=== PATIENT | male | born 1995 | race African-American/Black ===

== ENCOUNTER 2017-08-27 12:36 | Emergency (ER) | payer SELFPAY ==
[2017-08-27 12:37] VITALS: BP 157/84; PULSE 94; RESP 18; TEMP 37.2; O2SAT 99; BMI 28.8
[2017-08-27 13:00] LABS: Absolute Lymphocyte Count 1.97 X10^3/ul (0.83-4.51); Absolute Neutrophil Count 8.6 X10^3/uL (2.0-7.7); Basophil# 0.02 X10^3/uL; Basophil% 0.2 % (0-1); Eosinophil# 0.03 X10^3/uL; Eosinophils% 0.3 % (0-5); Hematocrit 48.2 % (40-54); Hemoglobin 16.6 g/dl (13.0-16.5); Lymphocyte # 1.97 X10^3/ul (4.0); Lymphocyte % 17.1 % (19-41); Mean Corp Hgb Conc 34.4 g/gl (32-36); Mean Corpuscular Hgb 31.2 pg (27.0-32.0); Mean Corpuscular Volume 90.6 fL (80-94); Mean Platelet Vol. 10.1 fl (6.2-12.0); Monocyte# 0.88 X10^3/uL; Monocyte% 7.7 % (0-10); Neutrophil # 8.58 X10^3/uL (2.7-7.7); Neutrophil % 74.5 % (47-70); POSITIVE COUNT NO; POSITIVE DIFFERENTIAL NO; POSITIVE MORPHOLOGY NO; Platelet Count 317 K/mm3 (150-450); RBC Distribution Width CV 12.5 % (11.6-14.6); RBC Distribution Width SD 41.2 fl (35.1-43.9); Red Blood Count 5.32 M/mm3 (4.6-6.2); White Blood Count 11.5 K/mm3 (4.4-11.0)
[2017-08-27 13:08] LABS: Anion Gap 7 (5-15); BUN 11 mg/dL (7-18); BUN/Creat Ratio 10.7 RATIO (10-20); Calcium,Total 9.6 mg/dL (8.5-10.1); Chloride 104 mmol/L (98-107); Creatinine, Serum 1.03 mg/dL (0.70-1.30); EST Glomerular Filtration Rate 94 mL/min (>60); Est Glom Filt Rate - Afr Amer 114 mL/min (>60); Estimated Creatinine Clearance 110.59 ml/min; Glucose 97 mg/dL (74-106); Potassium 3.6 mmol/L (3.5-5.1); Sodium Level 138 mmol/L (136-145)
--- NOTE | 2017-08-27 14:07 | ED.VISSUMM ---
- ER Visit Summary Date of Service: 08/27/17 Chief Complaint: Epigastric abdominal pain History of Present Illness: The patient is a 22 M recent sinus infection treated with antibiotics. Since Sunday has developed epigastric abdominal pain with nausea vomiting. And diarrhea. No melena. No hematemesis. No fever. Was treated at another ER diagnosis of viral syndrome. He is complaining of worse pain. Denies any prior abdominal surgeries. No abdominal trauma. No dysuria. No hematuria. Physical Examination: Young male no acute distress. Vital signs are stable afebrile. Pulse is 9 9% room air no signs of hypoxia. He does not look septic or toxic. H EENT exam is unremarkable. Extremities. Neck nontender no lymphadenopathy. Lungs clear to auscultation bilaterally. Heart regular rate and rhythm no murmur. Chest nontender. Abdomen soft. Nondistended normal bowel sounds no peritoneal signs. He does have epigastric tenderness. Both the right upper quadrant right lower quadrants are unremarkable. There is no Granados sign there is no McBurney's point tenderness. No hernias or masses. No signs of obstruction. No organomegaly. Normal bowel sounds. Moving all 4 extremities. Neurovascular intact. Back nontender. Skin unremarkable. Neurologic exam normal. Test Results: Fully awake and 11.5. H&H 1648 no bands. BMP was normal with a normal gap and creatinine of 1. Enzymes normal. Lipase normal UA normal. Emergency Department Course and Treatment: Pt. with epigastric abdominal pain. Treated with IV fluids, GI cocktail and Pepcid. Also Phenergan for nausea. Treatment Plan: Repeat exam at 1640 patient's abdomen benign. Resting comfortably. Again he has very mild epigastric reproducible pain there is no right upper or right lower quadrant pain there is no peritoneal signs there is no signs of obstruction. Patient is doing well I do not feel he needs imaging. There is no signs of this being cholecystitis or acute perforation or appendicitis. Will be placed on Prilosec for gastritis. Disposition: dc Impression: Acute epigastric abdominal pain secondary to gastritis This note was generated with Authentic Response dictation software. It may contain incorrect words, spelling, and punctuation that were not noted in review of the chart prior to signing ED Disposition - Plan for ED Patient: Chief Complaint: Abd Pain Referrals: Care Physician,No Primary [Primary Care Provider] -
[2017-08-27 14:08] LABS: Mucous, Urine 0 SEEN /hpf (<or=2+)
[2017-08-27 14:09] LABS: Color, Urine Yellow (Yellow); Glucose, Dipstick Normal (Normal); Leukocyte Esterase-Dipstick Negative /ul (Negative); Nitrite-Dipstick Negative (Negative); Occult Blood-Urine Negative /ul (Negative); Protein-Dipstick 15 mg/dl (Negative); Urine Bilirubin Dipstick Negative (Negative); Urine Clarity Sl. Cloudy (Clear); Urine Urobilinogen Normal (Normal)
[2017-08-27 14:12] LABS: Ketone-Dipstick 150 mg/dl (Negative)
[2017-08-27] MEDS: Famotidine 20 MG Tablet 40 MG PO (14:13)
[2017-08-27] MEDS: proMETHazine 25 MG/ML Syringe 12.5 MG IV (14:14)
[2017-08-27] MEDS: 0.9% Normal Saline 1,000 ML 1000 ML IV (14:14)
[2017-08-27 14:20] LABS: Bacteria RARE /hpf (None Seen); Red Blood Cells-Urine 0-5 SEEN /hpf (0-5); Squamous Epithelial Cells - UA 0-5 SEEN /hpf (0-5); White Blood Cells 0-5 SEEN /hpf (0-5)
[2017-08-27 14:35] LABS: AST(SGOT) 26 U/L (15-37); Alanine Aminotransfer ALT/SGPT 31 U/L (16-61); Albumin, Serum 4.6 g/dL (3.2-5.0); Alkaline Phosphatase 79 U/L (45-117); Bilirubin, Direct 0.12 mg/dL (0.00-0.30); Globulin 4.2 g/dL (2.2-4.2); Lipase 79 U/L (73-393); Protein, Total 8.8 g/dL (6.4-8.2)
[2017-08-27 15:05] VITALS: BP 127/88; PULSE 97; RESP 20; O2SAT 98
--- NOTE | 2017-08-27 16:46 | DCINST.ED_ITS ---
ED Disposition - Plan for ED Patient: Disposition: Home or Assisted Living Chief Complaint: Abd Pain Instructions: ED Abdominal Pain Unkn Cause, ED Gastritis Prescriptions: proMETHazine tablet [Phenergan tablet] 25 mg PO Q4H PRN PRN #10 tab PRN Reason: Nausea Omeprazole [Prilosec] 20 mg PO BID #10 cap Referrals: Kayla Loco [NON-STAFF] - 3-5 Days if not improving Additional Instructions: Fluids and rest. [place] diet and Return if increasing pain, throwing up blood or black or bloody stools or feeling worse. Phenergan as needed for nausea and Prilosec for irritation to your stomach.
[2017-08-27 17:04] VITALS: PULSE 101; RESP 16; O2SAT 99
== END 2017-08-27 17:17 | disposition home or self-care (01) ==
PROVIDERS: Emergency Provider Emergency Medicine
DX: K29.00 Acute gastritis without bleeding (principal)
CPT/HCPCS: 80048; 80076; 81001; 83690; 85025; 96361; 96374; 99284; J7030; A4216

== ENCOUNTER 2017-08-29 01:37 | Emergency (ER) | payer SELFPAY ==
[2017-08-29 01:38] VITALS: BP 152/93; PULSE 67; RESP 16; TEMP 36.9; O2SAT 100; BMI 27.1
--- NOTE | 2017-08-29 02:01 | RAD_ITS ---
STUDY: X-RAY CHEST REASON FOR EXAM: Male, 22 years old. Unresponsive TECHNIQUE: Single frontal view of the chest. COMPARISON: None. FINDINGS: The lungs are clear and expanded. There is no demonstrated pleural abnormality. Normal size heart. Normal mediastinum and cody. Normal visualized pulmonary arteries. Normal visualized aortic arch and descending thoracic aorta. Normal visualized thoracic spine. Normal visualized ribs, clavicles, and shoulders. There is no demonstrated abnormality of the visualized soft tissue structures of the upper abdomen. RAD/Chest 1 View (Portable) IMPRESSION: Normal x-ray examination of the chest. Electronically Signed: Orlando Sandy MD at 2:52 EDT Tel , Service support ,
--- NOTE | 2017-08-29 02:01 | EKG12_ITS ---
Test Reason : REPEAT Blood Pressure : / mmHG Vent. Rate : 065 BPM Atrial Rate : 065 BPM P-R Int : 140 ms QRS Dur : 094 ms QT Int : 426 ms P-R-T Axes : 054 075 -16 degrees QTc Int : 443 ms Normal sinus rhythm Incomplete right bundle branch block Nonspecific T wave abnormality Abnormal ECG Confirmed by ARON DANIELS, MARY ([id number]), book or script editor ROWENA JAVIER ([id number]) on 09/03/2017 3:29:19 PM Referred By: MELLISA Confirmed By:MARY SHARP MD
--- NOTE | 2017-08-29 02:03 | ED.VISSUMM ---
- ER Visit Summary Date of Service: 08/29/17 Chief Complaint: Unresponsive History of Present Illness: The patient is a 22 M recently evaluated and treated for gastritis 2 days ago who presents now with chief complaint of unresponsive. History is provided by the girlfriend. Patient is not speaking. Girlfriend states the patient has been taking the medications he was prescribed 2 days ago for gastritis. He had recently been on antibiotics as well for a sinus infection. He also ate some eggs that she said were later recalled because of Salmonella risk. Patient was doing better yesterday, but at dinnertime began complaining of not feeling well. He began vomiting and then was holding his left chest as if it hurt. He did not speak or vocalize his complaint. She states he then went unresponsive. History limited secondary to patient nonverbal. Physical Examination: Patient is well-nourished well-developed laying in bed, eyes closed. Responds to noxious stimuli. Pupils are equal round and reactive to light. Heart regular rate and rhythm without murmur. Lungs are clear to auscultation bilaterally. Pulses 2+ and symmetrical distal extremities. No rash or edema noted to the extremities. Abdomen is tender in the epigastrium. Bowel sounds normal. No guarding or rebound, no masses. Patient moves all extremities. Once awakened, patient mouths words but does not actually speak. Test Results: Abnormal Lab Results 08/29/17 08/29/17 08/29/17 01:50 01:50 01:50 WBC 13.2 H RBC 4.93 Hgb 15.3 Hct 44.4 MCV 90.1 MCH 31.0 MCHC 34.5 RDW 12.6 RDW Differential 41.1 Plt Count 300 MPV 10.0 Immature Gran % (Auto) 0.200 Neut % (Auto) 78.2 H Lymph % (Auto) 15.1 L [place] % (Auto) 5.7 Eos % (Auto) 0.6 Baso % (Auto) 0.2 Absolute Neuts (auto) 10.4 H Absolute Lymphs (auto) 2.00 Total Counted Not Reportable D-Dimer Quant (PE/DVT) < 0.27 L Sodium 141 Potassium 3.1 L Chloride 105 Carbon Dioxide 25.0 Anion Gap 11 BUN 10 Creatinine 1.09 Estim Creat Clear Calc 114.70 Est GFR (MDRD) Af Amer 107 Est GFR (MDRD) Non-Af 88 BUN/Creatinine Ratio 9.2 L Glucose 105 Calcium 8.6 Total Bilirubin 0.50 AST 20 ALT 25 Alkaline Phosphatase 66 Troponin I < 0.02 Total Protein 7.4 Albumin 3.9 Globulin 3.5 Albumin/Globulin Ratio 1.1 Lipase 129 Urine Opiates Screen Urine Methadone Screen Ur Barbiturates Screen Ur Phencyclidine Scrn Ur Amphetamines Screen U Methamphetamin-MDMA U Benzodiazepines Scrn Urine Cocaine Screen U Cannabinoids Screen Ur Drug Screen Comment Ethyl Alcohol 08/29/17 08/29/17 08/29/17 01:50 03:05 04:29 WBC RBC Hgb Hct MCV MCH MCHC RDW RDW Differential Plt Count MPV Immature Gran % (Auto) Neut % (Auto) Lymph % (Auto) [place] % (Auto) Eos % (Auto) Baso % (Auto) Absolute Neuts (auto) Absolute Lymphs (auto) Total Counted D-Dimer Quant (PE/DVT) Sodium Potassium Chloride Carbon Dioxide Anion Gap BUN Creatinine Estim Creat Clear Calc Est GFR (MDRD) Af Amer Est GFR (MDRD) Non-Af BUN/Creatinine Ratio Glucose Calcium Total Bilirubin AST ALT Alkaline Phosphatase Troponin I < 0.02 Total Protein Albumin Globulin Albumin/Globulin Ratio Lipase Urine Opiates Screen NEGATIVE Urine Methadone Screen NEGATIVE Ur Barbiturates Screen NEGATIVE Ur Phencyclidine Scrn NEGATIVE Ur Amphetamines Screen NEGATIVE U Methamphetamin-MDMA NEGATIVE U Benzodiazepines Scrn NEGATIVE Urine Cocaine Screen NEGATIVE U Cannabinoids Screen POSITIVE H Ur Drug Screen Comment Ethyl Alcohol < 3.0 Clinical Impression(s) from Imaging Studies Chest X-Ray 08/29/17 02:01 IMPRESSION: Normal x-ray examination of the chest. Electronically Signed: Orlando Sandy MD at 2:52 EDT Tel , Service support , Abdomen/Pelvis CT 08/29/17 02:07 IMPRESSION: No CT evidence of acute abdominopelvic pathology. Electronically Signed: Orlando Sandy MD at 2:51 EDT Tel , Service support , Emergency Department Course and Treatment: Patient presents unresponsive after indicating to his girlfriend that he was having abdominal and chest pain. Patient is indicating once he was aroused with noxious stimulus that his chest and abdomen hurt. Because this is his third healthcare encounter for similar complaint and his condition is apparently worsening, labs, EKG, chest x-ray and abdominal CT performed. EKG showed minimal ST elevation in V2 and T-wave inversion in the inferior leads. Initial troponin negative. A repeat EKG 30 minutes later showed no changes. Lab work was unremarkable. CT of the abdomen and pelvis showed no acute process. Patient's unresponsiveness seems more behavioral rather than due to an organic condition. Once patient was informed that he could not be appropriately helped if he would not talk to us, patient began communicating. No cause for patient's severe abdominal pain was noted, and further history provided by the girlfriend was that prior to presentation patient had a bag of hot Cheetos. He had also been smoking marijuana earlier in the day. Because his symptoms have been present for a couple days and he has been tolerating hot Cheetos and marijuana, it is unlikely this is severe pathology. Patient eventually requested to leave and wanted to go home rather than complete the workup. One final EKG and troponin were performed and were unchanged from the initial ones. he was discharged home with instructions to eat a bland diet until he is feeling better. Treatment Plan: [] Disposition: [] Impression: Acute gastritis This note was generated with [employer] dictation software. It may contain incorrect words, spelling, and punctuation that were not noted in review of the chart prior to signing ED Disposition - Plan for ED Patient: Disposition: Home or Assisted Living Chief Complaint: Chest Pain Instructions: ED Gastritis, ED Epigastric Pain [facility] [place] Referrals: Alberto Narayan MD [STAFF PHYSICIAN] - As soon as possible Additional Instructions: Take the medications you were given to help with your stomach pain after prior visit. Follow-up with a doctor as soon as possible to establish care and for reevaluation. Avoid spicy, greasy or fatty foods until you are feeling better. If you have any worsening of your condition or any new concerning symptoms, please return emergency department immediately for another evaluation.
--- NOTE | 2017-08-29 02:06 | ED.DCSUM_ITS ---
- ER Visit Summary Date of Service: 08/29/17 Chief Complaint: Unresponsive History of Present Illness: The patient is a 22 M recently evaluated and treated for gastritis 2 days ago who presents now with chief complaint of unresponsive. History is provided by the girlfriend. Patient is not speaking. Girlfriend states the patient has been taking the medications he was prescribed 2 days ago for gastritis. He had recently been on antibiotics as well for a sinus infection. He also ate some eggs that she said were later recalled because of Salmonella risk. Patient was doing better yesterday, but at dinnertime began complaining of not feeling well. He began vomiting and then was holding his left chest as if it hurt. He did not speak or vocalize his complaint. She states he then went unresponsive. History limited secondary to patient nonverbal. Physical Examination: Patient is well-nourished well-developed laying in bed, eyes closed. Responds to noxious stimuli. Pupils are equal round and reactive to light. Heart regular rate and rhythm without murmur. Lungs are clear to auscultation bilaterally. Pulses 2+ and symmetrical distal extremities. No rash or edema noted to the extremities. Abdomen is tender in the epigastrium. Bowel sounds normal. No guarding or rebound, no masses. Patient moves all extremities. Once awakened, patient mouths words but does not actually speak. Test Results: Abnormal Lab Results 08/29/17 08/29/17 08/29/17 01:50 01:50 01:50 WBC 13.2 H RBC 4.93 Hgb 15.3 Hct 44.4 MCV 90.1 MCH 31.0 MCHC 34.5 RDW 12.6 RDW Differential 41.1 Plt Count 300 MPV 10.0 Immature Gran % (Auto) 0.200 Neut % (Auto) 78.2 H Lymph % (Auto) 15.1 L [place] % (Auto) 5.7 Eos % (Auto) 0.6 Baso % (Auto) 0.2 Absolute Neuts (auto) 10.4 H Absolute Lymphs (auto) 2.00 Total Counted Not Reportable D-Dimer Quant (PE/DVT) < 0.27 L Sodium 141 Potassium 3.1 L Chloride 105 Carbon Dioxide 25.0 Anion Gap 11 BUN 10 Creatinine 1.09 Estim Creat Clear Calc 114.70 Est GFR (MDRD) Af Amer 107 Est GFR (MDRD) Non-Af 88 BUN/Creatinine Ratio 9.2 L Glucose 105 Calcium 8.6 Total Bilirubin 0.50 AST 20 ALT 25 Alkaline Phosphatase 66 Troponin I < 0.02 Total Protein 7.4 Albumin 3.9 Globulin 3.5 Albumin/Globulin Ratio 1.1 Lipase 129 Urine Opiates Screen Urine Methadone Screen Ur Barbiturates Screen Ur Phencyclidine Scrn Ur Amphetamines Screen U Methamphetamin-MDMA U Benzodiazepines Scrn Urine Cocaine Screen U Cannabinoids Screen Ur Drug Screen Comment Ethyl Alcohol 08/29/17 08/29/17 08/29/17 01:50 03:05 04:29 WBC RBC Hgb Hct MCV MCH MCHC RDW RDW Differential Plt Count MPV Immature Gran % (Auto) Neut % (Auto) Lymph % (Auto) [place] % (Auto) Eos % (Auto) Baso % (Auto) Absolute Neuts (auto) Absolute Lymphs (auto) Total Counted D-Dimer Quant (PE/DVT) Sodium Potassium Chloride Carbon Dioxide Anion Gap BUN Creatinine Estim Creat Clear Calc Est GFR (MDRD) Af Amer Est GFR (MDRD) Non-Af BUN/Creatinine Ratio Glucose Calcium Total Bilirubin AST ALT Alkaline Phosphatase Troponin I < 0.02 Total Protein Albumin Globulin Albumin/Globulin Ratio Lipase Urine Opiates Screen NEGATIVE Urine Methadone Screen NEGATIVE Ur Barbiturates Screen NEGATIVE Ur Phencyclidine Scrn NEGATIVE Ur Amphetamines Screen NEGATIVE U Methamphetamin-MDMA NEGATIVE U Benzodiazepines Scrn NEGATIVE Urine Cocaine Screen NEGATIVE U Cannabinoids Screen POSITIVE H Ur Drug Screen Comment Ethyl Alcohol < 3.0 Clinical Impression(s) from Imaging Studies Chest X-Ray 08/29/17 02:01 IMPRESSION: Normal x-ray examination of the chest. Electronically Signed: Orlando Sandy MD at 2:52 EDT Tel , Service support , Abdomen/Pelvis CT 08/29/17 02:07 IMPRESSION: No CT evidence of acute abdominopelvic pathology. Electronically Signed: Orlando Sandy MD at 2:51 EDT Tel , Service support , Emergency Department Course and Treatment: Patient presents unresponsive after indicating to his girlfriend that he was having abdominal and chest pain. Patient is indicating once he was aroused with noxious stimulus that his chest and abdomen hurt. Because this is his third healthcare encounter for similar complaint and his condition is apparently worsening, labs, EKG, chest x-ray and abdominal CT performed. EKG showed minimal ST elevation in V2 and T-wave inversion in the inferior leads. Initial troponin negative. A repeat EKG 30 minutes later showed no changes. Lab work was unremarkable. CT of the abdomen and pelvis showed no acute process. Patient's unresponsiveness seems more behavioral rather than due to an organic condition. Once patient was informed that he could not be appropriately helped if he would not talk to us, patient began communicating. No cause for patient's severe abdominal pain was noted, and further history provided by the girlfriend was that prior to presentation patient had a bag of hot Cheetos. He had also been smoking marijuana earlier in the day. Because his symptoms have been present for a couple days and he has been tolerating hot Cheetos and marijuana, it is unlikely this is severe pathology. Patient eventually requested to leave and wanted to go home rather than complete the workup. One final EKG and troponin were performed and were unchanged from the initial ones. he was discharged home with instructions to eat a bland diet until he is feeling better. Treatment Plan: [] Disposition: [] Impression: Acute gastritis This note was generated with NumberPicture dictation software. It may contain incorrect words, spelling, and punctuation that were not noted in review of the chart prior to signing ED Disposition - Plan for ED Patient: Disposition: Home or Assisted Living Chief Complaint: Chest Pain Instructions: ED Gastritis, ED Epigastric Pain [facility] [place] Referrals: Alberto Narayan MD [STAFF PHYSICIAN] - As soon as possible Additional Instructions: Take the medications you were given to help with your stomach pain after prior visit. Follow-up with a doctor as soon as possible to establish care and for reevaluation. Avoid spicy, greasy or fatty foods until you are feeling better. If you have any worsening of your condition or any new concerning symptoms, please return emergency department immediately for another evaluation.
--- NOTE | 2017-08-29 02:07 | CT_ITS ---
STUDY: CT ABDOMEN AND PELVIS WITHOUT CONTRAST REASON FOR EXAM: Male, 22 years old. Pain RADIATION DOSAGE (If Supplied By Facility): CTDIvol = ( 20.09 ) mGy, DLP = ( 1109.17 ) mGycm TECHNIQUE: Transaxial images were obtained from the dome of the diaphragm to the symphysis pubis without oral contrast, and without intravenous contrast. Sagittal and coronal images were reconstructed. Individualized dose optimization techniques were used for this CT. COMPARISON: None. FINDINGS: The visualized lung bases are unremarkable. The visualized portions of the heart are within normal limits. Normal liver. Normal gallbladder and extrahepatic biliary system. Normal spleen. Normal pancreas. Normal bilateral adrenal glands. Normal right kidney. Normal left kidney. Normal visualized stomach. Normal small intestine. Normal colon. The appendix is not seen and is reportedly absent. Normal abdominal aorta. Normal inferior vena cava. Normal retroperitoneum. Normal urinary bladder. Normal abdominal wall. Normal osseous structures. CT/Abdomen/Pelvis without Cont IMPRESSION: No CT evidence of acute abdominopelvic pathology. Electronically Signed: Orlando Sandy MD at 2:51 EDT Tel , Service support ,
[2017-08-29 02:10] LABS: Absolute Neutrophil Count 10.4 X10^3/uL (2.0-7.7); Basophil# 0.02 X10^3/uL; Basophil% 0.2 % (0-1); Eosinophil# 0.08 X10^3/uL; Eosinophils% 0.6 % (0-5); Hematocrit 44.4 % (40-54); Hemoglobin 15.3 g/dl (13.0-16.5); Lymphocyte % 15.1 % (19-41); Mean Corp Hgb Conc 34.5 g/gl (32-36); Mean Corpuscular Volume 90.1 fL (80-94); Monocyte# 0.75 X10^3/uL; Monocyte% 5.7 % (0-10); Neutrophil # 10.36 X10^3/uL (2.7-7.7); Neutrophil % 78.2 % (47-70); Platelet Count 300 K/mm3 (150-450); RBC Distribution Width CV 12.6 % (11.6-14.6); RBC Distribution Width SD 41.1 fl (35.1-43.9); Red Blood Count 4.93 M/mm3 (4.6-6.2); White Blood Count 13.2 K/mm3 (4.4-11.0)
[2017-08-29] MEDS: 0.9% Normal Saline 1,000 ML 1000 ML IV (02:11)
[2017-08-29 02:19] LABS: POSITIVE COUNT NO; POSITIVE DIFFERENTIAL NO; POSITIVE MORPHOLOGY NO
[2017-08-29 02:20] LABS: Alcohol, Blood (Medical)-Serum < 3.0 mg/dL
[2017-08-29 02:28] LABS: ALB/GLOB Ratio 1.1 RATIO (0.9-2.4); AST(SGOT) 20 U/L (15-37); Alanine Aminotransfer ALT/SGPT 25 U/L (16-61); Albumin, Serum 3.9 g/dL (3.2-5.0); Alkaline Phosphatase 66 U/L (45-117); Anion Gap 11 (5-15); BUN 10 mg/dL (7-18); BUN/Creat Ratio 9.2 RATIO (10-20); Calcium,Total 8.6 mg/dL (8.5-10.1); Chloride 105 mmol/L (98-107); Creatinine, Serum 1.09 mg/dL (0.70-1.30); EST Glomerular Filtration Rate 88 mL/min (>60); Est Glom Filt Rate - Afr Amer 107 mL/min (>60); Globulin 3.5 g/dL (2.2-4.2); Glucose 105 mg/dL (74-106); Lipase 129 U/L (73-393); Potassium 3.1 mmol/L (3.5-5.1); Protein, Total 7.4 g/dL (6.4-8.2); Sodium Level 141 mmol/L (136-145)
--- NOTE | 2017-08-29 02:28 | EKG12_ITS ---
Test Reason : REPEAT Blood Pressure : / mmHG Vent. Rate : 080 BPM Atrial Rate : 080 BPM P-R Int : 142 ms QRS Dur : 096 ms QT Int : 390 ms P-R-T Axes : 062 081 -13 degrees QTc Int : 449 ms Normal sinus rhythm Incomplete right bundle branch block Nonspecific T wave abnormality Abnormal ECG Confirmed by ARON DANIELS, MARY ([id number]), primer expeditor and drier ROWENA JAVIER ([id number]) on 09/04/2017 3:00:00 PM Referred By: MELLISA Confirmed By:MARY SHARP MD
[2017-08-29 02:30] LABS: D-Dimer Quantitative (DVT/PE) < 0.27 FEU/ug/m (0.27-0.49)
[2017-08-29 03:04] VITALS: BP 163/93; PULSE 82; RESP 20; TEMP 37.2; O2SAT 100
[2017-08-29] MEDS: proMETHazine 25 MG/ML Syringe 12.5 MG IV (03:04)
[2017-08-29 03:12] LABS: Vista UDS pH Range 7
[2017-08-29 03:24] LABS: Amphetamine Urine VISTA NEGATIVE (<1000 ng/mL); Barbiturate Urine VISTA NEGATIVE (< 200 ng/mL); Benzodiazepine Urine VISTA NEGATIVE (< 200 ng/mL); Cocaine Urine VISTA NEGATIVE (< 300 ng/mL); Ecstacy Urine VISTA NEGATIVE (< 500 ng/mL); Methadone Urine VISTA NEGATIVE (< 300 ng/mL); PCP Urine VISTA NEGATIVE (< 25 ng/mL); THC Urine VISTA POSITIVE (< 50 ng/mL)
[2017-08-29] MEDS: Ketorolac 30 MG/ML Syringe IV (03:33)
[2017-08-29 03:36] VITALS: BP 154/84; PULSE 64; RESP 18; O2SAT 100
[2017-08-29 04:05] VITALS: BP 154/99; PULSE 83; RESP 14; O2SAT 100
--- NOTE | 2017-08-29 04:28 | EKG12_ITS ---
Test Reason : UNRESPONSIVE Blood Pressure : / mmHG Vent. Rate : 077 BPM Atrial Rate : 077 BPM P-R Int : 138 ms QRS Dur : 092 ms QT Int : 394 ms P-R-T Axes : 054 081 033 degrees QTc Int : 445 ms Normal sinus rhythm Incomplete right bundle branch block Nonspecific T wave abnormality Confirmed by ARON DANIELS, MARY ([id number]), general expeditor ROWENA JAVIER ([id number]) on 09/03/2017 3:29:45 PM Referred By: MELLISA Confirmed By:MARY SHARP MD
[2017-08-29 05:13] VITALS: BP 152/99; PULSE 67; RESP 12; O2SAT 100
--- NOTE | 2017-08-29 05:14 | ED.DEP ---
ED Disposition - Plan for ED Patient: Disposition: Home or Assisted Living Chief Complaint: Chest Pain Instructions: ED Gastritis, ED Epigastric Pain [facility] Referrals: Alberto Narayan MD [STAFF PHYSICIAN] - As soon as possible Additional Instructions: Take the medications you were given to help with your stomach pain after prior visit. Follow-up with a doctor as soon as possible to establish care and for reevaluation. Avoid spicy, greasy or fatty foods until you are feeling better. If you have any worsening of your condition or any new concerning symptoms, please return emergency department immediately for another evaluation.
[2017-08-29 05:19] VITALS: BP 152/99; PULSE 67; RESP 12; O2SAT 100
== END 2017-08-29 05:19 | disposition home or self-care (01) ==
PROVIDERS: Emergency Provider Emergency Medicine
DX: K29.00 Acute gastritis without bleeding (principal); F12.90 Cannabis use, unspecified, uncomplicated
CPT/HCPCS: 71045; 74176; 80053; 80307; 80320; 83690; 84484; 85025; 85379; 93005; 96361; 96374; 96375; 99285; J7030; A4216; G0480

== ENCOUNTER → 2020-07-06 15:04 | Outpatient (CLI) | payer MEDICAID, SELFPAY ==
[2020-07-06 13:50] VITALS: BMI 34.1
[2020-07-06 16:47] LABS: Absolute Lymphocyte Count 1.74 X10^3/uL (0.83-4.51); Absolute Neutrophil Count 5.5 X10^3/uL (2.0-7.7); Basophil# 0.04 X10^3/uL; Basophil% 0.5 % (0-1); Eosinophil# 0.15 X10^3/uL; Eosinophils% 1.8 % (0-5); Hemoglobin 13.7 g/dL (13.0-16.5); Lymphocyte # 1.74 X10^3/ul (4.0); Lymphocyte % 21.4 % (19-41); Mean Corp Hgb Conc 31.9 g/dL (32-36); Mean Corpuscular Hgb 30.2 pg (27.0-32.0); Mean Corpuscular Volume 94.7 fL (80-94); Mean Platelet Vol. 10.4 fl (6.2-12.0); Monocyte# 0.66 X10^3/uL; Monocyte% 8.1 % (0-10); NRBC Flagged by Analyzer 0 % (0-5); Neutrophil # 5.51 X10^3/uL (2.7-7.7); Neutrophil % 67.8 % (47-70); Platelet Count 300 K/mm3 (150-450); RBC Distribution Width CV 12.5 % (11.6-14.6); RBC Distribution Width SD 43.2 fl (35.1-43.9); Red Blood Count 4.54 M/mm3 (4.6-6.2); White Blood Count 8.1 K/mm3 (4.4-11.0)
[2020-07-06 17:02] LABS: Vitamin D,25 Hydroxy 9.7 ng/mL
[2020-07-06 17:04] LABS: Hemoglobin A1c 5.4 % (3.8-5.6)
[2020-07-06 17:05] LABS: AST(SGOT) 23 U/L (15-37); Alanine Aminotransfer ALT/SGPT 40 U/L (16-61); Albumin, Serum 4.3 g/dL (3.2-5.0); Alkaline Phosphatase 82 U/L (45-117); Anion Gap 6 (5-15); BUN 7 mg/dL (7-18); BUN/Creat Ratio 6.9 RATIO (10-20); Calcium,Total 9.6 mg/dL (8.5-10.1); Chloride 107 mmol/L (98-107); Cholesterol 232 mg/dL (200); Creatinine, Serum 1.02 mg/dL (0.70-1.30); EST Glomerular Filtration Rate 93 mL/min (>60); Est Glom Filt Rate - Afr Amer 113 mL/min (>60); Globulin 4.1 g/dL (2.2-4.2); Glucose 90 mg/dL (74-106); High Density Lipoprotein 49 mg/dL; Potassium 4.3 mmol/L (3.5-5.1); Protein, Total 8.4 g/dL (6.4-8.2); Sodium Level 143 mmol/L (136-145); Thyroid Stim Hormone (TSH) 4.95 uIU/mL (0.358-3.74); Triglycerides 257 mg/dL; Very Low Density Lipoprotein 51 mg/dL (5-40)
[2020-07-07 08:44] LABS: Free T3 2.6 pg/mL (2.18-3.98); T4 Free Direct 0.79 ng/dL (0.76-1.46)
[2020-07-08 16:09] LABS: Thyroid Peroxidase AB > 600 IU/mL (0-34)
[2020-07-08 16:17] LABS: Thyroglobulin Antibody 13.7 IU/mL (0.0-0.9)
== END ==
PROVIDERS: PCP Internal Medicine; Referring Provider Internal Medicine; Visit Provider Internal Medicine
DX: R10.33 Periumbilical pain (principal); R79.89 Other specified abnormal findings of blood chemistry; Z13.1 Encounter for screening for diabetes mellitus; Z13.220 Encounter for screening for lipoid disorders
CPT/HCPCS: 36415; 80053; 80061; 82306; 83036; 84439; 84443; 84481; 85025; 86376; 86800

== ENCOUNTER 2020-07-27 07:43 | Day surgery (SDC) | payer MEDICAID, SELFPAY ==
[2020-07-16 14:27] VITALS: BMI 33.5
[2020-07-27] VITALS (7 sets, daily range): BP systolic 107–130; BP diastolic 60–77; PULSE 48–70; RESP 16; TEMP 36.5–37; O2SAT 97–100; BMI 33.3
--- NOTE | 2020-07-27 | COLBX_PTH ---
PATIENT: ABRAHAM GUERRA LOC: EN U#:[id number] AGE/SX: 25/M ROOM: RE07/27/[address]: Dr. Louie Lerma MD : [id number] BED: DIS: 07/27/2020 SPEC #: [id number] RECD: 07/27/20 11:39 STATUS: PANFILO REBelen #: [id number] SOFY: 07/27/20 00:[address]: Louie Lerma DEPT: SURGICAL PATHOLOGY RECD BY: Emery López ENTERED: 07/27/20 11:40 SP TYPE: COLON BX OTHR DR: Dr. Lizett Chavez MD Tissues: A - Duodenum, NOS B - Gastric mucous membrane C - Esophageal mucous membrane D - Esophageal mucous membrane E - COLON BIOPSY F - Transverse colon Procedures: Surgery Specimen Level IV HEADER OPERATION: Colonoscopy, EGD ([facility] [place]) PRE-OP DIAGNOSIS: Abdominal pain TISSUE SUBMITTED: A - Biopsy duodenum, B - Biopsy antrum for H. pylori and path, C - Biopsy distal esophagus, D - Biopsy mid esophagus, E - Biopsies random colon, F - Biopsy mid transverse polyp MICROSCOPIC DIAGNOSIS A. Duodenum, biopsy: Mild nonspecific chronic inflammation and Erika's gland hyperplasia. B. Gastric antrum, biopsy: Chronic gastritis. See comment. C. Distal esophagus, biopsy: Fragments of benign squamous mucosa. No evidence of inflammation. D. Mid esophagus, biopsy: Fragment of benign squamous mucosa. No evidence of inflammation. E. Colon, random biopsy: Minute fragment of hyperplastic polyp. No evidence of colitis. F. Mid transverse colon polyp, biopsy: Fragments of hyperplastic polyp. AM:rosa 07/28/2020 COMMENT B. The results of immunohistochemistry for Helicobacter pylori will be reported separately ([id number]). MICROSCOPIC DESCRIPTION Slides are reviewed. GROSS DESCRIPTION A - Received in fixative is one container labeled with the patient's name and designated duodenum biopsy. The specimen consists of one irregular fragment of light bennett soft tissue that measures 0.5 x 0.3 x 0.1 cm. The specimen is totally submitted in one cassette. B - Received in fixative is one container labeled with the patient's name and designated gastric antrum biopsy. The specimen consists of two irregular fragments of light bennett soft tissue that in aggregate measure 0.3 x 0.2 x 0.1 cm. The specimen is totally submitted in one cassette. C - Received in fixative is one container labeled with the patient's name and designated distal esophagus. The specimen consists of multiple irregular fragments of light bennett soft tissue that in aggregate measure 1 x 0.5 x <0.1 cm. The specimen is totally submitted in one cassette. D - Received in fixative is one container labeled with the patient's name and designated mid esophagus. The specimen consists of one irregular fragment of light bennett soft tissue that measures 0.5 x 0.3 x <0.1 cm. The specimen is totally submitted in one cassette. E - Received in fixative is one container labeled with the patient's name and designated random colon biopsy. The specimen consists of multiple irregular fragments of light bennett soft tissue that in aggregate measure 1 x 0.6 x 0.2 cm. The specimen is totally submitted in one cassette. F - Received in fixative is one container labeled with the patient's name and designated mid transverse polyps. The specimen consists of multiple irregular fragments of light bennett soft tissue that in aggregate measure 1 x 0.5 x 0.1 cm. The specimen is totally submitted in one cassette. / AM:rosa 07/27/20 TC:3 CPT: 82610 x6
--- NOTE | 2020-07-27 07:50 | HP.PCM_ITS ---
Problem List (1) Abdominal pain Status: Acute Qualifiers: History and Physical Date of Admission: 07/27/20 Intake Visit Reasons: Periumbilical Pain Chief Complaint: abd pain Attendance Secretary Required: No Is patient in pain?: No Allergies No Known Allergies Allergy (Verified 07/16/20 14:28) Medications proMETHazine tablet [Phenergan tablet] 25 mg PO Q4H PRN PRN #10 tab 08/27/17 [Rx Confirmed 07/16/20] PFSH Medical History (Updated 07/16/20 @ 15:[address] Louie Lerma MD) Abdominal pain (Acute) No significant medical problems (Acute) Surgical History (Updated 07/16/20 @ 14:14 by Guillermina Ramos) History of appendectomy (Acute) Family History (Updated 07/06/20 @ 13:50 by Yesica Franz) Mother Asthma Social History (Updated 07/16/20 @ 15:[address] Louie Lerma MD) Smoking Status: Never smoker alcohol intake: never substance use type: does not use HPI HPI HPI: ABRAHAM GUERRA, is a 25 M who presents to the office today for surgical consultation regarding spasms of abdominal pain. The patient is referred by Dr. Lizett Chavez written copy my surgical consult recommendations will return to him. The patient states that several years back when he had an infected tooth he was taken excess amount of ibuprofen. He then actually was hospitalized with what sounds like acute ibuprofen induced gastritis. He states he is never quite been the same since then. He will have spasms of severe pain in the mid abdomen and now it will awaken him from sleep. He will have nausea and vomiting and then he will have the urge to have a bowel movement. That then intensifies the pain. He denies bright red blood per rectum or melena. He has been placed on Zofran and Pepto-Bismol. He has had a history of a previous appendectomy. He states he is never been diagnosed with a small bowel obstruction. He states that at this very moment in time he is pain-free. His mother has asthma but there is no family history of colon polyps or colon cancer. He works a couple different jobs currently employed by the [employer]. The pain when it occurs is extraordinarily severe in nature. He will break out in a sweat. Laboratory notable for thyroid peroxidase antibody greater than 600. Thyroglobulin antibody 13.7 which is high. TSH 4.95. White count 8.1 with a hemoglobin 13.7 hematocrit 43 platelet count 300,000. Normal differential. BUN 7 creatinine 1.02. He denies fever. Has had no weight loss. In between these episodes he feels normal. A consideration was made for hereditary porphyria. Not know whether this could possibly be gallbladder disease of the patient's reaction seems excessive. The patient does not recall a recent upper or lower endoscopy HPI HPI HPI: ABRAHAM GUERRA, is a 25 M who presents to the office today for ROS General General: No weight change, appetite, fatigue, colon cancer, breast cancer or weakness HEENT HEENT: No difficulty swallowing, eye injury, eye surgery, swollen glands or hoarseness Endo Endocrine: No thyroid disease, diabetes mellitus, thyroid cancer, Hair loss, heat intolerance or cold intolerance Skin Skin: Yes rash; no changing moles Musc Musculoskeletal: No back problems, arthritis, rheumatoid arthritis, gout or joint pain Cardio Cardiovascular: No murmur, pacemaker, heart disease, atrial fibrillation, high blood pressure, heart attack, heart stent, palpitations, shortness of breat with exertion or chest pain Psych Psychiatric: No depression, anxiety or hearing voices Resp Respiratory: No shortness of breath, No sleep apnea, No cough, No COPD, No asthma, No emphysema, No wheezing Gastro Gastrointestinal: No abdominal pain, No nausea or vomiting, No diarrhea, No constipation, No blood in stool, No acid reflux, No hemorrhoids, No ulcers, No gallbladder problem, No black,tarry stools Neuro Neurologic: No weakness Exam Const General: cooperative, healthy appearing, comfortable, no acute distress Nutritional Appearance: overweight Orientation: alert, oriented x3 HENAZ Head: normal to inspection Eyes General: appearance normal, both eyes and all related structures Neck Neck: normal visual inspection Chest Chest palpation & inspection: normal inspection of the chest Resp Effort & Inspection: normal respiratory effort Auscultation: clear to auscultation bilaterally Cardio Rate: regular rate Rhythm: regular rhythm Heart Sounds: no murmurs GI Palpation: soft, no hepatosplenomegaly Auscultation: normal bowel sounds Musc Cervical Spine: normal cervical lordosis Skin General: no rashes or lesions noted Neuro Cognition: normal cognition Extrem General: no calf tenderness Psych Affect: normal affect Assessment & Plan Problems 1. Generalized abdominal pain R10.84 Plan Severe generalized abdominal pain associated with nausea vomiting urgent bowel movement. Undetermined etiology. Noncontrasted CT scan not revealing. I certainly concur with ongoing evaluation. I would recommend a esophagogastroduodenoscopy with possible biopsy inspection for possible H. pylori or eosinophilic esophagitis or celiac disease. I additionally recommend a colonoscopy at length with random colonic biopsies. Looking for the potential of inflammatory bowel disease. Certainly the patient could have a more unusual presentation of carcinoid or pheochromocytoma. Pending ongoing evaluation certainly would consider gallbladder ultrasound/HIDA scan. I suppose finally his symptoms could be very severe irritable bowel syndrome but other etiologies need to be evaluated. He has had an opportunity to ask and have questions answered. I appreciate the opportunity of assisting with the surgical care. We will schedule and expedite his management. His thyroid abdomen allergies suspected thyroiditis identified. Not clear to me that this would be associated with his current symptoms. Copy: Dr. Lizett Lerma M.D., F.A.C.S. Coding Level of Care Code 08328 Diagnoses Generalized abdominal pain R10.84 ??Abdominal location: generalized I have re-examined the patient. There are no clinical changes since date of exam. Procedure Criteria Procedure Type: Elective COVID Risk Discussion: The surgeon/proceduralist and patient have discussed in detail the risk of exposure to and/or potential harm posed by the COVID-19 virus with having a surgery/procedure at this time versus the risk of delaying the surgery/procedure. It is not possible to know either the risk of delaying the surgery or procedure or chance of getting an infection with perfect accuracy, but a joint decision was made between the patient and the surgeon/proceduralist to proceed at this time with the scheduled surgery/procedure as indicated on the consent form.
[2020-07-27] MEDS: Lactated Ringers 1,000 ML 100 ML IV (08:17)
--- NOTE | 2020-07-27 08:45 | IMM_PTH ---
PATIENT: ABRAHAM GUERRA LOC: EN U#:[id number] AGE/SX: 25/M ROOM: RE07/27/[address]: Dr. Louie Lerma MD : 1995 BED: DIS: 07/27/2020 SPEC #: [id number] RECD: 07/27/20 12:43 STATUS: PANFILO REQ #: [id number] SOFY: 07/27/20 08:[address]: Louie Lerma DEPT: IMMUNOHISTOCHEMISTRY RECD BY: Charlette Link ENTERED: 07/27/20 12:44 SP TYPE: IMMUNO OTHR DR: Dr. Lizett Chavez MD Tissues: Stomach, NOS Procedures: H Pylori (initial) PHYSICIAN & INSTITUTION [place] [address] SPECIMEN INFORMATION: Tissue Source: B - Antrum Clinical Info: Abdominal pain Specimen Number: [id number] CPT code: 22530 METHODOLOGY: Deparaffinized sections of prefer/formalin-fixed tissue or PAP/DQ stained slides are incubated with monoclonal/polyclonal antibodies/oligonucleotide probes. Localization is made via biotin free immunoperoxidase method. Appropriate controls are performed and reacted as expected. Results on target cell population are indicated in the following table: RESULTS: ANTIBODY / CLONE RESULT Block B H Pylori (polyclonal) negative These tests were developed and their performance characteristics determined by [facility]. They may not have been cleared or approved by the U.S. Food and Drug Administration. The FDA has determined that such clearance or approval is not necessary. INTERPRETATION: B. Antrum, biopsy: Negative for Helicobacter pylori organisms. AM:rosa 07/28/2020
--- NOTE | 2020-07-27 09:24 | OP.CCLET_ITS ---
07/27/2020 Lizett Chavez [facility] [address] [place] [address] Re : Upper GI endoscopy procedure for Manav Rebolledo Dear Dr. Chavez This procedure was performed on Monday, July 27, 2020. My impressions and recommendations are as follows: Impressions : - LA Grade A reflux esophagitis. Biopsied. - Normal mid esophagus. Biopsied. - Small hiatal hernia. - Erythematous mucosa in the antrum. Biopsied. - Normal examined duodenum. Biopsied. Recommendations : - Discharge patient to home. - Resume previous diet. - Continue present medications. - Telephone my office for pathology results in 1 week. Suspect gastritis and esophagitis. Will treat with omeprazole. If pain doesn't resolve then consider gallbladder U/S and/or HIDA - Use Prilosec (omeprazole) 40 mg PO daily. My findings are described in the full procedure note, which is enclosed. If I can be of further assistance, please feel free to contact me at Doctor phone number(s): Work: . Sincerely, Louie Lerma MD 07/27/2020 9:24:13 AM This report has been signed electronically.
--- NOTE | 2020-07-27 09:24 | OP.EGD_ITS ---
Patient Name: Manav Rebolledo Procedure Date: 07/27/2020 8:40 AM Date of : 1995 Age: 25 Procedure: Upper GI endoscopy Indications: Periumbilical abdominal pain Providers: Louie Lerma MD Referring MD: Lizett Chavez Medicines: See the Anesthesia note for documentation of the administered medications Complications: No immediate complications. Procedure: Pre-Anesthesia Assessment: - Prior to the procedure, a History and Physical was performed, and patient medications and allergies were reviewed. The patient's tolerance of previous anesthesia was also reviewed. The risks and benefits of the procedure and the sedation options and risks were discussed with the patient. All questions were answered, and informed consent was obtained. Prior Anticoagulants: The patient has taken no previous anticoagulant or antiplatelet agents. ASA Grade Assessment: I - A normal, healthy patient. After reviewing the risks and benefits, the patient was deemed in satisfactory condition to undergo the procedure. After obtaining informed consent, the endoscope was passed under direct vision. Throughout the procedure, the patient's blood pressure, pulse, and oxygen saturations were monitored continuously. The Endoscope was introduced through the mouth, and advanced to the second part of duodenum. The upper GI endoscopy was accomplished without difficulty. The patient tolerated the procedure well. Scope In: 8:55:45 AM Scope Out: 9:02:32 AM Total Procedure Duration Time 0 hours 6 minutes 47 seconds Findings: LA Grade A (one or more mucosal breaks less than 5 mm, not extending between tops of 2 mucosal folds) esophagitis with no bleeding was found 41 cm from the incisors. Biopsies were taken with a cold forceps for histology. The mid esophagus was normal. Biopsies were taken with a cold forceps for histology. A small hiatal hernia was present. Diffuse mildly erythematous mucosa without bleeding was found in the gastric antrum. Biopsies were taken with a cold forceps for histology. The examined duodenum was normal. Biopsies were taken with a cold forceps for histology. Impression: - LA Grade A reflux esophagitis. Biopsied. - Normal mid esophagus. Biopsied. - Small hiatal hernia. - Erythematous mucosa in the antrum. Biopsied. - Normal examined duodenum. Biopsied. Recommendation: - Discharge patient to home. - Resume previous diet. - Continue present medications. - Telephone my office for pathology results in 1 week. Suspect gastritis and esophagitis. Will treat with omeprazole. If pain doesn't resolve then consider gallbladder U/S and/or HIDA - Use Prilosec (omeprazole) 40 mg PO daily. Procedure Code(s): --- Professional --- 78730, Esophagogastroduodenoscopy, flexible, transoral; with biopsy, single or multiple CPT copyright 2017 [employer]. All rights reserved. The codes documented in this report are preliminary and upon preschool assistant principal review may be revised to meet current compliance requirements. Louie Lerma MD 07/27/2020 9:24:13 AM This report has been signed electronically. Number of Addenda: 0 Note Initiated On: 07/27/2020 8:40 AM
--- NOTE | 2020-07-27 09:27 | OP.CCLET_ITS ---
07/27/2020 Lizett Chavez [facility] [address] [place] [address] Re : Colonoscopy procedure for Manav Rebolledo Dear Dr. Chavez This procedure was performed on Monday, July 27, 2020. My impressions and recommendations are as follows: Impressions : - One 10 mm polyp in the mid transverse colon, removed with a cold biopsy forceps. Resected and retrieved. - Biopsies were taken with a cold forceps from the entire colon for evaluation of microscopic colitis. Recommendations : - Discharge patient to home. - Resume previous diet. - Continue present medications. - Repeat colonoscopy in 5 years for surveillance. - Telephone my office for pathology results in 1 week. My findings are described in the full procedure note, which is enclosed. If I can be of further assistance, please feel free to contact me at Doctor phone number(s): Work: . Sincerely, Louie Lerma MD 07/27/2020 9:27:04 AM This report has been signed electronically.
--- NOTE | 2020-07-27 09:27 | OP.COLON_ITS ---
Patient Name: Manav Rebolledo Procedure Date: 07/27/2020 9:04 AM Date of : 1995 Age: 25 Procedure: Colonoscopy Indications: Periumbilical abdominal pain Providers: Louie Lerma MD Referring MD: Lizett Chavez Medicines: See the Anesthesia note for documentation of the administered medications Patient Profile: Last Colonoscopy: none. The patient's first colonoscopy is today. Complications: No immediate complications. Procedure: Pre-Anesthesia Assessment: - Prior to the procedure, a History and Physical was performed, and patient medications and allergies were reviewed. The patient's tolerance of previous anesthesia was also reviewed. The risks and benefits of the procedure and the sedation options and risks were discussed with the patient. All questions were answered, and informed consent was obtained. Prior Anticoagulants: The patient has taken no previous anticoagulant or antiplatelet agents. ASA Grade Assessment: I - A normal, healthy patient. After reviewing the risks and benefits, the patient was deemed in satisfactory condition to undergo the procedure. After I obtained informed consent, the scope was passed under direct vision. Throughout the procedure, the patient's blood pressure, pulse, and oxygen saturations were monitored continuously. The Colonoscope was introduced through the anus and advanced to the cecum, identified by appendiceal orifice and ileocecal valve. The colonoscopy was performed without difficulty. The patient tolerated the procedure well. The quality of the bowel preparation was good. The ileocecal valve and the appendiceal orifice were photographed. Scope In: 9:05:07 AM Scope Withdrawal Time 0 hours 9 minutes 41 seconds Scope Out: 9:17:48 AM Total Procedure Duration Time 0 hours 12 minutes 41 seconds Findings: The perianal and digital rectal examinations were normal. A 10 mm polyp was found in the mid transverse colon. The polyp was sessile. The polyp was removed with a cold biopsy forceps. Resection and retrieval were complete. The exam was otherwise normal throughout the examined colon. Biopsies for histology were taken with a cold forceps from the entire colon for evaluation of microscopic colitis. Impression: - One 10 mm polyp in the mid transverse colon, removed with a cold biopsy forceps. Resected and retrieved. - Biopsies were taken with a cold forceps from the entire colon for evaluation of microscopic colitis. Recommendation: - Discharge patient to home. - Resume previous diet. - Continue present medications. - Repeat colonoscopy in 5 years for surveillance. - Telephone my office for pathology results in 1 week. Procedure Code(s): --- Professional --- 95079, Colonoscopy, flexible; with biopsy, single or multiple Diagnosis Code(s): --- Professional --- D12.3, Benign neoplasm of transverse colon (hepatic flexure or splenic flexure) R10.33, Periumbilical pain CPT copyright 2017 [employer]. All rights reserved. The codes documented in this report are preliminary and upon horticulture worker review may be revised to meet current compliance requirements. Louie Lerma MD 07/27/2020 9:27:04 AM This report has been signed electronically. Number of Addenda: 0 Note Initiated On: 07/27/2020 9:04 AM
== END 2020-07-27 10:09 | disposition home or self-care (01) ==
LOC: EN 07:43 → AC 07:43
PROVIDERS: PCP Internal Medicine; Referring Provider Internal Medicine; Visit Provider Surgery
PROC: 0DJD8ZZ Inspection of Lower Intestinal Tract, Via Natural or Artificial Opening Endoscopic (ICD-10-PCS; CPT 45378; principal; 2020-07-27 08:40)
DX: R10.33 Periumbilical pain (principal); Z20.828 Contact with and (suspected) exposure to other viral communicable diseases; K21.00 Gastro-esophageal reflux disease with esophagitis, without bleeding; K44.9 Diaphragmatic hernia without obstruction or gangrene; D12.3 Benign neoplasm of transverse colon
CPT/HCPCS: 43239; 45380; 87426; 88305; 88342; C9803; J7120

== ENCOUNTER 2020-09-19 10:45 | Emergency (ER) | payer MEDICAID, SELFPAY ==
[2020-07-27 07:57] VITALS: BMI 33.3
[2020-09-19 10:46] VITALS: BP 148/84; PULSE 72; RESP 17; TEMP 37.1; O2SAT 100; BMI 31.5
--- NOTE | 2020-09-19 11:05 | RAD_ITS ---
STUDY: X-RAY CHEST REASON FOR EXAM: Male, 25 years old. abd pain TECHNIQUE: Single AP portable view of the chest. COMPARISON: 08/29/2017 FINDINGS: The lungs are clear and expanded. There is no demonstrated pleural abnormality. Normal size heart. Normal mediastinum and cody. Normal visualized pulmonary arteries. Normal visualized aortic arch and descending thoracic aorta. Normal visualized thoracic spine. Normal visualized ribs, clavicles, and shoulders. There is no demonstrated abnormality of the visualized soft tissue structures of the upper abdomen. RAD/Chest 1 View (Portable) IMPRESSION: Normal x-ray examination of the chest. Electronically Signed: Fantasma Beard MD at 12:45 EDT Tel , Service support ,
--- NOTE | 2020-09-19 11:05 | CT_ITS ---
STUDY: CT ABDOMEN AND PELVIS WITH CONTRAST REASON FOR EXAM: Male, 25 years old. upper abd pain, vomiting RADIATION DOSAGE (If Supplied By Facility): CTDIvol = ( 13.10 ) mGy, DLP = ( 836.30 ) mGycm TECHNIQUE: Transaxial images were obtained from the dome of the diaphragm to the symphysis pubis without oral contrast. IV 100mL Isovue-370 was administered. Sagittal and coronal images were reconstructed. Individualized dose optimization techniques were used for this CT. COMPARISON: 08/29/2017 FINDINGS: The visualized lung bases are unremarkable. The visualized portions of the heart are within normal limits. Normal liver. Normal gallbladder and extrahepatic biliary system. Normal spleen. Normal pancreas. Normal bilateral adrenal glands. Normal right kidney. Normal left kidney. Normal visualized stomach. Normal small intestine. Normal colon. There is non-visualization of the appendix. Normal abdominal aorta. Normal inferior vena cava. Normal retroperitoneum. Normal urinary bladder. Normal abdominal wall. Normal osseous structures. CT/Abdomen/Pelvis W IV Cont ONLY IMPRESSION: Normal enhanced CT of the abdomen and pelvis. Electronically Signed: Fantasma Beard MD at 13:06 EDT Tel , Service support ,
--- NOTE | 2020-09-19 11:08 | EDS_ITS ---
HPI HPI - GI History of Present Illness Chief Complaint: Abd Pain Informant: patient and spouse/S.O. Abdominal Pain/Flank Pain Onset: Today (around 5 hrs ago, when awoke) Timing: Continuous Quality: - (unknown) Location: Epigastric Current Severity: Severe Maximum Severity: Severe Worsened by: - (unk) Relieved by: Nothing (tried pepto-bismol in addition to his Rx'd medications) Nausea/Vomiting/Emesis GI Symptom: Positive for Nausea and Vomiting Onset: Today Quality: Positive for Nonbilious; Negative for Blood streaks, Coffee ground and Hematemesis Diarrhea/Melena/Hematochezia GI Symptom: Negative for Diarrhea, Melena and Hematochezia Narrative Narrative: Patient presents in immense upper abdominal discomfort, history is extremely limited because the patient is moaning and will not talk, he will answer questions with nodding but he will not speak when asked directly. His significant other provides the majority of the history. He had his wisdom teeth extracted, all 4, about 4 days ago. He was prescribed ibuprofen, and a prescription is written for 600 mg every 6 hours. It is not PRN. She states he has been taking it according to the prescription. She states he has seen GI in the past for some type of gastrointestinal disorder that was a result of taking lots of NSAIDs. He now is on Prilosec. He confirms that this discomfort is very similar to what he experienced before. He did vomit this morning, the significant other states it was pink because he had just swallowed Pepto-Bismol but denies seeing any blood. The patient also confirms that his postoperative mouth pain is controlled and not nearly as bad as his abdomen. [facility] Medical History Abdominal pain No significant medical problems Home Medications ondansetron HCl 4 mg PO PRN PRN 07/22/20 [History Last Taken Unknown] amoxicillin 875 mg PO BID 09/19/20 [History Last Taken Unknown] dexamethasone 0.75 mg PO TID 09/19/20 [History Last Taken Unknown] omeprazole 40 mg PO DAILY #30 capsule. 09/19/20 [Rx Last Taken Unknown] sucralfate [Carafate] 1 g PO TID #21 tab 09/19/20 [Rx Last Taken Unknown] Allergy/AdvReac Type Severity Reaction Status Date / Time No Known Allergies Allergy Verified 07/22/20 10:58 Family History (Updated 07/06/20 @ 13:50 by Yesica Franz) Mother Asthma Surgical History History of appendectomy Social History Smoking Status: Former smoker alcohol intake: never substance use type: does not use ROS ROS ED Review of Systems ROS Unobtainable: other Details: due to acuity/condition ENT ENT ED: Reports other Details: postoperative gingival/dental soreness Gastrointestinal Gastrointestinal: Reports abdominal pain, nausea and vomiting; Denies melena Musculoskeletal Musculoskeletal: Denies back pain EXAM Physical Exam Const Vital Signs: 09/19/20 10:46 09/19/20 12:51 Temperature 98.8 F Temperature Source Oral Pulse Rate 72 50 L Respiratory Rate 17 14 Blood Pressure 148/84 H 144/78 H Blood Pressure Mean 105 100 Pulse Ox 100 100 Oxygen Delivery Method Room Air Room Air Positive well nourished and well developed General Appearance ED: well developed and in distress Positive for moderate (painful; moaning continuously) HEENT Reports moist mucous membranes and other mild trismus. all 4 3rd molar extraction sites appear benign, within limits of exam. normocephalic and atraumatic Eyes PERRL and EOMs intact bilaterally Neck full ROM, no lymphadenopathy and supple Resp normal respiratory effort and clear to auscultation bilaterally Cardio regular rate, regular rhythm and no murmurs GI non-distended Auscultation: normoactive bowel sounds Palpation: soft, tender epigastric and LUQ and guarding LUQ; Negative for rebound tenderness present Back/Spine no CVA tenderness General Back: other FROM Extremity normal to inspection General Extremety ED: Negative for edema, pulses abnormal or tenderness General Extremity: Negative for edema or pulses abnormal Neuro oriented x3, CN's II-XII intact bilaterally and no sensory deficits noted Sensorium / Orientation: awake and alert Motor Exam: strength 5/5 throughout Psych Mood & Affect: anxious Skin no rashes or lesions noted and no wounds Rashes: no rashes MDM MDM MDM Narrative Medical decision making narrative: Patient has mild leukocytosis, however he is on dexamethasone that was given to him by his dentist, which could be causing that. He also has hypokalemia, however I think this is likely due to shift from an acute respiratory alkalosis since he was hyperventilating. The patient confirms later that he had a potassium checked week or 2 ago and it was normal and he agrees that he was hyperventilating. He was given several doses of morphine here after still being in a lot of discomfort, prior to getting his CT and chest x-ray, which showed nothing acute and no free air, respectively on my interpretation with regards to the 1 view chest x-ray. Patient was given Reglan initially but still had nausea, he was then given Zofran. Eventually we were able to get him to drink a GI cocktail which he confirmed completely relieved his discomfort. He was able to provide a good history after that, he had a negative review of systems except for postoperative soreness in his mouth and the abdominal symptoms. He confirms that he had an EGD but does not know exactly what was found. He states he was given prescription omeprazole 40 mg but he does not take it regularly. He is doing well enough to be discharged home according to him. He is advised to continue the amoxicillin and dexame thasone according to his dentist recommendation, however he should discontinue the ibuprofen completely. I am recommending that he also take the omeprazole 40 mg once daily for the next 2 weeks, I am prescribing him Carafate in case he does have an ulcer, he was given a dose here additionally, and advised to stick with a liquid and possibly bland/BRAT diet for the next 24-48 hours and use Mylanta as needed for recurrent discomfort. All questions answered at the bedside he was comfortable with that overall plan we discussed reasons to return. Lab Data Attestation: I reviewed the patient's lab results. Labs: Laboratory Results - last 24 hr 09/19/20 09/19/20 11:17 11:17 WBC 12.5 H RBC 4.92 Hgb 15.1 Hct 44.6 MCV 90.7 MCH 30.7 MCHC 33.9 RDW Std Deviation 41.1 RDW Coeff of Tanya 12.4 Plt Count 335 MPV 10.0 Immature Gran % (Auto) 0.300 Neut % (Auto) 67.4 Lymph % (Auto) 24.5 [place] % (Auto) 6.9 Eos % (Auto) 0.5 Baso % (Auto) 0.4 Absolute Neuts (auto) 8.4 H Absolute Lymphs (auto) 3.06 Nucleated RBC % 0 Sodium 137 Potassium 3.0 L Chloride 104 Carbon Dioxide 22.0 Anion Gap 11 BUN 14 Creatinine 1.08 Estim Creat Clear Calc 106.08 Est GFR (MDRD) Af Amer 105 Est GFR (MDRD) Non-Af 87 BUN/Creatinine Ratio 13.0 Glucose 111 H Calcium 10.1 Total Bilirubin 0.40 AST 17 ALT 34 Alkaline Phosphatase 81 Total Protein 9.1 H Albumin 4.7 Globulin 4.4 H Albumin/Globulin Ratio 1.1 Lipase 63 L Radiography Diagnostic Testing: Radiology Impression Abdomen/Pelvis CT 09/19/20 11:05 IMPRESSION: Normal enhanced CT of the abdomen and pelvis. Electronically Signed: Fantasma Beard MD at 13:06 EDT Tel , Service support , Chest X-Ray 09/19/20 11:05 IMPRESSION: Normal x-ray examination of the chest. Electronically Signed: Fantasma Beard MD at 12:45 EDT Tel , Service support , Discharge Plan Triage Chief Complaint: Abd Pain ED Provider: Agus Ruby Dx/Rx/DC Orders Clinical Impression: Acute gastritis without bleeding Instructions: ED PEPTIC ULCER vs GASTRITIS Prescriptions: New sucralfate [Carafate] 1 gram tablet 1 g PO TID Qty: 21 RF: 0 Continued ondansetron HCl 4 MG tablet 4 mg PO PRN PRN (Reason: Nausea) RF: 0 amoxicillin 875 mg tablet 875 mg PO BID RF: 0 dexamethasone 0.75 mg tablet 0.75 mg PO TID RF: 0 omeprazole 40 MG capsule,delayed release(DR/EC) 40 mg PO DAILY Qty: 30 RF: 3 Discontinued ibuprofen 600 mg tablet 600 mg PO PRN PRN (Reason: Pain) RF: 0 Primary Care Provider: Lizett Chavez Referrals: Lizett Chavez MD [Primary Care Provider] - 3-5 Days if not improving Disposition Disposition: Home, self care
[2020-09-19] MEDS: Metoclopramide 10 MG/2 ML Vial IV (11:18)
[2020-09-19] MEDS: 0.9% Normal Saline 1,000 ML 1000 ML IV (11:18)
[2020-09-19] MEDS: Morphine 4 MG/ML Syringe IV ×2 (11:18→12:25)
[2020-09-19 11:28] LABS: Absolute Lymphocyte Count 3.06 X10^3/uL (0.83-4.51); Absolute Neutrophil Count 8.4 X10^3/uL (2.0-7.7); Basophil# 0.05 X10^3/uL; Basophil% 0.4 % (0-1); Eosinophil# 0.06 X10^3/uL; Eosinophils% 0.5 % (0-5); Hematocrit 44.6 % (40-54); Hemoglobin 15.1 g/dL (13.0-16.5); Lymphocyte # 3.06 X10^3/ul (0.83-4.51); Lymphocyte % 24.5 % (19-41); Mean Corp Hgb Conc 33.9 g/dL (32-36); Mean Corpuscular Hgb 30.7 pg (27.0-32.0); Mean Corpuscular Volume 90.7 fL (80-94); Monocyte# 0.86 X10^3/uL; Monocyte% 6.9 % (0-10); NRBC Flagged by Analyzer 0 % (0-5); Neutrophil # 8.41 X10^3/uL (2.7-7.7); Neutrophil % 67.4 % (47-70); Platelet Count 335 K/mm3 (150-450); RBC Distribution Width CV 12.4 % (11.6-14.6); RBC Distribution Width SD 41.1 fl (35.1-43.9); Red Blood Count 4.92 M/mm3 (4.6-6.2); White Blood Count 12.5 K/mm3 (4.4-11.0)
[2020-09-19 11:39] LABS: ALB/GLOB Ratio 1.1 RATIO (0.9-2.4); AST(SGOT) 17 U/L (15-37); Alanine Aminotransfer ALT/SGPT 34 U/L (16-61); Albumin, Serum 4.7 g/dL (3.2-5.0); Alkaline Phosphatase 81 U/L (45-117); Anion Gap 11 (5-15); BUN 14 mg/dL (7-18); Calcium,Total 10.1 mg/dL (8.5-10.1); Chloride 104 mmol/L (98-107); Creatinine, Serum 1.08 mg/dL (0.70-1.30); EST Glomerular Filtration Rate 87 mL/min (>60); Est Glom Filt Rate - Afr Amer 105 mL/min (>60); Estimated Creatinine Clearance 106.08 ml/min; Globulin 4.4 g/dL (2.2-4.2); Glucose 111 mg/dL (74-106); Lipase 63 U/L (73-393); Protein, Total 9.1 g/dL (6.4-8.2); Sodium Level 137 mmol/L (136-145)
--- NOTE | 2020-09-19 12:01 | ED.RN ---
DR JACKSON AWARE PT IS MOANING. NO NEW ORDERS AT THIS TIME.
--- NOTE | 2020-09-19 12:24 | ED.RN ---
MOTHER CALLED SPOKE WITH BOBBY BALTAZAR RN AND STATES THAT SHE WILL BE FILLING MALPRACTICING AGAINST THIS DR. JACKSON AND THIS HOSPITAL. MOTHER DEMANDING RN'S LAST NAME. MEDICATION ADMINISTRATION DELAY D/T PT BEING IN IMAGING.
--- NOTE | 2020-09-19 12:33 | ED.RN ---
rn to bedside to administer medications pt refuses d/t the medication being PO & he still has nausea. RN informed dr thompson at this time and asked for funmilayo. dr thompson to place order at this time. rn will continue to monitor patient.
--- NOTE | 2020-09-19 12:35 | ED.RN ---
s/o informed rn that whoever took pt to imagining made him get up even though he was in pain and told him to hurry up because they had more patients to see. rn apologized. s/o left at this time and states will be returning.
--- NOTE | 2020-09-19 12:38 | ED.RN ---
rn into bed, pt is sleeping very comfortably. rn will return at a later time
[2020-09-19 12:51] VITALS: BP 144/78; PULSE 50; RESP 14; O2SAT 100
[2020-09-19] MEDS: Ondansetron 4 MG/2 ML Vial IV (12:51)
--- NOTE | 2020-09-19 12:52 | ED.RN ---
[employer] AWARE OF ISSUES WITH PT AND FAMILY MEMBERS.
--- NOTE | 2020-09-19 12:54 | ED.RN ---
rn and dr thompson at bedside. dr thompson giving pt update on results of labwork and imaging. still waiting on CT results. dr thompson also educating patient on gi distress and medication. pt is agreeable. pt also states pain has improved.
--- NOTE | 2020-09-19 13:04 | ED.RN ---
S/O ALSO ACCUSED STAFF EARLIER OF NOT CARING FOR THE PT BECAUSE THEY ARE A MIXED COUPLE.
--- NOTE | 2020-09-19 13:24 | ED.RN ---
rn at bedside with oncoming RN to give bedside pt report. this rn update s/o who just returned about the update dr thompson had given. s/o agreeable that she doesn't want pt to get anymore narcotics now that his pain is under control.
--- NOTE | 2020-09-19 13:24 | ED.RN ---
pt states he has anxiety thinking about taking the GI cocktail. This RN gave pt the GI cocktail and told pt when he is ready that he can take the medication.
[2020-09-19] MEDS: Mag Hydrox/Al Hydrox/Simeth 30 ML UDC PO (13:30)
[2020-09-19] MEDS: Sucralfate 1 GM Tablet PO (14:40)
[2020-09-19 14:44] VITALS: BP 124/71; PULSE 68; RESP 12; O2SAT 99
== END 2020-09-19 14:45 | disposition home or self-care (01) ==
PROVIDERS: Emergency Provider Emergency Medicine; PCP Internal Medicine
DX: K29.00 Acute gastritis without bleeding (principal); Z87.891 Personal history of nicotine dependence; Z79.899 Other long term (current) drug therapy
CPT/HCPCS: 71045; 74177; 80053; 83690; 85025; 96365; 96375; 96376; 99284; Q9967; A4216; J2405; J3490

== ENCOUNTER 2020-10-10 06:48 | Emergency (ER) | payer MEDICAID, SELFPAY ==
[2020-10-10 06:49] VITALS: BP 138/92; PULSE 68; RESP 15; TEMP 36.1; O2SAT 100; BMI 33.5
--- NOTE | 2020-10-10 07:14 | ED.VIS.GI ---
HPI HPI - GI History of Present Illness Chief Complaint: Abd Pain Informant: patient Abdominal Pain/Flank Pain Onset: Today Context: Sudden Onset Timing: Continuous Quality: Sharp Location: Epigastric Current Severity: Severe Maximum Severity: Severe Worsened by: Nothing Relieved by: Nothing Nausea/Vomiting/Emesis GI Symptom: Positive for Nausea; Negative for Vomiting Diarrhea/Melena/Hematochezia GI Symptom: Positive for Diarrhea; Negative for Melena and Hematochezia Associated Symptoms Associated Symptoms: Negative for Dysuria and Hematuria Narrative Narrative: Patient presents with epigastric abdominal pain that began this morning approximately 2-1/2 hours prior to arrival. Patient states he has a history of gastritis and this feels similar to prior episodes. Patient states the pain is over the epigastric area. Patient denies any radiation of the pain. Patient admits to nausea but denies any vomiting. Patient admits to diarrhea but denies any melena or hematochezia. Patient describes his pain as sharp. Patient states nothing makes it better nothing makes it worse. Patient denies any dysuria or hematuria. PFSH PFSH Medical History Abdominal pain No significant medical problems Home Medications omeprazole 40 mg PO DAILY #30 capsule.dr 09/19/20 [Rx Last Taken Unknown] sucralfate [Carafate] 1 g PO TID #21 tab 09/19/20 [Rx Last Taken Unknown] Allergy/AdvReac Type Severity Reaction Status Date / Time ibuprofen [From Motrin] AdvReac Upset Verified 10/10/20 06:52 Stomach Tegaderm IV Guard AdvReac Rash Uncoded 10/10/20 09:11 Family History (Updated 07/06/20 @ 13:50 by Yesica Franz) Mother Asthma Surgical History History of appendectomy Social History (Updated 10/10/20 @ 07:[address] Devante Roberson DO) Smoking Status: Former smoker alcohol intake: never substance use type: marijuana ROS ROS ED Constitutional Constitutional ED: Denies chills or fever(s) Eyes Eyes: Denies blurry vision or change in vision ENT ENT ED: Denies rhinorrhea or sore throat Cardiovascular Cardiovascular: Denies chest pain or palpitations Respiratory/Chest Respiratory/Chest: Denies cough or dyspnea Gastrointestinal Gastrointestinal: Reports abdominal pain, diarrhea and nausea; Denies vomiting Genitourinary Genitourinary ED: Denies dysuria or hematuria Musculoskeletal Musculoskeletal: Denies back pain or neck pain Integumentary Denies abscess or rash Neurologic Neurologic: Denies headache(s) or weakness Allergic/Immunologic Allergic/Immunologic ED: Denies mouth swelling or urticaria EXAM Physical Exam Const Vital Signs: 10/10/20 06:49 10/10/20 09:10 Temperature 97.0 F L Temperature Source Temporal Pulse Rate 68 74 Respiratory Rate 15 15 Blood Pressure 138/92 H 153/85 H Blood Pressure Mean 107 107 Pulse Ox 100 Oxygen Delivery Method Room Air Positive well nourished, well developed and obese General Appearance ED: well developed Nutritional Appearance: obese HEENT Reports moist mucous membranes Neck supple and no JVD Resp normal respiratory effort and clear to auscultation bilaterally Cardio regular rate, regular rhythm and no murmurs GI non-distended Auscultation: normoactive bowel sounds Palpation: soft and tender epigastric; Negative for guarding or rebound tenderness present Neuro CN's II-XII intact bilaterally, moves all extremities and no sensory deficits noted Sensorium / Orientation: alert, oriented to person, oriented to place and oriented to time Psych mental status grossly normal MDM MDM MDM Narrative Medical decision making narrative: Patient was given IV fluids, Zofran, and morphine. Patient was then given a GI cocktail. CBC and comprehensive metabolic profile were within normal limits. Lipase was normal. Patient refused to provide urine specimen. Patient was feeling better on reevaluation. Patient was instructed to continue his omeprazole and Carafate. Patient was instructed to follow-up with his primary care physician in 3 to 5 days. Patient understood and was agreeable with the plan. All questions were answered. Lab Data Labs: Laboratory Results - last 24 hr 10/10/20 10/10/20 07:35 07:35 WBC 12.7 H RBC 4.82 Hgb 14.9 Hct 44.5 MCV 92.3 MCH 30.9 MCHC 33.5 RDW Std Deviation 42.6 RDW Coeff of Tanya 12.5 Plt Count 324 MPV 10.0 Immature Gran % (Auto) 0.300 Neut % (Auto) 77.2 H Lymph % (Auto) 15.4 L [place] % (Auto) 5.6 Eos % (Auto) 1.0 Baso % (Auto) 0.5 Absolute Neuts (auto) 9.8 H Absolute Lymphs (auto) 1.96 Nucleated RBC % 0 Sodium 140 Potassium 3.7 Chloride 105 Carbon Dioxide 26.0 Anion Gap 9 BUN 8 Creatinine 1.09 Estim Creat Clear Calc 101.80 Est GFR (MDRD) Af Amer 104 Est GFR (MDRD) Non-Af 86 BUN/Creatinine Ratio 7.3 L Glucose 105 Calcium 9.6 Total Bilirubin 0.30 AST 24 ALT 33 Alkaline Phosphatase 82 Total Protein 8.4 H Albumin 4.2 Globulin 4.2 Albumin/Globulin Ratio 1.0 Lipase 77 Discharge Plan Triage Chief Complaint: Abd Pain ED Provider: Devante Roberson Dx/Rx/DC Orders Clinical Impression: Gastritis Instructions: ED Gastritis (Adult) Prescriptions: No Action sucralfate [Carafate] 1 gram tablet 1 g PO TID Qty: 21 RF: 0 omeprazole 40 MG capsule,delayed release(DR/EC) 40 mg PO DAILY Qty: 30 RF: 3 Primary Care Provider: Lizett Chavez Referrals: Lizett Chavez MD [Primary Care Provider] - 3-5 Days Disposition Disposition: Home, self care
[2020-10-10] MEDS: Ondansetron 4 MG/2 ML Vial IV (07:31)
[2020-10-10] MEDS: Morphine 4 MG/ML Syringe IV (07:31)
[2020-10-10] MEDS: 0.9% Normal Saline 1,000 ML 1000 ML IV (07:31)
--- NOTE | 2020-10-10 07:39 | ED.RN ---
Pt's s/o states to this RN I'm very upset. Why do you need a urine sample on him? (the pt). She went on to explain that she has had numerous family members in hospitals and no one has ever ordered a urine sample. I explained that it was a urinalysis and was a standard order for abdominal pain work up but told her I would have Dr. Roberson talk with her. Dr. Roberson to room and s/o states we know its not a urine infection. we are not here for a diagnostic work up; we are just here to get ahead of things. Once left the room she states to the pt we are never coming here again.
[2020-10-10 07:50] LABS: Absolute Lymphocyte Count 1.96 X10^3/uL (0.83-4.51); Absolute Neutrophil Count 9.8 X10^3/uL (2.0-7.7); Basophil# 0.06 X10^3/uL; Basophil% 0.5 % (0-1); Eosinophil# 0.13 X10^3/uL; Hematocrit 44.5 % (40-54); Hemoglobin 14.9 g/dL (13.0-16.5); Lymphocyte # 1.96 X10^3/ul (0.83-4.51); Lymphocyte % 15.4 % (19-41); Mean Corp Hgb Conc 33.5 g/dL (32-36); Mean Corpuscular Hgb 30.9 pg (27.0-32.0); Mean Corpuscular Volume 92.3 fL (80-94); Monocyte# 0.71 X10^3/uL; Monocyte% 5.6 % (0-10); NRBC Flagged by Analyzer 0 % (0-5); Neutrophil # 9.84 X10^3/uL (2.7-7.7); Neutrophil % 77.2 % (47-70); Platelet Count 324 K/mm3 (150-450); RBC Distribution Width CV 12.5 % (11.6-14.6); RBC Distribution Width SD 42.6 fl (35.1-43.9); Red Blood Count 4.82 M/mm3 (4.6-6.2); White Blood Count 12.7 K/mm3 (4.4-11.0)
[2020-10-10] MEDS: Mag Hydrox/Al Hydrox/Simeth 30 ML UDC PO (07:52)
[2020-10-10 07:59] LABS: AST(SGOT) 24 U/L (15-37); Alanine Aminotransfer ALT/SGPT 33 U/L (16-61); Albumin, Serum 4.2 g/dL (3.2-5.0); Alkaline Phosphatase 82 U/L (45-117); Anion Gap 9 (5-15); BUN 8 mg/dL (7-18); BUN/Creat Ratio 7.3 RATIO (10-20); Calcium,Total 9.6 mg/dL (8.5-10.1); Chloride 105 mmol/L (98-107); Creatinine, Serum 1.09 mg/dL (0.70-1.30); EST Glomerular Filtration Rate 86 mL/min (>60); Est Glom Filt Rate - Afr Amer 104 mL/min (>60); Globulin 4.2 g/dL (2.2-4.2); Glucose 105 mg/dL (74-106); Lipase 77 U/L (73-393); Potassium 3.7 mmol/L (3.5-5.1); Protein, Total 8.4 g/dL (6.4-8.2); Sodium Level 140 mmol/L (136-145)
[2020-10-10 09:10] VITALS: BP 153/85; PULSE 74; RESP 15
--- NOTE | 2020-10-10 09:11 | ED.RN ---
Pt reports that he might me allergic to the IV tegaderm and states last time he was here he developed a rash after it was removed. Tegaderm removed and drain gauze with paper tape used to secure SL for the remainder of this visit. No redness or rash noted at this time. Awaiting MD dispo; this was explained to pt and his S/O.
[2020-10-10 09:40] VITALS: RESP 15
== END 2020-10-10 09:44 | disposition home or self-care (01) ==
PROVIDERS: Emergency Provider Emergency Medicine; PCP Internal Medicine
DX: K29.70 Gastritis, unspecified, without bleeding (principal); E66.9 Obesity, unspecified; Z87.891 Personal history of nicotine dependence
CPT/HCPCS: 80053; 83690; 85025; 96374; 96375; 99283; J7030; J2405

== ENCOUNTER → 2020-10-14 10:03 | Outpatient (CLI) | payer MEDICAID, SELFPAY ==
[2020-10-14 09:35] VITALS: BMI 32.5
[2020-10-14 12:47] LABS: Vitamin D,25 Hydroxy 15.3 ng/mL
[2020-10-14 12:54] LABS: Cholesterol 263 mg/dL (200); High Density Lipoprotein 51 mg/dL; T4 Free Direct 0.86 ng/dL (0.76-1.46); Thyroid Stim Hormone (TSH) 2.52 uIU/mL (0.358-3.74); Triglycerides 142 mg/dL; Very Low Density Lipoprotein 28 mg/dL (5-40)
== END ==
PROVIDERS: PCP Internal Medicine; Visit Provider Nurse Practitioner Family
DX: E55.9 Vitamin D deficiency, unspecified (principal); E78.5 Hyperlipidemia, unspecified; E03.9 Hypothyroidism, unspecified
CPT/HCPCS: 36415; 80061; 82306; 84439; 84443

== ENCOUNTER 2020-11-28 05:33 | Emergency (ER) | payer MEDICAID, SELFPAY ==
[2020-10-14 09:35] VITALS: BMI 32.5
[2020-11-28 05:33] VITALS: BP 120/74; PULSE 60; RESP 16; TEMP 36; O2SAT 99; BMI 31.9
--- NOTE | 2020-11-28 05:44 | ED.VIS.GI ---
HPI HPI - GI History of Present Illness Chief Complaint: Abd Pain Informant: patient and spouse/S.O. Abdominal Pain/Flank Pain Onset: Today and Hours Location: Epigastric Current Severity: Mild Maximum Severity: Moderate Nausea/Vomiting/Emesis GI Symptom: Positive for Nausea and Vomiting Onset: Today Severity: Mild Diarrhea/Melena/Hematochezia GI Symptom: Negative for Diarrhea, Melena and Hematochezia Associated Symptoms Associated Symptoms: Negative for Dysuria, Frequency and Hematuria Narrative Narrative: 25-year-old male history of gastritis. Diagnosed by upper endoscopy. History of similar episodes. He awoke with epigastric abdominal pain this morning with nausea vomiting. No hematemesis no melena. He has had a prior appendectomy. He has been worked up for this before has had negative labs and negative CAT scans. He denies any recent fever. Prior similar symptoms: Yes Recent Illness/Hospitalization: No PFSH PFSH Medical History Abdominal pain Nausea and vomiting No significant medical problems Subclinical hypothyroidism Vitamin D deficiency Home Medications ergocalciferol (vitamin D2) 1,250 mcg (50,000 unit) capsule 50,000 unit PO QWEEK #8 cap 10/14/20 [Rx Last Taken Unknown] omeprazole 40 mg capsule,delayed release 40 mg PO DAILY #90 cap 10/14/20 [Rx Last Taken Unknown] ondansetron 4 mg disintegrating tablet 4 mg PO Q8H PRN #30 tab 10/14/20 [Rx Last Taken Unknown] Allergy/AdvReac Type Severity Reaction Status Date / Time adhesive tape Allergy Rash Verified 11/28/20 06:13 ibuprofen [From Motrin] AdvReac Upset Verified 11/28/20 05:37 Stomach Tegaderm IV Guard AdvReac Rash Uncoded 11/28/20 05:37 Family History Mother Asthma Surgical History History of appendectomy Social History Smoking Status: Former smoker alcohol intake: never substance use type: marijuana ROS ROS ED ROS Narrative No recent illness. Started having nausea and vomiting and epigastric abdominal pain tonight. Review of Systems ROS Unobtainable: Denies due to encephalopathy Constitutional Constitutional ED: Denies chills or fever(s) ENT ENT ED: Denies ear pain or sore throat Cardiovascular Cardiovascular: Denies chest pain Respiratory/Chest Respiratory/Chest: Denies cough or dyspnea Gastrointestinal Gastrointestinal: Reports abdominal pain, nausea and vomiting; Denies constipation, diarrhea or melena Genitourinary Genitourinary ED: Denies dysuria or hematuria Musculoskeletal Musculoskeletal: Denies myalgias Integumentary Denies rash Neurologic Neurologic: Denies headache(s) Psychiatric Psychiatric: Denies depression Endocrine Endocrinology: Denies polyuria Hematologic/Lymphatic Hematologic/Lymphatic: Denies easy bruising Allergic/Immunologic Allergic/Immunologic ED: Denies urticaria EXAM Physical Exam Narrative Exam Narrative: 25-year-old male actively nauseated complaining of epigastric pain. Vital signs are stable he is afebrile he does not look septic or toxic. Lungs are clear. Heart regular rhythm. Abdomen is soft with epigastric discomfort. No peritoneal signs. Right upper and right lower quadrants are unremarkable. He is nondistended. No signs of obstruction. Extremities and neurologic exam unremarkable. Const Vital Signs: 11/28/20 05:33 Temperature 96.8 F L Temperature Source Temporal Pulse Rate 60 Respiratory Rate 16 Blood Pressure 120/74 Blood Pressure Mean 89 Pulse Ox 99 Oxygen Delivery Method Room Air Positive well nourished and well developed General Appearance ED: well developed HEENT Reports moist mucous membranes normocephalic and atraumatic; Negative for trauma or tenderness Eyes PERRL and EOMs intact bilaterally Neck no lymphadenopathy, supple and no JVD General: Negative for tenderness Resp normal respiratory effort and clear to auscultation bilaterally Cardio regular rate, regular rhythm, S1 normal heart sound, S2 normal heart sound and no murmurs GI non-distended and no masses; Negative for non-tender GI Narrative: Epigastric tenderness. No peritoneal signs. No signs of obstruction. Inspection: Negative for abdominal distention Auscultation: normoactive bowel sounds; Negative for hyperactive bowel sounds or hypoactive bowel sounds Palpation: soft and tender; Negative for guarding, rigid or rebound tenderness present Back/Spine no CVA tenderness Extremity full ROM General Extremety ED: Negative for edema or tenderness General Extremity: Negative for edema Neuro CN's II-XII intact bilaterally and moves all extremities Sensorium / Orientation: alert, oriented to person, oriented to place and oriented to time; Negative for orientation impaired Motor Exam: strength 5/5 throughout Psych mental status grossly normal and thought process normal Skin no wounds General Skin Exam: Negative for jaundice Lesions: no lesions Rashes: no rashes MDM MDM MDM Narrative Medical decision making narrative: 25-year-old male presents epigastric abdominal pain with a history of gastritis. Appears to be a similar episode. He has had prior work-ups with lab work, CAT scans upper and lower endoscopy. His exam is benign other than mild epigastric tenderness. He will be treated with IV fluids, Zofran, Protonix and a GI cocktail and reassess. I do not think he needs lab work or imaging. Repeat exam at 6:40 AM patient looks clinically much better and feeling better. He is no longer vomiting. His pain is resolved. On repeat abdominal exam his abdomen is benign without peritoneal signs. He and his significant other feel comfortable with him being discharged to home. He has home medications for both nausea and gastritis. Discharge Plan Triage Chief Complaint: Abd Pain ED Provider: Shashi Conde Dx/Rx/DC Orders Clinical Impression: Gastritis Instructions: ED Gastritis (Adult) Prescriptions: No Action omeprazole 40 mg capsule,delayed release(DR/EC) 40 mg PO DAILY Qty: 90 RF: 1 ondansetron 4 mg tablet,disintegrating 4 mg PO Q8H PRN (Reason: nausea and vomiting) Qty: 30 RF: 1 ergocalciferol (vitamin D2) 1,250 mcg (50,000 unit) capsule 50,000 unit PO QWEEK Qty: 8 RF: 0 Primary Care Provider: Lizett Chavez Referrals: Lizett Chavez MD [Primary Care Provider] - 3-5 Days if not improving Activity Restrictions/Additional Instructions: Zofran as needed for nausea. Continue your omeprazole for the gastritis. Return if worse such as increasing pain, fever, throwing up blood or passing black stools. Follow-up with your doctor as needed if not improving. Disposition Disposition: Home, Self Care
[2020-11-28] MEDS: 0.9% Normal Saline 1,000 ML 1000 ML IV (05:49)
[2020-11-28] MEDS: morphine 8 MG/ML Syringe IV (05:49)
[2020-11-28] MEDS: Ondansetron 4 MG/2 ML Vial IV (05:49)
[2020-11-28] MEDS: Mag Hydrox/Al Hydrox/Simeth 30 ML UDC PO (06:08)
[2020-11-28 06:40] VITALS: BP 114/71; PULSE 60; RESP 18; O2SAT 98
== END 2020-11-28 06:47 | disposition home or self-care (01) ==
PROVIDERS: Emergency Provider Emergency Medicine; PCP Internal Medicine
DX: K29.70 Gastritis, unspecified, without bleeding (principal); Z87.891 Personal history of nicotine dependence; Z79.899 Other long term (current) drug therapy
CPT/HCPCS: 96361; 96374; 96375; 99285; J7030; J2405; J3490

== ENCOUNTER 2021-03-12 23:14 | Emergency (ER) | payer BC, MEDICAID, SELFPAY ==
[2021-03-12 23:15] VITALS: BP 141/88; PULSE 70; RESP 20; TEMP 36.4; O2SAT 100; BMI 31.1
--- NOTE | 2021-03-12 23:31 | EDS_ITS ---
HPI HPI - GI History of Present Illness Chief Complaint: Abd Pain Informant: patient and friend Abdominal Pain/Flank Pain Onset: Hours (1.5) Context: Gradual Onset Timing: Continuous Quality: Aching Location: Epigastric Current Severity: Severe Maximum Severity: Severe Worsened by: Nothing Relieved by: Nothing Nausea/Vomiting/Emesis GI Symptom: Positive for Nausea; Negative for Vomiting Diarrhea/Melena/Hematochezia GI Symptom: Negative for Diarrhea, Melena and Hematochezia Narrative Narrative: Patient presents in agony of upper abdominal pain epigastric and left upper quadrant. He does not provide any of the history and his significant other provide all of the history, he does not refute any of it. She states he has these episodes frequently, his stomach lining is shift and he has severe gastritis, causing recurrent symptoms they usually resolve after Pepto or a GI cocktail but he is unable to drink anything because he will immediately vomit so tonight he has tried nothing for this, but come to the ER expecting IV treatments. He has had scopes in the past, and he takes medication for this. [facility] Medical History Abdominal pain Nausea and vomiting No significant medical problems Subclinical hypothyroidism Vitamin D deficiency Home Medications ergocalciferol (vitamin D2) 1,250 mcg (50,000 unit) capsule 50,000 unit PO QWEEK #8 cap 10/14/20 [Rx Last Taken Unknown] omeprazole 40 mg capsule,delayed release 40 mg PO DAILY #90 cap 10/14/20 [Rx Last Taken Unknown] ondansetron 4 mg disintegrating tablet 4 mg PO Q8H PRN #30 tab 10/14/20 [Rx Last Taken Unknown] Allergy/AdvReac Type Severity Reaction Status Date / Time adhesive tape Allergy Rash Verified 03/12/21 23:18 ibuprofen [From Motrin] AdvReac Upset Verified 03/12/21 23:18 Stomach Tegaderm IV Guard AdvReac Rash Uncoded 03/12/21 23:18 Family History Mother Asthma Surgical History History of appendectomy Social History Smoking Status: Former smoker alcohol intake: never substance use type: marijuana ROS ROS ED Review of Systems ROS Unobtainable: other Details: limited due to acuity/discomfort/uncooperative Gastrointestinal Gastrointestinal: Denies diarrhea EXAM Physical Exam Const Vital Signs: 03/12/21 23:15 Temperature 97.6 F L Temperature Source Temporal Pulse Rate 70 Respiratory Rate 20 H Blood Pressure 141/88 H Blood Pressure Mean 105 Pulse Ox 100 Oxygen Delivery Method Room Air Positive well nourished and well developed Constitutional Narrative: Crying in painful distress General Appearance ED: well developed HEENT Reports moist mucous membranes normocephalic and atraumatic Eyes PERRL and EOMs intact bilaterally Neck full ROM and supple Resp normal respiratory effort and clear to auscultation bilaterally Cardio regular rate, regular rhythm and no murmurs GI non-distended GI Narrative: Tender epigastrium and left upper quadrant otherwise benign exam. Some voluntary guarding no rebound tenderness. Auscultation: normoactive bowel sounds Palpation: soft Back/Spine no CVA tenderness General Back: other FROM Extremity normal to inspection General Extremety ED: Negative for edema, pulses abnormal or tenderness General Extremity: Negative for edema or pulses abnormal Neuro oriented x3, CN's II-XII intact bilaterally and no sensory deficits noted Sensorium / Orientation: awake and alert Motor Exam: strength 5/5 throughout Skin no rashes or lesions noted and no wounds MDM MDM MDM Narrative Medical decision making narrative: Patient was given Zofran 8 mg ODT, followed by GI cocktail. His symptoms resolved and he feels much better and wants to go home. He has a PPI to take daily. Discharge Plan Triage Chief Complaint: Abd Pain ED Provider: Agus Ruby Dx/Rx/DC Orders Clinical Impression: Acute upper abdominal pain, Hx of gastritis Instructions: ED Gastritis (Adult) Prescriptions: No Action omeprazole 40 mg capsule,delayed release(DR/EC) 40 mg PO DAILY Qty: 90 RF: 1 ondansetron 4 mg tablet,disintegrating 4 mg PO Q8H PRN (Reason: nausea and vomiting) Qty: 30 RF: 1 ergocalciferol (vitamin D2) 1,250 mcg (50,000 unit) capsule 50,000 unit PO QWEEK Qty: 8 RF: 0 Primary Care Provider: Lizett Chavez Referrals: Lizett Chavez MD [Primary Care Provider] - 3-5 Days if not improving Disposition Disposition: Home, Self Care
[2021-03-12] MEDS: Mag Hydrox/Al Hydrox/Simeth 30 ML UDC PO (23:52)
[2021-03-12] MEDS: Ondansetron ODT 4 MG Tablet 8 MG PO (23:54)
[2021-03-13 01:03] VITALS: BP 125/63; PULSE 71; RESP 15; O2SAT 98
== END 2021-03-13 01:04 | disposition home or self-care (01) ==
PROVIDERS: Emergency Provider Emergency Medicine; PCP Internal Medicine
DX: R10.12 Left upper quadrant pain (principal); F12.10 Cannabis abuse, uncomplicated; Z87.19 Personal history of other diseases of the digestive system; Z87.891 Personal history of nicotine dependence
CPT/HCPCS: 99285; A4216

== ENCOUNTER 2021-03-28 03:01 | Emergency (ER) | payer BC, MEDICAID, SELFPAY ==
[2021-03-28 03:02] VITALS: BP 148/88; PULSE 70; RESP 18; RESP 20; TEMP 36.4; O2SAT 100; BMI 32.5
--- NOTE | 2021-03-28 03:10 | ED.VIS.GI ---
HPI HPI - GI History of Present Illness Chief Complaint: Abd Pain Detail of Chief Complaint: Abdominal pain that started around 1 AM Informant: patient Abdominal Pain/Flank Pain Location: Epigastric Current Severity: Severe Nausea/Vomiting/Emesis GI Symptom: Positive for Nausea and Vomiting Narrative Narrative: Patient presents to the emergency department with his girlfriend with complaint of severe abdominal pain. Light of the history currently comes from the girlfriend this patient is retching and vomiting actively on arrival. Patient apparently has history of chronic abdominal issues and sees a geological specialist. He has had gastritis type issues. Patient has had similar episodes of abdominal pain and vomiting multiple times in the past. He has had some diarrhea. He denies fevers. He has had no urinary symptoms. He denies alcohol use or illicit drug use. Patient denies blood in stool or black tarry stool. PFSH PFS Medical History Abdominal pain Nausea and vomiting No significant medical problems Subclinical hypothyroidism Vitamin D deficiency Home Medications ergocalciferol (vitamin D2) 1,250 mcg (50,000 unit) capsule 50,000 unit PO QWEEK #8 cap 10/14/20 [Rx Last Taken Unknown] omeprazole 40 mg capsule,delayed release 40 mg PO DAILY #90 cap 10/14/20 [Rx Last Taken Unknown] ondansetron 4 mg disintegrating tablet 4 mg PO Q8H PRN #30 tab 10/14/20 [Rx Last Taken Unknown] Allergy/AdvReac Type Severity Reaction Status Date / Time adhesive tape Allergy Rash Verified 03/12/21 23:18 ibuprofen [From Motrin] AdvReac Upset Verified 03/12/21 23:18 Stomach Tegaderm IV Guard AdvReac Rash Uncoded 03/12/21 23:18 Family History Mother Asthma Surgical History History of appendectomy Social History Smoking Status: Former smoker alcohol intake: never substance use type: marijuana ROS ROS ED Constitutional Constitutional ED: Reports systems reviewed and no addt'l complaints, except as documented; Denies body ache(s), change in weight or chills Eyes Eyes: Denies acute decrease in peripheral vision, change in vision, double vision or loss of vision ENT ENT ED: Reports none; Denies ear pain, lip swelling, loss taste/smell, neck pain, otalgia or sore throat Cardiovascular Cardiovascular: Reports none; Denies abdominal pain, chest pain with activity, leg edema, lightheadedness, palpitations, rapid heart rate or syncope Respiratory/Chest Respiratory/Chest: Reports none; Denies change in mental status, dry cough, dyspnea, hemoptysis, shortness of breath at rest or shortness of breath with exertion Gastrointestinal Gastrointestinal: Reports none, abdominal pain, diarrhea, nausea and vomiting; Denies change in stool character, hematemesis, hematochezia, melena or rectal bleeding Genitourinary Genitourinary ED: Reports none; Denies abdominal discomfort, anuria, dysuria, genital pain or polyuria Musculoskeletal Musculoskeletal: Reports none; Denies arthralgias, back pain, difficulty walking, extremity pain, muscle weakness or myalgias Integumentary Reports none; Denies abscess or rash Neurologic Neurologic: Reports none; Denies abnormal gait, confusion, focal weakness, frequent falls, headache(s), loss of vision, numbness, paresthesias, radicular pain, vertigo or weakness Psychiatric Psychiatric: Reports systems reviewed and no addt'l complaints, except as documented and none; Denies behavioral changes, confusion, difficulty concentrating, hallucinations, suicidal ideation, tactile hallucinations or visual hallucinations Endocrine Endocrinology: Denies none, cold intolerance, excessive sweating, fatigue or heat intolerance Hematologic/Lymphatic Hematologic/Lymphatic: Reports none; Denies anemia, easy bleeding or easy bruising Allergic/Immunologic Allergic/Immunologic ED: Denies as per HPI, none, lip swelling, mouth swelling, throat swelling, tongue swelling or hives EXAM Physical Exam Const Vital Signs: 03/28/21 03:02 Temperature 97.5 F L Temperature Source Temporal Pulse Rate 70 Respiratory Rate 20 H Blood Pressure 148/88 H Blood Pressure Mean 108 Pulse Ox 100 Oxygen Delivery Method Room Air Positive well nourished and well developed General Appearance ED: well developed and NAD HEENT Reports TM's clear and moist mucous membranes normocephalic and atraumatic; Negative for trauma or tenderness Tympanic Membrane ED: Yes TM's clear Eyes PERRL and EOMs intact bilaterally General Eye ED: Negative for pale conjunctiva or scleral icterus Neck no lymphadenopathy, supple and no JVD General: Negative for tenderness Chest Wall inspection of chest normal and palpation of chest normal Chest: Negative for tenderness Resp normal respiratory effort and clear to auscultation bilaterally Effort and Inspection: Negative for respiratory distress or pain with movement Auscultation: Negative for rhonchi, wheezes or diminished lung sounds Cardio regular rate, regular rhythm, S1 normal heart sound, S2 normal heart sound and no murmurs Peripheral Pulses: pulses 2+ throughout GI normal to inspection, nondistended, normoactive bowel sounds, soft to palpation, non-tender, non-distended and no masses GI Narrative: Tenderness palpation over the epigastric region with some guarding. There is no rebound, rigidity, or peritoneal signs. Palpation: tender Back/Spine no CVA tenderness and no thoracic nor lumbar tenderness Extremity normal to inspection General Extremety ED: Negative for edema General Extremity: Negative for edema Neuro oriented x3, CN's II-XII intact bilaterally, no sensory deficits noted and gait normal Sensorium / Orientation: awake, alert, oriented to person, oriented to place and oriented to time Motor Exam: strength 5/5 throughout and strength abnormal Psych mental status grossly normal Skin no rashes or lesions noted and no wounds MDM MDM MDM Narrative Medical decision making narrative: IV line established on arrival. Patient was medicated morphine and Zofran and then given a GI cocktail. He continued to complain of nausea and was given Reglan 10 mg IV. Patient continued to complain of nausea and abdominal pain was given 4 more milligrams of morphine and 4 mg of Zofran. We had a discussion at this point about admission for intractable nausea vomiting and abdominal pain. Initially he agreed to admission and was seen by hospitalist. However after being seen by hospitalist he decided that he was feeling improved and did not want to be admitted. At this point patient will be discharged to home with referral to GI for follow-up. Patient has Zofran at home for nausea and vomiting. Patient advised to return if worsening pain, fever, persistent vomiting, or condition should worsen anyway. Lab Data Attestation: I reviewed the patient's lab results. Labs: Laboratory Results - last 24 hr 03/28/21 03/28/21 03/28/21 03:15 03:15 03:15 WBC 14.4 H RBC 4.61 Hgb 14.1 Hct 42.1 MCV 91.3 MCH 30.6 MCHC 33.5 RDW Std Deviation 41.3 RDW Coeff of Tanya 12.4 Plt Count 318 MPV 9.9 Immature Gran % (Auto) 0.300 Neut % (Auto) 82.3 H Lymph % (Auto) 11.3 L [place] % (Auto) 5.0 Eos % (Auto) 0.7 Baso % (Auto) 0.4 Absolute Neuts (auto) 11.8 H Absolute Lymphs (auto) 1.63 Nucleated RBC % 0 Sodium 137 Potassium 3.9 Chloride 107 Carbon Dioxide 25.0 Anion Gap 5 BUN 8 Creatinine 1.12 Estim Creat Clear Calc 95.85 Est GFR (MDRD) Af Amer 101 Est GFR (MDRD) Non-Af 83 BUN/Creatinine Ratio 7.1 L Glucose 100 Lactic Acid 1.6 Calcium 9.6 Total Bilirubin 0.40 AST 15 ALT 25 Alkaline Phosphatase 70 Total Protein 8.5 H Albumin 4.4 Globulin 4.1 Albumin/Globulin Ratio 1.1 Lipase 55 L Urine Color Urine Clarity Urine pH Ur Specific [place] Urine Protein Urine Glucose (UA) Urine Ketones Urine Occult Blood Urine Nitrite Urine Bilirubin Urine Urobilinogen Ur Leukocyte Esterase Urine RBC Urine WBC Ur Squamous Epith Cells Urine Bacteria Urine Mucus 03/28/21 04:26 WBC RBC Hgb Hct MCV MCH MCHC RDW Std Deviation RDW Coeff of Tanya Plt Count MPV Immature Gran % (Auto) Neut % (Auto) Lymph % (Auto) [place] % (Auto) Eos % (Auto) Baso % (Auto) Absolute Neuts (auto) Absolute Lymphs (auto) Nucleated RBC % Sodium Potassium Chloride Carbon Dioxide Anion Gap BUN Creatinine Estim Creat Clear Calc Est GFR (MDRD) Af Amer Est GFR (MDRD) Non-Af BUN/Creatinine Ratio Glucose Lactic Acid Calcium Total Bilirubin AST ALT Alkaline Phosphatase Total Protein Albumin Globulin Albumin/Globulin Ratio Lipase Urine Color Yellow Urine Clarity Clear Urine pH 8.0 Ur Specific [place] 1.015 Urine Protein 15 H Urine Glucose (UA) Normal Urine Ketones 150 A* Urine Occult Blood Negative Urine Nitrite Negative Urine Bilirubin Negative Urine Urobilinogen Normal Ur Leukocyte Esterase Negative Urine RBC 0 SEEN Urine WBC 0 SEEN Ur Squamous Epith Cells 0 SEEN Urine Bacteria 1+ Urine Mucus 3+ Radiography Diagnostic Testing: Clinical Impression(s) from Imaging Studies Abdomen/Pelvis CT 03/28/21 03:58 IMPRESSION: Normal unenhanced CT of the abdomen and pelvis. Electronically Signed: Zion Guillory at 4:38 EST Tel , Service support , Discharge Plan Triage Chief Complaint: Abd Pain ED Provider: Adelina Jefferson Dx/Rx/DC Orders Clinical Impression: Abdominal pain, Gastritis, Nausea and vomiting Instructions: Nausea Vomit Control, ED Gastritis (Adult), ED Abdominal Pain Unkn Cause Male... Prescriptions: No Action omeprazole 40 mg capsule,delayed release(DR/EC) 40 mg PO DAILY Qty: 90 RF: 1 ondansetron 4 mg tablet,disintegrating 4 mg PO Q8H PRN (Reason: nausea and vomiting) Qty: 30 RF: 1 ergocalciferol (vitamin D2) 1,250 mcg (50,000 unit) capsule 50,000 unit PO QWEEK Qty: 8 RF: 0 Primary Care Provider: Lizett Chavez Referrals: Lizett Chavez MD [Primary Care Provider] - Franco Marshall DO [STAFF PHYSICIAN] - 3-5 Days Disposition Disposition: Home, Self Care
[2021-03-28] MEDS: 0.9% Normal Saline 1,000 ML 1000 ML IV (03:17)
[2021-03-28] MEDS: Morphine 4 MG/ML Syringe IV ×2 (03:18→05:15)
[2021-03-28] MEDS: Ondansetron 4 MG/2 ML Vial IV ×2 (03:18→05:15)
[2021-03-28 03:24] LABS: Absolute Lymphocyte Count 1.63 X10^3/uL (0.83-4.51); Absolute Neutrophil Count 11.8 X10^3/uL (2.0-7.7); Basophil# 0.06 X10^3/uL; Basophil% 0.4 % (0-1); Eosinophils% 0.7 % (0-5); Hematocrit 42.1 % (40-54); Hemoglobin 14.1 g/dL (13.0-16.5); Lymphocyte # 1.63 X10^3/ul (0.83-4.51); Lymphocyte % 11.3 % (19-41); Mean Corp Hgb Conc 33.5 g/dL (32-36); Mean Corpuscular Hgb 30.6 pg (27.0-32.0); Mean Corpuscular Volume 91.3 fL (80-94); Mean Platelet Vol. 9.9 fl (6.2-12.0); Monocyte# 0.72 X10^3/uL; NRBC Flagged by Analyzer 0 % (0-5); Neutrophil # 11.83 X10^3/uL (2.7-7.7); Neutrophil % 82.3 % (47-70); Platelet Count 318 K/mm3 (150-450); RBC Distribution Width CV 12.4 % (11.6-14.6); RBC Distribution Width SD 41.3 fl (35.1-43.9); Red Blood Count 4.61 M/mm3 (4.6-6.2); White Blood Count 14.4 K/mm3 (4.4-11.0)
[2021-03-28] MEDS: Famotidine 200 MG/20 ML MDV 20 MG in 0.9% Normal Saline (Pres. free 8 ML 300 MG IV (03:29)
[2021-03-28 03:40] LABS: ALB/GLOB Ratio 1.1 RATIO (0.9-2.4); AST(SGOT) 15 U/L (15-37); Alanine Aminotransfer ALT/SGPT 25 U/L (16-61); Albumin, Serum 4.4 g/dL (3.2-5.0); Alkaline Phosphatase 70 U/L (45-117); Anion Gap 5 (5-15); BUN 8 mg/dL (7-18); BUN/Creat Ratio 7.1 RATIO (10-20); Calcium,Total 9.6 mg/dL (8.5-10.1); Chloride 107 mmol/L (98-107); Creatinine, Serum 1.12 mg/dL (0.70-1.30); EST Glomerular Filtration Rate 83 mL/min (>60); Est Glom Filt Rate - Afr Amer 101 mL/min (>60); Estimated Creatinine Clearance 95.85 ml/min; Globulin 4.1 g/dL (2.2-4.2); Glucose 100 mg/dL (74-106); Lipase 55 U/L (73-393); Potassium 3.9 mmol/L (3.5-5.1); Protein, Total 8.5 g/dL (6.4-8.2); Sodium Level 137 mmol/L (136-145)
[2021-03-28 03:46] LABS: Lactic Acid 1.6 mmol/L (0.4-1.9)
--- NOTE | 2021-03-28 03:58 | CT_ITS ---
STUDY: CT ABDOMEN AND PELVIS WITHOUT CONTRAST REASON FOR EXAM: Male, 25 years old. abdominal pain RADIATION DOSAGE (If Supplied By Facility): CTDIvol = ( 9.91 ) mGy, DLP = ( 524.84 ) mGycm TECHNIQUE: Transaxial images were obtained from the dome of the diaphragm to the symphysis pubis without oral contrast, and without intravenous contrast. Sagittal and coronal images were reconstructed. Individualized dose optimization techniques were used for this CT. COMPARISON: None. FINDINGS: The visualized lung bases are unremarkable. The visualized portions of the heart are within normal limits. Normal liver. Normal gallbladder and extrahepatic biliary system. Normal spleen. Normal pancreas. Normal bilateral adrenal glands. Normal right kidney. Normal left kidney. Normal visualized stomach. Normal small intestine. Normal colon. There are surgical clips in the region of the appendix consistent with a prior appendectomy. Normal abdominal aorta. Normal inferior vena cava. Normal retroperitoneum. Normal urinary bladder. Normal visualized prostate gland. Normal abdominal wall. Normal osseous structures. CT/Abdomen/Pelvis without Cont IMPRESSION: Normal unenhanced CT of the abdomen and pelvis. Electronically Signed: Zion Guillory DO at 4:38 EST Tel , Service support ,
[2021-03-28] MEDS: Metoclopramide 10 MG/2 ML Vial IV (04:02)
[2021-03-28 04:33] LABS: Red Blood Cells-Urine 0 SEEN /hpf (0-5); Squamous Epithelial Cells - UA 0 SEEN /hpf (0-5); White Blood Cells 0 SEEN /hpf (0-5)
[2021-03-28 04:36] LABS: Color, Urine Yellow (Yellow); Glucose, Dipstick Normal (Normal); Leukocyte Esterase-Dipstick Negative /ul (Negative); Nitrite-Dipstick Negative (Negative); Occult Blood-Urine Negative /ul (Negative); Protein-Dipstick 15 mg/dl (Negative); Specific Gravity, Urine 1.015 (1.002-1.030); Urine Bilirubin Dipstick Negative (Negative); Urine Clarity Clear (Clear); Urine Urobilinogen Normal (Normal)
[2021-03-28 04:38] LABS: Ketone-Dipstick 150 mg/dl (Negative)
[2021-03-28 04:43] LABS: Bacteria 1+ /hpf (None Seen); Mucous, Urine 3+ /hpf (<or=2+)
[2021-03-28] MEDS: Mag Hydrox/Al Hydrox/Simeth 30 ML UDC PO (04:43)
--- NOTE | 2021-03-28 05:24 | HP.PCM.HOS_ITS ---
HPI - General HPI Narrative ABRAHAM GUERRA, is a 25 M who presents [facility] Medical History Abdominal pain Nausea and vomiting No significant medical problems Subclinical hypothyroidism Vitamin D deficiency Home Medications ergocalciferol (vitamin D2) 1,250 mcg (50,000 unit) capsule 50,000 unit PO QWEEK #8 cap 10/14/20 [Rx Last Taken Unknown] omeprazole 40 mg capsule,delayed release 40 mg PO DAILY #90 cap 10/14/20 [Rx Last Taken Unknown] ondansetron 4 mg disintegrating tablet 4 mg PO Q8H PRN #30 tab 10/14/20 [Rx Last Taken Unknown] Allergy/AdvReac Type Severity Reaction Status Date / Time adhesive tape Allergy Rash Verified 03/12/21 23:18 ibuprofen [From Motrin] AdvReac Upset Verified 03/12/21 23:18 Stomach Tegaderm IV Guard AdvReac Rash Uncoded 03/12/21 23:18 Family History Mother Asthma Surgical History History of appendectomy Social History Smoking Status: Former smoker alcohol intake: never substance use type: marijuana Vital Signs Vital Signs Vital Signs: 03/28/21 03:02 Temperature 97.5 F L Temperature Source Temporal Pulse Rate 70 Respiratory Rate 20 H Blood Pressure 148/88 H Blood Pressure Mean 108 Pulse Ox 100 Oxygen Delivery Method Room Air Weight Weight: 97.1 kg Body Mass Index (BMI) 32.5 Results Lab / Micro Data Result Diagrams: 03/28/21 03:15 03/28/21 03:15 Labs: Laboratory Results - last 24 hr 03/28/21 03:15: WBC 14.4 H, RBC 4.61, Hgb 14.1, Hct 42.1, MCV 91.3, MCH 30.6, MCHC 33.5, RDW Std Deviation 41.3, RDW Coeff of Tanya 12.4, Plt Count 318, MPV 9.9, Immature Gran % (Auto) 0.300, Neut % (Auto) 82.3 H, Lymph % (Auto) 11.3 L, [place] % (Auto) 5.0, Eos % (Auto) 0.7, Baso % (Auto) 0.4, Absolute Neuts (auto) 11.8 H, Absolute Lymphs (auto) 1.63, Nucleated RBC % 0 03/28/21 03:15: Sodium 137, Potassium 3.9, Chloride 107, Carbon Dioxide 25.0, Anion Gap 5, BUN 8, Creatinine 1.12, Estim Creat Clear Calc 95.85, Est GFR (MDRD) Af Amer 101, Est GFR (MDRD) Non-Af 83, BUN/Creatinine Ratio 7.1 L, Glucose 100, Calcium 9.6, Total Bilirubin 0.40, AST 15, ALT 25, Alkaline Phosphatase 70, Total Protein 8.5 H, Albumin 4.4, Globulin 4.1, Albumin/Globulin Ratio 1.1, Lipase 55 L 03/28/21 03:15: Lactic Acid 1.6 03/28/21 04:26: Urine Color Yellow, Urine Clarity Clear, Urine pH 8.0, Ur Specific [place] 1.015, Urine Protein 15 H, Urine Glucose (UA) Normal, Urine Ketones 150 A*, Urine Occult Blood Negative, Urine Nitrite Negative, Urine Bilirubin Negative, Urine Urobilinogen Normal, Ur Leukocyte Esterase Negative, Urine RBC 0 SEEN, Urine WBC 0 SEEN, Ur Squamous Epith Cells 0 SEEN, Urine Bacteria 1+, Urine Mucus 3+ Radiology Impression Abdomen/Pelvis CT 03/28/21 03:58 IMPRESSION: Normal unenhanced CT of the abdomen and pelvis. Electronically Signed: Zion Guillory DO at 4:38 EST Tel , Service support ,
--- NOTE | 2021-03-28 05:51 | PCM.PN.BLA ---
Progress Note Patient was seen and examined. After patient was seen examined patient told emergency departemnt doctor that he would not stay for admission.
[2021-03-28 06:16] VITALS: PULSE 82; RESP 16; O2SAT 100
== END 2021-03-28 06:17 | disposition home or self-care (01) ==
PROVIDERS: Emergency Provider Emergency Medicine; PCP Internal Medicine
DX: K29.70 Gastritis, unspecified, without bleeding (principal); R13.10 Dysphagia, unspecified; R11.2 Nausea with vomiting, unspecified; F12.10 Cannabis abuse, uncomplicated; Z87.891 Personal history of nicotine dependence; Z79.899 Other long term (current) drug therapy
CPT/HCPCS: 74176; 80053; 81001; 83605; 83690; 85025; 96361; 96365; 96375; 96376; 99283; J7030; A4216; J2405; J3490

== ENCOUNTER 2021-04-22 02:30 | Emergency (ER) | payer BC, MEDICAID, SELFPAY ==
[2021-04-22 02:31] VITALS: BP 137/90; PULSE 74; RESP 16; TEMP 36.4; O2SAT 100; BMI 31.0
[2021-04-22 02:53] LABS: Absolute Lymphocyte Count 1.37 X10^3/uL (0.83-4.51); Absolute Neutrophil Count 10.9 X10^3/uL (2.0-7.7); Basophil# 0.05 X10^3/uL; Basophil% 0.4 % (0-1); Eosinophil# 0.07 X10^3/uL; Eosinophils% 0.5 % (0-5); Hemoglobin 14.4 g/dL (13.0-16.5); Lymphocyte # 1.37 X10^3/ul (0.83-4.51); Lymphocyte % 10.5 % (19-41); Mean Corp Hgb Conc 33.5 g/dL (32-36); Mean Corpuscular Hgb 30.9 pg (27.0-32.0); Mean Corpuscular Volume 92.3 fL (80-94); Mean Platelet Vol. 10.2 fl (6.2-12.0); Monocyte# 0.55 X10^3/uL; Monocyte% 4.2 % (0-10); NRBC Flagged by Analyzer 0 % (0-5); Neutrophil # 10.92 X10^3/uL (2.7-7.7); Neutrophil % 83.9 % (47-70); POSITIVE MORPHOLOGY YES; Platelet Count 280 K/mm3 (150-450); RBC Distribution Width CV 12.4 % (11.6-14.6); Red Blood Count 4.66 M/mm3 (4.6-6.2)
[2021-04-22 02:54] LABS: Differential Indicated SCAN CRITERIA MET
[2021-04-22 03:03] LABS: Anion Gap 5 (5-15); BUN 10 mg/dL (7-18); BUN/Creat Ratio 9.8 RATIO (10-20); Calcium,Total 9.6 mg/dL (8.5-10.1); Chloride 108 mmol/L (98-107); Creatinine, Serum 1.02 mg/dL (0.70-1.30); EST Glomerular Filtration Rate 93 mL/min (>60); Est Glom Filt Rate - Afr Amer 112 mL/min (>60); Estimated Creatinine Clearance 105.25 ml/min; Glucose 103 mg/dL (74-106); Potassium 4.9 mmol/L (3.5-5.1); Sodium Level 139 mmol/L (136-145)
--- NOTE | 2021-04-22 03:04 | ED.VIS.GI ---
HPI HPI - GI History of Present Illness Chief Complaint: Abd Pain Informant: patient Abdominal Pain/Flank Pain Onset: Hours (4-5) Context: Gradual Onset (after eating fish for dinner) Timing: Continuous Quality: Aching Location: - (supraumbilical) Current Severity: Moderate Maximum Severity: Moderate Worsened by: Nothing Relieved by: Nothing Nausea/Vomiting/Emesis GI Symptom: Positive for Nausea and Vomiting Onset: Today Quality: Positive for Nonbilious; Negative for Blood streaks, Coffee ground and Hematemesis Diarrhea/Melena/Hematochezia GI Symptom: Positive for Diarrhea; Negative for Melena Onset: Today Stool Quality: Positive for Loose; Negative for Black, Maroon and BRB per rectum Associated Symptoms Associated Symptoms: Negative for Dysuria, Frequency and Hematuria Narrative Narrative: Patient presents saying that his gastritis is acting up after he ate fish for dinner tonight. States he has had this multiple times, GI cocktail usually helps. He has been vomiting, also had a bout of diarrhea earlier. No blood. No recent alcohol today. States he has followed up and had EGD and colonoscopy that did not show anything obvious as far as the etiology of his gastritis. States he is supposed to follow-up again but has not yet. No recent illness otherwise and has been feeling well lately prior to this. Has come to the ER for these exact same symptoms several times in the past. Although he did not have it done here, he states he has had an ultrasound of his gallbladder in the past that has looked good. [facility] Medical History Abdominal pain Nausea and vomiting No significant medical problems Subclinical hypothyroidism Vitamin D deficiency Home Medications ergocalciferol (vitamin D2) 1,250 mcg (50,000 unit) capsule 50,000 unit PO QWEEK #8 cap 10/14/20 [Rx Last Taken Unknown] omeprazole 40 mg capsule,delayed release 40 mg PO DAILY #90 cap 10/14/20 [Rx Last Taken Unknown] ondansetron 4 mg disintegrating tablet 4 mg PO Q8H PRN #30 tab 10/14/20 [Rx Last Taken Unknown] Allergy/AdvReac Type Severity Reaction Status Date / Time adhesive tape Allergy Rash Verified 03/12/21 23:18 ibuprofen [From Motrin] AdvReac Upset Verified 03/12/21 23:18 Stomach Tegaderm IV Guard AdvReac Rash Uncoded 03/12/21 23:18 Family History Mother Asthma Surgical History History of appendectomy Social History Smoking Status: Former smoker alcohol intake: never substance use type: marijuana ROS ROS ED Constitutional Constitutional ED: Denies chills or fever(s) Eyes Eyes: Denies change in vision or diplopia ENT ENT ED: Denies rhinorrhea or sore throat Cardiovascular Cardiovascular: Denies chest pain or palpitations Respiratory/Chest Respiratory/Chest: Denies cough or dyspnea Gastrointestinal Gastrointestinal: Reports as per HPI, abdominal pain, diarrhea, nausea and vomiting Genitourinary Genitourinary ED: Denies dysuria or hematuria Musculoskeletal Musculoskeletal: Denies back pain or neck pain Integumentary Denies abscess or rash Neurologic Neurologic: Denies headache(s), paresthesias or weakness Psychiatric Psychiatric: Denies anxiety or suicidal thoughts EXAM Physical Exam Const Vital Signs: 04/22/21 02:31 Temperature 97.5 F L Temperature Source Temporal Pulse Rate 74 Respiratory Rate 16 Blood Pressure 137/90 H Blood Pressure Mean 105 Pulse Ox 100 Positive well nourished and well developed General Appearance ED: well developed and NAD HEENT Reports moist mucous membranes normocephalic and atraumatic Eyes PERRL and EOMs intact bilaterally Neck full ROM and supple Resp normal respiratory effort and clear to auscultation bilaterally Cardio regular rate, regular rhythm and no murmurs GI non-distended GI Narrative: Tender epigastrium and supraumbilical area, no guarding or rebound, otherwise nontender. Negative Granados's. Auscultation: normoactive bowel sounds Palpation: soft Back/Spine no CVA tenderness General Back: other FROM Extremity normal to inspection General Extremety ED: Negative for edema, pulses abnormal or tenderness General Extremity: Negative for edema or pulses abnormal Neuro oriented x3, CN's II-XII intact bilaterally and no sensory deficits noted Sensorium / Orientation: awake and alert Motor Exam: strength 5/5 throughout Psych Psych Narrative: Increased stress this past day Skin no rashes or lesions noted and no wounds MDM MDM MDM Narrative Medical decision making narrative: Labs show a mild nonspecific leukocytosis, he has had this multiple times in the past when we check. I did not get a lipase this time because after Zofran followed by GI cocktail, his symptoms resolved and he felt much better. Given this, I advised he continue taking his PPI and follow-up. He is comfortable with that plan. Lab Data Attestation: I reviewed the patient's lab results. Labs: Laboratory Results - last 24 hr 04/22/21 04/22/21 02:44 02:44 WBC 13.0 H RBC 4.66 Hgb 14.4 Hct 43.0 MCV 92.3 MCH 30.9 MCHC 33.5 RDW Std Deviation 42.0 RDW Coeff of Tanya 12.4 Plt Count 280 MPV 10.2 Immature Gran % (Auto) 0.500 Neut % (Auto) 83.9 H Lymph % (Auto) 10.5 L [place] % (Auto) 4.2 Eos % (Auto) 0.5 Baso % (Auto) 0.4 Absolute Neuts (auto) 10.9 H Absolute Lymphs (auto) 1.37 Nucleated RBC % 0 Sodium 139 Potassium 4.9 Chloride 108 H Carbon Dioxide 26.0 Anion Gap 5 BUN 10 Creatinine 1.02 Estim Creat Clear Calc 105.25 Est GFR (MDRD) Af Amer 112 Est GFR (MDRD) Non-Af 93 BUN/Creatinine Ratio 9.8 L Glucose 103 Calcium 9.6 Discharge Plan Triage Chief Complaint: Abd Pain ED Provider: Agus Ruby Dx/Rx/DC Orders Clinical Impression: Acute gastritis without hemorrhage Instructions: Treating Gastritis Prescriptions: No Action omeprazole 40 mg capsule,delayed release(DR/EC) 40 mg PO DAILY Qty: 90 RF: 1 ondansetron 4 mg tablet,disintegrating 4 mg PO Q8H PRN (Reason: nausea and vomiting) Qty: 30 RF: 1 ergocalciferol (vitamin D2) 1,250 mcg (50,000 unit) capsule 50,000 unit PO QWEEK Qty: 8 RF: 0 Primary Care Provider: Lizett Chavez Referrals: Lizett Chavez MD [Primary Care Provider] - 3-5 Days if not improving (And/your gastroenterology) Friend,DO Franco [STAFF PHYSICIAN] - Disposition Disposition: Home, Self Care
[2021-04-22] MEDS: Ondansetron 4 MG/2 ML Vial IV (03:16)
[2021-04-22] MEDS: Mag Hydrox/Al Hydrox/Simeth 30 ML UDC PO (03:16)
[2021-04-22 04:42] LABS: Atypical Lymphocyte RARE %; Differential Comment SCANNED
== END 2021-04-22 04:13 | disposition home or self-care (01) ==
LOC: ED 04:05
PROVIDERS: Emergency Provider Emergency Medicine; PCP Internal Medicine
DX: K29.00 Acute gastritis without bleeding (principal); F12.10 Cannabis abuse, uncomplicated; Z87.891 Personal history of nicotine dependence
CPT/HCPCS: 80048; 85025; 96374; 99285; A4216; J2405

== ENCOUNTER 2021-05-03 12:17 | Emergency (ER) | payer BC, MEDICAID, SELFPAY ==
[2021-05-03 12:18] VITALS: BP 120/79; PULSE 76; RESP 18; TEMP 37.6; O2SAT 98; BMI 30.1
--- NOTE | 2021-05-03 12:41 | EX.ED.DYSGE1 ---
HPI History of Present Illness Chief Complaint: General Illness Detail of Chief Complaint: Acute viremia Informant: patient and spouse/S.O. Onset/Context/Timing Onset: Hours Context: Sudden Onset Timing: Continuous Quality: Pain Current Severity: Severe Maximum Severity: Severe Worsened by: Breathing, movement Relieved by: Nothing Associated Symptoms Associated Symptoms: Headache, fever, shaking chills myalgias arthralgias Narrative Narrative: Patient is a 25-year-old unvaccinated male who presents with fever, chills and myalgias arthralgias started hours ago. He complains of bilateral headache. Denies photophobia. Denies neck pain or neck stiffness. He denies loss of taste or smell. He denies rhinorrhea or postnasal drainage. Denies sore throat. He does report chest discomfort, slight cough and shortness of breath. He does report nausea without vomiting or diarrhea. He denies urologic symptoms. He denies rash. Prior similar symptoms: No Recent Illness/Hospitalization: No PFSH PFSH Medical History Abdominal pain Nausea and vomiting No significant medical problems Subclinical hypothyroidism Vitamin D deficiency Home Medications ergocalciferol (vitamin D2) 1,250 mcg (50,000 unit) capsule 50,000 unit PO QWEEK #8 cap 10/14/20 [Rx Last Taken Unknown] omeprazole 40 mg capsule,delayed release 40 mg PO DAILY #90 cap 10/14/20 [Rx Last Taken Unknown] ondansetron 4 mg disintegrating tablet 4 mg PO Q8H PRN #30 tab 10/14/20 [Rx Last Taken Unknown] Allergy/AdvReac Type Severity Reaction Status Date / Time adhesive tape Allergy Rash Verified 03/12/21 23:18 ibuprofen [From Motrin] AdvReac Upset Verified 03/12/21 23:18 Stomach Tegaderm IV Guard AdvReac Rash Uncoded 03/12/21 23:18 Family History Mother Asthma Surgical History History of appendectomy Social History (Updated 05/03/21 @ 12:[address] Benny Stacy MD) household members: significant other Smoking Status: Former smoker alcohol intake: never substance use type: marijuana ROS ROS ED Constitutional Constitutional ED: Reports chills, fever(s) and subjective; Denies sweats or weight loss Eyes Eyes: Denies blurry vision, change in vision or diplopia ENT ENT ED: Denies ear pain, rhinorrhea or sore throat Cardiovascular Cardiovascular: Reports chest pain; Denies orthopnea, palpitations, paroxysmal nocturnal dyspnea or racing heartbeat Respiratory/Chest Respiratory/Chest: Reports cough and dyspnea; Denies dyspnea on exertion, orthopnea, paroxysmal nocturnal dyspnea or sputum Gastrointestinal Gastrointestinal: Reports nausea; Denies abdominal pain, constipation, diarrhea or vomiting Genitourinary Genitourinary ED: Denies dysuria, hematuria or urinary frequency Musculoskeletal Musculoskeletal: Reports arthralgias, back pain and myalgias; Denies neck pain Integumentary Denies rash Neurologic Neurologic: Reports headache(s) and weakness; Denies paresthesias Endocrine Endocrinology: Denies polydipsia, polyphagia or polyuria EXAM Physical Exam Const Vital Signs: 05/03/21 12:18 05/03/21 12:46 05/03/21 12:48 Temperature 99.6 F H 99.6 F H Temperature Source Temporal Temporal Pulse Rate 76 76 Respiratory Rate 18 18 Respiratory Effort Normal Non-Labored Respiratory Pattern Normal Blood Pressure 120/79 120/79 Blood Pressure Mean 92 92 Pulse Ox 98 98 Oxygen Delivery Method Room Air Room Air 05/03/21 13:31 05/03/21 14:23 Temperature 98.9 F Temperature Source Oral Pulse Rate 69 68 Respiratory Rate 13 25 H Respiratory Effort Respiratory Pattern Blood Pressure 168/79 H 165/87 H Blood Pressure Mean 108 113 Pulse Ox 100 99 Oxygen Delivery Method Room Air Room Air Positive well nourished and well developed General Appearance ED: well developed; Negative for cyanotic, diaphoretic, NAD or pallor HEENT Reports TM's clear and dry mucous membranes Negative for trauma or tenderness Tympanic Membrane ED: Yes TM's clear Mouth ED: Yes dry mucous membranes Mouth: dry mucous membranes Eyes PERRL and EOMs intact bilaterally General Eye ED: Negative for pale conjunctiva or scleral icterus Neck no lymphadenopathy, supple and no JVD Chest Wall inspection of chest normal and palpation of chest normal Resp normal respiratory effort and clear to auscultation bilaterally Cardio regular rate, regular rhythm, S1 normal heart sound, S2 normal heart sound and no murmurs GI normal to inspection, nondistended, normoactive bowel sounds, non-tender and non-distended Palpation: soft Back/Spine no CVA tenderness Thoracic Spine / Upper Back: Negative for thoracic spinal tenderness or paraspinal muscle tenderness Lumbar Spine / Lower Back: Negative for lumbar spinal tenderness Extremity normal to inspection General Extremety ED: Negative for edema or tenderness General Extremity: Negative for edema Neuro oriented x3, CN's II-XII intact bilaterally and no sensory deficits noted Sensorium / Orientation: alert Motor Exam: strength 5/5 throughout Psych mental status grossly normal Psych Narrative: dramatic Skin no rashes or lesions noted General Skin Exam: elasticity normal; Negative for jaundice or pallor MDM MDM MDM Narrative Medical decision making narrative: SPECT patient has an acute viral illness. Will assess for Covid and influenza since he is unvaccinated. Since his respiratory rate is normal he is not hypoxic and there is no auscultatory findings x-ray was not obtained. He was treated with Toradol for his myalgias arthralgias and 1 L of normal saline was ordered. Lab Data Attestation: I reviewed the patient's lab results. Lab results narrative: Covid test was positive. Will give patient work excuse. His laboratory results are otherwise unremarkable. Labs: Laboratory Results - last 24 hr 05/03/21 05/03/21 13:00 13:00 WBC 6.7 RBC 4.33 L Hgb 13.5 Hct 38.9 L MCV 89.8 MCH 31.2 MCHC 34.7 RDW Std Deviation 40.8 RDW Coeff of Tanya 12.3 Plt Count 244 MPV 9.9 Immature Gran % (Auto) 0.300 Neut % (Auto) 81.0 H Lymph % (Auto) 4.3 L [place] % (Auto) 13.9 H Eos % (Auto) 0.1 Baso % (Auto) 0.4 Absolute Neuts (auto) 5.4 Absolute Lymphs (auto) 0.29 L Nucleated RBC % 0 Sodium 138 Potassium 3.5 Chloride 105 Carbon Dioxide 24.0 Anion Gap 9 BUN 7 Creatinine 0.96 Estim Creat Clear Calc 111.82 Est GFR (MDRD) Af Amer 120 Est GFR (MDRD) Non-Af 99 BUN/Creatinine Ratio 7.3 L Glucose 92 Calcium 9.5 Discharge Plan Triage Chief Complaint: General Illness ED Provider: StacyBenny Dx/Rx/DC Orders Clinical Impression: COVID-19 virus infection Instructions: Coronavirus Disease 2019 (COVID-19): Caring for Yourself or Others, COVID-19: Lying in a Prone Position (Proning) Prescriptions: No Action omeprazole 40 mg capsule,delayed release(DR/EC) 40 mg PO DAILY Qty: 90 RF: 1 ondansetron 4 mg tablet,disintegrating 4 mg PO Q8H PRN (Reason: nausea and vomiting) Qty: 30 RF: 1 ergocalciferol (vitamin D2) 1,250 mcg (50,000 unit) capsule 50,000 unit PO QWEEK Qty: 8 RF: 0 Primary Care Provider: Lizett Chavez Referrals: Lizett Chavez MD [Primary Care Provider] - As Needed Disposition Disposition: Home, Self Care
[2021-05-03 12:46] VITALS: BP 120/79; PULSE 76; RESP 18; TEMP 37.6; O2SAT 98
[2021-05-03] MEDS: Ketorolac 15 MG/ML Vial IV (13:02)
[2021-05-03 13:11] LABS: Absolute Lymphocyte Count 0.29 X10^3/uL (0.83-4.51); Absolute Neutrophil Count 5.4 X10^3/uL (2.0-7.7); Basophil# 0.03 X10^3/uL; Basophil% 0.4 % (0-1); Eosinophil# 0.01 X10^3/uL; Eosinophils% 0.1 % (0-5); Hematocrit 38.9 % (40-54); Hemoglobin 13.5 g/dL (13.0-16.5); Lymphocyte # 0.29 X10^3/ul (0.83-4.51); Lymphocyte % 4.3 % (19-41); Mean Corp Hgb Conc 34.7 g/dL (32-36); Mean Corpuscular Hgb 31.2 pg (27.0-32.0); Mean Corpuscular Volume 89.8 fL (80-94); Mean Platelet Vol. 9.9 fl (6.2-12.0); Monocyte# 0.93 X10^3/uL; Monocyte% 13.9 % (0-10); NRBC Flagged by Analyzer 0 % (0-5); Neutrophil # 5.39 X10^3/uL (2.7-7.7); POSITIVE DIFFERENTIAL YES; Platelet Count 244 K/mm3 (150-450); RBC Distribution Width CV 12.3 % (11.6-14.6); RBC Distribution Width SD 40.8 fl (35.1-43.9); Red Blood Count 4.33 M/mm3 (4.6-6.2); White Blood Count 6.7 K/mm3 (4.4-11.0)
[2021-05-03 13:12] LABS: Differential Indicated SCAN CRITERIA MET
[2021-05-03 13:25] LABS: Anion Gap 9 (5-15); BUN 7 mg/dL (7-18); BUN/Creat Ratio 7.3 RATIO (10-20); Calcium,Total 9.5 mg/dL (8.5-10.1); Chloride 105 mmol/L (98-107); Creatinine, Serum 0.96 mg/dL (0.70-1.30); EST Glomerular Filtration Rate 99 mL/min (>60); Est Glom Filt Rate - Afr Amer 120 mL/min (>60); Estimated Creatinine Clearance 111.82 ml/min; Glucose 92 mg/dL (74-106); Potassium 3.5 mmol/L (3.5-5.1); Sodium Level 138 mmol/L (136-145)
[2021-05-03 13:31] VITALS: BP 168/79; PULSE 69; RESP 13; TEMP 37.2; O2SAT 100
[2021-05-03 14:23] VITALS: BP 165/87; PULSE 68; RESP 25; O2SAT 99
[2021-05-03 14:44] VITALS: BP 146/75; PULSE 69; RESP 19; O2SAT 98
== END 2021-05-03 14:45 | disposition home or self-care (01) ==
PROVIDERS: Emergency Provider Emergency Medicine; PCP Internal Medicine
DX: U07.1 COVID-19 (principal); F12.10 Cannabis abuse, uncomplicated; Z87.891 Personal history of nicotine dependence; Z79.899 Other long term (current) drug therapy
CPT/HCPCS: 80048; 85025; 87426; 87804; 96374; 99284; A4216

== ENCOUNTER 2021-05-15 10:08 | Emergency (ER) | payer BC, MEDICAID, SELFPAY ==
[2021-05-15 10:09] VITALS: BP 132/79; PULSE 73; RESP 18; TEMP 36.6; O2SAT 100; BMI 30.1
[2021-05-15 10:11] VITALS: BP 132/79; PULSE 73; RESP 18; TEMP 36.6; O2SAT 100
--- NOTE | 2021-05-15 11:08 | EDS_ITS ---
HPI HPI - GI History of Present Illness Chief Complaint: Abd Pain Narrative Narrative: 25-year-old male with history of gastritis presenting with epigastric pain, nausea, vomiting. Patient did eat a lot of red meat, sauerkraut last night. Significant other states that this would normally set him off. In addition to this he is diagnosed with COVID-19 on the . As far as cough and breathing he has not had any issues. No fevers or chills. Patient started having epigastric pain and nausea and vomiting at about 3 AM this morning. Patient states that he has been seen for gastritis in the past and usually gets a GI cocktail and this helps him. Sometimes he needs IV fluids and Zofran. Patient had previously had upper and lower endoscopy. He states he had a polyp removed at 1 point but they found nothing acute on his upper endoscopy. PFSH PFS Medical History Abdominal pain Nausea and vomiting No significant medical problems Subclinical hypothyroidism Vitamin D deficiency Home Medications ergocalciferol (vitamin D2) 1,250 mcg (50,000 unit) capsule 50,000 unit PO QWEEK #8 cap 10/14/20 [Rx Last Taken Unknown] omeprazole 40 mg capsule,delayed release 40 mg PO DAILY #90 cap 10/14/20 [Rx Last Taken Unknown] ondansetron 4 mg disintegrating tablet 4 mg PO Q8H PRN #30 tab 10/14/20 [Rx Last Taken Unknown] ondansetron 4 mg PO Q8H PRN PRN #14 tab 05/15/21 [Rx Last Taken Unknown] Allergy/AdvReac Type Severity Reaction Status Date / Time adhesive tape Allergy Rash Verified 05/15/21 10:12 ibuprofen [From Motrin] AdvReac Upset Verified 05/15/21 10:12 Stomach Tegaderm IV Guard AdvReac Rash Uncoded 05/15/21 10:12 Family History Mother Asthma Surgical History History of appendectomy Social History household members: significant other Smoking Status: Former smoker alcohol intake: never substance use type: marijuana ROS ROS ED Constitutional Constitutional ED: Denies chills or fever(s) ENT ENT ED: Denies rhinorrhea or sore throat Cardiovascular Cardiovascular: Denies chest pain or palpitations Respiratory/Chest Respiratory/Chest: Denies cough, dyspnea or dyspnea on exertion Gastrointestinal Gastrointestinal: Reports abdominal pain, nausea and vomiting Genitourinary Genitourinary ED: Denies dysuria or hematuria Musculoskeletal Musculoskeletal: Denies arthralgias or myalgias Integumentary Denies rash Neurologic Neurologic: Denies headache(s) or paresthesias EXAM Physical Exam Const Vital Signs: 05/15/21 10:09 05/15/21 10:11 05/15/21 14:16 Temperature 97.9 F 97.9 F Temperature Source Temporal Temporal Pulse Rate 73 73 71 Respiratory Rate 18 18 16 Blood Pressure 132/79 H 132/79 H 127/69 H Blood Pressure Mean 96 96 Pulse Ox 100 100 99 Oxygen Delivery Method Room Air Room Air Positive well nourished General Appearance ED: NAD; Negative for pallor HEENT Reports moist mucous membranes normocephalic and atraumatic Eyes PERRL and EOMs intact bilaterally General Eye ED: Negative for pale conjunctiva or scleral icterus Neck no lymphadenopathy and supple Resp normal respiratory effort and clear to auscultation bilaterally Cardio regular rate and regular rhythm Neuro Sensorium / Orientation: alert, oriented to person, oriented to place and oriented to time Psych mental status grossly normal and thought process normal Skin General Skin Exam: Negative for jaundice or pallor Rashes: no rashes MDM MDM MDM Narrative Medical decision making narrative: Patient given morphine and Zofran and IV fluids. I did obtain blood work and the patient has a leukocytosis of 15.5. With slight left shift. Renal function electrolytes are normal. LFTs are normal with exception of a ALT of 69. Lipase is negative at 67. Due to patient's continued pain and nausea did obtain a CT of the abdomen pelvis which is negative for acute intra-abdominal findings. After this was negative patient given a GI cocktail and he felt much better. I recommended that he avoid the food that causes this discomfort to him. He will be given referral to Dr. Marshall as he has a chronic issue with this. Patient given Zofran for home. Impression: 1. Gastritis 2. History of COVID-19 Lab Data Labs: Laboratory Results - last 24 hr 05/15/21 05/15/21 11:25 11:25 WBC 15.5 H RBC 4.99 Hgb 15.3 Hct 45.0 MCV 90.2 MCH 30.7 MCHC 34.0 RDW Std Deviation 40.6 RDW Coeff of Tanya 12.2 Plt Count 354 MPV 10.1 Immature Gran % (Auto) 0.800 Neut % (Auto) 81.5 H Lymph % (Auto) 11.8 L [place] % (Auto) 5.1 Eos % (Auto) 0.5 Baso % (Auto) 0.3 Absolute Neuts (auto) 12.6 H Absolute Lymphs (auto) 1.83 Nucleated RBC % 0 Sodium 139 Potassium 3.9 Chloride 108 H Carbon Dioxide 23.0 Anion Gap 8 BUN 13 Creatinine 1.14 Estim Creat Clear Calc 94.17 Est GFR (MDRD) Af Amer 99 Est GFR (MDRD) Non-Af 81 BUN/Creatinine Ratio 11.4 Glucose 93 Calcium 10.3 H Total Bilirubin 0.30 AST 30 ALT 69 H Alkaline Phosphatase 87 Total Protein 9.0 H Albumin 4.5 Globulin 4.5 H Albumin/Globulin Ratio 1.0 Lipase 67 L Radiography Diagnostic Testing: Clinical Impression(s) from Imaging Studies Abdomen/Pelvis CT 05/15/21 12:01 IMPRESSION: Normal enhanced CT of the abdomen and pelvis. Electronically Signed: Fantasma Beard MD at 13:22 EST Tel , Service support , Discharge Plan Triage Chief Complaint: Abd Pain ED Provider: Shilo Olmedo Dx/Rx/DC Orders Instructions: ED PEPTIC ULCER vs GASTRITIS Prescriptions: New ondansetron 4 mg tablet,disintegrating 4 mg PO Q8H PRN PRN (Reason: Nausea) Qty: 14 RF: 0 No Action omeprazole 40 mg capsule,delayed release(DR/EC) 40 mg PO DAILY Qty: 90 RF: 1 ondansetron 4 mg tablet,disintegrating 4 mg PO Q8H PRN (Reason: nausea and vomiting) Qty: 30 RF: 1 ergocalciferol (vitamin D2) 1,250 mcg (50,000 unit) capsule 50,000 unit PO QWEEK Qty: 8 RF: 0 Primary Care Provider: Lizett Chavez Referrals: Lizett Chavez MD [Primary Care Provider] - Friend,DO Franco [STAFF PHYSICIAN] - As soon as possible Disposition Disposition: Home, Self Care Discharge Date/Time: 05/15/21 14:16
[2021-05-15] MEDS: Morphine 4 MG/ML Syringe IV ×2 (11:23→12:29)
[2021-05-15] MEDS: Ondansetron 4 MG/2 ML Vial IV (11:24)
[2021-05-15] MEDS: 0.9% Normal Saline 1,000 ML 1000 ML IV (11:25)
[2021-05-15] MEDS: Famotidine 200 MG/20 ML MDV 20 MG in 0.9% Normal Saline (Pres. free 8 ML 300 MG IV (11:29)
[2021-05-15 11:33] LABS: Absolute Lymphocyte Count 1.83 X10^3/uL (0.83-4.51); Absolute Neutrophil Count 12.6 X10^3/uL (2.0-7.7); Basophil# 0.05 X10^3/uL; Basophil% 0.3 % (0-1); Eosinophil# 0.07 X10^3/uL; Eosinophils% 0.5 % (0-5); Hemoglobin 15.3 g/dL (13.0-16.5); Lymphocyte # 1.83 X10^3/ul (0.83-4.51); Lymphocyte % 11.8 % (19-41); Mean Corpuscular Hgb 30.7 pg (27.0-32.0); Mean Corpuscular Volume 90.2 fL (80-94); Mean Platelet Vol. 10.1 fl (6.2-12.0); Monocyte# 0.79 X10^3/uL; Monocyte% 5.1 % (0-10); NRBC Flagged by Analyzer 0 % (0-5); Neutrophil % 81.5 % (47-70); Platelet Count 354 K/mm3 (150-450); RBC Distribution Width CV 12.2 % (11.6-14.6); RBC Distribution Width SD 40.6 fl (35.1-43.9); Red Blood Count 4.99 M/mm3 (4.6-6.2); White Blood Count 15.5 K/mm3 (4.4-11.0)
[2021-05-15 11:47] LABS: AST(SGOT) 30 U/L (15-37); Alanine Aminotransfer ALT/SGPT 69 U/L (16-61); Albumin, Serum 4.5 g/dL (3.2-5.0); Alkaline Phosphatase 87 U/L (45-117); Anion Gap 8 (5-15); BUN 13 mg/dL (7-18); BUN/Creat Ratio 11.4 RATIO (10-20); Calcium,Total 10.3 mg/dL (8.5-10.1); Chloride 108 mmol/L (98-107); Creatinine, Serum 1.14 mg/dL (0.70-1.30); EST Glomerular Filtration Rate 81 mL/min (>60); Est Glom Filt Rate - Afr Amer 99 mL/min (>60); Estimated Creatinine Clearance 94.17 ml/min; Globulin 4.5 g/dL (2.2-4.2); Glucose 93 mg/dL (74-106); Lipase 67 U/L (73-393); Potassium 3.9 mmol/L (3.5-5.1); Sodium Level 139 mmol/L (136-145)
--- NOTE | 2021-05-15 11:57 | ED.RN ---
pt and gf state that there is something. gf states, his eyes keep rolling in the back of his head. provider informed regarding gf and pt's concerns. provider at bedside.
--- NOTE | 2021-05-15 12:01 | CT_ITS ---
STUDY: CT ABDOMEN AND PELVIS WITH CONTRAST REASON FOR EXAM: Male, 25 years old. abdominal pain RADIATION DOSAGE (If Supplied By Facility): CTDIvol = ( 12.14 ) mGy, DLP = ( 912.65 ) mGycm TECHNIQUE: Transaxial images were obtained from the dome of the diaphragm to the symphysis pubis without oral contrast. IV 100mL Isovue-[id number] was administered. Sagittal and coronal images were reconstructed. Individualized dose optimization techniques were used for this CT. COMPARISON: 03/28/2021 FINDINGS: The visualized lung bases are unremarkable. The visualized portions of the heart are within normal limits. Normal liver. Normal gallbladder and extrahepatic biliary system. Normal spleen. Normal pancreas. Normal bilateral adrenal glands. Normal right kidney. Normal left kidney. Normal visualized stomach. Normal small intestine. Normal colon. There is non-visualization of the appendix. Normal abdominal aorta. Normal inferior vena cava. Normal retroperitoneum. Normal urinary bladder. Normal abdominal wall. Normal osseous structures. CT/Abdomen/Pelvis W IV Cont ONLY IMPRESSION: Normal enhanced CT of the abdomen and pelvis. Electronically Signed: Fantasma Beard MD at 13:22 EST Tel , Service support ,
[2021-05-15] MEDS: Haloperidol Lactate 5 MG/ML Vial 2 MG IV (12:29)
[2021-05-15] MEDS: Mag Hydrox/Al Hydrox/Simeth 30 ML UDC PO (13:48)
[2021-05-15 14:16] VITALS: BP 127/69; PULSE 71; RESP 16; O2SAT 99
== END 2021-05-15 14:16 | disposition home or self-care (01) ==
PROVIDERS: Emergency Provider Student in an Organized Health Care Education/Training Program; PCP Internal Medicine; Visit Provider Student in an Organized Health Care Education/Training Program
DX: K29.70 Gastritis, unspecified, without bleeding (principal); F12.10 Cannabis abuse, uncomplicated; Z87.19 Personal history of other diseases of the digestive system; Z87.891 Personal history of nicotine dependence; Z86.16 Personal history of COVID-19
CPT/HCPCS: 74177; 80053; 83690; 85025; 96365; 96375; 96376; 99284; J7030; Q9967; A4216; J2405; J3490

== ENCOUNTER 2021-06-02 10:43 | Emergency (ER) | payer BC, MEDICAID, SELFPAY ==
[2021-06-02 10:44] VITALS: BP 166/69; PULSE 69; RESP 14; TEMP 36.6; O2SAT 100; BMI 31.1
--- NOTE | 2021-06-02 11:09 | EDS_ITS ---
HPI HPI - GI History of Present Illness Chief Complaint: Abd Pain Detail of Chief Complaint: Abdominal pain that started around 4 AM. Informant: patient and spouse/S.O. Narrative Narrative: Patient presents the emergency department complaint of abdominal pain us around 4 AM. Significant other gives most of the history as patient is just rolling around and moaning. He has had multiple bouts of gastritis in the past over the last 6 years or so intermittently. Patient's been seen in this emergency department for same multiple times. He has had several episodes of vomiting. He denies any blood in stool or black tarry stool. There is been no fever. Patient denies illicit drug use. Patient has had an EGD within the last year as well as a colonoscopy. Patient is scheduled to see educational recruiter in June. After further discussion with patient he states that he has omeprazole at home which he stopped taking but still has it and has refills for it therefore I will not prescribe Prevacid. Patient is advised to restart his omeprazole. Prior similar symptoms: Yes PFSH PFSH Medical History (Updated 06/02/21 @ 12:[address] Adelina Jefferson DO) Abdominal pain Nausea and vomiting Subclinical hypothyroidism Vitamin D deficiency Home Medications ergocalciferol (vitamin D2) 1,250 mcg (50,000 unit) capsule 50,000 unit PO QWEEK #8 cap 10/14/20 [Rx Last Taken Unknown] omeprazole 40 mg capsule,delayed release 40 mg PO DAILY #90 cap 10/14/20 [Rx Las t Taken Unknown] ondansetron 4 mg disintegrating tablet 4 mg PO Q8H PRN #30 tab 10/14/20 [Rx Last Taken Unknown] ondansetron 4 mg PO Q8H PRN PRN #14 tab 05/15/21 [Rx Last Taken Unknown] Allergy/AdvReac Type Severity Reaction Status Date / Time adhesive tape Allergy Rash Verified 06/02/21 10:44 ibuprofen [From Motrin] AdvReac Upset Verified 06/02/21 10:44 Stomach Tegaderm IV Guard AdvReac Rash Uncoded 06/02/21 10:44 Family History Mother Asthma Surgical History History of appendectomy Social History household members: significant other Smoking Status: Former smoker alcohol intake: never substance use type: marijuana ROS ROS ED Constitutional Constitutional ED: Reports systems reviewed and no addt'l complaints, except as documented; Denies body ache(s), change in weight or chills Eyes Eyes: Denies acute decrease in peripheral vision, change in vision, double vision or loss of vision ENT ENT ED: Reports none; Denies ear pain, lip swelling, loss taste/smell, neck pain, otalgia or sore throat Cardiovascular Cardiovascular: Reports none; Denies abdominal pain, chest pain with activity, leg edema, lightheadedness, palpitations, rapid heart rate or syncope Respiratory/Chest Respiratory/Chest: Reports none; Denies change in mental status, dry cough, dyspnea, hemoptysis, shortness of breath at rest or shortness of breath with exertion Gastrointestinal Gastrointestinal: Reports none, abdominal pain, nausea and vomiting; Denies change in stool character, diarrhea, hematemesis, hematochezia, melena or rectal bleeding Genitourinary Genitourinary ED: Reports none; Denies abdominal discomfort, anuria, dysuria, genital pain or polyuria Musculoskeletal Musculoskeletal: Reports none; Denies arthralgias, back pain, difficulty walking, extremity pain, muscle weakness or myalgias Integumentary Reports none; Denies abscess or rash Neurologic Neurologic: Reports none; Denies abnormal gait, confusion, focal weakness, frequent falls, headache(s), loss of vision, numbness, paresthesias, radicular pain, vertigo or weakness Psychiatric Psychiatric: Reports systems reviewed and no addt'l complaints, except as documented and none; Denies behavioral changes, confusion, difficulty concentrating, hallucinations, suicidal ideation, tactile hallucinations or visual hallucinations Endocrine Endocrinology: Denies none, cold intolerance, excessive sweating, fatigue or he at intolerance Hematologic/Lymphatic Hematologic/Lymphatic: Reports none; Denies anemia, easy bleeding or easy bruising Allergic/Immunologic Allergic/Immunologic ED: Denies as per HPI, none, lip swelling, mouth swelling, throat swelling, tongue swelling or hives EXAM Physical Exam Const Vital Signs: 06/02/21 10:44 Temperature 98 F Temperature Source Temporal Pulse Rate 69 Respiratory Rate 14 Blood Pressure 166/69 H Blood Pressure Mean 101 Pulse Ox 100 Oxygen Delivery Method Room Air Positive well nourished and well developed General Appearance ED: well developed and NAD HEENT Reports TM's clear and moist mucous membranes normocephalic and atraumatic; Negative for trauma or tenderness Tympanic Membrane ED: Yes TM's clear Eyes PERRL and EOMs intact bilaterally General Eye ED: Negative for pale conjunctiva or scleral icterus Neck no lymphadenopathy, supple and no JVD General: Negative for tenderness Chest Wall inspection of chest normal and palpation of chest normal Chest: Negative for tenderness Resp normal respiratory effort and clear to auscultation bilaterally Effort and Inspection: Negative for respiratory distress or pain with movement Auscultation: Negative for rhonchi, wheezes or diminished lung sounds Cardio regular rate, regular rhythm, S1 normal heart sound, S2 normal heart sound and no murmurs Peripheral Pulses: pulses 2+ throughout GI normal to inspection, nondistended, normoactive bowel sounds, soft to palpation, non-distended and no masses GI Narrative: Patient with diffuse tenderness on exam. There is no rebound, rigidity, or. Signs. Back/Spine no CVA tenderness and no thoracic nor lumbar tenderness Extremity normal to inspection General Extremety ED: Negative for edema General Extremity: Negative for edema Neuro oriented x3, CN's II-XII intact bilaterally, no sensory deficits noted and gait normal Sensorium / Orientation: awake, alert, oriented to person, oriented to place and oriented to time Motor Exam: strength 5/5 throughout and strength abnormal Psych mental status grossly normal Skin no rashes or lesions noted and no wounds MDM MDM MDM Narrative Medical decision making narrative: IV line established on arrival. Patient received a GI cocktail as well as morphine and Zofran. He continued to complain of pain was given a second dose of morphine. Patient continues with some nausea and was given Reglan 5 mg IV as his pain is not very well controlled he states. Patient able to have a conversation with me on reevaluation. His abdomen is benign. He did have an elevated lactate and the etiology of this is on clear although may be related to all his retching and vomiting and hyperventilating. Patient is comfortable going home he has Zofran at home. I will start him on Prevacid for 2 weeks. Patient to keep his appointment with GI. He is advised to return if worsening pain, fever, persistent vomiting, or condition worsen anyway. Patient states that he ate chili last night and he ate quite a bit of food before going to bed and that can sometimes trigger these episodes that he has had frequently for years. Lab Data Attestation: I reviewed the patient's lab results. Labs: Laboratory Results - last 24 hr 06/02/21 06/02/21 06/02/21 11:20 11:20 11:20 WBC 12.8 H RBC 4.89 Hgb 14.9 Hct 44.3 MCV 90.6 MCH 30.5 MCHC 33.6 RDW Std Deviation 41.7 RDW Coeff of Tanya 12.5 Plt Count 309 MPV 10.4 Immature Gran % (Auto) 0.200 Neut % (Auto) 76.5 H Lymph % (Auto) 18.5 L Gates % (Auto) 3.9 Eos % (Auto) 0.5 Baso % (Auto) 0.4 Absolute Neuts (auto) 9.8 H Absolute Lymphs (auto) 2.37 Nucleated RBC % 0 Sodium 138 Potassium 3.6 Chloride 106 Carbon Dioxide 21.0 Anion Gap 11 BUN 8 Creatinine 1.09 Estim Creat Clear Calc 98.49 Est GFR (MDRD) Af Amer 104 Est GFR (MDRD) Non-Af 86 BUN/Creatinine Ratio 7.3 L Glucose 110 H Lactic Acid 3.8 H* Calcium 10.3 H Total Bilirubin 0.50 AST 22 ALT 34 Alkaline Phosphatase 88 Total Protein 8.8 H Albumin 4.4 Globulin 4.4 H Albumin/Globulin Ratio 1.0 Lipase 49 L Discharge Plan Triage Chief Complaint: Abd Pain ED Provider: Adelina Jefferson Dx/Rx/DC Orders Clinical Impression: Abdominal pain, Gastritis Instructions: ED Gastritis (Adult), ED Abdominal Pain Unkn Cause Male... Prescriptions: No Action omeprazole 40 mg capsule,delayed release(DR/EC) 40 mg PO DAILY Qty: 90 RF: 1 ondansetron 4 mg tablet,disintegrating 4 mg PO Q8H PRN (Reason: nausea and vomiting) Qty: 30 RF: 1 ondansetron 4 mg tablet,disintegrating 4 mg PO Q8H PRN PRN (Reason: Nausea) Qty: 14 RF: 0 ergocalciferol (vitamin D2) 1,250 mcg (50,000 unit) capsule 50,000 unit PO QWEEK Qty: 8 RF: 0 Primary Care Provider: Lizett Chavez Referrals: Lizett Chavez MD [Primary Care Provider] - Franco Marshall DO [STAFF PHYSICIAN] - Keep [facility] appointment Disposition Disposition: Home, Self Care
[2021-06-02] MEDS: Ondansetron 4 MG/2 ML Vial IV (11:23)
[2021-06-02] MEDS: Morphine 4 MG/ML Syringe IV ×2 (11:23→12:09)
[2021-06-02] MEDS: Mag Hydrox/Al Hydrox/Simeth 30 ML UDC PO (11:24)
[2021-06-02] MEDS: 0.9% Normal Saline 1,000 ML 125 ML IV (11:24)
[2021-06-02 11:45] LABS: Absolute Lymphocyte Count 2.37 X10^3/uL (0.83-4.51); Absolute Neutrophil Count 9.8 X10^3/uL (2.0-7.7); Basophil# 0.05 X10^3/uL; Basophil% 0.4 % (0-1); Eosinophil# 0.06 X10^3/uL; Eosinophils% 0.5 % (0-5); Hematocrit 44.3 % (40-54); Hemoglobin 14.9 g/dL (13.0-16.5); Lymphocyte # 2.37 X10^3/ul (0.83-4.51); Lymphocyte % 18.5 % (19-41); Mean Corp Hgb Conc 33.6 g/dL (32-36); Mean Corpuscular Hgb 30.5 pg (27.0-32.0); Mean Corpuscular Volume 90.6 fL (80-94); Mean Platelet Vol. 10.4 fl (6.2-12.0); Monocyte% 3.9 % (0-10); NRBC Flagged by Analyzer 0 % (0-5); Neutrophil # 9.82 X10^3/uL (2.7-7.7); Neutrophil % 76.5 % (47-70); Platelet Count 309 K/mm3 (150-450); RBC Distribution Width CV 12.5 % (11.6-14.6); RBC Distribution Width SD 41.7 fl (35.1-43.9); Red Blood Count 4.89 M/mm3 (4.6-6.2); White Blood Count 12.8 K/mm3 (4.4-11.0)
[2021-06-02 11:59] LABS: AST(SGOT) 22 U/L (15-37); Alanine Aminotransfer ALT/SGPT 34 U/L (16-61); Albumin, Serum 4.4 g/dL (3.2-5.0); Alkaline Phosphatase 88 U/L (45-117); Anion Gap 11 (5-15); BUN 8 mg/dL (7-18); BUN/Creat Ratio 7.3 RATIO (10-20); Calcium,Total 10.3 mg/dL (8.5-10.1); Chloride 106 mmol/L (98-107); Creatinine, Serum 1.09 mg/dL (0.70-1.30); EST Glomerular Filtration Rate 86 mL/min (>60); Est Glom Filt Rate - Afr Amer 104 mL/min (>60); Estimated Creatinine Clearance 98.49 ml/min; Globulin 4.4 g/dL (2.2-4.2); Glucose 110 mg/dL (74-106); Lipase 49 U/L (73-393); Potassium 3.6 mmol/L (3.5-5.1); Protein, Total 8.8 g/dL (6.4-8.2); Sodium Level 138 mmol/L (136-145)
[2021-06-02 12:17] LABS: Lactic Acid 3.8 mmol/L (0.4-1.9)
[2021-06-02] MEDS: Metoclopramide 10 MG/2 ML Vial 5 MG IV (12:57)
[2021-06-02 13:19] VITALS: BP 149/95; PULSE 65
[2021-06-02] MEDS: HYDROmorphone 1 MG/ML Syringe IV (13:37)
[2021-06-02 15:40] LABS: Reflex Lactate? Y
== END 2021-06-02 14:22 | disposition home or self-care (01) ==
PROVIDERS: Emergency Provider Emergency Medicine; PCP Internal Medicine; Visit Provider Emergency Medicine
DX: K29.70 Gastritis, unspecified, without bleeding (principal); F12.10 Cannabis abuse, uncomplicated; Z87.891 Personal history of nicotine dependence
CPT/HCPCS: 80053; 83605; 83690; 85025; 96374; 96375; 96376; 99283; J7030; A4216; J2405

== ENCOUNTER 2021-06-04 08:11 | Emergency (ER) | payer MEDICAID, SELFPAY ==
[2021-06-04 08:12] VITALS: BP 136/82; PULSE 72; RESP 16; TEMP 36.6; BMI 30.4
[2021-06-04 08:33] LABS: Absolute Lymphocyte Count 2.03 X10^3/uL (0.83-4.51); Absolute Neutrophil Count 6.2 X10^3/uL (2.0-7.7); Basophil# 0.06 X10^3/uL; Basophil% 0.7 % (0-1); Eosinophil# 0.12 X10^3/uL; Eosinophils% 1.3 % (0-5); Hemoglobin 14.4 g/dL (13.0-16.5); Lymphocyte # 2.03 X10^3/ul (0.83-4.51); Lymphocyte % 22.4 % (19-41); Mean Corp Hgb Conc 34.3 g/dL (32-36); Mean Corpuscular Hgb 30.7 pg (27.0-32.0); Mean Corpuscular Volume 89.6 fL (80-94); Mean Platelet Vol. 9.9 fl (6.2-12.0); Monocyte% 6.6 % (0-10); NRBC Flagged by Analyzer 0 % (0-5); Neutrophil # 6.24 X10^3/uL (2.7-7.7); Neutrophil % 68.7 % (47-70); Platelet Count 264 K/mm3 (150-450); RBC Distribution Width CV 12.7 % (11.6-14.6); RBC Distribution Width SD 41.4 fl (35.1-43.9); Red Blood Count 4.69 M/mm3 (4.6-6.2); White Blood Count 9.1 K/mm3 (4.4-11.0)
[2021-06-04] MEDS: Ondansetron 4 MG/2 ML Vial IV (08:41)
[2021-06-04] MEDS: morphine 8 MG/ML Syringe IV (08:42)
--- NOTE | 2021-06-04 08:42 | ED.RN ---
pt medicated. computer will not scan. no v number on chart. meds verified with Sheeba CAVANAUGH. pt refuses mylanta/lido mix at this time
[2021-06-04 08:50] LABS: AST(SGOT) 20 U/L (15-37); Alanine Aminotransfer ALT/SGPT 32 U/L (16-61); Albumin, Serum 4.4 g/dL (3.2-5.0); Alkaline Phosphatase 83 U/L (45-117); Anion Gap 8 (5-15); BUN 10 mg/dL (7-18); BUN/Creat Ratio 9.5 RATIO (10-20); Chloride 107 mmol/L (98-107); Creatinine, Serum 1.05 mg/dL (0.70-1.30); EST Glomerular Filtration Rate 89 mL/min (>60); Est Glom Filt Rate - Afr Amer 108 mL/min (>60); Estimated Creatinine Clearance 102.24 ml/min; Globulin 4.5 g/dL (2.2-4.2); Glucose 99 mg/dL (74-106); Lipase 73 U/L (73-393); Potassium 3.7 mmol/L (3.5-5.1); Protein, Total 8.9 g/dL (6.4-8.2); Sodium Level 139 mmol/L (136-145)
--- NOTE | 2021-06-04 08:53 | ED.RN ---
PT REQUESTING MORE PAIN MEDICATION. DR ANDERSON
[2021-06-04] MEDS: Famotidine 200 MG/20 ML MDV 20 MG in 0.9% Normal Saline (Pres. free 8 ML 300 MG IV (08:57)
[2021-06-04] MEDS: Dicyclomine 20 MG/2 ML Vial IM (09:05)
--- NOTE | 2021-06-04 09:40 | ED.RN ---
PT CALLING OUT WITH THE CALL LIGHT SYSTEM REQUESTING SOMETHING FOR THE PAIN. IN ADDITION, THE VISITOR CAME TO THE DESK STATING THAT THE PT THINKS THAT WE FORGOT ABOUT HIM. VISITOR AND PT NOTIFIED THAT THE DR IS AWARE OF HIS REQUESTS AND WILL BE IN TO SPEAK WITH THEM SOON HE IS ABLE
--- NOTE | 2021-06-04 09:47 | ED.VIS.GI ---
HPI HPI - GI History of Present Illness Chief Complaint: Abd Pain Detail of Chief Complaint: Abdominal pain that is predominantly central and upper Informant: patient and spouse/S.O. Abdominal Pain/Flank Pain Onset: Today (Upon awakening) Context: Sudden Onset Timing: Continuous Quality: Aching, Burning and Sharp Location: - (Predominately upper and central area of most discomfort) Current Severity: Severe Maximum Severity: Severe Worsened by: Nothing Relieved by: Nothing Nausea/Vomiting/Emesis GI Symptom: Positive for Nausea Diarrhea/Melena/Hematochezia GI Symptom: Negative for Diarrhea Associated Symptoms Associated Symptoms: Negative for Dysuria, Frequency, Hematuria and Urgency Narrative Narrative: Patient is a 25-year-old male who has had abdominal pain for years. He is scheduled to see Dr. Marshall this coming week. He has been seen several times in the emergency department. He has had 2 CAT scans of the abdomen since March. CAT scans were obtained when his white count was elevated. CAT scans revealed no acute pathology. I was informed by his significant other that he has exacerbation of his gastritis due to COVID-19 infection. There is no family history of inflammatory bowel disorder or celiac's disease. He has not had a bowel movement today. He denies blood or mucus in his bowel movement. There is no complaint of fever, chills night sweats. There appears to be no alleviating or exacerbating factors. Significant other informed me that what he has been given with improvement and it is taking more and more medication for improvement. Review of records indicates Patient does use marijuana. Patient is writhing. Writhing does not appear to make the pain worse. He is tearful. He denies cardiac respiratory symptoms. He denies upper respiratory symptoms. There is no history of trauma. He denies dysuria, frequency, urgency or hematuria. He denies history of renal or ureteral lithiasis. [facility] Medical History Abdominal pain Nausea and vomiting Subclinical hypothyroidism Vitamin D deficiency Home Medications ergocalciferol (vitamin D2) 1,250 mcg (50,000 unit) capsule 50,000 unit PO QWEEK #8 cap 10/14/20 [Rx Last Taken Unknown] omeprazole 40 mg capsule,delayed release 40 mg PO DAILY #90 cap 10/14/20 [Rx Last Taken Unknown] ondansetron 4 mg disintegrating tablet 4 mg PO Q8H PRN #30 tab 10/14/20 [Rx Last Taken Unknown] ondansetron 4 mg PO Q8H PRN PRN #14 tab 05/15/21 [Rx Last Taken Unknown] levothyroxine 88 mcg PO DAILY #30 cap 06/04/21 [Rx Last Taken Unknown] Allergy/AdvReac Type Severity Reaction Status Date / Time adhesive tape Allergy Rash Verified 06/04/21 08:14 ibuprofen [From Motrin] AdvReac Upset Verified 06/04/21 08:14 Stomach Tegaderm IV Guard AdvReac Rash Uncoded 06/04/21 08:14 Family History Mother Asthma Surgical History History of appendectomy Social History household members: significant other Smoking Status: Current every day smoker tobacco type: cigarettes alcohol intake: never substance use type: marijuana ROS ROS ED Constitutional Constitutional ED: Denies chills, fever(s), subjective, sweats or weight loss ENT ENT ED: Denies ear pain, rhinorrhea or sore throat Cardiovascular Cardiovascular: Denies chest pain, palpitations or racing heartbeat Respiratory/Chest Respiratory/Chest: Denies cough, dyspnea or dyspnea on exertion Gastrointestinal Gastrointestinal: Reports abdominal pain and nausea; Denies constipation, diarrhea, melena or vomiting Genitourinary Genitourinary ED: Denies dysuria, hematuria or urinary frequency Musculoskeletal Musculoskeletal: Denies arthralgias, back pain, myalgias or neck pain Integumentary Denies rash Neurologic Neurologic: Denies headache(s), paresthesias or weakness Endocrine Endocrinology: Denies polydipsia, polyphagia or polyuria Hematologic/Lymphatic Hematologic/Lymphatic: Denies easy bleeding or easy bruising EXAM Physical Exam Const Vital Signs: 06/04/21 08:12 Temperature 97.8 F Temperature Source Temporal Pulse Rate 72 Respiratory Rate 16 Blood Pressure 136/82 H Blood Pressure Mean 100 Positive well nourished and well developed General Appearance ED: well developed and other Tearful moaning ; Negative for NAD or pallor HEENT Reports TM's clear and moist mucous membranes normocephalic and atraumatic Tympanic Membrane ED: Yes TM's clear Eyes PERRL and EOMs intact bilaterally General Eye ED: Negative for pale conjunctiva or scleral icterus Neck no lymphadenopathy, supple and no JVD Resp normal respiratory effort and clear to auscultation bilaterally Cardio regular rate, regular rhythm, S1 normal heart sound, S2 normal heart sound and no murmurs GI non-distended and no masses; Negative for non-tender Inspection: Negative for abdominal distention Auscultation: normoactive bowel sounds and hypoactive bowel sounds; Negative for hyperactive bowel sounds Palpation: soft and tender other (Patient has tenderness throughout to deep palpation and what I believe is involuntary guarding); Negative for rigid, hepatomegaly, splenomegaly, mass or rebound tenderness present Back/Spine no CVA tenderness Thoracic Spine / Upper Back: Negative for thoracic spinal tenderness Lumbar Spine / Lower Back: Negative for lumbar spinal tenderness Extremity full ROM General Extremety ED: Negative for edema General Extremity: Negative for edema Neuro CN's II-XII intact bilaterally Sensorium / Orientation: alert, oriented to person, oriented to place and oriented to time Psych Mood & Affect: tearful Skin no wounds General Skin Exam: Negative for jaundice or pallor Lesions: no lesions Rashes: no rashes MDM MDM MDM Narrative Medical decision making narrative: Patient has an inconsistent exam. Shaking of the bed or shaking of the patient's pelvis does not cause discomfort. However when I palpate deeply he has pain. Prior records were reviewed. Differential diagnosis would be abdominal pain of unknown etiology, discomfort because of marijuana use this may represent thyroid disease and she has a history of subclinical hypothyroidism and also need to entertain possibility of celiac disease. Apparently when he had episode of pain that resulted in visit several days ago he had chili. Last night he had pizza. When patient was reassessed at 0946 significant other was on phone with someone. Comments were made that were inappropriate by the person on the phone. /significant other made comments and demanded that something be done. She was informed since this has been going on for 3 years he has had 2 CAT scans and his blood work is normal again that the cause is unknown or possibly marijuana or celiac disease. When marijuana was mentioned the person on the phone and significant other is made the comment you guys want to blame it on marijuana. there is no association with marijuana use. Patient was given additional dose of morphine. Patient and significant other were informed if this does not work uncertain what else to do at this point. Patient was observed ambulating from his room to the restroom. He was in upright position. There is no limp. He is no longer moaning. Patient was reassessed at 1042. He is lying comfortably in bed. He was informed that his TSH is elevated. Will start on low-dose of levothyroxine. He was instructed to keep appointment with Dr. Marshall and keep a diary of what he eats and when he develops pain. Furthermore he was instructed to follow-up with Dr. Yoder for repeat TSH in 1 to 2 weeks. Lab Data Attestation: I reviewed the patient's lab results. Labs: Laboratory Results - last 24 hr 06/04/21 06/04/21 06/04/21 08:26 08:26 08:26 WBC 9.1 RBC 4.69 Hgb 14.4 Hct 42.0 MCV 89.6 MCH 30.7 MCHC 34.3 RDW Std Deviation 41.4 RDW Coeff of Tanya 12.7 Plt Count 264 MPV 9.9 Immature Gran % (Auto) 0.300 Neut % (Auto) 68.7 Lymph % (Auto) 22.4 Esmeralda % (Auto) 6.6 Eos % (Auto) 1.3 Baso % (Auto) 0.7 Absolute Neuts (auto) 6.2 Absolute Lymphs (auto) 2.03 Nucleated RBC % 0 Sodium 139 Potassium 3.7 Chloride 107 Carbon Dioxide 24.0 Anion Gap 8 BUN 10 Creatinine 1.05 Estim Creat Clear Calc 102.24 Est GFR (MDRD) Af Amer 108 Est GFR (MDRD) Non-Af 89 BUN/Creatinine Ratio 9.5 L Glucose 99 Calcium 10.0 Total Bilirubin 0.40 AST 20 ALT 32 Alkaline Phosphatase 83 Total Protein 8.9 H Albumin 4.4 Globulin 4.5 H Albumin/Globulin Ratio 1.0 Lipase 73 TSH 4.74 H Discharge Plan Triage Chief Complaint: Abd Pain ED Provider: Benny Stacy Dx/Rx/DC Orders Clinical Impression: Abdominal pain, Elevated TSH Instructions: Abdominal Pain, ED Hypothyroidism Prescriptions: New levothyroxine 88 mcg capsule 88 mcg PO DAILY Qty: 30 RF: 0 No Action omeprazole 40 mg capsule,delayed release(DR/EC) 40 mg PO DAILY Qty: 90 RF: 1 ondansetron 4 mg tablet,disintegrating 4 mg PO Q8H PRN (Reason: nausea and vomiting) Qty: 30 RF: 1 ondansetron 4 mg tablet,disintegrating 4 mg PO Q8H PRN PRN (Reason: Nausea) Qty: 14 RF: 0 ergocalciferol (vitamin D2) 1,250 mcg (50,000 unit) capsule 50,000 unit PO QWEEK Qty: 8 RF: 0 Primary Care Provider: Lizett Chavez Referrals: Lizett Chavez MD [Primary Care Provider] - 1-2 Weeks (Patient with abdominal pain of unknown etiology. Since TSH was elevated 88 mg of levothyroxine was prescribed. Will need repeat TSH and 1 to 2 weeks) Franco Marshall DO [STAFF PHYSICIAN] - Keep [place] appointment (Patient was instructed to keep a diary of what he eats and when he develops pain and location. Patient has an elevated TSH he was started on levothyroxine in September because of his abdominal pain. He has had prior elevated TSH levels.) Activity Restrictions/Additional Instructions: Keep a diary of what you eat and when you eat. Document when pain starts in location of pain. Share this with Dr. Marshall when you see him. Disposition Disposition: Home, Self Care
[2021-06-04] MEDS: Morphine 4 MG/ML Syringe IV (10:00)
[2021-06-04] MEDS: Metoclopramide 10 MG/2 ML Vial 5 MG IV (10:08)
[2021-06-04 10:14] LABS: Thyroid Stim Hormone (TSH) 4.74 uIU/mL (0.358-3.74)
[2021-06-04] MEDS: Mag Hydrox/Al Hydrox/Simeth 30 ML UDC PO (11:02)
[2021-06-04 11:05] VITALS: BP 120/68; PULSE 70; RESP 16; O2SAT 99
--- NOTE | 2021-06-22 16:22 | CM.ED ---
Social Work ED Care Plan approved and entered into [employer] Telephone call to patient. This social media executive introduced self and social media executive role. Patient agreeable to speak with this social media executive. Patient updated on ED Care Plan referral and process. Patient reports to be feeling much better. Patient reports to have changed my diet and this is helping with patient abdominal pain. Patient also reports to be following with Dr. Marshall and needs to reschedule the next appointment. Patient denies any further community concerns. ED Care Plan and resources mailed to patient. Tracking #[id number] Social Work to continue to follow as needed. Claudine Boateng REFUELING RAMP ATTENDANT, JANIS
== END 2021-06-04 11:06 | disposition home or self-care (01) ==
PROVIDERS: Emergency Provider Emergency Medicine; PCP Internal Medicine; Visit Provider Emergency Medicine
DX: R10.9 Unspecified abdominal pain (principal); E03.9 Hypothyroidism, unspecified; F17.210 Nicotine dependence, cigarettes, uncomplicated; F12.10 Cannabis abuse, uncomplicated
CPT/HCPCS: 83690; 99283; J2405; 84443; 80053; 85025; J7030; A4216; J3490

== ENCOUNTER 2021-06-04 15:20 | Emergency (ER) | payer BC, MEDICAID, SELFPAY ==
[2021-06-04 15:21] VITALS: BP 162/89; PULSE 61; RESP 16; TEMP 36.6; BMI 30.4
--- NOTE | 2021-06-04 16:07 | ED.VIS.GI ---
HPI HPI - GI History of Present Illness Chief Complaint: Abd Pain Informant: patient and spouse/S.O. Abdominal Pain/Flank Pain Onset: Month(s) Context: Gradual Onset Timing: Intermittent Current Severity: Moderate Maximum Severity: Moderate Worsened by: Nothing Relieved by: Nothing Nausea/Vomiting/Emesis GI Symptom: Positive for Nausea and Vomiting Onset: Today Quality: Positive for Nonbilious Severity: Mild Diarrhea/Melena/Hematochezia GI Symptom: Negative for Diarrhea, Melena and Hematochezia Associated Symptoms Associated Symptoms: Negative for Dysuria, Frequency, Hematuria and Urgency Narrative Narrative: 25-year-old male history of gastritis, chronic abdominal pain, prior appendectomy and possible hypothyroidism. Is been seen multiple times over the last 8 months. He has had 3 CAT scans in that time here all of which have been negative. He was seen earlier this morning here had a negative work-up and labs did not need any imaging. They left here 1 to [facility] in [place] they were crowded so I do not think he was seen there and came back here. He has had nausea and vomiting. No melena or hematemesis. No fever. There is no change in today's symptoms any different than what has had over the last 8 months. He has an appointment to follow-up with GI. He was on omeprazole in the past he stopped taking it. Prior similar symptoms: Yes Recent Illness/Hospitalization: No PFSH [facility] Medical History Abdominal pain Nausea and vomiting Subclinical hypothyroidism Vitamin D deficiency Home Medications ergocalciferol (vitamin D2) 1,250 mcg (50,000 unit) capsule 50,000 unit PO QWEEK #8 cap 10/14/20 [Rx Last Taken Unknown] omeprazole 40 mg capsule,delayed release 40 mg PO DAILY #90 cap 10/14/20 [Rx Last Taken Unknown] ondansetron 4 mg disintegrating tablet 4 mg PO Q8H PRN #30 tab 10/14/20 [Rx Last Taken Unknown] ondansetron 4 mg PO Q8H PRN PRN #14 tab 05/15/21 [Rx Last Taken Unknown] levothyroxine 88 mcg PO DAILY #30 cap 06/04/21 [Rx Last Taken Unknown] ondansetron 4 mg PO DAILY PRN 4 Days #10 tab 06/04/21 [Rx Last Taken Unknown] pantoprazole [Protonix] 40 mg PO DAILY #30 tab 06/04/21 [Rx Last Taken Unknown] Allergy/AdvReac Type Severity Reaction Status Date / Time adhesive tape Allergy Rash Verified 06/04/21 15:23 ibuprofen [From Motrin] AdvReac Upset Verified 06/04/21 15:23 Stomach Tegaderm IV Guard AdvReac Rash Uncoded 06/04/21 15:23 Family History Mother Asthma Surgical History History of appendectomy Social History household members: significant other Smoking Status: Current every day smoker tobacco type: cigarettes alcohol intake: never substance use type: marijuana ROS ROS ED ROS Narrative Abdominal pain with nausea and vomiting. Review of Systems ROS Unobtainable: Denies due to encephalopathy Constitutional Constitutional ED: Denies fever(s) or subjective ENT ENT ED: Denies ear pain Cardiovascular Cardiovascular: Denies chest pain or palpitations Respiratory/Chest Respiratory/Chest: Denies cough, dyspnea or sputum Gastrointestinal Gastrointestinal: Reports abdominal pain, nausea and vomiting; Denies constipation, diarrhea or melena Genitourinary Genitourinary ED: Denies dysuria Musculoskeletal Musculoskeletal: Denies myalgias Integumentary Denies rash Neurologic Neurologic: Denies headache(s) Psychiatric Psychiatric: Denies depression Endocrine Endocrinology: Denies polyuria Hematologic/Lymphatic Hematologic/Lymphatic: Denies easy bruising Allergic/Immunologic Allergic/Immunologic ED: Denies urticaria EXAM Physical Exam Narrative Exam Narrative: 25-year-old male no acute distress. Vital signs stable and afebrile. Does not look septic or toxic. H EENT exam unremarkable. Mucous membranes. Neck nontender no lymphadenopathy. Lungs clear to auscultation bilaterally. Heart regular rhythm rate about 60 no murmur. Abdomen soft. Nondistended. Normal bowel sounds. No peritoneal signs. Tender in epigastric region. No hernia or mass. No pulsatile mass. No obstruction. Moving all 4 extremities. Nontender no edema. Neurologically awake and alert. Const Vital Signs: 06/04/21 15:21 Temperature 97.9 F Temperature Source Temporal Pulse Rate 61 Respiratory Rate 16 Blood Pressure 162/89 H Blood Pressure Mean 113 Positive well nourished, well developed and obese; Negative for cachectic, contractures or unkempt General Appearance ED: well developed and NAD; Negative for unkempt, cachectic, contractures or pallor Nutritional Appearance: obese; Negative for cachectic HEENT Reports moist mucous membranes normocephalic and atraumatic; Negative for trauma or tenderness Eyes PERRL and EOMs intact bilaterally Neck no lymphadenopathy, supple and no JVD General: Negative for tenderness Resp normal respiratory effort and clear to auscultation bilaterally Auscultation: Negative for rales, rhonchi or wheezes Cardio regular rate, regular rhythm, S1 normal heart sound, S2 normal heart sound and no murmurs GI non-distended and no masses; Negative for non-tender Inspection: Negative for abdominal distention Auscultation: normoactive bowel sounds; Negative for hyperactive bowel sounds or hypoactive bowel sounds Palpation: soft and tender; Negative for guarding, rigid, hepatomegaly or rebound tenderness present Back/Spine no CVA tenderness Extremity full ROM General Extremety ED: Negative for edema or tenderness General Extremity: Negative for edema Neuro moves all extremities Sensorium / Orientation: alert, oriented to person, oriented to place and oriented to time; Negative for orientation impaired, confused, lethargic or stuporous Motor Exam: strength 5/5 throughout Psych mental status grossly normal and thought process normal Appearance: Negative for unkempt Attitude: No agitated Mood & Affect: Negative for depressed, anxious or tearful Skin no wounds General Skin Exam: Negative for jaundice or pallor Lesions: no lesions Rashes: no rashes MDM MDM MDM Narrative Medical decision making narrative: 25-year-old male history of gastritis on no home meds. Complaining of nausea and vomiting. Will treat with IV Zofran. IV Protonix. And IV fluids. He had unremarkable labs earlier today. Again this patient's had 3 CAT scans in the last 9 months all of which were unremarkable. Repeat exam at 5 PM patient does not feel significantly better. We discussed treatment options he and his significant other know that I do not feel IV narcotics is a appropriate treatment for his chronic abdominal pain as unverifiable. He was willing to try GI cocktail. Repeat exam patient doing well at 5:50 PM. He is comfortable being discharged home. He has an appointment to see the GI physician, Dr. Marshall, on June 15. Lab Data Attestation: I reviewed the patient's lab results. Lab results narrative: Reviewed the test from earlier today and prior visits. Discharge Plan Triage Chief Complaint: Abd Pain ED Provider: Shashi Conde Dx/Rx/DC Orders Clinical Impression: Abdominal pain Instructions: ED Abdominal Pain Unkn Cause Male... Prescriptions: New pantoprazole [Protonix] 40 mg tablet,delayed release (DR/EC) 40 mg PO DAILY Qty: 30 RF: 0 ondansetron 4 mg tablet,disintegrating 4 mg PO DAILY PRN (Reason: nausea and vomiting) 4 Days Qty: 10 RF: 0 No Action omeprazole 40 mg capsule,delayed release(DR/EC) 40 mg PO DAILY Qty: 90 RF: 1 ondansetron 4 mg tablet,disintegrating 4 mg PO Q8H PRN (Reason: nausea and vomiting) Qty: 30 RF: 1 ondansetron 4 mg tablet,disintegrating 4 mg PO Q8H PRN PRN (Reason: Nausea) Qty: 14 RF: 0 levothyroxine 88 mcg capsule 88 mcg PO DAILY Qty: 30 RF: 0 ergocalciferol (vitamin D2) 1,250 mcg (50,000 unit) capsule 50,000 unit PO QWEEK Qty: 8 RF: 0 Primary Care Provider: Lizett Chavez Referrals: Lizett Chavez MD [Primary Care Provider] - As Needed Franco Marshall DO [STAFF PHYSICIAN] - Keep [place] appointment Activity Restrictions/Additional Instructions: Plenty of fluids and rest. Increase diet slowly as tolerated. No spicy foods. No alcohol. Avoid nonsteroidal anti-inflammatory medications. Take your daily Protonix. Zofran as needed for nausea. Follow-up with your GI appointment. Disposition Disposition: Home, Self Care
[2021-06-04] MEDS: 0.9% Normal Saline 1,000 ML 999 ML IV (16:16)
[2021-06-04] MEDS: Ondansetron 4 MG/2 ML Vial IV (16:16)
--- NOTE | 2021-06-04 16:19 | ED.RN ---
pt resting with eyes closed, not communicating with the RN when asked questions. pt has been laying still and quiet when this RN is in the room. girlfriend answers questions for him.
--- NOTE | 2021-06-04 17:34 | ED.RN ---
pt refusing gi cocktail, stating by the girlfriend it's not going to work.
--- NOTE | 2021-06-04 19:45 | CM.ED ---
SW Note MD Stacy requested that SW contact Dr. Marshall to determine if patient has an etiology of pain. ARACELI sent email to Dr. Marshall. Plan: To be determined Dixie PARSON
== END 2021-06-04 18:17 | disposition home or self-care (01) ==
PROVIDERS: Emergency Provider Emergency Medicine; PCP Internal Medicine; Visit Provider Emergency Medicine
DX: R10.9 Unspecified abdominal pain (principal); F17.210 Nicotine dependence, cigarettes, uncomplicated; F12.10 Cannabis abuse, uncomplicated; E66.9 Obesity, unspecified; E03.9 Hypothyroidism, unspecified
CPT/HCPCS: 80053; 83690; 84443; 85025; 96365; 96372; 96375; 96376; 99283; J7030; A4216; J2405; J3490

== ENCOUNTER 2021-07-18 20:06 | Emergency (ER) | payer BC, MEDICAID, SELFPAY ==
[2021-07-18 20:07] VITALS: BP 149/100; PULSE 75; RESP 16; TEMP 36.9; O2SAT 100; BMI 29.6
[2021-07-18] MEDS: Ondansetron ODT 4 MG Tablet 8 MG PO (20:55)
[2021-07-18] MEDS: Mag Hydrox/Al Hydrox/Simeth 30 ML UDC PO (21:04)
--- NOTE | 2021-07-18 21:04 | EX.ED.DYSGE1 ---
HPI History of Present Illness Chief Complaint: Abd Pain Informant: patient and spouse/S.O. Narrative Narrative: Patient states he is having exacerbation of his gastritis. He is taking his omeprazole religiously. He is out of Zofran. His significant other verifies this. She states every time he is here he is treated like a drug addict. They are very mad and upset initially. They came in with a very large group of patients. I had looked at his chart so I initiated a work-up which they did not want. When I saw the patient he just wanted Zofran and a GI cocktail. He states he wants nothing else. And when I was leaving the room his girlfriend stated he should have an IV with fluids. I stated I would do that if that is what they want we will try to help. I then left the room and they came and got me and said he no longer wants the IV fluids. At that point I said I am also happy not to do it. At this point, it seems like they do not want a work-up. They do not want any IVs. They do not want any lab testing or imaging. They want Zofran and a GI cocktail only. [facility] Medical History Abdominal pain Nausea and vomiting Subclinical hypothyroidism Vitamin D deficiency Home Medications ergocalciferol (vitamin D2) 1,250 mcg (50,000 unit) capsule 50,000 unit PO QWEEK #8 cap 10/14/20 [Rx Last Taken Unknown] omeprazole 40 mg capsule,delayed release 40 mg PO DAILY #90 cap 10/14/20 [Rx Last Taken Unknown] ondansetron 4 mg disintegrating tablet 4 mg PO Q8H PRN #30 tab 10/14/20 [Rx Last Taken Unknown] ondansetron 4 mg PO Q8H PRN PRN #14 tab 05/15/21 [Rx Last Taken Unknown] levothyroxine 88 mcg PO DAILY #30 cap 06/04/21 [Rx Last Taken Unknown] ondansetron 4 mg PO DAILY PRN 4 Days #10 tab 06/04/21 [Rx Last Taken Unknown] pantoprazole [Protonix] 40 mg PO DAILY #30 tab 06/04/21 [Rx Last Taken Unknown] ondansetron 4 mg PO Q8H PRN #20 tab 03/07/22 [Rx Last Taken Unknown] Allergy/AdvReac Type Severity Reaction Status Date / Time adhesive tape Allergy Rash Verified 06/04/21 15:23 ibuprofen [From Motrin] AdvReac Upset Verified 06/04/21 15:23 Stomach Tegaderm IV Guard AdvReac Rash Uncoded 06/04/21 15:23 Family History Mother Asthma Surgical History History of appendectomy Social History household members: significant other Smoking Status: Current every day smoker tobacco type: cigarettes alcohol intake: never substance use type: marijuana ROS ROS ED Constitutional Constitutional ED: Denies chills or fever(s) ENT ENT ED: Denies rhinorrhea Cardiovascular Cardiovascular: Denies chest pain Respiratory/Chest Respiratory/Chest: Denies cough or dyspnea Gastrointestinal Gastrointestinal: Reports abdominal pain, nausea and vomiting; Denies constipation, diarrhea or melena Genitourinary Genitourinary ED: Denies dysuria Musculoskeletal Musculoskeletal: Denies myalgias Integumentary Denies rash Neurologic Neurologic: Denies headache(s) Endocrine Endocrinology: Denies polydipsia or polyuria Allergic/Immunologic Allergic/Immunologic ED: Denies urticaria EXAM Physical Exam Const Vital Signs: 07/18/21 20:07 07/18/21 22:07 Temperature 98.4 F Temperature Source Temporal Pulse Rate 75 Respiratory Rate 16 18 Blood Pressure 149/100 H Blood Pressure Mean 116 Pulse Ox 100 Oxygen Delivery Method Room Air Room Air Positive well nourished and well developed General Appearance ED: well developed; Negative for cyanotic or diaphoretic HEENT Reports moist mucous membranes Eyes General Eye ED: Negative for pale conjunctiva or scleral icterus Neck no JVD Chest Wall inspection of chest normal Resp normal respiratory effort and clear to auscultation bilaterally Cardio regular rate and regular rhythm GI normal to inspection, nondistended, normoactive bowel sounds GI Narrative: Patient abdomen and is flat, not distended. Bowel sounds are normal. He has mild tenderness mostly in the epigastric area. No rebound or guarding. He states his abdomen hurts regardless of pressing on it or not. Palpation: soft Back/Spine no CVA tenderness Extremity normal to inspection General Extremety ED: Negative for edema or tenderness General Extremity: Negative for edema Neuro Sensorium / Orientation: alert Psych mental status grossly normal Skin no rashes or lesions noted MDM MDM MDM Narrative Medical decision making narrative: Originally, we are going to pursue a work-up. Patient did not want this done. We did give Zofran and Grasshopper/GI cocktail as requested. He one of them at the same time. The GI cocktail was thrown up. However, we have rechecked him after period of time. He looks much Col[place]. He is relaxed. The nausea is gone. He does not want a second GI cocktail as he feels better. Abdomen is benign. I will write him a prescription for Zofran. I encouraged him to recall Dr. Marshall for a repeat appointment. Return if he has pain, recurrent vomiting fevers or other concerns. Discharge Plan Triage Chief Complaint: Abd Pain ED Provider: Alex Avelar Dx/Rx/DC Orders Clinical Impression: Abdominal pain, Gastritis, Nausea & vomiting Instructions: Abdominal Pain, ED Gastritis (Adult) Prescriptions: New ondansetron 4 mg tablet,disintegrating 4 mg PO Q8H PRN (Reason: nausea and vomiting) Qty: 20 RF: 0 No Action omeprazole 40 mg capsule,delayed release(DR/EC) 40 mg PO DAILY Qty: 90 RF: 1 ondansetron 4 mg tablet,disintegrating 4 mg PO Q8H PRN (Reason: nausea and vomiting) Qty: 30 RF: 1 ondansetron 4 mg tablet,disintegrating 4 mg PO Q8H PRN PRN (Reason: Nausea) Qty: 14 RF: 0 levothyroxine 88 mcg capsule 88 mcg PO DAILY Qty: 30 RF: 0 pantoprazole [Protonix] 40 mg tablet,delayed release (DR/EC) 40 mg PO DAILY Qty: 30 RF: 0 ondansetron 4 mg tablet,disintegrating 4 mg PO DAILY PRN (Reason: nausea and vomiting) 4 Days Qty: 10 RF: 0 ergocalciferol (vitamin D2) 1,250 mcg (50,000 unit) capsule 50,000 unit PO QWEEK Qty: 8 RF: 0 Primary Care Provider: Lizett Chavez Referrals: Lizett Chavez MD [Primary Care Provider] - As Needed Audelia Marshalln, DO [STAFF PHYSICIAN] - As soon as possible Disposition Disposition: Home, Self Care
--- NOTE | 2021-07-18 21:25 | NURSING ---
md aware Pt vomited up his gi cocktail. no orders at this time
--- NOTE | 2021-07-18 22:05 | NURSING ---
checked on pt and pt calm at this time
[2021-07-18 22:07] VITALS: RESP 18
== END 2021-07-18 23:31 | disposition home or self-care (01) ==
PROVIDERS: Emergency Provider Emergency Medicine; PCP Internal Medicine; Visit Provider Emergency Medicine
DX: K29.70 Gastritis, unspecified, without bleeding (principal); R11.2 Nausea with vomiting, unspecified; F12.90 Cannabis use, unspecified, uncomplicated; F17.210 Nicotine dependence, cigarettes, uncomplicated
CPT/HCPCS: 99283

== ENCOUNTER 2021-07-19 02:05 | Emergency (ER) | payer BC, MEDICAID, SELFPAY ==
[2021-07-19 02:06] VITALS: BP 163/84; PULSE 61; RESP 18; TEMP 36.4; O2SAT 100; BMI 30.8
--- NOTE | 2021-07-19 02:41 | EDS_ITS ---
HPI HPI - GI History of Present Illness Chief Complaint: Abd Pain Narrative Narrative: 26-year-old male with history of gastritis and nausea and vomiting presenting with a flareup of both. He states this morning he ate a baconater for breakfast and since that time has had cramping in his abdomen and nausea and vomiting. He was seen earlier this evening given a GI cocktail as well as Zofran. On reevaluation he had appeared to be pain-free and nausea free. He was discharged with a prescription of Zofran and he did not fill this because it was too late in the evening. He reports that he is still having nausea/vomiting as well as abdominal cramping. Has not had a fever. He does state that he has had some diarrhea which is new. No urinary complaints. PFSH [facility] Medical History Abdominal pain Nausea and vomiting Subclinical hypothyroidism Vitamin D deficiency Home Medications ondansetron 4 mg PO Q8H PRN PRN #14 tab 05/15/21 [Rx Last Taken Unknown] ergocalciferol (vitamin D2) 2,000 unit PO QWEEK 07/19/21 [History Last Taken Unknown] sucralfate [Carafate] 10 ml PO BID PRN #200 ml 07/19/21 [Rx Last Taken Unknown] Allergy/AdvReac Type Severity Reaction Status Date / Time adhesive tape Allergy Rash Verified 07/19/21 02:12 ibuprofen [From Motrin] AdvReac Upset Verified 07/19/21 02:12 Stomach Tegaderm IV Guard AdvReac Rash Uncoded 07/19/21 02:12 Family History Mother Asthma Surgical History History of appendectomy Social History household members: significant other Smoking Status: Current every day smoker tobacco type: cigarettes alcohol intake: never substance use type: marijuana ROS ROS ED Constitutional Constitutional ED: Denies chills or fever(s) ENT ENT ED: Denies rhinorrhea Cardiovascular Cardiovascular: Denies chest pain or palpitations Respiratory/Chest Respiratory/Chest: Denies cough or dyspnea Gastrointestinal Gastrointestinal: Reports abdominal pain, diarrhea, nausea and vomiting Genitourinary Genitourinary ED: Denies dysuria or hematuria Musculoskeletal Musculoskeletal: Denies arthralgias or myalgias Integumentary Denies rash Neurologic Neurologic: Denies headache(s) or paresthesias Psychiatric Psychiatric: Denies anxiety or depression EXAM Physical Exam Const Vital Signs: 07/19/21 02:06 07/19/21 03:46 Temperature 97.6 F L Temperature Source Temporal Pulse Rate 61 64 Respiratory Rate 18 18 Blood Pressure 163/84 H 156/87 H Blood Pressure Mean 110 110 Pulse Ox 100 98 Oxygen Delivery Method Room Air Room Air Positive well nourished General Appearance ED: NAD HEENT normocephalic and atraumatic Eyes PERRL and EOMs intact bilaterally General Eye ED: Negative for pale conjunctiva or scleral icterus Neck no lymphadenopathy and supple Resp normal respiratory effort and clear to auscultation bilaterally GI Palpation: soft Back/Spine no CVA tenderness Neuro CN's II-XII intact bilaterally and moves all extremities Sensorium / Orientation: alert, oriented to person, oriented to place and oriented to time Motor Exam: strength 5/5 throughout MDM MDM MDM Narrative Medical decision making narrative: Patient initially seen for abdominal pain, nausea, vomiting. He is concerned for gastritis but does not speak very much. His significant other does give most of the history. She states she was unsatisfied with her previous visit while simultaneously saying that his symptoms improved with Zofran and the GI cocktail. At that point he wanted to be discharged because he was symptom-free and had been in the ER for a while. Patient returns with nausea and vomiting and this time was amenable to IV fluids. He was initially given Haldol 2 mg IV as well as Bentyl IM. On reevaluation the patient was stating that he was still having nausea and was given Pepcid IV as well as Zofran IV. Patient states he is feeling mildly improved. He has not vomited. His girlfriend did have questions about his care plan and we discussed this at length. Patient states that he just wants to go home and lay in bed. His vital signs are normal. His lab work is normal. He has not been vomiting since he has been here. I feel this is reasonable. 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 Also also send him in some Carafate as he is already on a PPI. Patient again is counseled to follow-up with Dr. Marshall. Impression: 1. Abdominal pain 2. Nausea/vomiting Lab Data Attestation: I reviewed the patient's lab results. Labs: Laboratory Results - last 24 hr 07/19/21 07/19/21 02:15 02:15 WBC 10.5 RBC 4.81 Hgb 15.1 Hct 43.5 MCV 90.4 MCH 31.4 MCHC 34.7 RDW Std Deviation 40.5 RDW Coeff of Tanya 12.2 Plt Count 296 MPV 10.4 Immature Gran % (Auto) 0.200 Neut % (Auto) 81.9 H Lymph % (Auto) 13.1 L [place] % (Auto) 4.4 Eos % (Auto) 0.1 Baso % (Auto) 0.3 Absolute Neuts (auto) 8.6 H Absolute Lymphs (auto) 1.38 Nucleated RBC % 0 Sodium 139 Potassium 4.2 Chloride 112 H Carbon Dioxide 22.0 Anion Gap 5 BUN 7 Creatinine 1.02 Estim Creat Clear Calc 104.31 Est GFR (MDRD) Af Amer 112 Est GFR (MDRD) Non-Af 92 BUN/Creatinine Ratio 6.9 L Glucose 116 H Calcium 10.0 Total Bilirubin 0.30 AST 21 ALT 36 Alkaline Phosphatase 74 Total Protein 8.3 H Albumin 4.4 Globulin 3.9 Albumin/Globulin Ratio 1.1 Lipase 55 L Discharge Plan Triage Chief Complaint: Abd Pain ED Provider: Shilo Olmedo Dx/Rx/DC Orders Instructions: ED PEPTIC ULCER vs GASTRITIS Prescriptions: New sucralfate [Carafate] 100 mg/mL suspension 10 ml PO BID PRN (Reason: acid reflux) Qty: 200 RF: 0 No Action ondansetron 4 mg tablet,disintegrating 4 mg PO Q8H PRN PRN (Reason: Nausea) Qty: 14 RF: 0 ergocalciferol (vitamin D2) 1,250 mcg (50,000 unit) capsule 2,000 unit PO QWEEK RF: 0 Primary Care Provider: Lizett Chavez Referrals: Lizett Chavez MD [Primary Care Provider] - Disposition Disposition: Home, Self Care
[2021-07-19 02:49] LABS: Absolute Lymphocyte Count 1.38 X10^3/uL (0.83-4.51); Absolute Neutrophil Count 8.6 X10^3/uL (2.0-7.7); Basophil# 0.03 X10^3/uL; Basophil% 0.3 % (0-1); Eosinophil# 0.01 X10^3/uL; Eosinophils% 0.1 % (0-5); Hematocrit 43.5 % (40-54); Hemoglobin 15.1 g/dL (13.0-16.5); Lymphocyte # 1.38 X10^3/ul (0.83-4.51); Lymphocyte % 13.1 % (19-41); Mean Corp Hgb Conc 34.7 g/dL (32-36); Mean Corpuscular Hgb 31.4 pg (27.0-32.0); Mean Corpuscular Volume 90.4 fL (80-94); Mean Platelet Vol. 10.4 fl (6.2-12.0); Monocyte# 0.46 X10^3/uL; Monocyte% 4.4 % (0-10); NRBC Flagged by Analyzer 0 % (0-5); Neutrophil % 81.9 % (47-70); Platelet Count 296 K/mm3 (150-450); RBC Distribution Width CV 12.2 % (11.6-14.6); RBC Distribution Width SD 40.5 fl (35.1-43.9); Red Blood Count 4.81 M/mm3 (4.6-6.2); White Blood Count 10.5 K/mm3 (4.4-11.0)
[2021-07-19] MEDS: 0.9% Normal Saline 1,000 ML 1000 ML IV (02:49)
[2021-07-19] MEDS: Haloperidol Lactate 5 MG/ML Vial 2 MG IV (02:49)
[2021-07-19] MEDS: Dicyclomine 20 MG/2 ML Vial IM (02:56)
[2021-07-19 03:01] LABS: ALB/GLOB Ratio 1.1 RATIO (0.9-2.4); AST(SGOT) 21 U/L (15-37); Alanine Aminotransfer ALT/SGPT 36 U/L (16-61); Albumin, Serum 4.4 g/dL (3.2-5.0); Alkaline Phosphatase 74 U/L (45-117); Anion Gap 5 (5-15); BUN 7 mg/dL (7-18); BUN/Creat Ratio 6.9 RATIO (10-20); Chloride 112 mmol/L (98-107); Creatinine, Serum 1.02 mg/dL (0.70-1.30); EST Glomerular Filtration Rate 92 mL/min (>60); Est Glom Filt Rate - Afr Amer 112 mL/min (>60); Estimated Creatinine Clearance 104.31 ml/min; Globulin 3.9 g/dL (2.2-4.2); Glucose 116 mg/dL (74-106); Lipase 55 U/L (73-393); Potassium 4.2 mmol/L (3.5-5.1); Protein, Total 8.3 g/dL (6.4-8.2); Sodium Level 139 mmol/L (136-145)
[2021-07-19] MEDS: Ondansetron 4 MG/2 ML Vial IV (03:33)
[2021-07-19] MEDS: Famotidine 200 MG/20 ML MDV 20 MG in 0.9% Normal Saline (Pres. free 8 ML 300 MG IV (03:45)
[2021-07-19 03:46] VITALS: BP 156/87; PULSE 64; RESP 18; O2SAT 98
== END 2021-07-19 04:08 | disposition home or self-care (01) ==
PROVIDERS: Emergency Provider Student in an Organized Health Care Education/Training Program; PCP Internal Medicine; Visit Provider Student in an Organized Health Care Education/Training Program
DX: R10.9 Unspecified abdominal pain (principal); R11.2 Nausea with vomiting, unspecified; F12.90 Cannabis use, unspecified, uncomplicated; F17.210 Nicotine dependence, cigarettes, uncomplicated; E55.9 Vitamin D deficiency, unspecified; Z79.899 Other long term (current) drug therapy
CPT/HCPCS: 80053; 83690; 85025; 96361; 96372; 96374; 96375; 99284; A4216; J2405; J3490

== ENCOUNTER 2021-09-01 23:10 | Emergency (ER) | payer MEDICAID, SELFPAY ==
[2021-09-01 23:12] VITALS: BP 166/86; PULSE 78; RESP 35; TEMP 36.2; O2SAT 100; BMI 32.2
--- NOTE | 2021-09-01 23:29 | EX.ED.DYSGE1 ---
HPI History of Present Illness Chief Complaint: Nausea/Vomiting Informant: patient and spouse/S.O. Onset/Context/Timing Onset: Today Context: Gradual Onset Current Severity: Moderate Maximum Severity: Severe Narrative Narrative: Patient presents via EMS secondary to epigastric abdominal pain with vomiting. He has a history of recurrent gastritis. Significant other states patient started developing epigastric abdominal pain this evening followed by vomiting. He recently has been out of his sucralfate and has been trying to wean himself off of omeprazole. She states he is only taken it a couple times this week. He is scheduled to see Dr. Marshall this coming week as his previous appointment had been canceled by the office. [facility] Medical History Abdominal pain Nausea and vomiting Subclinical hypothyroidism Vitamin D deficiency Home Medications ondansetron 4 mg PO Q8H PRN PRN #14 tab 05/15/21 [Rx Last Taken Unknown] ergocalciferol (vitamin D2) 2,000 unit PO QWEEK 07/19/21 [History Last Taken Unknown] omeprazole 40 mg PO DAILY 28 Days #28 cap 09/02/21 [Rx Last Taken Unknown] ondansetron 4 mg PO Q8H PRN #10 tab 09/02/21 [Rx Last Taken Unknown] sucralfate 1 g PO BID #30 tab 09/02/21 [Rx Last Taken Unknown] Allergy/AdvReac Type Severity Reaction Status Date / Time adhesive tape Allergy Rash Verified 07/19/21 02:12 ibuprofen [From Motrin] AdvReac Upset Verified 07/19/21 02:12 Stomach Tegaderm IV Guard AdvReac Rash Uncoded 07/19/21 02:12 Family History Mother Asthma Surgical History History of appendectomy Social History household members: significant other Smoking Status: Current every day smoker tobacco type: cigarettes alcohol intake: never substance use type: marijuana ROS ROS ED Constitutional Constitutional ED: Denies chills or fever(s) Eyes Eyes: Denies change in vision ENT ENT ED: Denies sore throat Cardiovascular Cardiovascular: Denies chest pain Respiratory/Chest Respiratory/Chest: Denies cough or dyspnea Gastrointestinal Gastrointestinal: Reports abdominal pain, nausea and vomiting; Denies diarrhea Genitourinary Genitourinary ED: Denies dysuria Musculoskeletal Musculoskeletal: Denies back pain Integumentary Denies rash Neurologic Neurologic: Denies weakness Psychiatric Psychiatric: Reports anxiety Allergic/Immunologic Allergic/Immunologic ED: Denies urticaria EXAM Physical Exam Const Vital Signs: 09/01/21 23:12 Temperature 97.2 F L Temperature Source Temporal Pulse Rate 78 Respiratory Rate 35 H Blood Pressure 166/86 H Blood Pressure Mean 112 Pulse Ox 100 Oxygen Delivery Method Room Air Positive well nourished and well developed General Appearance ED: well developed HEENT Reports moist mucous membranes Eyes PERRL and EOMs intact bilaterally Neck no lymphadenopathy and supple Chest Wall inspection of chest normal and palpation of chest normal Resp normal respiratory effort and clear to auscultation bilaterally Cardio regular rate and regular rhythm GI Auscultation: hypoactive bowel sounds Palpation: soft and tender epigastric; Negative for guarding or rebound tenderness present Extremity normal to inspection Neuro Neuro Narrative: Resting with eyes closed. Moans on exam. Moves all 4 extremities. Skin no rashes or lesions noted MDM MDM MDM Narrative Medical decision making narrative: Patient is given IV fluids along with morphine, Zofran, Protonix, Bentyl. Lab work obtained. Previous evaluations reviewed. Patient has had 3 CT scans in the last year that were unremarkable. He had upper and lower endoscopy performed a year ago that revealed reflux esophagitis. Small hiatal hernia was noted. Lab Data Attestation: I reviewed the patient's lab results. Labs: Laboratory Results - last 24 hr 09/01/21 09/01/21 23:25 23:25 WBC 12.0 H RBC 4.61 Hgb 14.2 Hct 41.6 MCV 90.2 MCH 30.8 MCHC 34.1 RDW Std Deviation 41.5 RDW Coeff of Tanya 12.6 Plt Count 290 MPV 10.1 Immature Gran % (Auto) 1.100 H Neut % (Auto) 84.4 H Lymph % (Auto) 10.6 L [place] % (Auto) 3.4 Eos % (Auto) 0.1 Baso % (Auto) 0.4 Absolute Neuts (auto) 10.1 H Absolute Lymphs (auto) 1.28 Nucleated RBC % 0 Sodium 139 Potassium 3.4 L Chloride 108 H Carbon Dioxide 22.0 Anion Gap 9 BUN 11 Creatinine 1.07 Estim Creat Clear Calc 99.44 Est GFR (MDRD) Af Amer 106 Est GFR (MDRD) Non-Af 87 BUN/Creatinine Ratio 10.3 Glucose 121 H Calcium 9.7 Total Bilirubin 0.40 Direct Bilirubin 0.14 AST 23 ALT 33 Alkaline Phosphatase 75 Total Protein 8.6 H Albumin 4.5 Globulin 4.1 Lipase 74 Treatment and Re-Evaluation Narrative: On repeat evaluation patient resting comfortably. He does report some improvement in his symptoms. Lab work is largely unremarkable at this time. Mild elevation of white count at 12 likely secondary to vomiting. Potassium minimally low at 3.4. Renal function normal. LFTs and lipase normal. At this time patient be given prescriptions for Zofran, Prilosec, sucralfate. He is to follow-up with Dr. Marshall this coming week as scheduled. Discharge Plan Triage Chief Complaint: Nausea/Vomiting ED Provider: Fely Mendoza Dx/Rx/DC Orders Clinical Impression: Gastritis Instructions: ED Gastritis (Adult) Prescriptions: New ondansetron 4 mg tablet,disintegrating 4 mg PO Q8H PRN (Reason: nausea and vomiting) Qty: 10 RF: 0 omeprazole 40 mg capsule,delayed release(DR/EC) 40 mg PO DAILY 28 Days Qty: 28 RF: 0 sucralfate 1 gram tablet 1 g PO BID Qty: 30 RF: 0 No Action ondansetron 4 mg tablet,disintegrating 4 mg PO Q8H PRN PRN (Reason: Nausea) Qty: 14 RF: 0 ergocalciferol (vitamin D2) 1,250 mcg (50,000 unit) capsule 2,000 unit PO QWEEK RF: 0 Primary Care Provider: Lizett Chavez Referrals: Lizett Chavez MD [Primary Care Provider] - Franco Marshall DO [STAFF PHYSICIAN] - Keep [facility] appointment Disposition Disposition: Home, Self Care
[2021-09-01 23:39] LABS: Absolute Lymphocyte Count 1.28 X10^3/uL (0.83-4.51); Absolute Neutrophil Count 10.1 X10^3/uL (2.0-7.7); Basophil# 0.05 X10^3/uL; Basophil% 0.4 % (0-1); Eosinophil# 0.01 X10^3/uL; Eosinophils% 0.1 % (0-5); Hematocrit 41.6 % (40-54); Hemoglobin 14.2 g/dL (13.0-16.5); Lymphocyte # 1.28 X10^3/ul (0.83-4.51); Lymphocyte % 10.6 % (19-41); Mean Corp Hgb Conc 34.1 g/dL (32-36); Mean Corpuscular Hgb 30.8 pg (27.0-32.0); Mean Corpuscular Volume 90.2 fL (80-94); Mean Platelet Vol. 10.1 fl (6.2-12.0); Monocyte# 0.41 X10^3/uL; Monocyte% 3.4 % (0-10); NRBC Flagged by Analyzer 0 % (0-5); Neutrophil # 10.14 X10^3/uL (2.7-7.7); Neutrophil % 84.4 % (47-70); Platelet Count 290 K/mm3 (150-450); RBC Distribution Width CV 12.6 % (11.6-14.6); RBC Distribution Width SD 41.5 fl (35.1-43.9); Red Blood Count 4.61 M/mm3 (4.6-6.2)
[2021-09-01] MEDS: Dicyclomine 20 MG/2 ML Vial IM (23:45)
[2021-09-01] MEDS: 0.9% Normal Saline 1,000 ML 1000 ML IV (23:45)
[2021-09-01] MEDS: Morphine 4 MG/ML Syringe IV (23:45)
[2021-09-01] MEDS: Ondansetron 4 MG/2 ML Vial IV (23:45)
[2021-09-01 23:51] LABS: AST(SGOT) 23 U/L (15-37); Alanine Aminotransfer ALT/SGPT 33 U/L (16-61); Albumin, Serum 4.5 g/dL (3.2-5.0); Alkaline Phosphatase 75 U/L (45-117); Anion Gap 9 (5-15); BUN 11 mg/dL (7-18); BUN/Creat Ratio 10.3 RATIO (10-20); Bilirubin, Direct 0.14 mg/dL (0.00-0.30); Calcium,Total 9.7 mg/dL (8.5-10.1); Chloride 108 mmol/L (98-107); Creatinine, Serum 1.07 mg/dL (0.70-1.30); EST Glomerular Filtration Rate 87 mL/min (>60); Est Glom Filt Rate - Afr Amer 106 mL/min (>60); Estimated Creatinine Clearance 99.44 ml/min; Globulin 4.1 g/dL (2.2-4.2); Glucose 121 mg/dL (74-106); Lipase 74 U/L (73-393); Potassium 3.4 mmol/L (3.5-5.1); Protein, Total 8.6 g/dL (6.4-8.2); Sodium Level 139 mmol/L (136-145)
[2021-09-02] MEDS: proMETHazine 25 MG/ML Syringe 12.5 MG IM (01:13)
[2021-09-02 01:17] VITALS: BP 159/88; PULSE 82; RESP 18; O2SAT 100
== END 2021-09-02 01:18 | disposition home or self-care (01) ==
PROVIDERS: Emergency Provider Emergency Medicine; PCP Internal Medicine; Visit Provider Emergency Medicine
DX: K29.70 Gastritis, unspecified, without bleeding (principal); F12.90 Cannabis use, unspecified, uncomplicated; F17.210 Nicotine dependence, cigarettes, uncomplicated
CPT/HCPCS: 80048; 80076; 83690; 85025; 96365; 96372; 96375; 99285; J7030; A4216; J2405

== ENCOUNTER 2021-09-04 09:57 | Emergency (ER) | payer MEDICAID, SELFPAY ==
[2021-09-04 09:57] VITALS: BP 152/104; PULSE 97; RESP 22; TEMP 36.3; O2SAT 100; BMI 28.8
--- NOTE | 2021-09-04 10:45 | ED.VIS.GI ---
HPI HPI - GI History of Present Illness Chief Complaint: Abd Pain Informant: patient and spouse/S.O. Abdominal Pain/Flank Pain Onset: Hours (several) Context: Gradual Onset Timing: Continuous Quality: Aching Location: Diffuse Current Severity: Severe Maximum Severity: Severe Worsened by: - (vomiting) Relieved by: Nothing (tried his zofran) Nausea/Vomiting/Emesis GI Symptom: Positive for Nausea and Vomiting Onset: Today Quality: Negative for Blood streaks, Coffee ground and Hematemesis Severity: Severe Diarrhea/Melena/Hematochezia GI Symptom: Negative for Diarrhea, Melena and Hematochezia Associated Symptoms Associated Symptoms: Negative for Dysuria, Frequency and Hematuria Narrative Narrative: Patient presenting with similar symptoms that he has had recurrently in the past and has multiple ED visits for. States his gastritis is acting up. Patient provides little history and arrives by EMS because he is so ill for the last hour or 2. He was here 2 days ago for the same thing. Significant other provides most of the history. She states yesterday he did better, he ate chicken last night and was fine, he had a little something to eat this morning and at some point after that he started having more upper/periumbilical abdominal pain, followed by vomiting, no blood. PFSH [facility] Medical History Abdominal pain Nausea and vomiting Subclinical hypothyroidism Vitamin D deficiency Home Medications omeprazole 40 mg PO DAILY 28 Days #28 cap 09/02/21 [Rx Last Taken Unknown] ondansetron 4 mg PO Q8H PRN #10 tab 09/02/21 [Rx Last Taken Unknown] sucralfate 1 g PO BID #30 tab 09/02/21 [Rx Last Taken Unknown] cholecalciferol (vitamin D3) 100 mcg PO DAILY 09/04/21 [History Last Taken Unknown] Allergy/AdvReac Type Severity Reaction Status Date / Time adhesive tape Allergy Rash Verified 09/04/21 09:59 ibuprofen [From Motrin] AdvReac Upset Verified 09/04/21 09:59 Stomach Tegaderm IV Guard AdvReac Rash Uncoded 09/04/21 09:59 Family History Mother Asthma Surgical History History of appendectomy Social History household members: significant other Smoking Status: Current every day smoker tobacco type: cigarettes alcohol intake: never substance use type: marijuana ROS ROS ED Constitutional Constitutional ED: Denies chills or fever(s) Eyes Eyes: Denies change in vision or diplopia ENT ENT ED: Denies rhinorrhea or sore throat Cardiovascular Cardiovascular: Denies chest pain or palpitations Respiratory/Chest Respiratory/Chest: Denies cough or dyspnea Gastrointestinal Gastrointestinal: Reports abdominal pain, nausea and vomiting; Denies diarrhea Genitourinary Genitourinary ED: Denies dysuria or hematuria Musculoskeletal Musculoskeletal: Denies back pain or neck pain Integumentary Denies abscess or rash Neurologic Neurologic: Denies headache(s), paresthesias or weakness Psychiatric Psychiatric: Denies anxiety or suicidal thoughts EXAM Physical Exam Const Vital Signs: 09/04/21 09:57 09/04/21 12:24 09/04/21 14:08 Temperature 97.4 F L 98.1 F 98.6 F Temperature Source Temporal Oral Oral Pulse Rate 97 69 72 Respiratory Rate 22 H 18 16 Blood Pressure 152/104 H 155/90 H 161/92 H Blood Pressure Mean 120 111 115 Pulse Ox 100 99 100 Oxygen Delivery Method Room Air Room Air Room Air 09/04/21 16:11 Temperature Temperature Source Pulse Rate 84 Respiratory Rate 12 Blood Pressure 156/94 H Blood Pressure Mean 114 Pulse Ox 99 Oxygen Delivery Method Room Air Positive well nourished and well developed Constitutional Narrative: Somnolent but follows commands, very quiet one-word answers appears to not feel well but no distress General Appearance ED: well developed HEENT Reports moist mucous membranes normocephalic and atraumatic Eyes PERRL and EOMs intact bilaterally Neck full ROM and supple Resp normal respiratory effort and clear to auscultation bilaterally Cardio regular rate, regular rhythm and no murmurs GI non-distended GI Narrative: Diffusely tender with voluntary guarding on the part of the patient. Nondistended with normal bowel sounds present. No rebound tenderness noted. Seems to be the worst in the epigastrium and left upper quadrant. Auscultation: normoactive bowel sounds Palpation: soft Back/Spine no CVA tenderness General Back: other FROM Extremity normal to inspection General Extremety ED: Negative for edema, pulses abnormal or tenderness General Extremity: Negative for edema or pulses abnormal Neuro oriented x3, CN's II-XII intact bilaterally and no sensory deficits noted Sensorium / Orientation: awake and alert Motor Exam: strength 5/5 throughout Skin no rashes or lesions noted and no wounds MDM MDM MDM Narrative Medical decision making narrative: Repeated the patient's labs, his potassium is now lower at 3.1, he does hyperventilate quite a bit and admits to lots of anxiety and specifically wants treatment for anxiety in addition to his other symptoms, and it is possible that this is partially due to shift due to respiratory alkalosis from hyperventilation, but I do think it is deserving of treatment since he has been vomiting and it could be related to GI loss as well. He was treated with Reglan, Bentyl, Zofran, and eventually went to get tolerated a GI cocktail. Most of the time this patient is here, GI cocktail takes care of his pain and feels much better and wants to go home, but it did not take his pain away this time and only helped a little. States the pain comes back and it makes him have severe anxiety and it seems to cause a spiral. This syndrome which has been studied on CT multiple times here and is always been negative for anything acute, suggest the possibility of cyclic vomiting syndrome. He has not been diagnosed with this to my knowledge. He does follow with GI. I am additionally treating him with Ativan and Thorazine to try to help his symptoms, as he is asking for something more for anxiety as well as nausea. Prior to giving him the Thorazine, I did get a rhythm strip to measure his QT which is within normal limits. After this and getting IV potassium, patient felt much better and was able to drink oral fluids and requesting discharge home. I discussed him with Dr. Marshall with whom he follows, advised to follow-up as scheduled or sooner if he is able. Lab Data Attestation: I reviewed the patient's lab results. Labs: Laboratory Results - last 24 hr 09/04/21 09/04/21 09/04/21 10:40 10:40 12:21 WBC 13.5 H RBC 4.85 Hgb 15.1 Hct 43.8 MCV 90.3 MCH 31.1 MCHC 34.5 RDW Std Deviation 40.7 RDW Coeff of Tanya 12.2 Plt Count 308 MPV 10.7 Immature Gran % (Auto) 0.300 Neut % (Auto) 72.7 H Lymph % (Auto) 19.3 [place] % (Auto) 6.9 Eos % (Auto) 0.4 Baso % (Auto) 0.4 Absolute Neuts (auto) 9.8 H Absolute Lymphs (auto) 2.59 Nucleated RBC % 0 Sodium Cancelled 138 Potassium Cancelled 3.1 L Chloride Cancelled 109 H Carbon Dioxide Cancelled 21.0 Anion Gap Cancelled 8 BUN Cancelled 11 Creatinine Cancelled 0.98 Estim Creat Clear Calc Cancelled 108.57 Est GFR (MDRD) Af Amer Cancelled 117 Est GFR (MDRD) Non-Af Cancelled 97 BUN/Creatinine Ratio Cancelled 11.2 Glucose Cancelled 118 H Calcium Cancelled 8.9 Lipase Cancelled 108 Rhythm Strip Rhythm Strip: Sinus Rhythm Rate: 70 Ectopy: None Discharge Plan Triage Chief Complaint: Abd Pain ED Provider: Agus Ruby Dx/Rx/DC Orders Clinical Impression: Diffuse abdominal pain, Nausea and vomiting, Hypokalemia due to excessive gastrointestinal loss of potassium Instructions: Abdominal Pain, ED Hypokalemia Prescriptions: Continued ondansetron 4 mg tablet,disintegrating 4 mg PO Q8H PRN (Reason: nausea and vomiting) Qty: 10 RF: 0 omeprazole 40 mg capsule,delayed release(DR/EC) 40 mg PO DAILY 28 Days Qty: 28 RF: 0 sucralfate 1 gram tablet 1 g PO BID Qty: 30 RF: 0 cholecalciferol (vitamin D3) 100 mcg (4,000 unit) Capsule 100 mcg PO DAILY RF: 0 Primary Care Provider: Lizett Chavez Referrals: Lizett Chavez MD [Primary Care Provider] - Franco Marshall DO [STAFF PHYSICIAN] - Keep [facility] appointment (or sooner if able -- call office tomorrow) Disposition Disposition: Home, Self Care
[2021-09-04 10:58] LABS: Absolute Lymphocyte Count 2.59 X10^3/uL (0.83-4.51); Absolute Neutrophil Count 9.8 X10^3/uL (2.0-7.7); Basophil# 0.05 X10^3/uL; Basophil% 0.4 % (0-1); Eosinophil# 0.06 X10^3/uL; Eosinophils% 0.4 % (0-5); Hematocrit 43.8 % (40-54); Hemoglobin 15.1 g/dL (13.0-16.5); Lymphocyte # 2.59 X10^3/ul (0.83-4.51); Lymphocyte % 19.3 % (19-41); Mean Corp Hgb Conc 34.5 g/dL (32-36); Mean Corpuscular Hgb 31.1 pg (27.0-32.0); Mean Corpuscular Volume 90.3 fL (80-94); Mean Platelet Vol. 10.7 fl (6.2-12.0); Monocyte# 0.93 X10^3/uL; Monocyte% 6.9 % (0-10); NRBC Flagged by Analyzer 0 % (0-5); Neutrophil # 9.78 X10^3/uL (2.7-7.7); Neutrophil % 72.7 % (47-70); Platelet Count 308 K/mm3 (150-450); RBC Distribution Width CV 12.2 % (11.6-14.6); RBC Distribution Width SD 40.7 fl (35.1-43.9); Red Blood Count 4.85 M/mm3 (4.6-6.2); White Blood Count 13.5 K/mm3 (4.4-11.0)
--- NOTE | 2021-09-04 11:00 | ED.RN ---
s/o came out to request something for anxiety.
--- NOTE | 2021-09-04 11:02 | ED.RN ---
Girlfriend came out and asked about getting anxiety meds for pt. Girlfriend states that pt feels like he has been forgotten and him being anxious is making her anxious as well. Lyn Payton primary nurse and Dr Ruby aware of this.
--- NOTE | 2021-09-04 11:04 | ED.RN ---
spoke with about pt restlessness and need for anxiety medication. new orders received. updated pt and s/o that meds were being pulled and will be in shortly.
[2021-09-04] MEDS: Metoclopramide 10 MG/2 ML Vial IV (11:10)
[2021-09-04] MEDS: LORazepam 2 MG/ML Syringe 1 MG IV ×2 (11:10→13:10)
[2021-09-04] MEDS: Mag Hydrox/Al Hydrox/Simeth 30 ML UDC PO (11:13)
[2021-09-04] MEDS: Dicyclomine 20 MG/2 ML Vial IM (11:14)
[2021-09-04] MEDS: 0.9% Normal Saline 1,000 ML 999 ML IV (11:14)
[2021-09-04] MEDS: Ondansetron 4 MG/2 ML Vial IV (11:39)
[2021-09-04 12:24] VITALS: BP 155/90; PULSE 69; RESP 18; TEMP 36.7; O2SAT 99
--- NOTE | 2021-09-04 12:40 | ED.RN ---
Patients significant other at nurses station requesting patient have more nausea medication. Dr. Ruby notified. Dr. Ruby states he has had 2 different medications for nausea and cannot have anymore at this time. requests giving patient some alcohol pads to stiff during this time. Patient and patients significant other notified by this RN. Patient has emesis bag and was given alcohol pads. No further requests at this time.
[2021-09-04 12:46] LABS: Anion Gap 8 (5-15); BUN 11 mg/dL (7-18); BUN/Creat Ratio 11.2 RATIO (10-20); Calcium,Total 8.9 mg/dL (8.5-10.1); Chloride 109 mmol/L (98-107); Creatinine, Serum 0.98 mg/dL (0.70-1.30); EST Glomerular Filtration Rate 97 mL/min (>60); Est Glom Filt Rate - Afr Amer 117 mL/min (>60); Estimated Creatinine Clearance 108.57 ml/min; Glucose 118 mg/dL (74-106); Lipase 108 U/L (73-393); Potassium 3.1 mmol/L (3.5-5.1); Sodium Level 138 mmol/L (136-145)
--- NOTE | 2021-09-04 12:50 | ED.RN ---
girlfriend came out and asked for something to help with his nausea and anxiety. Dr Ruby is aware. Orders have been entered.
[2021-09-04] MEDS: Potassium Chloride 10mEq/100mL 10 MEQ/100 ML IV.SOLN. 100 MEQ IV BOLUS (13:07)
[2021-09-04] MEDS: ChlorproMAZINE 50 MG/2 ML Ampul 12.5 MG IV (13:10)
--- NOTE | 2021-09-04 13:20 | ED.RN ---
Patients LFA IV had been discontinued due to being infiltrated. Patients S/O states I'm not surprised it stopped working because he was moving around a lot. He had already been poked 25 times. Geo, medic at bedside attempting for IV. Patient and s/o informed he receiving IV potassium, thorazine for nausea and ativan for his anxiety. RN also informed patient he will be receiving IV potassium that is known to burn. Saline is running also to slow the burning. No further requests at this time. S/O states she is running home to grab a book because she cant stare at her phone this long.
--- NOTE | 2021-09-04 14:00 | ED.RN ---
dr thompson had discussion with pt s/o regarding darby of care. tests doen through emergency room and what the next steps are. pt resting quietly no distress noted. s/o verbalized gratitude that pt seems much more comfortable and has gotten relief with interventions provided. s/o also verbalizes understanding about what has occurred and that there will be need for followup for resolution. goal today is to give him some temorary relief of sx. and resources to manage. s/o expressed understanding and gratitude for plan and care
[2021-09-04 14:08] VITALS: BP 161/92; PULSE 72; RESP 16; TEMP 37; O2SAT 100
--- NOTE | 2021-09-04 15:30 | ED.RN ---
PT RESTING IN BED. NO DISTRESS NOTED. REMAINS ON CASING OPERATOR., BREATHING EVEN AND UNLABORED. UPDATED S/O WITH STATUS OBSERVATION AT THIS TIME. NO NEEDS VOICED BY S/O PT NOT DISTURBED.
[2021-09-04 16:11] VITALS: BP 156/94; PULSE 84; RESP 12; O2SAT 99
--- NOTE | 2021-09-04 16:30 | ED.RN ---
pt woke and sipping on water. used urinal. reports feeling much better. little nausea but still nothing like it was. pt verbalizes feeling comfortable to go home. understands plan for sx management and followup care.
== END 2021-09-04 16:49 | disposition home or self-care (01) ==
PROVIDERS: Emergency Provider Emergency Medicine; PCP Internal Medicine; Visit Provider Emergency Medicine
DX: R10.84 Generalized abdominal pain (principal); R11.2 Nausea with vomiting, unspecified; E87.6 Hypokalemia; F12.90 Cannabis use, unspecified, uncomplicated; E55.9 Vitamin D deficiency, unspecified; F17.210 Nicotine dependence, cigarettes, uncomplicated; Z79.899 Other long term (current) drug therapy
CPT/HCPCS: 80048; 83690; 85025; 96365; 96366; 96372; 96375; 96376; 99283; J7030; A4216; J2405

== ENCOUNTER → 2021-10-18 | Outpatient (CLI) | payer MEDICAID, SELFPAY ==
[2021-10-18 10:00] LABS: Absolute Lymphocyte Count 1.65 X10^3/uL (0.83-4.51); Absolute Neutrophil Count 6.1 X10^3/uL (2.0-7.7); Basophil# 0.03 X10^3/uL; Basophil% 0.4 % (0-1); Eosinophil# 0.13 X10^3/uL; Eosinophils% 1.5 % (0-5); Erythrocyte Sedimentation Rate 8 mm/hr (0-20); Hematocrit 41.2 % (40-54); Hemoglobin 13.8 g/dL (13.0-16.5); Lymphocyte # 1.65 X10^3/ul (0.83-4.51); Lymphocyte % 19.7 % (19-41); Mean Corp Hgb Conc 33.5 g/dL (32-36); Mean Corpuscular Hgb 31.2 pg (27.0-32.0); Mean Corpuscular Volume 93.2 fL (80-94); Mean Platelet Vol. 10.2 fl (6.2-12.0); Monocyte# 0.47 X10^3/uL; Monocyte% 5.6 % (0-10); NRBC Flagged by Analyzer 0 % (0-5); Neutrophil # 6.08 X10^3/uL (2.7-7.7); Neutrophil % 72.4 % (47-70); Platelet Count 265 K/mm3 (150-450); RBC Distribution Width CV 12.8 % (11.6-14.6); RBC Distribution Width SD 44.1 fl (35.1-43.9); Red Blood Count 4.42 M/mm3 (4.6-6.2); White Blood Count 8.4 K/mm3 (4.4-11.0)
[2021-10-18 13:42] LABS: ALB/GLOB Ratio 1.1 RATIO (0.9-2.4); AST(SGOT) 25 U/L (15-37); Alanine Aminotransfer ALT/SGPT 38 U/L (16-61); Alkaline Phosphatase 69 U/L (45-117); Amylase 80 U/L (25-115); Anion Gap 6 (5-15); BUN 9 mg/dL (7-18); BUN/Creat Ratio 8.9 RATIO (10-20); CRP < 2.90 mg/L (0.0-3.0); Calcium,Total 9.1 mg/dL (8.5-10.1); Chloride 108 mmol/L (98-107); Creatinine, Serum 1.01 mg/dL (0.70-1.30); EST Glomerular Filtration Rate 93 mL/min (>60); Est Glom Filt Rate - Afr Amer 113 mL/min (>60); Globulin 3.8 g/dL (2.2-4.2); Glucose 103 mg/dL (74-106); LDH 188 U/L (87-241); Lipase 75 U/L (73-393); Potassium 3.8 mmol/L (3.5-5.1); Prolactin 8.6 ng/mL; Protein, Total 7.8 g/dL (6.4-8.2); Sodium Level 138 mmol/L (136-145)
[2021-10-19 16:09] LABS: Endomysial Antibody IgA Negative (Negative)
[2021-10-19 21:10] LABS: Immunoglobulin A 248 mg/dL (90-386)
[2021-10-19 21:11] LABS: t-Transglutaminase IgA <2 U/mL (0-3)
[2021-10-25 04:18] LABS: Anti-Centromere B Ab <0.2 AI (0.0-0.9); Anti-Chromatin <0.2 AI (0.0-0.9); Anti-Jo <0.2 AI (0.0-0.9); Anti-Scleroderma-70 AB <0.2 AI (0.0-0.9); Beef <0.10 kU/L (Class 0); Corn <0.10 kU/L (Class 0); Egg, Whole <0.10 kU/L (Class 0); Milk (Cow) <0.10 kU/L (Class 0); Peanut 0.29 kU/L (Class 0/I); Pork <0.10 kU/L (Class 0); RNP Ab <0.2 AI (0.0-0.9); SJOGREN'S Anti-SS-A test < 0.2 AI (0.0-0.9); SJOGREN'S Anti-SS-B test < 0.2 AI (0.0-0.9); Smith Ab <0.2 AI (0.0-0.9); Soybean <0.10 kU/L (Class 0); Wheat <0.10 kU/L (Class 0)
[2021-10-25 05:13] LABS: Albumin 4.3 g/dL (2.9-4.4); Alpha-1-Globulins 0.2 g/dL (0.0-0.4); Alpha-2-Globulins 0.6 g/dL (0.4-1.0); Complement C3 133 mg/dL (82-167); Cytoplasmic Ab (C-ANCA) <1:20 titer (Neg:<1:20); Gamma Globulin 1.1 g/dL (0.4-1.8); Immunoglobulin A 243 mg/dL (90-386); Immunoglobulin E 103 IU/mL (6-495); Immunoglobulin G 1207 mg/dL (603-1613); Immunoglobulin M 44 mg/dL (20-172); PROEL- TOTAL PROTEIN 7.3 g/dL (6.0-8.5)
[2021-10-25 15:27] LABS: Anti-dsDNA Ab <1 IU/mL (0-9); Chocolate <0.10 kU/L (Class 0)
[2021-10-25 15:37] LABS: Angiotensin Convert Enzyme 30 U/L (14-82); Perinuclear Ab (P-ANCA) <1:20 titer (Neg:<1:20)
== END | disposition home or self-care (01) ==
LOC: LAB 09:03
PROVIDERS: PCP Internal Medicine; Referring Provider Internal Medicine Gastroenterology; Visit Provider Internal Medicine Gastroenterology
DX: R10.9 Unspecified abdominal pain (principal)
CPT/HCPCS: 36415; 80053; 82150; 82164; 82784; 82785; 83516; 83615; 83690; 84146; 84165; 85025; 85652; 86003; 86005; 86140; 86160; 86225; 86235; 86255; 86256; 86334

== ENCOUNTER 2021-11-23 04:14 | Emergency (ER) | payer MEDICAID, SELFPAY ==
[2021-11-23 04:15] VITALS: BP 156/90; PULSE 54; RESP 15; TEMP 36.1; O2SAT 100; BMI 34.7
--- NOTE | 2021-11-23 04:49 | ED.VIS.GI ---
HPI HPI - GI History of Present Illness Chief Complaint: Nausea/Vomiting Narrative Narrative: 26-year-old male with frequent history of nausea and vomiting. He was doing otherwise well this evening until he woke up from sleep a couple of hours ago and started vomiting. No hematemesis or coffee-ground emesis. He is not having diarrhea. Last episode of emesis was about an hour ago. His girlfriend states that he has not been taking his omeprazole. She does not know why. He is not answering questions currently. He has Zofran at home but could not take it because he was so nauseous. Apparently last evening had a sandwich with lunch meat and his girlfriend made some salmon. This was nothing out of the ordinary for them. No fever, chills. His girlfriend states that he currently is less severe than he usually is. PFSH [facility] Medical History Abdominal pain Nausea and vomiting Subclinical hypothyroidism Vitamin D deficiency Home Medications omeprazole 40 mg capsule,delayed release 40 mg PO DAILY 4 weeks #28 caps 09/02/21 [Rx Last Taken Unknown] ondansetron 4 mg disintegrating tablet 4 mg PO Q8H PRN nausea and vomiting #10 tabs 09/02/21 [Rx Last Taken Unknown] sucralfate 1 gram tablet 1 g PO BID #30 tabs 09/02/21 [Rx Last Taken Unknown] cholecalciferol (vitamin D3) 100 mcg (4,000 unit) capsule 100 mcg PO DAILY 09/04/21 [History Last Taken Unknown] prednisone 10 mg tablet tab 11/23/21 [History Last Taken Unknown] Allergy/AdvReac Type Severity Reaction Status Date / Time adhesive tape Allergy Rash Verified 11/23/21 04:22 ibuprofen [From Motrin] AdvReac Upset Verified 11/23/21 04:22 Stomach Tegaderm IV Guard AdvReac Rash Uncoded 11/23/21 04:22 Family History Mother Asthma Surgical History History of appendectomy Social History household members: significant other Smoking Status: Current every day smoker tobacco type: cigarettes alcohol intake: never substance use type: marijuana ROS ROS ED Constitutional Constitutional ED: Denies fever(s) or subjective ENT ENT ED: Denies rhinorrhea or sore throat Cardiovascular Cardiovascular: Denies chest pain or palpitations Respiratory/Chest Respiratory/Chest: Denies cough or dyspnea Gastrointestinal Gastrointestinal: Reports abdominal pain, nausea and vomiting Genitourinary Genitourinary ED: Denies dysuria or hematuria Musculoskeletal Musculoskeletal: Denies arthralgias or back pain Integumentary Denies abscess or Abrasions Neurologic Neurologic: Denies headache(s) or paresthesias Psychiatric Psychiatric: Denies anxiety or depression EXAM Physical Exam Const Vital Signs: 11/23/21 04:15 Temperature 97.0 F L Temperature Source Temporal Pulse Rate 54 L Respiratory Rate 15 Blood Pressure 156/90 H Blood Pressure Mean 112 Pulse Ox 100 Oxygen Delivery Method Room Air Positive well nourished General Appearance ED: Negative for pallor HEENT Reports moist mucous membranes normocephalic and atraumatic Eyes PERRL and EOMs intact bilaterally General Eye ED: Negative for pale conjunctiva or scleral icterus Resp normal respiratory effort and clear to auscultation bilaterally Cardio regular rhythm Rate: bradycardia GI GI Narrative: Generalized tenderness. No focal area of pain. Abdomen not rigid. No rebound or guarding Back/Spine no CVA tenderness Neuro CN's II-XII intact bilaterally Sensorium / Orientation: alert, oriented to person, oriented to place and oriented to time Psych Psych Narrative: Patient refusing to speak Skin General Skin Exam: Negative for jaundice or pallor MDM MDM MDM Narrative Medical decision making narrative: Patient given IV fluids, Haldol, Pepcid. Blood work is obtained and CBC shows slight leukocytosis 11.4. Hemoglobin medic are stable. Renal function and electrolytes are normal. LFTs and lipase normal. Patient reevaluated at 6 AM and states he feels well and wants to go home. Patient counseled to restart his PPI. Try Zofran at home if he can for coming the emergency room. He is to follow-up with Dr. Marshall. Impression: 1. Nausea/vomit Lab Data Attestation: I reviewed the patient's lab results. Labs: Laboratory Results - last 24 hr 11/23/21 11/23/21 05:08 05:08 WBC 11.4 H RBC 4.75 Hgb 14.7 Hct 43.9 MCV 92.4 MCH 30.9 MCHC 33.5 RDW Std Deviation 43.2 RDW Coeff of Tanya 12.6 Plt Count 312 MPV 9.9 Immature Gran % (Auto) 0.600 Neut % (Auto) 75.9 H Lymph % (Auto) 17.4 L [place] % (Auto) 5.6 Eos % (Auto) 0.2 Baso % (Auto) 0.3 Absolute Neuts (auto) 8.7 H Absolute Lymphs (auto) 1.99 Nucleated RBC % 0 Sodium 138 Potassium 3.9 Chloride 105 Carbon Dioxide 26.0 Anion Gap 7 BUN 12 Creatinine 0.99 Estim Creat Clear Calc 107.47 Est GFR (MDRD) Af Amer 115 Est GFR (MDRD) Non-Af 95 BUN/Creatinine Ratio 12.1 Glucose 117 H Calcium 9.6 Total Bilirubin 0.20 AST 19 ALT 42 Alkaline Phosphatase 73 Total Protein 8.0 Albumin 4.0 Globulin 4.0 Albumin/Globulin Ratio 1.0 Lipase 66 L Discharge Plan Triage Chief Complaint: Nausea/Vomiting ED Provider: Shilo Olmedo Dx/Rx/DC Orders Instructions: ED Vomiting (Adult) Prescriptions: No Action ondansetron 4 mg tablet,disintegrating 4 mg PO Q8H PRN (Reason: nausea and vomiting) Qty: 10 0RF omeprazole 40 mg capsule,delayed release(DR/EC) 40 mg PO DAILY 28 Days Qty: 28 0RF sucralfate 1 gram tablet 1 g PO BID Qty: 30 0RF cholecalciferol (vitamin D3) 100 mcg (4,000 unit) Capsule 100 mcg PO DAILY prednisone 10 mg tablet Primary Care Provider: Lizett Chavez Referrals: Lizett Chavez MD [Primary Care Provider] - Franco Marshall DO [STAFF PHYSICIAN] - As soon as possible Disposition Disposition: Home, Self Care
[2021-11-23] MEDS: Famotidine 200 MG/20 ML MDV 20 MG in 0.9% Normal Saline (Pres. free 8 ML 300 MG IV (05:09)
[2021-11-23] MEDS: Dicyclomine 20 MG/2 ML Vial IM (05:11)
[2021-11-23] MEDS: Haloperidol Lactate 5 MG/ML Vial 2 MG IV (05:11)
[2021-11-23] MEDS: 0.9% Normal Saline 1,000 ML 999 ML IV (05:11)
[2021-11-23 05:14] LABS: Absolute Lymphocyte Count 1.99 X10^3/uL (0.83-4.51); Absolute Neutrophil Count 8.7 X10^3/uL (2.0-7.7); Basophil# 0.03 X10^3/uL; Basophil% 0.3 % (0-1); Eosinophil# 0.02 X10^3/uL; Eosinophils% 0.2 % (0-5); Hematocrit 43.9 % (40-54); Hemoglobin 14.7 g/dL (13.0-16.5); Lymphocyte # 1.99 X10^3/ul (0.83-4.51); Lymphocyte % 17.4 % (19-41); Mean Corp Hgb Conc 33.5 g/dL (32-36); Mean Corpuscular Hgb 30.9 pg (27.0-32.0); Mean Corpuscular Volume 92.4 fL (80-94); Mean Platelet Vol. 9.9 fl (6.2-12.0); Monocyte# 0.64 X10^3/uL; Monocyte% 5.6 % (0-10); NRBC Flagged by Analyzer 0 % (0-5); Neutrophil # 8.67 X10^3/uL (2.7-7.7); Neutrophil % 75.9 % (47-70); Platelet Count 312 K/mm3 (150-450); RBC Distribution Width CV 12.6 % (11.6-14.6); RBC Distribution Width SD 43.2 fl (35.1-43.9); Red Blood Count 4.75 M/mm3 (4.6-6.2); White Blood Count 11.4 K/mm3 (4.4-11.0)
[2021-11-23 05:39] LABS: AST(SGOT) 19 U/L (15-37); Alanine Aminotransfer ALT/SGPT 42 U/L (16-61); Alkaline Phosphatase 73 U/L (45-117); Anion Gap 7 (5-15); BUN 12 mg/dL (7-18); BUN/Creat Ratio 12.1 RATIO (10-20); Calcium,Total 9.6 mg/dL (8.5-10.1); Chloride 105 mmol/L (98-107); Creatinine, Serum 0.99 mg/dL (0.70-1.30); EST Glomerular Filtration Rate 95 mL/min (>60); Est Glom Filt Rate - Afr Amer 115 mL/min (>60); Estimated Creatinine Clearance 107.47 ml/min; Glucose 117 mg/dL (74-106); Lipase 66 U/L (73-393); Potassium 3.9 mmol/L (3.5-5.1); Sodium Level 138 mmol/L (136-145)
== END 2021-11-23 06:01 | disposition home or self-care (01) ==
PROVIDERS: Emergency Provider Student in an Organized Health Care Education/Training Program; PCP Internal Medicine; Visit Provider Student in an Organized Health Care Education/Training Program
DX: R11.2 Nausea with vomiting, unspecified (principal); F12.90 Cannabis use, unspecified, uncomplicated; F17.210 Nicotine dependence, cigarettes, uncomplicated
CPT/HCPCS: 80053; 85025; 83690; J7030; J3490

== ENCOUNTER 2021-11-23 09:52 | Emergency (ER) | payer MEDICAID, SELFPAY ==
[2021-11-23 09:53] VITALS: BP 153/93; PULSE 51; RESP 18; TEMP 36.4; O2SAT 100; BMI 32.6
--- NOTE | 2021-11-23 10:14 | ED.VIS.GI ---
HPI HPI - GI History of Present Illness Chief Complaint: Abd Pain Detail of Chief Complaint: Abdominal pain and vomiting Informant: patient Narrative Narrative: Patient presents with abdominal pain and vomiting that started last evening around 3 AM. Patient was seen in the emergency department here and medicated with Haldol and Pepcid. Patient had some relief and went home and then started having more vomiting and more pain. This is a chronic issue for the patient and has been seen in this emergency department multiple times for the same. Patient has a care plan do not give opioids for nonverifiable pain. Patient has seen GI and has had appointment with Dr. Marshall. Etiology of his symptoms is unclear. Patient's had multiple CT scans of the abdomen pelvis that have been unremarkable. Patient's had prior appendectomy. He denies any fevers. Prior similar symptoms: Yes PFSH PFSH Medical History Abdominal pain Nausea and vomiting Subclinical hypothyroidism Vitamin D deficiency Home Medications omeprazole 40 mg capsule,delayed release 40 mg PO DAILY 4 weeks #28 caps 09/02/21 [Rx Last Taken Unknown] ondansetron 4 mg disintegrating tablet 4 mg PO Q8H PRN nausea and vomiting #10 tabs 09/02/21 [Rx Last Taken Unknown] sucralfate 1 gram tablet 1 g PO BID #30 tabs 09/02/21 [Rx Last Taken Unknown] cholecalciferol (vitamin D3) 100 mcg (4,000 unit) capsule 100 mcg PO DAILY 09/04/21 [History Last Taken Unknown] ondansetron 4 mg disintegrating tablet 4 mg PO Q8H PRN PRN Nausea #10 tabs 11/23/21 [Rx Last Taken Unknown] prednisone 10 mg tablet tab 11/23/21 [History Last Taken Unknown] promethazine 25 mg rectal suppository 25 mg NV Q6H PRN nausea and vomiting #12 ea 11/23/21 [Rx Last Taken Unknown] Allergy/AdvReac Type Severity Reaction Status Date / Time adhesive tape Allergy Rash Verified 11/23/21 09:53 ibuprofen [From Motrin] AdvReac Upset Verified 11/23/21 09:53 Stomach Tegaderm IV Guard AdvReac Rash Uncoded 11/23/21 09:53 Family History Mother Asthma Surgical History History of appendectomy Social History household members: significant other Smoking Status: Current every day smoker tobacco type: cigarettes alcohol intake: never substance use type: marijuana ROS ROS ED Review of Systems ROS Unobtainable: other Constitutional Constitutional ED: Reports lethargy; Denies chills, fever(s), sweats or weight loss Eyes Eyes: Denies blurry vision, change in vision or diplopia ENT ENT ED: Denies rhinorrhea or sore throat Cardiovascular Cardiovascular: Reports chest pain and racing heartbeat; Denies orthopnea Respiratory/Chest Respiratory/Chest: Reports dyspnea and dyspnea on exertion; Denies cough, orthopnea or sputum Gastrointestinal Gastrointestinal: Reports abdominal pain, nausea and vomiting; Denies diarrhea Genitourinary Genitourinary ED: Denies dysuria, hematuria or urinary frequency Musculoskeletal Musculoskeletal: Denies arthralgias, back pain, myalgias or neck pain Integumentary Denies abscess, Abrasions or rash Neurologic Neurologic: Denies headache(s) or weakness Psychiatric Psychiatric: Denies anxiety, depression or suicidal thoughts Endocrine Endocrinology: Denies polydipsia, polyphagia or polyuria Hematologic/Lymphatic Hematologic/Lymphatic: Denies easy bleeding, easy bruising or lymphadenopathy Allergic/Immunologic Allergic/Immunologic ED: Denies mouth swelling, tongue swelling or urticaria EXAM Physical Exam Const Vital Signs: 11/23/21 09:53 11/23/21 10:55 Temperature 97.5 F L Temperature Source Temporal Pulse Rate 51 L Respiratory Rate 18 Blood Pressure 153/93 H 139/91 H Blood Pressure Mean 113 107 Pulse Ox 100 99 Oxygen Delivery Method Room Air Room Air Positive well nourished and well developed General Appearance ED: well developed and NAD HEENT Reports TM's clear and moist mucous membranes normocephalic and atraumatic; Negative for trauma or tenderness Tympanic Membrane ED: Yes TM's clear Eyes PERRL and EOMs intact bilaterally General Eye ED: Negative for pale conjunctiva or scleral icterus Neck no lymphadenopathy, supple and no JVD General: Negative for tenderness Chest Wall inspection of chest normal and palpation of chest normal Chest: Negative for tenderness Resp normal respiratory effort and clear to auscultation bilaterally Effort and Inspection: Negative for respiratory distress or pain with movement Auscultation: Negative for rhonchi, wheezes or diminished lung sounds Cardio regular rate, regular rhythm, S1 normal heart sound, S2 normal heart sound and no murmurs Peripheral Pulses: pulses 2+ throughout GI normal to inspection, nondistended, normoactive bowel sounds, soft to palpation, non-distended and no masses GI Narrative: Mild diffuse tenderness throughout. There is no rebound, rigidity, or frail signs. Back/Spine no CVA tenderness and no thoracic nor lumbar tenderness Extremity normal to inspection General Extremety ED: Negative for edema General Extremity: Negative for edema Neuro oriented x3, CN's II-XII intact bilaterally, no sensory deficits noted and gait normal Sensorium / Orientation: awake, alert, oriented to person, oriented to place and oriented to time Motor Exam: strength 5/5 throughout and strength abnormal Psych mental status grossly normal Skin no rashes or lesions noted and no wounds MDM MDM MDM Narrative Medical decision making narrative: IV line established on arrival. Patient was medicated with Ativan and Zofran. Patient was then given Benadryl and Thorazine. Patient had no further vomiting. At this point patient will be discharged to home. He is advised to follow-up with GI. I will give him a prescription for Zofran and Phenergan suppositories. Discharge Plan Triage Chief Complaint: Abd Pain ED Provider: Adelina Jefferson Dx/Rx/DC Orders Clinical Impression: Chronic abdominal pain, Vomiting Instructions: Abdominal Pain, ED Vomiting (Adult), ED Abdominal Pain Unkn Cause Male... Prescriptions: New ondansetron [ondansetron] 4 mg tablet,disintegrating 4 mg PO Q8H PRN PRN (Reason: Nausea) Qty: 10 0RF promethazine 25 mg suppository 25 mg NV Q6H PRN (Reason: nausea and vomiting) Qty: 12 0RF No Action ondansetron 4 mg tablet,disintegrating 4 mg PO Q8H PRN (Reason: nausea and vomiting) Qty: 10 0RF omeprazole 40 mg capsule,delayed release(DR/EC) 40 mg PO DAILY 28 Days Qty: 28 0RF sucralfate 1 gram tablet 1 g PO BID Qty: 30 0RF cholecalciferol (vitamin D3) 100 mcg (4,000 unit) Capsule 100 mcg PO DAILY prednisone 10 mg tablet Primary Care Provider: Lizett Chavez Referrals: Lizett Chavez MD [Primary Care Provider] - Friend,DO Franco [STAFF PHYSICIAN] - 3-5 Days Disposition Disposition: Home, Self Care
[2021-11-23] MEDS: Ondansetron 4 MG/2 ML Vial IV (10:23)
[2021-11-23] MEDS: LORazepam 2 MG/ML Syringe 0.5 MG IV (10:24)
[2021-11-23] MEDS: Famotidine 200 MG/20 ML MDV 20 MG in 0.9% Normal Saline (Pres. free 8 ML 300 MG IV (10:34)
[2021-11-23 10:55] VITALS: BP 139/91; O2SAT 99
== END 2021-11-23 11:49 | disposition home or self-care (01) ==
PROVIDERS: Emergency Provider Emergency Medicine; PCP Internal Medicine; Visit Provider Emergency Medicine
DX: R10.9 Unspecified abdominal pain (principal); F12.90 Cannabis use, unspecified, uncomplicated; R11.2 Nausea with vomiting, unspecified; F17.210 Nicotine dependence, cigarettes, uncomplicated; G89.29 Other chronic pain
CPT/HCPCS: 80053; 83690; 85025; 96365; 96372; 96375; 99283; J7030; A4216; J2405; J3490

== ENCOUNTER 2021-11-27 07:22 | Emergency (ER) | payer MEDICAID, SELFPAY ==
[2021-11-27 07:22] VITALS: PULSE 74; RESP 16; TEMP 36.2; O2SAT 100; BMI 72.1
--- NOTE | 2021-11-27 07:37 | ED.VIS.GI ---
HPI HPI - GI History of Present Illness Chief Complaint: Abd Pain Narrative Narrative: 26-year-old male presenting with epigastric pain, nausea. He states this episode is not as bad. He has been to the ER multiple times for this. He states that on his last visit he was given a prescription for Zofran however he had to go out of town to help his significant other with her mother who was not in good health. They forgot to fill the Zofran prescription. He does not have any at home. He states that he believes he could try an oral Zofran because his symptoms are not really that bad currently. He states that he just wants to get ahead of his nausea. He has not had fever, chills. No diarrhea. No black or bloody stools. No hematemesis or coffee-ground emesis. PFSH [facility] Medical History Abdominal pain Nausea and vomiting Subclinical hypothyroidism Vitamin D deficiency Home Medications omeprazole 40 mg capsule,delayed release 40 mg PO DAILY 4 weeks #28 caps 09/02/21 [Rx Last Taken Unknown] ondansetron 4 mg disintegrating tablet 4 mg PO Q8H PRN nausea and vomiting #10 tabs 09/02/21 [Rx Last Taken Unknown] sucralfate 1 gram tablet 1 g PO BID #30 tabs 09/02/21 [Rx Last Taken Unknown] cholecalciferol (vitamin D3) 100 mcg (4,000 unit) capsule 100 mcg PO DAILY 09/04/21 [History Last Taken Unknown] ondansetron 4 mg disintegrating tablet 4 mg PO Q8H PRN PRN Nausea #10 tabs 11/23/21 [Rx Last Taken Unknown] prednisone 10 mg tablet tab 11/23/21 [History Last Taken Unknown] promethazine 25 mg rectal suppository 25 mg MO Q6H PRN nausea and vomiting #12 ea 11/23/21 [Rx Last Taken Unknown] Allergy/AdvReac Type Severity Reaction Status Date / Time adhesive tape Allergy Rash Verified 11/27/21 07:25 ibuprofen [From Motrin] AdvReac Upset Verified 11/27/21 07:25 Stomach Tegaderm IV Guard AdvReac Rash Uncoded 11/27/21 07:25 Family History Mother Asthma Surgical History History of appendectomy Social History household members: significant other Smoking Status: Current every day smoker tobacco type: cigarettes alcohol intake: never substance use type: marijuana ROS ROS ED Constitutional Constitutional ED: Denies chills or fever(s) ENT ENT ED: Denies rhinorrhea or sore throat Cardiovascular Cardiovascular: Denies chest pain or palpitations Respiratory/Chest Respiratory/Chest: Denies cough or dyspnea Gastrointestinal Gastrointestinal: Reports abdominal pain, nausea and vomiting Genitourinary Genitourinary ED: Denies dysuria or hematuria Musculoskeletal Musculoskeletal: Denies arthralgias or back pain Integumentary Denies abscess Neurologic Neurologic: Denies headache(s) or paresthesias Psychiatric Psychiatric: Denies anxiety or depression EXAM Physical Exam Const Vital Signs: 11/27/21 07:22 Temperature 97.1 F L Temperature Source Temporal Pulse Rate 74 Respiratory Rate 16 Pulse Ox 100 Oxygen Delivery Method Room Air Positive well nourished General Appearance ED: NAD; Negative for pallor HEENT Reports moist mucous membranes normocephalic and atraumatic Eyes PERRL and EOMs intact bilaterally General Eye ED: Negative for pale conjunctiva or scleral icterus Resp normal respiratory effort and clear to auscultation bilaterally Auscultation: Negative for rales, rhonchi or wheezes Cardio regular rate and regular rhythm GI Palpation: tender epigastric; Negative for guarding, rigid or hepatomegaly Back/Spine no CVA tenderness Neuro CN's II-XII intact bilaterally Psych mental status grossly normal Skin no wounds General Skin Exam: Negative for jaundice or pallor MDM MDM MDM Narrative Medical decision making narrative: Patient given Zofran ODT 4 mg. On reevaluation at 0 830 patient is sitting comfortably reading a book and states he feels ready to go home. Patient has a prescription for Zofran at home. Return precautions discussed. I recommended highly that he follow-up with Dr. Marshall. He states that he already had an initial visit with Dr. Marshall however I do not see any notes on this. Impression: 1. Gastric Lab Data Attestation: I reviewed the patient's lab results. Discharge Plan Triage Chief Complaint: Abd Pain ED Provider: Shilo Olmedo Dx/Rx/DC Orders Instructions: ED Gastritis (Adult) Prescriptions: No Action ondansetron 4 mg tablet,disintegrating 4 mg PO Q8H PRN (Reason: nausea and vomiting) Qty: 10 0RF omeprazole 40 mg capsule,delayed release(DR/EC) 40 mg PO DAILY 28 Days Qty: 28 0RF sucralfate 1 gram tablet 1 g PO BID Qty: 30 0RF cholecalciferol (vitamin D3) 100 mcg (4,000 unit) Capsule 100 mcg PO DAILY prednisone 10 mg tablet ondansetron [ondansetron] 4 mg tablet,disintegrating 4 mg PO Q8H PRN PRN (Reason: Nausea) Qty: 10 0RF promethazine 25 mg suppository 25 mg MO Q6H PRN (Reason: nausea and vomiting) Qty: 12 0RF Primary Care Provider: Liztet Chavez Referrals: Lizett Chavez MD [Primary Care Provider] - Franco Marshall DO [STAFF PHYSICIAN] - As soon as possible Disposition Disposition: Home, Self Care
[2021-11-27] MEDS: Ondansetron ODT 4 MG Tablet PO (07:49)
[2021-11-27 08:40] VITALS: BP 113/72; PULSE 68; RESP 15; O2SAT 97
== END 2021-11-27 08:40 | disposition home or self-care (01) ==
PROVIDERS: Emergency Provider Student in an Organized Health Care Education/Training Program; PCP Internal Medicine; Visit Provider Student in an Organized Health Care Education/Training Program
DX: R10.13 Epigastric pain (principal); F12.90 Cannabis use, unspecified, uncomplicated; F17.210 Nicotine dependence, cigarettes, uncomplicated

== ENCOUNTER 2021-11-27 10:46 | Emergency (ER) | payer MEDICAID, SELFPAY ==
[2021-11-27 10:46] VITALS: BP 150/100; PULSE 72; RESP 14; TEMP 36.6; O2SAT 100; BMI 32.6
--- NOTE | 2021-11-27 11:22 | EDS_ITS ---
HPI HPI - GI History of Present Illness Chief Complaint: Abd Pain Informant: patient and spouse/S.O. Abdominal Pain/Flank Pain Onset: Today Context: Gradual Onset Timing: Continuous Quality: Cramping Location: Diffuse Current Severity: Moderate Maximum Severity: Moderate Worsened by: Nothing Relieved by: Nothing Nausea/Vomiting/Emesis GI Symptom: Positive for Nausea and Vomiting Severity: Mild Diarrhea/Melena/Hematochezia GI Symptom: Positive for Diarrhea; Negative for Melena or Hematochezia Onset: Today Stool Quality: Positive for Loose Severity: Mild Associated Symptoms Associated Symptoms: Negative for Dysuria, Frequency, Hematuria or Urgency Narrative Narrative: 18-year-old male history of chronic abdominal pain without a specific cause. He was actually seen earlier today for similar symptoms since that time is gotten worse. His significant other is with him. Patient's had this for years he has had extensive work-ups reportedly by GI and they have all been negative. He has had upper and lower endoscopy that did not show a specific cause. He does have a history of gastritis and anxiety. When he gets these episodes he gets anxious he starts hyperventilating and his symptoms get worse. Today associated with that he had diffuse abdominal cramping with nausea and vomiting. And diarrhea. No melena. No fever. No dysuria. No hematemesis. He has never had any other abdominal surgeries other than an appendectomy years ago. Prior similar symptoms: Yes Recent Illness/Hospitalization: No PFSH PFS Medical History Abdominal pain Nausea and vomiting Subclinical hypothyroidism Vitamin D deficiency Home Medications omeprazole 40 mg capsule,delayed release 40 mg PO DAILY 4 weeks #28 caps 09/02/21 [Rx Last Taken Unknown] ondansetron 4 mg disintegrating tablet 4 mg PO Q8H PRN nausea and vomiting #10 tabs 09/02/21 [Rx Last Taken Unknown] sucralfate 1 gram tablet 1 g PO BID #30 tabs 09/02/21 [Rx Last Taken Unknown] cholecalciferol (vitamin D3) 100 mcg (4,000 unit) capsule 100 mcg PO DAILY 09/04/21 [History Last Taken Unknown] ondansetron 4 mg disintegrating tablet 4 mg PO Q8H PRN PRN Nausea #10 tabs 11/23/21 [Rx Last Taken Unknown] prednisone 10 mg tablet tab 11/23/21 [History Last Taken Unknown] promethazine 25 mg rectal suppository 25 mg DC Q6H PRN nausea and vomiting #12 ea 11/23/21 [Rx Last Taken Unknown] Allergy/AdvReac Type Severity Reaction Status Date / Time adhesive tape Allergy Rash Verified 11/27/21 10:48 ibuprofen [From Motrin] AdvReac Upset Verified 11/27/21 10:48 Stomach Tegaderm IV Guard AdvReac Rash Uncoded 11/27/21 10:48 Family History Mother Asthma Surgical History History of appendectomy Social History household members: significant other Smoking Status: Current every day smoker tobacco type: cigarettes alcohol intake: never substance use type: marijuana ROS ROS ED ROS Narrative Abdominal cramping. Nausea, vomiting and diarrhea. Review of Systems ROS Unobtainable: Denies due to encephalopathy Constitutional Constitutional ED: Denies chills or fever(s) ENT ENT ED: Denies ear pain Cardiovascular Cardiovascular: Denies chest pain Respiratory/Chest Respiratory/Chest: Denies cough or dyspnea Gastrointestinal Gastrointestinal: Reports abdominal pain, diarrhea, nausea and vomiting; Denies constipation or melena Genitourinary Genitourinary ED: Denies dysuria or hematuria Musculoskeletal Musculoskeletal: Denies arthralgias Integumentary Denies abscess Neurologic Neurologic: Denies headache(s) Psychiatric Psychiatric: Denies anxiety Endocrine Endocrinology: Denies polydipsia Hematologic/Lymphatic Hematologic/Lymphatic: Denies easy bleeding Allergic/Immunologic Allergic/Immunologic ED: Denies mouth swelling EXAM Physical Exam Narrative Exam Narrative: 26-year-old male clinically anxious. Vital signs stable afebrile. H EENT exam unremarkable. Moist membranes. Neck nontender no lymphadenopathy. Lungs clear to auscultation bilaterally. Heart regular rhythm rate about 70. Abdomen soft no peritoneal signs. Nondistended. Normal bowel sounds. He is diffusely tender. Neurologically is awake and alert with no focal motor deficits. Patient is very anxious. Const Vital Signs: 11/27/21 10:46 Temperature 97.8 F Temperature Source Temporal Pulse Rate 72 Respiratory Rate 14 Blood Pressure 150/100 H Blood Pressure Mean 116 Pulse Ox 100 Oxygen Delivery Method Room Air Positive well nourished, well developed and obese; Negative for cachectic, contractures or unkempt General Appearance ED: well developed; Negative for unkempt, cachectic, contractures or pallor Nutritional Appearance: obese; Negative for cachectic HEENT Reports moist mucous membranes normocephalic and atraumatic; Negative for trauma or tenderness Eyes PERRL and EOMs intact bilaterally General Eye ED: Negative for pale conjunctiva or scleral icterus Neck no lymphadenopathy, supple and no JVD General: Negative for tenderness Lymph Lymphatic: Negative for other Resp normal respiratory effort and clear to auscultation bilaterally Effort and Inspection: Negative for respiratory distress or retractions Auscultation: Negative for rales, rhonchi or wheezes Cardio regular rate, regular rhythm, S1 normal heart sound, S2 normal heart sound and no murmurs Rate: Negative for bradycardia Rhythm: Negative for abnormal rhythm GI non-distended and no masses; Negative for non-tender Inspection: Negative for abdominal distention Auscultation: normoactive bowel sounds Palpation: soft and tender; Negative for guarding, rigid, hernia, mass or pulsatile mass Back/Spine no CVA tenderness General Back: Negative for CVA tenderness Extremity full ROM General Extremety ED: Negative for edema or tenderness General Extremity: Negative for edema Neuro moves all extremities Sensorium / Orientation: alert Motor Exam: strength 5/5 throughout Psych Negative for mental status grossly normal Appearance: Negative for unkempt Attitude: No agitated Mood & Affect: anxious; Negative for depressed Skin no wounds General Skin Exam: Negative for jaundice or pallor Lesions: no lesions Rashes: no rashes Trauma: Negative for abrasion Nails: Negative for discolored MDM MDM MDM Narrative Medical decision making narrative: 26-year-old history of anxiety and chronic abdominal pain of uncertain etiology. He has had extensive work-ups in the past. He will be given IV Ativan, Zofran for nausea and Toradol for pain and reassess. I do not think he needs any work- up. He did prior CAT scans that were unremarkable. This is a chronic condition and appears to have psychological basis attributed to his anxiety. Repeat exam patient is doing quite well at 1:14 PM. Recurrent with him being discharged home. He is up walking he is going to the bathroom. His abdomen is currently benign. Both the patient and his significant other realize that his anxiety is a large component of this and if he gets that significantly improved it will also help him with this abdominal pain. Discharge Plan Triage Chief Complaint: Abd Pain ED Provider: Shashi Conde Dx/Rx/DC Orders Clinical Impression: Abdominal pain, Panic attack Instructions: Abdominal Pain, ED Panic Attack Prescriptions: No Action ondansetron 4 mg tablet,disintegrating 4 mg PO Q8H PRN (Reason: nausea and vomiting) Qty: 10 0RF omeprazole 40 mg capsule,delayed release(DR/EC) 40 mg PO DAILY 28 Days Qty: 28 0RF sucralfate 1 gram tablet 1 g PO BID Qty: 30 0RF cholecalciferol (vitamin D3) 100 mcg (4,000 unit) Capsule 100 mcg PO DAILY prednisone 10 mg tablet ondansetron [ondansetron] 4 mg tablet,disintegrating 4 mg PO Q8H PRN PRN (Reason: Nausea) Qty: 10 0RF promethazine 25 mg suppository 25 mg DC Q6H PRN (Reason: nausea and vomiting) Qty: 12 0RF Primary Care Provider: Lizett Chavez Referrals: Counseling,Center [GROUP OF PHYSICIANS] - As soon as possible Lizett Chavez MD [Primary Care Provider] - As soon as possible Activity Restrictions/Additional Instructions: Call and follow-up with either your primary care physician or the counseling center to be started on an antianxiety medication and/or antianxiety treatment plan such as exercise, meditation, yoga etc. Disposition Disposition: Home, Self Care
[2021-11-27] MEDS: LORazepam 2 MG/ML Syringe 1 MG IV (11:36)
[2021-11-27] MEDS: Ondansetron 4 MG/2 ML Vial IV (11:38)
[2021-11-27] MEDS: Ketorolac 30 MG/ML Syringe IV (11:38)
[2021-11-27] MEDS: Dicyclomine 20 MG/2 ML Vial IM (11:42)
== END 2021-11-27 13:23 | disposition home or self-care (01) ==
PROVIDERS: Emergency Provider Emergency Medicine; PCP Internal Medicine; Visit Provider Emergency Medicine
DX: R10.13 Epigastric pain (principal); F12.90 Cannabis use, unspecified, uncomplicated; F17.210 Nicotine dependence, cigarettes, uncomplicated; F41.0 Panic disorder [episodic paroxysmal anxiety]; E66.9 Obesity, unspecified
CPT/HCPCS: 96372; 96374; 96375; 99283; A4216; J2405

== ENCOUNTER 2021-12-31 10:02 | Emergency (ER) | payer MEDICAID, SELFPAY ==
[2021-12-31 10:03] VITALS: BP 145/88; PULSE 72; RESP 24; TEMP 36.6; O2SAT 100; BMI 31.7
--- NOTE | 2021-12-31 10:34 | ED.VIS.GI ---
HPI HPI - GI History of Present Illness Chief Complaint: Abd Pain Detail of Chief Complaint: Abdominal pain started this morning upon waking Informant: patient and spouse/S.O. Abdominal Pain/Flank Pain Current Severity: Severe Narrative Narrative: Patient presents with abdominal pain that started this morning upon waking up. 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 Patient is also had multiple ER visits for this. Patient did have an episode of diarrhea this morning and has vomited several times and the significant other noted some specks of blood within the vomit. Patient describes upper abdomen diffuse pain. Patient states the pain is severe. Patient has not had any fevers. Pain is similar to what he had prior. Patient has had significant work-up in the past including recent CT scan of the abdomen pelvis that was unremarkable. Prior similar symptoms: Yes PFSH PFSH Medical History Abdominal pain Nausea and vomiting Subclinical hypothyroidism Vitamin D deficiency Home Medications omeprazole 40 mg capsule,delayed release 40 mg PO DAILY 4 weeks #28 caps 09/02/21 [Rx Last Taken Unknown] ondansetron 4 mg disintegrating tablet 4 mg PO Q8H PRN nausea and vomiting #10 tabs 09/02/21 [Rx Last Taken Unknown] escitalopram oxalate 10 mg tablet (Lexapro) 10 mg PO DAILY #30 tabs 12/01/21 [Rx Last Taken Unknown] Allergy/AdvReac Type Severity Reaction Status Date / Time adhesive tape Allergy Rash Verified 12/01/21 14:03 ibuprofen [From Motrin] AdvReac Upset Verified 12/01/21 14:03 Stomach Family History Mother Asthma Surgical History History of appendectomy Social History household members: significant other Smoking Status: Current every day smoker tobacco type: cigarettes alcohol intake: never substance use type: marijuana ROS ROS ED Review of Systems ROS Unobtainable: other Constitutional Constitutional ED: Reports lethargy; Denies chills, fever(s), sweats or weight loss Eyes Eyes: Denies blurry vision, change in vision or diplopia ENT ENT ED: Denies rhinorrhea or sore throat Cardiovascular Cardiovascular: Reports chest pain and racing heartbeat; Denies orthopnea Respiratory/Chest Respiratory/Chest: Reports dyspnea and dyspnea on exertion; Denies cough, orthopnea or sputum Gastrointestinal Gastrointestinal: Reports abdominal pain, diarrhea, nausea and vomiting Genitourinary Genitourinary ED: Denies dysuria, hematuria or urinary frequency Musculoskeletal Musculoskeletal: Denies arthralgias, back pain, myalgias or neck pain Integumentary Denies abscess, Abrasions or rash Neurologic Neurologic: Denies headache(s) or weakness Psychiatric Psychiatric: Denies anxiety, depression or suicidal thoughts Endocrine Endocrinology: Denies polydipsia, polyphagia or polyuria Hematologic/Lymphatic Hematologic/Lymphatic: Denies easy bleeding, easy bruising or lymphadenopathy Allergic/Immunologic Allergic/Immunologic ED: Denies mouth swelling, tongue swelling or urticaria EXAM Physical Exam Const Vital Signs: 12/31/21 10:03 Temperature 97.8 F Temperature Source Temporal Pulse Rate 72 Respiratory Rate 24 H Blood Pressure 145/88 H Blood Pressure Mean 107 Pulse Ox 100 Oxygen Delivery Method Room Air Positive well nourished and well developed General Appearance ED: well developed and NAD HEENT Reports TM's clear and moist mucous membranes normocephalic and atraumatic; Negative for trauma or tenderness Tympanic Membrane ED: Yes TM's clear Eyes PERRL and EOMs intact bilaterally General Eye ED: Negative for pale conjunctiva or scleral icterus Neck no lymphadenopathy, supple and no JVD General: Negative for tenderness Chest Wall inspection of chest normal and palpation of chest normal Chest: Negative for tenderness Resp normal respiratory effort and clear to auscultation bilaterally Effort and Inspection: Negative for respiratory distress or pain with movement Auscultation: Negative for rhonchi, wheezes or diminished lung sounds Cardio regular rate, regular rhythm, S1 normal heart sound, S2 normal heart sound and no murmurs Peripheral Pulses: pulses 2+ throughout GI normal to inspection, nondistended, normoactive bowel sounds, soft to palpation, non-distended and no masses GI Narrative: Diffuse tenderness palpation the epigastric region and diffusely. There is no rebound, rigidity, or peritoneal Signs. Abdomen soft. Back/Spine no CVA tenderness and no thoracic nor lumbar tenderness Extremity normal to inspection General Extremety ED: Negative for edema General Extremity: Negative for edema Neuro oriented x3, CN's II-XII intact bilaterally, no sensory deficits noted and gait normal Sensorium / Orientation: awake, alert, oriented to person, oriented to place and oriented to time Motor Exam: strength 5/5 throughout and strength abnormal Psych mental status grossly normal Skin no rashes or lesions noted and no wounds MDM MDM MDM Narrative Medical decision making narrative: Line established. Patient was given treatment for cyclic vomiting syndrome and no narcotics were given as she does have history of a care plan for no narcotics unless there is verifiable pain. Patient still complain of some nausea after initial treatment but was feeling significantly improved and he had no further vomiting. He was given a dose of Zofran. Patient will be discharged to home. He does have history of chronic abdominal pain and anxiety. 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 Lab Data Attestation: I reviewed the patient's lab results. Labs: Laboratory Results - last 24 hr 12/31/21 12/31/21 10:46 10:46 WBC 13.3 H RBC 4.78 Hgb 14.8 Hct 43.6 MCV 91.2 MCH 31.0 MCHC 33.9 RDW Std Deviation 41.5 RDW Coeff of Tanya 12.6 Plt Count 333 MPV 9.9 Immature Gran % (Auto) 0.400 Neut % (Auto) 73.4 H Lymph % (Auto) 19.4 [place] % (Auto) 5.5 Eos % (Auto) 0.8 Baso % (Auto) 0.5 Absolute Neuts (auto) 9.8 H Absolute Lymphs (auto) 2.59 Nucleated RBC % 0 Sodium 139 Potassium 3.5 Chloride 108 H Carbon Dioxide 20.0 L Anion Gap 11 BUN 10 Creatinine 1.21 Estim Creat Clear Calc 90.89 Est GFR (MDRD) Af Amer 92 Est GFR (MDRD) Non-Af 76 BUN/Creatinine Ratio 8.3 L Glucose 117 H Calcium 10.1 Total Bilirubin 0.30 AST 25 ALT 38 Alkaline Phosphatase 70 Total Protein 8.3 H Albumin 4.2 Globulin 4.1 Albumin/Globulin Ratio 1.0 Lipase 134 Discharge Plan Triage Chief Complaint: Abd Pain ED Provider: Adelina Jefferson Dx/Rx/DC Orders Clinical Impression: Abdominal pain, Nausea & vomiting, Nila-Stewart tear Instructions: Nila-Stewart Tear, ED Anxiety Reaction, ED Abdominal Pain Unkn Cause Male... Prescriptions: No Action escitalopram oxalate [Lexapro] 10 mg tablet 10 mg PO DAILY Qty: 30 1RF ondansetron 4 mg tablet,disintegrating 4 mg PO Q8H PRN (Reason: nausea and vomiting) Qty: 10 0RF omeprazole 40 mg capsule,delayed release(DR/EC) 40 mg PO DAILY 28 Days Qty: 28 0RF Primary Care Provider: Lizett Chavez Referrals: Lizett Chavez MD [Primary Care Provider] - Friend,DO Franco [Med Staff - Active Staff] - 3-5 Days Disposition Disposition: Home, Self Care
[2021-12-31] MEDS: LORazepam 2 MG/ML Syringe 0.5 MG IV (10:45)
[2021-12-31] MEDS: Ondansetron 4 MG/2 ML Vial IV ×2 (10:45→11:54)
[2021-12-31] MEDS: 0.9% Normal Saline 1,000 ML 125 ML IV (10:52)
[2021-12-31] MEDS: Famotidine 200 MG/20 ML MDV 20 MG in 0.9% Normal Saline (Pres. free 8 ML 300 MG IV (10:52)
[2021-12-31 10:53] LABS: Absolute Lymphocyte Count 2.59 X10^3/uL (0.83-4.51); Absolute Neutrophil Count 9.8 X10^3/uL (2.0-7.7); Basophil# 0.06 X10^3/uL; Basophil% 0.5 % (0-1); Eosinophil# 0.11 X10^3/uL; Eosinophils% 0.8 % (0-5); Hematocrit 43.6 % (40-54); Hemoglobin 14.8 g/dL (13.0-16.5); Lymphocyte # 2.59 X10^3/ul (0.83-4.51); Lymphocyte % 19.4 % (19-41); Mean Corp Hgb Conc 33.9 g/dL (32-36); Mean Corpuscular Volume 91.2 fL (80-94); Mean Platelet Vol. 9.9 fl (6.2-12.0); Monocyte# 0.73 X10^3/uL; Monocyte% 5.5 % (0-10); NRBC Flagged by Analyzer 0 % (0-5); Neutrophil # 9.79 X10^3/uL (2.7-7.7); Neutrophil % 73.4 % (47-70); Platelet Count 333 K/mm3 (150-450); RBC Distribution Width CV 12.6 % (11.6-14.6); RBC Distribution Width SD 41.5 fl (35.1-43.9); Red Blood Count 4.78 M/mm3 (4.6-6.2); White Blood Count 13.3 K/mm3 (4.4-11.0)
[2021-12-31 11:08] LABS: AST(SGOT) 25 U/L (15-37); Alanine Aminotransfer ALT/SGPT 38 U/L (16-61); Albumin, Serum 4.2 g/dL (3.2-5.0); Alkaline Phosphatase 70 U/L (45-117); Anion Gap 11 (5-15); BUN 10 mg/dL (7-18); BUN/Creat Ratio 8.3 RATIO (10-20); Calcium,Total 10.1 mg/dL (8.5-10.1); Chloride 108 mmol/L (98-107); Creatinine, Serum 1.21 mg/dL (0.70-1.30); EST Glomerular Filtration Rate 76 mL/min (>60); Est Glom Filt Rate - Afr Amer 92 mL/min (>60); Estimated Creatinine Clearance 90.89 ml/min; Globulin 4.1 g/dL (2.2-4.2); Glucose 117 mg/dL (74-106); Lipase 134 U/L (73-393); Potassium 3.5 mmol/L (3.5-5.1); Protein, Total 8.3 g/dL (6.4-8.2); Sodium Level 139 mmol/L (136-145)
[2021-12-31 12:15] VITALS: BP 132/91
== END 2021-12-31 12:15 | disposition home or self-care (01) ==
PROVIDERS: Emergency Provider Emergency Medicine; PCP Internal Medicine; Visit Provider Emergency Medicine
DX: R10.9 Unspecified abdominal pain (principal); R11.2 Nausea with vomiting, unspecified; K22.6 Gastro-esophageal laceration-hemorrhage syndrome; F41.9 Anxiety disorder, unspecified; R19.7 Diarrhea, unspecified; Z79.899 Other long term (current) drug therapy; F17.210 Nicotine dependence, cigarettes, uncomplicated
CPT/HCPCS: 80053; 83690; 85025; 96361; 96365; 96375; 96376; 99283; J7030; A4216; J2405; J3490

== ENCOUNTER 2022-01-02 06:06 | Emergency (ER) | payer MEDICAID, SELFPAY ==
[2022-01-02 06:08] VITALS: BP 159/106; PULSE 87; RESP 29; TEMP 36.8; O2SAT 100; BMI 31.7
--- NOTE | 2022-01-02 06:15 | EDS_ITS ---
HPI HPI - GI History of Present Illness Chief Complaint: Abd Pain Informant: patient Abdominal Pain/Flank Pain Onset: Hours (6) Context: Gradual Onset Timing: Continuous Quality: - (pain) Location: Diffuse (mostly periumbilical) Current Severity: Severe Maximum Severity: Severe Worsened by: - (anxiety, vomiting) Relieved by: Nothing Nausea/Vomiting/Emesis GI Symptom: Positive for Nausea and Vomiting Quality: Positive for Nonbilious; Negative for Blood streaks, Coffee ground or Hematemesis Diarrhea/Melena/Hematochezia GI Symptom: Positive for Diarrhea; Negative for Melena or Hematochezia Onset: Today Associated Symptoms Associated Symptoms: Negative for Dysuria, Frequency, Hematuria or Urgency Narrative Narrative: Patient provides limited details on his recurrent severe abdominal pain that he has been seen for multiple times in this emergency department. He has been vomiting. He drove here himself. He is hysterical, crying in pain. He answers yes and no questions for the most part and provide some other details intermittently. He states his pain was gone for a while but recently came back and he was seen here in the ER multiple times for it. He has had multiple negative work-ups in emergency department and seeing GI as well. He denies any new symptoms. [facility] Medical History (Updated 01/02/22 @ 06:[address] Agus Ruby MD) Abdominal pain Depression Former smoker Nausea and vomiting Subclinical hypothyroidism Vitamin D deficiency Home Medications omeprazole 40 mg capsule,delayed release 40 mg PO DAILY 4 weeks #28 caps 09/02/21 [Rx Last Taken Unknown] ondansetron 4 mg disintegrating tablet 4 mg PO Q8H PRN nausea and vomiting #10 tabs 09/02/21 [Rx Last Taken Unknown] escitalopram oxalate 10 mg tablet (Lexapro) 10 mg PO DAILY #30 tabs 12/01/21 [Rx Last Taken Unknown] Allergy/AdvReac Type Severity Reaction Status Date / Time adhesive tape Allergy Rash Verified 12/01/21 14:03 ibuprofen [From Motrin] AdvReac Upset Verified 12/01/21 14:03 Stomach Family History Mother Asthma Surgical History History of appendectomy Social History household members: significant other Smoking Status: Former smoker alcohol intake: never substance use type: marijuana ROS ROS ED Constitutional Constitutional ED: Denies chills or fever(s) Eyes Eyes: Denies change in vision or diplopia ENT ENT ED: Denies rhinorrhea or sore throat Cardiovascular Cardiovascular: Denies chest pain or palpitations Respiratory/Chest Respiratory/Chest: Denies cough or dyspnea Gastrointestinal Gastrointestinal: Reports abdominal pain, diarrhea, nausea and vomiting Genitourinary Genitourinary ED: Denies dysuria or hematuria Musculoskeletal Musculoskeletal: Denies back pain or neck pain Integumentary Denies abscess or rash Neurologic Neurologic: Denies headache(s), paresthesias or weakness Psychiatric Psychiatric: Reports anxiety; Denies suicidal thoughts EXAM Physical Exam Const Vital Signs: 01/02/22 06:08 01/02/22 06:35 Temperature 98.3 F Temperature Source Temporal Pulse Rate 87 65 Respiratory Rate 29 H 20 H Blood Pressure 159/106 H 144/80 H Blood Pressure Mean 123 101 Pulse Ox 100 99 Oxygen Delivery Method Room Air Room Air Positive well nourished and well developed Constitutional Narrative: In acute painful distress General Appearance ED: well developed HEENT Reports moist mucous membranes normocephalic and atraumatic Eyes PERRL and EOMs intact bilaterally Neck full ROM and supple Resp normal respiratory effort and clear to auscultation bilaterally Cardio regular rate, regular rhythm and no murmurs Rate: Negative for tachycardic GI non-distended GI Narrative: Tender epigastrium and periumbilical voluntary guarding. No rebound tenderness. Nondistended with normal bowel sounds present. Auscultation: normoactive bowel sounds Palpation: soft Back/Spine no CVA tenderness General Back: other FROM Extremity normal to inspection General Extremety ED: Negative for edema, pulses abnormal or tenderness General Extremity: Negative for edema or pulses abnormal Neuro oriented x3, CN's II-XII intact bilaterally and no sensory deficits noted Sensorium / Orientation: awake and alert Motor Exam: strength 5/5 throughout Psych Attitude: agitated Mood & Affect: anxious and tearful Skin no rashes or lesions noted and no wounds MDM MDM MDM Narrative Medical decision making narrative: Patient does have a higher white blood count than he had before. However his symptoms are identical. I do not think he needs to have another CT, several of which have been normal prior, just because his white blood count has gone higher than it was before. Furthermore, the patient was absolutely hysterical, which can absolutely cause demargination of white blood cells and give you a leukocytosis which is what I think is happening. I have seen this patient with this problem before as have other providers, and independently several physicians have documented a likely psychologic component here. For that reason I gave him Thorazine for nausea since it also could help with his agitation and hopefully his other symptoms. I additionally gave him IV Protonix, morphine, and Toradol. On reexamination he is now resting comfortably. He is somnolent but easily alerts to voice. He states that the pain is much better and barely there and he just needs time. He will be observed until awake enough to be discharged. Lab Data Attestation: I reviewed the patient's lab results. Labs: Laboratory Results - last 24 hr 01/02/22 01/02/22 06:15 06:15 WBC 17.9 H RBC 4.70 Hgb 14.5 Hct 43.2 MCV 91.9 MCH 30.9 MCHC 33.6 RDW Std Deviation 42.6 RDW Coeff of Tanya 12.6 Plt Count 304 MPV 10.0 Immature Gran % (Auto) 0.500 Neut % (Auto) 84.0 H Lymph % (Auto) 10.1 L [place] % (Auto) 5.0 Eos % (Auto) 0.1 Baso % (Auto) 0.3 Absolute Neuts (auto) 15.1 H Absolute Lymphs (auto) 1.81 Nucleated RBC % 0 Sodium 138 Potassium 3.4 L Chloride 103 Carbon Dioxide 25.0 Anion Gap 10 BUN 11 Creatinine 1.28 Estim Creat Clear Calc 85.92 Est GFR (MDRD) Af Amer 86 Est GFR (MDRD) Non-Af 71 BUN/Creatinine Ratio 8.6 L Glucose 112 H Calcium 9.5 Total Bilirubin 0.40 AST 24 ALT 33 Alkaline Phosphatase 69 Total Protein 8.9 H Albumin 4.5 Globulin 4.4 H Albumin/Globulin Ratio 1.0 Lipase 126 Discharge Plan Triage Chief Complaint: Abd Pain ED Provider: Agus Ruby Dx/Rx/DC Orders Clinical Impression: Diffuse abdominal pain, Chronic abdominal pain Instructions: Abdominal Pain Prescriptions: No Action escitalopram oxalate [Lexapro] 10 mg tablet 10 mg PO DAILY Qty: 30 1RF ondansetron 4 mg tablet,disintegrating 4 mg PO Q8H PRN (Reason: nausea and vomiting) Qty: 10 0RF omeprazole 40 mg capsule,delayed release(DR/EC) 40 mg PO DAILY 28 Days Qty: 28 0RF Primary Care Provider: Lizett Chavez Referrals: Lizett Chavez MD [Primary Care Provider] - Joanna,DO Franco [Med Staff - Active Staff] - 3-5 Days if not improving Disposition Disposition: Home, Self Care
[2022-01-02 06:22] LABS: Absolute Lymphocyte Count 1.81 X10^3/uL (0.83-4.51); Absolute Neutrophil Count 15.1 X10^3/uL (2.0-7.7); Basophil# 0.05 X10^3/uL; Basophil% 0.3 % (0-1); Eosinophil# 0.02 X10^3/uL; Eosinophils% 0.1 % (0-5); Hematocrit 43.2 % (40-54); Hemoglobin 14.5 g/dL (13.0-16.5); Lymphocyte # 1.81 X10^3/ul (0.83-4.51); Lymphocyte % 10.1 % (19-41); Mean Corp Hgb Conc 33.6 g/dL (32-36); Mean Corpuscular Hgb 30.9 pg (27.0-32.0); Mean Corpuscular Volume 91.9 fL (80-94); Monocyte# 0.89 X10^3/uL; NRBC Flagged by Analyzer 0 % (0-5); Neutrophil # 15.05 X10^3/uL (2.7-7.7); Platelet Count 304 K/mm3 (150-450); RBC Distribution Width CV 12.6 % (11.6-14.6); RBC Distribution Width SD 42.6 fl (35.1-43.9); White Blood Count 17.9 K/mm3 (4.4-11.0)
[2022-01-02] MEDS: Morphine 4 MG/ML Syringe IV (06:22)
[2022-01-02] MEDS: Ketorolac 30 MG/ML Syringe IV (06:24)
[2022-01-02] MEDS: 0.9% Normal Saline 1,000 ML 1000 ML IV (06:25)
[2022-01-02] MEDS: ChlorproMAZINE 50 MG/2 ML Ampul 25 MG IV (06:25)
[2022-01-02 06:35] VITALS: BP 144/80; PULSE 65; RESP 20; O2SAT 99
[2022-01-02 06:38] LABS: AST(SGOT) 24 U/L (15-37); Alanine Aminotransfer ALT/SGPT 33 U/L (16-61); Albumin, Serum 4.5 g/dL (3.2-5.0); Alkaline Phosphatase 69 U/L (45-117); Anion Gap 10 (5-15); BUN 11 mg/dL (7-18); BUN/Creat Ratio 8.6 RATIO (10-20); Calcium,Total 9.5 mg/dL (8.5-10.1); Chloride 103 mmol/L (98-107); Creatinine, Serum 1.28 mg/dL (0.70-1.30); EST Glomerular Filtration Rate 71 mL/min (>60); Est Glom Filt Rate - Afr Amer 86 mL/min (>60); Estimated Creatinine Clearance 85.92 ml/min; Globulin 4.4 g/dL (2.2-4.2); Glucose 112 mg/dL (74-106); Lipase 126 U/L (73-393); Potassium 3.4 mmol/L (3.5-5.1); Protein, Total 8.9 g/dL (6.4-8.2); Sodium Level 138 mmol/L (136-145)
[2022-01-02 07:46] VITALS: BP 126/63; PULSE 84; RESP 18; O2SAT 97
== END 2022-01-02 07:54 | disposition home or self-care (01) ==
PROVIDERS: Emergency Provider Emergency Medicine; PCP Internal Medicine; Visit Provider Emergency Medicine
DX: R10.13 Epigastric pain (principal); R10.33 Periumbilical pain; G89.29 Other chronic pain; R11.2 Nausea with vomiting, unspecified; Z87.891 Personal history of nicotine dependence
CPT/HCPCS: 80053; 83690; 85025; 96361; 96374; 96375; 99283; A4216

== ENCOUNTER 2022-01-03 10:04 | Emergency (ER) | payer MEDICAID, SELFPAY ==
[2022-01-03 10:05] VITALS: PULSE 69; RESP 18; TEMP 37.1; O2SAT 100; BMI 29.5
--- NOTE | 2022-01-03 10:40 | EDS_ITS ---
HPI History of Present Illness Chief Complaint: Abd Pain Informant: patient Onset/Context/Timing Onset: Days (5 days) Context: Gradual Onset Timing: Waxes and wanes Current Severity: Severe Maximum Severity: Severe Narrative Narrative: Patient presents secondary to continued abdominal pain with nausea, vomiting, diarrhea. Patient has history of chronic abdominal pain with recurrent cycles similar to this. Has been seen in this emergency room multiple times with extensive work-ups in the past. Patient states this particular flare started on Sunday. He was seen in the emergency room on both the as well as the . Patient denies fever or chills. He states on Sunday there was some blood in his vomitus but none since. No blood in his stool. [facility] Medical History Abdominal pain Depression Former smoker Nausea and vomiting Subclinical hypothyroidism Vitamin D deficiency Home Medications omeprazole 40 mg capsule,delayed release 40 mg PO DAILY 4 weeks #28 caps 09/02/21 [Rx Last Taken Unknown] escitalopram oxalate 10 mg tablet (Lexapro) 10 mg PO DAILY #30 tabs 12/01/21 [Rx Last Taken Unknown] ondansetron 4 mg disintegrating tablet 4 mg PO Q8H PRN nausea and vomiting #10 tabs 01/03/22 [Rx Last Taken Unknown] ondansetron 4 mg disintegrating tablet 4 mg PO Q8H PRN nausea and vomiting #20 tabs 01/03/22 [Rx Last Taken Unknown] Allergy/AdvReac Type Severity Reaction Status Date / Time adhesive tape Allergy Rash Verified 01/03/22 10:06 ibuprofen [From Motrin] AdvReac Upset Verified 01/03/22 10:06 Stomach Family History Mother Asthma Surgical History History of appendectomy Social History household members: significant other Smoking Status: Former smoker alcohol intake: never substance use type: marijuana ROS ROS ED Constitutional Constitutional ED: Denies chills or fever(s) Eyes Eyes: Denies change in vision or discharge from eye(s) ENT ENT ED: Denies discharge from eye(s), rhinorrhea or sore throat Cardiovascular Cardiovascular: Denies chest pain or palpitations Respiratory/Chest Respiratory/Chest: Denies cough or dyspnea Gastrointestinal Gastrointestinal: Reports abdominal pain, diarrhea, nausea and vomiting Genitourinary Genitourinary ED: Denies difficulty urinating or dysuria Musculoskeletal Musculoskeletal: Denies back pain or extremity pain Integumentary Denies Abrasions or rash Neurologic Neurologic: Denies headache(s) or weakness Psychiatric Psychiatric: Denies anxiety or depression Allergic/Immunologic Allergic/Immunologic ED: Denies lip swelling or urticaria EXAM Physical Exam Const Vital Signs: 01/03/22 10:05 01/03/22 12:27 01/03/22 14:38 Temperature 98.7 F Temperature Source Temporal Pulse Rate 69 69 72 Respiratory Rate 18 12 20 H Blood Pressure 137/73 H 168/97 H Blood Pressure Mean 94 120 Pulse Ox 100 Oxygen Delivery Method Room Air Room Air Positive well nourished and well developed General Appearance ED: well developed HEENT Reports normocephalic, head/scalp atraumatic and moist mucous membranes Eyes PERRL and EOMs intact bilaterally Neck supple Chest Wall inspection of chest normal and palpation of chest normal Resp normal respiratory effort and clear to auscultation bilaterally Cardio regular rate and regular rhythm GI GI Narrative: Diffuse abdominal tenderness palpation. Bowel sounds are present. Palpation: soft Extremity normal to inspection Neuro oriented x3 and no sensory deficits noted Sensorium / Orientation: alert Motor Exam: strength 5/5 throughout Psych mental status grossly normal Skin no rashes or lesions noted MDM MDM MDM Narrative Medical decision making narrative: Patient initially given Zofran, Ativan, Toradol, Bentyl. He is given IV fluids. Lab work obtained. Patient placed on varnisher. Lab Data Attestation: I reviewed the patient's lab results. Labs: Laboratory Results - last 24 hr 01/03/22 01/03/22 11:10 11:10 WBC 10.8 RBC 4.59 L Hgb 14.8 Hct 42.1 MCV 91.7 MCH 32.2 H MCHC 35.2 RDW Std Deviation 42.7 RDW Coeff of Tanya 12.7 Plt Count 282 MPV 10.3 Immature Gran % (Auto) 0.300 Neut % (Auto) 76.8 H Lymph % (Auto) 15.5 L [place] % (Auto) 6.1 Eos % (Auto) 0.9 Baso % (Auto) 0.4 Absolute Neuts (auto) 8.3 H Absolute Lymphs (auto) 1.67 Nucleated RBC % 0 Sodium 141 Potassium 3.6 Chloride 109 H Carbon Dioxide 21.0 Anion Gap 11 BUN 8 Creatinine 1.15 Estim Creat Clear Calc 95.63 Est GFR (MDRD) Af Amer 97 Est GFR (MDRD) Non-Af 80 BUN/Creatinine Ratio 7.0 L Glucose 103 Calcium 9.7 Total Bilirubin 0.50 Direct Bilirubin 0.14 AST 21 ALT 30 Alkaline Phosphatase 66 Total Protein 8.0 Albumin 4.2 Globulin 3.8 Lipase 109 Treatment and Re-Evaluation Narrative: CBC is unremarkable with normal white count. Hemoglobin normal at 14.8. Chemistry studies reveal normal potassium at 3.6. LFTs unremarkable. Lipase normal. Patient reported no significant improvement in his symptoms and was still dry heaving. At that time he was given Thorazine and Benadryl. It does appear patient has received this combination at least twice in the past. On repeat evaluation patient resting comfortably and sleepy. He states he still feels nauseated and is given additional dose of Zofran. Extensive conversation was had with significant other at bedside. She states that she understands that the emergency room can only provide treatment for temporary symptoms. She states he has yet to perform his lab work ordered by Dr. Marshall and knows he needs to follow-up. He does have an appointment with his primary care physician . He will be given a new prescription for Zofran and will follow-up with Dr. Yoder on as scheduled. Discharge Plan Triage Chief Complaint: Abd Pain ED Provider: Fely Mendoza Dx/Rx/DC Orders Clinical Impression: Gastritis, Vomiting Instructions: ED Gastritis (Adult), ED Vomiting (Adult) Prescriptions: New ondansetron 4 mg tablet,disintegrating 4 mg PO Q8H PRN (Reason: nausea and vomiting) Qty: 20 0RF No Action escitalopram oxalate [Lexapro] 10 mg tablet 10 mg PO DAILY Qty: 30 1RF omeprazole 40 mg capsule,delayed release(DR/EC) 40 mg PO DAILY 28 Days Qty: 28 0RF ondansetron 4 mg tablet,disintegrating 4 mg PO Q8H PRN (Reason: nausea and vomiting) Qty: 10 0RF Primary Care Provider: Lizett Chavez Referrals: Lizett Chavez MD [Primary Care Provider] - Keep [facility] appointment Disposition Disposition: Home, Self Care
--- NOTE | 2022-01-03 11:00 | CM.ED ---
Social Work Note Reason for Referral: Pt has ED Care Plan. SW reviewed chart. Pt has ED Care Plan. SW updated MD Mendoza. Alesia Ramos ASSOCIATE PROFESSOR OF ENGLISH, HEALTH AND SAFETY COORDINATOR
[2022-01-03] MEDS: LORazepam 2 MG/ML Syringe 1 MG IV (11:01)
[2022-01-03] MEDS: Ketorolac 30 MG/ML Syringe IV (11:01)
[2022-01-03] MEDS: Dicyclomine 20 MG/2 ML Vial IM (11:01)
[2022-01-03] MEDS: Ondansetron 4 MG/2 ML Vial IV ×2 (11:01→16:11)
[2022-01-03] MEDS: 0.9% Normal Saline 1,000 ML 1000 ML IV (11:01)
[2022-01-03 11:21] LABS: Absolute Lymphocyte Count 1.67 X10^3/uL (0.83-4.51); Absolute Neutrophil Count 8.3 X10^3/uL (2.0-7.7); Basophil# 0.04 X10^3/uL; Basophil% 0.4 % (0-1); Eosinophils% 0.9 % (0-5); Hematocrit 42.1 % (40-54); Hemoglobin 14.8 g/dL (13.0-16.5); Lymphocyte # 1.67 X10^3/ul (0.83-4.51); Lymphocyte % 15.5 % (19-41); Mean Corp Hgb Conc 35.2 g/dL (32-36); Mean Corpuscular Hgb 32.2 pg (27.0-32.0); Mean Corpuscular Volume 91.7 fL (80-94); Mean Platelet Vol. 10.3 fl (6.2-12.0); Monocyte# 0.66 X10^3/uL; Monocyte% 6.1 % (0-10); NRBC Flagged by Analyzer 0 % (0-5); Neutrophil # 8.27 X10^3/uL (2.7-7.7); Neutrophil % 76.8 % (47-70); Platelet Count 282 K/mm3 (150-450); RBC Distribution Width CV 12.7 % (11.6-14.6); RBC Distribution Width SD 42.7 fl (35.1-43.9); Red Blood Count 4.59 M/mm3 (4.6-6.2); White Blood Count 10.8 K/mm3 (4.4-11.0)
[2022-01-03 11:38] LABS: AST(SGOT) 21 U/L (15-37); Alanine Aminotransfer ALT/SGPT 30 U/L (16-61); Albumin, Serum 4.2 g/dL (3.2-5.0); Alkaline Phosphatase 66 U/L (45-117); Anion Gap 11 (5-15); BUN 8 mg/dL (7-18); Bilirubin, Direct 0.14 mg/dL (0.00-0.30); Calcium,Total 9.7 mg/dL (8.5-10.1); Chloride 109 mmol/L (98-107); Creatinine, Serum 1.15 mg/dL (0.70-1.30); EST Glomerular Filtration Rate 80 mL/min (>60); Est Glom Filt Rate - Afr Amer 97 mL/min (>60); Estimated Creatinine Clearance 95.63 ml/min; Globulin 3.8 g/dL (2.2-4.2); Glucose 103 mg/dL (74-106); Lipase 109 U/L (73-393); Potassium 3.6 mmol/L (3.5-5.1); Sodium Level 141 mmol/L (136-145)
--- NOTE | 2022-01-03 12:00 | ED.RN ---
advocate at bedside. provider aware that pt is moaning and stating he's not feeling well.
[2022-01-03] MEDS: 0.9% Normal Saline 1,000 ML 150 ML IV (12:02)
[2022-01-03 12:27] VITALS: BP 137/73; PULSE 69; RESP 12
[2022-01-03 14:38] VITALS: BP 168/97; PULSE 72; RESP 20
[2022-01-03 16:52] VITALS: BP 161/89; PULSE 80; RESP 16; O2SAT 100
== END 2022-01-03 16:53 | disposition home or self-care (01) ==
PROVIDERS: Emergency Provider Emergency Medicine; PCP Internal Medicine; Visit Provider Emergency Medicine
DX: K29.70 Gastritis, unspecified, without bleeding (principal); R11.2 Nausea with vomiting, unspecified; R19.7 Diarrhea, unspecified; F12.90 Cannabis use, unspecified, uncomplicated; Z87.891 Personal history of nicotine dependence
CPT/HCPCS: 80048; 80076; 83690; 85025; 96361; 96365; 96366; 96372; 96375; 96376; 99283; J2405

== ENCOUNTER 2022-01-09 08:55 | Emergency (ER) | payer MEDICAID, SELFPAY ==
[2022-01-09 08:56] VITALS: BP 170/100; PULSE 67; RESP 18; TEMP 36.6; O2SAT 100; BMI 30.2
--- NOTE | 2022-01-09 09:16 | EDS_ITS ---
HPI HPI - GI History of Present Illness Chief Complaint: Abd Pain Informant: patient Abdominal Pain/Flank Pain Onset: Today Context: Sudden Onset Timing: Continuous Quality: Sharp Location: Diffuse Worsened by: - (Anxiety) Relieved by: Nothing Nausea/Vomiting/Emesis GI Symptom: Positive for Nausea and Vomiting Quality: Positive for Nonbilious; Negative for Blood streaks, Coffee ground or Hematemesis Diarrhea/Melena/Hematochezia GI Symptom: Positive for Diarrhea; Negative for Melena or Hematochezia Associated Symptoms Associated Symptoms: Negative for Dysuria, Frequency or Hematuria Narrative Narrative: Patient presents with abdominal pain that began today. Patient states it began rather suddenly. Patient states it is constant. Patient states she has had this frequently over the past few years. Patient states he has been to the emergency department for this multiple times. 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 Patient admits to some nausea and vomiting. Patient denies any hematemesis or coffee-ground emesis. Patient admits to diarrhea but denies any melena or hematochezia. Patient states it is worse when his anxiety gets worse. Patient denies any urinary complaints. [facility] Medical History Abdominal pain Depression Former smoker Nausea and vomiting Subclinical hypothyroidism Vitamin D deficiency Home Medications omeprazole 40 mg capsule,delayed release 40 mg PO DAILY 4 weeks #28 caps 09/02/21 [Rx Last Taken Unknown] ondansetron 4 mg disintegrating tablet 4 mg PO Q8H PRN nausea and vomiting #10 tabs 01/03/22 [Rx Last Taken Unknown] escitalopram oxalate 20 mg tablet 20 mg PO DAILY #90 tabs 01/05/22 [Rx Last Taken Unknown] dicyclomine 10 mg capsule 20 mg PO TIDAC #20 CAPSULES 01/09/22 [Rx Last Taken Unknown] ondansetron 4 mg disintegrating tablet 4 mg PO Q8H PRN PRN Nausea #10 tabs 01/09/22 [Rx Last Taken Unknown] Allergy/AdvReac Type Severity Reaction Status Date / Time adhesive tape Allergy Rash Verified 01/09/22 08:58 ibuprofen [From Motrin] AdvReac Upset Verified 01/09/22 08:58 Stomach Family History Mother Asthma Surgical History History of appendectomy Social History household members: significant other Smoking Status: Former smoker alcohol intake: never substance use type: marijuana ROS ROS ED Constitutional Constitutional ED: Denies chills or fever(s) Eyes Eyes: Denies blurry vision or change in vision ENT ENT ED: Denies rhinorrhea or sore throat Cardiovascular Cardiovascular: Denies chest pain or palpitations Respiratory/Chest Respiratory/Chest: Denies cough or dyspnea Gastrointestinal Gastrointestinal: Reports abdominal pain, diarrhea, nausea and vomiting; Denies melena Genitourinary Genitourinary ED: Denies dysuria or hematuria Musculoskeletal Musculoskeletal: Denies back pain or neck pain Integumentary Denies abscess or rash Neurologic Neurologic: Denies headache(s) or weakness Allergic/Immunologic Allergic/Immunologic ED: Denies mouth swelling or urticaria EXAM Physical Exam Const Vital Signs: 01/09/22 08:56 Temperature 98 F Temperature Source Temporal Pulse Rate 67 Respiratory Rate 18 Blood Pressure 170/100 H Blood Pressure Mean 123 Pulse Ox 100 Oxygen Delivery Method Room Air Positive well nourished and well developed General Appearance ED: well developed HEENT Reports moist mucous membranes Neck supple and no JVD Resp normal respiratory effort and clear to auscultation bilaterally Cardio regular rate, regular rhythm and no murmurs GI normal to inspection, nondistended, normoactive bowel sounds GI Narrative: There is diffuse tenderness on examination. Patient pushes my hand away whenever I try to palpate his abdomen. He was uncooperative with any rebound or guarding testing. Palpation: soft Extremity normal to inspection General Extremety ED: Negative for edema or tenderness General Extremity: Negative for edema Neuro oriented x3, CN's II-XII intact bilaterally and no sensory deficits noted Sensorium / Orientation: alert Motor Exam: strength 5/5 throughout Psych mental status grossly normal MDM MDM MDM Narrative Medical decision making narrative: Patient was given IV fluids, Zofran, and Bentyl here. CBC was within normal limits. Comprehensive metabolic profile was within normal limits. Lipase was normal. Patient was requesting something for anxiety. Patient drove himself to the emergency department so he is unable to be given any sedatives for his anxiety since it will alter his mental status and he will be unable to drive himself home. Patient was advised that he would not be able to be given anything for his anxiety here for those reasons. Patient was instructed to continue his anxiety medications at home as previously prescribed. Patient was given a prescription for Zofran and Bentyl. Patient was instructed to start with a liquid diet and advance as tolerated. Patient was instructed to follow- up with his primary care physician in 3 to 5 days for reevaluation. Patient understood and was agreeable with the plan. All questions were answered. Lab Data Attestation: I reviewed the patient's lab results. Labs: Laboratory Results - last 24 hr 01/09/22 01/09/22 09:30 09:30 WBC 10.4 RBC 4.97 Hgb 15.5 Hct 45.3 MCV 91.1 MCH 31.2 MCHC 34.2 RDW Std Deviation 41.1 RDW Coeff of Tanya 12.4 Plt Count 286 MPV 9.6 Immature Gran % (Auto) 0.500 Neut % (Auto) 72.2 H Lymph % (Auto) 17.5 L [place] % (Auto) 6.8 Eos % (Auto) 2.4 Baso % (Auto) 0.6 Absolute Neuts (auto) 7.5 Absolute Lymphs (auto) 1.82 Nucleated RBC % 0 Sodium 140 Potassium 3.9 Chloride 108 H Carbon Dioxide 22.0 Anion Gap 10 BUN 8 Creatinine 1.10 Estim Creat Clear Calc 99.98 Est GFR (MDRD) Af Amer 102 Est GFR (MDRD) Non-Af 84 BUN/Creatinine Ratio 7.3 L Glucose 107 H Calcium 10.1 Total Bilirubin 0.30 AST 27 ALT 30 Alkaline Phosphatase 67 Total Protein 8.2 Albumin 4.4 Globulin 3.8 Albumin/Globulin Ratio 1.2 Lipase 122 Discharge Plan Triage Chief Complaint: Abd Pain ED Provider: Devante Roberson Dx/Rx/DC Orders Clinical Impression: Abdominal pain, Nausea and vomiting Instructions: ED Abdominal Pain Unkn Cause Male... Prescriptions: New ondansetron [ondansetron] 4 mg tablet,disintegrating 4 mg PO Q8H PRN PRN (Reason: Nausea) Qty: 10 0RF dicyclomine 10 mg capsule 20 mg PO TIDAC Qty: 20 0RF No Action escitalopram oxalate 20 mg tablet 20 mg PO DAILY Qty: 90 1RF omeprazole 40 mg capsule,delayed release(DR/EC) 40 mg PO DAILY 28 Days Qty: 28 0RF ondansetron 4 mg tablet,disintegrating 4 mg PO Q8H PRN (Reason: nausea and vomiting) Qty: 10 0RF Primary Care Provider: Lizett Chavez Referrals: Lizett Chavez MD [Primary Care Provider] - 3-5 Days Franco Marshall DO [Med Staff - Active Staff] - 3-5 Days Disposition Disposition: Home, Self Care
[2022-01-09] MEDS: Dicyclomine 20 MG/2 ML Vial IM (09:33)
[2022-01-09] MEDS: Ondansetron 4 MG/2 ML Vial IV ×2 (09:33→11:20)
[2022-01-09] MEDS: 0.9% Normal Saline 1,000 ML 1000 ML IV (09:33)
[2022-01-09 09:41] LABS: Absolute Lymphocyte Count 1.82 X10^3/uL (0.83-4.51); Absolute Neutrophil Count 7.5 X10^3/uL (2.0-7.7); Basophil# 0.06 X10^3/uL; Basophil% 0.6 % (0-1); Eosinophil# 0.25 X10^3/uL; Eosinophils% 2.4 % (0-5); Hematocrit 45.3 % (40-54); Hemoglobin 15.5 g/dL (13.0-16.5); Lymphocyte # 1.82 X10^3/ul (0.83-4.51); Lymphocyte % 17.5 % (19-41); Mean Corp Hgb Conc 34.2 g/dL (32-36); Mean Corpuscular Hgb 31.2 pg (27.0-32.0); Mean Corpuscular Volume 91.1 fL (80-94); Mean Platelet Vol. 9.6 fl (6.2-12.0); Monocyte# 0.71 X10^3/uL; Monocyte% 6.8 % (0-10); NRBC Flagged by Analyzer 0 % (0-5); Neutrophil % 72.2 % (47-70); Platelet Count 286 K/mm3 (150-450); RBC Distribution Width CV 12.4 % (11.6-14.6); RBC Distribution Width SD 41.1 fl (35.1-43.9); Red Blood Count 4.97 M/mm3 (4.6-6.2); White Blood Count 10.4 K/mm3 (4.4-11.0)
[2022-01-09 09:57] LABS: ALB/GLOB Ratio 1.2 RATIO (0.9-2.4); AST(SGOT) 27 U/L (15-37); Alanine Aminotransfer ALT/SGPT 30 U/L (16-61); Albumin, Serum 4.4 g/dL (3.2-5.0); Alkaline Phosphatase 67 U/L (45-117); Anion Gap 10 (5-15); BUN 8 mg/dL (7-18); BUN/Creat Ratio 7.3 RATIO (10-20); Calcium,Total 10.1 mg/dL (8.5-10.1); Chloride 108 mmol/L (98-107); EST Glomerular Filtration Rate 84 mL/min (>60); Est Glom Filt Rate - Afr Amer 102 mL/min (>60); Estimated Creatinine Clearance 99.98 ml/min; Globulin 3.8 g/dL (2.2-4.2); Glucose 107 mg/dL (74-106); Lipase 122 U/L (73-393); Potassium 3.9 mmol/L (3.5-5.1); Protein, Total 8.2 g/dL (6.4-8.2); Sodium Level 140 mmol/L (136-145)
== END 2022-01-09 12:15 | disposition home or self-care (01) ==
PROVIDERS: Emergency Provider Emergency Medicine; PCP Internal Medicine; Visit Provider Emergency Medicine
DX: R10.9 Unspecified abdominal pain (principal); R11.2 Nausea with vomiting, unspecified; F12.90 Cannabis use, unspecified, uncomplicated; F32.A Depression, unspecified; Z87.891 Personal history of nicotine dependence; Z79.899 Other long term (current) drug therapy
CPT/HCPCS: 80053; 83690; 85025; 96361; 96372; 96374; 96376; 99283; J7030; A4216; J2405

== ENCOUNTER 2022-02-27 09:30 | Emergency (ER) | payer MEDICAID, SELFPAY ==
[2022-02-27 09:30] VITALS: BP 153/93; PULSE 60; RESP 18; TEMP 35.7; O2SAT 99; BMI 30.2
--- NOTE | 2022-02-27 09:40 | CT_ITS ---
STUDY: CT ABDOMEN AND PELVIS WITH CONTRAST REASON FOR EXAM: Male, 26 years old. epigastric abdominal pain RADIATION DOSAGE (If Supplied By Facility): CTDIvol = ( 13.36 ) mGy, DLP = ( 1069.59 ) mGycm TECHNIQUE: Transaxial images were obtained from the dome of the diaphragm to the symphysis pubis without oral contrast. IV 100mL Isovue-300 was administered. Sagittal and coronal images were reconstructed. Individualized dose optimization techniques were used for this CT. COMPARISON: 05/15/2021 FINDINGS: The visualized lung bases are unremarkable. The visualized portions of the heart are within normal limits. Normal liver. Normal gallbladder and extrahepatic biliary system. Normal spleen. Normal pancreas. Normal bilateral adrenal glands. Normal right kidney. Normal left kidney. Normal visualized stomach. Normal small intestine. Normal colon. There is non-visualization of the appendix. Normal abdominal aorta. Normal inferior vena cava. Normal retroperitoneum. Normal urinary bladder. Normal abdominal wall. Normal osseous structures. CT/Abdomen/Pelvis W IV Cont ONLY IMPRESSION: Normal enhanced CT of the abdomen and pelvis. Electronically Signed: Fantasma Beard MD at 11:21 EDT ,
--- NOTE | 2022-02-27 09:43 | EX.ED.DYSGE1 ---
HPI History of Present Illness Chief Complaint: Nausea/Vomiting Informant: patient and friend Narrative Narrative: 26-year-old male presenting with abdominal pain, nausea, vomiting, diarrhea. He states this started early this morning. He has had several episodes of vomiting and diarrhea. He denies blood in his stool or emesis. He complains of diffuse abdominal pain worsened in the epigastric region. History of chronic abdominal pain. He follows with GI, Dr. Friend. He states he is awaiting further testing. Prior similar symptoms: Yes Recent Illness/Hospitalization: No PFSH PFSH Medical History Abdominal pain Depression Former smoker Nausea and vomiting Subclinical hypothyroidism Vitamin D deficiency Home Medications omeprazole 40 mg capsule,delayed release 40 mg PO DAILY 4 weeks #28 caps 09/02/21 [Rx Last Taken Unknown] ondansetron 4 mg disintegrating tablet 4 mg PO Q8H PRN nausea and vomiting #10 tabs 01/03/22 [Rx Last Taken Unknown] escitalopram oxalate 20 mg tablet 20 mg PO DAILY #90 tabs 01/05/22 [Rx Last Taken Unknown] dicyclomine 10 mg capsule 20 mg PO TIDAC #20 CAPSULES 01/09/22 [Rx Last Taken Unknown] ondansetron 4 mg disintegrating tablet 4 mg PO Q8H PRN PRN Nausea #10 tabs 01/09/22 [Rx Last Taken Unknown] ondansetron 4 mg disintegrating tablet 4 mg PO Q8H PRN PRN Nausea #10 tabs 02/27/22 [Rx Last Taken Unknown] Allergy/AdvReac Type Severity Reaction Status Date / Time adhesive tape Allergy Rash Verified 02/27/22 09:33 ibuprofen [From Motrin] AdvReac Upset Verified 02/27/22 09:33 Stomach Family History Mother Asthma Surgical History History of appendectomy Social History household members: significant other Smoking Status: Former smoker alcohol intake: never substance use type: marijuana ROS ROS ED Constitutional Constitutional ED: Denies fever(s) Eyes Eyes: Denies change in vision ENT ENT ED: Denies rhinorrhea or sore throat Cardiovascular Cardiovascular: Denies chest pain or palpitations Respiratory/Chest Respiratory/Chest: Denies cough or dyspnea Gastrointestinal Gastrointestinal: Reports abdominal pain, diarrhea, nausea and vomiting; Denies constipation or melena Genitourinary Genitourinary ED: Denies dysuria Musculoskeletal Musculoskeletal: Denies myalgias Integumentary Denies rash Neurologic Neurologic: Denies headache(s) Psychiatric Psychiatric: Denies suicidal thoughts EXAM Physical Exam Const Vital Signs: 02/27/22 09:30 Temperature 96.2 F L Temperature Source Temporal Pulse Rate 60 Respiratory Rate 18 Blood Pressure 153/93 H Blood Pressure Mean 113 Pulse Ox 99 Oxygen Delivery Method Room Air Positive well nourished and well developed General Appearance ED: well developed HEENT Reports normocephalic and head/scalp atraumatic Eyes PERRL and EOMs intact bilaterally Neck supple General: Negative for tenderness Chest Wall inspection of chest normal Resp normal respiratory effort and clear to auscultation bilaterally Cardio regular rate and regular rhythm GI non-distended GI Narrative: Diffuse tenderness with no rebound or guarding. Palpation: soft and tender epigastric; Negative for guarding or rebound tenderness present no CVA tenderness Extremity normal to inspection Neuro oriented x3 Sensorium / Orientation: alert Psych mental status grossly normal Skin no rashes or lesions noted MDM MDM MDM Narrative Medical decision making narrative: Patient was given IV fluids, Zofran, Ativan, Pepcid. CBC shows white count 12.5. Chemistries unremarkable except glucose 127. Lipase is normal. CT abdomen pelvis with IV contrast shows no acute process. Patient is resting comfortably on reevaluation. He admits to marijuana use. He is advised to discontinue marijuana use. He is given prescription for Zofran. Advised to follow-up with primary care physician and GI. Advised return to ED for worsening complaints. Lab Data Attestation: I reviewed the patient's lab results. Labs: Laboratory Results - last 24 hr 02/27/22 02/27/22 10:22 10:22 WBC 12.5 H RBC 4.78 Hgb 14.7 Hct 43.7 MCV 91.4 MCH 30.8 MCHC 33.6 RDW Std Deviation 43.2 RDW Coeff of Tanya 12.8 Plt Count 276 MPV 9.8 Immature Gran % (Auto) 0.300 Neut % (Auto) 87.0 H Lymph % (Auto) 9.2 L [place] % (Auto) 3.1 Eos % (Auto) 0.1 Baso % (Auto) 0.3 Absolute Neuts (auto) 10.8 H Absolute Lymphs (auto) 1.14 Nucleated RBC % 0 Sodium 141 Potassium 3.5 Chloride 106 Carbon Dioxide 20.0 L Anion Gap 15 BUN 8 Creatinine 1.05 Estim Creat Clear Calc 104.74 Est GFR (MDRD) Af Amer 108 Est GFR (MDRD) Non-Af 89 BUN/Creatinine Ratio 7.6 L Glucose 127 H Calcium 10.0 Total Bilirubin 0.50 AST 35 ALT 48 Alkaline Phosphatase 69 Total Protein 8.0 Albumin 4.2 Globulin 3.8 Albumin/Globulin Ratio 1.1 Lipase 58 L Radiography Diagnostic Testing: Clinical Impression(s) from Imaging Studies Abdomen/Pelvis CT 02/27/22 09:40 IMPRESSION: Normal enhanced CT of the abdomen and pelvis. Electronically Signed: Fantasma Beard MD at 11:21 EDT , Discharge Plan Triage Chief Complaint: Nausea/Vomiting ED Provider: Maricarmen Wilson Dx/Rx/DC Orders Clinical Impression: Nausea and vomiting, Abdominal pain Instructions: ED Cyclic Vomiting Syndrome Prescriptions: New ondansetron 4 mg tablet,disintegrating 4 mg PO Q8H PRN PRN (Reason: Nausea) Qty: 10 0RF No Action escitalopram oxalate 20 mg tablet 20 mg PO DAILY Qty: 90 1RF omeprazole 40 mg capsule,delayed release(DR/EC) 40 mg PO DAILY 28 Days Qty: 28 0RF ondansetron [ondansetron] 4 mg tablet,disintegrating 4 mg PO Q8H PRN PRN (Reason: Nausea) Qty: 10 0RF dicyclomine 10 mg capsule 20 mg PO TIDAC Qty: 20 0RF ondansetron 4 mg tablet,disintegrating 4 mg PO Q8H PRN (Reason: nausea and vomiting) Qty: 10 0RF Primary Care Provider: Lizett Chavez Referrals: Lizett Chavez MD [Primary Care Provider] - Friend,DO Franco [Med Staff - Active Staff] - Disposition Disposition: Home, Self Care
[2022-02-27] MEDS: Famotidine 200 MG/20 ML MDV 20 MG in 0.9% Normal Saline (Pres. free 8 ML 300 MG IV (10:25)
[2022-02-27] MEDS: 0.9% Normal Saline 1,000 ML 1000 ML IV (10:25)
[2022-02-27] MEDS: Ondansetron 4 MG/2 ML Vial IV (10:25)
[2022-02-27] MEDS: LORazepam 2 MG/ML Syringe 0.5 MG IV (10:25)
[2022-02-27 10:28] LABS: Absolute Lymphocyte Count 1.14 X10^3/uL (0.83-4.51); Absolute Neutrophil Count 10.8 X10^3/uL (2.0-7.7); Basophil# 0.04 X10^3/uL; Basophil% 0.3 % (0-1); Eosinophil# 0.01 X10^3/uL; Eosinophils% 0.1 % (0-5); Hematocrit 43.7 % (40-54); Hemoglobin 14.7 g/dL (13.0-16.5); Lymphocyte # 1.14 X10^3/ul (0.83-4.51); Lymphocyte % 9.2 % (19-41); Mean Corp Hgb Conc 33.6 g/dL (32-36); Mean Corpuscular Hgb 30.8 pg (27.0-32.0); Mean Corpuscular Volume 91.4 fL (80-94); Mean Platelet Vol. 9.8 fl (6.2-12.0); Monocyte# 0.38 X10^3/uL; Monocyte% 3.1 % (0-10); NRBC Flagged by Analyzer 0 % (0-5); Neutrophil # 10.84 X10^3/uL (2.7-7.7); Platelet Count 276 K/mm3 (150-450); RBC Distribution Width CV 12.8 % (11.6-14.6); RBC Distribution Width SD 43.2 fl (35.1-43.9); Red Blood Count 4.78 M/mm3 (4.6-6.2); White Blood Count 12.5 K/mm3 (4.4-11.0)
--- NOTE | 2022-02-27 10:31 | CM.ED ---
ARACELI Note: ARACELI advised MD that patient has a care plan. ARACELI updated RN and mate chief that patient has a care plan. Dixie PARSON
[2022-02-27 10:43] LABS: ALB/GLOB Ratio 1.1 RATIO (0.9-2.4); AST(SGOT) 35 U/L (15-37); Alanine Aminotransfer ALT/SGPT 48 U/L (16-61); Albumin, Serum 4.2 g/dL (3.2-5.0); Alkaline Phosphatase 69 U/L (45-117); Anion Gap 15 (5-15); BUN 8 mg/dL (7-18); BUN/Creat Ratio 7.6 RATIO (10-20); Chloride 106 mmol/L (98-107); Creatinine, Serum 1.05 mg/dL (0.70-1.30); EST Glomerular Filtration Rate 89 mL/min (>60); Est Glom Filt Rate - Afr Amer 108 mL/min (>60); Estimated Creatinine Clearance 104.74 ml/min; Globulin 3.8 g/dL (2.2-4.2); Glucose 127 mg/dL (74-106); Lipase 58 U/L (73-393); Potassium 3.5 mmol/L (3.5-5.1); Sodium Level 141 mmol/L (136-145)
[2022-02-27 11:39] LABS: Bacteria 0 SEEN /hpf (None Seen); Mucous, Urine 0 SEEN /hpf (<or=2+); Red Blood Cells-Urine 0 SEEN /hpf (0-5); Squamous Epithelial Cells - UA 0 SEEN /hpf (0-5); White Blood Cells 0 SEEN /hpf (0-5)
[2022-02-27 11:47] LABS: Color, Urine Yellow (Yellow); Glucose, Dipstick Normal (Normal); Ketone-Dipstick 15 mg/dl (Negative); Leukocyte Esterase-Dipstick Negative /ul (Negative); Nitrite-Dipstick Negative (Negative); Occult Blood-Urine Negative /ul (Negative); Protein-Dipstick Negative (Negative); Urine Bilirubin Dipstick Negative (Negative); Urine Clarity Clear (Clear); Urine Urobilinogen Normal (Normal)
== END 2022-02-27 12:12 | disposition home or self-care (01) ==
PROVIDERS: Emergency Provider Emergency Medicine; PCP Internal Medicine; Visit Provider Emergency Medicine
DX: R11.2 Nausea with vomiting, unspecified (principal); R10.9 Unspecified abdominal pain; F12.90 Cannabis use, unspecified, uncomplicated; Z87.891 Personal history of nicotine dependence
CPT/HCPCS: 74177; 80053; 81001; 83690; 85025; 96361; 96374; 96375; 99284; J7030; Q9967; A4216; J2405; J3490

== ENCOUNTER 2022-03-09 06:05 | Emergency (ER) | payer MEDICAID, SELFPAY ==
[2022-03-09 06:05] VITALS: BP 148/107; PULSE 74; RESP 20; TEMP 36.6; O2SAT 98; BMI 32.5
--- NOTE | 2022-03-09 06:20 | EDS_ITS ---
HPI HPI - GI History of Present Illness Chief Complaint: Nausea/Vomiting Narrative Narrative: Patient with chronic abdominal pain, nausea, vomiting, and diarrhea, presents with the same symptoms that he has had chronically since 2:00 this morning. He states his symptoms began almost 4-1/2 hours ago. He has vomited 6-7 times without marisa hematemesis. He had 2 episodes of diarrhea. He complains of diffuse crampy abdominal pain that is chronic for him. He was last seen in the emergency department 10 days ago. He admits to smoking marijuana a few days ago. He states that he is only smoked once since then, when he was told that he may have cannabinoid induced vomiting. He has an ED care plan and is supposed to be following up with Dr. Marshall. He states that he is doing an at home test for his chronic abdominal pain currently. [facility] Medical History Abdominal pain Depression Former smoker Nausea and vomiting Subclinical hypothyroidism Vitamin D deficiency Home Medications escitalopram oxalate 20 mg tablet 20 mg PO DAILY #90 tabs 01/05/22 [Rx Last Taken Unknown] ondansetron 4 mg disintegrating tablet 4 mg PO Q8H PRN PRN Nausea #10 tabs 01/09/22 [Rx Last Taken Unknown] Allergy/AdvReac Type Severity Reaction Status Date / Time adhesive tape Allergy Rash Verified 03/09/22 06:07 ibuprofen [From Motrin] AdvReac Upset Verified 03/09/22 06:07 Stomach Family History Mother Asthma Surgical History History of appendectomy Social History household members: significant other Smoking Status: Former smoker alcohol intake: never substance use type: marijuana ROS ROS ED ROS Narrative Constitutional: No fever, no chills. HEENT: No sore throat. No neck pain. No loss of vision. No rhinorrhea. Cardiovascular: No chest pain. No palpitations. No pedal edema. Respiratory: No cough, no shortness of breath. Abdominal: Diffuse abdominal pain. Positive nausea. 6-7 episodes of vomiting, perhaps blood-tinged reportedly but not marisa hematemesis. 2 episodes of diarrhea. Genitourinary: No dysuria. No hematuria. Musculoskeletal: No myalgias. No arthralgias. Neurologic: No headaches. No dizziness. No lightheadedness. Skin: No rash. No change in color. Psychiatric: No depression. No anxiety. EXAM Physical Exam Narrative Exam Narrative: Afebrile. Vital signs noted. HEENT: Normocephalic. Atraumatic. PERRL, EOMI. Neck soft and supple. No point tenderness or step off. Cardiovascular: Regular rate and rhythm. No murmurs, rubs, or gallops appreciated. Respiratory: No tachypnea. Lungs clear to auscultation bilaterally. Gastrointestinal: Abdomen soft, nontender, with normoactive bowel sounds. No rebound or guarding. Neurological: Awake. Alert. Nonfocal, nonlateralizing. Skin: No rash. Normal color. No pallor. Musculoskeletal: No pedal edema. Full range of motion extremities. Const Vital Signs: 03/09/22 06:05 Temperature 97.9 F Temperature Source Temporal Pulse Rate 74 Respiratory Rate 20 H Blood Pressure 148/107 H Blood Pressure Mean 120 Pulse Ox 98 Oxygen Delivery Method Room Air MDM MDM MDM Narrative Medical decision making narrative: I reviewed his prior records. He was seen [address] had [address] imaging which was normal. Comprehensive work-up was pursued in the form of CBC, CMP, and lipase which is laboratory work which is routinely checked with his chronic problem. He was administered a bolus of IV fluids, ondansetron, and Ativan which I feel may help with his cyclic vomiting. ED care plan was reviewed. I did check his labs. He has a leukocytosis of 15.1 which she has had in the past which I think may be demargination from his vomiting. Hemoglobin normal at 14.3, hematocrit 42.0. Platelet count normal at 309. Electrolyte panel shows chloride elevated at 108, creatinine normal at 1.1 with a BUN of 10. Glucose appropriately elevated at 123 with an anion gap of 10. Lipase normal at 98. At this point in time, I will reexamine him. His vomiting seems to have subsided. He feels improved. He states he has antinausea medication at home. He was reminded not to smoke marijuana. He will follow-up with gastroenterology. Disposition is discharged home in stable condition. Lab Data Attestation: I reviewed the patient's lab results. Labs: Laboratory Results - last 24 hr 03/09/22 03/09/22 06:25 06:25 WBC 15.1 H RBC 4.59 L Hgb 14.3 Hct 42.0 MCV 91.5 MCH 31.2 MCHC 34.0 RDW Std Deviation 41.8 RDW Coeff of Tanya 12.5 Plt Count 309 MPV 9.8 Immature Gran % (Auto) 0.500 Neut % (Auto) 82.8 H Lymph % (Auto) 11.0 L [place] % (Auto) 4.9 Eos % (Auto) 0.5 Baso % (Auto) 0.3 Absolute Neuts (auto) 12.5 H Absolute Lymphs (auto) 1.66 Nucleated RBC % 0 Sodium 138 Potassium 3.7 Chloride 108 H Carbon Dioxide 20.0 L Anion Gap 10 BUN 10 Creatinine 1.11 Estim Creat Clear Calc 99.08 Est GFR (MDRD) Af Amer 101 Est GFR (MDRD) Non-Af 83 BUN/Creatinine Ratio 9.0 L Glucose 123 H Calcium 9.9 Total Bilirubin 0.30 AST 17 ALT 28 Alkaline Phosphatase 65 Total Protein 8.1 Albumin 4.3 Globulin 3.8 Albumin/Globulin Ratio 1.1 Lipase 98 Discharge Plan Triage Chief Complaint: Nausea/Vomiting ED Provider: Jono White Dx/Rx/DC Orders Clinical Impression: Nausea and vomiting, Cannabinoid hyperemesis syndrome, Diarrhea, Abdominal pain Instructions: ED Cyclic Vomiting Syndrome, ED Diarrhea, Unknown Cause, ED Vomiting (Adult) Prescriptions: No Action escitalopram oxalate 20 mg tablet 20 mg PO DAILY Qty: 90 1RF ondansetron [ondansetron] 4 mg tablet,disintegrating 4 mg PO Q8H PRN PRN (Reason: Nausea) Qty: 10 0RF Primary Care Provider: Lizett Chavez Referrals: Lizett Chavez MD [Primary Care Provider] - As soon as possible Franco Marshall DO [Med Staff - Active Staff] - As soon as possible Activity Restrictions/Additional Instructions: Avoid marijuana use. Follow up with Dr. Marshall. Disposition Disposition: Home, Self Care
[2022-03-09 06:31] LABS: Absolute Lymphocyte Count 1.66 X10^3/uL (0.83-4.51); Absolute Neutrophil Count 12.5 X10^3/uL (2.0-7.7); Basophil# 0.04 X10^3/uL; Basophil% 0.3 % (0-1); Eosinophil# 0.08 X10^3/uL; Eosinophils% 0.5 % (0-5); Hemoglobin 14.3 g/dL (13.0-16.5); Lymphocyte # 1.66 X10^3/ul (0.83-4.51); Mean Corpuscular Hgb 31.2 pg (27.0-32.0); Mean Corpuscular Volume 91.5 fL (80-94); Mean Platelet Vol. 9.8 fl (6.2-12.0); Monocyte# 0.74 X10^3/uL; Monocyte% 4.9 % (0-10); NRBC Flagged by Analyzer 0 % (0-5); Neutrophil % 82.8 % (47-70); Platelet Count 309 K/mm3 (150-450); RBC Distribution Width CV 12.5 % (11.6-14.6); RBC Distribution Width SD 41.8 fl (35.1-43.9); Red Blood Count 4.59 M/mm3 (4.6-6.2); White Blood Count 15.1 K/mm3 (4.4-11.0)
[2022-03-09] MEDS: LORazepam 2 MG/ML Syringe 1 MG IV (06:32)
[2022-03-09] MEDS: 0.9% Normal Saline 1,000 ML 1000 ML IV (06:32)
[2022-03-09] MEDS: Ondansetron 4 MG/2 ML Vial IV (06:32)
[2022-03-09 06:48] LABS: ALB/GLOB Ratio 1.1 RATIO (0.9-2.4); AST(SGOT) 17 U/L (15-37); Alanine Aminotransfer ALT/SGPT 28 U/L (16-61); Albumin, Serum 4.3 g/dL (3.2-5.0); Alkaline Phosphatase 65 U/L (45-117); Anion Gap 10 (5-15); BUN 10 mg/dL (7-18); Calcium,Total 9.9 mg/dL (8.5-10.1); Chloride 108 mmol/L (98-107); Creatinine, Serum 1.11 mg/dL (0.70-1.30); EST Glomerular Filtration Rate 83 mL/min (>60); Est Glom Filt Rate - Afr Amer 101 mL/min (>60); Estimated Creatinine Clearance 99.08 ml/min; Globulin 3.8 g/dL (2.2-4.2); Glucose 123 mg/dL (74-106); Lipase 98 U/L (73-393); Potassium 3.7 mmol/L (3.5-5.1); Protein, Total 8.1 g/dL (6.4-8.2); Sodium Level 138 mmol/L (136-145)
== END 2022-03-09 09:00 | disposition home or self-care (01) ==
PROVIDERS: Emergency Provider Emergency Medicine; PCP Internal Medicine; Visit Provider Emergency Medicine
DX: R11.2 Nausea with vomiting, unspecified (principal); F12.988 Cannabis use, unspecified with other cannabis-induced disorder; R19.7 Diarrhea, unspecified; R10.9 Unspecified abdominal pain; Z87.891 Personal history of nicotine dependence; Z79.899 Other long term (current) drug therapy
CPT/HCPCS: 80053; 83690; 85025; 96361; 96374; 96375; 99282; J7030; A4216; J2405

== ENCOUNTER 2022-05-05 19:33 | Emergency (ER) | payer MEDICAID, SELFPAY ==
[2022-05-05 19:34] VITALS: BP 141/98; PULSE 72; RESP 21; TEMP 36.2; O2SAT 100; BMI 32.4
[2022-05-05] MEDS: 0.9% Normal Saline 1,000 ML 1000 ML IV (19:46)
[2022-05-05] MEDS: LORazepam 2 MG/ML Syringe 1 MG IV (19:50)
[2022-05-05] MEDS: proMETHazine 25 MG/ML Syringe IM (19:50)
[2022-05-05 19:54] VITALS: BP 154/95; PULSE 66; RESP 16; O2SAT 100
[2022-05-05 20:09] LABS: Absolute Lymphocyte Count 1.02 X10^3/uL (0.83-4.51); Absolute Neutrophil Count 6.6 X10^3/uL (2.0-7.7); Basophil# 0.01 X10^3/uL; Basophil% 0.1 % (0-1); Hematocrit 42.2 % (40-54); Hemoglobin 14.2 g/dL (13.0-16.5); Lymphocyte # 1.02 X10^3/ul (0.83-4.51); Lymphocyte % 12.8 % (19-41); Mean Corp Hgb Conc 33.6 g/dL (32-36); Mean Corpuscular Hgb 30.3 pg (27.0-32.0); Mean Corpuscular Volume 90.2 fL (80-94); Mean Platelet Vol. 10.1 fl (6.2-12.0); Monocyte# 0.26 X10^3/uL; Monocyte% 3.3 % (0-10); NRBC Flagged by Analyzer 0 % (0-5); Neutrophil # 6.63 X10^3/uL (2.7-7.7); Neutrophil % 83.4 % (47-70); Platelet Count 280 K/mm3 (150-450); RBC Distribution Width CV 11.9 % (11.6-14.6); RBC Distribution Width SD 38.9 fl (35.1-43.9); Red Blood Count 4.68 M/mm3 (4.6-6.2)
--- NOTE | 2022-05-05 20:21 | EDS_ITS ---
HPI History of Present Illness Chief Complaint: Abd Pain Informant: patient Onset/Context/Timing Onset: Today Context: Gradual Onset Current Severity: Severe Maximum Severity: Severe Narrative Narrative: Patient presents via EMS with abdominal pain, nausea, and vomiting. He has a history of recurrent gastritis and vomiting. He states this episode started this morning and is progressively worsened. He tried taking Pepto at home but vomited it back up. He thinks he last saw Dr. Marshall about a month ago. He is not currently on any prescriptions from Dr. Marshall. [facility] Medical History Abdominal pain Depression Former smoker Nausea and vomiting Subclinical hypothyroidism Vitamin D deficiency Allergy/AdvReac Type Severity Reaction Status Date / Time adhesive tape Allergy Rash Verified 05/05/22 19:41 ibuprofen [From Motrin] AdvReac Upset Verified 05/05/22 19:41 Stomach Family History Mother Asthma Surgical History History of appendectomy Social History household members: significant other Smoking Status: Former smoker alcohol intake: never substance use type: marijuana ROS ROS ED Constitutional Constitutional ED: Denies chills or fever(s) Eyes Eyes: Denies change in vision or discharge from eye(s) ENT ENT ED: Denies discharge from eye(s), rhinorrhea or sore throat Cardiovascular Cardiovascular: Denies chest pain or palpitations Respiratory/Chest Respiratory/Chest: Denies cough or dyspnea Gastrointestinal Gastrointestinal: Reports abdominal pain, nausea and vomiting; Denies diarrhea Genitourinary Genitourinary ED: Denies dysuria Musculoskeletal Musculoskeletal: Denies back pain or extremity pain Integumentary Denies Abrasions or rash Neurologic Neurologic: Denies headache(s) or weakness Psychiatric Psychiatric: Reports anxiety; Denies depression Allergic/Immunologic Allergic/Immunologic ED: Denies lip swelling or urticaria EXAM Physical Exam Const Vital Signs: 05/05/22 19:34 05/05/22 19:54 Temperature 97.1 F L Temperature Source Temporal Pulse Rate 72 66 Respiratory Rate 21 H 16 Blood Pressure 141/98 H 154/95 H Blood Pressure Mean 112 114 Pulse Ox 100 100 Oxygen Delivery Method Room Air Room Air Positive well nourished and well developed General Appearance ED: well developed HEENT Reports normocephalic and head/scalp atraumatic Eyes PERRL and EOMs intact bilaterally Neck supple Chest Wall inspection of chest normal and palpation of chest normal Resp normal respiratory effort and clear to auscultation bilaterally Cardio regular rate and regular rhythm GI GI Narrative: Diffuse abdominal tenderness. No guarding or rebound. Palpation: soft Extremity normal to inspection Neuro oriented x3 and no sensory deficits noted Sensorium / Orientation: alert Motor Exam: strength 5/5 throughout Psych Mood & Affect: anxious Skin no rashes or lesions noted MDM MDM MDM Narrative Medical decision making narrative: Patient's been seen in the emergency room multiple times with similar complaints. The last several work-ups were reviewed. Lab work obtained today and patient given IM Phenergan, IV fluids, IV Protonix, IV Ativan. He did receive Zofran with EMS. Lab Data Attestation: I reviewed the patient's lab results. Labs: Laboratory Results - last 24 hr 05/05/22 05/05/22 19:50 19:50 WBC 8.0 RBC 4.68 Hgb 14.2 Hct 42.2 MCV 90.2 MCH 30.3 MCHC 33.6 RDW Std Deviation 38.9 RDW Coeff of Tanya 11.9 Plt Count 280 MPV 10.1 Immature Gran % (Auto) 0.400 Neut % (Auto) 83.4 H Lymph % (Auto) 12.8 L [place] % (Auto) 3.3 Eos % (Auto) 0.0 Baso % (Auto) 0.1 Absolute Neuts (auto) 6.6 Absolute Lymphs (auto) 1.02 Nucleated RBC % 0 Sodium 138 Potassium 3.5 Chloride 107 Carbon Dioxide 23.0 Anion Gap 8 BUN 9 Creatinine 1.07 Estim Creat Clear Calc 102.78 Est GFR (MDRD) Af Amer 105 Est GFR (MDRD) Non-Af 87 BUN/Creatinine Ratio 8.4 L Glucose 155 H Calcium 9.7 Total Bilirubin 0.40 Direct Bilirubin 0.12 AST 16 ALT 28 Alkaline Phosphatase 70 Total Protein 8.1 Albumin 4.2 Globulin 3.9 Lipase 65 L Treatment and Re-Evaluation Narrative: Lab work is unremarkable with normal white count. Slight left shift with 83% neutrophils. Chemistry studies, LFTs, lipase are unremarkable. Repeat evaluation patient is sleepy but much more comfortable. He will call for a ride home. He has Zofran at home to use. Return instructions given. Discharge Plan Triage Chief Complaint: Abd Pain ED Provider: Fely Mendoza Dx/Rx/DC Orders Clinical Impression: Abdominal pain, Gastritis, Vomiting Instructions: ED Gastritis (Adult) Primary Care Provider: Lizett Chavez Referrals: Lizett Chavez MD [Primary Care Provider] - Franco Marshall DO [Med Staff - Active Staff] - As Needed Disposition Disposition: Home, Self Care
[2022-05-05 20:37] LABS: AST(SGOT) 16 U/L (15-37); Alanine Aminotransfer ALT/SGPT 28 U/L (16-61); Albumin, Serum 4.2 g/dL (3.2-5.0); Alkaline Phosphatase 70 U/L (45-117); Anion Gap 8 (5-15); BUN 9 mg/dL (7-18); BUN/Creat Ratio 8.4 RATIO (10-20); Bilirubin, Direct 0.12 mg/dL (0.00-0.30); Calcium,Total 9.7 mg/dL (8.5-10.1); Chloride 107 mmol/L (98-107); Creatinine, Serum 1.07 mg/dL (0.70-1.30); EST Glomerular Filtration Rate 87 mL/min (>60); Est Glom Filt Rate - Afr Amer 105 mL/min (>60); Estimated Creatinine Clearance 102.78 ml/min; Globulin 3.9 g/dL (2.2-4.2); Glucose 155 mg/dL (74-106); Lipase 65 U/L (73-393); Potassium 3.5 mmol/L (3.5-5.1); Protein, Total 8.1 g/dL (6.4-8.2); Sodium Level 138 mmol/L (136-145)
[2022-05-05 21:20] VITALS: RESP 14
== END 2022-05-05 21:21 | disposition home or self-care (01) ==
PROVIDERS: Emergency Provider Emergency Medicine; PCP Internal Medicine; Visit Provider Emergency Medicine
DX: K29.70 Gastritis, unspecified, without bleeding (principal); R11.2 Nausea with vomiting, unspecified; F12.90 Cannabis use, unspecified, uncomplicated; Z87.891 Personal history of nicotine dependence
CPT/HCPCS: 80048; 80076; 83690; 85025; 96365; 96372; 96375; 99285

== ENCOUNTER 2022-05-27 10:17 | Emergency (ER) | payer MEDICAID, SELFPAY ==
[2022-05-27 10:18] VITALS: BP 158/107; PULSE 72; RESP 14; TEMP 36.4; O2SAT 99; BMI 27.2
--- NOTE | 2022-05-27 10:31 | EX.ED.DYSGE1 ---
HPI History of Present Illness Chief Complaint: Nausea/Vomiting Detail of Chief Complaint: Nausea and vomiting Informant: patient Onset/Context/Timing Onset: - (Unable to determine since patient is grimacing holding his abdomen and will not respond verbally and will not shake his head yes or no to simple yes or no questions.) Context: Sudden Onset (Per nursing staff to talk to friend.) Timing: Continuous Quality: Pain Location: Abdomen Current Severity: Severe (Presumed) Maximum Severity: Severe (Presumed) Worsened by: Presently unable to determine Relieved by: Apparently nothing Associated Symptoms Associated Symptoms: Nausea and vomiting Narrative Narrative: Patient is a 26-year-old male who presents with abdominal pain with nausea and vomiting. Patient is presently on Pepcid. History is very limited because patient is grimacing holding his abdomen and will not respond verbally to questions asked or shake his head yes or no to questions. Prior similar symptoms: Yes (Per old records) Recent Illness/Hospitalization: No PFSH PFSH Medical History Abdominal pain Depression Former smoker Nausea and vomiting Subclinical hypothyroidism Vitamin D deficiency Allergy/AdvReac Type Severity Reaction Status Date / Time adhesive tape Allergy Rash Verified 05/27/22 10:20 ibuprofen [From Motrin] AdvReac Upset Verified 05/27/22 10:20 Stomach Family History Mother Asthma Surgical History History of appendectomy Social History household members: significant other Smoking Status: Former smoker alcohol intake: never substance use type: marijuana ROS ROS ED Review of Systems ROS Unobtainable: other Details: For reasons documented in the HPI narrative Constitutional Constitutional ED: Denies chills or fever(s) Gastrointestinal Gastrointestinal: Reports abdominal pain, nausea and vomiting EXAM Physical Exam Const Vital Signs: 05/27/22 10:18 05/27/22 10:50 05/27/22 11:26 Temperature 97.6 F L Temperature Source Temporal Pulse Rate 72 62 74 Respiratory Rate 14 18 16 Blood Pressure 158/107 H 158/111 H 157/112 H Blood Pressure Mean 124 126 127 Pulse Ox 99 100 98 Oxygen Delivery Method Room Air Room Air Room Air 05/27/22 12:37 Temperature Temperature Source Pulse Rate 85 Respiratory Rate 16 Blood Pressure 144/81 H Blood Pressure Mean 102 Pulse Ox 98 Oxygen Delivery Method Room Air Positive well nourished and well developed Constitutional Narrative: Patient is grimacing. He will not answer questions. There is minimal amount of emesis in the emesis bag. There is no blood or coffee grounds noted. Mucosas moist. General Appearance ED: well developed; Negative for cyanotic, diaphoretic, NAD or pallor HEENT Reports moist mucous membranes HEENT Narrative: Head is atraumatic no cephalic. Ears normal. Nares patent. Teeth normal. Posterior pharynx out abnormality. Eyes PERRL and EOMs intact bilaterally General Eye ED: Negative for pale conjunctiva or scleral icterus Neck no lymphadenopathy, supple and no JVD Chest Wall inspection of chest normal and palpation of chest normal Resp normal respiratory effort and clear to auscultation bilaterally Cardio regular rate, regular rhythm, S1 normal heart sound, S2 normal heart sound and no murmurs GI GI Narrative: Abdomen slightly tympanitic to percussion. He has pain out of proportion to tactile stimulus. Bowel sounds are diminished. There is tenderness throughout. There is voluntary guarding. There is no rebound tenderness or referred pain. There is no percussion tenderness. Back/Spine no CVA tenderness Extremity normal to inspection General Extremety ED: Negative for edema or tenderness General Extremity: Negative for edema Neuro CN's II-XII intact bilaterally Neuro Narrative: Moves all extremities. He is alert. He is awake. Psych Mood & Affect: anxious Skin no rashes or lesions noted, no wounds and skin turgor normal General Skin Exam: elasticity normal; Negative for jaundice or pallor MDM MDM MDM Narrative Medical decision making narrative: Assessment by Dr. Marshall last office visit:Abdominal pain possibly secondary to irritable bowel syndrome, gastritis, bile acid reflux, celiac's, less likely carcinoid syndrome, acute intermittent porphyria.? Vasculitis of the GI tract we will also send biochemical pulsatile due to his persistent symptoms and weight loss. Work-up was undertaken. No etiology of his pain or nausea vomiting was determined. July 2020 he underwent EGD and colonoscopy by Dr. Louie Lerma. Patient had evidence of LA grade a reflux esophagitis. There was also a 10 mm polyp mid colon that was removed. Recommendations were PPI. After reviewin outside notes and GI work-up being negative suspect this patient may have cyclic vomiting since this is not the first time this is occurred. Patient was treated with appropriate meds for cyclic vomiting. Will reassess. Because he acknowledged that he vomited 0.58 times since this morning IV was established and receive IV fluids and will obtain basic metabolic panel to assess renal function, CO2 anion gap and chloride level. Went to reassess patient at 1156. Patient is somnolent. This most likely is due to the medicines he received for cyclic vomiting. He has no longer vomiting. He has no quadrant pain. Will reassess in 1 to 2 hours. I was informed at 1319 that patient is awake. He has no complaints. He would like to go home. He has passed p.o. challenge. Lab Data Attestation: I reviewed the patient's lab results. Lab results narrative: Basic metabolic panel is unremarkable. BUN and creatinine are normal. BUN/creatinine ratio is normal. Glucose is slightly elevated 126. Review of prior records indicate that patient's had persistent elevated blood sugars. Labs: Laboratory Results - last 24 hr 05/27/22 10:43 Sodium 141 Potassium 3.7 Chloride 109 H Carbon Dioxide 23.0 Anion Gap 9 BUN 7 Creatinine 1.08 Estim Creat Clear Calc 105.14 Est GFR (MDRD) Af Amer 104 Est GFR (MDRD) Non-Af 86 BUN/Creatinine Ratio 6.5 L Glucose 126 H Calcium 9.0 Discharge Plan Triage Chief Complaint: Nausea/Vomiting ED Provider: Benny Stacy Dx/Rx/DC Orders Clinical Impression: Cyclic vomiting syndrome, Hyperlipidemia, Abdominal pain, High blood pressure Instructions: ED Cyclic Vomiting Syndrome Primary Care Provider: Lizett Chavez Referrals: Lizett Chavez MD [Primary Care Provider] - As Needed Disposition Disposition: Home, Self Care
[2022-05-27] MEDS: LORazepam 2 MG/ML Syringe 0.5 MG IV (10:49)
[2022-05-27] MEDS: Ondansetron 4 MG/2 ML Vial IV (10:49)
[2022-05-27] MEDS: Famotidine 200 MG/20 ML MDV 20 MG in 0.9% Normal Saline (Pres. free 8 ML 300 MG IV (10:49)
[2022-05-27] MEDS: 0.9% Normal Saline 1,000 ML 1000 ML IV (10:49)
[2022-05-27 10:50] VITALS: BP 158/111; PULSE 62; RESP 18; O2SAT 100
[2022-05-27 11:06] LABS: Anion Gap 9 (5-15); BUN 7 mg/dL (7-18); BUN/Creat Ratio 6.5 RATIO (10-20); Chloride 109 mmol/L (98-107); Creatinine, Serum 1.08 mg/dL (0.70-1.30); EST Glomerular Filtration Rate 86 mL/min (>60); Est Glom Filt Rate - Afr Amer 104 mL/min (>60); Estimated Creatinine Clearance 105.14 ml/min; Glucose 126 mg/dL (74-106); Potassium 3.7 mmol/L (3.5-5.1); Sodium Level 141 mmol/L (136-145)
[2022-05-27 11:26] VITALS: BP 157/112; PULSE 74; RESP 16; O2SAT 98
[2022-05-27 12:37] VITALS: BP 144/81; PULSE 85; RESP 16; O2SAT 98
[2022-05-27 13:47] VITALS: BP 138/88
== END 2022-05-27 13:49 | disposition home or self-care (01) ==
PROVIDERS: Emergency Provider Emergency Medicine; PCP Internal Medicine; Visit Provider Emergency Medicine
DX: R11.15 Cyclical vomiting syndrome unrelated to migraine (principal); E78.5 Hyperlipidemia, unspecified; R10.9 Unspecified abdominal pain; R03.0 Elevated blood-pressure reading, without diagnosis of hypertension; F12.90 Cannabis use, unspecified, uncomplicated; Z87.891 Personal history of nicotine dependence
CPT/HCPCS: 80048; 96365; 96375; 99283; J7030; J2405; J3490

== ENCOUNTER 2022-06-10 11:13 | Emergency (ER) | payer MEDICAID, SELFPAY ==
[2022-06-10 11:15] VITALS: BP 154/101; PULSE 75; RESP 17; TEMP 36.2; O2SAT 100; BMI 31.0
--- NOTE | 2022-06-10 11:38 | ED.VIS.GI ---
HPI HPI - GI History of Present Illness Chief Complaint: Abd Pain Informant: patient Narrative Narrative: Patient is a 26-year-old male with history of longstanding episodes of abdominal pain, nausea and vomiting presenting with abdominal pain nausea and vomiting. Patient does have a care plan to not opioids for his pain unless there is an acute verifiable process. Patient was seen in our ER 2 weeks ago for similar presentation at that time was treated with cyclic vomiting cocktail, had resolution of symptoms and was discharged home. Patient admits to smoking marijuana about 2 weeks ago. He states he has not used any since. He states that he went to bed feeling fine last night and woke up today with sudden onset of his symptoms. He states he has diffuse abdominal pain. Did have an episode of diarrhea today. Denies any fever. Denies any black or blood in his vomit or stool. States this feels like his normal episodes. States he still taking his Pepcid and following with Dr. Marshall. [facility] Medical History Abdominal pain Depression Former smoker Nausea and vomiting Subclinical hypothyroidism Vitamin D deficiency Home Medications famotidine 20 mg tablet 20 mg PO BID #28 TABLETS 06/10/22 [Rx Last Taken Unknown] ondansetron HCl 4 mg tablet 4 mg PO Q6H PRN nausea and vomiting #20 tabs 06/10/22 [Rx Last Taken Unknown] Allergy/AdvReac Type Severity Reaction Status Date / Time adhesive tape Allergy Rash Verified 06/10/22 11:14 ibuprofen [From Motrin] AdvReac Upset Verified 06/10/22 11:14 Stomach Family History Mother Asthma Surgical History History of appendectomy Social History household members: significant other Smoking Status: Former smoker alcohol intake: never substance use type: marijuana ROS ROS ED ROS Narrative Patient answers questions slowly and gives short one-word yes no answers also review of systems is limited Constitutional Constitutional ED: Denies chills or fever(s) Gastrointestinal Gastrointestinal: Reports abdominal pain, diarrhea, nausea and vomiting EXAM Physical Exam Const Vital Signs: 06/10/22 11:15 06/10/22 13:54 Temperature 97.2 F L Temperature Source Temporal Pulse Rate 75 Respiratory Rate 17 16 Blood Pressure 154/101 H Blood Pressure Mean 118 Pulse Ox 100 Oxygen Delivery Method Room Air Positive well nourished and well developed Constitutional Narrative: Laying on his side in bed. Uncomfortable appearing. General Appearance ED: well developed HEENT Reports moist mucous membranes normocephalic and atraumatic Eyes PERRL and EOMs intact bilaterally General Eye ED: Negative for scleral icterus Neck supple Resp normal respiratory effort and clear to auscultation bilaterally Cardio regular rate and regular rhythm GI non-distended GI Narrative: Mild diffuse tenderness palpation with voluntary guarding Auscultation: normoactive bowel sounds Palpation: soft; Negative for rigid Neuro moves all extremities Neuro Narrative: No focal deficits appreciated Sensorium / Orientation: alert Psych mental status grossly normal MDM MDM MDM Narrative Medical decision making narrative: Patient is elevated for nausea, vomiting, diarrhea and abdominal pain. Vital signs are significant for only mild hypertension. Clinically he does not appear dehydrated. Patient is given IV fluids and IV Haldol as I suspect he has cyclic vomiting syndrome. Patient does not have significant improvement and is then started on the cyclic vomiting care pathway with Ativan, Zofran and Pepcid. Patient has improvement of symptoms and is now ready to go home. He is able to drink water in the ER. Lab work largely unremarkable and I do not think he requires admission for intractable symptoms or electrolyte abnormalities. I do not think he requires imaging at this time. [employer] with pancreatitis and I do not think this is an obstruction. He does not have a leukocytosis of the lower suspicion for an acute intra-abdominal infection. Patient is refilled his Pepcid as he ran out and is also given a prescription for Zofran. Encouraged follow-up with GI. Encouraged to continue to abstain from marijuana. Discharged home in stable and improved condition. Lab Data Attestation: I reviewed the patient's lab results. Labs: Laboratory Results - last 24 hr 06/10/22 06/10/22 11:30 11:30 WBC 7.4 RBC 4.88 Hgb 15.2 Hct 45.0 MCV 92.2 MCH 31.1 MCHC 33.8 RDW Std Deviation 43.5 RDW Coeff of Tanya 12.8 Plt Count 317 MPV 9.7 Immature Gran % (Auto) 0.300 Neut % (Auto) 61.2 Lymph % (Auto) 28.8 [place] % (Auto) 6.5 Eos % (Auto) 2.4 Baso % (Auto) 0.8 Absolute Neuts (auto) 4.5 Absolute Lymphs (auto) 2.14 Nucleated RBC % 0 Sodium 140 Potassium 4.1 Chloride 109 H Carbon Dioxide 24.0 Anion Gap 7 BUN 5 L Creatinine 1.09 Estim Creat Clear Calc 100.90 Est GFR (MDRD) Af Amer 103 Est GFR (MDRD) Non-Af 85 BUN/Creatinine Ratio 4.6 L Glucose 106 Calcium 9.4 Total Bilirubin 0.40 AST 15 ALT 27 Alkaline Phosphatase 57 Total Protein 7.2 Albumin 3.6 Globulin 3.6 Albumin/Globulin Ratio 1.0 Lipase 86 Discharge Plan Triage Chief Complaint: Abd Pain ED Provider: Babs Dodge Dx/Rx/DC Orders Clinical Impression: Nausea and vomiting, Abdominal pain Instructions: ED Vomiting (Adult), ED Abdominal Pain Unkn Cause Male... Prescriptions: New ondansetron HCl 4 mg tablet 4 mg PO Q6H PRN (Reason: nausea and vomiting) Qty: 20 0RF famotidine 20 mg tablet 20 mg PO BID Qty: 28 0RF Primary Care Provider: Lizett Chavez Referrals: Lizett Chavez MD [Primary Care Provider] - Friend,DO Franco [Med Staff - Active Staff] - As soon as possible Activity Restrictions/Additional Instructions: Your lab work was normal today. Continue to abstain from marijuana use as this might be contributing to your nausea and vomiting. This possibly could have a GI bug that is causing it. Try to drink fluids and just have a liquid diet for the next day or 2 until you are feeling better. Disposition Disposition: Home, Self Care
[2022-06-10 11:45] LABS: Absolute Lymphocyte Count 2.14 X10^3/uL (0.83-4.51); Absolute Neutrophil Count 4.5 X10^3/uL (2.0-7.7); Basophil# 0.06 X10^3/uL; Basophil% 0.8 % (0-1); Eosinophil# 0.18 X10^3/uL; Eosinophils% 2.4 % (0-5); Hemoglobin 15.2 g/dL (13.0-16.5); Lymphocyte # 2.14 X10^3/ul (0.83-4.51); Lymphocyte % 28.8 % (19-41); Mean Corp Hgb Conc 33.8 g/dL (32-36); Mean Corpuscular Hgb 31.1 pg (27.0-32.0); Mean Corpuscular Volume 92.2 fL (80-94); Mean Platelet Vol. 9.7 fl (6.2-12.0); Monocyte# 0.48 X10^3/uL; Monocyte% 6.5 % (0-10); NRBC Flagged by Analyzer 0 % (0-5); Neutrophil # 4.54 X10^3/uL (2.7-7.7); Neutrophil % 61.2 % (47-70); Platelet Count 317 K/mm3 (150-450); RBC Distribution Width CV 12.8 % (11.6-14.6); RBC Distribution Width SD 43.5 fl (35.1-43.9); Red Blood Count 4.88 M/mm3 (4.6-6.2); White Blood Count 7.4 K/mm3 (4.4-11.0)
[2022-06-10] MEDS: Haloperidol Lactate 5 MG/ML Vial 2 MG IV (11:51)
[2022-06-10] MEDS: 0.9% Normal Saline 1,000 ML 1000 ML IV (11:51)
[2022-06-10 12:05] LABS: AST(SGOT) 15 U/L (15-37); Alanine Aminotransfer ALT/SGPT 27 U/L (16-61); Albumin, Serum 3.6 g/dL (3.2-5.0); Alkaline Phosphatase 57 U/L (45-117); Anion Gap 7 (5-15); BUN 5 mg/dL (7-18); BUN/Creat Ratio 4.6 RATIO (10-20); Calcium,Total 9.4 mg/dL (8.5-10.1); Chloride 109 mmol/L (98-107); Creatinine, Serum 1.09 mg/dL (0.70-1.30); EST Glomerular Filtration Rate 85 mL/min (>60); Est Glom Filt Rate - Afr Amer 103 mL/min (>60); Globulin 3.6 g/dL (2.2-4.2); Glucose 106 mg/dL (74-106); Lipase 86 U/L (73-393); Potassium 4.1 mmol/L (3.5-5.1); Protein, Total 7.2 g/dL (6.4-8.2); Sodium Level 140 mmol/L (136-145)
[2022-06-10] MEDS: LORazepam 2 MG/ML Syringe 0.5 MG IV (13:00)
[2022-06-10] MEDS: Ondansetron 4 MG/2 ML Vial IV (13:00)
[2022-06-10] MEDS: Famotidine 200 MG/20 ML MDV 20 MG in 0.9% Normal Saline (Pres. free 8 ML 300 MG IV (13:16)
[2022-06-10 13:54] VITALS: RESP 16
== END 2022-06-10 14:19 | disposition home or self-care (01) ==
PROVIDERS: Emergency Provider Emergency Medicine; PCP Internal Medicine; Visit Provider Emergency Medicine
DX: R11.2 Nausea with vomiting, unspecified (principal); R10.9 Unspecified abdominal pain; F12.90 Cannabis use, unspecified, uncomplicated; Z87.891 Personal history of nicotine dependence
CPT/HCPCS: 80053; 83690; 85025; 96365; 96375; 99282; J7030; A4216; J2405; J3490

== ENCOUNTER 2022-06-15 12:30 | Emergency (ER) | payer MEDICAID, SELFPAY ==
[2022-06-15 12:32] VITALS: BP 158/99; PULSE 76; RESP 14; TEMP 36.1; O2SAT 100; BMI 31.7
--- NOTE | 2022-06-15 12:45 | CT_ITS ---
STUDY: CT ABDOMEN AND PELVIS WITH CONTRAST REASON FOR EXAM: Male, 26 years old. Abdominal pain. RADIATION DOSAGE (If Supplied By Facility): CTDIvol = ( 12.06 ) mGy, DLP = ( 903.92 ) mGycm TECHNIQUE: Transaxial images were obtained from the dome of the diaphragm to the symphysis pubis without oral contrast. IV 100mL Isovue-300 was administered. Sagittal and coronal images were reconstructed. Individualized dose optimization techniques were used for this CT. COMPARISON: Comparison is made with prior examination dated 02/27/2022. FINDINGS: The visualized lung bases are unremarkable. The visualized portions of the heart are within normal limits. There is decreased attenuation of the liver consistent with steatosis. Normal gallbladder and extrahepatic biliary system. Normal spleen. Normal pancreas. Normal bilateral adrenal glands. Normal right kidney. Normal left kidney. Normal visualized stomach. Normal small intestine. There is evidence of a pancolitis. The appendix is visualized and appears normal. Normal abdominal aorta. Normal inferior vena cava. Normal retroperitoneum. Normal urinary bladder. Normal abdominal wall. Normal osseous structures. CT/Abdomen/Pelvis W IV Cont ONLY IMPRESSION: Findings in keeping with a pancolitis. Fatty infiltration of the liver. Electronically Signed: Darrian Jacobsen MD at 13:39 EST ,
[2022-06-15 12:56] LABS: Absolute Lymphocyte Count 2.14 X10^3/uL (0.83-4.51); Absolute Neutrophil Count 8.9 X10^3/uL (2.0-7.7); Basophil# 0.06 X10^3/uL; Basophil% 0.5 % (0-1); Eosinophil# 0.14 X10^3/uL; Eosinophils% 1.2 % (0-5); Hematocrit 45.2 % (40-54); Hemoglobin 15.3 g/dL (13.0-16.5); Lymphocyte # 2.14 X10^3/ul (0.83-4.51); Lymphocyte % 17.7 % (19-41); Mean Corp Hgb Conc 33.8 g/dL (32-36); Mean Corpuscular Volume 91.5 fL (80-94); Mean Platelet Vol. 9.6 fl (6.2-12.0); Monocyte# 0.77 X10^3/uL; Monocyte% 6.4 % (0-10); NRBC Flagged by Analyzer 0 % (0-5); Neutrophil # 8.92 X10^3/uL (2.7-7.7); Neutrophil % 73.9 % (47-70); Platelet Count 323 K/mm3 (150-450); RBC Distribution Width CV 12.7 % (11.6-14.6); RBC Distribution Width SD 42.5 fl (35.1-43.9); Red Blood Count 4.94 M/mm3 (4.6-6.2); White Blood Count 12.1 K/mm3 (4.4-11.0)
[2022-06-15] MEDS: Haloperidol Lactate 5 MG/ML Vial 2 MG IV (12:56)
[2022-06-15] MEDS: 0.9% Normal Saline 1,000 ML 1000 ML IV (12:56)
--- NOTE | 2022-06-15 13:00 | ED.VIS.GI ---
HPI HPI - GI History of Present Illness Chief Complaint: Abd Pain Narrative Narrative: 26-year-old male past medical history of gastritis, cyclic vomiting syndrome, has had multiple visits to the ED in the past presents with nausea, vomiting, diarrhea, and abdominal pain that he has had for the last few hours. He states he has vomited 7 times without blood in his emesis, and he had 1 episode of diarrhea. He complains of diffuse abdominal pain. No exacerbating or alleviating factors. He admits to smoking marijuana on occasion. Past surgical history to the abdomen does include remote appendectomy. He states he has pain all over his abdomen. [facility] Medical History Abdominal pain Depression Former smoker Nausea and vomiting Subclinical hypothyroidism Vitamin D deficiency Home Medications famotidine 20 mg tablet 20 mg PO BID #28 TABLETS 06/10/22 [Rx Last Taken Unknown] ondansetron HCl 4 mg tablet 4 mg PO Q6H PRN nausea and vomiting #20 tabs 06/10/22 [Rx Last Taken Unknown] amoxicillin 875 mg-potassium clavulanate 125 mg tablet 1 tab PO BID #14 tabs 06/15/22 [Rx Last Taken Unknown] prednisone 20 mg tablet 40 mg PO DAILY #20 tabs 06/15/22 [Rx Last Taken Unknown] Allergy/AdvReac Type Severity Reaction Status Date / Time adhesive tape Allergy Rash Verified 06/15/22 12:32 ibuprofen [From Motrin] AdvReac Upset Verified 06/15/22 12:32 Stomach Family History Mother Asthma Surgical History History of appendectomy Social History household members: significant other Smoking Status: Current every day smoker tobacco type: cigarettes alcohol intake: never substance use type: marijuana ROS ROS ED ROS Narrative Constitutional: No fever, no chills. HEENT: No sore throat. No neck pain. No loss of vision. No rhinorrhea. Cardiovascular: No chest pain. No palpitations. No pedal edema. Respiratory: No cough, no shortness of breath. Abdominal: Diffuse abdominal pain. Positive nausea. 7 episodes of nonbloody vomiting. 1 episode of nonbloody diarrhea Genitourinary: No dysuria. No hematuria. Musculoskeletal: No myalgias. No arthralgias. Neurologic: No headaches. No dizziness. No lightheadedness. Skin: No rash. No change in color. Psychiatric: No depression. No anxiety. EXAM Physical Exam Narrative Exam Narrative: Afebrile. Vital signs noted. HEENT: Normocephalic. Atraumatic. PERRL, EOMI. Neck soft and supple. No point tenderness or step off. Cardiovascular: Regular rate and rhythm. No murmurs, rubs, or gallops appreciated. Respiratory: No tachypnea. Lungs clear to auscultation bilaterally. Gastrointestinal: Abdomen soft, minimal diffuse tenderness with normoactive bowel sounds. No rebound or guarding. Neurological: Awake. Alert. Nonfocal, nonlateralizing. Skin: No rash. Normal color. No pallor. Musculoskeletal: No pedal edema. Full range of motion extremities. Const Vital Signs: 06/15/22 12:32 06/15/22 15:28 Temperature 97 F L Temperature Source Temporal Pulse Rate 76 85 Respiratory Rate 14 18 Blood Pressure 158/99 H 122/82 H Blood Pressure Mean 118 95 Pulse Ox 100 100 Oxygen Delivery Method Room Air Room Air MDM MDM MDM Narrative Medical decision making narrative: I reviewed his prior outpatient record. He has had multiple visits to the ED in the past. He has not had CT imaging since February of last year, but is usually normal. He states he has been scoped in the past, but not by Dr. Marshall. He is currently taking Pepcid for his abdominal problems. He was told to refrain from marijuana smoking again. He was seen in the emergency department 5 days ago on the , and before that on the of last month. I reviewed his care plan and he is not to receive any narcotic pain medication or synthetic opiates. He was treated with IV fluids and 2 mg of Haldol. I reviewed that last time he received Zofran and Ativan which obviously only helped him temporarily. I will obtain CT imaging and laboratory work. I reviewed patient's laboratory work. He has slightly elevated white count of 12.1 which I think may be more nonspecific or could be demargination from his vomiting. Hemoglobin normal at 15.3 with hematocrit 45.2. Normal platelet count of 323. CMP was obtained and and review shows chloride elevated at 110 with normal sodium of 140, potassium normal at 4.1. Glucose appropriately elevated at 108 with a normal anion gap of 8. Lipase normal at 79. As this is his third visit within the last few weeks, I do feel that this time CT imaging should be indicated with IV contrast. I reviewed the imaging and see mild thickening of the colon on my interpretation. I reviewed the radiology report which mentions pancolitis. I discussed the patient with his broke worker, Dr. Marshall. He put in for stool studies, but the patient stated that he would be unable to provide a stool sample at this time. Additionally, he would like him placed on a prednisone burst of 40 mg for 10 days and for Augmentin for a week. Upon repeat examination, patient states he feels improved. He is able to stand, and he feels well and would like to be discharged, asking for his IV to be removed. I stressed the importance of taking his medications and following up with Dr. Marshall. I feel he can be discharged safely home with follow-up. Return instructions to the emergency department were reviewed. Disposition is discharged home in stable condition. Lab Data Attestation: I reviewed the patient's lab results. Labs: Laboratory Results - last 24 hr 06/15/22 06/15/22 12:50 12:50 WBC 12.1 H RBC 4.94 Hgb 15.3 Hct 45.2 MCV 91.5 MCH 31.0 MCHC 33.8 RDW Std Deviation 42.5 RDW Coeff of Tanya 12.7 Plt Count 323 MPV 9.6 Immature Gran % (Auto) 0.300 Neut % (Auto) 73.9 H Lymph % (Auto) 17.7 L [place] % (Auto) 6.4 Eos % (Auto) 1.2 Baso % (Auto) 0.5 Absolute Neuts (auto) 8.9 H Absolute Lymphs (auto) 2.14 Nucleated RBC % 0 Sodium 140 Potassium 4.1 Chloride 110 H Carbon Dioxide 22.0 Anion Gap 8 BUN 6 L Creatinine 0.97 Estim Creat Clear Calc 113.38 Est GFR (MDRD) Af Amer 118 Est GFR (MDRD) Non-Af 97 BUN/Creatinine Ratio 6.2 L Glucose 108 H Calcium 9.5 Total Bilirubin 0.50 AST 16 ALT 22 Alkaline Phosphatase 56 Total Protein 7.6 Albumin 4.1 Globulin 3.5 Albumin/Globulin Ratio 1.2 Lipase 79 Radiography Diagnostic Testing: Clinical Impression(s) from Imaging Studies Abdomen/Pelvis CT 06/15/22 12:45 IMPRESSION: Findings in keeping with a pancolitis. Fatty infiltration of the liver. Electronically Signed: Darrian Jacobsen MD at 13:39 EST , Discharge Plan Triage Chief Complaint: Abd Pain ED Provider: Jono White Dx/Rx/DC Orders Clinical Impression: Pancolitis, Nausea, vomiting, and diarrhea Prescriptions: New prednisone 20 mg tablet 40 mg PO DAILY Qty: 20 0RF amoxicillin-pot clavulanate 875-125 mg tablet 1 tab PO BID Qty: 14 0RF No Action ondansetron HCl 4 mg tablet 4 mg PO Q6H PRN (Reason: nausea and vomiting) Qty: 20 0RF famotidine 20 mg tablet 20 mg PO BID Qty: 28 0RF Primary Care Provider: Lizett Chavez Referrals: Lizett Chavez MD [Primary Care Provider] - 3-5 Days if not improving Franco Marshall DO [Med Staff - Active Staff] - 3-5 Days Disposition Disposition: Home, Self Care
[2022-06-15 13:16] LABS: ALB/GLOB Ratio 1.2 RATIO (0.9-2.4); AST(SGOT) 16 U/L (15-37); Alanine Aminotransfer ALT/SGPT 22 U/L (16-61); Albumin, Serum 4.1 g/dL (3.2-5.0); Alkaline Phosphatase 56 U/L (45-117); Anion Gap 8 (5-15); BUN 6 mg/dL (7-18); BUN/Creat Ratio 6.2 RATIO (10-20); Calcium,Total 9.5 mg/dL (8.5-10.1); Chloride 110 mmol/L (98-107); Creatinine, Serum 0.97 mg/dL (0.70-1.30); EST Glomerular Filtration Rate 97 mL/min (>60); Est Glom Filt Rate - Afr Amer 118 mL/min (>60); Estimated Creatinine Clearance 113.38 ml/min; Globulin 3.5 g/dL (2.2-4.2); Glucose 108 mg/dL (74-106); Lipase 79 U/L (73-393); Potassium 4.1 mmol/L (3.5-5.1); Protein, Total 7.6 g/dL (6.4-8.2); Sodium Level 140 mmol/L (136-145)
--- NOTE | 2022-06-15 14:24 | CM.ED ---
MD was advised of patient's care plan. However, patient has verifiable pain thus pain medication was ordered. Dixie PARSON
[2022-06-15 15:28] VITALS: BP 122/82; PULSE 85; RESP 18; O2SAT 100
== END 2022-06-15 15:45 | disposition home or self-care (01) ==
PROVIDERS: Emergency Provider Emergency Medicine; PCP Internal Medicine; Visit Provider Emergency Medicine
DX: K51.00 Ulcerative (chronic) pancolitis without complications (principal); R11.2 Nausea with vomiting, unspecified; R19.7 Diarrhea, unspecified; F12.90 Cannabis use, unspecified, uncomplicated
CPT/HCPCS: 74177; 80053; 83690; 85025; 96361; 96374; 99283; J7030; Q9967; A4216

== ENCOUNTER 2022-06-24 06:18 | Emergency (ER) | payer MEDICAID, SELFPAY ==
[2022-06-24 06:18] VITALS: BP 147/77; PULSE 66; RESP 17; TEMP 36.1; O2SAT 100; BMI 31.8
[2022-06-24] MEDS: Mag Hydrox/Al Hydrox/Simeth 30 ML UDC PO (06:53)
--- NOTE | 2022-06-24 06:55 | EX.ED.DYSGE1 ---
HPI History of Present Illness Chief Complaint: Abd Pain Narrative Narrative: Patient is a 26-year-old male who has a history of chronic/recurrent abdominal pain. He was seen 8 days ago secondary to recurrent symptoms and at that time was found to have pancolitis. The case was discussed with GI Dr. Marshall who recommended 10 days of steroids and 7-day course of Augmentin. Patient states he finished the Augmentin and is just about done with the steroids. He states he awoke this morning and had an episode of increasing pain and secondary to this took Zofran and Pepcid. He states the pain was persisting however and secondary to this he comes to the hospital for evaluation. [facility] Medical History Abdominal pain Depression Former smoker Nausea and vomiting Subclinical hypothyroidism Vitamin D deficiency Home Medications famotidine 20 mg tablet 20 mg PO BID #28 TABLETS 06/10/22 [Rx Last Taken Unknown] ondansetron HCl 4 mg tablet 4 mg PO Q6H PRN nausea and vomiting #20 tabs 06/10/22 [Rx Last Taken Unknown] prednisone 20 mg tablet 40 mg PO DAILY #20 tabs 06/15/22 [Rx Last Taken Unknown] Allergy/AdvReac Type Severity Reaction Status Date / Time adhesive tape Allergy Rash Verified 06/24/22 06:24 ibuprofen [From Motrin] AdvReac Upset Verified 06/24/22 06:24 Stomach Family History Mother Asthma Surgical History History of appendectomy Social History household members: significant other Smoking Status: Current every day smoker tobacco type: cigarettes alcohol intake: never substance use type: marijuana ROS ROS ED Constitutional Constitutional ED: Denies chills or fever(s) ENT ENT ED: Denies sore throat Cardiovascular Cardiovascular: Denies chest pain Respiratory/Chest Respiratory/Chest: Denies cough or dyspnea Gastrointestinal Gastrointestinal: Reports abdominal pain and nausea; Denies diarrhea, melena or vomiting Genitourinary Genitourinary ED: Denies dysuria Musculoskeletal Musculoskeletal: Denies myalgias Integumentary Denies rash Neurologic Neurologic: Denies headache(s) Hematologic/Lymphatic Hematologic/Lymphatic: Denies easy bleeding or easy bruising EXAM Physical Exam Const Vital Signs: 06/24/22 06:18 Temperature 96.9 F L Temperature Source Temporal Pulse Rate 66 Respiratory Rate 17 Blood Pressure 147/77 H Blood Pressure Mean 100 Pulse Ox 100 Oxygen Delivery Method Room Air Positive well nourished and well developed General Appearance ED: well developed HEENT Reports moist mucous membranes HEENT Narrative: No signs of infection noted in the posterior pharynx Eyes PERRL and EOMs intact bilaterally General Eye ED: Negative for scleral icterus Neck supple Neck Narrative: No crepitance palpated Resp normal respiratory effort and clear to auscultation bilaterally Cardio regular rate and regular rhythm GI non-distended GI Narrative: Abdomen is soft and nondistended with normal active bowel sounds. There is mild diffuse pain on palpation without voluntary guarding or rigidity. No pulsatile mass or fluid wave Auscultation: normoactive bowel sounds Palpation: soft Extremity normal to inspection Neuro oriented x3 and CN's II-XII intact bilaterally Sensorium / Orientation: alert Psych mental status grossly normal Skin no rashes or lesions noted General Skin Exam: Negative for jaundice MDM MDM MDM Narrative Medical decision making narrative: Patient presented to the ER with stable vitals. His recent ER visits were reviewed and this confirmed the diagnosis of pancolitis on recent CAT scan with mildly elevated white count as well as consultation with Dr. Marshall. The patient's abdomen exam today is nonfocal/nonsurgical and I have low concern that he has developed a secondary intestinal abscess or perforation or obstruction. I discussed with patient that we can repeat laboratory studies at this time to check for worsening areas of inflammation and provide IV hydration as well as treatment. The patient states he is feeling better at this time and does not want to go through the trauma of IV insertion. Therefore he was given a GI cocktail and oral Protonix. On reevaluation he does report improvement of his symptoms and his abdomen remains soft and nonsurgical. Therefore as this appears to be an acute exacerbation of his chronic pain and physical exam does not suggest intestinal abscess inflammatory obstructive process or systemic infection he is otherwise safe for discharge and can follow-up with his GI physician on an outpatient basis Discharge Plan Triage Chief Complaint: Abd Pain ED Provider: Roney Paul Dx/Rx/DC Orders Clinical Impression: Colitis Instructions: ED Understanding Colitis Prescriptions: No Action ondansetron HCl 4 mg tablet 4 mg PO Q6H PRN (Reason: nausea and vomiting) Qty: 20 0RF famotidine 20 mg tablet 20 mg PO BID Qty: 28 0RF prednisone 20 mg tablet 40 mg PO DAILY Qty: 20 0RF Primary Care Provider: Lizett Chavez Referrals: Lizett Chavez MD [Primary Care Provider] - Friend,DO Franco [Med Staff - Active Staff] - Activity Restrictions/Additional Instructions: Please continue with the medication as directed by your GI physician and return to the ER should you have any further concerns Disposition Disposition: Home, Self Care
== END 2022-06-24 07:14 | disposition home or self-care (01) ==
PROVIDERS: Emergency Provider Emergency Medicine; PCP Internal Medicine; Visit Provider Emergency Medicine
DX: K52.9 Noninfective gastroenteritis and colitis, unspecified (principal); F12.90 Cannabis use, unspecified, uncomplicated; F17.210 Nicotine dependence, cigarettes, uncomplicated
CPT/HCPCS: 99283

== ENCOUNTER 2022-07-01 03:27 | Emergency (ER) | payer MEDICAID, SELFPAY ==
[2022-07-01 03:28] VITALS: BP 149/95; PULSE 69; RESP 18; TEMP 36.4; O2SAT 100; BMI 32.5
[2022-07-01] MEDS: 0.9% Normal Saline 1,000 ML 999 ML IV (03:58)
[2022-07-01] MEDS: proCHLORPERazine 10 MG/2 ML Vial IV (03:58)
[2022-07-01 04:17] LABS: Absolute Lymphocyte Count 2.21 X10^3/uL (0.83-4.51); Absolute Neutrophil Count 6.2 X10^3/uL (2.0-7.7); Basophil# 0.05 X10^3/uL; Basophil% 0.5 % (0-1); Eosinophil# 0.21 X10^3/uL; Eosinophils% 2.2 % (0-5); Hematocrit 44.6 % (40-54); Hemoglobin 14.6 g/dL (13.0-16.5); Lymphocyte # 2.21 X10^3/ul (0.83-4.51); Lymphocyte % 23.2 % (19-41); Mean Corp Hgb Conc 32.7 g/dL (32-36); Mean Corpuscular Hgb 30.8 pg (27.0-32.0); Mean Corpuscular Volume 94.1 fL (80-94); Mean Platelet Vol. 9.8 fl (6.2-12.0); Monocyte# 0.83 X10^3/uL; Monocyte% 8.7 % (0-10); NRBC Flagged by Analyzer 0 % (0-5); Neutrophil # 6.21 X10^3/uL (2.7-7.7); Neutrophil % 65.1 % (47-70); Platelet Count 287 K/mm3 (150-450); RBC Distribution Width SD 44.9 fl (35.1-43.9); Red Blood Count 4.74 M/mm3 (4.6-6.2); White Blood Count 9.5 K/mm3 (4.4-11.0)
--- NOTE | 2022-07-01 04:39 | EX.ED.DYSGE1 ---
HPI History of Present Illness Chief Complaint: Abd Pain Narrative Narrative: Patient is a 27-year-old male with past medical history of chronic abdominal pain. He was seen on June 15 and at that time was found to have pancolitis. He was placed on steroids and antibiotics. Patient states he took those as directed and finished them roughly 3 to 5 days ago. He states this evening he was sleeping and he awoke with generalized abdominal discomfort and bouts of nausea. He states that he tried his home medications without symptom improvement and secondary to this comes in for evaluation. He denies any recent trauma or excessive activity he denies any diarrhea fevers chills or dysuria. He also denies any recent cannabis use that could have stimulated his symptoms [facility] Medical History Abdominal pain Depression Former smoker Nausea and vomiting Subclinical hypothyroidism Vitamin D deficiency Home Medications famotidine 20 mg tablet 20 mg PO BID #28 TABLETS 06/10/22 [Rx Last Taken Unknown] ondansetron HCl 4 mg tablet 4 mg PO Q6H PRN nausea and vomiting #20 tabs 06/10/22 [Rx Last Taken Unknown] prednisone 20 mg tablet 40 mg PO DAILY #20 tabs 06/15/22 [Rx Last Taken Unknown] Allergy/AdvReac Type Severity Reaction Status Date / Time adhesive tape Allergy Rash Verified 06/24/22 06:24 ibuprofen [From Motrin] AdvReac Upset Verified 06/24/22 06:24 Stomach Family History Mother Asthma Surgical History History of appendectomy Social History household members: significant other Smoking Status: Current every day smoker tobacco type: cigarettes alcohol intake: never substance use type: marijuana ROS ROS ED Constitutional Constitutional ED: Denies chills or fever(s) ENT ENT ED: Denies sore throat Cardiovascular Cardiovascular: Denies chest pain Respiratory/Chest Respiratory/Chest: Denies cough or dyspnea Gastrointestinal Gastrointestinal: Reports abdominal pain, nausea and vomiting; Denies diarrhea Genitourinary Genitourinary ED: Denies dysuria or hematuria Musculoskeletal Musculoskeletal: Denies myalgias Integumentary Denies rash Neurologic Neurologic: Denies headache(s) Hematologic/Lymphatic Hematologic/Lymphatic: Denies easy bleeding or easy bruising EXAM Physical Exam Const Vital Signs: 07/01/22 03:28 Temperature 97.6 F L Temperature Source Oral Pulse Rate 69 Respiratory Rate 18 Blood Pressure 149/95 H Blood Pressure Mean 113 Pulse Ox 100 Oxygen Delivery Method Room Air Positive well nourished and well developed General Appearance ED: well developed HEENT Reports moist mucous membranes HEENT Narrative: No trismus change in voice or difficulty with secretions no findings of secondary infection in the posterior pharynx Eyes PERRL and EOMs intact bilaterally General Eye ED: Negative for scleral icterus Neck supple Neck Narrative: No crepitance palpated or pain with external manipulation of the thyroid cartilage Resp normal respiratory effort and clear to auscultation bilaterally Cardio regular rate and regular rhythm Rate: other Other Details: Radial pulses are plus 2 out of 4 bilaterally are equal and symmetric GI non-distended GI Narrative: Abdomen is soft and nondistended with normoactive bowel sounds. Patient has mild diffuse pain with palpation without voluntary guarding or rigidity. No pulsatile mass or fluid wave Auscultation: normoactive bowel sounds Palpation: soft Extremity normal to inspection Neuro oriented x3 and CN's II-XII intact bilaterally Sensorium / Orientation: alert Psych Psych Narrative: Patient has a nervous/anxious affect Skin no rashes or lesions noted General Skin Exam: Negative for jaundice MDM MDM MDM Narrative Medical decision making narrative: Patient arrived to the ER afebrile. He has a history of chronic abdominal pain and on exam he had mild diffuse tenderness but he was not rigid he is not guarding there is no distention and therefore do not feel there is a need for CAT scan emergently. With his symptoms of abdominal pain there is concern he is developed a viral stomach infection is having worsening gastritis or acute pancreatitis or that with his bouts of nausea and vomiting he has electrolyte disturbance or acute kidney injury from severe dehydration. Secondary to this basic labs were obtained. Patient's white count is normal moreover his lactic acid is normal and there is no elevation to the CRP going against an acute inflammatory process. He has no signs of acute kidney injury or severe electrolyte disturbance as well. Therefore at this time with his recent CAT scan in early June and now normal laboratory values without leukocytosis lactic acidosis or elevation to his CRP do not feel there is need for a repeat scan. Patient was hydrated initially given Compazine and then still had bouts of nausea and vomiting so Haldol was added. After receiving Haldol patient had improvement of symptoms and on reevaluation his abdomen remains soft and nonsurgical. Therefore I feel this is a flareup of his chronic abdominal issues and his I have low concern for underlying obstruction or infection he is otherwise safe for discharge Lab Data Attestation: I reviewed the patient's lab results. Labs: Laboratory Results - last 24 hr 07/01/22 07/01/22 07/01/22 04:04 04:10 04:10 WBC 9.5 RBC 4.74 Hgb 14.6 Hct 44.6 MCV 94.1 H MCH 30.8 MCHC 32.7 RDW Std Deviation 44.9 H RDW Coeff of Tanya 13.0 Plt Count 287 MPV 9.8 Immature Gran % (Auto) 0.300 Neut % (Auto) 65.1 Lymph % (Auto) 23.2 [place] % (Auto) 8.7 Eos % (Auto) 2.2 Baso % (Auto) 0.5 Absolute Neuts (auto) 6.2 Absolute Lymphs (auto) 2.21 Nucleated RBC % 0 Sodium 139 Potassium 3.8 Chloride 108 H Carbon Dioxide 25.0 Anion Gap 6 BUN 10 Creatinine 1.18 Estim Creat Clear Calc 92.37 Est GFR (MDRD) Af Amer 94 Est GFR (MDRD) Non-Af 78 BUN/Creatinine Ratio 8.5 L Glucose 107 H Lactic Acid 1.8 Calcium 9.3 Total Bilirubin 0.20 Direct Bilirubin 0.09 AST 27 ALT 28 Alkaline Phosphatase 55 C-React Prot Ext Range < 2.90 Total Protein 7.1 Albumin 3.7 Globulin 3.4 Lipase 139 Discharge Plan Triage Chief Complaint: Abd Pain ED Provider: Roney Paul Dx/Rx/DC Orders Clinical Impression: Nausea & vomiting, Abdominal pain Instructions: Abdominal Pain, ED Vomiting (Adult) Prescriptions: No Action ondansetron HCl 4 mg tablet 4 mg PO Q6H PRN (Reason: nausea and vomiting) Qty: 20 0RF famotidine 20 mg tablet 20 mg PO BID Qty: 28 0RF prednisone 20 mg tablet 40 mg PO DAILY Qty: 20 0RF Primary Care Provider: Lizett Chavez Referrals: Lizett Chavez MD [Primary Care Provider] - Activity Restrictions/Additional Instructions: Please continue the medication prescribed by your electric sign wirer as directed as your work-up today reveals no clinically significant changes. Keep yourself well-hydrated and if you have any further concerns please return to the ER for repeat evaluation Disposition Disposition: Home, Self Care
[2022-07-01 05:04] LABS: AST(SGOT) 27 U/L (15-37); Alanine Aminotransfer ALT/SGPT 28 U/L (16-61); Albumin, Serum 3.7 g/dL (3.2-5.0); Alkaline Phosphatase 55 U/L (45-117); Anion Gap 6 (5-15); BUN 10 mg/dL (7-18); BUN/Creat Ratio 8.5 RATIO (10-20); Bilirubin, Direct 0.09 mg/dL (0.00-0.30); CRP < 2.90 mg/L (0.0-3.0); Calcium,Total 9.3 mg/dL (8.5-10.1); Chloride 108 mmol/L (98-107); Creatinine, Serum 1.18 mg/dL (0.70-1.30); EST Glomerular Filtration Rate 78 mL/min (>60); Est Glom Filt Rate - Afr Amer 94 mL/min (>60); Estimated Creatinine Clearance 92.37 ml/min; Globulin 3.4 g/dL (2.2-4.2); Glucose 107 mg/dL (74-106); Lipase 139 U/L (73-393); Potassium 3.8 mmol/L (3.5-5.1); Protein, Total 7.1 g/dL (6.4-8.2); Sodium Level 139 mmol/L (136-145)
[2022-07-01 05:04] LABS: Lactic Acid 1.8 mmol/L (0.4-1.9)
[2022-07-01] MEDS: Haloperidol Lactate 5 MG/ML Vial IV (05:17)
[2022-07-01] MEDS: Haloperidol Lactate 5 MG/ML Vial 2 MG IV (05:55)
[2022-07-01 06:20] VITALS: BP 134/62; PULSE 64; RESP 18; O2SAT 100
== END 2022-07-01 06:42 | disposition home or self-care (01) ==
PROVIDERS: Emergency Provider Emergency Medicine; PCP Internal Medicine; Visit Provider Emergency Medicine
DX: R11.2 Nausea with vomiting, unspecified (principal); R10.9 Unspecified abdominal pain; F12.90 Cannabis use, unspecified, uncomplicated; F17.210 Nicotine dependence, cigarettes, uncomplicated; G89.29 Other chronic pain
CPT/HCPCS: 80048; 80076; 83605; 83690; 85025; 86140; 96365; 96375; 96376; 99283; J7030; A4216

== ENCOUNTER 2022-09-18 13:49 | Emergency (ER) | payer MEDICAID, SELFPAY ==
[2022-09-18 13:52] VITALS: TEMP 36.6; BMI 31.1
[2022-09-18 13:58] VITALS: BP 155/83; PULSE 80; RESP 20; O2SAT 100
[2022-09-18 14:15] LABS: Bedside Glucose 129 mg/dL (74-106)
--- NOTE | 2022-09-18 14:51 | EX.ED.DYSGE1 ---
HPI History of Present Illness Chief Complaint: Nausea/Vomiting Detail of Chief Complaint: Nausea vomiting with hematemesis and coffee-ground emesis Informant: spouse/S.O. Onset/Context/Timing Onset: Today Context: Sudden Onset Timing: Intermittent Quality: Initial to bouts of emesis without blood or coffee-ground appearing materia Location: GI Current Severity: Unable to determine because patient is moaning. Maximum Severity: Unable to determine Worsened by: Unable to determine Relieved by: Unable to determine Associated Symptoms Associated Symptoms: Unable to determine Narrative Narrative: Patient is a 27-year-old male who does have a care plan. He sought ER care 11 times over a 7-month. He has been seen by Dr. Bonilla in the past and was noted to have esophagitis due to reflux. He did see Dr. Marshall September 2021 with uncertainty of the cause of his abdominal pain. Patient's significant other informing that Dr. Marshall is aware of his marijuana use and that this is not the cause of his problems because he has been using marijuana for years. Of note there is no mention of marijuana use in Dr. Marshall's notes. Patient is lying in the bed unresponsive. When his arm was raised above his face he slowly brought it down to the side. Patient coughed once or twice. He then began to moan when I palpated his abdomen. Otherwise no history was obtained from the patient. The history was obtained from his significant other. She did take pictures of the emesis. There is concerned this represents a GI bleed. Since this occurred on the third episode of vomiting suspect that he has a Nila-Stewart tear. Also suspect patient has cyclic vomiting. [facility] Medical History Abdominal pain Depression Former smoker Nausea and vomiting Subclinical hypothyroidism Vitamin D deficiency Home Medications famotidine 20 mg tablet 20 mg PO BID #28 TABLETS 06/10/22 [Rx Last Taken Unknown] ondansetron HCl 4 mg tablet 4 mg PO Q6H PRN nausea and vomiting #20 tabs 06/10/22 [Rx Last Taken Unknown] Allergy/AdvReac Type Severity Reaction Status Date / Time adhesive tape Allergy Rash Verified 06/24/22 06:24 ibuprofen [From Motrin] AdvReac Upset Verified 06/24/22 06:24 Stomach Family History Mother Asthma Surgical History History of appendectomy Social History household members: significant other Smoking Status: Current every day smoker tobacco type: cigarettes alcohol intake: never substance use type: marijuana ROS ROS ED Review of Systems ROS Unobtainable: due to mental condition and due to mental status EXAM Physical Exam Const Vital Signs: 09/18/22 13:52 09/18/22 13:58 Temperature 97.8 F Temperature Source Temporal Pulse Rate 80 Respiratory Rate 20 H Blood Pressure 155/83 H Blood Pressure Mean 107 Pulse Ox 100 Oxygen Delivery Method Room Air Positive well nourished and well developed General Appearance ED: well developed and NAD; Negative for cyanotic, diaphoretic or pallor HEENT Reports moist mucous membranes HEENT Narrative: Head is atraumatic normocephalic. Ears normal. Nares patent. Posterior pharynx is unremarkable. Eyes PERRL and EOMs intact bilaterally General Eye ED: Negative for pale conjunctiva or scleral icterus Neck no lymphadenopathy, supple and no JVD Chest Wall inspection of chest normal and palpation of chest normal Resp normal respiratory effort and clear to auscultation bilaterally Cardio regular rate, regular rhythm, S1 normal heart sound, S2 normal heart sound and no murmurs GI normal to inspection, nondistended, normoactive bowel sounds, non-distended and no masses; Negative for non-tender or hepatosplenomegaly GI Narrative: Patient has pain out of proportion to light tactile stimulus. Patient would move my hand away. There was no voluntary or involuntary guarding with deep palpation. Palpation: soft Back/Spine no CVA tenderness Extremity normal to inspection General Extremety ED: Negative for edema, tenderness or other findings General Extremity: Negative for edema or other findings Neuro oriented x3, CN's II-XII intact bilaterally and no sensory deficits noted Psych Psych Narrative: Difficult to assess. Skin no rashes or lesions noted, no wounds and skin turgor normal General Skin Exam: Negative for jaundice or pallor MDM MDM MDM Narrative Medical decision making narrative: SPECT patient's vomiting is probably due to marijuana use. Suspect patient's upper GI bleed is due to Nila-Stewart tear. We will have NG placed by nursing staff to determine if he is still actively bleeding. Cyclic vomiting order set was used. CBC was obtained to assess H&H. Prior records were reviewed i.e. EGD by Dr. Louie Lerma in 2020 and office note [address] Dr[address] Marshall September 2021. With patient avoiding his hand from falling onto his face he is conscious of what is going on and in my opinion is deliberately not answering questions or interacting with me or the nurse. History & Record Review Discussion w/independent historian: Significant other Additional record(s) reviewed:: Prior outpatient record and Prior ED visit Lab Data Attestation: I reviewed the patient's lab results. Lab results narrative: White count is slightly elevated with slight shift. There is no bandemia comprehensive metabolic panel is unremarkable other than a glucose of 117 with normal CO2 and anion gap. Labs: Laboratory Results - last 24 hr 09/18/22 09/18/22 09/18/22 13:55 14:42 14:42 WBC 12.2 H RBC 4.73 Hgb 15.0 Hct 43.0 MCV 90.9 MCH 31.7 MCHC 34.9 RDW Std Deviation 41.7 RDW Coeff of Tanya 12.3 Plt Count 321 MPV 9.7 Immature Gran % (Auto) 0.200 Neut % (Auto) 84.6 H Lymph % (Auto) 9.6 L [place] % (Auto) 5.1 Eos % (Auto) 0.1 Baso % (Auto) 0.4 Absolute Neuts (auto) 10.3 H Absolute Lymphs (auto) 1.18 Nucleated RBC % 0 Sodium 140 Potassium 3.7 Chloride 107 Carbon Dioxide 24.0 Anion Gap 9 BUN 8 Creatinine 1.10 Estim Creat Clear Calc 99.09 Est GFR (MDRD) Af Amer 102 Est GFR (MDRD) Non-Af 84 BUN/Creatinine Ratio 7.3 L Glucose 117 H Calcium 10.1 Total Bilirubin 0.60 AST 22 ALT 33 Alkaline Phosphatase 72 Total Protein 7.7 Albumin 4.4 Globulin 3.3 Albumin/Globulin Ratio 1.3 Lipase 21 POC Glucose 129 H Radiography Chest X-Ray - ED: 1 View and Read by ED Physician (KUB was obtained and reveals the NG to be in proper position. There is no evidence of pneumoperitoneum. There is no infiltrate noted lower lung davis.) Diagnostic Testing: Clinical Impression(s) from Imaging Studies KUB X-Ray 05/08/23 15:25 IMPRESSION: The distal tip of the nasogastric tube is in the body of the stomach. Electronically Signed: Darrian Jacobsen MD at 15:39 EDT , Treatment and Re-Evaluation :: Patient was reassessed at 1620. He is sitting up talking states he feels markedly better. There was no gross blood noted after insertion of NG. Discharge Plan Triage Chief Complaint: Nausea/Vomiting ED Provider: Benny Stacy Dx/Rx/DC Orders Clinical Impression: Nila-Stewart tear, Hyperlipidemia, Abdominal pain, Nausea & vomiting, Conversion reaction, Cannabis use disorder Instructions: Nila-Stewart Tear Prescriptions: No Action ondansetron HCl 4 mg tablet 4 mg PO Q6H PRN (Reason: nausea and vomiting) Qty: 20 0RF famotidine 20 mg tablet 20 mg PO BID Qty: 28 0RF Primary Care Provider: Lizett Chavez Referrals: Lizett Chavez MD [Primary Care Provider] - Franco Marshall DO [Med Staff - Active Staff] - 1-2 Weeks Disposition Disposition: Home, Self Care
[2022-09-18 15:02] LABS: Absolute Lymphocyte Count 1.18 X10^3/uL (0.83-4.51); Absolute Neutrophil Count 10.3 X10^3/uL (2.0-7.7); Basophil# 0.05 X10^3/uL; Basophil% 0.4 % (0-1); Eosinophil# 0.01 X10^3/uL; Eosinophils% 0.1 % (0-5); Lymphocyte # 1.18 X10^3/ul (0.83-4.51); Lymphocyte % 9.6 % (19-41); Mean Corp Hgb Conc 34.9 g/dL (32-36); Mean Corpuscular Hgb 31.7 pg (27.0-32.0); Mean Corpuscular Volume 90.9 fL (80-94); Mean Platelet Vol. 9.7 fl (6.2-12.0); Monocyte# 0.62 X10^3/uL; Monocyte% 5.1 % (0-10); NRBC Flagged by Analyzer 0 % (0-5); Neutrophil # 10.34 X10^3/uL (2.7-7.7); Neutrophil % 84.6 % (47-70); Platelet Count 321 K/mm3 (150-450); RBC Distribution Width CV 12.3 % (11.6-14.6); RBC Distribution Width SD 41.7 fl (35.1-43.9); Red Blood Count 4.73 M/mm3 (4.6-6.2); White Blood Count 12.2 K/mm3 (4.4-11.0)
[2022-09-18] MEDS: Famotidine 200 MG/20 ML MDV 20 MG in 0.9% Normal Saline (Pres. free 8 ML 300 MG IV (15:04)
[2022-09-18] MEDS: Ondansetron 4 MG/2 ML Vial IV (15:04)
[2022-09-18] MEDS: 0.9% Normal Saline 1,000 ML 150 ML IV (15:04)
[2022-09-18] MEDS: LORazepam 2 MG/ML Syringe 0.5 MG IV (15:04)
--- NOTE | 2022-09-18 15:17 | CM.ED ---
Social Work Note Referral Source: Case find Referral reason: care plan SW reviewed patient's chart and placed a copy of patient's care plan to be reviewed by MD assigned to patient. SW remains available if support or resources are needed. Ama Vu MSW, JORDON
--- NOTE | 2022-09-18 15:25 | RAD_ITS ---
STUDY: X-RAY - ABDOMEN/PELVIS REASON FOR EXAM: Male, 27 years old. NG Insertion TECHNIQUE: Single AP view of the abdomen / pelvis. COMPARISON: None. FINDINGS: Nasogastric tube is seen. The distal tip is in the body of the stomach. Normal visualized lung bases. There is a moderate amount of colonic fecal material. The visualized liver, spleen and kidneys are grossly normal in size and morphology. Normal soft tissue structures. Normal visualized osseous structures. RAD/Abdomen Single View (Portable) IMPRESSION: The distal tip of the nasogastric tube is in the body of the stomach. Electronically Signed: Darrian Jacobsen MD at 15:39 EDT ,
[2022-09-18 15:41] LABS: ALB/GLOB Ratio 1.3 RATIO (0.9-2.4); AST(SGOT) 22 U/L (15-37); Alanine Aminotransfer ALT/SGPT 33 U/L (16-61); Albumin, Serum 4.4 g/dL (3.2-5.0); Alkaline Phosphatase 72 U/L (45-117); Anion Gap 9 (5-15); BUN 8 mg/dL (7-18); BUN/Creat Ratio 7.3 RATIO (10-20); Calcium,Total 10.1 mg/dL (8.5-10.1); Chloride 107 mmol/L (98-107); EST Glomerular Filtration Rate 84 mL/min (>60); Est Glom Filt Rate - Afr Amer 102 mL/min (>60); Estimated Creatinine Clearance 99.09 ml/min; Globulin 3.3 g/dL (2.2-4.2); Glucose 117 mg/dL (74-106); Lipase 21 U/L (13-75); Potassium 3.7 mmol/L (3.5-5.1); Protein, Total 7.7 g/dL (6.4-8.2); Sodium Level 140 mmol/L (136-145)
[2022-09-18 16:32] VITALS: BP 138/87
== END 2022-09-18 16:38 | disposition home or self-care (01) ==
PROVIDERS: Emergency Provider Emergency Medicine; PCP Internal Medicine; Visit Provider Emergency Medicine
DX: K22.6 Gastro-esophageal laceration-hemorrhage syndrome (principal); E78.5 Hyperlipidemia, unspecified; R10.9 Unspecified abdominal pain; R11.2 Nausea with vomiting, unspecified; F12.90 Cannabis use, unspecified, uncomplicated; F17.210 Nicotine dependence, cigarettes, uncomplicated
CPT/HCPCS: 74018; 80053; 82962; 83690; 85025; 96374; 96375; 99285; J7030; A4216; J2405; J3490

== ENCOUNTER 2023-03-30 23:31 | Emergency (ER) | payer MEDICAID, SELFPAY ==
[2023-03-30 23:32] VITALS: BP 154/81; PULSE 100; RESP 16; TEMP 36.6; O2SAT 99
[2023-03-31] MEDS: 0.9% Normal Saline (1000mL) 1,000 ML 999 ML IV (00:05)
[2023-03-31] MEDS: DiphenhydrAMINE 50 MG/ML Syringe 25 MG IV (00:06)
[2023-03-31] MEDS: Haloperidol Lactate 5 MG/ML Vial IV (00:07)
[2023-03-31 00:17] LABS: Absolute Lymphocyte Count 0.96 X10^3/uL (0.83-4.51); Absolute Neutrophil Count 10.5 X10^3/uL (2.0-7.7); Basophil# 0.03 X10^3/uL; Basophil% 0.2 % (0-1); Hematocrit 44.8 % (40-54); Hemoglobin 15.2 g/dL (13.0-16.5); Lymphocyte # 0.96 X10^3/ul (0.83-4.51); Mean Corp Hgb Conc 33.9 g/dL (32-36); Mean Corpuscular Hgb 31.3 pg (27.0-32.0); Mean Corpuscular Volume 92.2 fL (80-94); Mean Platelet Vol. 9.9 fl (6.2-12.0); Monocyte# 0.56 X10^3/uL; Monocyte% 4.6 % (0-10); NRBC Flagged by Analyzer 0 % (0-5); Neutrophil # 10.45 X10^3/uL (2.7-7.7); Neutrophil % 86.6 % (47-70); Platelet Count 307 K/mm3 (150-450); RBC Distribution Width CV 12.6 % (11.6-14.6); RBC Distribution Width SD 43.3 fl (35.1-43.9); Red Blood Count 4.86 M/mm3 (4.6-6.2); White Blood Count 12.1 K/mm3 (4.4-11.0)
[2023-03-31 00:36] LABS: AST(SGOT) 17 U/L (15-37); Alanine Aminotransfer ALT/SGPT 28 U/L (16-61); Albumin, Serum 4.6 g/dL (3.2-5.0); Alkaline Phosphatase 67 U/L (45-117); Anion Gap 6 (5-15); BUN 15 mg/dL (7-18); BUN/Creat Ratio 11.9 RATIO (10-20); Bilirubin, Direct 0.12 mg/dL (0.00-0.30); Calcium,Total 10.2 mg/dL (8.5-10.1); Chloride 108 mmol/L (98-107); Creatinine, Serum 1.26 mg/dL (0.70-1.30); EST Glomerular Filtration Rate 72 mL/min (>60); Est Glom Filt Rate - Afr Amer 87 mL/min (>60); Glucose 143 mg/dL (74-106); Lipase 27 U/L (13-75); Potassium 3.9 mmol/L (3.5-5.1); Protein, Total 8.6 g/dL (6.4-8.2); Sodium Level 139 mmol/L (136-145)
[2023-03-31] MEDS: Famotidine 200 MG/20 ML MDV 20 MG in 0.9% Normal Saline (Pres. free 8 ML 300 MG IV (00:49)
--- NOTE | 2023-03-31 01:05 | EX.ED.DYSGE1 ---
HPI History of Present Illness Chief Complaint: Nausea/Vomiting Informant: patient Narrative Narrative: Patient is a 27-year-old male with past medical history of recurrent abdominal pain as well as THC use and cyclic vomiting syndrome. He states multiple people have been sick at work and over the last 24 hours he has had generalized abdominal discomfort with bouts of nausea and vomiting. He states he has not been able to keep any food or fluid down and has concern for dehydration and therefore comes in for evaluation. [facility] Medical History Abdominal pain Depression Former smoker Nausea and vomiting Subclinical hypothyroidism Vitamin D deficiency Home Medications famotidine 20 mg tablet 20 mg PO BID #28 TABLETS 06/10/22 [Rx Last Taken Unknown] ondansetron HCl 4 mg tablet 4 mg PO Q6H PRN nausea and vomiting #20 tabs 06/10/22 [Rx Last Taken Unknown] ondansetron 4 mg disintegrating tablet 4 mg PO TID PRN nausea and vomiting #21 tabs 03/31/23 [Rx Last Taken Unknown] Allergy/AdvReac Type Severity Reaction Status Date / Time adhesive tape Allergy Rash Verified 03/30/23 23:34 ibuprofen [From Motrin] AdvReac Upset Verified 03/30/23 23:34 Stomach Family History Mother Asthma Surgical History History of appendectomy Social History household members: significant other Smoking Status: Current every day smoker tobacco type: cigarettes alcohol intake: never substance use type: marijuana ROS ROS ED Constitutional Constitutional ED: Denies chills or fever(s) ENT ENT ED: Reports rhinorrhea; Denies sore throat Cardiovascular Cardiovascular: Denies chest pain Respiratory/Chest Respiratory/Chest: Denies cough or dyspnea Gastrointestinal Gastrointestinal: Reports abdominal pain, nausea and vomiting; Denies diarrhea Genitourinary Genitourinary ED: Denies dysuria Musculoskeletal Musculoskeletal: Reports myalgias Integumentary Denies rash Neurologic Neurologic: Denies headache(s) Hematologic/Lymphatic Hematologic/Lymphatic: Denies easy bleeding or easy bruising EXAM Physical Exam Const Vital Signs: 03/30/23 23:32 Temperature 98 F Temperature Source Temporal Pulse Rate 100 Respiratory Rate 16 Blood Pressure 154/81 H Blood Pressure Mean 105 Pulse Ox 99 Oxygen Delivery Method Room Air Positive well nourished and well developed General Appearance ED: well developed HEENT HEENT Narrative: Mucous membranes are slightly dry and tacky No dried blood or active bleeding noted in the posterior pharynx No secondary changes to suggest infection Eyes PERRL and EOMs intact bilaterally General Eye ED: Negative for scleral icterus Neck supple Resp normal respiratory effort and clear to auscultation bilaterally Cardio regular rate and regular rhythm Rate: other Other Details: Radial and carotid pulses are equal and symmetric GI non-distended GI Narrative: Abdomen is soft and nondistended with hyperactive bowel sounds. There is mild diffuse pain with palpation without voluntary guarding or rigidity No pulsatile mass or fluid wave Auscultation: hyperactive bowel sounds Palpation: soft Extremity normal to inspection Neuro oriented x3, CN's II-XII intact bilaterally and no sensory deficits noted Sensorium / Orientation: alert Motor Exam: strength 5/5 throughout Psych mental status grossly normal Skin no rashes or lesions noted Skin Narrative: Skin turgor is slightly increased General Skin Exam: Negative for jaundice MDM MDM MDM Narrative Medical decision making narrative: Patient presented to the ER slightly hypertensive but otherwise with stable vitals. Differential diagnosis for his report of abdominal pain with nausea and vomiting is viral stomach infection versus biliary colic versus pancreatitis versus gastritis versus colitis there is also concern for electrolyte derangement acute kidney injury. Basic blood work was obtained which reveals slight leukocytosis but otherwise no signs of acute kidney injury or severe electrolyte derangement. Patient was given IV fluids as well as Haldol Benadryl and Pepcid and on reevaluation reports feeling better and has had no further bouts of vomiting in the ER. On repeat evaluation his abdomen remains soft and nonsurgical. Therefore at this time as laboratory studies do not suggest severe dehydration or acute kidney injury or severe electrolyte derangement and his symptoms have improved with treatment I do not feel there is need for CAT scan or further work-up and he is otherwise safe for discharge. History & Record Review Discussion w/independent historian: Patient Lab Data Labs: Laboratory Results - last 24 hr 03/31/23 00:08 WBC 12.1 H RBC 4.86 Hgb 15.2 Hct 44.8 MCV 92.2 MCH 31.3 MCHC 33.9 RDW Std Deviation 43.3 RDW Coeff of Tanya 12.6 Plt Count 307 MPV 9.9 Immature Gran % (Auto) 0.600 Neut % (Auto) 86.6 H Lymph % (Auto) 8.0 L [place] % (Auto) 4.6 Eos % (Auto) 0.0 Baso % (Auto) 0.2 Absolute Neuts (auto) 10.5 H Absolute Lymphs (auto) 0.96 Nucleated RBC % 0 Sodium 139 Potassium 3.9 Chloride 108 H Carbon Dioxide 25.0 Anion Gap 6 BUN 15 Creatinine 1.26 Estim Creat Clear Calc 86.50 Est GFR (MDRD) Af Amer 87 Est GFR (MDRD) Non-Af 72 BUN/Creatinine Ratio 11.9 Glucose 143 H Calcium 10.2 H Total Bilirubin 0.40 Direct Bilirubin 0.12 AST 17 ALT 28 Alkaline Phosphatase 67 Total Protein 8.6 H Albumin 4.6 Globulin 4.0 Lipase 27 Discharge Plan Triage Chief Complaint: Nausea/Vomiting ED Provider: Roney Paul Dx/Rx/DC Orders Clinical Impression: Mild dehydration, Nausea and vomiting, Abdominal pain Instructions: ED Dehydration (Adult), ED Vomiting (Adult) Prescriptions: New ondansetron 4 mg tablet,disintegrating 4 mg PO TID PRN (Reason: nausea and vomiting) Qty: 21 0RF No Action ondansetron HCl 4 mg tablet 4 mg PO Q6H PRN (Reason: nausea and vomiting) Qty: 20 0RF famotidine 20 mg tablet 20 mg PO BID Qty: 28 0RF Primary Care Provider: Lizett Chavez Referrals: Lizett Chavez MD [Primary Care Provider] - Activity Restrictions/Additional Instructions: Please take the Zofran as directed to help control nausea and vomiting and keep yourself well-hydrated. If you have any further concerns or worsening symptoms please return to the ER for repeat evaluation Disposition Disposition: Home, Self Care
== END 2023-03-31 01:19 | disposition home or self-care (01) ==
PROVIDERS: Emergency Provider Emergency Medicine; PCP Internal Medicine; Visit Provider Emergency Medicine
DX: E86.0 Dehydration (principal); R11.2 Nausea with vomiting, unspecified; R10.9 Unspecified abdominal pain; F12.90 Cannabis use, unspecified, uncomplicated; F17.210 Nicotine dependence, cigarettes, uncomplicated
CPT/HCPCS: 80048; 80076; 83690; 85025; 96365; 96375; 99283; J7030; A4216; J3490

== ENCOUNTER 2023-04-01 07:07 | Emergency (ER) | payer MEDICAID, SELFPAY ==
[2023-04-01 07:08] VITALS: BP 169/139; PULSE 73; RESP 20; TEMP 36.3; O2SAT 100; BMI 30.5
--- NOTE | 2023-04-01 07:26 | ED.VIS.GI ---
HPI HPI - GI History of Present Illness Chief Complaint: Abd Pain Narrative Narrative: 27-year-old male with history of gastritis, GERD, cyclic vomiting syndrome, avoid use presenting with nausea/vomiting/epigastric pain. Patient states that he was here the day before yesterday overnight after eating some fried chicken which is known to cause him symptoms of gastritis. He was given Pepcid and Zofran and started to feel better. Last evening his took his significant other to sheets for robledo cheddar cheese biscuits and this did him to eat 2 of these himself and now he has nausea and vomiting again. He states that these would be known to cause the symptoms. He did Zofran which is dissolvable but still vomited. He is still having epigastric pain. Denies fevers or chills. PFSH PFS Medical History Abdominal pain Depression Former smoker Nausea and vomiting Subclinical hypothyroidism Vitamin D deficiency Home Medications ondansetron 4 mg disintegrating tablet 4 mg PO TID PRN nausea and vomiting #21 tabs 03/31/23 [Rx Last Taken Unknown] Allergy/AdvReac Type Severity Reaction Status Date / Time adhesive tape Allergy Rash Verified 03/30/23 23:34 ibuprofen [From Motrin] AdvReac Upset Verified 03/30/23 23:34 Stomach Family History Mother Asthma Surgical History History of appendectomy Social History household members: significant other Smoking Status: Current every day smoker tobacco type: cigarettes alcohol intake: never substance use type: marijuana ROS ROS ED Constitutional Constitutional ED: Denies chills, fever(s) or sweats Eyes Eyes: Denies blurry vision or change in vision ENT ENT ED: Denies ear pain or sore throat Cardiovascular Cardiovascular: Denies chest pain, palpitations or racing heartbeat Respiratory/Chest Respiratory/Chest: Denies cough, dyspnea or sputum Gastrointestinal Gastrointestinal: Reports abdominal pain, nausea and vomiting; Denies constipation or diarrhea Genitourinary Genitourinary ED: Denies dysuria, hematuria or urinary frequency Musculoskeletal Musculoskeletal: Denies arthralgias, myalgias or neck pain Integumentary Denies abscess, Abrasions or rash Neurologic Neurologic: Denies headache(s), paresthesias or weakness Psychiatric Psychiatric: Denies anxiety, depression, suicidal ideation or suicidal thoughts Endocrine Endocrinology: Denies polydipsia or polyuria EXAM Physical Exam Const Vital Signs: 04/01/23 07:08 Temperature 97.4 F L Temperature Source Temporal Pulse Rate 73 Respiratory Rate 20 H Blood Pressure 169/139 H Blood Pressure Mean 149 Pulse Ox 100 Oxygen Delivery Method Room Air Positive well nourished General Appearance ED: NAD HEENT Reports moist mucous membranes normocephalic and atraumatic Eyes PERRL and EOMs intact bilaterally Resp normal respiratory effort Cardio regular rate and regular rhythm GI GI Narrative: Epigastric tenderness Neuro CN's II-XII intact bilaterally Sensorium / Orientation: alert, oriented to person, oriented to place and oriented to time Psych mental status grossly normal MDM MDM MDM Narrative Medical decision making narrative: Patient with symptoms of gastritis/GERD. Patient had lab work chest 2 days ago. I do not believe he needs repeat lab work. He and his significant other are in agreement. He does want symptomatic control he is given IM Phenergan and will be followed by GI cocktail. Rate 22. Nursing states to me that the patient declines a GI cocktail. He is sleeping after getting Phenergan. He has not had any episodes of emesis. She continued to complain of nausea so an IV was established and he was given Reglan and Benadryl and he has not had any further episodes of vomiting however on reevaluation at 9:38 AM the patient states he still nauseous and request some IV Pepcid. This was provided. 10:22 AM the patient came out of the room demanding to be discharged home immediately. He stated to nursing staff that he wants to go home and take a shower. He has antiemetics at home. He was again counseled to watch his diet as this seems to be the trigger for his emesis/abdominal pain. Discharged in stable condition. Impression: 1 nausea/vomiting 2. Abdominal pain Lab Data Attestation: I reviewed the patient's lab results. Discharge Plan Triage Chief Complaint: Abd Pain ED Provider: Shilo Olmedo Dx/Rx/DC Orders Instructions: ED Abdominal Pain Unkn Cause Male... Prescriptions: No Action ondansetron 4 mg tablet,disintegrating 4 mg PO TID PRN (Reason: nausea and vomiting) Qty: 21 0RF Primary Care Provider: Lizett Chavez Referrals: Lizett Chavez MD [Primary Care Provider] - Disposition Disposition: Home, Self Care
[2023-04-01] MEDS: proMETHazine 25 MG/ML Syringe 12.5 MG IM (07:43)
--- NOTE | 2023-04-01 07:49 | ED.RN ---
pt refusing gi cocktail at this time.
--- NOTE | 2023-04-01 08:24 | ED.RN ---
RN INTO THE ROOM TO ADMINISTER GI COCKTAIL. PT IS SLEEPING.
[2023-04-01] MEDS: Metoclopramide 10 MG/2 ML Vial IV (09:01)
[2023-04-01] MEDS: DiphenhydrAMINE 50 MG/ML Syringe 25 MG IV (09:01)
[2023-04-01] MEDS: Famotidine 200 MG/20 ML MDV 20 MG in 0.9% Normal Saline (Pres. free 8 ML 300 MG IV (09:47)
--- NOTE | 2023-04-01 10:25 | ED.RN ---
pt requesting to leave- states he wants to go home and take a hot shower. dr qureshi notified
[2023-04-01 10:26] VITALS: BP 136/77; PULSE 84; RESP 14; O2SAT 99
== END 2023-04-01 10:27 | disposition home or self-care (01) ==
PROVIDERS: Emergency Provider Student in an Organized Health Care Education/Training Program; PCP Internal Medicine; Visit Provider Student in an Organized Health Care Education/Training Program
DX: R11.2 Nausea with vomiting, unspecified (principal); R10.9 Unspecified abdominal pain; F12.90 Cannabis use, unspecified, uncomplicated; F17.210 Nicotine dependence, cigarettes, uncomplicated
CPT/HCPCS: 96365; 96372; 96375; 99283; A4216; J3490

== ENCOUNTER 2023-07-30 01:12 | Emergency (ER) | payer MEDICAID, SELFPAY ==
[2023-07-30] VITALS (7 sets, daily range): BP systolic 126–162; BP diastolic 76–113; PULSE 48–72; RESP 15–18; TEMP 36.6–37.6; O2SAT 97–100; BMI 29.3
--- NOTE | 2023-07-30 01:32 | CT_ITS ---
EXAM: CT ABDOMEN AND PELVIS WITH INTRAVENOUS CONTRAST CLINICAL INDICATION: Nausea, vomiting and diarrhea, abdominal guarding TECHNIQUE: Helically acquired images were obtained of the abdomen and pelvis with intravenous contrast. This CT exam was performed using one or more of the following dose reduction techniques: automated exposure control, adjustment of the mA and/or kV according to patient size, and/or use of iterative reconstruction technique. CONTRAST: 100 cc of Isovue-370 IV. RADIATION DOSE: CTDIvol = 18.57 mGy, DLP = 1120.11 mGy-cm COMPARISON: 06/15/2022. FINDINGS: LOWER THORAX: Unremarkable. Lung bases are clear. No cardiomegaly. No significant pericardial effusion. ABDOMEN: LIVER: Unremarkable. Homogeneous. No focal mass. GALLBLADDER AND BILE DUCTS: Unremarkable. No calcified gallstones. No gallbladder distention or wall edema. No intra- or extrahepatic biliary ductal dilation. PANCREAS: Unremarkable. No focal cystic or solid mass. SPLEEN: Unremarkable. Normal size without focal cystic or solid mass. ADRENALS: Unremarkable. No nodules. KIDNEYS AND URETERS: Unremarkable. Normal renal size and position. No hydronephrosis. STOMACH AND BOWEL: Unremarkable. No stomach or bowel distention. No focal inflammatory change. PELVIS: APPENDIX: No evidence of acute appendicitis. BLADDER: Unremarkable. REPRODUCTIVE: Unremarkable as visualized. No mass. ABDOMEN and PELVIS: INTRAPERITONEAL SPACE: Unremarkable. No ascites or other fluid collection. No free air. BONES/JOINTS: Unremarkable. No suspicious lytic or blastic abnormality. SOFT TISSUES: Unremarkable. No discrete abdominal or pelvic wall hernia. VASCULATURE: Unremarkable. Abdominal aorta is non-dilated. LYMPH NODES: Unremarkable. No enlarged lymph nodes. CT/Abdomen/Pelvis W IV Cont ONLY IMPRESSION: Negative CT of the abdomen and pelvis with intravenous contrast. Electronically Signed: Leland Saldaña MD at 2:50 EDT ,
[2023-07-30 01:36] LABS: Absolute Lymphocyte Count 1.26 X10^3/uL (0.83-4.51); Absolute Neutrophil Count 12.6 X10^3/uL (2.0-7.7); Basophil# 0.06 X10^3/uL; Basophil% 0.4 % (0-1); Eosinophil# 0.02 X10^3/uL; Eosinophils% 0.1 % (0-5); Hematocrit 45.7 % (40-54); Hemoglobin 15.4 g/dL (13.0-16.5); Lymphocyte # 1.26 X10^3/ul (0.83-4.51); Lymphocyte % 8.4 % (19-41); Mean Corp Hgb Conc 33.7 g/dL (32-36); Mean Corpuscular Hgb 31.4 pg (27.0-32.0); Mean Corpuscular Volume 93.1 fL (80-94); Mean Platelet Vol. 9.8 fl (6.2-12.0); Monocyte# 0.89 X10^3/uL; Monocyte% 5.9 % (0-10); NRBC Flagged by Analyzer 0 % (0-5); Neutrophil # 12.64 X10^3/uL (2.7-7.7); Neutrophil % 84.5 % (47-70); Platelet Count 342 K/mm3 (150-450); RBC Distribution Width CV 12.9 % (11.6-14.6); Red Blood Count 4.91 M/mm3 (4.6-6.2)
[2023-07-30] MEDS: Ondansetron 4 MG/2 ML Vial IV (01:46)
[2023-07-30] MEDS: HYDROmorphone 1 MG/ML Syringe 0.5 MG IV (01:46)
[2023-07-30 01:53] LABS: ALB/GLOB Ratio 1.3 RATIO (0.9-2.4); AST(SGOT) 21 U/L (15-37); Alanine Aminotransfer ALT/SGPT 28 U/L (16-61); Albumin, Serum 4.9 g/dL (3.2-5.0); Alkaline Phosphatase 66 U/L (45-117); Anion Gap 11 (5-15); BUN 13 mg/dL (7-18); BUN/Creat Ratio 9.9 RATIO (10-20); Calcium,Total 10.3 mg/dL (8.5-10.1); Chloride 104 mmol/L (98-107); Creatinine, Serum 1.31 mg/dL (0.70-1.30); EST Glomerular Filtration Rate 68 mL/min (>60); Est Glom Filt Rate - Afr Amer 83 mL/min (>60); Estimated Creatinine Clearance 91.55 ml/min; Globulin 3.9 g/dL (2.2-4.2); Glucose 131 mg/dL (74-106); Potassium 3.8 mmol/L (3.5-5.1); Protein, Total 8.8 g/dL (6.4-8.2); Sodium Level 138 mmol/L (136-145)
[2023-07-30 02:59] LABS: Lactic Acid 1.9 mmol/L (0.4-1.9)
--- NOTE | 2023-07-30 03:15 | ED.VIS.GI ---
HPI HPI - GI History of Present Illness Chief Complaint: Abd Pain Detail of Chief Complaint: Associated with nausea, vomiting diarrhea per triage. Informant: patient and spouse/S.O. Abdominal Pain/Flank Pain Onset: Today Context: Sudden Onset Timing: Continuous (Pain is continuous. He has history of colitis and is seen by Dr. Marshall) Quality: Aching and Cramping Location: Diffuse Current Severity: Severe Maximum Severity: Severe Worsened by: Movement Relieved by: Nothing Nausea/Vomiting/Emesis GI Symptom: Positive for Nausea and Vomiting Onset: Today Quality: Negative for Nonbilious, Blood streaks, Coffee ground or Hematemesis Diarrhea/Melena/Hematochezia GI Symptom: Positive for Diarrhea (1 or 2 mushy stools); Negative for Melena or Hematochezia Associated Symptoms Associated Symptoms: Negative for Dysuria, Frequency, Hematuria or Urgency Narrative Narrative: Patient is a 28-year-old male. He has history of gastritis, abdominal pain, nausea and vomiting. Review of prior records indicate he has history of cannabis use. He presents because of abdominal pain nausea vomiting diarrhea per significant other since he was not answering many questions. Significant other states this has happened in the past when he had a flare of his colitis. He is present on no medicine. His colitis is treated with diet. He has intolerance to dairy products. He his significant other denied history of lactulose intolerance or celiac sprue disease. Patient was scoped by Dr. Louie Lerma. Patient had evidence of gastritis. There is no evidence of ulcer. Furthermore Dr. Marshall's note was reviewed. He believes patient has irritable bowel syndrome. There is no mention of Crohn's disease or ulcerative colitis. He had a case of colitis noted on CAT scan June 2022. He has had numerous ER visits in the past 12 months with no known cause of his abdominal pain. Prior similar symptoms: Yes Recent Illness/Hospitalization: No PFSH PFS Medical History Abdominal pain Depression Former smoker Nausea and vomiting Subclinical hypothyroidism Vitamin D deficiency Home Medications ondansetron 4 mg disintegrating tablet 4 mg PO TID PRN nausea and vomiting #21 tabs 03/31/23 [Rx Last Taken Unknown] escitalopram oxalate 20 mg tablet 20 mg PO DAILY 07/30/23 [History Last Taken Unknown] Allergy/AdvReac Type Severity Reaction Status Date / Time adhesive tape Allergy Rash Verified 07/30/23 01:19 ibuprofen [From Motrin] AdvReac Upset Verified 07/30/23 01:19 Stomach Family History Mother Asthma Surgical History History of appendectomy Social History household members: significant other Smoking Status: Never smoker alcohol intake: never substance use type: marijuana ROS ROS ED Constitutional Constitutional ED: Denies chills, fever(s), subjective, sweats or weight loss ENT ENT ED: Denies ear pain, rhinorrhea or sore throat Cardiovascular Cardiovascular: Denies chest pain, orthopnea, palpitations, paroxysmal nocturnal dyspnea or racing heartbeat Respiratory/Chest Respiratory/Chest: Denies cough, dyspnea, dyspnea on exertion, orthopnea or paroxysmal nocturnal dyspnea Gastrointestinal Gastrointestinal: Reports abdominal pain, diarrhea, nausea and vomiting; Denies constipation or melena Genitourinary Genitourinary ED: Denies dysuria, hematuria or urinary frequency Musculoskeletal Musculoskeletal: Denies arthralgias, back pain, myalgias or neck pain Integumentary Denies rash Endocrine Endocrinology: Denies polydipsia or polyphagia Hematologic/Lymphatic Hematologic/Lymphatic: Denies easy bleeding or easy bruising EXAM Physical Exam Const Vital Signs: 07/30/23 01:14 07/30/23 01:55 07/30/23 01:18 Temperature 99.6 F H 98 F Temperature Source Temporal Oral Pulse Rate 72 62 62 Respiratory Rate 18 15 17 Blood Pressure 126/113 H 159/76 H 152/89 H Blood Pressure Mean 117 103 110 Pulse Ox 98 100 97 Oxygen Delivery Method Room Air Room Air Room Air 07/30/23 03:04 07/30/23 02:18 07/30/23 03:00 Temperature 98.1 F 98 F Temperature Source Oral Oral Pulse Rate 62 51 L 48 L Respiratory Rate 17 16 16 Blood Pressure 148/89 H 148/89 H 162/95 H Blood Pressure Mean 108 108 117 Pulse Ox 100 100 100 Oxygen Delivery Method Room Air Room Air Room Air Patient has occasional myoclonic twitch. He had no eye contact during the history and physical. He moaned at times. Positive well nourished and well developed General Appearance ED: well developed; Negative for pallor HEENT Reports TM's clear and moist mucous membranes normocephalic and atraumatic Tympanic Membrane ED: Yes TM's clear Eyes PERRL and EOMs intact bilaterally General Eye ED: Negative for pale conjunctiva or scleral icterus Neck no lymphadenopathy, supple and no JVD Resp normal respiratory effort and clear to auscultation bilaterally Cardio regular rate, regular rhythm, S1 normal heart sound, S2 normal heart sound and no murmurs GI no masses; Negative for non-tender or non-distended GI Narrative: Abdomen is tympanitic. Does have guarding on able to determine this is voluntary or involuntary. Inspection: abdominal distention Auscultation: hypoactive bowel sounds Palpation: soft and tender other (Tenderness is diffuse.); Negative for rigid, mass, pulsatile mass or rebound tenderness present Back/Spine no CVA tenderness Extremity full ROM General Extremety ED: Negative for edema or tenderness General Extremity: Negative for edema Neuro CN's II-XII intact bilaterally and moves all extremities Psych Psych Narrative: As previously documented there was no eye contact. He occasionally would moan. At 1 point I was asked to return and see him because he was having abnormal movement. Suspect this is voluntary abnormal movement. Skin no wounds General Skin Exam: Negative for jaundice or pallor Lesions: no lesions Rashes: no rashes MDM MDM MDM Narrative Medical decision making narrative: Differential diagnoses abdominal pain of unknown etiology, colitis, cannabis hyperemesis syndrome with pain, irritable bowel syndrome, there is a history of gastritis per Dr. Louie Lerma's note. History & Record Review Additional record(s) reviewed:: Prior inpatient record (He was admitted approximately 2 months ago for colitis. This was not felt to be inflammatory.), Prior outpatient record, Prior ED visit and Prior labs Lab Data Attestation: I reviewed the patient's lab results. Lab results narrative: White count is elevated. This is nonspecific. Electrolyte panel is remarked for creatinine of 1.31 with an estimated GFR of 68. Lactate is normal. Hepatic profile was unremarkable. Labs: Laboratory Results - last 24 hr 07/30/23 07/30/23 07/30/23 01:25 01:47 02:25 WBC 15.0 H RBC 4.91 Hgb 15.4 Hct 45.7 MCV 93.1 MCH 31.4 MCHC 33.7 RDW Std Deviation 44.0 H RDW Coeff of Tanya 12.9 Plt Count 342 MPV 9.8 Immature Gran % (Auto) 0.700 Neut % (Auto) 84.5 H Lymph % (Auto) 8.4 L [place] % (Auto) 5.9 Eos % (Auto) 0.1 Baso % (Auto) 0.4 Absolute Neuts (auto) 12.6 H Absolute Lymphs (auto) 1.26 Nucleated RBC % 0 Sodium 138 Potassium 3.8 Chloride 104 Carbon Dioxide 23.0 Anion Gap 11 BUN 13 Creatinine 1.31 H Estim Creat Clear Calc 91.55 Est GFR (MDRD) Af Amer 83 Est GFR (MDRD) Non-Af 68 BUN/Creatinine Ratio 9.9 L Glucose 131 H Lactic Acid Cancelled 1.9 Calcium 10.3 H Total Bilirubin 0.60 AST 21 ALT 28 Alkaline Phosphatase 66 Total Protein 8.8 H Albumin 4.9 Globulin 3.9 Albumin/Globulin Ratio 1.3 Radiography Diagnostic Testing: Clinical Impression(s) from Imaging Studies Abdomen/Pelvis CT 07/30/23 01:32 IMPRESSION: Negative CT of the abdomen and pelvis with intravenous contrast. Electronically Signed: Leland Saldaña MD at 2:50 EDT , CT was reviewed and agree there is no abnormality noted. Suspect his nausea vomiting and abdominal pain is due to cannabis hyperemesis syndrome. Discharge Plan Triage Chief Complaint: Abd Pain Other Complaint: Nausea/Vomiting/Diarrhea ED Provider: Benny Stacy Dx/Rx/DC Orders Clinical Impression: Abdominal pain of unknown etiology, Hyperlipidemia, Nausea & vomiting, Leukocytosis, Elevated serum creatinine, Hx of anxiety disorder, History of IBS Instructions: ED Irritable Bowel Syndrome, ED Abdominal Pain Unkn Cause Male... Prescriptions: No Action ondansetron 4 mg tablet,disintegrating 4 mg PO TID PRN (Reason: nausea and vomiting) Qty: 21 0RF escitalopram oxalate 20 mg tablet 20 mg PO DAILY Primary Care Provider: Care Physician,No Primary Referrals: Care Physician,No Primary [Primary Care Provider] - Doctor,Your [Non-Staff] - 3-5 Days if not improving Activity Restrictions/Additional Instructions: You will need to follow-up with your doctor. The name of your doctor appears on your insurance card issued to you by [facility]. Reviewing prior records Dr. Marshall believes you have irritable bowel syndrome. You were given information on irritable bowel syndrome. Disposition Disposition: Home, Self Care
== END 2023-07-30 04:07 | disposition home or self-care (01) ==
PROVIDERS: Emergency Provider Emergency Medicine; Visit Provider Emergency Medicine
DX: R10.9 Unspecified abdominal pain (principal); F41.9 Anxiety disorder, unspecified; D72.829 Elevated white blood cell count, unspecified; F12.90 Cannabis use, unspecified, uncomplicated; E78.5 Hyperlipidemia, unspecified; R11.2 Nausea with vomiting, unspecified; Z79.899 Other long term (current) drug therapy
CPT/HCPCS: 74177; 80053; 83605; 85025; 96374; 96375; 99284; Q9967; A4216; J2405

== ENCOUNTER 2025-05-11 03:23 | Emergency (ER) | payer BC, SELFPAY ==
[2025-05-11 03:24] VITALS: BP 158/124; PULSE 76; RESP 22; TEMP 36.6; O2SAT 100; BMI 31.9
[2025-05-11] MEDS: 0.9% Normal Saline (1000mL) 1,000 ML 999 ML IV (03:56)
[2025-05-11 03:57] LABS: Hematocrit 41.5 % (40-54); Hemoglobin 14.1 g/dL (13.0-16.5); Immature Granulocytes Count 0.050 X10^3/uL (0.0-0.0); Mean Corp Hgb Conc 34.0 g/dL (32-36); Mean Corpuscular Volume 91.6 fL (80-94); Mean Platelet Vol. 9.9 fl (6.2-12.0); NRBC Flagged by Analyzer 0 % (0-5); Platelet Count 338 K/mm3 (150-450); RBC Distribution Width CV 12.3 % (11.6-14.6); RBC Distribution Width SD 41.3 fl (35.1-43.9); Red Blood Count 4.53 M/mm3 (4.6-6.2); White Blood Count 11.0 K/mm3 (4.4-11.0)
--- NOTE | 2025-05-11 04:03 | ED.RN ---
This RN was at the bedside with the patient to give the patient the medications. This RN educated the patient on the Mylanta and the vicious lidocaine medications and proceeded to give the patient the medications. However, the patient continued to say that he could not breathe, despite his oxygen levels being 100% and the patient holding his breath. This RN stood at the bedside for 10 minutes before the patient still refused to swallow the medications stating, I can't. notified.
[2025-05-11] MEDS: Pantoprazole Sodium 40 MG in 0.9% Normal Saline (100mL MB+) 100 ML 300 MG IV (04:09)
--- OUTSIDE RECORDS SUMMARY | 2025-05-11 04:12 | XMS RPT_ITS | CCD ---
Author Organization [facility] Care Team Providers Care Physical Therapist Assistant Name Role Phone MARKER Unavailable Unavailable NO FAMILY DOCTOR, NO FAMILY DOCTOR Unavailable Unavailable NO FAMILY DOCTOR, NO FAMILY DOCTOR Unavailable Unavailable MARKER Unavailable Unavailable NO FAMILY DOCTOR, NO FAMILY DOCTOR Unavailable Unavailable NGA FLORES Unavailable Unavailable NO FAMILY DOCTOR, NO FAMILY DOCTOR Unavailable Unavailable ASHLEE ISABEL Unavailable Unavailable Dr. Mikayla Gill Primary Care Provider Dr. Mikayla Gill Attending Provider 1(330) Dr. Mikayla Gill Referring Provider 1(330) Dr. Mikayla Gill Primary Care Provider Dr. Mikayla Gill Referring Provider 1(330) Dr. Franco Marshall Attending Provider [phone] Mikayla Gill MD Primary Care Provider 1(330 ) Dr. Mikayla Gill Primary Care Provider Dr. Mikayla Gill Referring Provider 1(330) Dr. Mikayla Gill Attending Provider 1(330) Dr. Mikayla Gill Primary Care Provider Mikayla Gill MD Primary Care Provider 1(330 ) Dr. Mikayla Gill Primary Care Provider Dr. Mikayla Gill Attending Provider 1(330) PERNELL SWARTZ MD Attending Unavailable NO FAMILY PHYSICIAN, 837 Primary Care Unavail able Mikayla Gill Primary Care Unavailable Shilo Olmedo Attending Unavailable Mikayla Gill Primary Care Unavailable Roney Paul Attending Unavailable Mikayla Gill Primary Care Unavailable Stacy Benny Attending Unavailable Regis Benny Attending Unavailable Care Physician, No Primary Primary Care Unava ilable Kathy DANIELS, Mikayla Serrano Primary Care Provider MIKAYLA GILL Primary Care Unavailable BRAYDEN POTTER Attending Unavailable MIKAYLA GILL Primary Care Unavailable BRAYDEN POTTER Referring Unavailable Allergies Allergy Classification Reported Allergen(s) Allergy Type Date of Onset Reaction(s) Facility (20 sources) Adhesive Tape; Translations: [adhesive tape] Allergy to substance 2 [facility] (20 sources) Ibuprofen; Translations: [IBUPROFEN] Drug Allergy 2 GI Upset [facility] (7 sources) Tegaderm IV Guard Propensity to adverse reactions 2 [facility] Work Phone: (1 source) Ibuprofen Drug Allergy 4 [facility] Medications Current Medications Medication Drug Class(es) Dates Sig (Normalized) Sig (Original) amoxicillin 875 mg / clavulanate 125 mg oral tablet (1 source) Penicillin-class Antibacterial Start: 06-15-2022 take 1 tablet by mouth twice daily Amoxicillin-Pot Clavulanate Active 1 TABLET PO TWICE A DAY June 15, 2022 12:00am Cholecalciferol (6 sources) Vitamin D Start: 09-04-2021 take 100 ug by mouth once daily Cholecalciferol (Vitamin D3) Active 100 MCG PO DAILY September 04, 2021 12:28pm Start: 09-04-2021 take 100 ug by mouth once daily Cholecalciferol (Vitamin D3) Active 100 MCG PO DAILY September 04, 2021 12:00am dicyclomine hydrochloride 10 mg oral capsule (2 sources) Anticholinergic Start: 01-09-2022 take 20 mg by mouth three times daily before mealtime Dicyclomine Active 20 MG PO THREE TIMES DAILY BEFORE MEALS January 09, 2022 12:00am ergocalciferol 1.25 mg oral capsule (20 sources) Provitamin D2 Compound Start: 07-19-2021 take 2000 [IU] by mouth every week Ergocalciferol (Vitamin D2) Active 2000 UNIT PO EVERY WEEK July 19, 2021 3:15am Start: 10-14-2020 End: 07-19-2021 take 65701 [IU] by mouth every week Ergocalciferol (Vitamin D2) Discontinued 25245 UNIT PO EVERY WEEK October 14, 2020 12:00am July 19, 2021 3:15am escitalopram 20 mg oral tablet (19 sources) Serotonin Reuptake Inhibitor Start: 07-30-2023 take 20 mg by mouth once daily Escitalopram Oxalate Active 20 MG PO DAILY July 30, 2023 12:00am Start: 01-05-2022 take 20 mg by mouth once daily Escitalopram Oxalate Active 20 MG PO DAILY January 05, 2022 8:43am Start: 12-01-2021 End: 01-05-2022 take 1 tablet by mouth once daily Escitalopram Oxalate (Lexapro) 10 mg tablet Discontinued 10 MG PO DAILY December 01, 2021 12:00am January 05, 2022 8:43am famotidine 20 mg oral tablet (6 sources) Histamine-2 Receptor Antagonist Start: 06-10-2022 take 20 mg by mouth twice daily Famotidine Active 20 MG PO TWICE A DAY June 10, 2022 12:00am ondansetron 4 mg disintegrating oral tablet (20 sources) Serotonin-3 Receptor Antagonist Start: 03-31-2023 take 4 mg by mouth three times daily Ondansetron Active 4 MG PO THREE TIMES A DAY March 31, 2023 2:06am Start: 06-10-2022 End: 04-01-2023 take 4 mg by mouth every six hours Ondansetron Hcl Discontinued 4 MG PO EVERY 6 HOURS June 10, 2022 1:00am April 01, 2023 10:22am Start: 01-09-2022 take 4 mg by mouth e very eight hours as needed Ondansetron Active 4 MG PO EVERY 8 HOURS NEEDED January 09, 2022 12:00am Start: 05-15-2021 End: 01-03-2022 take 4 mg by mouth every eight hours Ondansetron Discontinued 4 MG PO Q8H September 02, 2021 12:00am January 03, 2022 11:51am Start: 07-02-2020 End: 09-15-2024 take 1 tablet by mouth every six hours as needed for nausea ondansetron orally disintegrating (ZOFRAN ODT) 4 mg disintegrating tablet Indications: Non-intractable vomiting with nausea, unspecified vomiting type Take 1 tablet by mouth every 6 hours as needed for Nausea/Vomiting. 9 tablet 07/02/2020 09/15/2024 Discontinued Comment on above: Take 1 tablet by yang every 6 hours as needed for Nausea/Vomiting. predniSONE 20 mg oral tablet (20 sources) Start: take 40 mg by mouth once daily Prednisone Active 40 MG PO DAILY June 15, 2022 12:00am Start: 11-16-2021 End: 09-15-2024 predniSONE (DELTASONE) 10 mg tablet Indications: Allergic contact dermatitis, unspecified trigger Take 4 tabs daily x 3 days, then 3 tabs x 3 days, 2 tabs x 3 days, then 1 tab x3 days with food. 30 tablet 11/16/2021 09/15/2024 Discontinued Comment on above: Take 4 tabs daily x 3 days, then 3 tabs x 3 days, 2 tabs x 3 days, then 1 tab x3 days with food. promethazine hydrochloride 25 mg rectal suppository (3 sources) Phenothiazine Start: 11-23-2021 Promethazine Active 25 MG RC EVERY 6 HOURS November 23, 2021 12:00am Completed/Discontinued Medications Medication Drug Class(es) Dates Sig (Normalized) Sig (Original) brompheniramine maleate 0.4 mg/ml / dextromethorphan hydrobromide 2 mg/ml / pseudoephedrine hydrochloride 6 mg/ml oral solution (2 sources) alpha-Adrenergic Agonist, Uncompetitive B-gxqkaa-D-aspartat e Receptor Antagonist, Sigma-1 Agonist Start: 04-30-2022 End: 09-15-2024 take 10 mL by mouth every six hours as needed Brompheniramine-P seudoeph-DM (BROMFED DM) 2-30-10 mg/5 mL syrup Take 10 mL by mouth four times daily as needed. 200 mL 04/30/2022 09/15/2024 Discontinued Comment on above: Take 10 mL by mouth four times daily as needed. hydrOXYzine hydrochloride 25 mg oral tablet (3 sources) Antihistamine Start: 11-16-2021 End: 09-15-2024 take 1-2 tablets by mouth at bedtime as needed hydrOXYzine HCl (ATARAX) 25 mg tablet Indications: Allergic contact dermatitis, unspecified trigger Take 1-2 tablets by mouth at bedtime as needed for itching/rash. 30 tablet 11/16/2021 09/15/2024 Discontinued Comment on above: Take 1-2 tablets by mouth at bedtime as needed for itching/rash. ibuprofen 600 mg oral tablet (20 sources) Nonsteroidal Anti-inflammatory Drug Start: 09-19-2020 End: 09-19-2020 Ibuprofen Discontinued 600 MG PO NEEDED September 19, 2020 12:00am September 19, 2020 2:25pm omeprazole 40 mg delayed release oral capsule (20 sources) Proton Pump Inhibitor Start: 09-02-2021 End: 09-15-2024 take 1 capsule by mouth once daily omeprazole (PRILOSEC) 40 mg capsule TAKE 1 CAPSULE BY MOUTH DAILY FOUR weeks 09/02/2021 09/15/2024 Discontinued Start: 07-27-2020 End: 10-14-2020 take 40 mg by mouth once daily Omeprazole Discontinued 40 MG PO DAILY September 19, 2020 2:26pm October 14, 2020 9:51am for at least 2 weeks Start: 08-27-2017 End: 07-06-2020 take 20 mg by mouth twice daily Omeprazole Discontinued 20 MG PO TWICE A DAY August 27, 2017 12:00am July 06, 2020 2:48pm Comment on above: TAKE 1 CAPSULE BY MO [facility] DAILY FOUR weeks sucralfate 1000 mg oral tablet (20 sources) Aluminum Complex Start: 09-02-2021 End: 12-01-2021 take 1 g by mouth twice daily Sucralfate Discontinued 1 GM PO TWICE A DAY September 02, 2021 12:00am December 01, 2021 2:06pm Problems Active Problems Problem Classification Problem Date Documented Da te Episodic/Chronic Abdominal pain (20 sources) Unspecified abdominal pain; Translations: [Generalized abdominal pain] Onset: Episodic Allergic reactions (1 source) Allergic contact dermatitis; Translations: [Allergic contact dermatitis, unspecified cause] Episodic Anxiety disorders (20 sources) Panic attack; Translations: [Panic disorder [episodic paroxysmal anxiety]] Chronic Diseases of white blood cells (1 source) Leukocytosis; Translations: [Elevated white blood cell count, unspecified] 07-30-2023 Chronic Disorders of lipid metabolism (20 sources) Hyperlipidemia; Translations: [Hyperlipidemia, unspecified] Chronic Esophageal disorders (19 sources) Nila-Stewart tear; Translations: [Gastro-esophageal laceration-hemorrhage syndrome] 01-08-2022 Episodic Essential hypertension (8 sources) Hypertensive disorder; Translations: [Essential (primary) hypertension] 06-04-2022 Chronic Fluid and electrolyte disorders (20 sources) Hypokalemia, gastrointestinal losses; Translations: [Hypokalemia] 09-12-2021 Episodic Gastritis and duodenitis (20 sources) Acute gastritis; Translations: [Acute gastritis without bleeding] 09-20-2020 Episodic Headache, including migraine (1 source) Headache; Translations: [Headache] Onset: 8 Episodic Headache, including migraine (1 source) Headache, including migraine Onset: 8 Miscellaneous mental health disorders (4 sources) Psychologic conversion disorder; Translations: [Dissociative and conversion disorder, unspecified] 09-18-2022 Chronic Noninfectious gastroenteritis (6 sources) Colitis; Translations: [Noninfective gastroenteritis and colitis, unspecified] 06-24-2022 Episodic Nonspecific chest pain (5 sources) Chest wall pain; Translations: [Other chest pain] Onset: 5 09-15-2024 Episodic Nutritional deficiencies (20 sources) Vitamin D deficiency; Translations: [Vitamin D deficiency, unspecified] Chronic Other bone disease and musculoskeletal deformities (1 source) Costal chondritis; Translations: [Chondrocostal junction syndrome [Tietze]] 09-15-2024 Episodic Other bone disease and musculoskeletal deformities (1 source) Chondrocostal junction syndrome [Tietze]; Translations: [Costochondritis] Onset: 5 Episodic Other disorders of stomach and duodenum (8 sources) Cyclical vomiting syndrome; Translations: [Cyclical vomiting syndrome unrelated to migraine] 06-04-2022 Episodic Other gastrointestinal disorders (20 sources) History of gastritis; Translations: [Personal history of other diseases of the digestive system] 03-21-2021 Episodic Other gastrointestinal disorders (10 sources) Diarrhea; Translations: [Diarrhea, unspecified] 03-17-2022 Episodic Other gastrointestinal disorders (1 source) History of irritable bowel syndrome; Translations: [Personal history of other diseases of the digestive system] 07-30-2023 Episodic Other screening for suspected conditions (not mental disorders or infectious disease) (20 sources) Patient encounter status; Translations: [Encounter for screening for diabetes mellitus] 05-31-2021 Episodic Other skin disorders (1 source) Localized swelling, mass and lump, trunk; Translations: [Localized swelling, mass and lump, trunk] Onset: 7 Chronic Other upper respiratory infections (1 source) Viral upper respiratory tract infection; Translations: [Acute upper respiratory infection, unspecified] Episodic Regional enteritis and ulcerative colitis (7 sources) Ulcerative pancolitis; Translations: [Ulcerative (chronic) pancolitis without complications] 06-15-2022 Chronic Screening and history of mental health and substance abuse codes (1 source) H/O: anxiety state; Translations: [Personal history of other mental and behavioral disorders] 07-30-2023 Episodic Substance-related disorders (4 sources) Cannabis abuse; Translations: [Cannabis use, unspecified, uncomplicated] 09-18-2022 Episodic Thyroid disorders (20 sources) Subclinical hypothyroidism; Translations: [Other specified hypothyroidism] Chronic Unclassified (1 source) Fever, unspecified / R50.9(ICD-9) Onset: 7 Unclassified (1 source) Localized swelling, mass and lump, trunk / R22.2(ICD-9) Onset: 7 Unclassified (1 source) Sebaceous cyst / L72.3(ICD-9) Onset: 7 Unclassified (1 source) Local infection of the skin and subcutaneous tissue, unsp / L08.9(ICD-9) Onset: 7 Unclassified (1 source) Nicotine dependence, unspecified, uncomplicated / F17.200(ICD-9) Onset: 7 Unclassified (1 source) Acquired absence of other organs / 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(ICD-9) Onset: 7 Unclassified (1 source) Unspecified abdominal pain / R10.9(ICD-9) Onset: 8 Unclassified (1 source) Lower abdominal pain, unspecified / R10.30(ICD-9) Onset: 7 Unclassified (2 sources) Foreign body in left ear, initial encounter / T16.2XXA(ICD-9) Onset: 7 Unclassified (1 source) Unspecified otitis externa, left ear / H60.92(ICD-9) Onset: 7 Unclassified (1 source) Exposure to other specified factors, initial encounter / X58.XXXA(ICD-9) Onset: 7 Unclassified (1 source) Nausea with vomiting, unspecified / R11.2(ICD-9) Onset: 8 Unclassified (1 source) Diarrhea, unspecified / R19.7(ICD-9) Onset: 8 Unclassified (1 source) Generalized abdominal pain / R10.84(ICD-9) Onset: 8 Unclassified (1 source) Tobacco use / Z72.0(ICD-9) Onset: 8 Unclassified (1 source) Acute sinusitis, unspecified / J01.90(ICD-9) Onset: 8 Viral infection (20 sources) Disease caused by 2019-nCoV; Translations: [COVID-19] Episodic Past or Other Problems Problem Classification Problem Date Documented Da te Episodic/Chronic Nausea and vomiting (20 sources) Nausea and vomiting; Translations: [Nausea with vomiting, unspecified] Onset: 04-04-2023 03-17-2022 Episodic Unclassified (1 source) Fever, unspecified; Translations: [Fever, unspecified] Onset: 02-09-2017 Unclassified (1 source) Foreign body in left ear, initial encounter; Translations: [Foreign body in left ear, initial encounter] Onset: 01-12-2017 Results Test Name Value Interpretation Reference Range Facility [facility] 09-15-2024 CNOV Office Visit (UCWSTR ) MANAV REBOLLEDO ([id number]) 1995 Date Time Provider Department 09/15/24 7:45 BRAYDEN ODOM [facility] During your visit today, we recorded the following information about you: Temperature Pulse Respiration Blood pressure 98.1 degrees 73/minute 16/minute 130/80 Weight 101.9 kg Brayden Potter MD 09/15/2024 8:45 AM Signed [facility] Subjective Manav Rebolledo is a 29 year old male. Patient presents with: right shoulder pain: X 2 weeks-worse yesterday after lifting Right chest pain: Duration: mild for 2 weeks, worse after bench pressing yesterday Location: below the right pectoral muscle Character: sharp Radiation: around to the back, shooting down to the right arm at times Aggravating: deep breaths, coughing, sneezing, reaching, pulling, lifting, and bending forward Relieving: shallow breaths Pain relievers: none (PHx of nausea and vomiting exacerbated by ibuprofen which improved with better diet and weight loss). Associated: short of breath avoiding pain, tender Pertinent negatives: Denies numbness, fever, cough, hemoptysis, palpitations Review of Systems Objective BP 130/80 Pulse 73 Temp 36.7 ?C (98.1 ?F) (Tympanic) Resp 16 Wt 101.9 kg (224 lb 10.4 oz) SpO2 98% Physical Exam Constitutional: General: He is not in acute distress. Appearance: He is not ill-appearing or diaphoretic. HENT: Mouth/Throat: Mouth: Mucous membranes are moist. Pharynx: No oropharyngeal exudate or posterior oropharyngeal erythema. Eyes: Extraocular Movements: Extraocular movements intact. Conjunctiva/sclera: Conjunctivae normal. Pupils: Pupils are equal, round, and reactive to light. Neck: Comments: Full ROM of neck neck with discomfort on right lateral extension Cardiovascular: Rate and Rhythm: Normal rate and regular rhythm. Heart sounds: No murmur heard. Pulmonary: Effort: No respiratory distress. Breath sounds: No wheezing, rhonchi or rales. Chest: Comments: Chest wall tenderness right sternal border and approximately fourth costochondral cartilage. No lateral or posterior rib tenderness. No superficial muscle tenderness. Musculoskeletal: Cervical back: No rigidity or tenderness. Comments: SHOULDER: right compared to left. No deformity or swelling. Palpation of clavicle non-tender, AC joint non-tender, glenohumeral joint non-tender. ROM: normal. Impingement test AND Cross arm test: induce chest pain on the right Lymphadenopathy: Cervical: No cervical adenopathy. Neurological: Mental Status: He is alert. {ASSESSMENT/PLAN: 1. Right-sided chest wall pain - ICD9: 786.52, ICD10: R07.89 (primary diagnosis) 2. Costochondritis - ICD9: 733.6, ICD10: M94.0 - XR RIBS/CHEST 3V AP RIB/OBLS/CXR RIGHT Normal cardiomediastinal silhouette. No focal consolidation. No discernible pleural effusion or pneumothorax. No acute displaced right-sided rib fracture identified. Treat costochondritis with analgesia and rest. He will begin with acetaminophen which is best tolerated for him. He will switch to ibuprofen and omeprazole if not improving. Provided work note for today and tomorrow. 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 Follow up with worsening cough, worsening shortness of breath, increasing chest pain, or late onset fever. Brayden Potter MD Differential Diagnoses - Costochondritis is more likely for the following reason(s): Reproducible on palpation; likely induced by bench press activity, suggested by HANDP - Pectoral muscle tear is less likely for the following reason(s): No pectoral muscle tenderness on palpation, HANDP not suggestive - Cardiopulmonary origin of pain is less likely for the following reason(s): Reproducible on exam Procedures Allergies As of Date: 09/15/2024 Noted Allergy Reaction IBUPROFEN 07/19/2021 8 - GI Upset Date Reviewed: 05/20/2023 Reviewed by: Sabi Rogel LPN - Fully Assessed Reason for Visit: right shoulder pain [Other] Cmt: X 2 weeks-worse yesterday after lifting Primary Visit Diagnosis:Right-sided chest wall pain [R07.89] Other Visit Diagnosis:Costochondri tis [M94.0] Order(s):XR RIBS/CHEST 3V AP RIB/OBLS/CXR RIGHT [[id number]] Order #: [id number] FUTURE Problem List As Of Date: 09/15/2024 (None) Medications Discontinued During This Encounter Prescriptions - ondansetron orally disintegrating (ZOFRAN ODT) 4 mg disintegrating tablet (Discontinued) Reported on 11/16/2021 - predniSONE (DELTASONE) 10 mg tablet (Discontinued) Reported on 04/30/2022 - hydrOXYzine HCl (ATARAX) 25 mg tablet (Discontinued) Reported on 05/20/2023 - omeprazole (PRILOSEC) 40 mg capsule (Discontinued) Reported on 05/20/2023 - Brompheniramine-Pseudo eph-DM (BROMFED DM) 2-30-10 mg/5 mL syrup (Discontinued) Reported on 05/20/2023 Level of Service: OFFICE/OUTPATIENT ESTABLISHED MO (more content not included)... Normal [facility] XR RIB/CHST 3V AP RIB/OBL/CH ST Albert 09-15-2024 XR RIB/CHST 3V AP RIB/OBL/CHST R * * *Final Report* * * DATE OF EXAM: Sep 15 2024 8:21AM WOX [id number] - XR RIB/CHST 3V AP RIB/OBL/CHST R / PROCEDURE REASON: Right-sided chest wall pain * * * * Physician Interpretation * * * * TITLE: XR RIB/CHST 3V AP RIB/OBL/CHST R CLINICAL INDICATION: Right-sided chest wall pain after lifting weights TECHNIQUE: 3 view right sided radiographic rib series with inclusion of a single frontal view of the chest COMPARISON: None FINDINGS: Normal cardiomediastinal silhouette. No focal consolidation. No discernible pleural effusion or pneumothorax. No acute displaced right-sided rib fracture identified. IMPRESSION: No radiographic evidence of acute displaced right rib fracture. Meat Stringer: ISIAH Transcribe Date/Time: Sep 15 2024 8:28A Dictated by : CARMINE KAPLAN MD This examination was interpreted and the report reviewed and electronically signed by: CARMINE KAPLAN MD on Sep 15 2024 8:30AM EST [id number] Normal [facility] XR Ribs - right Views and Ch est PAon 09-15-2024 IMPRESSION: No radiographic evidence of acute displaced right rib fracture. Meat String[facility] Transcribe Date/Time: Sep 15 2024 8:28A Dictated by : CARMINE KAPLAN MD This examination was interpreted and the report reviewed and electronically signed by: CARMINE KAPLAN MD on Sep 15 2024 8:30AM EST DIVISION OF RADIOLOGY * * *Final Report* * * DATE OF EXAM: Sep 15 2024 8:21AM WOX [id number] - XR RIB/CHST 3V AP RIB/OBL/CHST R / PROCEDURE REASON: Right-sided chest wall pain * * * * Physician Interpretation * * * * TITLE: XR RIB/CHST 3V AP RIB/OBL/CHST R CLINICAL INDICATION: Right-sided chest wall pain after lifting weights TECHNIQUE: 3 view right sided radiographic rib series with inclusion of a single frontal view of the chest COMPARISON: None FINDINGS: Normal cardiomediastinal silhouette. No focal consolidation. No discernible pleural effusion or pneumothorax. No acute displaced right-sided rib fracture identified. DIVISION OF RADIOLOGY Provider, [facility] - 09/15/2024 * * *Final Report* * * DATE OF EXAM: Sep 15 2024 8:21AM WOX [id number] - XR RIB/CHST 3V AP RIB/OBL/CHST R / PROCEDURE REASON: Right-sided chest wall pain * * * * Physician Interpretation * * * * TITLE: XR RIB/CHST 3V AP RIB/OBL/CHST R CLINICAL INDICATION: Right-sided chest wall pain after lifting weights TECHNIQUE: 3 view right sided radiographic rib series with inclusion of a single frontal view of the chest COMPARISON: None FINDINGS: Normal cardiomediastinal silhouette. No focal consolidation. No discernible pleural effusion or pneumothorax. No acute displaced right-sided rib fracture identified. IMPRESSION IMPRESSION: No radiographic evidence of acute displaced right rib fracture. Meat Stringer: [facility] Transcribe Date/Time: Sep 15 2024 8:28A Dictated by : CARMINE KAPLAN MD This examination was interpreted and the report reviewed and electronically signed by: CARMINE KAPLAN MD on Sep 15 2024 8:30AM EST [facility] Radiology Study observation (narrative) [facility] XR Ribs - right Views and Ch est PAOrdered By: [facility] Provider on 09-15-2024 [facility] Abdomen/Pelvis W IV Cont ONL Yon 07-30-2023 Abdomen/Pelvis W IV Cont ONLY [facility] [address] [place] [address] Abdomen/Pelvis W IV Cont ONLY MR#: [id number] Acct: [id number] Name: MANAV REBOLLEDO Rep #: [id number] : 1995 M 28 From: Leland Garcia PCP: Care Physician,No Primary Status: REG ER Study: Abdomen/Pelvis W IV Cont ONLY Date of Exam: Exam# [id number] Ordering Dr: Benny Stacy MD [id number] EXAM: CT ABDOMEN AND PELVIS WITH INTRAVENOUS CONTRAST CLINICAL INDICATION: Nausea, vomiting and diarrhea, abdominal guarding TECHNIQUE: Helically acquired images were obtained of the abdomen and pelvis with intravenous contrast. This CT exam was performed using one or more of the following dose reduction techniques: automated exposure control, adjustment of the mA and/or kV according to patient size, and/or use of iterative reconstruction technique. CONTRAST: 100 cc of Isovue-370 IV. RADIATION DOSE: CTDIvol = 18.57 mGy, DLP = 1120.11 mGy-cm COMPARISON: 06/15/2022. FINDINGS: LOWER THORAX: Unremarkable. Lung bases are clear. No cardiomegaly. No significant pericardial effusion. ABDOMEN: LIVER: Unremarkable. Homogeneous. No focal mass. GALLBLADDER AND BILE DUCTS: Unremarkable. No calcified gallstones. No gallbladder distention or wall edema. No intra- or extrahepatic biliary ductal dilation. PANCREAS: Unremarkable. No focal cystic or solid mass. SPLEEN: Unremarkable. Normal size without focal cystic or solid mass. ADRENALS: Unremarkable. No nodules. KIDNEYS AND URETERS: Unremarkable. Normal renal size and position. No hydronephrosis. STOMACH AND BOWEL: Unremarkable. No stomach or bowel distention. No focal inflammatory change. PELVIS: APPENDIX: No evidence of acute appendicitis. BLADDER: Unremarkable. REPRODUCTIVE: Unremarkable as visualized. No mass. ABDOMEN and PELVIS: INTRAPERITONEAL SPACE: Unremarkable. No ascites or other fluid collection. No free air. BONES/JOINTS: Unremarkable. No suspicious lytic or blastic abnormality. SOFT TISSUES: Unremarkable. No discrete abdominal or pelvic wall hernia. VASCULATURE: Unremarkable. Abdominal aorta is non-dilated. LYMPH NODES: Unremarkable. No enlarged lymph nodes. CT/Abdomen/Pelvis W IV Cont ONLY IMPRESSION: Negative CT of the abdomen and pelvis with intravenous contrast. Electronically Signed: Leland Saldaña MD at 2:50 EDT , CC: Dr. Benny Stacy MD; No Primary Care Physician Meat Stringer: Signed Normal [facility] Absolute lymphocyte countOrd ered By: Bennykeenan Stacy on 07-30-2023 Lymphocytes Auto (Unsp spec) [#/Vol] 1.26 10*3/uL 0.83-4.51 [facility] Automated lymphocyte count a s percentage of total leukocytesOrdered By: Bennykeenan Stacy on 07-30-2023 Lymphocytes/100 WBC Auto (Unsp spec) 8.4 % 19-41 [facility] Basophil percentageOrdered B y: Bennykeenan Stacy on 07-30-2023 Lactate [Moles/Vol] 1.9 mmol/L 0.4-2.0 [facility] Basophils/100 WBC (Bld) 0.4 % 0-1 [facility] Bilirubin [Mass/Vol] 0.60 mg/dL 0.20-1.00 [facility] Comment on above: For patients on eltr ombopag therapy, use of Dimension Stringer TBIL is not recommended. Chloride [Moles/Vol] 104 mmol/L 98-107 [facility] Eosinophils/100 WBC (Bld) 0.1 % 0-5 [facility] Glucose [Mass/Vol] 131 mg/dL 74-106 [facility] Comment on above: Fasting Glucose resu lt greater than or equal to 126 mg/dL suggests DIABETES MELLITUS per A.D.A. criteria. Hemoglobin (Bld) [Mass/Vol] 15.4 g/dL 13.0-16.5 [facility] Monocytes/100 WBC (Bld) 5.9 % 0-10 [facility] Neutrophils (Bld) [#/Vol] 12.6 10*3/uL 2.0-7.7 [facility] Neutrophils/100 WBC (Bld) 84.5 % 47-70 [facility] Potassium [Moles/Vol] 3.8 mmol/L 3.5-5.1 [facility] Protein [Mass/Vol] 8.8 g/dL 6.4-8.2 [facility] Sodium [Moles/Vol] 138 mmol/L 136-145 [facility] WBC (Bld) [#/Vol] 15.0 10*3/uL 4.4-11.0 [facility] CBC W/Diff, Automatedon - Absolute Lymph 1.26 X10 3/uL Normal 0.83-4.51 [facility] Comment on above: Performed By: #### L 500.4050, L100.0100 ####[facility] [address] [place], [address] Absolute Neut 12.6 X10 3/uL High 2.0-7.7 [facility] Comment on above: Performed By: #### L 500.4050, L100.0100 ####[facility] [address] [place], [address] Basophils/100 WBC (Bld) 0.4 % Normal 0-1 [facility] Comment on above: Performed By: #### L 500.4050, L100.0100 ####[facility] [address] [place], [address] Eosinophils/100 WBC (Bld) 0.1 % Normal 0-5 [facility] Comment on above: Performed By: #### L 500.4050, L100.0100 ####[facility] [address] [place], [address] Erythrocyte distribution width (RBC) [Ratio] 12.9 % Normal 11.6-14.6 [facility] Comment on above: Performed By: #### L 500.4050, L100.0100 ####[facility] [address] [place], [address] Hematocrit (Bld) [Volume fraction] 45.7 % Normal 40-54 [facility] Comment on above: Performed By: #### L 500.4050, L100.0100 ####[facility] [address] [place], [address] Hemoglobin (Bld) [Mass/Vol] 15.4 g/dL Normal 13.0-16.5 [facility] Comment on above: Performed By: #### L 500.4050, L100.0100 ####[facility] [address] [place], [address] IG% 0.700 Normal 0.0-0.9 [facility] Comment on above: Result Comment: IG% - Immature Granulocytes (promyelocytes, myelocytes and metamyelocytes) > 1% indicates that a LEFT SHIFT is Present. Performed By: #### L 500.4050, L100.0100 ####[facility] [address] [place], [address] Lymphocytes/100 WBC (Bld) 8.4 % Low 19-41 [facility] Comment on above: Performed By: #### L 500.4050, L100.0100 ####[facility] [address] [place], [address] MCH (RBC) [Entitic mass] 31.4 pg Normal 27.0-32.0 [facility] Comment on above: Performed By: #### L 500.4050, L100.0100 ####[facility] [address] [place], [address] MCHC (RBC) [Mass/Vol] 33.7 g/dL Normal 32-36 [facility] Comment on above: Performed By: #### L 500.4050, L100.0100 ####[facility] [address] [place], [address] MCV (RBC) [Entitic vol] 93.1 fL Normal 80-94 [facility] Comment on above: Performed By: #### L 500.4050, L100.0100 ####[facility] [address] [place], [address] Monocytes/100 WBC (Bld) 5.9 % Normal 0-10 [facility] Comment on above: Performed By: #### L 500.4050, L100.0100 ####[facility] [address] [place], [address] Neutrophils/100 WBC (Bld) 84.5 % High 47-70 [facility] Comment on above: Performed By: #### L 500.4050, L100.0100 ####[facility] [address] [place], [address] Nucleated RBC (Bld) [#/Vol] 0 10*3/uL Normal 0-5 [facility] Comment on above: Performed By: #### L 500.4050, L100.0100 ####[facility] [address] [place], [address] Platelet mean volume (Bld) [Entitic vol] 9.8 fL Normal 6.2-12.0 [facility] Comment on above: Performed By: #### L 500.4050, L100.0100 ####[facility] [address] [place], [address] Platelets (Bld) [#/Vol] 342 10*3/uL Normal 150-450 [facility] Comment on above: Performed By: #### L 500.4050, L100.0100 ####[facility] [address] [place], [address] RBC (Bld) [#/Vol] 4.91 10*6/uL Normal 4.6-6.2 [facility] Comment on above: Performed By: #### L 500.4050, L100.0100 ####[facility] [address] [place], [address] RDW SD 44.0 fl High 35.1-43.9 [facility] Comment on above: Performed By: #### L 500.4050, L100.0100 ####[facility] [address] [place], [address] WBC (Bld) [#/Vol] 15.0 10*3/uL High 4.4-11.0 [facility] Comment on above: Performed By: #### L 500.4050, L100.0100 ####[facility] [address] [place], [address] Comprehensive Metabolic Prof ilon 07-30-2023 Albumin [Mass/Vol] 4.9 g/dL Normal 3.2-5.0 [facility] Comment on above: Performed By: #### L 500.4050, L100.0100 ####[facility] [address] [place], [address] Albumin/Globulin [Mass ratio] 1.3 {ratio} Normal 0.9-2.4 [facility] Comment on above: Performed By: #### L 500.4050, L100.0100 ####[facility] [address] [place], [address] ALK P 66 U/L Normal 45-117 [facility] Comment on above: Performed By: #### L 500.4050, L100.0100 ####[facility] [address] [place], [address] ALT [Catalytic activity/Vol] 28 U/L Normal 16-61 [facility] Comment on above: Performed By: #### L 500.4050, L100.0100 ####[facility] [address] [place], [address] AST [Catalytic activity/Vol] 21 U/L Normal 15-37 [facility] Comment on above: Performed By: #### L 500.4050, L100.0100 ####[facility] [address] [place], [address] Bilirubin [Mass/Vol] 0.60 mg/dL Normal 0.20-1.00 [facility] Comment on above: Result Comment: For patients on eltrombopag therapy, use of Dimension Stringer TBIL is not recommended. Performed By: #### L 500.4050, L100.0100 ####[facility] [address] [place], [address] BUN/CRE 9.9 RATIO Low 10-20 [facility] Comment on above: Performed By: #### L 500.4050, L100.0100 ####[facility] [address] [place], [address] CA,Total 10.3 mg/dL High 8.5-10.1 [facility] Comment on above: Performed By: #### L 500.4050, L100.0100 ####[facility] [address] [place], [address] Chloride [Moles/Vol] 104 mmol/L Normal 98-107 [facility] Comment on above: Performed By: #### L 500.4050, L100.0100 ####[facility] [address] [place], [address] CO2 [Moles/Vol] 23.0 mmol/L Normal 21.0-32.0 [facility] Comment on above: Performed By: #### L 500.4050, L100.0100 ####[facility] [address] [place], [address] Creatinine [Mass/Vol] 1.31 mg/dL High 0.70-1.30 [facility] Comment on above: Result Comment: The validity of the calculated GFR GFRAA in patients over 70 years has not been determined. Clinical correlation is essential. Performed By: #### L 500.4050, L100.0100 ####[facility] [address] [place], [address] ECRCL 91.55 ml/min Normal [facility] Comment on above: Performed By: #### L 500.4050, L100.0100 ####[facility] [address] [place], [address] EST GFR - AA 83 mL/min Normal >60 [facility] Comment on above: Result Comment: Afri can Armenian GFR Calc Performed By: #### L 500.4050, L100.0100 ####[facility] [address] [place], [address] GAP 11 Normal 5-15 [facility] Comment on above: Performed By: #### L 500.4050, L100.0100 ####[facility] [address] [place], [address] GFR/1.73 sq M.predicted among non-blacks MDRD (S/P/Bld) [Vol rate/Area] 68 mL/min/{1.73_m2} Normal >60 [facility] Comment on above: Result Comment: Non- GFR Calc Performed By: #### L 500.4050, L100.0100 ####[facility] [address] [place], [address] Globulin (S) [Mass/Vol] 3.9 g/dL Normal 2.2-4.2 [facility] Comment on above: Performed By: #### L 500.4050, L100.0100 ####[facility] [address] [place], [address] Glucose [Mass/Vol] 131 mg/dL High 74-106 [facility] Comment on above: Result Comment: Fast ing Glucose result greater than or equal to 126 mg/dL suggests DIABETES MELLITUS per A.D.A. criteria. Performed By: #### L 500.4050, L100.0100 ####[facility] [address] [place], [address] Potassium [Moles/Vol] 3.8 mmol/L Normal 3.5-5.1 [facility] Comment on above: Performed By: #### L 500.4050, L100.0100 ####[facility] [address] [place], [address] Sodium [Moles/Vol] 138 mmol/L Normal 136-145 [facility] Comment on above: Performed By: #### L 500.4050, L100.0100 ####[facility] [address] [place], [address] T PROT 8.8 g/dL High 6.4-8.2 [facility] Comment on above: Performed By: #### L 500.4050, L100.0100 ####[facility] [address] [place], [address] Urea nitrogen [Mass/Vol] 13 mg/dL Normal 7-18 [facility] Comment on above: Performed By: #### L 500.4050, L100.0100 ####[facility] [address] [place], [address] Determination of erythrocyte mean corpuscular volume (MCV)Ordered By: Benny Stacy on 07-30-2023 MCV (RBC) [Entitic vol] 93.1 fL 80-94 [facility] Emergency Department Summary on 07-30-2023 Emergency Department Summary [facility] Medical Records Department [address] [place] [address] Emergency Department Summary 07/30/23 MR#: [id number] Acct: [id number] Name: MANAV REBOLLEDO Rep #: [id number] : 1995 28 From: Benny Stacy MD PCP: Care Physician,No Primary Status:REG ER Location: ED HPI HPI - GI History of Present Illness Chief Complaint: Abd Pain Detail of Chief Complaint: Associated with nausea, vomiting diarrhea per triage. Informant: patient and spouse/S.O. Abdominal Pain/Flank Pain Onset: Today Context: Sudden Onset Timing: Continuous (Pain is continuous. He has history of colitis and is seen by Dr. Marshall) Quality: Aching and Cramping Location: Diffuse Current Severity: Severe Maximum Severity: Severe Worsened by: Movement Relieved by: Nothing Nausea/Vomiting/Emesis GI Symptom: Positive for Nausea and Vomiting Onset: Today Quality: Negative for Nonbilious, Blood streaks, Coffee ground or Hematemesis Diarrhea/Melena/Hemato chezia GI Symptom: Positive for Diarrhea (1 or 2 mushy stools); Negative for Melena or Hematochezia Associated Symptoms Associated Symptoms: Negative for Dysuria, Frequency, Hematuria or Urgency Narrative Narrative: Patient is a 28-year-old male. He has history of gastritis, abdominal pain, nausea and vomiting. Review of prior records indicate he has history of cannabis use. He presents because of abdominal pain nausea vomiting diarrhea per significant other since he was not answering many questions. Significant other states this has happened in the past when he had a flare of his colitis. He is present on no medicine. His colitis is treated with diet. He has intolerance to dairy products. He his significant other denied history of lactulose intolerance or celiac sprue disease. Patient was scoped by Dr. Louie Lerma. Patient had evidence of gastritis. There is no evidence of ulcer. Furthermore Dr. Marshall's note was reviewed. He believes patient has irritable bowel syndrome. There is no mention of Crohn's disease or ulcerative colitis. He had a case of colitis noted on CAT scan June 2022. He has had numerous ER visits in the past 12 months with no known cause of his abdominal pain. Prior similar symptoms: Yes Recent Illness/Hospitalizatio n: No PFSH PFS Medical History Abdominal pain Depression Former smoker Nausea and vomiting Subclinical hypothyroidism Vitamin D deficiency Home Medications ondansetron 4 mg disintegrating tablet 4 mg PO TID PRN nausea and vomiting #21 tabs 03/31/23 [Rx Last Taken Unknown] escitalopram oxalate 20 mg tablet 20 mg PO DAILY 07/30/23 [History Last Taken Unknown] Allergy/AdvReac Type Severity Reaction Status Date / Time adhesive tape Allergy Rash Verified 07/30/23 01:19 ibuprofen [From Motrin] AdvReac Upset Verified 07/30/23 01:19 Stomach Family History Mother Asthma Surgical History History of appendectomy Social History household members: significant other Smoking Status: Never smoker alcohol intake: never substance use type: marijuana ROS ROS ED Constitutional Constitutional ED: Denies chills, fever(s), subjective, sweats or weight loss ENT ENT ED: Denies ear pain, rhinorrhea or sore throat Cardiovascular Cardiovascular: Denies chest pain, orthopnea, palpitations, paroxysmal nocturnal dyspnea or racing heartbeat Respiratory/Chest Respiratory/Chest: Denies cough, dyspnea, dyspnea on exertion, orthopnea or paroxysmal nocturnal dyspnea Gastrointestinal Gastrointestinal: Reports abdominal pain, diarrhea, nausea and vomiting; Denies constipation or melena Genitourinary Genitourinary ED: Denies dysuria, hematuria or urinary frequency Musculoskeletal Musculoskeletal: Denies arthralgias, back pain, myalgias or neck pain Integumentary Denies rash Endocrine Endocrinology: Denies polydipsia or polyphagia Hematologic/Lymphatic Hematologic/Lymphatic: Denies easy bleeding or easy bruising EXAM Physical Exam Const Vital Signs: 07/30/23 01:14 07/30/23 01:55 07/30/23 01:18 Temperature 99.6 F H 98 F Temperature Source Temporal Oral Pulse Rate 72 62 62 Respiratory Rate 18 15 17 Blood Pressure 126/113 H 159/76 H 152/89 H Blood Pressure Mean 117 103 110 Pulse Ox 98 100 97 Oxygen Delivery Method Room Air Room Air Room Air 07/30/23 03:04 07/30/23 02:18 07/30/23 03:00 Temperature 98.1 F 98 F Temperature Source Oral Oral Pulse Rate 62 51 L 48 L Respiratory Rate 17 16 16 Blood Pressure 148/89 H 148/89 H 162/95 H Blood Pressure Mean 108 108 117 Pulse Ox 100 100 100 Oxygen Delivery (more content not included)... Normal [facility] Erythrocyte distribution wid th ratioOrdered By: Benny Stacy on 07-30-2023 Erythrocyte distribution width (RBC) [Ratio] 12.9 % 11.6-14.6 [facility] Erythrocyte distribution wid th standard deviationOrdered By: Benny Stacy on 07-30-2023 Erythrocyte distribution width (RBC) [Entitic vol] 44.0 fL 35.1-43.9 [facility] Hematocrit Auto (Bld) [Volum e fraction]Ordered By: Bennykeenan Stacy on 07-30-2023 Hematocrit (Bld) [Volume fraction] 45.7 % 40-54 [facility] Immature granulocytes/100 WB C Auto (Bld)[facility] By[facility]23 Immature granulocytes/100 WBC (Bld) 0.700 % 0.0-0.9 [facility] Comment on above: IG% - Immature Granu locytes (promyelocytes, myelocytes and metamyelocytes) > 1% indicates that a LEFT SHIFT is Present. Laboratory - Chemistry and C hemistry - challengeOrdered By: [facility] on 07-30-2023 Albumin/Globulin [Mass ratio] 1.3 {ratio} 0.9-2.4 [facility] ALP [Catalytic activity/Vol] 66 U/L 45-117 [facility] ALT [Catalytic activity/Vol] 28 U/L 16-61 [facility] CO2 [Moles/Vol] 23.0 mmol/L 21.0-32.0 [facility] Globulin (S) [Mass/Vol] 3.9 g/dL 2.2-4.2 [facility] Urea nitrogen/Creatinine [Mass ratio] 9.9 mg/mg 10-20 [facility] Laboratory - Hematology and Cell countsOrdered By: [facility] on 07-30-2023 MCH (RBC) [Entitic mass] 31.4 pg 27.0-32.0 [facility] MCHC (RBC) [Mass/Vol] 33.7 g/dL 32-36 [facility] Nucleated RBC/100 WBC (Bld) [Ratio] 0 % 0-5 [facility] Platelet mean volume (Bld) [Entitic vol] 9.8 fL 6.2-12.0 [facility] Platelets (Bld) [#/Vol] 342 10*3/uL 150-450 [facility] Lactic Acidon 07-30-2023 Lactate [Moles/Vol] 1.9 mmol/L Normal 0.4-1.9 [facility] Comment on above: Order Comment: SANCHO Harman PREVIOUS SPECIMEN REJECTED DUE TOWRONG TUBE. 07/30/23216 Steven Cintron Hsu.Y Performed By: #### L 503.6005 ####[facility] [address] [place], [address] No Panel InformationOrdered By: Benny Stacy on 07-30-2023 Estimated Creatinine Clearance Calc 91.55 ml/min [facility] Estimated GFR (MDRD) Amer 83 mL/min >60 [facility] Comment on above: GFR Calc Estimated GFR (MDRD) Non-Af Amer 68 mL/min >60 [facility] Comment on above: Non- GFR Calc RBC Auto (Bld) [#/Vol]Ordere d By: Benny Stacy on 07-30-2023 RBC (Bld) [#/Vol] 4.91 10*6/uL 4.6-6.2 [facility] Serum or plasma calcium ruth urement (mass/volume)Ordered By: Benny Stacy on 07-30-2023 Calcium [Mass/Vol] 10.3 mg/dL 8.5-10.1 [facility] Serum or plasma creatinine m easurement (mass/volume)Ordered By: Benny Stacy on 07-30-2023 Creatinine [Mass/Vol] 1.31 mg/dL 0.70-1.30 [facility] Comment on above: The validity of the calculated GFR & GFRAA in patients over 70 years has not been determined. Clinical correlation is essential. Serum or plasma urea nitroge n measurement (mass/volume)Ordered By: Benny Stacy on 07-30-2023 Urea nitrogen [Mass/Vol] 13 mg/dL 11-28 [facility] Thin prep Papanicolaou smear with manual screeningOrdered By: Bennykeenan Stacy on 07-30-2023 Thin prep Papanicolaou smear with manual screening 4.9 g/dL 3.2-5.0 [facility] Thin prep Papanicolaou smear with manual screening 21 U/L 15-37 [facility] Thin prep Papanicolaou smear with manual screening 11 5-15 [facility] Urinalysis, Completeon 07-29 BACTERIA Normal None Seen [facility] Comment on above: Order Comment: COLLE CTOR TO SPECIFY Result Comment: LAKSHMI ENT DISCHARGED. NO URINE COLLECTED Performed By: #### L 400.0001 ####[facility] [address] [place], [address] BILIRUBIN URINE Normal Negative [facility] Comment on above: Order Comment: RAVINDER CTOR TO SPECIFY Result Comment: LAKSHMI ENT DISCHARGED. NO URINE COLLECTED Performed By: #### L 400.0001 ####[facility] [address] [place], [address] Clarity (U) Normal Clear [facility] Comment on above: Order Comment: RAVINDER CTOR TO SPECIFY Result Comment: LAKSHMI ENT DISCHARGED. NO URINE COLLECTED Performed By: #### L 400.0001 ####[facility] [address] [place], [address] Color (U) Normal Yellow [facility] Comment on above: Order Comment: RAVINDER CTOR TO SPECIFY Result Comment: LASKHMI ENT DISCHARGED. NO URINE COLLECTED Performed By: #### L 400.0001 ####[facility] [address] [place], [address] EPI,SQUAMOUS Normal 0-5 [facility] Comment on above: Order Comment: RAVINDER CTOR TO SPECIFY Result Comment: LAKSHMI ENT DISCHARGED. NO URINE COLLECTED Performed By: #### L 400.0001 ####[facility] [address] [place], [address] GLUCOSE, UR Normal Normal [facility] Comment on above: Order Comment: RAVINDER CTOR TO SPECIFY Result Comment: LAKSHMI ENT DISCHARGED. NO URINE COLLECTED Performed By: #### L 400.0001 ####[facility] [address] [place], [address] KETONE UR Normal Negative [facility] Comment on above: Order Comment: RAVINDER CTOR TO SPECIFY Result Comment: LAKSHMI ENT DISCHARGED. NO URINE COLLECTED Performed By: #### L 400.0001 ####[facility] [address] [place], [address] LEUK ESTERASE Normal Negative [facility] Comment on above: Order Comment: COLLE CTOR TO SPECIFY Result Comment: LAKSHMI ENT DISCHARGED. NO URINE COLLECTED Performed By: #### L 400.0001 ####[facility] [address] [place], [address] Mucus Ql (Urine sed) Normal [facility] Comment on above: Order Comment: COLLE CTOR TO SPECIFY Result Comment: LAKSHMI ENT DISCHARGED. NO URINE COLLECTED Performed By: #### L 400.0001 ####[facility] [address] [facility] [address] Nitrite Ql (U) Normal Negative [facility] Comment on above: Order Comment: COLLE CTOR TO SPECIFY Result Comment: LAKSHMI ENT DISCHARGED. NO URINE COLLECTED Performed By: #### L 400.0001 ####[facility] [address] [place] [id number] OCCULT BLOOD-UR Normal Negative [facility] Comment on above: Order Comment: COLLE CTOR TO SPECIFY Result Comment: LAKSHMI ENT DISCHARGED. NO URINE COLLECTED Performed By: #### L 400.0001 ####[facility] [address] [place] [id number] pH UR Normal 5.0 - 8.0 [facility] Comment on above: Order Comment: COLLE CTOR TO SPECIFY Result Comment: LAKSHMI ENT DISCHARGED. NO URINE COLLECTED Performed By: #### L 400.0001 ####[facility] [address] [place] [id number] PROT DIPSTX Normal Negative [facility] Comment on above: Order Comment: RAVINDER CTOR TO SPECIFY Result Comment: LAKSHMI ENT DISCHARGED. NO URINE COLLECTED Performed By: #### L 400.0001 ####[facility] [address] [place] [id number] RBC Normal 0-5 [facility] Comment on above: Order Comment: COLLE CTOR TO SPECIFY Result Comment: LAKSHMI ENT DISCHARGED. NO URINE COLLECTED Performed By: #### L 400.0001 ####[facility] [address] [place], [address] SP.GR. DIPSTX Normal 1.002-1.030 [facility] Comment on above: Order Comment: COLLE CTOR TO SPECIFY Result Comment: LAKSHMI ENT DISCHARGED. NO URINE COLLECTED Performed By: #### L 400.0001 ####[facility] [address] [place], [address] UR Preservative Normal [facility] Comment on above: Order Comment: COLLE CTOR TO SPECIFY Result Comment: LAKSHMI ENT DISCHARGED. NO URINE COLLECTED Performed By: #### L 400.0001 ####[facility] [address] [place], [address] UROBILI Normal Normal [facility] Comment on above: Order Comment: COLLE CTOR TO SPECIFY Result Comment: LAKSHMI ENT DISCHARGED. NO URINE COLLECTED Performed By: #### L 400.0001 ####[facility] [address] [place], [address] WBC Normal 0-5 [facility] Comment on above: Order Comment: COLLE CTOR TO SPECIFY Result Comment: LAKSHMI ENT DISCHARGED. NO URINE COLLECTED Performed By: #### L 400.0001 ####[facility] [address] [place], [address] Emergency Department Summary on 04-01-2023 Emergency Department Summary [facility] Medical Records [facility] [address] [place] [address] Emergency Department Summary 04/01/23 MR#: [id number] Acct: [id number] Name: MANAV REBOLLEDO Rep #: [id number] : 1995 27 From: Shilo Olmedo DO PCP: Dr. Mikayla Gill MD Status:REG ER Location: ED HPI HPI - GI History of Present Illness Chief Complaint: Abd Pain Narrative Narrative: 27-year-old male with history of gastritis, GERD, cyclic vomiting syndrome, avoid use presenting with nausea/vomiting/epigas tric pain. Patient states that he was here the day before yesterday overnight after eating some fried chicken which is known to cause him symptoms of gastritis. He was given Pepcid and Zofran and started to feel better. Last evening his took his significant other to sheets for robledo cheddar cheese biscuits and this did him to eat 2 of these himself and now he has nausea and vomiting again. He states that these would be known to cause the symptoms. He did Zofran which is dissolvable but still vomited. He is still having epigastric pain. Denies fevers or chills. [facility] Medical History Abdominal pain Depression Former smoker Nausea and vomiting Subclinical hypothyroidism Vitamin D deficiency Home Medications ondansetron 4 mg disintegrating tablet 4 mg PO TID PRN nausea and vomiting #21 tabs 03/31/23 [Rx Last Taken Unknown] Allergy/AdvReac Type Severity Reaction Status Date / Time adhesive tape Allergy Rash Verified 03/30/23 23:34 ibuprofen [From Motrin] AdvReac Upset Verified 03/30/23 23:34 Stomach Family History Mother Asthma Surgical History History of appendectomy Social History household members: significant other Smoking Status: Current every day smoker tobacco type: cigarettes alcohol intake: never substance use type: marijuana ROS ROS ED Constitutional Constitutional ED: Denies chills, fever(s) or sweats Eyes Eyes: Denies blurry vision or change in vision ENT ENT ED: Denies ear pain or sore throat Cardiovascular Cardiovascular: Denies chest pain, palpitations or racing heartbeat Respiratory/Chest Respiratory/Chest: Denies cough, dyspnea or sputum Gastrointestinal Gastrointestinal: Reports abdominal pain, nausea and vomiting; Denies constipation or diarrhea Genitourinary Genitourinary ED: Denies dysuria, hematuria or urinary frequency Musculoskeletal Musculoskeletal: Denies arthralgias, myalgias or neck pain Integumentary Denies abscess, Abrasions or rash Neurologic Neurologic: Denies headache(s), paresthesias or weakness Psychiatric Psychiatric: Denies anxiety, depression, suicidal ideation or suicidal thoughts Endocrine Endocrinology: Denies polydipsia or polyuria EXAM Physical Exam Const Vital Signs: 04/01/23 07:08 Temperature 97.4 F L Temperature Source Temporal Pulse Rate 73 Respiratory Rate 20 H Blood Pressure 169/139 H Blood Pressure Mean 149 Pulse Ox 100 Oxygen Delivery Method Room Air Positive well nourished General Appearance ED: NAD HEENT Reports moist mucous membranes normocephalic and atraumatic Eyes PERRL and EOMs intact bilaterally Resp normal respiratory effort Cardio regular rate and regular rhythm GI GI Narrative: Epigastric tenderness Neuro CN's II-XII intact bilaterally Sensorium / Orientation: alert, oriented to person, oriented to place and oriented to time Psych mental status grossly normal MDM MDM MDM Narrative Medical decision making narrative: Patient with symptoms of gastritis/GERD. Patient had lab work chest 2 days ago. I do not believe he needs repeat lab work. He and his significant other are in agreement. He does want symptomatic control he is given IM Phenergan and will be followed by GI cocktail. Rate 22. Nursing states to me that the patient declines a GI cocktail. He is sleeping after getting Phenergan. He has not had any episodes of emesis. She continued to complain of nausea so an IV was established and he was given Reglan and Benadryl and he has not had any further episodes of vomiting however on reevaluation at 9:38 AM the patient states he still nauseous and request some IV Pepcid. This was provided. 10:22 AM the patient came out of the room demanding to be discharged home immediately. He stated to nursing staff that he wants to go home and take a shower. He has antiemetics at home. He was again counseled to watch his diet as this seems to be the trigger for his emesis/abdominal pain. Discharged in stable condition. Impression: 1 nausea/vomiting 2. Abdominal pain Lab Data Attest (more content not included)... Normal [facility] Absolute lymphocyte countOrd ered By: Roney Paul on 03-31-2023 Lymphocytes Auto (Unsp spec) [#/Vol] 0.96 10*3/uL 0.83-4.51 [facility] Basic Metabolic Profile (BMP )on 03-31-2023 BUN/CRE 11.9 RATIO Normal 03-02 [facility] Comment on above: Performed By: #### L 501.2450, L500.3400, L100.0100, L500.2500 #### [facility] [address] [place], [address] CA,Total 10.2 mg/dL High 8.5-10.1 [facility] Comment on above: Performed By: #### L 501.2450, L500.3400, L100.0100, L500.2500 #### [facility] [address] [place], [address] Chloride [Moles/Vol] 108 mmol/L High 98-107 [facility] Comment on above: Performed By: #### L 501.2450, L500.3400, L100.0100, L500.2500 #### [facility] [address] [place], [address] CO2 [Moles/Vol] 25.0 mmol/L Normal 21.0-32.0 [facility] Comment on above: Performed By: #### L 501.2450, L500.3400, L100.0100, L500.2500 #### [facility] [address] [place], [address] Creatinine [Mass/Vol] 1.26 mg/dL Normal 0.70-1.30 [facility] Comment on above: Result Comment: The validity of the calculated GFR GFRAA in patients over 70 years has not been determined. Clinical correlation is essential. Performed By: #### L 501.2450, L500.3400, L100.0100, L500.2500 #### [facility] [address] [place], [address] ECRCL 86.50 ml/min Normal [facility] Comment on above: Performed By: #### L 501.2450, L500.3400, L100.0100, L500.2500 #### [facility] [address] [place], [address] EST GFR - AA 87 mL/min Normal >60 [facility] Comment on above: Result Comment: Afri can Armenian GFR Calc Performed By: #### L 501.2450, L500.3400, L100.0100, L500.2500 #### [facility] [address] [place], [address] GAP 6 Normal 5-15 [facility] Comment on above: Performed By: #### L 501.2450, L500.3400, L100.0100, L500.2500 #### [facility] [address] [place], [address] GFR/1.73 sq M.predicted among non-blacks MDRD (S/P/Bld) [Vol rate/Area] 72 mL/min/{1.73_m2} Normal >60 [facility] Comment on above: Result Comment: Non- GFR Calc Performed By: #### L 501.2450, L500.3400, L100.0100, L500.2500 #### [facility] [address] [place], [address] Glucose [Mass/Vol] 143 mg/dL High 74-106 [facility] Comment on above: Result Comment: Fast ing Glucose result greater than or equal to 126 mg/dL suggests DIABETES MELLITUS per A.D.A. criteria. Performed By: #### L 501.2450, L500.3400, L100.0100, L500.2500 #### [facility] [address] [place], [address] Potassium [Moles/Vol] 3.9 mmol/L Normal 3.5-5.1 [facility] Comment on above: Performed By: #### L 501.2450, L500.3400, L100.0100, L500.2500 #### [facility] [address] [place], [address] Sodium [Moles/Vol] 139 mmol/L Normal 136-145 [facility] Comment on above: Performed By: #### L 501.2450, L500.3400, L100.0100, L500.2500 #### [facility] [address] [place], [address] Urea nitrogen [Mass/Vol] 15 mg/dL Normal 7-18 [facility] Comment on above: Performed By: #### L 501.2450, L500.3400, L100.0100, L500.2500 #### [facility] [address] [place], [address] Basophil percentageOrdered B y: Roney Paul on 03-31-2023 Basophils/100 WBC (Bld) 0.2 % 0-1 [facility] Bilirubin [Mass/Vol] 0.40 mg/dL 0.20-1.00 [facility] Comment on above: For patients on eltr ombopag therapy, use of Dimension Stringer TBIL is not recommended. Chloride [Moles/Vol] 108 mmol/L 98-107 [facility] Eosinophils/100 WBC (Bld) 0.0 % 0-5 [facility] Glucose [Mass/Vol] 143 mg/dL 74-106 [facility] Comment on above: Fasting Glucose resu lt greater than or equal to 126 mg/dL suggests DIABETES MELLITUS per A.D.A. criteria. Neutrophils (Bld) [#/Vol] 10.5 10*3/uL 2.0-7.7 [facility] Neutrophils/100 WBC (Bld) 86.6 % 47-70 [facility] Potassium [Moles/Vol] 3.9 mmol/L 3.5-5.1 [facility] Protein [Mass/Vol] 8.6 g/dL 6.4-8.2 [facility] Sodium [Moles/Vol] 139 mmol/L 136-145 [facility] WBC (Bld) [#/Vol] 12.1 10*3/uL 4.4-11.0 [facility] Blood erythrocytes count (nu mber/volume)Ordered By: Roney Paul on 03-31-2023 RBC (Bld) [#/Vol] 4.86 10*6/uL 4.6-6.2 [facility] Blood hemoglobin measurement (mass/volume)Ordered By: Roney Paul on 03-31-2023 Hemoglobin (Bld) [Mass/Vol] 15.2 g/dL 13.0-16.5 [facility] Blood lymphocytes/100 leukoc ytesOrdered By: Roney Paul on 03-31-2023 Lymphocytes/100 WBC (Bld) 8.0 % 19-41 [facility] Blood monocytes/100 leukocyt esOrdered By: Roney Paul on 03-31-2023 Monocytes/100 WBC (Bld) 4.6 % 0-10 [facility] Blood platelet mean volumeOr dered By: Roney Paul on 03-31-2023 Platelet mean volume (Bld) [Entitic vol] 9.9 fL 6.2-12.0 [facility] CBC W/Diff, Automatedon 03-14 Absolute Lymph 0.96 X10 3/uL Normal 0.83-4.51 [facility] Comment on above: Performed By: #### L 501.2450, L500.3400, L100.0100, L500.2500 #### [facility] [address] [place], [address] Absolute Neut 10.5 X10 3/uL High 2.0-7.7 [facility] Comment on above: Performed By: #### L 501.2450, L500.3400, L100.0100, L500.2500 #### [facility] [address] [place], [address] Basophils/100 WBC (Bld) 0.2 % Normal 0-1 [facility] Comment on above: Performed By: #### L 501.2450, L500.3400, L100.0100, L500.2500 #### [facility] [address] [place], [address] Eosinophils/100 WBC (Bld) 0.0 % Normal 0-5 [facility] Comment on above: Performed By: #### L 501.2450, L500.3400, L100.0100, L500.2500 #### [facility] [address] [place], [address] Erythrocyte distribution width (RBC) [Ratio] 12.6 % Normal 11.6-14.6 [facility] Comment on above: Performed By: #### L 501.2450, L500.3400, L100.0100, L500.2500 #### [facility] [address] [place], [address] Hematocrit (Bld) [Volume fraction] 44.8 % Normal 40-54 [facility] Comment on above: Performed By: #### L 501.2450, L500.3400, L100.0100, L500.2500 #### [facility] [address] [place], [address] Hemoglobin (Bld) [Mass/Vol] 15.2 g/dL Normal 13.0-16.5 [facility] Comment on above: Performed By: #### L 501.2450, L500.3400, L100.0100, L500.2500 #### [facility] [address] [place], [address] IG% 0.600 Normal 0.0-0.9 [facility] Comment on above: Result Comment: IG% - Immature Granulocytes (promyelocytes, myelocytes and metamyelocytes) > 1% indicates that a LEFT SHIFT is Present. Performed By: #### L 501.2450, L500.3400, L100.0100, L500.2500 #### [facility] [address] [place], [address] Lymphocytes/100 WBC (Bld) 8.0 % Low 19-41 [facility] Comment on above: Performed By: #### L 501.2450, L500.3400, L100.0100, L500.2500 #### [facility] [address] [place], [address] MCH (RBC) [Entitic mass] 31.3 pg Normal 27.0-32.0 [facility] Comment on above: Performed By: #### L 501.2450, L500.3400, L100.0100, L500.2500 #### [facility] [address] [place], [address] MCHC (RBC) [Mass/Vol] 33.9 g/dL Normal 32-36 [facility] Comment on above: Performed By: #### L 501.2450, L500.3400, L100.0100, L500.2500 #### [facility] [address] [place], [address] MCV (RBC) [Entitic vol] 92.2 fL Normal 80-94 [facility] Comment on above: Performed By: #### L 501.2450, L500.3400, L100.0100, L500.2500 #### [facility] [address] [place], [address] Monocytes/100 WBC (Bld) 4.6 % Normal 0-10 [facility] Comment on above: Performed By: #### L 501.2450, L500.3400, L100.0100, L500.2500 #### [facility] [address] [place], [address] Neutrophils/100 WBC (Bld) 86.6 % High 47-70 [facility] Comment on above: Performed By: #### L 501.2450, L500.3400, L100.0100, L500.2500 #### [facility] [address] [place], [address] Nucleated RBC (Bld) [#/Vol] 0 10*3/uL Normal 0-5 [facility] Comment on above: Performed By: #### L 501.2450, L500.3400, L100.0100, L500.2500 #### [facility] [address] [place], [address] Platelet mean volume (Bld) [Entitic vol] 9.9 fL Normal 6.2-12.0 [facility] Comment on above: Performed By: #### L 501.2450, L500.3400, L100.0100, L500.2500 #### [facility] [address] [place], [address] Platelets (Bld) [#/Vol] 307 10*3/uL Normal 150-450 [facility] Comment on above: Performed By: #### L 501.2450, L500.3400, L100.0100, L500.2500 #### [facility] [address] [place], [address] RBC (Bld) [#/Vol] 4.86 10*6/uL Normal 4.6-6.2 [facility] Comment on above: Performed By: #### L 501.2450, L500.3400, L100.0100, L500.2500 #### [facility] [address] [place], [address] RDW SD 43.3 fl Normal 35.1-43.9 [facility] Comment on above: Performed By: #### L 501.2450, L500.3400, L100.0100, L500.2500 #### [facility] [address] [place], [address] WBC (Bld) [#/Vol] 12.1 10*3/uL High 4.4-11.0 [facility] Comment on above: Performed By: #### L 501.2450, L500.3400, L100.0100, L500.2500 #### [facility] [address] [place], [address] Determination of erythrocyte mean corpuscular volume (MCV)Ordered By: Roney Paul on 03-31-2023 MCV (RBC) [Entitic vol] 92.2 fL 80-94 [facility] Direct bilirubinOrdered By: Roney Paul on 03-31-2023 Bilirubin.direct [Mass/Vol] 0.12 mg/dL 0.00-0.30 [facility] Emergency Department Summary on 03-31-2023 Emergency Department Summary [facility] Medical Records Department [address] [place] [address] Emergency Department Summary 03/31/23 MR#: [id number] Acct: [id number] Name: MANAV REBOLLEDO Rep #: [id number] : 1995 27 From: Roney Paul DO PCP: Dr. Mikayla Gill MD Status:REG ER Location: ED HPI History of Present Illness Chief Complaint: Nausea/Vomiting Informant: patient Narrative Narrative: Patient is a 27-year-old male with past medical history of recurrent abdominal pain as well as THC use and cyclic vomiting syndrome. He states multiple people have been sick at work and over the last 24 hours he has had generalized abdominal discomfort with bouts of nausea and vomiting. He states he has not been able to keep any food or fluid down and has concern for dehydration and therefore comes in for evaluation. [facility] Medical History Abdominal pain Depression Former smoker Nausea and vomiting Subclinical hypothyroidism Vitamin D deficiency Home Medications famotidine 20 mg tablet 20 mg PO BID #28 TABLETS 06/10/22 [Rx Last Taken Unknown] ondansetron HCl 4 mg tablet 4 mg PO Q6H PRN nausea and vomiting #20 tabs 06/10/22 [Rx Last Taken Unknown] ondansetron 4 mg disintegrating tablet 4 mg PO TID PRN nausea and vomiting #21 tabs 03/31/23 [Rx Last Taken Unknown] Allergy/AdvReac Type Severity Reaction Status Date / Time adhesive tape Allergy Rash Verified 03/30/23 23:34 ibuprofen [From Motrin] AdvReac Upset Verified 03/30/23 23:34 Stomach Family History Mother Asthma Surgical History History of appendectomy Social History household members: significant other Smoking Status: Current every day smoker tobacco type: cigarettes alcohol intake: never substance use type: marijuana ROS ROS ED Constitutional Constitutional ED: Denies chills or fever(s) ENT ENT ED: Reports rhinorrhea; Denies sore throat Cardiovascular Cardiovascular: Denies chest pain Respiratory/Chest Respiratory/Chest: Denies cough or dyspnea Gastrointestinal Gastrointestinal: Reports abdominal pain, nausea and vomiting; Denies diarrhea Genitourinary Genitourinary ED: Denies dysuria Musculoskeletal Musculoskeletal: Reports myalgias Integumentary Denies rash Neurologic Neurologic: Denies headache(s) Hematologic/Lymphatic Hematologic/Lymphatic: Denies easy bleeding or easy bruising EXAM Physical Exam Const Vital Signs: 03/30/23 23:32 Temperature 98 F Temperature Source Temporal Pulse Rate 100 Respiratory Rate 16 Blood Pressure 154/81 H Blood Pressure Mean 105 Pulse Ox 99 Oxygen Delivery Method Room Air Positive well nourished and well developed General Appearance ED: well developed HEENT HEENT Narrative: Mucous membranes are slightly dry and tacky No dried blood or active bleeding noted in the posterior pharynx No secondary changes to suggest infection Eyes PERRL and EOMs intact bilaterally General Eye ED: Negative for scleral icterus Neck supple Resp normal respiratory effort and clear to auscultation bilaterally Cardio regular rate and regular rhythm Rate: other Other Details: Radial and carotid pulses are equal and symmetric GI non-distended GI Narrative: Abdomen is soft and nondistended with hyperactive bowel sounds. There is mild diffuse pain with palpation without voluntary guarding or rigidity No pulsatile mass or fluid wave Auscultation: hyperactive bowel sounds Palpation: soft Extremity normal to inspection Neuro oriented x3, CN's II-XII intact bilaterally and no sensory deficits noted Sensorium / Orientation: alert Motor Exam: strength 5/5 throughout Psych mental status grossly normal Skin no rashes or lesions noted Skin Narrative: Skin turgor is slightly increased General Skin Exam: Negative for jaundice MDM MDM MDM Narrative Medical decision making narrative: Patient presented to the ER slightly hypertensive but otherwise with stable vitals. Differential diagnosis for his report of abdominal pain with nausea and vomiting is viral stomach infection versus biliary colic versus pancreatitis versus gastritis versus colitis there is also concern for electrolyte derangement acute kidney injury. Basic blood work was obtained which reveals slight leukocytosis but otherwise no signs of acute kidney injury or severe electrolyte derangement. Patient was given IV fluids as well as Haldol Benadryl and Pepcid and on reevaluation reports feeling better and has had no further bouts of vomiting in the ER. On repeat evaluation his abdomen remains soft and nonsurgical. Therefore at (more content not included)... Normal [facility] Hematocrit Auto (Bld) [Volum e fraction]Ordered By: Roney Paul on 03-31-2023 Hematocrit (Bld) [Volume fraction] 44.8 % 40-54 [facility] - Chemistry and C hemistry - challengeOrdered By: Roney Paul on 03-31-2023 ALP [Catalytic activity/Vol] 67 U/L 45-117 [facility] ALT [Catalytic activity/Vol] 28 U/L 16-61 [facility] CO2 [Moles/Vol] 25.0 mmol/L 21.0-32.0 [facility] Globulin (S) [Mass/Vol] 4.0 g/dL 2.2-4.2 [facility] Lipase [Catalytic activity/Vol] 27 U/L 13-75 [facility] Comment on above: Please note:LIPASE r evised reference range effective 22. New Lipase methodology. Expected to produce lower values than the previous assay method. NEW Reference Range: 13 - 75 U/L Urea nitrogen/Creatinine [Mass ratio] 11.9 mg/mg 10-20 [facility] - Hematology and Cell countsOrdered By: Roney Paul on 03-31-2023 Erythrocyte distribution width (RBC) [Entitic vol] 43.3 fL 35.1-43.9 [facility] Erythrocyte distribution width (RBC) [Ratio] 12.6 % 11.6-14.6 [facility] Immature granulocytes/100 WBC (Bld) 0.600 % 0.0-0.9 [facility] Comment on above: IG% - Immature Granu locytes (promyelocytes, myelocytes and metamyelocytes) > 1% indicates that a LEFT SHIFT is Present. MCH (RBC) [Entitic mass] 31.3 pg 27.0-32.0 [facility] Nucleated RBC/100 WBC (Bld) [Ratio] 0 % 0-5 [facility] Lipaseon 03-31-2023 Lipase [Catalytic activity/Vol] 27 U/L Normal 13-75 [facility] Comment on above: Result Comment: Ryland nicole note: LIPASE revised reference range effective 22. New Lipase methodology. Expected to produce lower values than the previous assay method. NEW Reference Range: 13 - 75 U/L Performed By: #### L 501.2450, L500.3400, L100.0100, L500.2500 #### [facility] [address] [place], [address] Liver Profileon 03-31-2023 Albumin [Mass/Vol] 4.6 g/dL Normal 3.2-5.0 [facility] Comment on above: Performed By: #### L 501.2450, L500.3400, L100.0100, L500.2500 #### [facility] [address] [place], [address] ALK P 67 U/L Normal 45-117 [facility] Comment on above: Performed By: #### L 501.2450, L500.3400, L100.0100, L500.2500 #### [facility] [address] [place], [address] ALT [Catalytic activity/Vol] 28 U/L Normal 16-61 [facility] Comment on above: Performed By: #### L 501.2450, L500.3400, L100.0100, L500.2500 #### [facility] [address] [place], [address] AST [Catalytic activity/Vol] 17 U/L Normal 15-37 [facility] Comment on above: Performed By: #### L 501.2450, L500.3400, L100.0100, L500.2500 #### [facility] [address] [place], [address] Bilirubin [Mass/Vol] 0.40 mg/dL Normal 0.20-1.00 [facility] Comment on above: Result Comment: For patients on eltrombopag therapy, use of Dimension Stringer TBIL is not recommended. Performed By: #### L 501.2450, L500.3400, L100.0100, L500.2500 #### [facility] [address] [place], [address] Bilirubin.direct [Mass/Vol] 0.12 mg/dL Normal 0.00-0.30 [facility] Comment on above: Performed By: #### L 501.2450, L500.3400, L100.0100, L500.2500 #### [facility] [address] [place], [address] Globulin (S) [Mass/Vol] 4.0 g/dL Normal 2.2-4.2 [facility] Comment on above: Performed By: #### L 501.2450, L500.3400, L100.0100, L500.2500 #### [facility] [address] [place], [address] T PROT 8.6 g/dL High 6.4-8.2 [facility] Comment on above: Performed By: #### L 501.2450, L500.3400, L100.0100, L500.2500 #### [facility] [address] [place], [address] MCHC Auto (RBC) [Mass/Vol]Or dered By: Roney Paul on 03-31-2023 MCHC (RBC) [Mass/Vol] 33.9 g/dL 32-36 [facility] No Panel InformationOrdered By: Roney Paul on 03-31-2023 Estimated Creatinine Clearance Calc 86.50 ml/min [facility] Estimated GFR (MDRD) Amer 87 mL/min >60 [facility] Comment on above: GFR Calc Estimated GFR (MDRD) Non-Af Amer 72 mL/min >60 [facility] Comment on above: Non- GFR Calc Platelets bldOrdered By: Lius F Paul on 03-31-2023 Platelets (Bld) [#/Vol] 307 10*3/uL 150-450 [facility] Serum or plasma albumin ruth urement (mass/volume)Ordered By: Roney Paul on 03-31-2023 Albumin [Mass/Vol] 4.6 g/dL 3.2-5.0 [facility] Serum or plasma calcium ruth urement (mass/volume)Ordered By: Roney Paul on 03-31-2023 Calcium [Mass/Vol] 10.2 mg/dL 8.5-10.1 [facility] Serum or plasma creatinine m easurement (mass/volume)Ordered By: Roney Paul on 03-31-2023 Creatinine [Mass/Vol] 1.26 mg/dL 0.70-1.30 [facility] Comment on above: The validity of the calculated GFR & GFRAA in patients over 70 years has not been determined. Clinical correlation is essential. Serum or plasma urea nitroge n measurement (mass/volume)Ordered By: Roney Paul on 03-31-2023 Urea nitrogen [Mass/Vol] 15 mg/dL 7-18 [facility] Thin prep Papanicolaou smear with manual screeningOrdered By: Roney Paul on 03-31-2023 Thin prep Papanicolaou smear with manual screening 17 U/L 15-37 [facility] Thin prep Papanicolaou smear with manual screening 6 5-15 [facility] Center Abdomen Single View (Portabl e)on 09-18-2022 Abdomen Single View (Portable) [facility] Imaging Services [address] [place] [address] Abdomen Single View (Portable) MR#: [id number] Acct: [id number] Name: MANAV REBOLLEDO Rep #: [id number] : 1995 M 27 From: Darrian tovar MD PCP: Dr. Mikayla Gill MD Status: REG ER Study: Abdomen Single View (Portable) Date of Exam: 0 09/18/22 Exam# [id number] Ordering Dr: Benny Stacy MD STUDY: X-RAY - ABDOMEN/PELVIS REASON FOR EXAM: Male, 27 years old. NG Insertion TECHNIQUE: Single AP view of the abdomen / pelvis. COMPARISON: None. FINDINGS: Nasogastric tube is seen. The distal tip is in the body of the stomach. Normal visualized lung bases. There is a moderate amount of colonic fecal material. The visualized liver, spleen and kidneys are grossly normal in size and morphology. Normal soft tissue structures. Normal visualized osseous structures. RAD/Abdomen Single View (Portable) IMPRESSION: The distal tip of the nasogastric tube is in the body of the stomach. Electronically Signed: Darrian Jacobsen MD at 15:39 EDT , CC: Dr. Mikayla Gill MD; Dr. Benny Stacy MD Meat Stringer: Signed Normal [facility] Absolute lymphocyte countOrd ered By: Dr. Stacy on 09-18-2022 Lymphocytes Auto (Unsp spec) [#/Vol] 1.18 10*3/uL 0.83-4.51 [facility] Basophil percentageOrdered B y: Dr. Stacy on 09-18-2022 Basophils/100 WBC (Bld) 0.4 % 0-1 [facility] Bilirubin [Mass/Vol] 0.60 mg/dL 0.20-1.00 [facility] Comment on above: For patients on eltr ombopag therapy, use of Dimension Stringer TBIL is not recommended. Chloride [Moles/Vol] 107 mmol/L 98-107 [facility] Eosinophils/100 WBC (Bld) 0.1 % 0-5 [facility] Glucose [Mass/Vol] 117 mg/dL 74-106 [facility] Comment on above: Fasting Glucose resu lt from 100 to 125 mg/dL suggests IMPAIRED HOMEOSTASIS per A.D.A. criteria. Neutrophils (Bld) [#/Vol] 10.3 10*3/uL 2.0-7.7 [facility] Neutrophils/100 WBC (Bld) 84.6 % 47-70 [facility] Potassium [Moles/Vol] 3.7 mmol/L 3.5-5.1 [facility] Protein [Mass/Vol] 7.7 g/dL 6.4-8.2 [facility] Sodium [Moles/Vol] 140 mmol/L 136-145 [facility] WBC (Bld) [#/Vol] 12.2 10*3/uL 4.4-11.0 [facility] Bedside Glucoseon 09-18-2022 FINGERSTICK GLU 129 mg/dL High 74-106 [facility] Comment on above: Result Comment: TEJ ROQUE OF PATIENT CARE PER NURSING PROTOCOL Performed By: #### L 501.080 #### [facility] [address] [place] [address]. [place], [address] Blood erythrocytes count (nu mber/volume)Ordered By: Dr. Stacy on 09-18-2022 RBC (Bld) [#/Vol] 4.73 10*6/uL 4.6-6.2 [facility] Blood hemoglobin measurement (mass/volume)Ordered By: Dr. Stacy on 09-18-2022 Hemoglobin (Bld) [Mass/Vol] 15.0 g/dL 13.0-16.5 [facility] Blood lymphocytes/100 leukoc ytesOrdered By: Dr. Stacy on 09-18-2022 Lymphocytes/100 WBC (Bld) 9.6 % 19-41 [facility] Blood monocytes/100 leukocyt esOrdered By: Dr. Stacy on 09-18-2022 Monocytes/100 WBC (Bld) 5.1 % 0-10 [facility] Blood platelet mean volumeOr dered By: Dr. Stacy on 09-18-2022 Platelet mean volume (Bld) [Entitic vol] 9.7 fL 6.2-12.0 [facility] CBC W/Diff, Automatedon Absolute Lymph 1.18 X10 3/uL Normal 0.83-4.51 [facility] Comment on above: Performed By: #### L 100.0100, L500.4050, L501.2450 #### [facility] [address] [place], [address] Absolute Neut 10.3 X10 3/uL High 2.0-7.7 [facility] Comment on above: Performed By: #### L 100.0100, L500.4050, L501.2450 #### [facility] [address] [place], [address] Basophils/100 WBC (Bld) 0.4 % Normal 0-1 [facility] Comment on above: Performed By: #### L 100.0100, L500.4050, L501.2450 #### [facility] [address] [place], [address] Eosinophils/100 WBC (Bld) 0.1 % Normal 0-5 [facility] Comment on above: Performed By: #### L 100.0100, L500.4050, L501.2450 #### [facility] [address] [place], [address] Erythrocyte distribution width (RBC) [Ratio] 12.3 % Normal 11.6-14.6 [facility] Comment on above: Performed By: #### L 100.0100, L500.4050, L501.2450 #### [facility] [address] [place], [address] Hematocrit (Bld) [Volume fraction] 43.0 % Normal 40-54 [facility] Comment on above: Performed By: #### L 100.0100, L500.4050, L501.2450 #### [facility] [address] [place], [address] Hemoglobin (Bld) [Mass/Vol] 15.0 g/dL Normal 13.0-16.5 [facility] Comment on above: Performed By: #### L 100.0100, L500.4050, L501.2450 #### [facility] [address] [place], [address] IG% 0.200 Normal 0.0-0.9 [facility] Comment on above: Result Comment: IG% - Immature Granulocytes (promyelocytes, myelocytes and metamyelocytes) > 1% indicates that a LEFT SHIFT is Present. Performed By: #### L 100.0100, L500.4050, L501.2450 #### [facility] [address] [place], [address] Lymphocytes/100 WBC (Bld) 9.6 % Low 19-41 [facility] Comment on above: Performed By: #### L 100.0100, L500.4050, L501.2450 #### [facility] [address] [place], [address] MCH (RBC) [Entitic mass] 31.7 pg Normal 27.0-32.0 [facility] Comment on above: Performed By: #### L 100.0100, L500.4050, L501.2450 #### [facility] [address] [place], [address] MCHC (RBC) [Mass/Vol] 34.9 g/dL Normal 32-36 [facility] Comment on above: Performed By: #### L 100.0100, L500.4050, L501.2450 #### [facility] [address] [place], [address] MCV (RBC) [Entitic vol] 90.9 fL Normal 80-94 [facility] Comment on above: Performed By: #### L 100.0100, L500.4050, L501.2450 #### [facility] [address] [place], [address] Monocytes/100 WBC (Bld) 5.1 % Normal 0-10 [facility] Comment on above: Performed By: #### L 100.0100, L500.4050, L501.2450 #### [facility] [address] [place], [address] Neutrophils/100 WBC (Bld) 84.6 % High 47-70 [facility] Comment on above: Performed By: #### L 100.0100, L500.4050, L501.2450 #### [facility] [address] [place], [address] Nucleated RBC (Bld) [#/Vol] 0 10*3/uL Normal 0-5 [facility] Comment on above: Performed By: #### L 100.0100, L500.4050, L501.2450 #### [facility] [address] [place], [address] Platelet mean volume (Bld) [Entitic vol] 9.7 fL Normal 6.2-12.0 [facility] Comment on above: Performed By: #### L 100.0100, L500.4050, L501.2450 #### [facility] [address] [place], [address] Platelets (Bld) [#/Vol] 321 10*3/uL Normal 150-450 [facility] Comment on above: Performed By: #### L 100.0100, L500.4050, L501.2450 #### [facility] [address] [place], [address] RBC (Bld) [#/Vol] 4.73 10*6/uL Normal 4.6-6.2 [facility] Comment on above: Performed By: #### L 100.0100, L500.4050, L501.2450 #### [facility] [address] [place], [address] RDW SD 41.7 fl Normal 35.1-43.9 [facility] Comment on above: Performed By: #### L 100.0100, L500.4050, L501.2450 #### [facility] [address] [place], [address] WBC (Bld) [#/Vol] 12.2 10*3/uL High 4.4-11.0 [facility] Comment on above: Performed By: #### L 100.0100, L500.4050, L501.2450 #### [facility] [address] [place], [address] Comprehensive Metabolic Prof ilon 09-18-2022 Albumin [Mass/Vol] 4.4 g/dL Normal 3.2-5.0 [facility] Comment on above: Performed By: #### L 100.0100, L500.4050, L501.2450 ####[facility] [address] [place], [address] Albumin/Globulin [Mass ratio] 1.3 {ratio} Normal 0.9-2.4 [facility] Comment on above: Performed By: #### L 100.0100, L500.4050, L501.2450 ####[facility] [address] [place], [address] ALK P 72 U/L Normal 45-117 [facility] Comment on above: Performed By: #### L 100.0100, L500.4050, L501.2450 ####[facility] [address] [place], [address] ALT [Catalytic activity/Vol] 33 U/L Normal 16-61 [facility] Comment on above: Performed By: #### L 100.0100, L500.4050, L501.2450 ####[facility] [address] [place], [address] AST [Catalytic activity/Vol] 22 U/L Normal 15-37 [facility] Comment on above: Performed By: #### L 100.0100, L500.4050, L501.2450 ####[facility] [address] [place], [address] Bilirubin [Mass/Vol] 0.60 mg/dL Normal 0.20-1.00 [facility] Comment on above: Result Comment: For patients on eltrombopag therapy, use of Dimension Stringer TBIL is not recommended. Performed By: #### L 100.0100, L500.4050, L501.2450 ####[facility] [address] [place], [address] BUN/CRE 7.3 RATIO Low 10-20 [facility] Comment on above: Performed By: #### L 100.0100, L500.4050, L501.2450 ####[facility] [address] [place], [address] CA,Total 10.1 mg/dL Normal 8.5-10.1 [facility] Comment on above: Performed By: #### L 100.0100, L500.4050, L501.2450 ####[facility] [address] [place], [address] Chloride [Moles/Vol] 107 mmol/L Normal 98-107 [facility] Comment on above: Performed By: #### L 100.0100, L500.4050, L501.2450 ####[facility] [address] [place], [address] CO2 [Moles/Vol] 24.0 mmol/L Normal 21.0-32.0 [facility] Comment on above: Performed By: #### L 100.0100, L500.4050, L501.2450 ####[facility] [address] [place], [address] Creatinine [Mass/Vol] 1.10 mg/dL Normal 0.70-1.30 [facility] Comment on above: Result Comment: The validity of the calculated GFR GFRAA in patients over 70 years has not been determined. Clinical correlation is essential. Performed By: #### L 100.0100, L500.4050, L501.2450 ####[facility] [address] [place], [address] ECRCL 99.09 ml/min Normal [facility] Comment on above: Performed By: #### L 100.0100, L500.4050, L501.2450 ####[facility] [address] [place], [address] EST GFR - AA 102 mL/min Normal >60 [facility] Comment on above: Result Comment: Afri can Armenian GFR Calc Performed By: #### L 100.0100, L500.4050, L501.2450 ####[facility] [address] [place], [address] GAP 9 Normal 5-15 [facility] Comment on above: Performed By: #### L 100.0100, L500.4050, L501.2450 ####[facility] [address] [place], [address] GFR/1.73 sq M.predicted among non-blacks MDRD (S/P/Bld) [Vol rate/Area] 84 mL/min/{1.73_m2} Normal >60 [facility] Comment on above: Result Comment: Non- GFR Calc Performed By: #### L 100.0100, L500.4050, L501.2450 ####[facility] [address] [place], [address] Globulin (S) [Mass/Vol] 3.3 g/dL Normal 2.2-4.2 [facility] Comment on above: Performed By: #### L 100.0100, L500.4050, L501.2450 ####[facility] [address] [place], [address] Glucose [Mass/Vol] 117 mg/dL High 74-106 [facility] Comment on above: Result Comment: Fast ing Glucose result from 100 to 125 mg/dL suggests IMPAIRED HOMEOSTASIS per A.D.A. criteria. Performed By: #### L 100.0100, L500.4050, L501.2450 ####[facility] [address] [place], [address] Potassium [Moles/Vol] 3.7 mmol/L Normal 3.5-5.1 [facility] Comment on above: Performed By: #### L 100.0100, L500.4050, L501.2450 ####[facility] [address] [place], [address] Sodium [Moles/Vol] 140 mmol/L Normal 136-145 [facility] Comment on above: Performed By: #### L 100.0100, L500.4050, L501.2450 ####[facility] [address] [place], [address] T PROT 7.7 g/dL Normal 6.4-8.2 [facility] Comment on above: Performed By: #### L 100.0100, L500.4050, L501.2450 ####[facility] [address] [place], [address] Urea nitrogen [Mass/Vol] 8 mg/dL Normal 7-18 [facility] Comment on above: Performed By: #### L 100.0100, L500.4050, L501.2450 ####[facility] [address] [place], [address] Determination of erythrocyte mean corpuscular volume (MCV)Ordered By: Dr. Stacy on 09-18-2022 MCV (RBC) [Entitic vol] 90.9 fL 80-94 [facility] Emergency Department Summary on 09-18-2022 Emergency Department Summary [facility] Medical Records Department [address] [place] [address] Emergency Department Summary 09/18/22 MR#: [id number] Acct: [id number] Name: MANAV REBOLLEDO Rep #: [id number] : 1995 27 From: Benny Stacy MD PCP: Dr. Mikayla Gill MD Status:REG ER Location: ED HPI History of Present Illness Chief Complaint: Nausea/Vomiting Detail of Chief Complaint: Nausea vomiting with hematemesis and coffee-ground emesis Informant: spouse/S.O. Onset/Context/Timing Onset: Today Context: Sudden Onset Timing: Intermittent Quality: Initial to bouts of emesis without blood or coffee-ground appearing materia Location: GI Current Severity: Unable to determine because patient is moaning. Maximum Severity: Unable to determine Worsened by: Unable to determine Relieved by: Unable to determine Associated Symptoms Associated Symptoms: Unable to determine Narrative Narrative: Patient is a 27-year-old male who does have a care plan. He sought ER care 11 times over a 7-month. He has been seen by Dr. Bonilla in the past and was noted to have esophagitis due to reflux. He did see Dr. Marshall September 2021 with uncertainty of the cause of his abdominal pain. Patient's significant other informing that Dr. Marshall is aware of his marijuana use and that this is not the cause of his problems because he has been using marijuana for years. Of note there is no mention of marijuana use in Dr. Marshall's notes. Patient is lying in the bed unresponsive. When his arm was raised above his face he slowly brought it down to the side. Patient coughed once or twice. He then began to moan when I palpated his abdomen. Otherwise no history was obtained from the patient. The history was obtained from his significant other. She did take pictures of the emesis. There is concerned this represents a GI bleed. Since this occurred on the third episode of vomiting suspect that he has a Nila-Stewart tear. Also suspect patient has cyclic vomiting. [facility] Medical History Abdominal pain Depression Former smoker Nausea and vomiting Subclinical hypothyroidism Vitamin D deficiency Home Medications famotidine 20 mg tablet 20 mg PO BID #28 TABLETS 06/10/22 [Rx Last Taken Unknown] ondansetron HCl 4 mg tablet 4 mg PO Q6H PRN nausea and vomiting #20 tabs 06/10/22 [Rx Last Taken Unknown] Allergy/AdvReac Type Severity Reaction Status Date / Time adhesive tape Allergy Rash Verified 06/24/22 06:24 ibuprofen [From Motrin] AdvReac Upset Verified 06/24/22 06:24 Stomach Family History Mother Asthma Surgical History History of appendectomy Social History household members: significant other Smoking Status: Current every day smoker tobacco type: cigarettes alcohol intake: never substance use type: marijuana ROS ROS ED Review of Systems ROS Unobtainable: due to mental condition and due to mental status EXAM Physical Exam Const Vital Signs: 09/18/22 13:52 09/18/22 13:58 Temperature 97.8 F Temperature Source Temporal Pulse Rate 80 Respiratory Rate 20 H Blood Pressure 155/83 H Blood Pressure Mean 107 Pulse Ox 100 Oxygen Delivery Method Room Air Positive well nourished and well developed General Appearance ED: well developed and NAD; Negative for cyanotic, diaphoretic or pallor HEENT Reports moist mucous membranes HEENT Narrative: Head is atraumatic normocephalic. Ears normal. Nares patent. Posterior pharynx is unremarkable. Eyes PERRL and EOMs intact bilaterally General Eye ED: Negative for pale conjunctiva or scleral icterus Neck no lymphadenopathy, supple and no JVD Chest Wall inspection of chest normal and palpation of chest normal Resp normal respiratory effort and clear to auscultation bilaterally Cardio regular rate, regular rhythm, S1 normal heart sound, S2 normal heart sound and no murmurs GI normal to inspection, nondistended, normoactive bowel sounds, non-distended and no masses; Negative for non-tender or hepatosplenomegaly GI Narrative: Patient has pain out of proportion to light tactile stimulus. Patient would move my hand away. There was no voluntary or involuntary guarding with deep palpation. Palpation: soft Back/Spine no CVA tenderness Extremity normal to inspection General Extremety ED: Negative for edema, tenderness or other findings General Extremity: Negative for edema or other findings Neuro oriented x3, CN's II-XII intact bilaterally and no sensory deficits noted Psych Psych Narrative: Difficult to assess. Skin no rashes or lesions noted, no wounds and skin turgor normal General Skin Exa (more content not included)... Normal [facility] Glucose Glucometer (BldC) [M ass/Vol]on 09-18-2022 Glucose [Mass/Vol] 129 mg/dL 74-106 [facility] Comment on above: MANAGEMENT OF PATIEN T CARE PER NURSING PROTOCOL Hematocrit Auto (Bld) [Volum e fraction]Ordered By: Dr. Stacy on 09-18-2022 Hematocrit (Bld) [Volume fraction] 43.0 % 40-54 [facility] - Chemistry and C hemistry - challengeOrdered By: Dr. Stacy on 09-18-2022 ALP [Catalytic activity/Vol] 72 U/L 45-117 [facility] ALT [Catalytic activity/Vol] 33 U/L 16-61 [facility] CO2 [Moles/Vol] 24.0 mmol/L 21.0-32.0 [facility] Globulin (S) [Mass/Vol] 3.3 g/dL 2.2-4.2 [facility] Lipase [Catalytic activity/Vol] 21 U/L 13-75 [facility] Comment on above: Please note:LIPASE r evised reference range effective 22. New Lipase methodology. Expected to produce lower values than the previous assay method. NEW Reference Range: 13 - 75 U/L Urea nitrogen/Creatinine [Mass ratio] 7.3 mg/mg 10-20 [facility] - Hematology and Cell countsOrdered By: Dr. Stacy on 09-18-2022 Erythrocyte distribution width (RBC) [Entitic vol] 41.7 fL 35.1-43.9 [facility] Erythrocyte distribution width (RBC) [Ratio] 12.3 % 11.6-14.6 [facility] Immature granulocytes/100 WBC (Bld) 0.200 % 0.0-0.9 [facility] Comment on above: IG% - Immature Granu locytes (promyelocytes, myelocytes and metamyelocytes) > 1% indicates that a LEFT SHIFT is Present. MCH (RBC) [Entitic mass] 31.7 pg 27.0-32.0 [facility] Nucleated RBC/100 WBC (Bld) [Ratio] 0 % 0-5 [facility] Lipaseon 09-18-2022 Lipase [Catalytic activity/Vol] 21 U/L Normal 13-75 [facility] Comment on above: Result Comment: Ryland nicole note: LIPASE revised reference range effective 22. New Lipase methodology. Expected to produce lower values than the previous assay method. NEW Reference Range: 13 - 75 U/L Performed By: #### L 100.0100, L500.4050, L501.2450 ####[facility] [address] [place], [address] MCHC Auto (RBC) [Mass/Vol]Or dered By: Dr. Stacy on 09-18-2022 MCHC (RBC) [Mass/Vol] 34.9 g/dL 32-36 [facility] No Panel InformationOrdered By: Dr. Stacy on 09-18-2022 Estimated Creatinine Clearance Calc 99.09 ml/min [facility] Estimated GFR (MDRD) Amer 102 mL/min >60 [facility] Comment on above: GFR Calc Estimated GFR (MDRD) Non-Af Amer 84 mL/min >60 [facility] Comment on above: Non- GFR Calc Platelets bldOrdered By: Dr. Stacy on 09-18-2022 Platelets (Bld) [#/Vol] 321 10*3/uL 150-450 [facility] Serum or plasma albumin ruth urement (mass/volume)Ordered By: Dr. Stacy on 09-18-2022 Albumin [Mass/Vol] 4.4 g/dL 3.2-5.0 [facility] Serum or plasma albumin/glob ulin mass ratioOrdered By: Dr. Stacy on 09-18-2022 Albumin/Globulin [Mass ratio] 1.3 {ratio} 0.9-2.4 [facility] Serum or plasma calcium ruth urement (mass/volume)Ordered By: Dr. Stacy on 09-18-2022 Calcium [Mass/Vol] 10.1 mg/dL 8.5-10.1 [facility] Serum or plasma creatinine m easurement (mass/volume)Ordered By: Dr. Stacy on 09-18-2022 Creatinine [Mass/Vol] 1.10 mg/dL 0.70-1.30 [facility] Comment on above: The validity of the calculated GFR & GFRAA in patients over 70 years has not been determined. Clinical correlation is essential. Serum or plasma urea nitroge n measurement (mass/volume)Ordered By: Dr. Stacy on 09-18-2022 Urea nitrogen [Mass/Vol] 8 mg/dL 7-18 [facility] Thin prep Papanicolaou smear with manual screeningOrdered By: Dr. Stacy on 09-18-2022 Thin prep Papanicolaou smear with manual screening 22 U/L 15-37 [facility] Thin prep Papanicolaou smear with manual screening 9 5-15 [facility] Absolute lymphocyte countOrd ered By: Roney Paul on 2022 Lymphocytes Auto (Unsp spec) [#/Vol] 2.21 10*3/uL 0.83-4.51 [facility] Basophil percentageOrdered B y: Roney Paul on 2022 Basophils/100 WBC (Bld) 0.5 % 0-1 [facility] Eosinophils/100 WBC (Bld) 2.2 % 0-5 [facility] Lactate [Moles/Vol] 1.8 mmol/L 0.4-2.0 [facility] Neutrophils (Bld) [#/Vol] 6.2 10*3/uL 2.0-7.7 [facility] Neutrophils/100 WBC (Bld) 65.1 % 47-70 [facility] WBC (Bld) [#/Vol] 9.5 10*3/uL 4.4-11.0 [facility] Bilirubin [Mass/Vol] 0.20 mg/dL 0.20-1.00 [facility] Comment on above: For patients on eltr ombopag therapy, use of Dimension Stringer TBIL is not recommended. Chloride [Moles/Vol] 108 mmol/L 98-107 [facility] Glucose [Mass/Vol] 107 mg/dL 74-106 [facility] Comment on above: Fasting Glucose resu lt from 100 to 125 mg/dL suggests IMPAIRED HOMEOSTASIS per A.D.A. criteria. Potassium [Moles/Vol] 3.8 mmol/L 3.5-5.1 [facility] Protein [Mass/Vol] 7.1 g/dL 6.4-8.2 [facility] Sodium [Moles/Vol] 139 mmol/L 136-145 [facility] Blood erythrocytes count (nu mber/volume)Ordered By: Roney Paul on 2022 RBC (Bld) [#/Vol] 4.74 10*6/uL 4.6-6.2 [facility] Blood hemoglobin measurement (mass/volume)Ordered By: Roney Paul on 2022 Hemoglobin (Bld) [Mass/Vol] 14.6 g/dL 13.0-16.5 [facility] Blood lymphocytes/100 leukoc ytesOrdered By: Roney Paul on 2022 Lymphocytes/100 WBC (Bld) 23.2 % 19-41 [facility] Blood monocytes/100 leukocyt esOrdered By: Roney Paul on 2022 Monocytes/100 WBC (Bld) 8.7 % 0-10 [facility] Blood platelet mean volumeOr dered By: Roney Paul on 2022 Platelet mean volume (Bld) [Entitic vol] 9.8 fL 6.2-12.0 [facility] Determination of erythrocyte mean corpuscular volume (MCV)Ordered By: Roney Paul on 2022 MCV (RBC) [Entitic vol] 94.1 fL 80-94 [facility] Direct bilirubinOrdered By: Roney Paul on 2022 Bilirubin.direct [Mass/Vol] 0.09 mg/dL 0.00-0.30 [facility] Hematocrit Auto (Bld) [Volum e fraction]Ordered By: Roney Paul on 2022 Hematocrit (Bld) [Volume fraction] 44.6 % 40-54 [facility] - Chemistry and C hemistry - challengeOrdered By: Roney Paul on 2022 ALP [Catalytic activity/Vol] 55 U/L 45-117 [facility] ALT [Catalytic activity/Vol] 28 U/L 16-61 [facility] CO2 [Moles/Vol] 25.0 mmol/L 21.0-32.0 [facility] Globulin (S) [Mass/Vol] 3.4 g/dL 2.2-4.2 [facility] Lipase [Catalytic activity/Vol] 139 U/L 73-393 [facility] Urea nitrogen/Creatinine [Mass ratio] 8.5 mg/mg 10-20 [facility] - Hematology and Cell countsOrdered By: Roney Paul on 2022 Erythrocyte distribution width (RBC) [Entitic vol] 44.9 fL 35.1-43.9 [facility] Erythrocyte distribution width (RBC) [Ratio] 13.0 % 11.6-14.6 [facility] Immature granulocytes/100 WBC (Bld) 0.300 % 0.0-0.9 [facility] Comment on above: IG% - Immature Granu locytes (promyelocytes, myelocytes and metamyelocytes) > 1% indicates that a LEFT SHIFT is Present. MCH (RBC) [Entitic mass] 30.8 pg 27.0-32.0 [facility] Nucleated RBC/100 WBC (Bld) [Ratio] 0 % 0-5 [facility] MCHC Auto (RBC) [Mass/Vol]Or dered By: Roney Paul on 2022 MCHC (RBC) [Mass/Vol] 32.7 g/dL 32-36 [facility] No Panel InformationOrdered By: Roney Paul on 2022 Estimated Creatinine Clearance Calc 92.37 ml/min [facility] Estimated GFR (MDRD) Amer 94 mL/min >60 [facility] Comment on above: GFR Calc Estimated GFR (MDRD) Non-Af Amer 78 mL/min >60 [facility] Comment on above: Non- GFR Calc Platelets bldOrdered By: Luis F Paul on 2022 Platelets (Bld) [#/Vol] 287 10*3/uL 150-450 [facility] Serum or plasma C reactive p rotein measurement (mass/volume)Ordered By: Roney Paul on 2022 CRP [Mass/Vol] mg/L 0.0-3.0 [facility] Comment on above: C-Reactive Protein ( CRP) provides useful information for thediagnosis, therapy and monitoring of inflammatory processesand associated diseases. For the evaluation of Relative Riskfor Cardiovascular Disease, a High Sensitivity CRP (HSCRP)should be ordered. Serum or plasma albumin ruth urement (mass/volume)Ordered By: Roney Paul on 2022 Albumin [Mass/Vol] 3.7 g/dL 3.2-5.0 [facility] Serum or plasma calcium ruth urement (mass/volume)Ordered By: Roney Paul on 2022 Calcium [Mass/Vol] 9.3 mg/dL 8.5-10.1 [facility] Serum or plasma creatinine m easurement (mass/volume)Ordered By: Roney Paul on 2022 Creatinine [Mass/Vol] 1.18 mg/dL 0.70-1.30 [facility] Comment on above: The validity of the calculated GFR & GFRAA in patients over 70 years has not been determined. Clinical correlation is essential. Serum or plasma urea nitroge n measurement (mass/volume)Ordered By: Roney Paul on 2022 Urea nitrogen [Mass/Vol] 10 mg/dL 7-18 [facility] Thin prep Papanicolaou smear with manual screeningOrdered By: Roney Paul on 2022 Thin prep Papanicolaou smear with manual screening 27 U/L 15-37 [facility] Thin prep Papanicolaou smear with manual screening 6 5-15 [facility] AUTO DIFFon 06-22-2022 Baso Count 0.10 x1000 Normal 0.00-0.20 [facility] Comment on above: Performed By: #### 1 53789, 5804746, 145325, 130795, 204882 ####[facility] [address] [place] [address] Medical Director: Pollo Agarwal MD Basos % 0.8 % Normal [facility] Comment on above: Performed By: #### 1 27036, 3610937, 542645, 051665, 520624 ####[facility] [address] [place] [address] Medical Director: Pollo Agarwal MD Eos Count 0.10 x1000 Normal 0.00-0.50 [facility] Comment on above: Performed By: #### 1 25074, 2283143, 836898, 447540, 592755 ####[facility] [address] [place] [id number] Medical Director: Pollo Agarwal MD Eosinophils/100 WBC (Bld) 0.7 % Normal [facility] Comment on above: Performed By: #### 1 42495, 2493862, 647385, 521037, 184776 ####[facility] [address] [place] [id number] Medical Director: Pollo Agarwal MD Lymph Count 2.20 x1000 Normal 1.20-4.80 [facility] Comment on above: Performed By: #### 1 09029, 0664226, 522405, 693029, 886020 ####[facility] [address] [place] [address] Medical Director: Pollo Agarwal MD Lymphocytes/100 WBC (Bld) 17.8 % Normal [facility] Comment on above: Performed By: #### 1 42884, 3783728, 133893, 265609, 582715 ####[facility] [address] [place], [place] [id number] Medical Director: Pollo Agarwal MD Mohave Count 0.60 x1000 Normal 0.10-1.00 [facility] Comment on above: Performed By: #### 1 29169, 3449882, 945582, 578755, 705463 ####[facility] [address] [place] [address] Medical Director: Pollo Agarwal MD Monocytes/100 WBC (Bld) 4.9 % Normal [facility] Comment on above: Performed By: #### 1 19182, 2999361, 395907, 611824, 380080 ####[facility] [address] [place] [address] Medical Director: Pollo Agarwal MD Neutrophil Count (ANC) 9.60 x1000 High 1.40-8.80 So [facility] Comment on above: Performed By: #### 1 59737, 8150359, 063059, 495079, 686563 ####[facility] [address] [place] [address] Medical Director: Pollo Agarwal MD Neutrophils/100 WBC (Bld) 75.8 % Normal [facility] Comment on above: Performed By: #### 1 17072, 6355489, 369410, 611891, 935368 ####[facility] [address] [place] [address] Medical Director: Pollo Agarwal MD COMPMETAon 06-22-2022 Albumin [Mass/Vol] 4.1 g/dL Normal 3.4-5.0 [facility] Comment on above: Performed By: #### 1 96707, 7738065, 146585, 994941, 831730 ####[facility] [address] [place] [address] Medical Director: Pollo Agarwal MD Albumin/Globulin [Mass ratio] 1.5 {ratio} Normal [facility] Comment on above: Performed By: #### 1 32479, 3325843, 050513, 972232, 590257 ####[facility] [address] [place] [address] Medical Director: Pollo Agarwal MD Alk Phos 49 unit/L Normal 45-117 [facility] Comment on above: Performed By: #### 1 57758, 1094892, 692075, 153452, 622108 ####[facility] [address] [place] [address] Medical Director: Pollo Agarwal MD Bilirubin [Mass/Vol] 0.40 mg/dL Normal 0.20-1.00 [facility] Comment on above: Result Comment: Use of this assay is not recommended for patients undergoing treatment with eltrombopag due to the potential for falsely elevated results. Performed By: #### 1 92055, 2146906, 077017, 920876, 839892 ####[facility] [address] [place] [address] Medical Director: Pollo Agarwal MD Calcium [Mass/Vol] 9.3 mg/dL Normal 8.5-10.5 [facility] Comment on above: Performed By: #### 1 80661, 8287401, 538702, 950731, 863976 ####[facility] [address] [place] [address] Medical Director: Pollo Agarwal MD Chloride [Moles/Vol] 102 mmol/L Normal 100-109 [facility] Comment on above: Performed By: #### 1 52220, 6497176, 640534, 091991, 851203 ####[facility] [address] [place] [address] Medical Director: Pollo Agarwal MD CO2 [Moles/Vol] 24.4 mmol/L Normal 21.0-32.0 [facility] Comment on above: Performed By: #### 1 41107, 7913900, 383432, 143322, 169909 ####[facility] [address] [place] [address] Medical Director: Pollo Agarwal MD Creatinine [Mass/Vol] 1.0 mg/dL Normal 0.7-1.3 [facility] Comment on above: Performed By: #### 1 68222, 8441134, 667682, 120930, 416847 ####[facility] [address] [place] [address] Medical Director: Pollo Agarwal MD Globulin (S) [Mass/Vol] 2.8 g/dL Normal [facility] Comment on above: Performed By: #### 1 50933, 5726627, 152546, 261704, 270959 ####[facility] [address] [place] [address] [facility] Glucose [Mass/Vol] 116 mg/dL High 72-100 [facility] Comment on above: Result Comment: Yolanda puncture should occur prior to sulfasalazine administration due to the potential for falsely depressed results. Venipuncture should occur prior to sulfapyridine administration due to the potential falsely elevated results. Baseline assay values before administration of sulfasalazine and sulfapyridine therapy would not be affected. Performed By: #### 1 11508, 1217314, 087023, 852309, 378261 ####[facility] [address] [place] [address] [facility] MD GOT 23 unit/L Normal 15-37 [facility] Comment on above: Result Comment: Yolanda puncture should occur prior to sulfasalazine administration due to the potential for falsely depressed results. Baseline assay values before administration of sulfasalazine and sulfapyridine therapy would not be affected. Performed By: #### 1 10842, 6540469, 484754, 637941, 477844 ####[facility] [address] [place] [address] [facility] MD GPT 26 unit/L Normal 16-63 [facility] Comment on above: Result Comment: Yolanda puncture should occur prior to sulfasalazine administration due to the potential for falsely depressed results. Baseline assay values before administration of sulfasalazine and sulfapyridine therapy would not be affected. Performed By: #### 1 70716, 5181213, 679236, 416046, 109676 ####[facility] [address] [place] [address] Medical Director: Pollo Agarwal MD Osmolality [Osmolality] 277 mosm/kg Normal 275-295 [facility] Comment on above: Performed By: #### 1 31778, 7339647, 963903, 589455, 148271 ####[facility] [address] [place], [place] [id number]) [phone] Director: Pollo Agarwal MD Potassium [Moles/Vol] 3.4 mmol/L Low 3.5-5.1 [facility] Comment on above: Result Comment: Rech ecked. Specimen is slightly hemolyzed. Results may be affected. Please notify Laboratory if redraw is requested. Performed By: #### 1 51958, 8188831, 846752, 173085, 410700 ####[facility] [address] [place], [place] [id number]) [phone] Director: Pollo Agarwal MD Protein [Mass/Vol] 6.9 g/dL Normal 6.0-8.5 [facility] Comment on above: Performed By: #### 1 55155, 8885654, 921134, 858525, 431858 ####[facility] [address] [place] [address] Medical Director: Pollo Agarwal MD Sodium [Moles/Vol] 139 mmol/L Normal 135-145 [facility] Comment on above: Performed By: #### 1 97482, 1407428, 010019, 278959, 390491 ####[facility] [address] [place], [place] [address]) [phone] Director: Pollo Agarwal MD Urea nitrogen [Mass/Vol] 9 mg/dL Low 10-20 [facility] Comment on above: Performed By: #### 1 13887, 6989966, 119771, 434909, 962661 ####[facility] [address] [place] [address] Medical Director: Pollo Agarwal MD Urea nitrogen/Creatinine [Mass ratio] 9.0 mg/mg Normal [facility] Comment on above: Performed By: #### 1 65522, 5649741, 033931, 302630, 236078 ####[facility] [address] [place] [address] Medical Director: Pollo Agarwal MD ED Adult Data - Texton 06-22 ED Adult Data - Text ED Adult Data Enter ed On: 06/22/2022 8:35 EST Performed On: 06/22/2022 8:33 EST by Sonali Parker RN Arrival Information Information Given by : Patient Referral Source ED : Home [facility] Mode of Arrival : Car / Walk-In Airway : Normal Breathing : Normal Circulation : Normal Sonali Parker RN - 06/22/2022 8:33 EST Screening-General Meds Triage : Other Accept Blood Products if Necessary : Yes Immunizations Current : Unknown Last Tetanus : Unknown Status : N/A Sonali Parker RN - 06/22/2022 8:33 EST Depression Screening Patient able to verbalize? : Yes Feeling Down, Depressed, Hopeless : Not at all Little Interest - Pleasure in Activities : Not at all Initial Depression Screen Score : 0 Depression Screening Score 0 : No IP Pt being evaluated or treated for BH conditions : No Sonali Parker RN - 06/22/2022 8:33 EST Screening-Safety Abuse/Violence Concerns? : Patient denies Does the patient have a medically restricted extremity? : No Sonali Parker RN - 06/22/2022 8:33 EST Problem List Problem List obtained from : Patient Keith CAVANAUGH, Sonali - 06/22/2022 8:33 EST (As Of: 06/22/2022 08:35:25 EST) Problems(Active) Cyclic vomiting syndrome (SNOMED CT :10772750 ) Name of Problem: Cyclic vomiting syndrome ; Recorder: Sonali Parker RN; Confirmation: Confirmed ; Classification: Medical ; Code: [id number] ; Contributor System: Anago ; Last Updated: 06/22/2022 08:34 EST ; Life Cycle Date: 06/22/2022 ; Life Cycle Status: Active ; Vocabulary: SNOMED CT Diagnoses(Active) Abdominal pain Date: 06/22/2022 ; Diagnosis Type: Reason For Visit ; Confirmation: Confirmed ; Clinical Dx: Abdominal pain ; Classification: Medical ; Clinical Service: Emergency medicine ; Code: PNED ; Probability: 0 ; Diagnosis Code: [id number] Procedure History ED Devices Present on Arrival To ED : None Urinary Catheter Present on Admit to ED : No Sonali Parker RN - 06/22/2022 8:33 EST - Procedure History (As Of: 06/22/2022 08:35:26 EST) Social History Does pt have any alcohol,drugs or tobacco : No Do you consume Alcohol : No Social History obtained from : Patient Sonali Parker RN - 06/22/2022 8:33 EST Social History (As Of: 06/22/2022 08:35:26 EST) Alcohol: Denies Alcohol Use (Last Updated: 06/22/2022 08:35:16 EST by Sonali Parker RN ) Substance Abuse: Current, Marijuana (Last Updated: 06/22/2022 08:35:03 EST by Sonali Parker RN) Infection Screening Last Physical Overnight Location of the Patient : Personal Residence Travel outside [place] within past 30 days : No Exposure AND/OR close contact with a person under investigation or laboratory-confirmed COVID-19 individual within 14 days of symptom onset AND/OR any of the following: : No Do you live/work in a high risk situation (congregated living, hemodialysis, infusion clinic, detention, assisted living, jail, homeless halfway, etc.)? : No Sonali Parker RN - 06/22/2022 8:33 EST Normal [facility] ED Discharge Educationon ED Discharge Education Hypokalemia: Care Instructions Hypokalemia (say qg-qk-irm-SHANA-chuck-uh) is a low level of potassium. The heart, muscles, kidneys, and nervous system all need potassium to work well. This problem has many different causes. Kidney problems, diet, and medicines like diuretics and laxatives can cause it. So can vomiting or diarrhea. In some cases, cancer is the cause. Your doctor may do tests to find the cause of your low potassium levels. You may need medicines to bring your potassium levels back to normal. You may also need regular blood tests to check your potassium. If you have very low potassium, you may need intravenous (IV) medicines. You also may need tests to check the electrical activity of your heart. Heart problems caused by low potassium levels can be very serious. Follow-up care is a mcfarlane part of your treatment and safety. Be sure to make and go to all appointments, and call your doctor if you are having problems. It's also a good idea to know your test results and keep a list of the medicines you take. How can you care for yourself at home? ? If your doctor recommends it, eat foods that have a lot of potassium. These include fresh fruits, juices, and vegetables. They also include nuts, beans, and milk. ? Be safe with medicines. If your doctor prescribes medicines or potassium supplements, take them exactly as directed. Call your doctor if you have any problems with your medicines. ? Get your potassium levels tested as often as your doctor tells you. When should you call for help? Call 911 anytime you think you may need emergency care. For example, call if: ? You feel like your heart is missing beats. Heart problems caused by low potassium can cause . ? You passed out (lost consciousness). ? You have a seizure. Call your doctor now or seek immediate medical care if: ? You feel weak or unusually tired. ? You have severe arm or leg cramps. ? You have tingling or numbness. ? You feel sick to your stomach, or you vomit. ? You have belly cramps. ? You feel bloated or constipated. ? You have to urinate a lot. ? You feel very thirsty most of the time. ? You are dizzy or lightheaded, or you feel like you may faint. ? You feel depressed, or you lose touch with reality. Watch closely for changes in your health, and be sure to contact your doctor if: ? You do not get better as expected. Where can you learn more? Go to [email or web address] Enter G358 in the search box to learn more about Hypokalemia: Care Instructions. Current as of: August 12, 2019 Content Version: 12.7 ? [employer]. Care instructions adapted under license by your healthcare professional. If you have questions about a medical condition or this instruction, always ask your healthcare professional. [employer] disclaims any warranty or liability for your use of this information. Learning About Cyclic Vomiting Syndrome What is it? An adult or child who has cyclic vomiting syndrome (CVS) has repeated bouts of severe vomiting and nausea. Between the vomiting episodes, the person's health is normal. The cause of CVS isn't known, but it may be related to migraine headaches, and may be related to canniboid use, such as CBD oil and marijuana. What happens when you have CVS? CVS causes severe nausea, vomiting, and drooling. You may not be able to walk or talk during an episode. You may look pale. You may have a fever and feel very tired and thirsty. Some people with CVS have belly pain and diarrhea. Bouts of vomiting can last for a few hours or a few days. People with this condition tend to have a typical pattern of attacks. For example, one person may have bouts of CVS 4 times a year and always in the morning. Another person may have 8 bouts a year and always in the evening. Some people with CVS have triggers that set off the vomiting. People have reported an infection, such as a cold, as a trigger. Other triggers include stress, menstrual cycles, and certain foods like chocolate or cheese. Children tend to have more triggers than adults do. How is CVS treated? Treatment is centered around easing the nausea and vomiting. The doctor may prescribe medicine. During very bad bouts of vomiting, your doctor may want you to stay in the hospital for a while. You may get fluids through a vein (IV) to prevent dehydration. Dehydration can be serious. Your body needs fluids to make enough blood. Without a good supply of blood, vital organs such as the heart and brain can't work as well as they should. When should you call for help? Call your doctor now or seek immediate medical care if: ? You have new or worse belly pain. ? You have a fever. ? You are vomiting. ? You cannot pass stools or gas. ? You have symptoms of dehydration, such as: ? Dry eyes and a dry mouth. ? Passing only a little urine. ? Feeling thirstier than usual. Watch closely for changes in your health, a (more content not included)... Normal [facility] ED Emergency Severity Index Adult-Texton 06-22-2022 ED Emergency Severity Index Adult-Text RANDAL - Adult Entered On: 06/22/2022 8:27 EST Performed On: 06/22/2022 8:10 EST by Camille Grossman RN RANDAL DCP GENERIC CODE Visit Reason : abd pain Tracking Triage Date/Time : 06/22/2022 08:27 EST Tracking Reg Status : Requested Tracking Acuity : 3-Urgent Tracking Group : Camille Leigh RN - 06/22/2022 8:27 EST Normal [facility] ED Nrsing Adlt Triage Sep Sc rning - Texton 06-22-2022 ED Nrsing Adlt Triage Sep Scrning - Text ED Nursing Adult Triage Sepsis Screening Tool Entered On: 06/22/2022 8:35 EST Performed On: 06/22/2022 8:35 EST by Sonali Parker RN Adult Sepsis Screening Sepsis Infection Screening ED : No Snoali Parker RN - 06/22/2022 8:35 EST Normal [facility] ED Patient Summaryon 023 ED Patient Summary [facility] Emergency Department Discharge Instructions [address] [place] [address] \.br\(Patient Copy)\.br\ \.br\Name: MANAV REBOLLEDO : 1995 \.br\Allergies: ibuprofen\.br\Diagnosi s: Cyclical vomiting\.br\ \.br\ Visit Date: 06/22/2022 08:08:38 \.br\ Current Date Time: 06/22/2022 14:13:38 \.br\Address: [address] [place] [address] \.br\ \.br\ \.br\Primary Care Provider: \.br\ Name: NO FAMILY PHYSICIAN, 837\.br\ Phone: \.br\ \.br\Emergency Department Care Providers: \.br\ Primary Physician: PERNELL SWARTZ MD \.br\ \.br\ \.br\\.br\Thank you for choosing [facility] for your emergency care. You are very important to us. Our goal is to demonstrate our high quality medical care, and provide you with a very good patient experience.\.br\\.br\Y ou may receive a survey about our service. Please take the time to complete the survey and return it so we can continue to enhance our service.\.br\\.br\Than k you again for allowing the [facility] Emergency Department to care for your medical needs. If you have questions about your care or follow up information please contact us at [phone].\.br\\.br \ Follow-Up Instructions\.br\ \.b r\MANAV REBOLLEDO has been given these follow-up instructions:\.br\\.br \\.br\With: Address: When: \.br\AndPlease call to see your doctor in Dr. Marcie Friend Within Call for Appointment \.br\\.br\\.br\With: Address: When: \.br\LYNNE MACARIO, Gastroenterology [address] [facility] [address] [place] [address]\.br\ Business (3) Within 3 to 5 days \.br\\.br\\.br\\.br\\. br\ Patient Education Materials\.br\ \.br\MANAV LEDESMA has been given the following patient education materials:\.br\\.br\Hy pokalemia: Care Instructions\.br\Hypok alemia (say na-wm-rsp-SHANA-chuck-uh) is a low level of potassium. The heart, muscles, kidneys, and nervous system all need potassium to work well.\.br\This problem has many different causes. Kidney problems, diet, and medicines like diuretics and laxatives can cause it. So can vomiting or diarrhea. In some cases, cancer is the cause. Your doctor may do tests to find the cause of your low potassium levels.\.br\You may need medicines to bring your potassium levels back to normal. You may also need regular blood tests to check your potassium.\.br\If you have very low potassium, you may need intravenous (IV) medicines. You also may need tests to check the electrical activity of your heart. Heart problems caused by low potassium levels can be very serious.\.br\Follow-up care is a mcfarlane part of your treatment and safety. Be sure to make and go to all appointments, and call your doctor if you are having problems. It's also a good idea to know your test results and keep a list of the medicines you take.\.br\How can you care for yourself at home?\.br\? If your doctor recommends it, eat foods that have a lot of potassium. These include fresh fruits, juices, and vegetables. They also include nuts, beans, and milk.\.br\? Be safe with medicines. If your doctor prescribes medicines or potassium supplements, take them exactly as directed. Call your doctor if you have any problems with your medicines.\.br\? Get your potassium levels tested as often as your doctor tells you.\.br\When should you call for help?\.br\ Call 911 anytime you think you may need emergency care. For example, call if: \.br\ ? You feel like your heart is missing beats. Heart problems caused by low potassium can cause . \.br\ ? You passed out (lost consciousness). \.br\ ? You have a seizure. \.br\Call your doctor now or seek immediate medical care if:\.br\ ? You feel weak or unusually tired. \.br\ ? You have severe arm or leg cramps. \.br\ ? You have tingling or numbness. \.br\ ? You feel sick to your stomach, or you vomit. \.br\ ? You have belly cramps. \.br\ ? You feel bloated or constipated. \.br\ ? You have to urinate a lot. \.br\ ? You feel very thirsty most of the time. \.br\ ? You are dizzy or lightheaded, or you feel like you may faint. \.br\ ? You feel depressed, or you lose touch with reality. \.br\Watch closely for changes in your health, and be sure to contact your doctor if:\.br\ ? You do not get better as expected. \.br\Where can you learn more?\.br\Go to [email or web address]\.[email or web address]\Ent er G358 in the search box to learn more about Hypokalemia: Care Instructions.\.br\Curr ent as of: August 12, 2019 Content Version: 12.7\.br\? [employer]. \.br\Care instructions adapted under license by your healthcare professional. If you have questions about a medical condition or this instruction, always ask your healthcare professional. [employer] disclaims any warranty or liability for your use of this information.\.br\\.br\ \.br\ (more content not included)... Normal [facility] ED Physician Reporton 2022 ED Physician Report Patient: MANAV REBOLLEDO Age: 26 years Sex: Male : 1995 Associated Diagnoses: Cyclical vomiting Author: PERNELL SWARTZ MD Basic Information Time seen: Date & time 06/22/2022 08:10:00. History source: Patient, Girlfriend on the phone in [place] ([place]). Arrival mode: Private vehicle. History limitation: patient refuses to talk or give history. History of Present Illness The patient presents with abdominal pain and According to Nash the patient's girlfriend on the phone from home patient has had a 2 or 3-year history of cyclic vomiting with episodes very frequent throughout the year. He has a GI specialist, Dr. Haji Friend from [place] who is in the process of doing a full work-up. He has had EGD and colonoscopy. He had CT scan 1 week ago which showed his colon was inflamed. He is not taking any medication now. He has been told it is cyclic vomiting. More frequently his episodes are lasting longer and they are closer together. Narcotic pain medicine does not help. He is out of his orally dissolvable Zofran and Ativan. In the past he has been given Bentyl as well as Haldol which has been helpful. They feel it is related to his diet and any Posta or dairy makes his symptoms occur. Last night they had macaroni and cheese so she suspects that is why he is having an episode now. When asked about his marijuana use they do admit that he smokes a few times a month but that his doctor does not believe that that is the cause of this cyclic vomiting syndrome he has.. Associated symptoms: nausea, vomiting, denies chest pain, denies diarrhea and denies shortness of breath. Review of Systems Constitutional symptoms: Negative except as documented in HPI. Skin symptoms: Negative except as documented in HPI. Eye symptoms: Negative except as documented in HPI. ENMT symptoms: Negative except as documented in HPI. Respiratory symptoms: Negative except as documented in HPI. Cardiovascular symptoms: Negative except as documented in HPI. Gastrointestinal symptoms: Negative except as documented in HPI. Genitourinary symptoms: Negative except as documented in HPI. Musculoskeletal symptoms: Negative except as documented in HPI. Psychiatric symptoms: Negative except as documented in HPI. Endocrine symptoms: Negative except as documented in HPI. Hematologic/Lymphatic symptoms: Negative except as documented in HPI. Allergy/immunologic symptoms: Negative except as documented in HPI. Neurologic symptoms Negative except as documented in HPI. Additional review of systems information: All other systems reviewed and otherwise negative. Health Status Allergies: No active allergies have been recorded.. Medications: None. Immunizations: Per nurse's notes. Past Medical/ Family/ Social History Medical history: No active or resolved past medical history items have been selected or recorded.. Surgical history: No active procedure history items have been selected or recorded.. Family history: No family history items have been selected or recorded.. Social history: Alcohol use: Denies, Tobacco use: Denies, Drug use: Marijuana, Occupation: Employed, Family/social situation: Unmarried. Problem list: No qualifying data available . Physical Examination General: Alert, no acute distress, ill-appearing, Patient lays on the bed with eyes closed refusing to speak. Vital Signs Skin: Warm, dry, no rash. Head: Normocephalic, atraumatic. Neck: Supple, trachea midline. Eye: Normal conjunctiva, vision unchanged. Ears, nose, mouth and throat: Oral mucosa moist. Cardiovascular: Regular rate and rhythm, No murmur, Normal peripheral perfusion, No edema. Respiratory: Lungs are clear to auscultation, respirations are non-labored, breath sounds are equal. Gastrointestinal: Soft, Non distended, Normal bowel sounds, No organomegaly, Tenderness: Mild, generalized. Back: Normal range of motion, Normal alignment. Musculoskeletal: Normal ROM, normal strength. Psychiatric: Uncooperative. Neurological Alert and oriented to person, place, time, and situation, No focal neurological deficit observed, normal sensory observed, normal motor observed. Medical Decision Making Differential Diagnosis: Cyclic vomiting. Results review: Lab results : Laboratory 06/22/2022 10:00 EST Color, U Yellow Appearance, U Clear Specific Minerva, U 1.020 pH, U 8.5 Protein, U Negative Glucose Qual, U Negative Ketones, U 40 mg/dl Bilirubin, U Negative Blood, U Negative Urobilinogen Qual, U 0.2 EU/dl Nitrite, U Negative Leukocyte Esterase, U Negative Amphetamines, U Neg Barbituates, U Neg PCP, U Neg Benzodiazepines, U Neg Cocaine, U Neg THC, U Pos Opiates, U Neg Ecstasy, U Neg 06/22/2022 8:50 EST BUN 9 mg/dL LOW Na 139 mmol/L NORMAL K 3.4 mmol/L LOW Chloride 102 mmol/L NORMAL CO2, venous 24.4 mmol/L NORMAL Glucose 116 mg/dL HI Creatinine 1.0 mg/dL NORMAL Total Protein (more content not included)... Normal [facility] ED Progress Noteon ED Progress Note 09 Patient arrives ambulatory with a steady gait.. Pt is spitting clear fluids into an emesis bag. Pt states he has had a history of cyclic vomiting. States this morning his vomiting began 1 hour prior to arrival. Pt does smoke marijuana. Dr Swartz examines. Pt's is on the phone speaking to both patient and MD regarding his medical history. IV line established and labs sent. 0930 Pt medicated as ordered. 1035 Additional pain medication given. Vitals monitored. Pt with his eyes closed, call light in reach. 1130 Pt has not vomited since arrival, however feels he is still nauseated. Medicated again with Haldol. Awaiting for his girlfriend to arrive. 1230 Continue to await for his girlfriend. Pt has been sleeping. No vomiting. 1325 Pt discharged to home with instructions and RX x 2 given. Steady ambulation upon discharge. Normal [facility] ED Triage Adult-Texton 06-22 ED Triage Adult-Text ED Triage Entered O n: 06/22/2022 9:59 EST Performed On: 06/22/2022 9:00 EST by Sonali Parker RN Triage (As Of: 06/22/2022 09:59:48 EST) Problems(Active) Cyclic vomiting syndrome (SNOMED CT :46941071 ) Name of Problem: Cyclic vomiting syndrome ; Recorder: Sonali Parker RN; Confirmation: Confirmed ; Classification: Medical ; Code: 91136454 ; Contributor System: Anago ; Last Updated: 06/22/2022 08:34 EST ; Life Cycle Date: 06/22/2022 ; Life Cycle Status: Active ; Vocabulary: SNOMED CT Diagnoses(Active) Abdominal pain Date: 06/22/2022 ; Diagnosis Type: Reason For Visit ; Confirmation: Confirmed ; Clinical Dx: Abdominal pain ; Classification: Medical ; Clinical Service: Emergency medicine ; Code: PNED ; Probability: 0 ; Diagnosis Code: [id number] (As Of: 06/22/2022 09:59:48 EST) Allergies (Active) ibuprofen Estimated Onset Date: Unspecified ; Reactions: GI upset ; Created By: Sonali Parker RN; Reaction Status: Active ; Category: Drug ; Substance: ibuprofen ; Type: Sensitivity ; Updated By: Sonali Parker RN; Reviewed Date: 06/22/2022 9:59 EST Vitals/Ht/Wt Pain Symptoms : Yes Numeric Pain Scale : 8 = Severe Pain VAS Pain Scale Age : VAS (8 yrs & older) Height/Length Dosing : 175 cm(Converted to: 5.74 ft, 68.90 in) Weight Measured Type of Scale : Patient Stated Weight Patient Stated Weight : 100 kg(Converted to: 3,527.40 oz, 220.46 lb) Sonali Parker RN - 06/22/2022 9:59 EST Normal [facility] HEMOon 06-22-2022 DIFF? No Normal [facility] Comment on above: Performed By: #### 1 72574, 0066036, 536813, 266021, 958257 ####[facility] [address] [place], [place] [id number]) [phone] Director: Pollo Agarwal MD Erythrocyte distribution width (RBC) [Ratio] 13.7 % Normal 11.5-14.5 [facility] Comment on above: Performed By: #### 1 25209, [id number], 130411, 242741, 280384 ####[facility] [address] [place], [place] [id number]) [phone] Director: Pollo Agarwal MD Hematocrit (Bld) [Volume fraction] 44.4 % Normal 41.0-52.0 [facility] Comment on above: Performed By: #### 1 09720, 8990364, 583897, 105082, 985988 ####[facility] [address] [place] [address] Medical Director: Pollo Agarwal MD Hemoglobin (Bld) [Mass/Vol] 14.5 g/dL Normal 13.5-17.5 [facility] Comment on above: Performed By: #### 1 84124, 2882839, 711097, 286302, 422607 ####[facility] [address] [place], [place] [id number]) [phone] Director: Pollo Agarwal MD Instr WBC 12.6 Normal [facility] Comment on above: Performed By: #### 1 05149, 0430796, 047072, 434971, 544380 ####[facility] [address] [place], [place] [id number]) [phone] Director: Pollo Agarwal MD MCH (RBC) [Entitic mass] 30.3 pg Normal 27.0-34.0 [facility] Comment on above: Performed By: #### 1 07371, 0550785, 393423, 667073, 078236 ####[facility] [address] [place] [address] Medical Director: Pollo Agarwal MD MCHC (RBC) [Mass/Vol] 32.6 g/dL Normal 32.0-37.0 [facility] Comment on above: Performed By: #### 1 97456, 1742045, 570515, 582976, 128832 ####[facility] [address] [place] [address] Medical Director: Pollo Agarwal MD MCV (RBC) [Entitic vol] 92.9 fL Normal 80.0-100.0 [facility] Comment on above: Performed By: #### 1 52211, 8092903, 782222, 633015, 741016 ####[facility] [address] [place] [address] Medical Director: Pollo Agarwal MD Nucleated RBC 0 /100WBC Normal [facility] Comment on above: Performed By: #### 1 09394, 1058464, 825031, 231837, 441417 ####[facility] [address] [place] [address] Medical Director: Pollo Agarwal MD Platelet 310 x10 Normal 150-450 [facility] Comment on above: Performed By: #### 1 63296, 6966903, 091105, 862211, 758401 ####[facility] [address] [place] [address] Medical Director: Pollo Agarwal MD Platelet mean volume (Bld) [Entitic vol] 8.3 fL Normal 7.4-10.4 [facility] Comment on above: Performed By: #### 1 14331, 3092962, 090375, 397215, 037181 ####[facility] [address] [place] [address] Medical Director: Pollo Agarwal MD RBC 4.78 x10 Normal 4.70-6.10 [facility] Comment on above: Result Comment: Note : RBC morphology is normal unless otherwise stated. Evaluation performed only if differential is requested. Performed By: #### 1 35117, 8090105, 876619, 367411, 907857 ####[facility] [address] [place] [address] Medical Director: Pollo Agarwal MD WBC 12.6 x10 High 4.5-11.0 [facility] Comment on above: Performed By: #### 1 11448, 7698040, 553002, 753254, 832319 ####[facility] [address] [place] [address] Medical Director: Pollo Agarwal MD LACTATEon 06-22-2022 Lactate [Moles/Vol] 1.3 mmol/L Normal 0.4-2.0 [facility] Comment on above: Performed By: #### 1 10793 #### [facility] [address] [place] [address] Structural Engineering Drafting Officer: Pollo Agarwal MD LIPon 06-22-2022 Lipase [Catalytic activity/Vol] 55 U/L Low 73-393 [facility] Comment on above: Performed By: #### 1 29380, 3338826, 545801, 785388, 426997 ####[facility] [address] [place] [address] Medical Director: Pollo Agarwal MD MG LEVELon 06-22-2022 Magnesium [Mass/Vol] 2.0 mg/dL Normal 1.6-2.4 [facility] Comment on above: Performed By: #### 1 37796, 1649791, 281822, 974943, 353304 ####[facility] [address] [place] [address] Medical Director: Pollo Agarwal MD MorPHINE 2MG/1ML INJon 06-22 MorPHINE 2MG/1ML INJ PRN Response Entere d On: 06/22/2022 11:13 EST Performed On: 06/22/2022 11:00 EST by Keith CAVANAUGH Sonali Intervention Information: morphine Performed by Sonali Parker RN on 06/22/2022 10:29:00 EST morphine,2mg IV Push,Right Hand PRN Medication Response PRN Medication used for : Pain PRN Medication Effectiveness : No PRN Response Pain Scales : Numeric (8yrs & older) Numeric Pain Scale Age : Numeric (8yrs & older) Actual time of reassessment : Yes Keith CAVANAUGH Sonali - 06/22/2022 11:13 EST Numeric Pain Scale Numeric Pain Scale : 6 = Moderate Pain Numeric Pain Score : 6 Keith CAVANAUGH Sonali - 06/22/2022 11:13 EST Normal [facility] Comment on above: Order Comment: ambrocio pathak SOUND ALIKE/LOOK ALIKE-verify med; potential SOUND ALIKE/LOOK ALIKE-verify med; U DOAon 06-22-2022 Amphetamines, U Negative [facility] Comment on above: Performed By: #### 1 68865 #### [facility] [address] [place] [address] [id number] Structural Engineering Drafting Officer: Pollo Agarwal MD Barbituates, Negative [facility] Comment on above: Performed By: #### 1 75102 #### [facility] [address] [place] [address] Structural Engineering Drafting Officer: Pollo Agarwal MD Benzodiazepines, U Negative Normal [facility] Comment on above: Performed By: #### 1 03667 #### [facility] [address] [place] [address] Structural Engineering Drafting Officer: Pollo Agarwal MD Cocaine, U Negative [facility] Comment on above: Performed By: #### 1 18566 #### [facility] [address] [place] [address] Structural Engineering Drafting Officer: Pollo Agarwal MD Ecstasy, U Negative Normal [facility] Comment on above: Performed By: #### 1 17853 #### [facility] [address] [place] [address] Structural Engineering Drafting Officer: Pollo Agarwal MD Opiates, U Negative Normal [facility] Comment on above: Performed By: #### 1 75101 #### [facility] [address] [place] [address] Structural Engineering Drafting Officer: Pollo Agarwal MD PCP, U Negative Normal [facility] Comment on above: Performed By: #### 1 78167 #### [facility] [address] [place] [address] Structural Engineering Drafting Officer: Pollo Agarwal MD THC, U Positive Normal [facility] Comment on above: Performed By: #### 1 15448 #### [facility] [address] [place] [address] Structural Engineering Drafting Officer: Pollo Agarwal MD UAon 06-22-2022 Appearance, U Clear Normal [facility] Comment on above: Performed By: #### 1 81592 #### [facility] [address] [place] [address] Structural Engineering Drafting Officer: Pollo Agarwal MD Bilirubin, U Negative Normal Negative [facility] Comment on above: Performed By: #### 1 85502 #### [facility] [address] [place] [address] Structural Engineering Drafting Officer: Pollo Agarwal MD Blood, U Negative Normal Negative [facility] Comment on above: Performed By: #### 1 15742 #### [facility] [address] [place] [address] Structural Engineering Drafting Officer: Pollo Agarwal MD Color, U Yellow Normal [facility] Comment on above: Performed By: #### 1 32111 #### [facility] [address] [place] [address] Structural Engineering Drafting Officer: Pollo Agarwal MD Glucose Qual, U Negative Normal Negative [facility] Comment on above: Performed By: #### 1 78355 #### [facility] [address] [place] [address] Structural Engineering Drafting Officer: Pollo Agarwal MD Ketones, U 40 mg/dl Abnormal Negative [facility] Comment on above: Performed By: #### 1 00613 #### [facility] [address] [place] [address] 7[address] Structural Engineering Drafting Officer: Pollo Agarwal MD Leukocyte Esterase, U Negative Normal Negative [facility] Comment on above: Performed By: #### 1 96970 #### [facility] [address] [place] [address] Structural Engineering Drafting Officer: Pollo Agarwal MD Nitrite, U Negative Normal Negative [facility] Comment on above: Performed By: #### 1 27324 #### [facility] [address] [place] [address] Structural Engineering Drafting Officer: Pollo Agarwal MD pH, U 8.5 Normal 4.5-8.0 [facility] Comment on above: Performed By: #### 1 86197 #### [facility] [address] [place] [address] Structural Engineering Drafting Officer: Pollo Agarwal MD Protein, U Negative Normal Negative [facility] Comment on above: Performed By: #### 1 78746 #### [facility] [address] [place] [address] Structural Engineering Drafting Officer: Pollo Agarwal MD Specific Minerva, U 1.020 Normal 1.001-1.035 [facility] Comment on above: Performed By: #### 1 91293 #### [facility] [address] [place] [address] Structural Engineering Drafting Officer: Pollo Agarwal MD U MICRO Not Indicated Normal [facility] Comment on above: Performed By: #### 1 34922 #### [facility] [address] [place] [address] Structural Engineering Drafting Officer: Pollo Agarwal MD Urobilinogen Qual, U 0.2 EU/dl Normal 0.1-1.0 mg/dl [facility] Comment on above: Result Comment: EU/d l and mg/dl are equivalent units. Performed By: #### 1 79431 #### [facility] [address] [place] [address] Structural Engineering Drafting Officer: Pollo Agarwal MD Absolute lymphocyte countOrd ered By: Dr. White on 06-15-2022 Lymphocytes Auto (Unsp spec) [#/Vol] 2.14 10*3/uL 0.83-4.51 [facility] Basophil percentageOrdered B y: Dr. White on 06-15-2022 Basophils/100 WBC (Bld) 0.5 % 0-1 [facility] Bilirubin [Mass/Vol] 0.50 mg/dL 0.20-1.00 [facility] Comment on above: For patients on eltr ombopag therapy, use of Dimension Stringer TBIL is not recommended. Chloride [Moles/Vol] 110 mmol/L 98-107 [facility] Eosinophils/100 WBC (Bld) 1.2 % 0-5 [facility] Glucose [Mass/Vol] 108 mg/dL 74-106 [facility] Comment on above: Fasting Glucose resu lt from 100 to 125 mg/dL suggests IMPAIRED HOMEOSTASIS per A.D.A. criteria. Neutrophils (Bld) [#/Vol] 8.9 10*3/uL 2.0-7.7 [facility] Neutrophils/100 WBC (Bld) 73.9 % 47-70 [facility] Potassium [Moles/Vol] 4.1 mmol/L 3.5-5.1 [facility] Protein [Mass/Vol] 7.6 g/dL 6.4-8.2 [facility] Sodium [Moles/Vol] 140 mmol/L 136-145 [facility] WBC (Bld) [#/Vol] 12.1 10*3/uL 4.4-11.0 [facility] Blood erythrocytes count (nu mber/volume)Ordered By: Dr. White on 06-15-2022 RBC (Bld) [#/Vol] 4.94 10*6/uL 4.6-6.2 [facility] Blood hemoglobin measurement (mass/volume)Ordered By: Dr. White on 06-15-2022 Hemoglobin (Bld) [Mass/Vol] 15.3 g/dL 13.0-16.5 [facility] Blood lymphocytes/100 leukoc ytesOrdered By: Dr. White on 06-15-2022 Lymphocytes/100 WBC (Bld) 17.7 % 19-41 [facility] Blood monocytes/100 leukocyt esOrdered By: Dr. White on 06-15-2022 Monocytes/100 WBC (Bld) 6.4 % 0-10 [facility] Blood platelet mean volumeOr dered By: Dr. White on 06-15-2022 Platelet mean volume (Bld) [Entitic vol] 9.6 fL 6.2-12.0 [facility] Determination of erythrocyte mean corpuscular volume (MCV)Ordered By: Dr. White on 06-15-2022 MCV (RBC) [Entitic vol] 91.5 fL 80-94 [facility] Hematocrit Auto (Bld) [Volum e fraction]Ordered By: Dr. White on 06-15-2022 Hematocrit (Bld) [Volume fraction] 45.2 % 40-54 [facility] Laboratory - Chemistry and C hemistry - challengeOrdered By: Dr. White on 06-15-2022 ALP [Catalytic activity/Vol] 56 U/L 45-117 [facility] ALT [Catalytic activity/Vol] 22 U/L 16-61 [facility] CO2 [Moles/Vol] 22.0 mmol/L 21.0-32.0 [facility] Globulin (S) [Mass/Vol] 3.5 g/dL 2.2-4.2 [facility] Lipase [Catalytic activity/Vol] 79 U/L 73-393 [facility] Urea nitrogen/Creatinine [Mass ratio] 6.2 mg/mg 10-20 [facility] - Hematology and Cell countsOrdered By: Dr. White on 06-15-2022 Erythrocyte distribution width (RBC) [Entitic vol] 42.5 fL 35.1-43.9 [facility] Erythrocyte distribution width (RBC) [Ratio] 12.7 % 11.6-14.6 [facility] Immature granulocytes/100 WBC (Bld) 0.300 % 0.0-0.9 [facility] Comment on above: IG% - Immature Granu locytes (promyelocytes, myelocytes and metamyelocytes) > 1% indicates that a LEFT SHIFT is Present. MCH (RBC) [Entitic mass] 31.0 pg 27.0-32.0 [facility] Nucleated RBC/100 WBC (Bld) [Ratio] 0 % 0-5 [facility] MCHC Auto (RBC) [Mass/Vol]Or dered By: Dr. White on 06-15-2022 MCHC (RBC) [Mass/Vol] 33.8 g/dL 32-36 [facility] No Panel InformationOrdered By: Dr. White on 06-15-2022 Estimated Creatinine Clearance Calc 113.38 ml/min [facility] Estimated GFR (MDRD) Amer 118 mL/min >60 [facility] Comment on above: GFR Calc Estimated GFR (MDRD) Non-Af Amer 97 mL/min >60 [facility] Comment on above: Non- GFR Calc Platelets bldOrdered By: Dr. White on 06-15-2022 Platelets (Bld) [#/Vol] 323 10*3/uL 150-450 [facility] Serum or plasma albumin ruth urement (mass/volume)Ordered By: Dr. White on 06-15-2022 Albumin [Mass/Vol] 4.1 g/dL 3.2-5.0 [facility] Serum or plasma albumin/glob ulin mass ratioOrdered By: Dr. White on 06-15-2022 Albumin/Globulin [Mass ratio] 1.2 {ratio} 0.9-2.4 [facility] Serum or plasma calcium ruth urement (mass/volume)Ordered By: Dr. White on 06-15-2022 Calcium [Mass/Vol] 9.5 mg/dL 8.5-10.1 [facility] Serum or plasma creatinine m easurement (mass/volume)Ordered By: Dr. White on 06-15-2022 Creatinine [Mass/Vol] 0.97 mg/dL 0.70-1.30 [facility] Comment on above: The validity of the calculated GFR & GFRAA in patients over 70 years has not been determined. Clinical correlation is essential. Serum or plasma urea nitroge n measurement (mass/volume)Ordered By: Dr. White on 06-15-2022 Urea nitrogen [Mass/Vol] 6 mg/dL 7-18 [facility] Thin prep Papanicolaou smear with manual screeningOrdered By: Dr. White on 06-15-2022 Thin prep Papanicolaou smear with manual screening 16 U/L 15-37 [facility] Thin prep Papanicolaou smear with manual screening 8 5-15 [facility] Absolute lymphocyte countOrd ered By: Dr. Dodge on 06-10-2022 Lymphocytes Auto (Unsp spec) [#/Vol] 2.14 10*3/uL 0.83-4.51 [facility] Basophil percentageOrdered B y: Dr. Dodge on 06-10-2022 Basophils/100 WBC (Bld) 0.8 % 0-1 [facility] Bilirubin [Mass/Vol] 0.40 mg/dL 0.20-1.00 [facility] [facility] Comment on above: For patients on eltr ombopag therapy, use of Dimension Stringer TBIL is not recommended. Chloride [Moles/Vol] 109 mmol/L 98-107 [facility] Eosinophils/100 WBC (Bld) 2.4 % 0-5 [facility] Glucose [Mass/Vol] 106 mg/dL 74-106 [facility] Comment on above: Fasting Glucose resu lt from 100 to 125 mg/dL suggests IMPAIRED HOMEOSTASIS per A.D.A. criteria. Neutrophils (Bld) [#/Vol] 4.5 10*3/uL 2.0-7.7 [facility] Neutrophils/100 WBC (Bld) 61.2 % 47-70 [facility] Potassium [Moles/Vol] 4.1 mmol/L 3.5-5.1 [facility] Protein [Mass/Vol] 7.2 g/dL 6.4-8.2 [facility] Sodium [Moles/Vol] 140 mmol/L 136-145 [facility] WBC (Bld) [#/Vol] 7.4 10*3/uL 4.4-11.0 [facility] Blood erythrocytes count (nu mber/volume)Ordered By: Dr. Dodge on 06-10-2022 RBC (Bld) [#/Vol] 4.88 10*6/uL 4.6-6.2 [facility] Blood hemoglobin measurement (mass/volume)Ordered By: Dr. Dodge on 06-10-2022 Hemoglobin (Bld) [Mass/Vol] 15.2 g/dL 13.0-16.5 [facility] Blood lymphocytes/100 leukoc ytesOrdered By: Dr. Dodge on 06-10-2022 Lymphocytes/100 WBC (Bld) 28.8 % 19-41 [facility] Blood monocytes/100 leukocyt esOrdered By: Dr. Dodge on 06-10-2022 Monocytes/100 WBC (Bld) 6.5 % 0-10 [facility] Blood platelet mean volumeOr dered By: Dr. Dodge on 06-10-2022 Platelet mean volume (Bld) [Entitic vol] 9.7 fL 6.2-12.0 [facility] Determination of erythrocyte mean corpuscular volume (MCV)Ordered By: Dr. Dodge on 06-10-2022 MCV (RBC) [Entitic vol] 92.2 fL 80-94 [facility] Hematocrit Auto (Bld) [Volum e fraction]Ordered By: Dr. Dodge on 06-10-2022 Hematocrit (Bld) [Volume fraction] 45.0 % 40-54 [facility] Laboratory - Chemistry and C hemistry - challengeOrdered By: Dr. Dodge on 06-10-2022 ALP [Catalytic activity/Vol] 57 U/L 45-117 [facility] ALT [Catalytic activity/Vol] 27 U/L 16-61 [facility] CO2 [Moles/Vol] 24.0 mmol/L 21.0-32.0 [facility] Globulin (S) [Mass/Vol] 3.6 g/dL 2.2-4.2 [facility] Lipase [Catalytic activity/Vol] 86 U/L 73-393 [facility] Urea nitrogen/Creatinine [Mass ratio] 4.6 mg/mg 10-20 [facility] Laboratory - Hematology and Cell countsOrdered By: Dr. Dodge on 06-10-2022 Erythrocyte distribution width (RBC) [Entitic vol] 43.5 fL 35.1-43.9 [facility] Erythrocyte distribution width (RBC) [Ratio] 12.8 % 11.6-14.6 [facility] Immature granulocytes/100 WBC (Bld) 0.300 % 0.0-0.9 [facility] Comment on above: IG% - Immature Granu locytes (promyelocytes, myelocytes and metamyelocytes) > 1% indicates that a LEFT SHIFT is Present. MCH (RBC) [Entitic mass] 31.1 pg 27.0-32.0 [facility] Nucleated RBC/100 WBC (Bld) [Ratio] 0 % 0-5 [facility] MCHC Auto (RBC) [Mass/Vol]Or dered By: Dr. Dodge on 06-10-2022 MCHC (RBC) [Mass/Vol] 33.8 g/dL 32-36 [facility] No Panel InformationOrdered By: Dr. Dodge on 06-10-2022 Estimated Creatinine Clearance Calc 100.90 ml/min [facility] Estimated GFR (MDRD) Amer 103 mL/min >60 [facility] Comment on above: GFR Calc Estimated GFR (MDRD) Non-Af Amer 85 mL/min >60 [facility] Comment on above: Non- GFR Calc Platelets bldOrdered By: Dr. Dodge on 06-10-2022 Platelets (Bld) [#/Vol] 317 10*3/uL 150-450 [facility] Serum or plasma albumin ruth urement (mass/volume)Ordered By: Dr. Dodge on 06-10-2022 Albumin [Mass/Vol] 3.6 g/dL 3.2-5.0 [facility] Serum or plasma albumin/glob ulin mass ratioOrdered By: Dr. Dodge on 06-10-2022 Albumin/Globulin [Mass ratio] 1.0 {ratio} 0.9-2.4 [facility] Serum or plasma calcium ruth urement (mass/volume)Ordered By: Dr. Dodge on 06-10-2022 Calcium [Mass/Vol] 9.4 mg/dL 8.5-10.1 [facility] Serum or plasma creatinine m easurement (mass/volume)Ordered By: Dr. Dodge on 06-10-2022 Creatinine [Mass/Vol] 1.09 mg/dL 0.70-1.30 [facility] Comment on above: The validity of the calculated GFR & GFRAA in patients over 70 years has not been determined. Clinical correlation is essential. Serum or plasma urea nitroge n measurement (mass/volume)Ordered By: Dr. Dodge on 06-10-2022 Urea nitrogen [Mass/Vol] 5 mg/dL 7-18 [facility] Thin prep Papanicolaou smear with manual screeningOrdered By: Dr. Dodge on 06-10-2022 Thin prep Papanicolaou smear with manual screening 15 U/L 15-37 [facility] Thin prep Papanicolaou smear with manual screening 7 5-15 [facility] Basophil percentageOrdered B y: Dr. Stacy on 05-27-2022 Chloride [Moles/Vol] 109 mmol/L 98-107 [facility] Glucose [Mass/Vol] 126 mg/dL 74-106 [facility] Comment on above: Fasting Glucose resu lt greater than or equal to 126 mg/dL suggests DIABETES MELLITUS per A.D.A. criteria. Potassium [Moles/Vol] 3.7 mmol/L 3.5-5.1 [facility] Sodium [Moles/Vol] 141 mmol/L 136-145 [facility] Laboratory - Chemistry and C hemistry - challengeOrdered By: Dr. Stacy on 05-27-2022 CO2 [Moles/Vol] 23.0 mmol/L 21.0-32.0 [facility] Urea nitrogen/Creatinine [Mass ratio] 6.5 mg/mg 10-20 [facility] No Panel InformationOrdered By: Dr. Stacy on 05-27-2022 Estimated Creatinine Clearance Calc 105.14 ml/min [facility] Estimated GFR (MDRD) Amer 104 mL/min >60 [facility] Comment on above: GFR Calc Estimated GFR (MDRD) Non-Af Amer 86 mL/min >60 [facility] Comment on above: Non- GFR Calc Serum or plasma calcium ruth urement (mass/volume)Ordered By: Dr. Stacy on 05-27-2022 Calcium [Mass/Vol] 9.0 mg/dL 8.5-10.1 [facility] Serum or plasma creatinine m easurement (mass/volume)Ordered By: Dr. Stacy on 05-27-2022 Creatinine [Mass/Vol] 1.08 mg/dL 0.70-1.30 [facility] Comment on above: The validity of the calculated GFR & GFRAA in patients over 70 years has not been determined. Clinical correlation is essential. Serum or plasma urea nitroge n measurement (mass/volume)Ordered By: Dr. Stacy on 05-27-2022 Urea nitrogen [Mass/Vol] 7 mg/dL 7-18 [facility] Thin prep Papanicolaou smear with manual screeningOrdered By: Dr. Stacy on 05-27-2022 Thin prep Papanicolaou smear with manual screening 9 5-15 [facility] Absolute lymphocyte countOrd ered By: Dr. Mendoza on 05-05-2022 Lymphocytes Auto (Unsp spec) [#/Vol] 1.02 10*3/uL 0.83-4.51 [facility] Basophil percentageOrdered B y: Dr. Mendoza on 05-05-2022 Basophils/100 WBC (Bld) 0.1 % 0-1 [facility] Bilirubin [Mass/Vol] 0.40 mg/dL 0.20-1.00 [facility] Comment on above: For patients on eltr ombopag therapy, use of Dimension Stringer TBIL is not recommended. Chloride [Moles/Vol] 107 mmol/L 98-107 [facility] Eosinophils/100 WBC (Bld) 0.0 % 0-5 [facility] Glucose [Mass/Vol] 155 mg/dL 74-106 [facility] Comment on above: Fasting Glucose resu lt greater than or equal to 126 mg/dL suggests DIABETES MELLITUS per A.D.A. criteria. Neutrophils (Bld) [#/Vol] 6.6 10*3/uL 2.0-7.7 [facility] Neutrophils/100 WBC (Bld) 83.4 % 47-70 [facility] Potassium [Moles/Vol] 3.5 mmol/L 3.5-5.1 [facility] Protein [Mass/Vol] 8.1 g/dL 6.4-8.2 [facility] Sodium [Moles/Vol] 138 mmol/L 136-145 [facility] WBC (Bld) [#/Vol] 8.0 10*3/uL 4.4-11.0 [facility] Blood erythrocytes count (nu mber/volume)Ordered By: Dr. Mendoza on 05-05-2022 RBC (Bld) [#/Vol] 4.68 10*6/uL 4.6-6.2 [facility] Blood hemoglobin measurement (mass/volume)Ordered By: Dr. Mendoza on 05-05-2022 Hemoglobin (Bld) [Mass/Vol] 14.2 g/dL 13.0-16.5 [facility] Blood lymphocytes/100 leukoc ytesOrdered By: Dr. Mendoza on 05-05-2022 Lymphocytes/100 WBC (Bld) 12.8 % 19-41 [facility] Blood monocytes/100 leukocyt esOrdered By: Dr. Mendoza on 05-05-2022 Monocytes/100 WBC (Bld) 3.3 % 0-10 [facility] Blood platelet mean volumeOr dered By: Dr. Mendoza on 05-05-2022 Platelet mean volume (Bld) [Entitic vol] 10.1 fL 6.2-12.0 [facility] Determination of erythrocyte mean corpuscular volume (MCV)Ordered By: Dr. Mendoza on 05-05-2022 MCV (RBC) [Entitic vol] 90.2 fL 80-94 [facility] Direct bilirubinOrdered By: Dr. Mendoza on 05-05-2022 Bilirubin.direct [Mass/Vol] 0.12 mg/dL 0.00-0.30 [facility] Hematocrit Auto (Bld) [Volum e fraction]Ordered By: Dr. Mendoza on 05-05-2022 Hematocrit (Bld) [Volume fraction] 42.2 % 40-54 [facility] Laboratory - Chemistry and C hemistry - challengeOrdered By: Dr. Mendoza on 05-05-2022 ALP [Catalytic activity/Vol] 70 U/L 45-117 [facility] ALT [Catalytic activity/Vol] 28 U/L 16-61 [facility] CO2 [Moles/Vol] 23.0 mmol/L 21.0-32.0 [facility] Globulin (S) [Mass/Vol] 3.9 g/dL 2.2-4.2 [facility] Lipase [Catalytic activity/Vol] 65 U/L 73-393 [facility] Urea nitrogen/Creatinine [Mass ratio] 8.4 mg/mg 10-20 [facility] Laboratory - Hematology and Cell countsOrdered By: Dr. Mendoza on 05-05-2022 Erythrocyte distribution width (RBC) [Entitic vol] 38.9 fL 35.1-43.9 [facility] Erythrocyte distribution width (RBC) [Ratio] 11.9 % 11.6-14.6 [facility] Immature granulocytes/100 WBC (Bld) 0.400 % 0.0-0.9 [facility] Comment on above: IG% - Immature Granu locytes (promyelocytes, myelocytes and metamyelocytes) > 1% indicates that a LEFT SHIFT is Present. MCH (RBC) [Entitic mass] 30.3 pg 27.0-32.0 [facility] Nucleated RBC/100 WBC (Bld) [Ratio] 0 % 0-5 [facility] MCHC Auto (RBC) [Mass/Vol]Or dered By: Dr. Mendoza on 05-05-2022 MCHC (RBC) [Mass/Vol] 33.6 g/dL 32-36 [facility] No Panel InformationOrdered By: Dr. Mendoza on 05-05-2022 Estimated Creatinine Clearance Calc 102.78 ml/min [facility] Estimated GFR (MDRD) Amer 105 mL/min >60 [facility] Comment on above: GFR Calc Estimated GFR (MDRD) Non-Af Amer 87 mL/min >60 [facility] Comment on above: Non- GFR Calc Platelets bldOrdered By: Dr. Mendoza on 05-05-2022 Platelets (Bld) [#/Vol] 280 10*3/uL 150-450 [facility] Serum or plasma albumin ruth urement (mass/volume)Ordered By: Dr. Mendoza on 05-05-2022 Albumin [Mass/Vol] 4.2 g/dL 3.2-5.0 [facility] Serum or plasma calcium ruth urement (mass/volume)Ordered By: Dr. Mendoza on 05-05-2022 Calcium [Mass/Vol] 9.7 mg/dL 8.5-10.1 [facility] Serum or plasma creatinine m easurement (mass/volume)Ordered By: Dr. eMndoza on 05-05-2022 Creatinine [Mass/Vol] 1.07 mg/dL 0.70-1.30 [facility] Comment on above: The validity of the calculated GFR & GFRAA in patients over 70 years has not been determined. Clinical correlation is essential. Serum or plasma urea nitroge n measurement (mass/volume)Ordered By: Dr. Mendoza on 05-05-2022 Urea nitrogen [Mass/Vol] 9 mg/dL 7-18 [facility] Thin prep Papanicolaou smear with manual screeningOrdered By: Dr. Mendoza on 05-05-2022 Thin prep Papanicolaou smear with manual screening 16 U/L 15-37 [facility] Thin prep Papanicolaou smear with manual screening 8 5-15 [facility] Influenza virus A and B RNA and SARS-CoV-2 (COVID-19) N gene panel LATOYA+probe (Resp)on 05-01-2022 FLUAV RNA LATOYA+probe Ql (Unsp spec) Positive Abnormal Negative for Influenza A by RT-PCR [facility] FLUBV RNA LATOYA+probe Ql (Unsp spec) Negative Negative for Influenza B by RT-PCR [facility] SARS-CoV-2 (COVID-19) RNA LATOYA+probe Ql (Resp) SARS-CoV-2 (Agent of COVID-19) Not Detected by RT-PCR or equivalent method. Not Detected [facility] Absolute lymphocyte countOrd ered By: Dr. White on 03-09-2022 Lymphocytes Auto (Unsp spec) [#/Vol] 1.66 10*3/uL 0.83-4.51 [facility] Basophil percentageOrdered B y: Dr. White on 03-09-2022 Basophils/100 WBC (Bld) 0.3 % 0-1 [facility] Bilirubin [Mass/Vol] 0.30 mg/dL 0.20-1.00 [facility] Comment on above: For patients on eltr ombopag therapy, use of Dimension Stringer TBIL is not recommended. Chloride [Moles/Vol] 108 mmol/L 98-107 [facility] Eosinophils/100 WBC (Bld) 0.5 % 0-5 [facility] Glucose [Mass/Vol] 123 mg/dL 74-106 [facility] Comment on above: Fasting Glucose resu lt from 100 to 125 mg/dL suggests IMPAIRED HOMEOSTASIS per A.D.A. criteria. Neutrophils (Bld) [#/Vol] 12.5 10*3/uL 2.0-7.7 [facility] Neutrophils/100 WBC (Bld) 82.8 % 47-70 [facility] Potassium [Moles/Vol] 3.7 mmol/L 3.5-5.1 [facility] Protein [Mass/Vol] 8.1 g/dL 6.4-8.2 [facility] Sodium [Moles/Vol] 138 mmol/L 136-145 [facility] WBC (Bld) [#/Vol] 15.1 10*3/uL 4.4-11.0 [facility] Blood erythrocytes count (nu mber/volume)Ordered By: Dr. White on 03-09-2022 RBC (Bld) [#/Vol] 4.59 10*6/uL 4.6-6.2 [facility] Blood hemoglobin measurement (mass/volume)Ordered By: Dr. White on 03-09-2022 Hemoglobin (Bld) [Mass/Vol] 14.3 g/dL 13.0-16.5 [facility] Blood lymphocytes/100 leukoc ytesOrdered By: Dr. White on 03-09-2022 Lymphocytes/100 WBC (Bld) 11.0 % 19-41 [facility] Blood monocytes/100 leukocyt esOrdered By: Dr. White on 03-09-2022 Monocytes/100 WBC (Bld) 4.9 % 0-10 [facility] Blood platelet mean volumeOr dered By: Dr. White on 03-09-2022 Platelet mean volume (Bld) [Entitic vol] 9.8 fL 6.2-12.0 [facility] Determination of erythrocyte mean corpuscular volume (MCV)Ordered By: Dr. White on 03-09-2022 MCV (RBC) [Entitic vol] 91.5 fL 80-94 [facility] Hematocrit Auto (Bld) [Volum e fraction]Ordered By: Dr. White on 03-09-2022 Hematocrit (Bld) [Volume fraction] 42.0 % 40-54 [facility] Laboratory - Chemistry and C hemistry - challengeOrdered By: Dr. White on 03-09-2022 ALP [Catalytic activity/Vol] 65 U/L 45-117 [facility] ALT [Catalytic activity/Vol] 28 U/L 16-61 [facility] CO2 [Moles/Vol] 20.0 mmol/L 21.0-32.0 [facility] Globulin (S) [Mass/Vol] 3.8 g/dL 2.2-4.2 [facility] Lipase [Catalytic activity/Vol] 98 U/L 73-393 [facility] Urea nitrogen/Creatinine [Mass ratio] 9.0 mg/mg 10-20 [facility] Laboratory - Hematology and Cell countsOrdered By: Dr. White on 03-09-2022 Erythrocyte distribution width (RBC) [Entitic vol] 41.8 fL 35.1-43.9 [facility] Erythrocyte distribution width (RBC) [Ratio] 12.5 % 11.6-14.6 [facility] Immature granulocytes/100 WBC (Bld) 0.500 % 0.0-0.9 [facility] Comment on above: IG% - Immature Granu locytes (promyelocytes, myelocytes and metamyelocytes) > 1% indicates that a LEFT SHIFT is Present. MCH (RBC) [Entitic mass] 31.2 pg 27.0-32.0 [facility] Nucleated RBC/100 WBC (Bld) [Ratio] 0 % 0-5 [facility] MCHC Auto (RBC) [Mass/Vol]Or dered By: Dr. White on 03-09-2022 MCHC (RBC) [Mass/Vol] 34.0 g/dL 32-36 [facility] No Panel InformationOrdered By: Dr. White on 03-09-2022 Estimated Creatinine Clearance Calc 99.08 ml/min [facility] Estimated GFR (MDRD) Amer 101 mL/min >60 [facility] Comment on above: GFR Calc Estimated GFR (MDRD) Non-Af Amer 83 mL/min >60 [facility] Comment on above: Non- GFR Calc Platelets bldOrdered By: Dr. White on 03-09-2022 Platelets (Bld) [#/Vol] 309 10*3/uL 150-450 [facility] Serum or plasma albumin ruth urement (mass/volume)Ordered By: Dr. White on 03-09-2022 Albumin [Mass/Vol] 4.3 g/dL 3.2-5.0 [facility] Serum or plasma albumin/glob ulin mass ratioOrdered By: Dr. White on 03-09-2022 Albumin/Globulin [Mass ratio] 1.1 {ratio} 0.9-2.4 [facility] Serum or plasma calcium ruth urement (mass/volume)Ordered By: Dr. White on 03-09-2022 Calcium [Mass/Vol] 9.9 mg/dL 8.5-10.1 [facility] Serum or plasma creatinine m easurement (mass/volume)Ordered By: Dr. White on 03-09-2022 Creatinine [Mass/Vol] 1.11 mg/dL 0.70-1.30 [facility] Comment on above: The validity of the calculated GFR & GFRAA in patients over 70 years has not been determined. Clinical correlation is essential. Serum or plasma urea nitroge n measurement (mass/volume)Ordered By: Dr. White on 03-09-2022 Urea nitrogen [Mass/Vol] 10 mg/dL 7-18 [facility] Thin prep Papanicolaou smear with manual screeningOrdered By: Dr. White on 03-09-2022 Thin prep Papanicolaou smear with manual screening 17 U/L 15-37 [facility] Thin prep Papanicolaou smear with manual screening 10 5-15 [facility] Absolute lymphocyte countOrd ered By: Dr. Wilson on 02-27-2022 Lymphocytes Auto (Unsp spec) [#/Vol] 1.14 10*3/uL 0.83-4.51 [facility] Basophil percentageOrdered B y: Dr. Wilson on 02-27-2022 Basophil percentage 0 SEEN /hpf 0-5 [facility] Basophils/100 WBC (Bld) 0.3 % 0-1 [facility] Bilirubin [Mass/Vol] 0.50 mg/dL 0.20-1.00 [facility] Comment on above: For patients on eltr ombopag therapy, use of Dimension Stringer TBIL is not recommended. Chloride [Moles/Vol] 106 mmol/L 98-107 [facility] Eosinophils/100 WBC (Bld) 0.1 % 0-5 [facility] Glucose [Mass/Vol] 127 mg/dL 74-106 [facility] Comment on above: Fasting Glucose resu lt greater than or equal to 126 mg/dL suggests DIABETES MELLITUS per A.D.A. criteria. Neutrophils (Bld) [#/Vol] 10.8 10*3/uL 2.0-7.7 [facility] Neutrophils/100 WBC (Bld) 87.0 % 47-70 [facility] Potassium [Moles/Vol] 3.5 mmol/L 3.5-5.1 [facility] Protein [Mass/Vol] 8.0 g/dL 6.4-8.2 [facility] Sodium [Moles/Vol] 141 mmol/L 136-145 [facility] WBC (Bld) [#/Vol] 12.5 10*3/uL 4.4-11.0 [facility] Bilirubin Test strip Ql (U)O rdered By: Dr. Wilson on 02-27-2022 Bilirubin Ql (U) Negative Negative [facility] Blood erythrocytes count (nu mber/volume)Ordered By: Dr. Wilson on 02-27-2022 RBC (Bld) [#/Vol] 4.78 10*6/uL 4.6-6.2 [facility] Blood hemoglobin measurement (mass/volume)Ordered By: Dr. Wilson on 02-27-2022 Hemoglobin (Bld) [Mass/Vol] 14.7 g/dL 13.0-16.5 [facility] Blood lymphocytes/100 leukoc ytesOrdered By: Dr. Wilson on 02-27-2022 Lymphocytes/100 WBC (Bld) 9.2 % 19-41 [facility] Blood monocytes/100 leukocyt esOrdered By: Dr. Wilson on 02-27-2022 Monocytes/100 WBC (Bld) 3.1 % 0-10 [facility] Blood platelet mean volumeOr dered By: Dr. Wilson on 02-27-2022 Platelet mean volume (Bld) [Entitic vol] 9.8 fL 6.2-12.0 [facility] Determination of erythrocyte mean corpuscular volume (MCV)Ordered By: Dr. Wilson on 02-27-2022 MCV (RBC) [Entitic vol] 91.4 fL 80-94 [facility] Hematocrit Auto (Bld) [Volum e fraction]Ordered By: Dr. Wilson on 02-27-2022 Hematocrit (Bld) [Volume fraction] 43.7 % 40-54 [facility] Ketones Test strip Ql (U)Ord ered By: Dr. Wilson on 02-27-2022 Ketones Ql (U) 15 mg/dl Negative [facility] Laboratory - Chemistry and C hemistry - challengeOrdered By: Dr. Wilson on 02-27-2022 ALP [Catalytic activity/Vol] 69 U/L 45-117 [facility] ALT [Catalytic activity/Vol] 48 U/L 16-61 [facility] CO2 [Moles/Vol] 20.0 mmol/L 21.0-32.0 [facility] Globulin (S) [Mass/Vol] 3.8 g/dL 2.2-4.2 [facility] Lipase [Catalytic activity/Vol] 58 U/L 73-393 [facility] Urea nitrogen/Creatinine [Mass ratio] 7.6 mg/mg 10-20 [facility] Laboratory - Hematology and Cell countsOrdered By: Dr. Wilson on 02-27-2022 Erythrocyte distribution width (RBC) [Entitic vol] 43.2 fL 35.1-43.9 [facility] Erythrocyte distribution width (RBC) [Ratio] 12.8 % 11.6-14.6 [facility] Immature granulocytes/100 WBC (Bld) 0.300 % 0.0-0.9 [facility] Comment on above: IG% - Immature Granu locytes (promyelocytes, myelocytes and metamyelocytes) > 1% indicates that a LEFT SHIFT is Present. MCH (RBC) [Entitic mass] 30.8 pg 27.0-32.0 [facility] Nucleated RBC/100 WBC (Bld) [Ratio] 0 % 0-5 [facility] MCHC Auto (RBC) [Mass/Vol]Or dered By: Dr. Wilson on 02-27-2022 MCHC (RBC) [Mass/Vol] 33.6 g/dL 32-36 [facility] Mucus LM Ql (Urine sed)Order ed By: Dr. Wilson on 02-27-2022 Mucus Ql (Urine sed) 0 SEEN /hpf [facility] Nitrite Test strip Ql (U)Ord ered By: Dr. Wilson on 02-27-2022 Nitrite Ql (U) Negative Negative [facility] No Panel InformationOrdered By: Dr. Wilson on 02-27-2022 Estimated Creatinine Clearance Calc 104.74 ml/min [facility] Estimated GFR (MDRD) Amer 108 mL/min >60 [facility] Comment on above: GFR Calc Estimated GFR (MDRD) Non-Af Amer 89 mL/min >60 [facility] Comment on above: Non- GFR Calc Platelets bldOrdered By: Dr. Wilson on 02-27-2022 Platelets (Bld) [#/Vol] 276 10*3/uL 150-450 [facility] Protein Test strip Ql (U)Ord ered By: Dr. Wilson on 02-27-2022 Protein Ql (U) Negative Negative [facility] Serum or plasma albumin ruth urement (mass/volume)Ordered By: Dr. Wilson on 02-27-2022 Albumin [Mass/Vol] 4.2 g/dL 3.2-5.0 [facility] Serum or plasma albumin/glob ulin mass ratioOrdered By: Dr. Wilson on 02-27-2022 Albumin/Globulin [Mass ratio] 1.1 {ratio} 0.9-2.4 [facility] Serum or plasma calcium ruth urement (mass/volume)Ordered By: Dr. Wilson on 02-27-2022 Calcium [Mass/Vol] 10.0 mg/dL 8.5-10.1 [facility] Serum or plasma creatinine m easurement (mass/volume)Ordered By: Dr. Wilson on 02-27-2022 Creatinine [Mass/Vol] 1.05 mg/dL 0.70-1.30 [facility] Comment on above: The validity of the calculated GFR & GFRAA in patients over 70 years has not been determined. Clinical correlation is essential. Serum or plasma urea nitroge n measurement (mass/volume)Ordered By: Dr. Wilson on 02-27-2022 Urea nitrogen [Mass/Vol] 8 mg/dL 7-18 [facility] Squamous epithelial cells de tection in urine sediment by light microscopyOrdered By: Dr. Wilson on 02-27-2022 Epithelial cells.squamous LM Ql (Urine sed) 0 SEEN /hpf 0-5 [facility] Thin prep Papanicolaou smear with manual screeningOrdered By: Dr. Wilson on 02-27-2022 Thin prep Papanicolaou smear with manual screening 35 U/L 15-37 [facility] Thin prep Papanicolaou smear with manual screening 15 5-15 [facility] Urine blood detectionOrdered By: Dr. Wilson on 02-27-2022 RBC Ql (U) Negative Negative [facility] RBC Ql (U) 0 SEEN /hpf 0-5 [facility] Urine clarityOrdered By: Dr. Wilson on 02-27-2022 Clarity (U) Clear Clear [facility] Urine color determinationOrd ered By: Dr. Wilson on 02-27-2022 Color (U) Yellow Yellow [facility] Urine glucose detectionOrder ed By: Dr. Wilson on 02-27-2022 Glucose Ql (U) Normal mg/dl Normal [facility] Urine leukocyte esterase det ection by dipstickOrdered By: Dr. Wilson on 02-27-2022 Leukocyte esterase Test strip Ql (U) Negative Negative [facility] Urine pHOrdered By: Dr. Adriana silva on 02-27-2022 pH (U) 8.0 [pH] 5.0 - 8.0 [facility] Urine sediment bacteria coun t by microscopy (number/high power field)Ordered By: Dr. Wilson on 02-27-2022 Bacteria LM.HPF (Urine sed) [#/Area] 0 /[HPF] None Seen [facility] Urine specific gravity measu rementOrdered By: Dr. Wilson on 02-27-2022 Specific gravity (U) [Rel density] 1.010 1.002-1.030 [facility] Urobilinogen Auto test strip Ql (U)Ordered By: Dr. Wilson on 02-27-2022 Urobilinogen Ql (U) Normal mg/dl Normal [facility] Absolute lymphocyte counton 01-09-2022 Lymphocytes Auto (Unsp spec) [#/Vol] 1.82 10*3/uL 0.83-4.51 [facility] Work Phone: Basophil percentageon 2021 Basophils/100 WBC (Bld) 0.6 % 0-1 [facility] Work Phone: Bilirubin [Mass/Vol] 0.30 mg/dL 0.20-1.00 [facility] Work Phone: Comment on above: For patients on eltr ombopag therapy, use of Dimension Stringer TBIL is not recommended. Chloride [Moles/Vol] 108 mmol/L 98-107 [facility] Work Phone: Eosinophils/100 WBC (Bld) 2.4 % 0-5 [facility] Work Phone: Glucose [Mass/Vol] 107 mg/dL 74-106 [facility] Work Phone: Comment on above: Fasting Glucose resu lt from 100 to 125 mg/dL suggests IMPAIRED HOMEOSTASIS per A.D.A. criteria. Neutrophils (Bld) [#/Vol] 7.5 10*3/uL 2.0-7.7 [facility] Work Phone: Neutrophils/100 WBC (Bld) 72.2 % 47-70 [facility] Work Phone: Potassium [Moles/Vol] 3.9 mmol/L 3.5-5.1 [facility] Work Phone: Comment on above: Slight Hemolysis, Re sult may be falsely increased. Protein [Mass/Vol] 8.2 g/dL 6.4-8.2 [facility] Work Phone: Sodium [Moles/Vol] 140 mmol/L 136-145 [facility] Work Phone: WBC (Bld) [#/Vol] 10.4 10*3/uL 4.4-11.0 [facility] Work Phone: Blood erythrocytes count (nu mber/volume)on 01-09-2022 RBC (Bld) [#/Vol] 4.97 10*6/uL 4.6-6.2 [facility] Work Phone: [phone] Blood hemoglobin measurement (mass/volume)on 01-09-2022 Hemoglobin (Bld) [Mass/Vol] 15.5 g/dL 13.0-16.5 [facility] Work Phone: [phone] Blood lymphocytes/100 leukoc yteson 01-09-2022 Lymphocytes/100 WBC (Bld) 17.5 % 19-41 [facility] Work Phone: [phone] Blood monocytes/100 leukocyt eson 01-09-2022 Monocytes/100 WBC (Bld) 6.8 % 0-10 [facility] Work Phone: [phone] Blood platelet mean volumeon 01-09-2022 Platelet mean volume (Bld) [Entitic vol] 9.6 fL 6.2-12.0 [facility] Work Phone: Determination of erythrocyte mean corpuscular volume (MCV)on 01-09-2022 MCV (RBC) [Entitic vol] 91.1 fL 80-94 [facility] Work Phone: [phone] Hematocrit Auto (Bld) [Volum e fraction]on 01-09-2022 Hematocrit (Bld) [Volume fraction] 45.3 % 40-54 [facility] Work Phone: Laboratory - Chemistry and C hemistry - challengeon 01-09-2022 ALP [Catalytic activity/Vol] 67 U/L 45-117 [facility] Work Phone: [phone] ALT [Catalytic activity/Vol] 30 U/L 16-61 [facility] Work Phone: [phone] CO2 [Moles/Vol] 22.0 mmol/L 21.0-32.0 [facility] Work Phone: [phone] Globulin (S) [Mass/Vol] 3.8 g/dL 2.2-4.2 [facility] Work Phone: [phone] Lipase [Catalytic activity/Vol] 122 U/L 73-393 [facility] Work Phone: [phone] Urea nitrogen/Creatinine [Mass ratio] 7.3 mg/mg 10-20 [facility] Work Phone: [phone] Laboratory - Hematology and Cell countson 01-09-2022 Erythrocyte distribution width (RBC) [Entitic vol] 41.1 fL 35.1-43.9 [facility] Work Phone: [phone] Erythrocyte distribution width (RBC) [Ratio] 12.4 % 11.6-14.6 [facility] Work Phone: [phone] Immature granulocytes/100 WBC (Bld) 0.500 % 0.0-0.9 [facility] Work Phone: [phone] Comment on above: IG% - Immature Granu locytes (promyelocytes, myelocytes and metamyelocytes) > 1% indicates that a LEFT SHIFT is Present. MCH (RBC) [Entitic mass] 31.2 pg 27.0-32.0 [facility] Work Phone: [phone] Nucleated RBC/100 WBC (Bld) [Ratio] 0 % 0-5 [facility] Work Phone: [phone] MCHC Auto (RBC) [Mass/Vol]on 01-09-2022 MCHC (RBC) [Mass/Vol] 34.2 g/dL 32-36 [facility] Work [facility]: [phone] Panel Informationon 01-09 Estimated Creatinine Clearance Calc 99.98 ml/min [facility] Work Phone: [phone] Estimated GFR (MDRD) Amer 102 mL/min >60 [facility] Work Phone: [phone] Comment on above: GFR Calc Estimated GFR (MDRD) Non-Af Amer 84 mL/min >60 [facility] Work Phone: [phone] Comment on above: Non- GFR Calc Platelets bldon 01-09-2022 Platelets (Bld) [#/Vol] 286 10*3/uL 150-450 [facility] Work Phone: Serum or plasma albumin ruth urement (mass/volume)on 01-09-2022 Albumin [Mass/Vol] 4.4 g/dL 3.2-5.0 [facility] Work Phone: Serum or plasma albumin/glob ulin mass ratioon 01-09-2022 Albumin/Globulin [Mass ratio] 1.2 {ratio} 0.9-2.4 [facility] Work Phone: [phone] Serum or plasma calcium ruth urement (mass/volume)on 01-09-2022 Calcium [Mass/Vol] 10.1 mg/dL 8.5-10.1 [facility] Work Phone: [phone] Serum or plasma creatinine m easurement (mass/volume)on 01-09-2022 Creatinine [Mass/Vol] 1.10 mg/dL 0.70-1.30 [facility] Work Phone: Comment on above: The validity of the calculated GFR & GFRAA in patients over 70 years has not been determined. Clinical correlation is essential. Serum or plasma urea nitroge n measurement (mass/volume)on 01-09-2022 Urea nitrogen [Mass/Vol] 8 mg/dL 7-18 [facility] Work Phone: Thin prep Papanicolaou smear with manual screeningon 01-09-2022 Thin prep Papanicolaou smear with manual screening 27 U/L 15-37 [facility] Work Phone: Comment on above: Slight Hemolysis, Re sult may be falsely increased. Thin prep Papanicolaou smear with manual screening 10 5-15 [facility] Work Phone: Absolute lymphocyte counton 01-03-2022 Lymphocytes Auto (Unsp spec) [#/Vol] 1.67 10*3/uL 0.83-4.51 [facility] Work Phone: Basophil percentageon 2021 Basophils/100 WBC (Bld) 0.4 % 0-1 [facility] Work Phone: Bilirubin [Mass/Vol] 0.50 mg/dL 0.20-1.00 [facility] Work Phone: Comment on above: For patients on eltr ombopag therapy, use of Dimension Stringer TBIL is not recommended. Chloride [Moles/Vol] 109 mmol/L 98-107 [facility] Work Phone: Eosinophils/100 WBC (Bld) 0.9 % 0-5 [facility] Work Phone: Glucose [Mass/Vol] 103 mg/dL 74-106 [facility] Work Phone: Comment on above: Fasting Glucose resu lt from 100 to 125 mg/dL suggests IMPAIRED HOMEOSTASIS per A.D.A. criteria. Neutrophils (Bld) [#/Vol] 8.3 10*3/uL 2.0-7.7 [facility] Work Phone: Neutrophils/100 WBC (Bld) 76.8 % 47-70 [facility] Work Phone: Potassium [Moles/Vol] 3.6 mmol/L 3.5-5.1 [facility] Work Phone: Protein [Mass/Vol] 8.0 g/dL 6.4-8.2 [facility] Work Phone: Sodium [Moles/Vol] 141 mmol/L 136-145 [facility] Work Phone: WBC (Bld) [#/Vol] 10.8 10*3/uL 4.4-11.0 [facility] Work Phone: Blood erythrocytes count (nu mber/volume)on 01-03-2022 RBC (Bld) [#/Vol] 4.59 10*6/uL 4.6-6.2 [facility] Work Phone: Blood hemoglobin measurement (mass/volume)on 01-03-2022 Hemoglobin (Bld) [Mass/Vol] 14.8 g/dL 13.0-16.5 [facility] Work Phone: Blood lymphocytes/100 leukoc yteson 01-03-2022 Lymphocytes/100 WBC (Bld) 15.5 % 19-41 [facility] Work Phone: [phone] Blood monocytes/100 leukocyt eson 01-03-2022 Monocytes/100 WBC (Bld) 6.1 % 0-10 [facility] Work Phone: [phone] Blood platelet mean volumeon 01-03-2022 Platelet mean volume (Bld) [Entitic vol] 10.3 fL 6.2-12.0 [facility] Work Phone: Determination of erythrocyte mean corpuscular volume (MCV)on 01-03-2022 MCV (RBC) [Entitic vol] 91.7 fL 80-94 [facility] Work Phone: Direct bilirubinon Bilirubin.direct [Mass/Vol] 0.14 mg/dL 0.00-0.30 [facility] Work Phone: Hematocrit Auto (Bld) [Volum e fraction]on 01-03-2022 Hematocrit (Bld) [Volume fraction] 42.1 % 40-54 [facility] Work Phone: Laboratory - Chemistry and C hemistry - challengeon 01-03-2022 ALP [Catalytic activity/Vol] 66 U/L 45-117 [facility] Work Phone: ALT [Catalytic activity/Vol] 30 U/L 16-61 [facility] Work Phone: [phone] CO2 [Moles/Vol] 21.0 mmol/L 21.0-32.0 [facility] Work Phone: Globulin (S) [Mass/Vol] 3.8 g/dL 2.2-4.2 [facility] Work Phone: Lipase [Catalytic activity/Vol] 109 U/L 73-393 [facility] Work Phone: [phone] Urea nitrogen/Creatinine [Mass ratio] 7.0 mg/mg 10-20 [facility] Work Phone: Laboratory - Hematology and Cell countson 01-03-2022 Erythrocyte distribution width (RBC) [Entitic vol] 42.7 fL 35.1-43.9 [facility] Work Phone: [phone] Erythrocyte distribution width (RBC) [Ratio] 12.7 % 11.6-14.6 [facility] Work Phone: [phone] Immature granulocytes/100 WBC (Bld) 0.300 % 0.0-0.9 [facility] Work Phone: [phone] Comment on above: IG% - Immature Granu locytes (promyelocytes, myelocytes and metamyelocytes) > 1% indicates that a LEFT SHIFT is Present. MCH (RBC) [Entitic mass] 32.2 pg 27.0-32.0 [facility] Work Phone: [phone] Nucleated RBC/100 WBC (Bld) [Ratio] 0 % 0-5 [facility] Work Phone: [phone] MCHC Auto (RBC) [Mass/Vol]on 01-03-2022 MCHC (RBC) [Mass/Vol] 35.2 g/dL 32-36 [facility] Work Phone: [phone] Panel Informationon 01-03 Estimated Creatinine Clearance Calc 95.63 ml/min [facility] Work Phone: [phone] Estimated GFR (MDRD) Amer 97 mL/min >60 [facility] Work Phone: [phone] Comment on above: GFR Calc Estimated GFR (MDRD) Non-Af Amer 80 mL/min >60 [facility] Work Phone: [phone] Comment on above: Non- GFR Calc Platelets bldon 01-03-2022 Platelets (Bld) [#/Vol] 282 10*3/uL 150-450 [facility] Work Phone: [phone] Serum or plasma albumin ruth urement (mass/volume)on 01-03-2022 Albumin [Mass/Vol] 4.2 g/dL 3.2-5.0 [facility] Work Phone: [phone] Serum or plasma calcium ruth urement (mass/volume)on 01-03-2022 Calcium [Mass/Vol] 9.7 mg/dL 8.5-10.1 [facility] Work Phone: Serum or plasma creatinine m easurement (mass/volume)on 01-03-2022 Creatinine [Mass/Vol] 1.15 mg/dL 0.70-1.30 [facility] Work Phone: Comment on above: The validity of the calculated GFR & GFRAA in patients over 70 years has not been determined. Clinical correlation is essential. Serum or plasma urea nitroge n measurement (mass/volume)on 01-03-2022 Urea nitrogen [Mass/Vol] 8 mg/dL 7-18 [facility] Work Phone: Thin prep Papanicolaou smear with manual screeningon 01-03-2022 Thin prep Papanicolaou smear with manual screening 21 U/L 15-37 [facility] Work Phone: Thin prep Papanicolaou smear with manual screening 11 5-15 [facility] Work Phone: Absolute lymphocyte counton 01-02-2022 Lymphocytes Auto (Unsp spec) [#/Vol] 1.81 10*3/uL 0.83-4.51 [facility] Work Phone: Basophil percentageon 2021 Basophils/100 WBC (Bld) 0.3 % 0-1 [facility] Work Phone: Bilirubin [Mass/Vol] 0.40 mg/dL 0.20-1.00 [facility] Work Phone: Comment on above: For patients on eltr ombopag therapy, use of Dimension Stringer TBIL is not recommended. Chloride [Moles/Vol] 103 mmol/L 98-107 [facility] Work Phone: Eosinophils/100 WBC (Bld) 0.1 % 0-5 [facility] Work Phone: Glucose [Mass/Vol] 112 mg/dL 74-106 [facility] Work Phone: Comment on above: Fasting Glucose resu lt from 100 to 125 mg/dL suggests IMPAIRED HOMEOSTASIS per A.D.A. criteria. Neutrophils (Bld) [#/Vol] 15.1 10*3/uL 2.0-7.7 [facility] Work Phone: [phone] Neutrophils/100 WBC (Bld) 84.0 % 47-70 [facility] Work Phone: [phone] Potassium [Moles/Vol] 3.4 mmol/L 3.5-5.1 [facility] Work Phone: [phone] Protein [Mass/Vol] 8.9 g/dL 6.4-8.2 [facility] Work Phone: [phone] Sodium [Moles/Vol] 138 mmol/L 136-145 [facility] Work Phone: [phone] WBC (Bld) [#/Vol] 17.9 10*3/uL 4.4-11.0 [facility]: [phone] Blood erythrocytes count (nu mber/volume)on 01-02-2022 RBC (Bld) [#/Vol] 4.70 10*6/uL 4.6-6.2 [facility] Work Phone: [phone] Blood hemoglobin measurement (mass/volume)on 01-02-2022 Hemoglobin (Bld) [Mass/Vol] 14.5 g/dL 13.0-16.5 [facility] Work Phone: [phone] Blood lymphocytes/100 leukoc yteson 01-02-2022 Lymphocytes/100 WBC (Bld) 10.1 % 19-41 [facility] Work Phone: [phone] Blood monocytes/100 leukocyt eson 01-02-2022 Monocytes/100 WBC (Bld) 5.0 % 0-10 [facility] Work Phone: [phone] Blood platelet mean volumeon 01-02-2022 Platelet mean volume (Bld) [Entitic vol] 10.0 fL 6.2-12.0 [facility] Work Phone: [phone] Determination of erythrocyte mean corpuscular volume (MCV)on 01-02-2022 MCV (RBC) [Entitic vol] 91.9 fL 80-94 [facility] Work Phone: Hematocrit Auto (Bld) [Volum e fraction]on 01-02-2022 Hematocrit (Bld) [Volume fraction] 43.2 % 40-54 [facility] Work Phone: Laboratory - Chemistry and C hemistry - challengeon 01-02-2022 ALP [Catalytic activity/Vol] 69 U/L 45-117 [facility] Work Phone: ALT [Catalytic activity/Vol] 33 U/L 16-61 [facility] Work Phone: [phone] CO2 [Moles/Vol] 25.0 mmol/L 21.0-32.0 [facility] Work Phone: [phone] Globulin (S) [Mass/Vol] 4.4 g/dL 2.2-4.2 [facility] Work Phone: [phone] Lipase [Catalytic activity/Vol] 126 U/L 73-393 [facility] Work Phone: [phone] Urea nitrogen/Creatinine [Mass ratio] 8.6 mg/mg 10-20 [facility] Work Phone: Laboratory - Hematology and Cell countson 01-02-2022 Erythrocyte distribution width (RBC) [Entitic vol] 42.6 fL 35.1-43.9 [facility] Work Phone: [phone] Erythrocyte distribution width (RBC) [Ratio] 12.6 % 11.6-14.6 [facility] Work Phone: [phone] Immature granulocytes/100 WBC (Bld) 0.500 % 0.0-0.9 [facility] Work Phone: [phone] Comment on above: IG% - Immature Granu locytes (promyelocytes, myelocytes and metamyelocytes) > 1% indicates that a LEFT SHIFT is Present. MCH (RBC) [Entitic mass] 30.9 pg 27.0-32.0 [facility] Work Phone: Nucleated RBC/100 WBC (Bld) [Ratio] 0 % 0-5 [facility] Work Phone: MCHC Auto (RBC) [Mass/Vol]on 01-02-2022 MCHC (RBC) [Mass/Vol] 33.6 g/dL 32-36 [facility] Work Phone: No Panel Informationon 01-02 Estimated Creatinine Clearance Calc 85.92 ml/min [facility] Work Phone: Estimated GFR (MDRD) Amer 86 mL/min >60 [facility] Work Phone: [phone] Comment on above: GFR Calc Estimated GFR (MDRD) Non-Af Amer 71 mL/min >60 [facility] Work Phone: Comment on above: Non- GFR Calc Platelets bldon 01-02-2022 Platelets (Bld) [#/Vol] 304 10*3/uL 150-450 [facility] Work Phone: [phone] Serum or plasma albumin ruth urement (mass/volume)on 01-02-2022 Albumin [Mass/Vol] 4.5 g/dL 3.2-5.0 [facility] Work Phone: Serum or plasma albumin/glob ulin mass ratioon 01-02-2022 Albumin/Globulin [Mass ratio] 1.0 {ratio} 0.9-2.4 [facility] Work Phone: Serum or plasma calcium ruth urement (mass/volume)on 01-02-2022 Calcium [Mass/Vol] 9.5 mg/dL 8.5-10.1 [facility] Work Phone: [phone] Serum or plasma creatinine m easurement (mass/volume)on 01-02-2022 Creatinine [Mass/Vol] 1.28 mg/dL 0.70-1.30 [facility] Work Phone: Comment on above: The validity of the calculated GFR & GFRAA in patients over 70 years has not been determined. Clinical correlation is essential. Serum or plasma urea nitroge n measurement (mass/volume)on 01-02-2022 Urea nitrogen [Mass/Vol] 11 mg/dL 7-18 [facility] Work Phone: Thin prep Papanicolaou smear with manual screeningon 01-02-2022 Thin prep Papanicolaou smear with manual screening 24 U/L 15-37 [facility] Work Phone: Thin prep Papanicolaou smear with manual screening 10 5-15 [facility] Work Phone: Absolute lymphocyte counton 12-31-2021 Lymphocytes Auto (Unsp spec) [#/Vol] 2.59 10*3/uL 0.83-4.51 [facility] Work Phone: Basophil percentageon 2021 Basophils/100 WBC (Bld) 0.5 % 0-1 [facility] Work Phone: Bilirubin [Mass/Vol] 0.30 mg/dL 0.20-1.00 [facility] Work Phone: Comment on above: For patients on eltr ombopag therapy, use of Dimension Stringer TBIL is not recommended. Chloride [Moles/Vol] 108 mmol/L 98-107 [facility] Work Phone: Eosinophils/100 WBC (Bld) 0.8 % 0-5 [facility] Work Phone: Glucose [Mass/Vol] 117 mg/dL 74-106 [facility] Work Phone: Comment on above: Fasting Glucose resu lt from 100 to 125 mg/dL suggests IMPAIRED HOMEOSTASIS per A.D.A. criteria. Neutrophils (Bld) [#/Vol] 9.8 10*3/uL 2.0-7.7 [facility] Work Phone: Neutrophils/100 WBC (Bld) 73.4 % 47-70 [facility] Work Phone: Potassium [Moles/Vol] 3.5 mmol/L 3.5-5.1 [facility] Work Phone: Protein [Mass/Vol] 8.3 g/dL 6.4-8.2 [facility] Work Phone: Sodium [Moles/Vol] 139 mmol/L 136-145 [facility] Work Phone: [phone] WBC (Bld) [#/Vol] 13.3 10*3/uL 4.4-11.0 [facility] Work Phone: [phone] Blood erythrocytes count (nu mber/volume)on 12-31-2021 RBC (Bld) [#/Vol] 4.78 10*6/uL 4.6-6.2 [facility] Work Phone: [phone] Blood hemoglobin measurement (mass/volume)on 12-31-2021 Hemoglobin (Bld) [Mass/Vol] 14.8 g/dL 13.0-16.5 [facility] Work Phone: [phone] Blood lymphocytes/100 leukoc yteson 12-31-2021 Lymphocytes/100 WBC (Bld) 19.4 % 19-41 [facility] Work Phone: [phone] Blood monocytes/100 leukocyt eson 12-31-2021 Monocytes/100 WBC (Bld) 5.5 % 0-10 [facility] Work Phone: [phone] Blood platelet mean volumeon 12-31-2021 Platelet mean volume (Bld) [Entitic vol] 9.9 fL 6.2-12.0 [facility] Work Phone: [phone] Determination of erythrocyte mean corpuscular volume (MCV)on 12-31-2021 MCV (RBC) [Entitic vol] 91.2 fL 80-94 [facility] Work Phone: [phone] Hematocrit Auto (Bld) [Volum e fraction]on 12-31-2021 Hematocrit (Bld) [Volume fraction] 43.6 % 40-54 [facility] Work Phone: [phone] Laboratory - Chemistry and C hemistry - challengeon 12-31-2021 ALP [Catalytic activity/Vol] 70 U/L 45-117 [facility] Work Phone: [phone] ALT [Catalytic activity/Vol] 38 U/L 16-61 [facility] Work Phone: [phone] CO2 [Moles/Vol] 20.0 mmol/L 21.0-32.0 [facility] Work Phone: [phone] Globulin (S) [Mass/Vol] 4.1 g/dL 2.2-4.2 [facility] Work Phone: [phone] Lipase [Catalytic activity/Vol] 134 U/L 73-393 [facility] Work Phone: [phone] Urea nitrogen/Creatinine [Mass ratio] 8.3 mg/mg 10-20 [facility] Work Phone: [phone] Laboratory - Hematology and Cell countson 12-31-2021 Erythrocyte distribution width (RBC) [Entitic vol] 41.5 fL 35.1-43.9 [facility] Work Phone: [phone] Erythrocyte distribution width (RBC) [Ratio] 12.6 % 11.6-14.6 [facility] Work Phone: [phone] Immature granulocytes/100 WBC (Bld) 0.400 % 0.0-0.9 [facility] Work Phone: [phone] Comment on above: IG% - Immature Granu locytes (promyelocytes, myelocytes and metamyelocytes) > 1% indicates that a LEFT SHIFT is Present. MCH (RBC) [Entitic mass] 31.0 pg 27.0-32.0 [facility] Work Phone: [phone] Nucleated RBC/100 WBC (Bld) [Ratio] 0 % 0-5 [facility] Work Phone: [phone] MCHC Auto (RBC) [Mass/Vol]on 12-31-2021 MCHC (RBC) [Mass/Vol] 33.9 g/dL 32-36 [facility] Work Phone: [phone] Panel Informationon 12-31 Estimated Creatinine Clearance Calc 90.89 ml/min [facility] Work Phone: [phone] Estimated GFR (MDRD) Amer 92 mL/min >60 [facility] Work Phone: [phone] Comment on above: GFR Calc Estimated GFR (MDRD) Non-Af Amer 76 mL/min >60 [facility] Work Phone: [phone] Comment on above: Non- GFR Calc Platelets bldon 12-31-2021 Platelets (Bld) [#/Vol] 333 10*3/uL 150-450 [facility] Work Phone: [phone] Serum or plasma albumin ruth urement (mass/volume)on 12-31-2021 Albumin [Mass/Vol] 4.2 g/dL 3.2-5.0 [facility] Work Phone: [phone] Serum or plasma albumin/glob ulin mass ratioon 12-31-2021 Albumin/Globulin [Mass ratio] 1.0 {ratio} 0.9-2.4 [facility] Work Phone: [phone] Serum or plasma calcium ruth urement (mass/volume)on 12-31-2021 Calcium [Mass/Vol] 10.1 mg/dL 8.5-10.1 [facility] Work Phone: [phone] Serum or plasma creatinine m easurement (mass/volume)on 12-31-2021 Creatinine [Mass/Vol] 1.21 mg/dL 0.70-1.30 [facility] Work Phone: [phone] Comment on above: The validity of the calculated GFR & GFRAA in patients over 70 years has not been determined. Clinical correlation is essential. Serum or plasma urea nitroge n measurement (mass/volume)on 12-31-2021 Urea nitrogen [Mass/Vol] 10 mg/dL 7-18 [facility] Work Phone: [phone] Thin prep Papanicolaou smear with manual screeningon 12-31-2021 Thin prep Papanicolaou smear with manual screening 25 U/L 15-37 [facility] Work Phone: [phone] Thin prep Papanicolaou smear with manual screening 11 5-15 [facility] Work Phone: [phone] Absolute lymphocyte counton 11-23-2021 Lymphocytes Auto (Unsp spec) [#/Vol] 1.99 10*3/uL 0.83-4.51 [facility] Work Phone: [phone] Basophil percentageon 2021 Basophils/100 WBC (Bld) 0.3 % 0-1 [facility] Work Phone: Bilirubin [Mass/Vol] 0.20 mg/dL 0.20-1.00 [facility] Work Phone: Comment on above: For patients on eltr ombopag therapy, use of Dimension Stringer TBIL is not recommended. Chloride [Moles/Vol] 105 mmol/L 98-107 [facility] Work Phone: Eosinophils/100 WBC (Bld) 0.2 % 0-5 [facility] Work Phone: Glucose [Mass/Vol] 117 mg/dL 74-106 [facility] Work Phone: Comment on above: Fasting Glucose resu lt from 100 to 125 mg/dL suggests IMPAIRED HOMEOSTASIS per A.D.A. criteria. Neutrophils (Bld) [#/Vol] 8.7 10*3/uL 2.0-7.7 [facility] Work Phone: Neutrophils/100 WBC (Bld) 75.9 % 47-70 [facility] Work Phone: Potassium [Moles/Vol] 3.9 mmol/L 3.5-5.1 [facility] Work Phone: Protein [Mass/Vol] 8.0 g/dL 6.4-8.2 [facility] Work Phone: Sodium [Moles/Vol] 138 mmol/L 136-145 [facility] Work Phone: WBC (Bld) [#/Vol] 11.4 10*3/uL 4.4-11.0 [facility] Work Phone: Blood erythrocytes count (nu mber/volume)on 11-23-2021 RBC (Bld) [#/Vol] 4.75 10*6/uL 4.6-6.2 [facility] Work Phone: Blood hemoglobin measurement (mass/volume)on 11-23-2021 Hemoglobin (Bld) [Mass/Vol] 14.7 g/dL 13.0-16.5 [facility] Work Phone: Blood lymphocytes/100 leukoc yteson 11-23-2021 Lymphocytes/100 WBC (Bld) 17.4 % 19-41 [facility] Work Phone: Blood monocytes/100 leukocyt eson 11-23-2021 Monocytes/100 WBC (Bld) 5.6 % 0-10 [facility] Work Phone: Blood platelet mean volumeon 11-23-2021 Platelet mean volume (Bld) [Entitic vol] 9.9 fL 6.2-12.0 [facility] Work Phone: Determination of erythrocyte mean corpuscular volume (MCV)on 11-23-2021 MCV (RBC) [Entitic vol] 92.4 fL 80-94 [facility] Work Phone: Hematocrit Auto (Bld) [Volum e fraction]on 11-23-2021 Hematocrit (Bld) [Volume fraction] 43.9 % 40-54 [facility] Work Phone: Laboratory - Chemistry and C hemistry - challengeon 11-23-2021 ALP [Catalytic activity/Vol] 73 U/L 45-117 [facility] Work Phone: ALT [Catalytic activity/Vol] 42 U/L 16-61 [facility] Work Phone: CO2 [Moles/Vol] 26.0 mmol/L 21.0-32.0 [facility] Work Phone: Globulin (S) [Mass/Vol] 4.0 g/dL 2.2-4.2 [facility] Work Phone: Lipase [Catalytic activity/Vol] 66 U/L 73-393 [facility] Work Phone: Urea nitrogen/Creatinine [Mass ratio] 12.1 mg/mg 10-20 [facility] Work Phone: Laboratory - Hematology and Cell countson 11-23-2021 Erythrocyte distribution width (RBC) [Entitic vol] 43.2 fL 35.1-43.9 [facility] Work Phone: [phone] Erythrocyte distribution width (RBC) [Ratio] 12.6 % 11.6-14.6 [facility] Work Phone: [phone] Immature granulocytes/100 WBC (Bld) 0.600 % 0.0-0.9 [facility] Work Phone: [phone] Comment on above: IG% - Immature Granu locytes (promyelocytes, myelocytes and metamyelocytes) > 1% indicates that a LEFT SHIFT is Present. MCH (RBC) [Entitic mass] 30.9 pg 27.0-32.0 [facility] Work Phone: [phone] Nucleated RBC/100 WBC (Bld) [Ratio] 0 % 0-5 [facility] Work Phone: [phone] MCHC Auto (RBC) [Mass/Vol]on 11-23-2021 MCHC (RBC) [Mass/Vol] 33.5 g/dL 32-36 [facility] Work Phone: [phone] Panel Informationon 11-23 Estimated Creatinine Clearance Calc 107.47 ml/min [facility] Work Phone: [phone] Estimated GFR (MDRD) Amer 115 mL/min >60 [facility] Work Phone: [phone] Comment on above: GFR Calc Estimated GFR (MDRD) Non-Af Amer 95 mL/min >60 [facility] Work Phone: [phone] Comment on above: Non- GFR Calc Platelets bldon 11-23-2021 Platelets (Bld) [#/Vol] 312 10*3/uL 150-450 [facility] Work Phone: [phone] Serum or plasma albumin ruth urement (mass/volume)on 11-23-2021 Albumin [Mass/Vol] 4.0 g/dL 3.2-5.0 [facility] Work Phone: [phone] Serum or plasma albumin/glob ulin mass ratioon 11-23-2021 Albumin/Globulin [Mass ratio] 1.0 {ratio} 0.9-2.4 [facility] Work Phone: Serum or plasma calcium ruth urement (mass/volume)on 11-23-2021 Calcium [Mass/Vol] 9.6 mg/dL 8.5-10.1 [facility] Work Phone: Serum or plasma creatinine m easurement (mass/volume)on 11-23-2021 Creatinine [Mass/Vol] 0.99 mg/dL 0.70-1.30 [facility] Work Phone: Comment on above: The validity of the calculated GFR & GFRAA in patients over 70 years has not been determined. Clinical correlation is essential. Serum or plasma urea nitroge n measurement (mass/volume)on 11-23-2021 Urea nitrogen [Mass/Vol] 12 mg/dL 7-18 [facility] Work Phone: Thin prep Papanicolaou smear with manual screeningon 11-23-2021 Thin prep Papanicolaou smear with manual screening 19 U/L 15-37 [facility] Work Phone: Thin prep Papanicolaou smear with manual screening 7 5-15 [facility] Work Phone: Absolute lymphocyte counton 10-18-2021 Lymphocytes Auto (Unsp spec) [#/Vol] 1.65 10*3/uL 0.83-4.51 [facility] Work Phone: Albumin Elph [Mass/Vol]on Albumin [Mass/Vol] 4.3 g/dL 2.9-4.4 [facility] Work Phone: Atypical perinuclear antineu trophil cytoplasmic antibodies measurementon 10-18-2021 Neutrophil cytoplasmic Ab.perinuclear.atypical IF (S) [Titer] <1:20 titer Neg:<1:20 [facility] Work Phone: Comment on above: The atypical pANCA p attern has been observed in asignificant percentage of patients with ulcerative colitis,primary sclerosing cholangitis and autoimmune hepatitis. Basophil percentageon 2021 Amylase [Catalytic activity/Vol] 80 U/L 25-115 [facility] Work Phone: Basophil percentage < 0.2 AI 0.0-0.9 [facility] Work Phone: Basophils/100 WBC (Bld) 0.4 % 0-1 [facility] Work Phone: Bilirubin [Mass/Vol] 0.20 mg/dL 0.20-1.00 [facility] Work Phone: Comment on above: For patients on eltr ombopag therapy, use of Dimension Stringer TBIL is not recommended. Chloride [Moles/Vol] 108 mmol/L 98-107 [facility] Work Phone: Eosinophils/100 WBC (Bld) 1.5 % 0-5 [facility] Work Phone: Glucose [Mass/Vol] 103 mg/dL 74-106 [facility] Work Phone: Comment on above: Fasting Glucose resu lt from 100 to 125 mg/dL suggests IMPAIRED HOMEOSTASIS per A.D.A. criteria. Neutrophils (Bld) [#/Vol] 6.1 10*3/uL 2.0-7.7 [facility] Work Phone: Neutrophils/100 WBC (Bld) 72.4 % 47-70 [facility] Work Phone: Potassium [Moles/Vol] 3.8 mmol/L 3.5-5.1 [facility] Work Phone: Protein [Mass/Vol] 7.8 g/dL 6.4-8.2 [facility] Work Phone: Sodium [Moles/Vol] 138 mmol/L 136-145 [facility] Work Phone: WBC (Bld) [#/Vol] 8.4 10*3/uL 4.4-11.0 [facility] Work Phone: Blood erythrocytes count (nu mber/volume)on 10-18-2021 RBC (Bld) [#/Vol] 4.42 10*6/uL 4.6-6.2 [facility] Work Phone: Blood hemoglobin measurement (mass/volume)on 10-18-2021 Hemoglobin (Bld) [Mass/Vol] 13.8 g/dL 13.0-16.5 [facility] Work Phone: [phone] Blood lymphocytes/100 leukoc yteson 10-18-2021 Lymphocytes/100 WBC (Bld) 19.7 % 19-41 [facility] Work Phone: [phone] Blood monocytes/100 leukocyt eson 10-18-2021 Monocytes/100 WBC (Bld) 5.6 % 0-10 [facility] Work Phone: [phone] Blood platelet mean volumeon 10-18-2021 Platelet mean volume (Bld) [Entitic vol] 10.2 fL 6.2-12.0 [facility] Work Phone: Chocolate RASTon 10-18-2021 Chocolate IgE Qn (S) <0.10 kU/L Class 0 [facility] Work Phone: [phone] Comment on above: Performed at: [address] [id number] Director: Palomo Wayne PhD, Phone: [phone] at: [facility] Lab[address] [id number] Director: Luzma Perez MD, Phone: [phone] Determination of erythrocyte mean corpuscular volume (MCV)on 10-18-2021 MCV (RBC) [Entitic vol] 93.2 fL 80-94 [facility] Work Phone: [phone] Erythrocyte sedimentation ra micah 10-18-2021 ESR (Bld) [Velocity] 8 mm/h 0-20 [facility] Work Phone: [phone] Hematocrit Auto (Bld) [Volum e fraction]on 10-18-2021 Hematocrit (Bld) [Volume fraction] 41.2 % 40-54 [facility] Work Phone: [phone] Interpretation of serum or p lasma protein pattern by immunofixation (narrative resulton 10-18-2021 Protein Fractions Immunofixation Oscar [Interp] See comment [facility] Work Phone: Comment on above: Result: Not Observed Laboratory - Chemistry and C hemistry - challengeon 10-18-2021 ALP [Catalytic activity/Vol] 69 U/L 45-117 [facility] Work Phone: ALT [Catalytic activity/Vol] 38 U/L 16-61 [facility] Work Phone: CO2 [Moles/Vol] 24.0 mmol/L 21.0-32.0 [facility] Work Phone: Globulin (S) [Mass/Vol] 3.8 g/dL 2.2-4.2 [facility] Work Phone: Lipase [Catalytic activity/Vol] 75 U/L 73-393 [facility] Work Phone: Urea nitrogen/Creatinine [Mass ratio] 8.9 mg/mg 10-20 [facility] Work Phone: Laboratory - Hematology and Cell countson 10-18-2021 Erythrocyte distribution width (RBC) [Entitic vol] 44.1 fL 35.1-43.9 [facility] Work Phone: Erythrocyte distribution width (RBC) [Ratio] 12.8 % 11.6-14.6 [facility] Work Phone: Immature granulocytes/100 WBC (Bld) 0.400 % 0.0-0.9 [facility] Work Phone: Comment on above: IG% - Immature Granu locytes (promyelocytes, myelocytes and metamyelocytes) > 1% indicates that a LEFT SHIFT is Present. MCH (RBC) [Entitic mass] 31.2 pg 27.0-32.0 [facility] Work Phone: Nucleated RBC/100 WBC (Bld) [Ratio] 0 % 0-5 [facility] Work Phone: [phone] Laboratory - Miscellaneous t estson 10-18-2021 Service comment (Unsp spec) [Interp] Comment . [facility] Work Phone: Comment on above: Levels of Specific I gE Class Description of Class ----- < 0.10 0 Negative 0.10 - 0.31 0/I Equivocal/Low 0.32 - 0.55 I Low 0.56 - 1.40 II Moderate 1.41 - 3.90 III High 3.91 - 19.00 IV Very High 19.01 - 100.00 V Very High >100.00 Very High MCHC Auto (RBC) [Mass/Vol]on 10-18-2021 MCHC (RBC) [Mass/Vol] 33.5 g/dL 32-36 [facility] Work Phone: No Panel Informationon 10-18 Addendum Document Comment . [facility] Work Phone: [phone] Comment on above: Protein electrophore sis scan will follow via computer,mail, or energy analyst delivery. Centromere B Antibody <0.2 AI 0.0-0.9 [facility] Work Phone: [phone] Endomysial IgA Antibody Negative Negative [facility] Work Phone: [phone] Estimated GFR (MDRD) Amer 113 mL/min >60 [facility] Work Phone: [phone] Comment on above: GFR Calc Estimated GFR (MDRD) Non-Af Amer 93 mL/min >60 [facility] Work Phone: [phone] Comment on above: Non- GFR Calc Immunoglobulin E 103 IU/mL 6-495 [facility] Work Phone: [phone] [employer] Antibody <0.2 AI 0.0-0.9 [facility] Work Phone: [phone] [employer] Allergens (RAST) Negative . [facility] Work Phone: [phone] Comment on above: Allergens in this mi x are: Blue mussel Fish [place] Shrimp Tuna Platelets bldon 10-18-2021 Platelets (Bld) [#/Vol] 265 10*3/uL 150-450 [facility] Work Phone: Serum DNA double strand anti body assay (units/volume)on 10-18-2021 DNA double strand Ab Qn (S) [IU]/mL 0-9 [facility] Work Phone: Comment on above: Negative <5 Equivoca l 5 - 9 Positive >9 Serum IgA measurement (units /volume)on 10-18-2021 IgA Qn (S) 248 mg/dL [facility] Work Phone: Comment on above: Performed at: [place] [id number] Director: Palomo Wayne PhD, Phone: [phone] Serum Chelsie-1 antibody assay (u nits/volume)on 10-18-2021 Chelsie-1 extractable nuclear Ab Qn (S) <0.2 AI 0.0-0.9 [facility] Work Phone: Serum Scl-70 extractable nuc lear antibody assay (units/volume)on 10-18-2021 SCL-70 extractable nuclear Ab Qn (S) <0.2 AI 0.0-0.9 [facility] Work Phone: Serum Roberts extractable nucl ear antibody detectionon 10-18-2021 Roberts extractable nuclear Ab Ql (S) <0.2 AI 0.0-0.9 [facility] Work Phone: [phone] Serum nxcak-3-ofucsoey measu rement by electrophoresison 10-18-2021 Alpha 1 globulin Elph [Mass/Vol] 0.2 g/dL 0.0-0.4 [facility] Work Phone: [phone] Alpha 1 globulin Elph [Mass/Vol] 0.6 g/dL 0.4-1.0 [facility] Work Phone: [phone] Serum beef IgE antibody assa y (units/volume)on 10-18-2021 Beef IgE Qn (S) <0.10 kU/L Class 0 [facility] Work Phone: Serum classic neutrophil cyt oplasmic antibody assay (units/volume)on 10-18-2021 Neutrophil cytoplasmic Ab.classic Qn (S) <1:20 titer Neg:<1:20 [facility] Work Phone: Serum corn IgE antibody assa y (units/volume)on 10-18-2021 Broadus IgE Qn (S) <0.10 kU/L Class 0 [facility] Work Phone: Serum cow milk IgE antibody assay (units/volume)on 10-18-2021 Cow milk IgE Qn (S) <0.10 kU/L Class 0 [facility] Work Phone: Serum globulin measurement ( mass/volume)on 10-18-2021 Globulin (S) [Mass/Vol] 3.0 g/dL 2.2-3.9 [facility] Work Phone: Serum or plasma C reactive p rotein measurement (mass/volume)on 10-18-2021 CRP [Mass/Vol] mg/L 0.0-3.0 [facility] Work Phone: Comment on above: C-Reactive Protein ( CRP) provides useful information for thediagnosis, therapy and monitoring of inflammatory processesand associated diseases. For the evaluation of Relative Riskfor Cardiovascular Disease, a High Sensitivity CRP (HSCRP)should be ordered. Serum or plasma IgA measurem ent (mass/volume)on 10-18-2021 IgA [Mass/Vol] 243 mg/dL 90-386 [facility] Work Phone: [phone] Serum or plasma IgG measurem ent (mass/volume)on 10-18-2021 IgG [Mass/Vol] 1207 mg/dL 603-1613 [facility] Work Phone: [phone] Serum or plasma IgM measurem ent (mass/volume)on 10-18-2021 IgM [Mass/Vol] 44 mg/dL 20-172 [facility] Work Phone: Serum or plasma albumin ruth urement (mass/volume)on 10-18-2021 Albumin [Mass/Vol] 4.0 g/dL 3.2-5.0 [facility] Work Phone: [phone] Serum or plasma albumin/glob ulin mass ratioon 10-18-2021 Albumin/Globulin [Mass ratio] 1.1 {ratio} 0.9-2.4 [facility] Work Phone: [phone] Serum or plasma angiotensin converting enzyme measurement (enzymatic activity/volume)on 10-18-2021 Angiotensin converting enzyme [Catalytic activity/Vol] 30 U/L 14-82 [facility] Work Phone: [phone] Comment on above: Performed at: [id number] [place], [place] [id number] Director: Palomo Wayne PhD, Phone: [phone] at: [facility] [address] [id number] Director: Luzma Perez MD, Phone: [phone] Serum or plasma beta globuli n measurement by electrophoresis (mass/volume)on 10-18-2021 Beta globulin Elph [Mass/Vol] 1.1 g/dL 0.7-1.3 [facility] Work Phone: [phone] Serum or plasma calcium ruth urement (mass/volume)on 10-18-2021 Calcium [Mass/Vol] 9.1 mg/dL 8.5-10.1 [facility] Work Phone: [phone] Serum or plasma complement C 3 measurement (mass/volume)on 10-18-2021 Complement C3 [Mass/Vol] 133 mg/dL 82-167 [facility] Work Phone: [phone] Serum or plasma complement C 4 measurement (mass/volume)on 10-18-2021 Complement C4 [Mass/Vol] 33 mg/dL 12-38 [facility] Work Phone: [phone] Serum or plasma creatinine m easurement (mass/volume)on 10-18-2021 Creatinine [Mass/Vol] 1.01 mg/dL 0.70-1.30 [facility] Work Phone: [phone] Comment on above: The validity of the calculated GFR & GFRAA in patients over 70 years has not been determined. Clinical correlation is essential. Serum or plasma gamma globul in measurement by electrophoresis (mass/volume)on 10-18-2021 Gamma globulin Elph [Mass/Vol] 1.1 g/dL 0.4-1.8 [facility] Work Phone: Serum or plasma immunoelectr ophoresis interpretation (nominal result)on 10-18-2021 Interpretation IEP [Interp] Comment . [facility] Work Phone: Comment on above: No monoclonality det ected. Serum or plasma prolactin me asurement (mass/volume)on 10-18-2021 Prolactin [Mass/Vol] 8.6 ng/mL [facility] Work Phone: Comment on above: NORMAL REFERENCE RAN GES FEMALE NON- 2.2 - 30.3 ng/mL 8.1 - 347.6 ng/mL POST-MENOPAUSAL 0.7 - 31.5 ng/mL MALE 2.5 - 17.4 ng/mL Serum or plasma urea nitroge n measurement (mass/volume)on 10-18-2021 Urea nitrogen [Mass/Vol] 9 mg/dL 7-18 [facility] Work Phone: Serum peanut IgE antibody as say (units/volume)on 10-18-2021 Peanut IgE Qn (S) 0.29 kU/L Class 0/I [facility] Work Phone: Serum perinuclear neutrophil cytoplasmic antibody titer by immunofluorescenceon 10-18-2021 Neutrophil cytoplasmic Ab.perinuclear IF (S) [Titer] <1:20 titer Neg:<1:20 [facility] Work Phone: Comment on above: The presence of posi tive fluorescence exhibiting P-ANCA orC-ANCA patterns alone is not specific for the diagnosis ofWegener's Granulomatosis (WG) or microscopic polyangiitis.Decisions about treatment should not be based solely onANCA IFA results. The [employer]CA [employer] Consensusrecommends follow up testing of positive sera with both DE-3 and MPO-ANCA enzyme immunoassays. As many as 5% serumsamples are positive only by EIA. Ref. AM J Clin [id number];111:507-513. Serum pork IgE antibody assa y (units/volume)on 10-18-2021 Pork IgE Qn (S) <0.10 kU/L Class 0 [facility] Work Phone: Serum soybean IgE antibody a ssay (units/volume)on 10-18-2021 Soybean IgE Qn (S) <0.10 kU/L Class 0 [facility] Work Phone: Serum tissue transglutaminas e IgA antibody assay (units/volume)on 10-18-2021 tTG IgA Qn (S) <2 U/mL 0-3 [facility] Work Phone: Comment on above: Negative 0 - 3 Weak Positive 4 - 10 Positive >10 Tissue Transglutaminase (tTG) has been identified as the endomysial antigen. Studies have demonstr- ated that endomysial IgA antibodies have over 99% specificity for gluten sensitive enteropathy. Serum wheat IgE antibody ass ay (units/volume)on 10-18-2021 Wheat IgE Qn (S) <0.10 kU/L Class 0 [facility] Work Phone: Serum whole egg IgE antibody assay (units/volume)on 10-18-2021 Whole Egg IgE Qn (S) <0.10 kU/L Class 0 [facility] Work Phone: Thin prep Papanicolaou smear with manual screeningon 10-18-2021 Thin prep Papanicolaou smear with manual screening 25 U/L 15-37 [facility] Work Phone: Thin prep Papanicolaou smear with manual screening 6 5-15 [facility] Work Phone: [phone] Thin prep Papanicolaou smear with manual screening 188 U/L 87-241 [facility] Work Phone: [phone] Thin prep Papanicolaou smear with manual screening 1.5 0.7-1.7 [facility] Work Phone: Total protein bloodon 2021 Protein [Mass/Vol] 7.3 g/dL 6.0-8.5 [facility] Work Phone: Absolute lymphocyte counton 04-24-2022 Lymphocytes Auto (Unsp spec) [#/Vol] 2.59 10*3/uL 0.83-4.51 [facility] Work Phone: Basophil percentageon 2021 Chloride [Moles/Vol] 109 mmol/L 98-107 [facility] Work Phone: Glucose [Mass/Vol] 118 mg/dL 74-106 [facility] Work Phone: Comment on above: Fasting Glucose resu lt from 100 to 125 mg/dL suggests IMPAIRED HOMEOSTASIS per A.D.A. criteria. Potassium [Moles/Vol] 3.1 mmol/L 3.5-5.1 [facility] Work Phone: Sodium [Moles/Vol] 138 mmol/L 136-145 [facility] Work Phone: Basophils/100 WBC (Bld) 0.4 % 0-1 [facility] Work Phone: Eosinophils/100 WBC (Bld) 0.4 % 0-5 [facility] Work Phone: Neutrophils (Bld) [#/Vol] 9.8 10*3/uL 2.0-7.7 [facility] Work Phone: Neutrophils/100 WBC (Bld) 72.7 % 47-70 [facility] Work Phone: WBC (Bld) [#/Vol] 13.5 10*3/uL 4.4-11.0 [facility] Work Phone: Blood erythrocytes count (nu mber/volume)on 09-04-2021 RBC (Bld) [#/Vol] 4.85 10*6/uL 4.6-6.2 [facility] Work Phone: Blood hemoglobin measurement (mass/volume)on 09-04-2021 Hemoglobin (Bld) [Mass/Vol] 15.1 g/dL 13.0-16.5 [facility] Work Phone: Blood lymphocytes/100 leukoc yteson 09-04-2021 Lymphocytes/100 WBC (Bld) 19.3 % 19-41 [facility] Work Phone: Blood monocytes/100 leukocyt eson 09-04-2021 Monocytes/100 WBC (Bld) 6.9 % 0-10 [facility] Work Phone: [phone] Blood platelet mean volumeon 09-04-2021 Platelet mean volume (Bld) [Entitic vol] 10.7 fL 6.2-12.0 [facility] Work Phone: [phone] Determination of erythrocyte mean corpuscular volume (MCV)on 09-04-2021 MCV (RBC) [Entitic vol] 90.3 fL 80-94 [facility] Work Phone: [phone] Hematocrit Auto (Bld) [Volum e fraction]on 09-04-2021 Hematocrit (Bld) [Volume fraction] 43.8 % 40-54 [facility] Work Phone: Laboratory - Chemistry and C hemistry - challengeon 09-04-2021 CO2 [Moles/Vol] 21.0 mmol/L 21.0-32.0 [facility] Work Phone: Lipase [Catalytic activity/Vol] 108 U/L 73-393 [facility] Work Phone: Urea nitrogen/Creatinine [Mass ratio] 11.2 mg/mg 10-20 [facility] Work Phone: [phone] Laboratory - Hematology and Cell countson 09-04-2021 Erythrocyte distribution width (RBC) [Entitic vol] 40.7 fL 35.1-43.9 [facility] Work Phone: [phone] Erythrocyte distribution width (RBC) [Ratio] 12.2 % 11.6-14.6 [facility] Work Phone: [phone] Immature granulocytes/100 WBC (Bld) 0.300 % 0.0-0.9 [facility] Work Phone: [phone] Comment on above: IG% - Immature Granu locytes (promyelocytes, myelocytes and metamyelocytes) > 1% indicates that a LEFT SHIFT is Present. MCH (RBC) [Entitic mass] 31.1 pg 27.0-32.0 [facility] Work Phone: Nucleated RBC/100 WBC (Bld) [Ratio] 0 % 0-5 [facility] Work Phone: MCHC Auto (RBC) [Mass/Vol]on 09-04-2021 MCHC (RBC) [Mass/Vol] 34.5 g/dL 32-36 [facility] Work Phone: No Panel Informationon 09-04 Estimated Creatinine Clearance Calc 108.57 ml/min [facility] Work Phone: Estimated GFR (MDRD) Amer 117 mL/min >60 [facility] Work Phone: Comment on above: GFR Calc Estimated GFR (MDRD) Non-Af Amer 97 mL/min >60 [facility] Work Phone: Comment on above: Non- GFR Calc Platelets bldon 09-04-2021 Platelets (Bld) [#/Vol] 308 10*3/uL 150-450 [facility] Work Phone: Serum or plasma calcium ruth urement (mass/volume)on 09-04-2021 Calcium [Mass/Vol] 8.9 mg/dL 8.5-10.1 [facility] Work Phone: [phone] Serum or plasma creatinine m easurement (mass/volume)on 09-04-2021 Creatinine [Mass/Vol] 0.98 mg/dL 0.70-1.30 [facility] Work Phone: Comment on above: The validity of the calculated GFR & GFRAA in patients over 70 years has not been determined. Clinical correlation is essential. Serum or plasma urea nitroge n measurement (mass/volume)on 09-04-2021 Urea nitrogen [Mass/Vol] 11 mg/dL 7-18 [facility] Work Phone: [phone] Thin prep Papanicolaou smear with manual screeningon 09-04-2021 Thin prep Papanicolaou smear with manual screening 8 5-15 [facility] Work Phone: Absolute lymphocyte counton 09-01-2021 Lymphocytes Auto (Unsp spec) [#/Vol] 1.28 10*3/uL 0.83-4.51 [facility] Work Phone: Basophil percentageon 2021 Basophils/100 WBC (Bld) 0.4 % 0-1 [facility] Work Phone: Bilirubin [Mass/Vol] 0.40 mg/dL 0.20-1.00 [facility] Work Phone: Comment on above: For patients on eltr ombopag therapy, use of Dimension Stringer TBIL is not recommended. Chloride [Moles/Vol] 108 mmol/L 98-107 [facility] Work Phone: Eosinophils/100 WBC (Bld) 0.1 % 0-5 [facility] Work Phone: Glucose [Mass/Vol] 121 mg/dL 74-106 [facility] Work Phone: Comment on above: Fasting Glucose resu lt from 100 to 125 mg/dL suggests IMPAIRED HOMEOSTASIS per A.D.A. criteria. Neutrophils (Bld) [#/Vol] 10.1 10*3/uL 2.0-7.7 [facility] Work Phone: Neutrophils/100 WBC (Bld) 84.4 % 47-70 [facility] Work [phone] Potassium [Moles/Vol] 3.4 mmol/L 3.5-5.1 [facility] Work Phone: Protein [Mass/Vol] 8.6 g/dL 6.4-8.2 [facility] Work Phone: Sodium [Moles/Vol] 139 mmol/L 136-145 [facility] Work Phone: WBC (Bld) [#/Vol] 12.0 10*3/uL 4.4-11.0 [facility] Work Phone: Blood erythrocytes count (nu mber/volume)on 09-01-2021 RBC (Bld) [#/Vol] 4.61 10*6/uL 4.6-6.2 [facility] Work Phone: Blood hemoglobin measurement (mass/volume)on 09-01-2021 Hemoglobin (Bld) [Mass/Vol] 14.2 g/dL 13.0-16.5 [facility] Work Phone: [phone] Blood lymphocytes/100 leukoc yteson 09-01-2021 Lymphocytes/100 WBC (Bld) 10.6 % 19-41 [facility] Work Phone: [phone] Blood monocytes/100 leukocyt eson 09-01-2021 Monocytes/100 WBC (Bld) 3.4 % 0-10 [facility] Work Phone: [phone] Blood platelet mean volumeon 09-01-2021 Platelet mean volume (Bld) [Entitic vol] 10.1 fL 6.2-12.0 [facility] Work Phone: [phone] of erythrocyte mean corpuscular volume (MCV)on 09-01-2021 MCV (RBC) [Entitic vol] 90.2 fL 80-94 [facility] Work Phone: Direct bilirubinon Bilirubin.direct [Mass/Vol] 0.14 mg/dL 0.00-0.30 [facility] Work Phone: [phone] Hematocrit Auto (Bld) [Volum e fraction]on 09-01-2021 Hematocrit (Bld) [Volume fraction] 41.6 % 40-54 [facility] Work Phone: [phone] Laboratory - Chemistry and C hemistry - challengeon 09-01-2021 ALP [Catalytic activity/Vol] 75 U/L 45-117 [facility] Work Phone: [phone] ALT [Catalytic activity/Vol] 33 U/L 16-61 [facility] Work Phone: [phone] CO2 [Moles/Vol] 22.0 mmol/L 21.0-32.0 [facility] Work Phone: [phone] Globulin (S) [Mass/Vol] 4.1 g/dL 2.2-4.2 [facility] Work Phone: Lipase [Catalytic activity/Vol] 74 U/L 73-393 [facility] Work Phone: [phone] Urea nitrogen/Creatinine [Mass ratio] 10.3 mg/mg 10-20 [facility] Work Phone: Laboratory - Hematology and Cell countson 09-01-2021 Erythrocyte distribution width (RBC) [Entitic vol] 41.5 fL 35.1-43.9 [facility] Work Phone: [phone] Erythrocyte distribution width (RBC) [Ratio] 12.6 % 11.6-14.6 [facility] Work Phone: [phone] Immature granulocytes/100 WBC (Bld) 1.100 % 0.0-0.9 [facility] Work Phone: [phone] Comment on above: IG% - Immature Granu locytes (promyelocytes, myelocytes and metamyelocytes) > 1% indicates that a LEFT SHIFT is Present. MCH (RBC) [Entitic mass] 30.8 pg 27.0-32.0 [facility] Work Phone: Nucleated RBC/100 WBC (Bld) [Ratio] 0 % 0-5 [facility] Work Phone: MCHC Auto (RBC) [Mass/Vol]on 09-01-2021 MCHC (RBC) [Mass/Vol] 34.1 g/dL 32-36 [facility] Work [facility]: No Panel Informationon 09-01 Estimated Creatinine Clearance Calc 99.44 ml/min [facility] Work Phone: Estimated GFR (MDRD) Amer 106 mL/min >60 [facility] Work Phone: [phone] Comment on above: GFR Calc Estimated GFR (MDRD) Non-Af Amer 87 mL/min >60 [facility] Work Phone: [phone] Comment on above: Non- GFR Calc Platelets bldon 09-01-2021 Platelets (Bld) [#/Vol] 290 10*3/uL 150-450 [facility] Work Phone: [phone] Serum or plasma albumin ruth urement (mass/volume)on 09-01-2021 Albumin [Mass/Vol] 4.5 g/dL 3.2-5.0 [facility] Work Phone: [phone] Serum or plasma calcium ruth urement (mass/volume)on 09-01-2021 Calcium [Mass/Vol] 9.7 mg/dL 8.5-10.1 [facility] Work Phone: [phone] Serum or plasma creatinine m easurement (mass/volume)on 09-01-2021 Creatinine [Mass/Vol] 1.07 mg/dL 0.70-1.30 [facility] [facility] Work Phone: Comment on above: The validity of the calculated GFR & GFRAA in patients over 70 years has not been determined. Clinical correlation is essential. Serum or plasma urea nitroge n measurement (mass/volume)on 09-01-2021 Urea nitrogen [Mass/Vol] 11 mg/dL 7-18 [facility] Work Phone: Thin prep Papanicolaou smear with manual screeningon 09-01-2021 Thin prep Papanicolaou smear with manual screening 23 U/L 15-37 [facility] Work Phone: [phone] Thin prep Papanicolaou smear with manual screening 9 5-15 [facility] Work Phone: [phone] Absolute lymphocyte counton 07-19-2021 Lymphocytes Auto (Unsp spec) [#/Vol] 1.38 10*3/uL 0.83-4.51 [facility] Work Phone: Basophil percentageon 2021 Basophils/100 WBC (Bld) 0.3 % 0-1 [facility] Work Phone: [phone] Bilirubin [Mass/Vol] 0.30 mg/dL 0.20-1.00 [facility] Work Phone: [phone] Comment on above: For patients on eltr ombopag therapy, use of Dimension Stringer TBIL is not recommended. Chloride [Moles/Vol] 112 mmol/L 98-107 [facility] Work Phone: Eosinophils/100 WBC (Bld) 0.1 % 0-5 [facility] Work Phone: Glucose [Mass/Vol] 116 mg/dL 74-106 [facility] Work Phone: Comment on above: Fasting Glucose resu lt from 100 to 125 mg/dL suggests IMPAIRED HOMEOSTASIS per A.D.A. criteria. Neutrophils (Bld) [#/Vol] 8.6 10*3/uL 2.0-7.7 [facility] Work Phone: Neutrophils/100 WBC (Bld) 81.9 % 47-70 [facility] Work Phone: Potassium [Moles/Vol] 4.2 mmol/L 3.5-5.1 [facility] Work Phone: Protein [Mass/Vol] 8.3 g/dL 6.4-8.2 [facility] Work Phone: Sodium [Moles/Vol] 139 mmol/L 136-145 [facility] Work Phone: WBC (Bld) [#/Vol] 10.5 10*3/uL 4.4-11.0 [facility] Work Phone: Blood erythrocytes count (nu mber/volume)on 07-19-2021 RBC (Bld) [#/Vol] 4.81 10*6/uL 4.6-6.2 [facility] Work Phone: Blood hemoglobin measurement (mass/volume)on 07-19-2021 Hemoglobin (Bld) [Mass/Vol] 15.1 g/dL 13.0-16.5 [facility] Work Phone: Blood lymphocytes/100 leukoc yteson 07-19-2021 Lymphocytes/100 WBC (Bld) 13.1 % 19-41 [facility] Work Phone: Blood monocytes/100 leukocyt eson 07-19-2021 Monocytes/100 WBC (Bld) 4.4 % 0-10 [facility] Work Phone: Blood platelet mean volumeon 07-19-2021 Platelet mean volume (Bld) [Entitic vol] 10.4 fL 6.2-12.0 [facility] Work Phone: Determination of erythrocyte mean corpuscular volume (MCV)on 07-19-2021 MCV (RBC) [Entitic vol] 90.4 fL 80-94 [facility] Work Phone: Hematocrit Auto (Bld) [Volum e fraction]on 07-19-2021 Hematocrit (Bld) [Volume fraction] 43.5 % 40-54 [facility] Work Phone: Laboratory - Chemistry and C hemistry - challengeon 07-19-2021 ALP [Catalytic activity/Vol] 74 U/L 45-117 [facility] Work Phone: ALT [Catalytic activity/Vol] 36 U/L 16-61 [facility] Work Phone: CO2 [Moles/Vol] 22.0 mmol/L 21.0-32.0 [facility] Work Phone: [phone] Globulin (S) [Mass/Vol] 3.9 g/dL 2.2-4.2 [facility] Work Phone: [phone] Lipase [Catalytic activity/Vol] 55 U/L 73-393 [facility] Work Phone: Urea nitrogen/Creatinine [Mass ratio] 6.9 mg/mg 10-20 [facility] Work Phone: Laboratory - Hematology and Cell countson 07-19-2021 Erythrocyte distribution width (RBC) [Entitic vol] 40.5 fL 35.1-43.9 [facility] Work Phone: [phone] Erythrocyte distribution width (RBC) [Ratio] 12.2 % 11.6-14.6 [facility] Work Phone: Immature granulocytes/100 WBC (Bld) 0.200 % 0.0-0.9 [facility] Work Phone: Comment on above: IG% - Immature Granu locytes (promyelocytes, myelocytes and metamyelocytes) > 1% indicates that a LEFT SHIFT is Present. MCH (RBC) [Entitic mass] 31.4 pg 27.0-32.0 [facility] Work Phone: [phone] Nucleated RBC/100 WBC (Bld) [Ratio] 0 % 0-5 [facility] Work Phone: [phone] MCHC Auto (RBC) [Mass/Vol]on 07-19-2021 MCHC (RBC) [Mass/Vol] 34.7 g/dL 32-36 [facility] Work Phone: [phone] Panel Informationon 07-19 Estimated Creatinine Clearance Calc 104.31 ml/min [facility] Work Phone: [phone] Estimated GFR (MDRD) Amer 112 mL/min >60 [facility] Work Phone: [phone] Comment on above: GFR Calc Estimated GFR (MDRD) Non-Af Amer 92 mL/min >60 [facility] Work Phone: [phone] Comment on above: Non- GFR Calc Platelets bldon 07-19-2021 Platelets (Bld) [#/Vol] 296 10*3/uL 150-450 [facility] Work Phone: [phone] Serum or plasma albumin ruth urement (mass/volume)on 07-19-2021 Albumin [Mass/Vol] 4.4 g/dL 3.2-5.0 [facility] Work Phone: [phone] Serum or plasma albumin/glob ulin mass ratioon 07-19-2021 Albumin/Globulin [Mass ratio] 1.1 {ratio} 0.9-2.4 [facility] Work Phone: [phone] Serum or plasma calcium ruth urement (mass/volume)on 07-19-2021 Calcium [Mass/Vol] 10.0 mg/dL 8.5-10.1 [facility] Work Phone: [phone] Serum or plasma creatinine m easurement (mass/volume)on 07-19-2021 Creatinine [Mass/Vol] 1.02 mg/dL 0.70-1.30 [facility] Work Phone: Comment on above: The validity of the calculated GFR & GFRAA in patients over 70 years has not been determined. Clinical correlation is essential. Serum or plasma urea nitroge n measurement (mass/volume)on 07-19-2021 Urea nitrogen [Mass/Vol] 7 mg/dL 7-18 [facility] Work Phone: Thin prep Papanicolaou smear with manual screeningon 07-19-2021 Thin prep Papanicolaou smear with manual screening 21 U/L 15-37 [facility] Work Phone: Thin prep Papanicolaou smear with manual screening 5 5-15 [facility] Work Phone: Absolute lymphocyte counton 06-04-2021 Lymphocytes Auto (Unsp spec) [#/Vol] 2.03 10*3/uL 0.83-4.51 [facility] Work Phone: Basophil percentageon 2021 Basophils/100 WBC (Bld) 0.7 % 0-1 [facility] Work Phone: Bilirubin [Mass/Vol] 0.40 mg/dL 0.20-1.00 [facility] Work Phone: Comment on above: For patients on eltr ombopag therapy, use of Dimension Stringer TBIL is not recommended. Chloride [Moles/Vol] 107 mmol/L 98-107 [facility] Work Phone: Eosinophils/100 WBC (Bld) 1.3 % 0-5 [facility] Work Phone: Glucose [Mass/Vol] 99 mg/dL 74-106 [facility] Work Phone: Neutrophils (Bld) [#/Vol] 6.2 10*3/uL 2.0-7.7 [facility] Work Phone: Neutrophils/100 WBC (Bld) 68.7 % 47-70 [facility] Work Phone: Potassium [Moles/Vol] 3.7 mmol/L 3.5-5.1 [facility] Work Phone: Protein [Mass/Vol] 8.9 g/dL 6.4-8.2 [facility] Work Phone: [phone] Sodium [Moles/Vol] 139 mmol/L 136-145 [facility] Work [facility]: [phone] WBC (Bld) [#/Vol] 9.1 10*3/uL 4.4-11.0 [facility] Work Phone: [phone] Blood erythrocytes count (nu mber/volume)on 06-04-2021 RBC (Bld) [#/Vol] 4.69 10*6/uL 4.6-6.2 [facility]: [phone] Blood hemoglobin measurement (mass/volume)on 06-04-2021 Hemoglobin (Bld) [Mass/Vol] 14.4 g/dL 13.0-16.5 [facility] Work Phone: [phone] Blood lymphocytes/100 leukoc yteson 06-04-2021 Lymphocytes/100 WBC (Bld) 22.4 % 19-41 [facility] Work Phone: [phone] Blood monocytes/100 leukocyt eson 06-04-2021 Monocytes/100 WBC (Bld) 6.6 % 0-10 [facility] Work Phone: [phone] Blood platelet mean volumeon 06-04-2021 Platelet mean volume (Bld) [Entitic vol] 9.9 fL 6.2-12.0 [facility] Work Phone: Determination of erythrocyte mean corpuscular volume (MCV)on 06-04-2021 MCV (RBC) [Entitic vol] 89.6 fL 80-94 [facility] Work Phone: [phone] Hematocrit Auto (Bld) [Volum e fraction]on 06-04-2021 Hematocrit (Bld) [Volume fraction] 42.0 % 40-54 [facility] Work Phone: Laboratory - Chemistry and C hemistry - challengeon 06-04-2021 ALP [Catalytic activity/Vol] 83 U/L 45-117 [facility] Work Phone: [phone] ALT [Catalytic activity/Vol] 32 U/L 16-61 [facility] Work Phone: [phone] CO2 [Moles/Vol] 24.0 mmol/L 21.0-32.0 [facility] Work Phone: [phone] Globulin (S) [Mass/Vol] 4.5 g/dL 2.2-4.2 [facility] Work Phone: [phone] Lipase [Catalytic activity/Vol] 73 U/L 73-393 [facility] Work Phone: [phone] Urea nitrogen/Creatinine [Mass ratio] 9.5 mg/mg 10-20 [facility] Work Phone: [phone] Laboratory - Hematology and Cell countson 06-04-2021 Erythrocyte distribution width (RBC) [Entitic vol] 41.4 fL 35.1-43.9 [facility] Work Phone: [phone] Erythrocyte distribution width (RBC) [Ratio] 12.7 % 11.6-14.6 [facility] Work Phone: [phone] Immature granulocytes/100 WBC (Bld) 0.300 % 0.0-0.9 [facility] Work Phone: [phone] Comment on above: IG% - Immature Granu locytes (promyelocytes, myelocytes and metamyelocytes) > 1% indicates that a LEFT SHIFT is Present. MCH (RBC) [Entitic mass] 30.7 pg 27.0-32.0 [facility] Work Phone: [phone] Nucleated RBC/100 WBC (Bld) [Ratio] 0 % 0-5 [facility] Work Phone: [phone] MCHC Auto (RBC) [Mass/Vol]on 06-04-2021 MCHC (RBC) [Mass/Vol] 34.3 g/dL 32-36 [facility] Work Phone: [phone] Panel Informationon 06-04 Estimated Creatinine Clearance Calc 102.24 ml/min [facility] Work Phone: Estimated GFR (MDRD) Amer 108 mL/min >60 [facility] Work Phone: Comment on above: GFR Calc Estimated GFR (MDRD) Non-Af Amer 89 mL/min >60 [facility] Work Phone: Comment on above: Non- GFR Calc Thyroid Stimulating Hormone (TSH) 4.74 uIU/mL 0.358-3.74 [facility] Work Phone: Platelets bldon 06-04-2021 Platelets (Bld) [#/Vol] 264 10*3/uL 150-450 [facility] Work Phone: [phone] Serum or plasma albumin ruth urement (mass/volume)on 06-04-2021 Albumin [Mass/Vol] 4.4 g/dL 3.2-5.0 [facility] Work Phone: Serum or plasma albumin/glob ulin mass ratioon 06-04-2021 Albumin/Globulin [Mass ratio] 1.0 {ratio} 0.9-2.4 [facility] Work Phone: Serum or plasma calcium ruth urement (mass/volume)on 06-04-2021 Calcium [Mass/Vol] 10.0 mg/dL 8.5-10.1 [facility] Work Phone: [phone] Serum or plasma creatinine m easurement (mass/volume)on 06-04-2021 Creatinine [Mass/Vol] 1.05 mg/dL 0.70-1.30 [facility] Work Phone: Comment on above: The validity of the calculated GFR & GFRAA in patients over 70 years has not been determined. Clinical correlation is essential. Serum or plasma urea nitroge n measurement (mass/volume)on 06-04-2021 Urea nitrogen [Mass/Vol] 10 mg/dL 7-18 [facility] Work Phone: Thin prep Papanicolaou smear with manual screeningon 06-04-2021 Thin prep Papanicolaou smear with manual screening 20 U/L 15-37 [facility] Work Phone: Thin prep Papanicolaou smear with manual screening 8 5-15 [facility] Work Phone: Absolute lymphocyte counton 06-02-2021 Lymphocytes Auto (Unsp spec) [#/Vol] 2.37 10*3/uL 0.83-4.51 [facility] Work Phone: Basophil percentageon 2021 Basophils/100 WBC (Bld) 0.4 % 0-1 [facility] Work Phone: Bilirubin [Mass/Vol] 0.50 mg/dL 0.20-1.00 [facility] Work Phone: Comment on above: For patients on eltr ombopag therapy, use of Dimension Stringer TBIL is not recommended. Chloride [Moles/Vol] 106 mmol/L 98-107 [facility] Work Phone: Eosinophils/100 WBC (Bld) 0.5 % 0-5 [facility] Work Phone: [phone] Glucose [Mass/Vol] 110 mg/dL 74-106 [facility] Work Phone: Comment on above: Fasting Glucose resu lt from 100 to 125 mg/dL suggests IMPAIRED HOMEOSTASIS per A.D.A. criteria. Lactate [Moles/Vol] 3.8 mmol/L 0.4-2.0 [facility] Work Phone: [phone] Comment on above: Critical Result(s) C alled at: 12:22:15 06/02/2021 by: Cassidy Galan. To Angeles Fenton Results read back by same. Neutrophils (Bld) [#/Vol] 9.8 10*3/uL 2.0-7.7 [facility] Work Phone: Neutrophils/100 WBC (Bld) 76.5 % 47-70 [facility] Work Phone: Potassium [Moles/Vol] 3.6 mmol/L 3.5-5.1 [facility] Work Phone: Protein [Mass/Vol] 8.8 g/dL 6.4-8.2 [facility] Work Phone: Sodium [Moles/Vol] 138 mmol/L 136-145 [facility] Work Phone: [phone] WBC (Bld) [#/Vol] 12.8 10*3/uL 4.4-11.0 [facility] Work Phone: Blood erythrocytes count (nu mber/volume)on 06-02-2021 RBC (Bld) [#/Vol] 4.89 10*6/uL 4.6-6.2 [facility] Work Phone: Blood hemoglobin measurement (mass/volume)on 06-02-2021 Hemoglobin (Bld) [Mass/Vol] 14.9 g/dL 13.0-16.5 [facility] Work Phone: [phone] Blood lymphocytes/100 leukoc yteson 06-02-2021 Lymphocytes/100 WBC (Bld) 18.5 % 19-41 [facility] Work Phone: [phone] Blood monocytes/100 leukocyt eson 06-02-2021 Monocytes/100 WBC (Bld) 3.9 % 0-10 [facility] Work Phone: [phone] Blood platelet mean volumeon 06-02-2021 Platelet mean volume (Bld) [Entitic vol] 10.4 fL 6.2-12.0 [facility] Work Phone: [phone] Determination of erythrocyte mean corpuscular volume (MCV)on 06-02-2021 MCV (RBC) [Entitic vol] 90.6 fL 80-94 [facility] Work Phone: Hematocrit Auto (Bld) [Volum e fraction]on 06-02-2021 Hematocrit (Bld) [Volume fraction] 44.3 % 40-54 [facility] Work Phone: Laboratory - Chemistry and C hemistry - challengeon 06-02-2021 ALP [Catalytic activity/Vol] 88 U/L 45-117 [facility] Work Phone: [phone] ALT [Catalytic activity/Vol] 34 U/L 16-61 [facility] Work Phone: [phone] CO2 [Moles/Vol] 21.0 mmol/L 21.0-32.0 [facility] Work Phone: [phone] Globulin (S) [Mass/Vol] 4.4 g/dL 2.2-4.2 [facility] Work Phone: [phone] Lipase [Catalytic activity/Vol] 49 U/L 73-393 [facility] Work Phone: [phone] Urea nitrogen/Creatinine [Mass ratio] 7.3 mg/mg 10-20 [facility] Work Phone: [phone] Laboratory - Hematology and Cell countson 06-02-2021 Erythrocyte distribution width (RBC) [Entitic vol] 41.7 fL 35.1-43.9 [facility] Work Phone: [phone] Erythrocyte distribution width (RBC) [Ratio] 12.5 % 11.6-14.6 [facility] Work Phone: [phone] Immature granulocytes/100 WBC (Bld) 0.200 % 0.0-0.9 [facility] Work Phone: [phone] Comment on above: IG% - Immature Granu locytes (promyelocytes, myelocytes and metamyelocytes) > 1% indicates that a LEFT SHIFT is Present. MCH (RBC) [Entitic mass] 30.5 pg 27.0-32.0 [facility] Work Phone: [phone] Nucleated RBC/100 WBC (Bld) [Ratio] 0 % 0-5 [facility] Work Phone: [phone] MCHC Auto (RBC) [Mass/Vol]on 06-02-2021 MCHC (RBC) [Mass/Vol] 33.6 g/dL 32-36 [facility] Work Phone: [phone] Panel Informationon 06-02 Estimated Creatinine Clearance Calc 98.49 ml/min [facility] Work Phone: [phone] Estimated GFR (MDRD) Amer 104 mL/min >60 [facility] Work Phone: [phone] Comment on above: GFR Calc Estimated GFR (MDRD) Non-Af Amer 86 mL/min >60 [facility] Work Phone: Comment on above: Non- GFR Calc Platelets bldon 06-02-2021 Platelets (Bld) [#/Vol] 309 10*3/uL 150-450 [facility] Work Phone: [phone] Serum or plasma albumin ruth urement (mass/volume)on 06-02-2021 Albumin [Mass/Vol] 4.4 g/dL 3.2-5.0 [facility] Work Phone: [phone] Serum or plasma albumin/glob ulin mass ratioon 06-02-2021 Albumin/Globulin [Mass ratio] 1.0 {ratio} 0.9-2.4 [facility] Work Phone: [phone] Serum or plasma calcium ruth urement (mass/volume)on 06-02-2021 Calcium [Mass/Vol] 10.3 mg/dL 8.5-10.1 [facility] Work Phone: [phone] Serum or plasma creatinine m easurement (mass/volume)on 06-02-2021 Creatinine [Mass/Vol] 1.09 mg/dL 0.70-1.30 [facility] Work Phone: Comment on above: The validity of the calculated GFR & GFRAA in patients over 70 years has not been determined. Clinical correlation is essential. Serum or plasma urea nitroge n measurement (mass/volume)on 06-02-2021 Urea nitrogen [Mass/Vol] 8 mg/dL 7-18 [facility] Work Phone: [phone] Thin prep Papanicolaou smear with manual screeningon 06-02-2021 Thin prep Papanicolaou smear with manual screening 22 U/L 15-37 [facility] Work Phone: [phone] Thin prep Papanicolaou smear with manual screening 11 5-15 [facility] Work Phone: [phone] Absolute lymphocyte counton 05-15-2021 Lymphocytes Auto (Unsp spec) [#/Vol] 1.83 10*3/uL 0.83-4.51 [facility] Work Phone: Basophil percentageon 2021 Basophils/100 WBC (Bld) 0.3 % 0-1 [facility] Work Phone: Bilirubin [Mass/Vol] 0.30 mg/dL 0.20-1.00 [facility] Work Phone: Comment on above: For patients on eltr ombopag therapy, use of Dimension Stringer TBIL is not recommended. Chloride [Moles/Vol] 108 mmol/L 98-107 [facility] Work Phone: Eosinophils/100 WBC (Bld) 0.5 % 0-5 [facility] Work Phone: Glucose [Mass/Vol] 93 mg/dL 74-106 [facility] Work Phone: Comment on above: Please note revised GLUCOSE reference range effective 2017. Neutrophils (Bld) [#/Vol] 12.6 10*3/uL 2.0-7.7 [facility] Work Phone: Neutrophils/100 WBC (Bld) 81.5 % 47-70 [facility] Work Phone: Potassium [Moles/Vol] 3.9 mmol/L 3.5-5.1 [facility] Work Phone: Protein [Mass/Vol] 9.0 g/dL 6.4-8.2 [facility] Work Phone: Sodium [Moles/Vol] 139 mmol/L 136-145 [facility] Work Phone: WBC (Bld) [#/Vol] 15.5 10*3/uL 4.4-11.0 [facility] Work Phone: Blood erythrocytes count (nu mber/volume)on 05-15-2021 RBC (Bld) [#/Vol] 4.99 10*6/uL 4.6-6.2 [facility] Work Phone: Blood hemoglobin measurement (mass/volume)on 01-02-2022 Hemoglobin (Bld) [Mass/Vol] 15.3 g/dL 13.0-16.5 [facility] Work Phone: Blood lymphocytes/100 leukoc yteson 05-15-2021 Lymphocytes/100 WBC (Bld) 11.8 % 19-41 [facility] Work Phone: Blood monocytes/100 leukocyt eson 05-15-2021 Monocytes/100 WBC (Bld) 5.1 % 0-10 [facility] Work Phone: Blood platelet mean volumeon 05-15-2021 Platelet mean volume (Bld) [Entitic vol] 10.1 fL 6.2-12.0 [facility] Work Phone: Determination of erythrocyte mean corpuscular volume (MCV)on 05-15-2021 MCV (RBC) [Entitic vol] 90.2 fL 80-94 [facility] Work Phone: Hematocrit Auto (Bld) [Volum e fraction]on 05-15-2021 Hematocrit (Bld) [Volume fraction] 45.0 % 40-54 [facility] Work Phone: Laboratory - Chemistry and C hemistry - challengeon 05-15-2021 ALP [Catalytic activity/Vol] 87 U/L 45-117 [facility] Work Phone: ALT [Catalytic activity/Vol] 69 U/L 16-61 [facility] Work Phone: CO2 [Moles/Vol] 23.0 mmol/L 21.0-32.0 [facility] Work Phone: Globulin (S) [Mass/Vol] 4.5 g/dL 2.2-4.2 [facility] Work Phone: Lipase [Catalytic activity/Vol] 67 U/L 73-393 [facility] Work Phone: [phone] Urea nitrogen/Creatinine [Mass ratio] 11.4 mg/mg 10-20 [facility] Work Phone: Laboratory - Hematology and Cell countson 05-15-2021 Erythrocyte distribution width (RBC) [Entitic vol] 40.6 fL 35.1-43.9 [facility] Work Phone: [phone] Erythrocyte distribution width (RBC) [Ratio] 12.2 % 11.6-14.6 [facility] Work Phone: [phone] Immature granulocytes/100 WBC (Bld) 0.800 % 0.0-0.9 [facility] Work Phone: [phone] Comment on above: IG% - Immature Granu locytes (promyelocytes, myelocytes and metamyelocytes) > 1% indicates that a LEFT SHIFT is Present. MCH (RBC) [Entitic mass] 30.7 pg 27.0-32.0 [facility] Work Phone: [phone] Nucleated RBC/100 WBC (Bld) [Ratio] 0 % 0-5 [facility] Work Phone: [phone] MCHC Auto (RBC) [Mass/Vol]on 05-15-2021 MCHC (RBC) [Mass/Vol] 34.0 g/dL 32-36 [facility] Work Phone: No Panel Informationon 05-15 Estimated Creatinine Clearance Calc 94.17 ml/min [facility] Work Phone: [phone] Estimated GFR (MDRD) Amer 99 mL/min >60 [facility] Work Phone: [phone] Comment on above: GFR Calc Estimated GFR (MDRD) Non-Af Amer 81 mL/min >60 [facility] Work Phone: [phone] Comment on above: Non- GFR Calc Platelets bldon 05-15-2021 Platelets (Bld) [#/Vol] 354 10*3/uL 150-450 [facility] Work Phone: [phone] Serum or plasma albumin ruth urement (mass/volume)on 05-15-2021 Albumin [Mass/Vol] 4.5 g/dL 3.2-5.0 [facility] Work Phone: [phone] Serum or plasma albumin/glob ulin mass ratioon 05-15-2021 Albumin/Globulin [Mass ratio] 1.0 {ratio} 0.9-2.4 [facility] Work Phone: Serum or plasma calcium ruth urement (mass/volume)on 05-15-2021 Calcium [Mass/Vol] 10.3 mg/dL 8.5-10.1 [facility] Work Phone: Serum or plasma creatinine m easurement (mass/volume)on 05-15-2021 Creatinine [Mass/Vol] 1.14 mg/dL 0.70-1.30 [facility] Work Phone: Comment on above: The validity of the calculated GFR & GFRAA in patients over 70 years has not been determined. Clinical correlation is essential. Serum or plasma urea nitroge n measurement (mass/volume)on 05-15-2021 Urea nitrogen [Mass/Vol] 13 mg/dL 7-18 [facility] Work Phone: Thin prep Papanicolaou smear with manual screeningon 05-15-2021 Thin prep Papanicolaou smear with manual screening 30 U/L 15-37 [facility] Work Phone: Thin prep Papanicolaou smear with manual screening 8 5-15 [facility] Work Phone: .Auto Diffon 10-24-2020 Basophil, Absolute 0.10 10 3/mcL Normal 0.00-0.19 [facility] ([place]) Comment on above: Performed By: #### C BC, ADIFF, ANEU, LIP, CMP #### [address] [address] #### GFR #### [address] [address] Basophils/100 WBC (Bld) 0.6 % Normal 0.0-2.5 [facility] ([place]) Comment on above: Performed By: #### C BC, ADIFF, ANEU, LIP, CMP #### [address] [address] #### GFR #### [address] [address] Eosinophil, Absolute 0.10 10 3/mcL Normal 0.00-0.40 [facility] ([place]) Comment on above: Performed By: #### C BC, ADIFF, ANEU, LIP, CMP #### [place] [address] #### GFR #### [address] [address] Eosinophils/100 WBC (Bld) 0.7 % Normal 0.0-7.0 [facility] ([place]) Comment on above: Performed By: #### C BC, ADIFF, ANEU, LIP, CMP #### [place] [address] #### GFR #### [address] [address] Lymphocyte, Absolute 1.70 10 3/mcL Normal 0.77-3.85 [facility] ([place]) Comment on above: Performed By: #### C BC, ADIFF, ANEU, LIP, CMP #### [place] [address] #### GFR #### [address] [address] Lymphocytes/100 WBC (Bld) 16.0 % Normal 10.0-50.0 [facility] ([place]) Comment on above: Performed By: #### C BC, ADIFF, ANEU, LIP, CMP #### [place] [address] #### GFR #### [address] [address] Monocyte, Absolute 0.50 10 3/mcL Normal 0.15-1.00 [facility] ([place]) Comment on above: Performed By: #### C BC, ADIFF, ANEU, LIP, CMP #### [place] [address] #### GFR #### [address] [address] Monocytes/100 WBC (Bld) 4.8 % Normal 1.7-13.0 [facility] ([place]) Comment on above: Performed By: #### C BC, ADIFF, ANEU, LIP, CMP #### [address] [address] #### GFR #### [address] [address] Neutrophils/100 WBC (Bld) 77.9 % Normal 37.0-80.0 [facility] ([place]) Comment on above: Performed By: #### C BC, ADIFF, ANEU, LIP, CMP #### [address] [address] #### GFR #### [address] [address] .GFRon 10-24-2020 GFR 90 ml/min/1.73sqm Normal [facility] ([place]) Comment on above: Result Comment: GFR Population mean for , Non- Americans Ages 20-29 = 116 mL/min/1.73 sq.m. Ages 30-39 = 107 mL/min/1.73 sq.m. Ages 40-49 = 99 mL/min/1.73 sq.m. Ages 50-59 = 93 mL/min/1.73 sq.m. Ages 60-69 = 85 mL/min/1.73 sq.m. Ages 70+ = 75 mL/min/1.73 sq.m. Chronic Kidney Disease: Less than 60 mL/min/1.73 square meters End Stage Renal Disease: Less than 15 mL/min/1.73 square meters Performed By: #### C BC, ADIFF, ANEU, LIP, CMP #### [address] [address] #### GFR #### [address] [address] GFR Non- 74 ml/min/1.73sqm Normal [facility] ([place]) Comment on above: Result Comment: GFR Population mean for , Non- Americans Ages 20-29 = 116 mL/min/1.73 sq.m. Ages 30-39 = 107 mL/min/1.73 sq.m. Ages 40-49 = 99 mL/min/1.73 sq.m. Ages 50-59 = 93 mL/min/1.73 sq.m. Ages 60-69 = 85 mL/min/1.73 sq.m. Ages 70+ = 75 mL/min/1.73 sq.m. Chronic Kidney Disease: Less than 60 mL/min/1.73 square meters End Stage Renal Disease: Less than 15 mL/min/1.73 square meters Performed By: #### C BC, ADIFF, ANEU, LIP, CMP #### [place] [address] #### GFR #### [place] [address] .NEUABSon 10-24-2020 Neutrophil, Absolute 8.20 10 3/mcL High 2.85-6.16 A [facility] ([place]) Comment on above: Performed By: #### C BC, ADIFF, ANEU, LIP, CMP #### [place] [address] #### GFR #### [place] [address] CBCon 10-24-2020 Erythrocyte distribution width (RBC) [Ratio] 13.3 % Normal 11.5-14.5 [facility] ([place]) Comment on above: Performed By: #### C BC, ADIFF, ANEU, LIP, CMP #### [place] [address] #### GFR #### [place] [address] Hematocrit (Bld) [Volume fraction] 44.0 % Normal 42.0-52.0 [facility] ([place]) Comment on above: Performed By: #### C BC, ADIFF, ANEU, LIP, CMP #### [place] [address] #### GFR #### [place] [address] Hgb 14.9 G/dL Normal 14.0-18.0 [facility] ([place]) Comment on above: Performed By: #### C BC, ADIFF, ANEU, LIP, CMP #### [place] [address] #### GFR #### [address] [address] MCH (RBC) [Entitic mass] 31.6 pg High 27.0-31.2 [facility] ([place]) Comment on above: Performed By: #### C BC, ADIFF, ANEU, LIP, CMP #### [place] [address] #### GFR #### [place] [address] MCHC 33.9 G/dL Normal 31.8-35.4 [facility] ([place]) Comment on above: Performed By: #### C BC, ADIFF, ANEU, LIP, CMP #### [place] [address] #### GFR #### [place] [address] MCV (RBC) [Entitic vol] 93.2 fL Normal 80.0-94.0 A [facility] ([place]) Comment on above: Performed By: #### C BC, ADIFF, ANEU, LIP, CMP #### [place] [address] #### GFR #### [place] [address] Platelet 329 10 3/mcL Normal 130-400 [facility] ([place]) Comment on above: Performed By: #### C BC, ADIFF, ANEU, LIP, CMP #### [place] [address] #### GFR #### [place] [address] Platelet mean volume (Bld) [Entitic vol] 8.5 fL Normal 7.4-10.4 [facility] ([place]) Comment on above: Performed By: #### C BC, ADIFF, ANEU, LIP, CMP #### [place] [address] #### GFR #### [place] [address] RBC 4.72 10 6/mcL Normal 4.04-6.13 [facility] ([place]) Comment on above: Performed By: #### C BC, ADIFF, ANEU, LIP, CMP #### [place] [address] #### GFR #### [place] [address] WBC 10.50 10 3/mcL Normal 4.60-10.80 [facility] ([place]) Comment on above: Performed By: #### C BC, ADIFF, ANEU, LIP, CMP #### [place] [address] #### GFR #### [place] [address] CMPon 10-24-2020 Albumin Level 4.4 G/dL Normal 3.5-5.0 [facility] ([place]) Comment on above: Performed By: #### C BC, ADIFF, ANEU, LIP, CMP #### [place] [address] #### GFR #### [place] [address] Albumin/Globulin [Mass ratio] 1.2 {ratio} Normal 1.1-2.5 [facility] ([place]) Comment on above: Performed By: #### C BC, ADIFF, ANEU, LIP, CMP #### [place] [address] #### GFR #### [address] [address] ALP [Catalytic activity/Vol] 86 U/L Normal 40-135 [facility] ([place]) Comment on above: Performed By: #### C BC, ADIFF, ANEU, LIP, CMP #### [place] [address] #### GFR #### [address] [address] ALT [Catalytic activity/Vol] 36 U/L Normal 16-63 [facility] ([place]) Comment on above: Performed By: #### C BC, ADIFF, ANEU, LIP, CMP #### [place] [address] #### GFR #### [address] [address] AST [Catalytic activity/Vol] 25 U/L Normal 10-40 [facility] ([place]) Comment on above: Performed By: #### C BC, ADIFF, ANEU, LIP, CMP #### [place] [address] #### GFR #### [place] [address] Bili Total 0.4 mg/dL Normal 0.2-1.0 [facility] ([place]) Comment on above: Result Comment: Use of this assay is not recommended for patients undergoing treatment with eltrombopag due to the potential for falsely elevated results. Performed By: #### C BC, ADIFF, ANEU, LIP, CMP #### [place] [address] #### GFR #### [place] [address] BUN/Creatinine Ratio 12 ratio Normal 7-27 [facility] [place] Comment on above: Performed By: #### C BC, ADIFF, ANEU, LIP, CMP #### [place] [address] #### GFR #### [place] [address] Calcium [Mass/Vol] 9.9 mg/dL Normal 8.4-10.2 [facility] ([place]) Comment on above: Performed By: #### C BC, ADIFF, ANEU, LIP, CMP #### [place] [address] #### GFR #### [place] [address] Chloride [Moles/Vol] 104 mmol/L Normal 98-107 [facility] [place] Comment on above: Performed By: #### C BC, ADIFF, ANEU, LIP, CMP #### [address] [address] #### GFR #### [address] [address] CO2 [Moles/Vol] 23 mmol/L Normal 22-29 [facility] ([place]) Comment on above: Performed By: #### C BC, ADIFF, ANEU, LIP, CMP #### [address] [address] #### GFR #### [address] [address] Creatinine [Mass/Vol] 1.18 mg/dL Normal 0.70-1.30 [facility] ([place]) Comment on above: Performed By: #### C BC, ADIFF, ANEU, LIP, CMP #### [address] [address] #### GFR #### [address] [address] Electrolyte Balance 15.0 mEq/L Normal [facility] ([place]) Comment on above: Performed By: #### C BC, ADIFF, ANEU, LIP, CMP #### [address] [address] #### GFR #### [address] [address] Globulin 3.7 G/dL Normal [facility] ([place]) Comment on above: Performed By: #### C BC, ADIFF, ANEU, LIP, CMP #### [address] [address] #### GFR #### [address] [address] Glucose [Mass/Vol] 103 mg/dL Normal 70-105 [facility] ([place]) Comment on above: Performed By: #### C BC, ADIFF, ANEU, LIP, CMP #### [address] [address] #### GFR #### [address] [address] Potassium [Moles/Vol] 3.9 mmol/L Normal 3.5-5.1 [facility] ([place]) Comment on above: Performed By: #### C BC, ADIFF, ANEU, LIP, CMP #### [address] [address] #### GFR #### [address] [address] Sodium [Moles/Vol] 142 mmol/L Normal 136-145 [facility] ([place]) Comment on above: Performed By: #### C BC, ADIFF, ANEU, LIP, CMP #### [address] [address] #### GFR #### [address] [address] Total Protein 8.1 G/dL Normal 6.4-8.2 [facility] ([place]) Comment on above: Performed By: #### C BC, ADIFF, ANEU, LIP, CMP #### [place] [address] #### GFR #### [address] [address] Urea nitrogen [Mass/Vol] 14 mg/dL Normal 7-18 [facility] ([place]) Comment on above: Performed By: #### C BC, ADIFF, ANEU, LIP, CMP #### [address] [address] #### GFR #### [address] [address] LIPon 10-24-2020 Lipase Level 59 U/L Low 73-393 [facility] ([place]) Comment on above: Performed By: #### C BC, ADIFF, ANEU, LIP, CMP #### [address] [address] #### GFR #### [address] [address] XR ABDOMEN SERIES W/CHEST 1 VIEWon 10-24-2020 XR ABDOMEN SERIES W/CHEST 1 VIEW ORIGINAL XR ABDOMEN SERIES W/CHEST 1 VIEW CLINICAL STATEMENT: Abdominal pain COMPARISON: None FINDINGS: Heart and mediastinal silhouette are normal. Lungs are clear. No pleural fluid. There is a nonobstructive bowel gas pattern. No organomegaly, pathologic abdominal calcification, free air or pneumatosis. There are no abnormal air collections. The bones are unremarkable. IMPRESSION:No visible acute process. Interpreted By: Leland Christopher MD Preliminary Report By: Leland Christopher MD Electronically Signed By: Leland Christopher MD Dictated Date: 10/24/2020 10:06:08 AM Prelim Date: 10/24/2020 10:06:08 AM Sign Date: 10/24/2020 10:06:50 AM [facility] Amylaseon 08-25-2017 Amylase 72 U/L Normal 12-94 [facility] Comment on above: Performed By: #### 1 [id number] ####[facility] [address] [place] [address] CBC With Differentialon 08-12 Basophils Auto #/vol (Bld) 0.06 10*3/uL Normal 0.01-0.09 [facility] Comment on above: Performed By: #### 2 160543 ####[facility] [address] [place] [address] Basophils/100 WBC Auto (Bld) 0.4 % Normal 0.0-1.3 [facility] Comment on above: Performed By: #### 2 276954 ####[facility] [address] [place] [address] Eosinophils 0.03 10*3/uL Normal 0.01-0.46 [facility] Comment on above: Performed By: #### 2 991421 ####[facility] [address] [place] [address] Eosinophils/100 leukocytes 0.2 % Normal 0.0-6.7 [facility] Comment on above: Performed By: #### 2 952160 ####[facility] [address] [place] [address] Erythrocyte distribution width Auto Ratio (RBC) 12.2 % Normal 12.0-15.4 [facility] Comment on above: Performed By: #### 2 536485 ####[facility] [address] [place] [address] Erythrocytes (RBC) 5.29 10*6/uL Normal 4.08-6.37 [facility] Comment on above: Performed By: #### 2 238264 ####[place] [address] [place] [address] Erythrocytes (RBC) 0.0 /100{WBCs} Normal [facility] Comment on above: Performed By: #### 2 780509 ####[address] [address] Erythrocytes (RBC) 0.00 10*3/uL Normal [facility] Healthcare Comment on above: Performed By: #### 2 706037 ####[address] [address] Hematocrit (HCT) 49.1 % Normal 38.4-54.9 [facility] Healthcare Comment on above: Performed By: #### 2 441997 ####[address] [address] Hemoglobin mass conc (Bld) 16.4 g/dL Normal 12.8-17.7 [facility] Healthcare Comment on above: Performed By: #### 2 588523 ####[address] [address] Imm Grans Absolute 0.07 10*3/uL Normal 0.00-0.21 [facility] Healthcare Comment on above: Performed By: #### 2 953238 ####[address] [address] Immature granulocytes #/vol (Bld) 0.5 % Normal [facility] Healthcare Comment on above: Performed By: #### 2 448977 ####[address] [address] Lymphocytes 1.21 10*3/uL Normal 0.40-2.84 [facility] Comment on above: Performed By: #### 2 397514 ####[address] [address] Lymphocytes/100 leukocytes 8.2 % Low 9.4-41.1 [facility] Comment on above: Performed By: #### 2 580809 ####[facility] [address] [place] [address] MCH 31.0 pg Normal 27.5-32.9 [facility] Comment on above: Performed By: #### 2 243131 ####[facility] [address] [place] [address] MCHC mass conc (RBC) 33.4 g/dL Normal 30.5-35.4 [facility] Comment on above: Performed By: #### 2 505909 ####[facility] [address] [place] [address] MCV 92.8 fL Normal 83.3-98.2 [facility] Comment on above: Performed By: #### 2 740982 ####[facility] Apz[address] [place] [address] Monocytes 0.42 10*3/uL Normal 0.25-1.33 [facility] Comment on above: Performed By: #### 2 026159 ####[facility] Bkb[address] [place] [address] Monocytes/100 leukocytes 2.9 % Low 3.0-16.2 [facility] Comment on above: Performed By: #### 2 412891 ####[facility] [address] [place] [address] Neutrophils 12.93 10*3/uL High 2.22-7.53 [facility] Comment on above: Performed By: #### 2 413402 ####[facility] S[address] [place] [address] Neutrophils/100 leukocytes 87.8 % High 46.2-79.1 [facility] Comment on above: Performed By: #### 2 735820 ####[facility] [address] [place] [address] Platelet mean volume (PMV) 10.0 fL Normal 9.9-12.1 [facility] Comment on above: Performed By: #### 2 362696 ####[facility] [address] [place] [address] Platelets 268 10*3/uL Normal 155-404 [facility] Comment on above: Performed By: #### 2 361611 ####[facility] [address] [place] [address] RDW SD 42.1 fL Normal 39.3-48.6 [facility] Comment on above: Performed By: #### 2 466780 ####[facility] [address] [place] [address] WBC (Leukocytes) 14.7 10*3/uL High 4.2-11.0 [facility] Comment on above: Performed By: #### 2 099483 ####[facility] Hyj[address] [place] [address] [place] ABDOMEN/PELVIS W/O CONTRA STon 08-25-2017 CT ABDOMEN/PELVIS W/O CONTRAST DATE OF EXAM: Aug 25 2017 3:38PMCLINICAL HISTORY/ Name: MANVA REBOLLEDOSTUDY:CT ABDOMEN/PELVIS W/O CONTRAST; 08/25/2017 3:38 pmINDICATION:Abdominal Pain.COMPARISON:None.A CCESSION NUMBER(S):[id number]:CONOR CLAYTON:CT of the abdomen and pelvis was performed. Contiguous axial images were obtained at 3 mm slice thickness through the abdomen and pelvis. Coronal and sagittal reconstructions at 3 mm slice thickness were performed. The patient received no intravenous contrast.Please note evaluation of the solid organs and vessels is limited in the absence of intravenous contrast. Given this caveat, the following observations are made:FINDINGS:LOWER CHEST:Clear lung bases.ABDOMEN:LIVER:Un remarkableBILE DUCTS:Not dilated.GALLBLADDER:No calcified stone or definite inflammation.PANCREAS: UnremarkableSPLEEN:Unr emarkableADRENAL GLANDS:UnremarkableKID NEYS AND URETERS:Unremarkable kidneys without hydronephrosis. No urinary tract calculus.PELVIS:BLADDE R:Partially distended.REPRODUCTIVE ORGANS:No visualized gross abnormality.BOWEL:No findings of bowel obstruction or inflammation. Appendix not discretely identified. No secondary findings of appendicitis. Unremarkable mesentery.VESSELS:No abdominal aortic aneurysm.PERITONEUM AND RETROPERITONEUM:No free fluid or free air.No abdominal or pelvic lymphadenopathy.BONE AND ABDOMINAL WALL:No acute skeletal findings.CONCLUSION: IMPRESSION:1. No acute findings in the abdomen or pelvis identified on noncontrast exam. Normal [facility] Comprehensive Metabolic Pane kirit 08-25-2017 Alan[place] aminotransferase (ALT) 24 U/L Normal 10-52 [facility] Comment on above: Performed By: #### 1 [id number] ####[facility] [address] [place] [address] Albumin 4.5 g/dL Normal 3.4-5.0 [facility] Comment on above: Performed By: #### 1 252860 ####[facility] [address] [place] [address] Albumin/Globulin Ratio 1.6 {ratio} Normal 0.9-2.4 [facility] Comment on above: Performed By: #### 1 437166 ####[facility] [address] [place] [address] Alkaline phosphatase (ALP) 67 U/L Normal 45-117 [facility] Comment on above: Performed By: #### 1 399908 ####[facility] [address] [place] [address] Anion gap 12 mmol/L Normal 10-20 [facility] Comment on above: Performed By: #### 1 900932 ####[facility] [address] [place] [address] Aspartate aminotransferase (AST) 22 U/L Normal 13-39 [facility] Comment on above: Performed By: #### 1 719841 ####[facility] [address] [place] [address] Bicarbonate (HCO3) 26 mmol/L Normal 21-32 [facility] Comment on above: Performed By: #### 1 627553 ####[facility] [address] [place] [address] Bilirubin (total) 0.3 mg/dL Normal 0.0-1.2 [facility] Comment on above: Performed By: #### 1 243355 ####[facility] [address] [place] [address] BUN/Creatinine Ratio 14 mg/mg Normal 5-25 [facility] Comment on above: Performed By: #### 1 404771 ####[facility] [address] [facility] [place] [address] Calcium 9.8 mg/dL Normal 8.6-10.3 [facility] Healthcare Comment on above: Performed By: #### 1 609083 ####[facility] [address] [place] [address] Chloride 105 mmol/L Normal 98-107 [facility] Healthcare Comment on above: Performed By: #### 1 298685 ####[facility] [address] [place] [address] Creatinine 0.88 mg/dL Normal 0.50-1.30 [facility] Healthcare Comment on above: Performed By: #### 1 267051 ####[facility] [address] [place] [address] eGFR (MDRD) mL/min/{1.73_m2} Normal [facility] Healthcare Comment on above: Result Comment: Inte rpretation for Chronic Kidney Disease:Stages 1&2 >60 Healthy or potential kidney damage.Mild decrease of GFR.Stage 3 30-59 Moderate decrease of GFR.Stage 4 15-29 Severe decrease of GFR.Stage 5 <15 Kidney failure or on dialysis. Performed By: #### 1 373986 ####[facility] [address] [place] [address] Glucose mass conc 109 mg/dL High 70-100 [facility] Healthcare Comment on above: Performed By: #### 1 552674 ####[facility] [address] [place] [address] Potassium molar conc 4.4 mmol/L Normal 3.5-5.1 [facility] Healthcare Comment on above: Performed By: #### 1 560418 ####[facility] [address] [place] [address] Protein 7.3 g/dL Normal 6.4-8.2 [facility] Healthcare Comment on above: Performed By: #### 1 953619 ####[facility] [address] [place] [address] Sodium 139 mmol/L Normal 136-145 [facility] Comment on above: Performed By: #### 1 567088 ####[facility] [address] [place] [address] Urea nitrogen 12 mg/dL Normal 6-23 [facility] Comment on above: Performed By: #### 1 583340 ####[facility] [address] [place] [address] Lipaseon 08-25-2017 Lipase 6 U/L Low 9-82 [facility] Comment on above: Performed By: #### 1 048703 ####[facility] [address] [place] [address] CT HEAD/BRAIN W/O CONTRASTon 08-19-2017 CT HEAD/BRAIN W/O CONTRAST DATE OF EXAM: Aug 19 2017 8:39AMCLINICAL HISTORY/ Name: MANAV REBOLLEDOSTUDY:CT HEAD/BRAIN W/O CONTRAST; 08/19/2017 8:39 amINDICATION:for bleed.COMPARISON:Prior exam from 01/17/2007. ELLIE CLINICIAN:NGA FLORESTECHERIN:Virgilio fiore axial images were obtained from the skull base through the vertex. Brain, subdural, and bone windows were reviewed.FINDINGS:INTR ACRANIAL:The ventricles, sulci and basal cisterns were within normal limits.No acute intracranial bleed, midline shift, or focal mass effect.No destructive bone lesion. No depressed skull fracture.No abnormal skull base arterial calcifications.EXTRACR ANIAL:There is complete opacification of the left frontal sinus, and there is lobulated mucosal thickening as well as smooth mucosal thickening throughout the bilateral sphenoid sinuses. There is mucosal thickening in several left ethmoid air cells. The right frontal sinus was clear. The maxillary sinuses were not completely imaged. Bilateral mastoids were patent.CONCLUSION: IMPRESSION:Interval development of extensive paranasal sinusitis as described.No acute intracranial bleed or focal mass effect. Normal [facility] Basic Metabolic Panelon 01-13 Anion gap 10 mmol/L Normal 10-20 [facility] Comment on above: Performed By: #### 1 [id number] ####[facility] [address] [place] [address] Bicarbonate (HCO3) 31 mmol/L Normal 21-32 [facility] Comment on above: Performed By: #### 1 186460 ####[facility] [address] [place] [address] BUN/Creatinine Ratio 5 mg/mg Normal 5-25 [facility] Comment on above: Performed By: #### [id number] ####[facility] [address] [place] [address] Calcium 9.0 mg/dL Normal 8.6-10.3 [facility] Comment on above: Performed By: #### 1 382519 ####[facility] [address] [place] [address] Chloride 104 mmol/L Normal 98-107 [facility] Comment on above: Performed By: #### 1 987840 ####[facility] [address] [place] [address] Creatinine 1.06 mg/dL Normal 0.50-1.30 [facility] Comment on above: Performed By: #### 1 474957 ####[facility] [address] [place] [address] eGFR (MDRD) mL/min/{1.73_m2} Normal [facility] Comment on above: Result Comment: Inte rpretation for Chronic Kidney Disease:Stages 1&2 >60 Healthy or potential kidney damage.Mild decrease of GFR.Stage 3 30-59 Moderate decrease of GFR.Stage 4 15-29 Severe decrease of GFR.Stage 5 <15 Kidney failure or on dialysis. Performed By: #### 1 650455 ####[facility] [address] [place] [address] Glucose mass conc 71 mg/dL Normal 70-100 [facility] Comment on above: Performed By: #### 1 616362 ####[facility] [address]ft[address] [place] [address] Potassium molar conc 4.1 mmol/L Normal 3.5-5.1 [facility] Comment on above: Performed By: #### [id number] ####[facility] [address] [place] [address] Sodium 141 mmol/L Normal 136-145 [facility] Healthcare Comment on above: Performed By: #### 1 046055 ####[facility] [address] [place] [address] Urea nitrogen 5 mg/dL Low 6-23 [facility] Healthcare Comment on above: Performed By: #### 1 845051 ####[place] [address] [place] [address] CBC With Differentialon 01-13 Basophils Auto #/vol (Bld) 0.06 10*3/uL Normal 0.01-0.09 [facility] Healthcare Comment on above: Performed By: #### 2 479632 ####[place] [address] [place] [address] Basophils/100 WBC Auto (Bld) 0.6 % Normal 0.0-1.3 [facility] Healthcare Comment on above: Performed By: #### 2 144678 ####[address] [address] Eosinophils 0.14 10*3/uL Normal 0.01-0.46 [facility] Healthcare Comment on above: Performed By: #### 2 036942 ####[address] [address] Eosinophils/100 leukocytes 1.5 % Normal 0.0-6.7 [facility] Healthcare Comment on above: Performed By: #### 2 149150 ####[place] [address] [place] [address] Erythrocyte distribution width Auto Ratio (RBC) 12.6 % Normal 12.0-15.4 [facility] Healthcare Comment on above: Performed By: #### 2 244756 ####[facility] T[address] [place] [address] Erythrocytes (RBC) 4.54 10*6/uL Normal 4.08-6.37 [facility] Healthcare Comment on above: Performed By: #### 2 420455 ####[facility] [address]uc[address] [place] [address] Erythrocytes (RBC) 0.00 10*3/uL Normal [facility] Healthcare Comment on above: Performed By: #### 2 519457 ####[facility] B[address] [place] [address] Erythrocytes (RBC) 0.0 /100{WBCs} Normal [facility] Comment on above: Performed By: #### 2 825200 ####[facility] S[address] [place] [address] Hematocrit (HCT) 43.3 % Normal 38.4-54.9 [facility] Healthcare Comment on above: Performed By: #### 2 650802 ####[facility] [address] [place] [address] Hemoglobin mass conc (Bld) 14.7 g/dL Normal 12.8-17.7 [facility] Healthcare Comment on above: Performed By: #### 2 659472 ####[facility] M[address] [place] [address] Imm Grans Absolute 0.03 10*3/uL Normal 0.00-0.21 [facility] Healthcare Comment on above: Performed By: #### 2 960035 ####[facility] [address] [place] [address] Immature granulocytes #/vol (Bld) 0.3 % Normal [facility] Healthcare Comment on above: Performed By: #### 2 521562 ####[facility] E[address] [place] [address] Lymphocytes 1.68 10*3/uL Normal 0.40-2.84 [facility] Healthcare Comment on above: Performed By: #### 2 850803 ####[facility] [address] [place] [address] Lymphocytes/100 leukocytes 17.6 % Normal 9.4-41.1 [facility] Comment on above: Performed By: #### 2 009100 ####[facility] Z[address] [place] [address] MCH 32.4 pg Normal 27.5-32.9 [facility] Comment on above: Performed By: #### 2 [id number] ####[facility] [address] [place] [address] MCHC mass conc (RBC) 33.9 g/dL Normal 30.5-35.4 [facility] Healthcare Comment on above: Performed By: #### 2 367335 ####[facility] [address] [place] [address] MCV 95.4 fL Normal 83.3-98.2 [facility] Healthcare Comment on above: Performed By: #### 2 [id number] ####[facility] [address] [place] [address] Monocytes 0.58 10*3/uL Normal 0.25-1.33 [facility] Healthcare Comment on above: Performed By: #### 2 287872 ####[facility] [address] [place] [address] Monocytes/100 leukocytes 6.1 % Normal 3.0-16.2 [facility] Healthcare Comment on above: Performed By: #### [id number] ####[facility] [address] [place] [address] Neutrophils 7.07 10*3/uL Normal 2.22-7.53 [facility] Healthcare Comment on above: Performed By: #### [id number] ####[facility] [address] [place] [address] Neutrophils/100 leukocytes 73.9 % Normal 46.2-79.1 [facility] Healthcare Comment on above: Performed By: #### [id number] ####[facility] [address] [place] [address] Platelet mean volume (PMV) 10.3 fL Normal 9.9-12.1 [facility] Healthcare Comment on above: Performed By: #### [id number] ####[facility] [address] [place] [address] Platelets 254 10*3/uL Normal 155-404 [facility] Healthcare Comment on above: Performed By: #### [id number] ####[facility] [address] [place] [address] RDW SD 44.2 fL Normal 39.3-48.6 [facility] Healthcare Comment on above: Performed By: #### [id number] ####[facility] [address] [place] [address] WBC (Leukocytes) 9.6 10*3/uL Normal 4.2-11.0 [facility] Comment on above: Performed By: #### [id number] ####[facility] [id number] [place] [id number] Culture Bloodon 02-09-2017 Culture Blood STATUS: FINAL REPORT SITE: SAME SOURCE SOURCE: Blood-line draw Culture Blood: No growth after 5 days of incubation. Normal [facility] Healthcare Comment on above: Performed By: #### [id number] ####[facility] [address] [place] [address] Culture Blood STATUS: FINAL REPORT SITE: SAME SOURCE SOURCE: Blood Specimen Culture Blood: No growth after 5 days of incubation. Normal [facility] Healthcare Comment on above: Performed By: #### [id number] ####[facility] [address] [place] [address] Culture Woundon 02-09-2017 Culture Wound STATUS: FINAL REPORT SITE: SAME SOURCE SOURCE: Abscess Gram stain, direct specimen: 2+ Epithelial cells Rare WBC's Rare Gram positive cocci Culture Wound: No Growth Normal [facility] Healthcare Comment on above: Performed By: #### [id number] ####[facility] [address] [place] [address] Vital Signs Date Time Vital Sign Value Performing Clinician Facility 09-15-2024 07:43-0400 Body temperature 98.1 [degF] Brayden Potter MD Work Phone: [facility] 09-15-2024 07:43-0400 Body weight 101.9 kg Brayden Potter MD Work Phone: [facility] 09-15-2024 07:43-0400 Diastolic blood pressure 80 mm[Hg] Brayden Potter MD Work Phone: [facility] 09-15-2024 07:43-0400 Heart rate 73 /min Brayden Pottre MD Work Phone: [facility] 09-15-2024 07:43-0400 Respiratory rate 16 /min Brayden Potter MD Work Phone: [facility] 09-15-2024 07:43-0400 SaO2% (BldA) [Mass fraction] 98 % Brayden Potter MD Work Phone: [facility] 09-15-2024 07:43-0400 Systolic blood pressure 130 mm[Hg] Brayden Potter MD Work Phone: [facility] 07-30-2023 04:02-0400 Body temperature 98 [degF] [facility] 07-30-2023 04:02-0400 Diastolic blood pressure 90 mm[Hg] [facility] 07-30-2023 04:02-0400 Heart rate 52 /min [facility] 07-30-2023 04:02-0400 Respiratory rate 16 /min [facility] 07-30-2023 04:02-0400 SaO2% (BldA) [Mass fraction] 100 % [facility] 07-30-2023 04:02-0400 Systolic blood pressure 148 mm[Hg] [facility] 07-30-2023 01:14-0400 Body height 175.26 cm [facility] 07-30-2023 01:14-0400 Body mass index (BMI) [Ratio] 29.3 kg/m2 [facility] 07-30-2023 01:14-0400 Body weight 90.2 kg [facility] 04-01-2023 10:26-0500 Diastolic blood pressure 77 mm[Hg] [facility] 04-01-2023 10:26-0500 Heart rate 84 /min [facility] 04-01-2023 10:26-0500 Respiratory rate 14 /min [facility] 04-01-2023 10:26-0500 SaO2% (BldA) [Mass fraction] 99 % [facility] 04-01-2023 10:26-0500 Systolic blood pressure 136 mm[Hg] [facility] 04-01-2023 07:08-0500 Body height 175.26 cm [facility] 04-01-2023 07:08-0500 Body mass index (BMI) [Ratio] 30.5 kg/m2 [facility] 04-01-2023 07:08-0500 Body temperature 97.4 [degF] [facility] 04-01-2023 07:08-0500 Body weight 93.93 kg [facility] 03-30-2023 23:32-0500 Body height 175.26 cm [facility] 03-30-2023 23:32-0500 Body mass index (BMI) [Ratio] 30 kg/m2 [facility] 03-30-2023 23:32-0500 Body temperature 98 [degF] [facility] 03-30-2023 23:32-0500 Body weight 92.3 kg [facility] 03-30-2023 23:32-0500 Diastolic blood pressure 81 mm[Hg] [facility] 03-30-2023 23:32-0500 Heart rate 100 /min [facility] 03-30-2023 23:32-0500 Respiratory rate 16 /min [facility] 03-30-2023 23:32-0500 SaO2% (BldA) [Mass fraction] 99 % [facility] 03-30-2023 23:32-0500 Systolic blood pressure 154 mm[Hg] [facility] 09-18-2022 16:32-0400 Diastolic blood pressure 87 mm[Hg] [facility] 09-18-2022 16:32-0400 Systolic blood pressure 138 mm[Hg] [facility] 09-18-2022 13:58-0400 Heart rate 80 /min [facility] 09-18-2022 13:58-0400 Respiratory rate 20 /min [facility] 09-18-2022 13:58-0400 SaO2% (BldA) [Mass fraction] 100 % [facility] 09-18-2022 13:52-0400 Body height 175.26 cm [facility] 09-18-2022 13:52-0400 Body mass index (BMI) [Ratio] 31.1 kg/m2 [facility] 09-18-2022 13:52-0400 Body temperature 97.8 [degF] [facility] 09-18-2022 13:52-0400 Body weight 95.6 kg [facility] 2022 06:20-0500 Diastolic blood pressure 62 mm[Hg] [facility] 2022 06:20-0500 Heart rate 64 /min [facility] 2022 06:20-0500 Respiratory rate 18 /min [facility] 2022 06:20-0500 SaO2% (BldA) [Mass fraction] 100 % [facility] 2022 06:20-0500 Systolic blood pressure 134 mm[Hg] [facility] 2022 03:28-0500 Body height 175.26 cm [facility] 2022 03:28-0500 Body mass index (BMI) [Ratio] 32.5 kg/m2 [facility] 2022 03:28-0500 Body temperature 97.6 [degF] [facility] 2022 03:28-0500 Body weight 100.1 kg [facility] 06-24-2022 06:18-0500 Body height 175.26 cm [facility] 06-24-2022 06:18-0500 Body mass index (BMI) [Ratio] 31.8 kg/m2 [facility] 06-24-2022 06:18-0500 Body temperature 96.9 [degF] [facility] 06-24-2022 06:18-0500 Body weight 97.7 kg [facility] 06-24-2022 06:18-0500 Diastolic blood pressure 77 mm[Hg] [facility] 06-24-2022 06:18-0500 Heart rate 66 /min [facility] 06-24-2022 06:18-0500 Respiratory rate 17 /min [facility] 06-24-2022 06:18-0500 SaO2% (BldA) [Mass fraction] 100 % [facility] 06-24-2022 06:18-0500 Systolic blood pressure 147 mm[Hg] [facility] 06-15-2022 15:28-0500 Diastolic blood pressure 82 mm[Hg] [facility] 06-15-2022 15:28-0500 Heart rate 85 /min [facility] 06-15-2022 15:28-0500 Respiratory rate 18 /min [facility] 06-15-2022 15:28-0500 SaO2% (BldA) [Mass fraction] 100 % [facility] 06-15-2022 15:28-0500 Systolic blood pressure 122 mm[Hg] [facility] 06-15-2022 12:32-0500 Body height 175.26 cm [facility] 06-15-2022 12:32-0500 Body mass index (BMI) [Ratio] 31.7 kg/m2 [facility] 06-15-2022 12:32-0500 Body temperature 97 [degF] [facility] 06-15-2022 12:32-0500 Body weight 97.52 kg [facility] 06-10-2022 13:54-0500 Respiratory rate 16 /min [facility] 06-10-2022 11:15-0500 Body height 175.26 cm [facility] 06-10-2022 11:15-0500 Body mass index (BMI) [Ratio] 31 kg/m2 [facility] 06-10-2022 11:15-0500 Body temperature 97.2 [degF] [facility] 06-10-2022 11:15-0500 Body weight 95.25 kg [facility] 06-10-2022 11:15-0500 Diastolic blood pressure 101 mm[Hg] [facility] 06-10-2022 11:15-0500 Heart rate 75 /min [facility] 06-10-2022 11:15-0500 SaO2% (BldA) [Mass fraction] 100 % [facility] 06-10-2022 11:15-0500 Systolic blood pressure 154 mm[Hg] [facility] 05-27-2022 13:47-0500 Diastolic blood pressure 88 mm[Hg] [facility] 05-27-2022 13:47-0500 Systolic blood pressure 138 mm[Hg] [facility] 05-27-2022 12:37-0500 Heart rate 85 /min [facility] 05-27-2022 12:37-0500 Respiratory rate 16 /min [facility] 05-27-2022 12:37-0500 SaO2% (BldA) [Mass fraction] 98 % [facility] 05-27-2022 10:18-0500 Body mass index (BMI) [Ratio] 27.2 kg/m2 [facility] 05-27-2022 10:18-0500 Body temperature 97.6 [degF] [facility] 05-27-2022 10:18-0500 Body weight 86.18 kg [facility] 05-05-2022 21:20-0500 Respiratory rate 14 /min Dr. Mikayla Gill Work Phone: [facility] 05-05-2022 19:54-0500 Diastolic blood pressure 95 mm[Hg] Dr. Mikayla Gill Work Phone: [facility] 05-05-2022 19:54-0500 Heart rate 66 /min Dr. Mikayla Gill Work Phone: [facility] 05-05-2022 19:54-0500 SaO2% (BldA) [Mass fraction] 100 % Dr. Mikayla Gill Work Phone: [facility] 05-05-2022 19:54-0500 Systolic blood pressure 154 mm[Hg] Dr. Mikayla Gill Work Phone: [facility] 05-05-2022 19:34-0500 Body height 175.[address] Mikayla Gill Work Phone: [facility] Work Phone: 05-05-2022 19:34-0500 Body mass index (BMI) [Ratio] 32.4 kg/m2 Dr. Mikayla Gill Work Phone: [facility] 05-05-2022 19:34-0500 Body temperature 97.1 [degF] Dr. Mikayla Gill Work Phone: [facility] 05-05-2022 19:34-0500 Body weight 99.[address] Mikayla Gill Work Phone: [facility] 04-30-2022 10:53-0500 Body temperature 99.61 [degF] Candace Athy PA-C Work Phone: [facility] 04-30-2022 10:53-0500 Body weight 98.88 kg Candace Athy PA-C Work Phone: [facility] 04-30-2022 10:53-0500 Diastolic blood pressure 88 mm[Hg] Candace Athy PA-C Work Phone: [facility] 04-30-2022 10:53-0500 Heart rate 86 /min Candace Athy PA-C Work Phone: [facility] 04-30-2022 10:53-0500 Respiratory rate 16 /min Candace Athy PA-C Work Phone: [facility] 04-30-2022 10:53-0500 SaO2% (BldA) [Mass fraction] 98 % Candace Athy PA-C Work Phone: [facility] 04-30-2022 10:53-0500 Systolic blood pressure 128 mm[Hg] Candace Athy PA-C Work Phone: [facility] 03-09-2022 06:05-0400 Body height 175.[address] Mikayla Gill Work Phone: [facility] Work Phone: 03-09-2022 06:05-0400 Body mass index (BMI) [Ratio] 32.5 kg/m2 Dr. Mikayla Gill Work Phone: [facility] 03-09-2022 06:05-0400 Body temperature 97.9 [degF] Dr. Mikayla Gill Work Phone: [facility] 03-09-2022 06:05-0400 Body weight 99.[address] Mikayla Gill Work Phone: [facility] 03-09-2022 06:05-0400 Diastolic blood pressure 107 mm[Hg] Dr. Mikayla Gill Work Phone: [facility] 03-09-2022 06:05-0400 Heart rate 74 /min Dr. Mikayla Gill Work Phone: [facility] 03-09-2022 06:05-0400 Respiratory rate 20 /min Dr. Mikayla Gill Work Phone: [facility] 03-09-2022 06:05-0400 SaO2% (BldA) [Mass fraction] 98 % Dr. Mikayla Gill Work Phone: [facility] 03-09-2022 06:05-0400 Systolic blood pressure 148 mm[Hg] Dr. Mikayla Gill Work Phone: [facility] 02-27-2022 09:30-0400 Body height 175.[address] Mikayla Gill Work Phone: [facility] Work Phone: 02-27-2022 09:30-0400 Body mass index (BMI) [Ratio] 30.2 kg/m2 Dr. Mikayla Gill Work Phone: [facility] 02-27-2022 09:30-0400 Body temperature 96.2 [degF] Dr. Mikayla Gill Work Phone: [facility] 02-27-2022 09:30-0400 Body weight 92.[address] Mikayla Gill Work Phone: [facility] 02-27-2022 09:30-0400 Diastolic blood pressure 93 mm[Hg] Dr. Mikayla Gill Work Phone: [facility] 02-27-2022 09:30-0400 Heart rate 60 /min Dr. Mikayla Gill Work Phone: [facility] 02-27-2022 09:30-0400 Respiratory rate 18 /min Dr. Mikayla Gill Work Phone: [facility] 02-27-2022 09:30-0400 SaO2% (BldA) [Mass fraction] 99 % Dr. Mikayla Gill Work Phone: [facility] 02-27-2022 09:30-0400 Systolic blood pressure 153 mm[Hg] Dr. Mikayla Gill Work Phone: [facility] 01-09-2022 08:56-0400 Body height 175.[address] Mikayla Gill Work Phone: [facility] Work Phone: 01-09-2022 08:56-0400 Body mass index (BMI) [Ratio] 30.2 kg/m2 Dr. Mikayla Gill Work Phone: [facility] Work Phone: 01-09-2022 08:56-0400 Body temperature 98 [degF] Dr. Mikayla Gill Work Phone: [facility] Work Phone: 01-09-2022 08:56-0400 Body weight 92.[address] Mikayla Gill Work Phone: [facility] Work Phone: 01-09-2022 08:56-0400 Diastolic blood pressure 100 mm[Hg] Dr. Mikayla Gill Work Phone: [facility] Work Phone: 01-09-2022 08:56-0400 Heart rate 67 /min Dr. Mikayla Gill Work Phone: [facility] Work Phone: 01-09-2022 08:56-0400 Respiratory rate 18 /min Dr. Mikayla Gill Work Phone: [facility] Work Phone: 01-09-2022 08:56-0400 SaO2% (BldA) [Mass fraction] 100 % Dr. Mikayla Gill Work Phone: [facility] Work Phone: 01-09-2022 08:56-0400 Systolic blood pressure 170 mm[Hg] Dr. Mikayla Gill Work Phone: [facility] Work Phone: 01-05-2022 08:08-0400 Body temperature 99 [degF] Dr. Mikayla Gill Work Phone: [facility] Work Phone: 01-05-2022 08:08-0400 Body weight 97.[address] Mikayla Gill Work Phone: [facility] Work Phone: 01-05-2022 08:08-0400 Diastolic blood pressure 78 mm[Hg] Dr. Mikayla Gill Work Phone: [facility] Work Phone: 01-05-2022 08:08-0400 Heart rate 76 /min Dr. Mikayla Gill Work Phone: [facility] Work Phone: 01-05-2022 08:08-0400 Respiratory rate 16 /min Dr. Mikayla Gill Work Phone: [facility] Work Phone: 01-05-2022 08:08-0400 SaO2% (BldA) [Mass fraction] 99 % Dr. Mikayla Gill Work Phone: [facility] Work Phone: 01-05-2022 08:08-0400 Systolic blood pressure 132 mm[Hg] Dr. Mikayla Gill Work Phone: [facility] Work Phone: 01-03-2022 16:52-0400 Diastolic blood pressure 89 mm[Hg] Dr. Mikayla Gill Work Phone: [facility] Work Phone: 01-03-2022 16:52-0400 Heart rate 80 /min Dr. Mikayla Gill Work Phone: [facility] Work Phone: 01-03-2022 16:52-0400 Respiratory rate 16 /min Dr. Mikayla Gill Work Phone: [facility] Work Phone: 01-03-2022 16:52-0400 SaO2% (BldA) [Mass fraction] 100 % Dr. Mikayla Gill Work Phone: [facility] Work Phone: 01-03-2022 16:52-0400 Systolic blood pressure 161 mm[Hg] Dr. Mikayla Gill Work Phone: [facility] Work Phone: 01-03-2022 10:05-0400 Body height 175.[address] Mikayla Gill Work Phone: [facility] Work Phone: 01-03-2022 10:05-0400 Body mass index (BMI) [Ratio] 29.5 kg/m2 Dr. Mikayla Gill Work Phone: [facility] Work Phone: 01-03-2022 10:05-0400 Body temperature 98.7 [degF] Dr. Mikayla Gill Work Phone: [facility] Work Phone: 01-03-2022 10:05-0400 Body weight 90.[address] Mikayla Gill Work Phone: [facility] Work Phone: 01-02-2022 07:46-0400 Diastolic blood pressure 63 mm[Hg] Dr. Mikayla Gill Work Phone: [facility] Work Phone: 01-02-2022 07:46-0400 Heart rate 84 /min Dr. Mikayla Gill Work Phone: [facility] Work Phone: 01-02-2022 07:46-0400 Respiratory rate 18 /min Dr. Mikayla Gill Work Phone: [facility] Work Phone: 01-02-2022 07:46-0400 SaO2% (BldA) [Mass fraction] 97 % Dr. Mikayla Gill Work Phone: [facility] Work Phone: 01-02-2022 07:46-0400 Systolic blood pressure 126 mm[Hg] Dr. Mikayla Gill Work Phone: [facility] Work Phone: 01-02-2022 06:08-0400 Body height 175.[address] Mikayla Gill Work Phone: [facility] Work Phone: 01-02-2022 06:08-0400 Body mass index (BMI) [Ratio] 31.7 kg/m2 Dr. Mikayla Gill Work Phone: [facility] Work Phone: 01-02-2022 06:08-0400 Body temperature 98.3 [degF] Dr. Mikayla Gill Work Phone: [facility] Work Phone: 01-02-2022 06:08-0400 Body weight 97.[address] Mikayla Gill Work Phone: [facility] Work Phone: 12-31-2021 12:15-0400 Diastolic blood pressure 91 mm[Hg] Dr. Mikayla Gill Work Phone: [facility] Work Phone: 12-31-2021 12:15-0400 Systolic blood pressure 132 mm[Hg] Dr. Mikayla Gill Work Phone: [facility] Work Phone: 12-31-2021 10:03-0400 Body height 175.[address] Mikayla Gill Work Phone: [facility] Work Phone: 12-31-2021 10:03-0400 Body mass index (BMI) [Ratio] 31.7 kg/m2 Dr. Mikayla Gill Work Phone: [facility] Work Phone: 12-31-2021 10:03-0400 Body temperature 97.8 [degF] Dr. Mikayla Gill Work Phone: [facility] Work Phone: 12-31-2021 10:03-0400 Body weight 97.[address] Mikayla Gill Work Phone: [facility] Work Phone: 12-31-2021 10:03-0400 Heart rate 72 /min Dr. Mikayla Gill Work Phone: [facility] Work Phone: 12-31-2021 10:03-0400 Respiratory rate 24 /min Dr. Mikayla Gill Work Phone: [facility] Work Phone: 12-31-2021 10:03-0400 SaO2% (BldA) [Mass fraction] 100 % Dr. Mikayla Gill Work Phone: [facility] Work Phone: 12-01-2021 14:02-0400 Body mass index (BMI) [Ratio] 31.9 kg/m2 Dr. Mikayla Gill Work Phone: [facility] Work Phone: 12-01-2021 14:02-0400 Body temperature 98.9 [degF] Dr. Mikayla Gill Work Phone: [facility] Work Phone: 12-01-2021 14:02-0400 Body weight 95.[address] Mikayla Gill Work Phone: [facility] Work Phone: 12-01-2021 14:02-0400 Diastolic blood pressure 92 mm[Hg] Dr. Mikayla Gill Work Phone: [facility] Work Phone: 12-01-2021 14:02-0400 Heart rate 79 /min Dr. Mikayla Gill Work Phone: [facility] Work Phone: 12-01-2021 14:02-0400 Respiratory rate 18 /min Dr. Mikayla Gill Work Phone: [facility] Work Phone: 12-01-2021 14:02-0400 SaO2% (BldA) [Mass fraction] 98 % Dr. Mikayla Gill Work Phone: [facility] Work Phone: 12-01-2021 14:02-0400 Systolic blood pressure 158 mm[Hg] Dr. Mikayla Gill Work Phone: [facility] Work Phone: 11-27-2021 10:46-0400 Body height 172.[address] Mikayla Gill Work Phone: [facility] Work Phone: 11-27-2021 10:46-0400 Body mass index (BMI) [Ratio] 32.6 kg/m2 Dr. Mikayla Gill Work Phone: [facility] Work Phone: 11-27-2021 10:46-0400 Body temperature 97.8 [degF] Dr. Mikayla Gill Work Phone: [facility] Work Phone: 11-27-2021 10:46-0400 Body weight 97.[address] Mikayla Gill Work Phone: [facility] Work Phone: 11-27-2021 10:46-0400 Diastolic blood pressure 100 mm[Hg] Dr. Mikayla Gill Work Phone: [facility] Work Phone: 11-27-2021 10:46-0400 Heart rate 72 /min Dr. Mikayla Gill Work Phone: [facility] Work Phone: 11-27-2021 10:46-0400 Respiratory rate 14 /min Dr. Mikayla Gill Work Phone: [facility] Work Phone: 11-27-2021 10:46-0400 SaO2% (BldA) [Mass fraction] 100 % Dr. Mikayla Gill Work Phone: [facility] Work Phone: 11-27-2021 10:46-0400 Systolic blood pressure 150 mm[Hg] Dr. Mikayla Gill Work Phone: [facility] Work Phone: 11-27-2021 08:40-0400 Diastolic blood pressure 72 mm[Hg] Dr. Mikayla Gill Work Phone: [facility] Work Phone: 11-27-2021 08:40-0400 Heart rate 68 /min Dr. Mikayla Gill Work Phone: [facility] Work Phone: 11-27-2021 08:40-0400 Respiratory rate 15 /min Dr. Mikayla Gill Work Phone: [facility] Work Phone: 11-27-2021 08:40-0400 SaO2% (BldA) [Mass fraction] 97 % Dr. Mikayla Gill Work Phone: [facility] Work Phone: 11-27-2021 08:40-0400 Systolic blood pressure 113 mm[Hg] Dr. Mikayla Gill Work Phone: [facility] Work Phone: 11-27-2021 07:22-0400 Body height 172.[address] Mikayla Gill Work Phone: [facility] Work Phone: 11-27-2021 07:22-0400 Body mass index (BMI) [Ratio] 72.1 kg/m2 Dr. Mikayla Gill Work Phone: [facility] Work Phone: 11-27-2021 07:22-0400 Body temperature 97.1 [degF] Dr. Mikayla Gill Work Phone: [facility] Work Phone: 11-27-2021 07:22-0400 Body weight [address] Mikayla Gill Work Phone: [facility] Work Phone: 11-23-2021 10:55-0400 Diastolic blood pressure 91 mm[Hg] Dr. Mikayla Gill Work Phone: [facility] Work Phone: 11-23-2021 10:55-0400 SaO2% (BldA) [Mass fraction] 99 % Dr. Mikayla Gill Work Phone: [facility] Work Phone: 11-23-2021 10:55-0400 Systolic blood pressure 139 mm[Hg] Dr. Mikayla Gill Work Phone: [facility] Work Phone: 11-23-2021 09:53-0400 Body height 172.[address] Mikayla Gill Work Phone: [facility] Work Phone: 11-23-2021 09:53-0400 Body mass index (BMI) [Ratio] 32.6 kg/m2 Dr. Mikayla Gill Work Phone: [facility] Work Phone: 11-23-2021 09:53-0400 Body temperature 97.5 [degF] Dr. Mikayla Gill Work Phone: [facility] Work Phone: 11-23-2021 09:53-0400 Body weight 97.[address] Mikayla Gill Work Phone: [facility] Work Phone: 11-23-2021 09:53-0400 Heart rate 51 /min Dr. Mikayla Gill Work Phone: [facility] Work Phone: 11-23-2021 09:53-0400 Respiratory rate 18 /min Dr. Mikayla Gill Work Phone: [facility] Work Phone: 11-23-2021 04:15-0400 Body height 172.[address] Mikayla Gill Work Phone: [facility] Work Phone: 11-23-2021 04:15-0400 Body mass index (BMI) [Ratio] 34.7 kg/m2 Dr. Mikayla Gill Work Phone: [facility] Work Phone: 11-23-2021 04:15-0400 Body temperature 97 [degF] Dr. Mikayla Gill Work Phone: [facility] Work Phone: 11-23-2021 04:15-0400 Body weight 103.[address] Mikayla Gill Work Phone: [facility] Work Phone: 11-23-2021 04:15-0400 Diastolic blood pressure 90 mm[Hg] Dr. Mikayla Gill Work Phone: [facility] Work Phone: 11-23-2021 04:15-0400 Heart rate 54 /min Dr. Mikayla Gill Work Phone: [facility] Work Phone: 11-23-2021 04:15-0400 Respiratory rate 15 /min Dr. Mikayla Gill Work Phone: [facility] Work Phone: 11-23-2021 04:15-0400 SaO2% (BldA) [Mass fraction] 100 % Dr. Mikayla Gill Work Phone: [facility] Work Phone: 11-23-2021 04:15-0400 Systolic blood pressure 156 mm[Hg] Dr. Mikayla Gill Work Phone: [facility] Work Phone: 11-16-2021 08:09-0400 Body temperature 97.2 [degF] Olivia Denbow PA-C Work Phone: [facility] 11-16-2021 08:09-0400 Body weight 99.79 kg Olivia Denbow PA-C Work Phone: [facility] 11-16-2021 08:09-0400 Diastolic blood pressure 80 mm[Hg] Olivia Denbow PA-C Work Phone: [facility] 11-16-2021 08:09-0400 Heart rate 62 /min Olivia Denbow PA-C Work Phone: [facility] 11-16-2021 08:09-0400 Respiratory rate 16 /min Olivia Denbow PA-C Work Phone: [facility] 11-16-2021 08:09-0400 SaO2% (BldA) [Mass fraction] 98 % Olivia Denbow PA-C Work Phone: [facility] 11-16-2021 08:09-0400 Systolic blood pressure 112 mm[Hg] Olivia Denbow PA-C Work Phone: [facility] 09-04-2021 16:11-0400 Diastolic blood pressure 94 mm[Hg] Dr. Mikayla Gill Work Phone: [facility] Work Phone: 09-04-2021 16:11-0400 Heart rate 84 /min Dr. Mikayla Gill Work Phone: [facility] Work Phone: 09-04-2021 16:11-0400 Respiratory rate 12 /min Dr. Mikayla Gill Work Phone: [facility] Work Phone: 09-04-2021 16:11-0400 SaO2% (BldA) [Mass fraction] 99 % Dr. Mikayla Gill Work Phone: [facility] Work Phone: 09-04-2021 16:11-0400 Systolic blood pressure 156 mm[Hg] Dr. Mikayla Gill Work Phone: [facility] Work Phone: 09-04-2021 14:08-0400 Body temperature 98.6 [degF] Dr. Mikayla Gill Work Phone: [facility] Work Phone: 09-04-2021 09:57-0400 Body height 172.[address] Mikayla Gill Work Phone: [facility] Work Phone: 09-04-2021 09:57-0400 Body mass index (BMI) [Ratio] 28.8 kg/m2 Dr. Mikayla Gill Work Phone: [facility] Work Phone: 09-04-2021 09:57-0400 Body weight 86.[address] Mikayla Gill Work Phone: [facility] Work Phone: 09-02-2021 01:17-0400 Diastolic blood pressure 88 mm[Hg] Dr. Mikayla Gill Work Phone: [facility] Work Phone: 09-02-2021 01:17-0400 Heart rate 82 /min Dr. Mikayla Gill Work Phone: [facility] Work Phone: 09-02-2021 01:17-0400 Respiratory rate 18 /min Dr. Mikayla Gill Work Phone: [facility] Work Phone: 09-02-2021 01:17-0400 SaO2% (BldA) [Mass fraction] 100 % Dr. Mikayla Gill Work Phone: [facility] Work Phone: 09-02-2021 01:17-0400 Systolic blood pressure 159 mm[Hg] Dr. Mikayla Gill Work Phone: [facility] Work Phone: 09-01-2021 23:12-0400 Body height 172.72 cm Dr. Mikayla Gill Work Phone: [facility] Work Phone: 09-01-2021 23:12-0400 Body mass index (BMI) [Ratio] 32.2 kg/m2 Dr. Mikayla Gill Work Phone: [facility] Work Phone: 09-01-2021 23:12-0400 Body temperature 97.2 [degF] Dr. Mikayla Gill Work Phone: [facility] Work Phone: 09-01-2021 23:12-0400 Body weight 96.[address] Mikayla Gill Work Phone: [facility] Work Phone: 07-19-2021 02:46-0500 Diastolic blood pressure 87 mm[Hg] Dr. Mikayla Gill Work Phone: [facility] Work Phone: 07-19-2021 02:46-0500 Heart rate 64 /min Dr. Mikayla Gill Work Phone: [facility] Work Phone: 07-19-2021 02:46-0500 Respiratory rate 18 /min Dr. Mikayla Gill Work Phone: [facility] Work Phone: 07-19-2021 02:46-0500 SaO2% (BldA) [Mass fraction] 98 % Dr. Mikayla Gill Work Phone: [facility] Work Phone: 07-19-2021 02:46-0500 Systolic blood pressure 156 mm[Hg] Dr. Mikayla Gill Work Phone: [facility] Work Phone: 07-19-2021 01:06-0500 Body mass index (BMI) [Ratio] 30.8 kg/m2 Dr. Mikayla Gill Work Phone: [facility] Work Phone: 07-19-2021 01:06-0500 Body temperature 97.6 [degF] Dr. Mikayla Gill Work Phone: [facility] Work Phone: 07-19-2021 01:06-0500 Body weight [address] Mikayla Gill Work Phone: [facility] Work Phone: 07-18-2021 21:07-0500 Respiratory rate 18 /min Dr. Mikayla Gill Work Phone: [facility] Work Phone: 07-18-2021 19:07-0500 Body mass index (BMI) [Ratio] 29.6 kg/m2 Dr. Mikayla Gill Work Phone: [facility] Work Phone: 07-18-2021 19:07-0500 Body temperature 98.4 [degF] Dr. Mikayla Gill Work Phone: [facility] Work Phone: 07-18-2021 19:07-0500 Body weight 88.[address] Mikayla Gill Work Phone: [facility] Work Phone: 07-18-2021 19:07-0500 Diastolic blood pressure 100 mm[Hg] Dr. Mikayla Gill Work Phone: [facility] Work Phone: 07-18-2021 19:07-0500 Heart rate 75 /min Dr. Mikayla Gill Work Phone: [facility] Work Phone: 07-18-2021 19:07-0500 SaO2% (BldA) [Mass fraction] 100 % Dr. Mikayla Gill Work Phone: [facility] Work Phone: 07-18-2021 19:07-0500 Systolic blood pressure 149 mm[Hg] Dr. Mikayla Gill Work Phone: [facility] Work Phone: 06-04-2021 14:21-0500 Body mass index (BMI) [Ratio] 30.4 kg/m2 Dr. Mikayla Gill Work Phone: [facility] Work Phone: 06-04-2021 14:21-0500 Body temperature 97.9 [degF] Dr. Mikayla Gill Work Phone: [facility] Work Phone: 06-04-2021 14:21-0500 Body weight 90.[address] Mikayla Gill Work Phone: [facility] Work Phone: 06-04-2021 14:21-0500 Diastolic blood pressure 89 mm[Hg] Dr. Mikayla Gill Work Phone: [facility] Work Phone: 06-04-2021 14:21-0500 Heart rate 61 /min Dr. Mikayla Gill Work Phone: [facility] Work Phone: 06-04-2021 14:21-0500 Respiratory rate 16 /min Dr. Mikayla Gill Work Phone: [facility] Work Phone: 06-04-2021 14:21-0500 Systolic blood pressure 162 mm[Hg] Dr. Mikayla Gill Work Phone: [facility] Work Phone: 06-04-2021 10:05-0500 Diastolic blood pressure 68 mm[Hg] Dr. Mikayla Gill Work Phone: [facility] Work Phone: 06-04-2021 10:05-0500 Heart rate 70 /min Dr. Mikayla Gill Work Phone: [facility] Work Phone: 06-04-2021 10:05-0500 Respiratory rate 16 /min Dr. Mikayla Gill Work Phone: [facility] Work Phone: 06-04-2021 10:05-0500 SaO2% (BldA) [Mass fraction] 99 % Dr. Mikayla Gill Work Phone: [facility] Work Phone: 06-04-2021 10:05-0500 Systolic blood pressure 120 mm[Hg] Dr. Mikayla Gill Work Phone: [facility] Work Phone: 06-04-2021 07:12-0500 Body mass index (BMI) [Ratio] 30.4 kg/m2 Dr. Mikayla Gill Work Phone: [facility] Work Phone: 06-04-2021 07:12-0500 Body temperature 97.8 [degF] Dr. Mikayla Gill Work Phone: [facility] Work Phone: 06-04-2021 07:12-0500 Body weight 90.[address] Mikayla Gill Work Phone: [facility] Work Phone: 06-02-2021 12:19-0500 Diastolic blood pressure 95 mm[Hg] Dr. Mikayla Gill Work Phone: [facility] Work Phone: 06-02-2021 12:19-0500 Heart rate 65 /min Dr. Mikayla Gill Work Phone: [facility] Work Phone: 06-02-2021 12:19-0500 Systolic blood pressure 149 mm[Hg] Dr. Mikayla Gill Work Phone: [facility] Work Phone: 06-02-2021 09:44-0500 Body mass index (BMI) [Ratio] 31.1 kg/m2 Dr. Mikayla Gill Work Phone: [facility] Work Phone: 06-02-2021 09:44-0500 Body temperature 98 [degF] Dr. Mikayla Gill Work Phone: [facility] Work Phone: 06-02-2021 09:44-0500 Body weight 92.[address] Mikayla Gill Work Phone: [facility] Work Phone: 06-02-2021 09:44-0500 Respiratory rate 14 /min Dr. Mikayla Gill Work Phone: [facility] Work Phone: 06-02-2021 09:44-0500 SaO2% (BldA) [Mass fraction] 100 % Dr. Mikayla Gill Work Phone: [facility] Work Phone: 05-31-2021 07:08-0500 Body mass index (BMI) [Ratio] 32.2 kg/m2 Dr. Mikayla Gill Work Phone: [facility] Work Phone: 05-31-2021 07:08-0500 Body temperature 96.7 [degF] Dr. Mikayla Gill Work Phone: [facility] Work Phone: 05-31-2021 07:08-0500 Body weight 96.[address] Mikayla Gill Work Phone: [facility] Work Phone: 05-31-2021 07:08-0500 Diastolic blood pressure 80 mm[Hg] Dr. Mikayla Gill Work Phone: [facility] Work Phone: 05-31-2021 07:08-0500 Heart rate 100 /min Dr. Mikayla Gill Work Phone: [facility] Work Phone: 05-31-2021 07:08-0500 Respiratory rate 18 /min Dr. Mikayla Gill Work Phone: [facility] Work Phone: 05-31-2021 07:08-0500 SaO2% (BldA) [Mass fraction] 98 % Dr. Mikayla Gill Work Phone: [facility] Work Phone: 05-31-2021 07:08-0500 Systolic blood pressure 138 mm[Hg] Dr. Mikayla Gill Work Phone: [facility] Work Phone: 05-15-2021 13:16-0500 Diastolic blood pressure 69 mm[Hg] Dr. Mikayla Gill Work Phone: [facility] Work Phone: 05-15-2021 13:16-0500 Heart rate 71 /min Dr. Mikayla Gill Work Phone: [facility] Work Phone: 05-15-2021 13:16-0500 Respiratory rate 16 /min Dr. Mikayla Gill Work Phone: [facility] Work Phone: 05-15-2021 13:16-0500 SaO2% (BldA) [Mass fraction] 99 % Dr. Mikayla Gill Work Phone: [facility] Work Phone: 05-15-2021 13:16-0500 Systolic blood pressure 127 mm[Hg] Dr. Mikayla Gill Work Phone: [facility] Work Phone: 05-15-2021 09:11-0500 Body temperature 97.9 [degF] Dr. Mikayla Gill Work Phone: [facility] Work Phone: 05-15-2021 09:09-0500 Body mass index (BMI) [Ratio] 30.1 kg/m2 Dr. Mikayla Gill Work Phone: [facility] Work Phone: 05-15-2021 09:09-0500 Body weight 89.[address] Mikayla Gill Work Phone: [facility] Work Phone: Encounters Encounter Date Encounter Type Care Provider Facility Start: 09-15-2024 End: 09-15-2024 Subsequent hospital visit by physician [facility] Work Phone: Radiology Comment on above: Right-sided chest wa ll pain [R07.89] Start: 09-15-2024 End: 09-15-2024 Office outpatient visit 25 minutes Brayden Potter MD Work Phone: [facility] Comment on above: Right-sided chest wa ll pain (Primary Dx); Costochondritis Start: 09-15-2024 End: 09-15-2024 ambulatory MIKAYLA GILL Facility:[facility] Start: 07-30-2023 End: 07-30-2023 Emergency department patient visit Benny Stacy Facility:[facility] Start: 07-30-2023 End: 07-30-2023 Emergency department patient visit [facility] Work Phone: Start: 04-01-2023 End: 04-01-2023 Emergency department patient visit Mikayla Gill Facility:[facility] Start: 04-01-2023 End: 04-01-2023 Emergency department patient visit [facility] Work Phone: Start: 03-31-2023 End: 03-31-2023 Emergency department patient visit Mikayla Gill Facility:[facility] Start: 03-30-2023 End: 03-31-2023 Emergency department patient visit [facility] Work Phone: Start: 09-18-2022 End: 09-18-2022 Emergency department patient visit Mikayla Gill Facility:[facility] Start: 09-18-2022 End: 09-18-2022 Emergency department patient visit [facility] Start: 2022 End: 2022 Emergency department patient visit [facility] Start: 06-24-2022 End: 06-24-2022 Emergency department patient visit [facility] Start: 06-22-2022 End: 06-22-2022 Emergency department patient visit PERNELL SWARTZ MD Facility:[id number] Start: 06-15-2022 End: 06-15-2022 Emergency department patient visit [facility] Start: 06-10-2022 End: 06-10-2022 Emergency department patient visit [facility] Start: 05-27-2022 End: 05-27-2022 Emergency department patient visit [facility] Start: 05-05-2022 End: 05-05-2022 Emergency department patient visit Dr. iMkayla Gill Work Phone: [facility] Start: 04-30-2022 End: 04-30-2022 Patient encounter procedure Candace Sheikh PA-C Work Phone: [facility] Comment on above: Viral URI with cough (Primary Dx) Start: 03-09-2022 End: 03-09-2022 Emergency [facility] Start: 02-27-2022 End: 02-27-2022 Emergency department patient visit Dr. Mikayla Gill Work Phone: [facility] Start: 01-09-2022 End: 01-09-2022 Emergency department patient [facility] Start: 01-05-2022 End: 01-05-[address] Mikayla Gill Work Phone: [facility] [place] Start: 01-03-2022 End: 01-03-2022 Emergency department patient visit Dr. Mikayla Gill Work Phone: [facility] Start: 01-02-2022 End: 01-02-2022 Emergency department patient visit Dr. Mikayla Gill Work Phone: [facility] Start: 12-31-2021 End: 12-31-2021 Emergency department patient [facility] Start: 12-01-2021 End: 12-01-[address] Mikayla Gill Work Phone: [facility] [place] Start: 11-27-2021 End: 11-27-2021 Emergency department patient visit Dr. Mikayla Gill Work Phone: [facility] Start: 11-27-2021 End: 11-27-2021 Emergency department patient visit Dr. Mikayla Gill Work Phone: [facility] Start: 11-23-2021 End: 11-23-2021 Emergency department patient [facility] Start: 11-23-2021 End: 11-23-2021 Emergency department patient visit Dr. Mikayla Gill Work Phone: [facility] Start: 11-16-2021 End: 11-16-2021 Patient encounter procedure Olivia Weller PA-C Work Phone: [facility] Comment on above: Allergic contact sharmila matitis, unspecified trigger (Primary Dx) Start: 10-18-2021 End: 10-18-[address] Mikayla Gill Work Phone: [facility] Start: 10-11-2021 End: 10-11-[address] Mikayla Gill Work Phone: [facility] Gastroenterology Start: 09-04-2021 End: 09-04-2021 Emergency department patient visit Dr. Mikayla Gill Work Phone: [facility] Start: 09-01-2021 End: 09-02-2021 Emergency department patient visit Dr. Mikayla Gill Work Phone: [facility] Start: 07-19-2021 End: 07-19-2021 Emergency department patient visit Dr. Mikayla Gill Work Phone: [facility] Start: 07-18-2021 End: 07-18-2021 Emergency department patient [facility] Start: 06-04-2021 End: 06-04-2021 Emergency department patient visit Dr. Mikayla Gill Work Phone: [facility] Start: 06-04-2021 End: 06-04-2021 Emergency department patient visit [facility] Start: 06-02-2021 End: 06-02-2021 Emergency department patient visit [facility]ay[facility] Gill [facility] Start: 05-31-2021 End: 05-31-[address] Mikayla Gill Work Phone: [facility] Internal Medicine Start: 05-15-2021 End: 05-15-2021 Emergency department patient visit Dr. Mikayla iGll [facility] Start: 08-25-2017 End: 08-25-2017 Emergency department patient visit NO FAMILY DOCTOR NO FAMILY DOCTOR Facility:[facility] Start: 08-25-2017 Ambulatory Facility:[id number] Start: 08-19-2017 End: 08-19-2017 Emergency department patient visit NO FAMILY DOCTOR NO FAMILY DOCTOR Facility:[facility] Start: 08-19-2017 Ambulatory Facility:[id number] Start: 02-09-2017 End: 02-09-2017 Emergency department patient visit NO FAMILY DOCTOR NO FAMILY DOCTOR Facility:[facility] Start: 01-12-2017 End: 01-12-2017 Emergency department patient visit MARKER Facility:[facility] Procedures Date Procedure Procedure Detail Performing Clinician Start: 09-15-2024 Radex ribs uni w/posteroant ch minimum 3 views Brayden Potter MD Work Phone: Start: 07-30-2023 Computed tomography of abdomen and pelvis with intravenous contrast Start: 09-18-2022 Plain X-ray abdomen Start: 06-15-2022 Computed tomography of abdomen and pelvis with intravenous contrast Start: 04-30-2022 COVID WITH FLUA+B, ROUTINE Candace R Athy PA-C Work Phone: Start: 02-27-2022 Computed tomography of abdomen and pelvis with intravenous contrast Dr. Mikayla Gill Work Phone: Start: 05-15-2021 Computed tomography of abdomen and pelvis with intravenous contrast Dr. Mikayla Gill Work Phone: Plan of Treatment Date Care Activity Detail Author Start: 01-12-2025 Influenza vaccination Influenza Vaccine (Season Ended) [facility] Start: 01-13-2024 Covid-19 Vaccine ( season) Covid-19 Vaccine ( season) [facility] Start: 07-30-2023 [facility] Start: 04-01-2023 [facility] Start: 04-01-2023 [facility] Start: 03-31-2023 [facility] Start: 06-24-2022 Patient discharge [facility] Start: 06-15-2022 Clostridioides difficile DNA [Presence] in Unspecified specimen by LATOYA with probe detection [facility] Start: 06-15-2022 End: 06-15-2022 Enteric precautions [facility] Start: 06-15-2022 Gastrointestinal pathogens panel - Stool by LATOYA with probe detection [facility] Start: 06-15-2022 Lactoferrin [Presence] in Stool by Immunoassay [facility] Start: 06-15-2022 Measurement of occult blood in stool specimen using immunoassay [facility] Start: 06-15-2022 Protein measurement [facility] Start: 01-12-2022 Influenza vaccination INFLUENZA (#1) [facility] Start: 11-23-2021 Assay of lipase ASSAY OF LIPASE [facility] Work Phone: Start: 11-23-2021 Blood count complete auto&auto difrntl wbc COMPLETE CBC W/AUTO DIFF WBC [facility] Work Phone: Start: 11-23-2021 Comprehensive metabolic panel COMPREHEN METABOLIC PANEL [facility] Work Phone: Start: 06-04-2021 Assay of lipase ASSAY OF LIPASE [facility] Work Phone: Start: 06-04-2021 Assay of thyroid stimulating hormone tsh ASSAY THYROID STIM HORMONE [facility] Work Phone: Start: 06-04-2021 Blood count complete auto&auto difrntl wbc COMPLETE CBC W/AUTO DIFF WBC [facility] Work Phone: Start: 06-04-2021 Comprehensive metabolic panel COMPREHEN METABOLIC PANEL [facility] Work Phone: Start: 06-04-2021 Emergency department visit moderate severity EMERGENCY DEPT VISIT [facility] Work Phone: Start: 05-14-2021 DEPRESSION ASSESSMENT DEPRESSION ASSESSMENT [facility] Start: 2012 Hepatitis B Vaccine (1 of 3 - 19+ 3-dose series) Hepatitis B Vaccine (1 of 3 - 19+ 3-dose series) [facility] Start: 2012 Urine microalbumin profile [facility] Start: 2011 Anxiety Screening Anxiety Screening [facility] Start: 2011 Depression Screening Depression Screening [facility] Start: 2011 HEPATITIS C SCREENING HEPATITIS C SCREENING [facility] Start: 2011 Hepatitis C screening Hepatitis C Screening [facility] Start: 2011 HIV SCREENING HIV SCREENING [facility] Start: 2011 HIV screening HIV Screening [facility] Start: 2005 Adult depression screening assessment DEPRESSION SCREENING [facility] Start: 1999 PNEUMOCOCCAL (1 - PCV) PNEUMOCOCCAL (1 - PCV) [facility] Start: 1993 COVID-19 VACCINE (#1) COVID-19 VACCINE (#1) [facility] Start: 1993 HEPATITIS B (1 of 3 - 3-dose series) HEPATITIS B (1 of 3 - 3-dose series) [facility] Bilirubin measuremen t, urine [facility] Hemoglobin [Presence ] in Urine [facility] Measurement of keton es in urine using dipstick [facility] Microscopic urinalysis [facility] Ova and parasites identified in Unspecified specimen by Light microscopy [facility] Patient Education [facility] Work Phone: Patient referral [facility] Work Phone: pH of Urine [facility] Porphobilinogen [Mas s/time] in 24 hour Urine [facility] Work Phone: Porphyrin fractions panel - 24 hour Urine [facility] Work Phone: Procedure [facility] Work Phone: Radionuclide gastric emptying study [facility] Work Phone: Specific gravity of Urine [facility] Urinalysis, blood, qualitative [facility] Urine dipstick for glucose [facility] Urine dipstick for leukocyte esterase [facility] Urine dipstick for nitrite [facility] Urine dipstick for protein [facility] Urine examination [facility] Urine microscopy: epithelial cells [facility] Urine Microscopy: wh ite cells [facility] Urobilinogen [Presen ce] in Urine [facility] Payers Date Payer Category Payer [employer] Blue [employer] BLUE CARD PPO OOS [id number] 2024 Unknown [id number] 2022 Self-pay [id number] 2022 Self-pay [id number] 2019 Medicaid [place] [employer] [place] [employer] [id number] 2019-Present [phone] [place] [id number] Medicaid [id number] 2019 Medicaid [place] [employer] [id number] 2019- [phone] [place] [id number] Medicaid [id number] 2008 Unknown 1993 Unknown [id number] Unknown [id number] Unknown [id number] Unknown [id number] Unknown [id number] Unknown [id number] Social History Date Type Detail Facility Start: 09-01-2021 End: 07-30-2023 Tobacco smoking status [facility] Unknown if ever smoked [facility] Start: 09-19-2020 Non-smoker [facility] Start: 1993 Sex Assigned At Male [facility] Start: 11-16-2021 Tobacco smoking stat [facility] Occasional tobacco smoker [facility] Start: 11-16-2021 End: 04-30-2022 Tobacco use and exposure Smokeless tobacco non-user [facility] Start: 1993 Sex Assigned At Not on file [facility] Start: 11-06-2021 End: 11-16-2021 Exposure to SARS-CoV-2 (event) Not sure [facility] Work Phone: Start: 04-30-2022 [facility] Work Phone: History of tobacco use Current smoker [facility] Work Phone: Start: 04-30-2022 End: 09-15-2024 Alcohol intake Current drinker of alcohol (finding) [facility] Start: 05-28-2022 End: 09-15-2024 History of Social function [facility] Start: 05-28-2022 End: 09-15-2024 Tobacco use panel [facility] National Score (1-100), lower number is lower risk 48 [facility] Clinical Notes 11-16-2021 to 09-15-2024 Malia Baldwin Tech - 09/15/2024 8:10 AM EDTMBrayden Lyons MD - 09/15/2024 8:05 AM EDT Note Date & Type Note Facility 09-15-2024 History of Present illness Narrative Radiology Service Progress Note PATIENT NAME: Manav Rebolledo DATE OF SERVICE: September 15, 2024 TIME: 8:10 AM PATIENT IDENTITY VERIFICATION COMPLETED USING TWO (2) IDENTIFIERS: Name and Date of confirmed by patient verbally. FALL SCREENING: Has the patient had 2 falls in the last year or 1 fall with injury or currently using an Ambulatory Assistive Device (Walker, Cane, Wheelchair, Crutches, etc.)? No PATIENT GENDER DATA: Assigned male at PATIENT RELEVANT IMPLANT DATA REVIEWED: Not Applicable PATIENT PRESENTS WITH AN IMPLANTABLE OR ATTACHED SURFACE PLATE INSPECTOR: No RADIOLOGY DEPARTMENT: General X-ray: Exam(s) Completed: Rib X-Ray: Right PERIPHERAL IV DATA: Not applicable SIGNED BY: Tahmina Monroy September 15, 2024 8:10 AM documented in this encounter [facility] 09-15-2024 Note HNO ID: [id number] Author: MALIA BALDWIN Tech Service: ? Author Type: Technologist Type: Progress Notes Filed: 09/15/2024 08:22 Note Text: Radiology Service Progress Note PATIENT NAME: Manav Rebolledo DATE OF SERVICE: September 15, 2024 TIME: 8:10 AM PATIENT IDENTITY VERIFICATION COMPLETED USING TWO (2) IDENTIFIERS: Name and Date of confirmed by patient verbally. FALL SCREENING: Has the patient had 2 falls in the last year or 1 fall with injury or currently using an Ambulatory Assistive Device (Walker, Cane, Wheelchair, Crutches, etc.)? No PATIENT GENDER DATA: Assigned male at PATIENT RELEVANT IMPLANT DATA REVIEWED: Not Applicable PATIENT PRESENTS WITH AN IMPLANTABLE OR ATTACHED SURFACE PLATE INSPECTOR: No RADIOLOGY DEPARTMENT: General X-ray: Exam(s) Completed: Rib X-Ray: Right PERIPHERAL IV DATA: Not applicable SIGNED BY: Tahmina Monroy September 15, 2024 8:[address] [facility] 09-15-2024 Note HNO ID: [id number] Author: BRAYDEN POTTER MD Service: ? Author Type: Physician Type: Progress Notes Filed: 09/15/2024 08:45 Note Text: [facility] Subjective Manav Rebolledo is a 29 year old male. Patient presents with: right shoulder pain: X 2 weeks-worse yesterday after lifting Right chest pain: Duration: mild for 2 weeks, worse after bench pressing yesterday Location: below the right pectoral muscle Character: sharp Radiation: around to the back, shooting down to the right arm at times Aggravating: deep breaths, coughing, sneezing, reaching, pulling, lifting, and bending forward Relieving: shallow breaths Pain relievers: none (PHx of nausea and vomiting exacerbated by ibuprofen which improved with better diet and weight loss). Associated: short of breath avoiding pain, tender Pertinent negatives: Denies numbness, fever, cough, hemoptysis, palpitations Review of Systems Objective BP 130/80 Pulse 73 Temp 36.7 ?C (98.1 ?F) (Tympanic) Resp 16 Wt 101.9 kg (224 lb 10.4 oz) SpO2 98% Physical Exam Constitutional: General: He is not in acute distress. Appearance: He is not ill-appearing or diaphoretic. HENT: Mouth/Throat: Mouth: Mucous membranes are moist. Pharynx: No oropharyngeal exudate or posterior oropharyngeal erythema. Eyes: Extraocular Movements: Extraocular movements intact. Conjunctiva/sclera: Conjunctivae normal. Pupils: Pupils are equal, round, and reactive to light. Neck: Comments: Full ROM of neck neck with discomfort on right lateral extension Cardiovascular: Rate and Rhythm: Normal rate and regular rhythm. Heart sounds: No murmur heard. Pulmonary: Effort: No respiratory distress. Breath sounds: No wheezing, rhonchi or rales. Chest: Comments: Chest wall tenderness right sternal border and approximately fourth costochondral cartilage. No lateral or posterior rib tenderness. No superficial muscle tenderness. Musculoskeletal: Cervical back: No rigidity or tenderness. Comments: SHOULDER: right compared to left. No deformity or swelling. Palpation of clavicle non-tender, AC joint non-tender, glenohumeral joint non-tender. ROM: normal. Impingement test AND Cross arm test: induce chest pain on the right Lymphadenopathy: Cervical: No cervical adenopathy. Neurological: Mental Status: He is alert. {ASSESSMENT/PLAN: 1. Right-sided chest wall pain - ICD9: 786.52, ICD10: R07.89 (primary diagnosis) 2. Costochondritis - ICD9: 733.6, ICD10: M94.0 - XR RIBS/CHEST 3V AP RIB/OBLS/CXR RIGHT Normal cardiomediastinal silhouette. No focal consolidation. No discernible pleural effusion or pneumothorax. No acute displaced right-sided rib fracture identified. Treat costochondritis with analgesia and rest. He will begin with acetaminophen which is best tolerated for him. He will switch to ibuprofen and omeprazole if not improving. Provided work note for today and tomorrow. 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 Follow up with worsening cough, worsening shortness of breath, increasing chest pain, or late onset fever. Brayden Potter MD Differential Diagnoses - Costochondritis is more likely for the following reason(s): Reproducible on palpation; likely induced by bench press activity, suggested by HANDP - Pectoral muscle tear is less likely for the following reason(s): No pectoral muscle tenderness on palpation, HANDP not suggestive - Cardiopulmonary origin of pain is less likely for the following reason(s): Reproducible on exam Procedures [facility] 09-15-2024 History of Present illness Narrative Images from the original note were not included. [facility] Subjective Manav Rebolledo is a 29 year old male. Patient presents with: right shoulder pain: X 2 weeks-worse yesterday after lifting Right chest pain: Duration: mild for 2 weeks, worse after bench pressing yesterday Location: below the right pectoral muscle Character: sharp Radiation: around to the back, shooting down to the right arm at times Aggravating: deep breaths, coughing, sneezing, reaching, pulling, lifting, and bending forward Relieving: shallow breaths Pain relievers: none (PHx of nausea and vomiting exacerbated by ibuprofen which improved with better diet and weight loss). Associated: short of breath avoiding pain, tender Pertinent negatives: Denies numbness, fever, cough, hemoptysis, palpitations Review of Systems Objective BP 130/80 Pulse 73 Temp 36.7 C (98.1 F) (Tympanic) Resp 16 Wt 101.9 kg (224 lb 10.4 oz) SpO2 98% Physical Exam Constitutional: General: He is not in acute distress. Appearance: He is not ill-appearing or diaphoretic. HENT: Mouth/Throat: Mouth: Mucous membranes are moist. Pharynx: No oropharyngeal exudate or posterior oropharyngeal erythema. Eyes: Extraocular Movements: Extraocular movements intact. Conjunctiva/sclera: Conjunctivae normal. Pupils: Pupils are equal, round, and reactive to light. Neck: Comments: Full ROM of neck neck with discomfort on right lateral extension Cardiovascular: Rate and Rhythm: Normal rate and regular rhythm. Heart sounds: No murmur heard. Pulmonary: Effort: No respiratory distress. Breath sounds: No wheezing, rhonchi or rales. Chest: Comments: Chest wall tenderness right sternal border and approximately fourth costochondral cartilage. No lateral or posterior rib tenderness. No superficial muscle tenderness. Musculoskeletal: Cervical back: No rigidity or tenderness. Comments: SHOULDER: right compared to left. No deformity or swelling. Palpation of clavicle non-tender, AC joint non-tender, glenohumeral joint non-tender. ROM: normal. Impingement test & Cross arm test: induce chest pain on the right Lymphadenopathy: Cervical: No cervical adenopathy. Neurological: Mental Status: He is alert. {ASSESSMENT/PLAN: 1. Right-sided chest wall pain - ICD9: 786.52, ICD10: R07.89 (primary diagnosis) 2. Costochondritis - ICD9: 733.6, ICD10: M94.0 - XR RIBS/CHEST 3V AP RIB/OBLS/CXR RIGHT Normal cardiomediastinal silhouette. No focal consolidation. No discernible pleural effusion or pneumothorax. No acute displaced right-sided rib fracture identified. Treat costochondritis with analgesia and rest. He will begin with acetaminophen which is best tolerated for him. He will switch to ibuprofen and omeprazole if not improving. Provided work note for today and tomorrow. 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 Follow up with worsening cough, worsening shortness of breath, increasing chest pain, or late onset fever. Brayden Potter MD Differential Diagnoses - Costochondritis is more likely for the following reason(s): Reproducible on palpation; likely induced by bench press activity, suggested by H&P - Pectoral muscle tear is less likely for the following reason(s): No pectoral muscle tenderness on palpation, H&P not suggestive - Cardiopulmonary origin of pain is less likely for the following reason(s): Reproducible on exam Procedures documented in this encounter [facility] 04-01-2023 Discharge summary Note Date/Time April 01, 2023 7:29am [facility] Medical Records Department [address] [place] [address] Emergency Department Summary 04/01/23 MR#: [id number] Acct: [id number] Name: MANAV REBOLLEDO Rep #:[id number] : 1995 27 From: Sihlo Olmedo DO PCP: Dr. Mikayla Gill MD Status:REG ER Location: ED HPI HPI - GI History of Present Illness Chief Complaint: Abd Pain Narrative Narrative: 27-year-old male with history of gastritis, GERD, cyclic vomiting syndrome, avoid use presenting with nausea/vomiting/epigastric pain. Patient states that he was here the day before yesterday overnight after eating some fried chicken which is known to cause him symptoms of gastritis. He was given Pepcid and Zofran and started to feel better. Last evening his took his significant other to sheets for robledo cheddar cheese biscuits and this did him to eat 2 of these himself and now he has nausea and vomiting again. He states that these would beknown to cause the symptoms. He did Zofran which is dissolvable but still vomited. He is still having epigastric pain. Denies fevers or chills. [facility] Medical History Abdominal pain Depression Former smoker Nausea and vomiting Subclinical hypothyroidism Vitamin D deficiency Home Medications ondansetron 4 mg disintegrating tablet 4 mg PO TID PRN nausea and vomiting #21 tabs 03/31/23 [Rx Last Taken Unknown] Allergy/AdvReac Type Severity Reaction Status Date / Time adhesive tape Allergy Rash Verified 03/30/23 23:34 ibuprofen [From Motrin] AdvReac Upset Verified 03/30/23 23:34 Stomach Family History Mother Asthma Surgical History History of appendectomy Social History household members: significant other Smoking Status: Current every day smoker tobacco type: cigarettes alcohol intake: never substance use type: marijuana ROS ROS ED Constitutional Constitutional ED: Denies chills, fever(s) or sweats Eyes Eyes: Denies blurry vision or change in vision ENT ENT ED: Denies ear pain or sore throat Cardiovascular Cardiovascular: Denies chest pain, palpitations or racing heartbeat Respiratory/Chest Respiratory/Chest: Denies cough, dyspnea or sputum Gastrointestinal Gastrointestinal: Reports abdominal pain, nausea and vomiting; Denies constipation or diarrhea Genitourinary Genitourinary ED: Denies dysuria, hematuria or urinary frequency Musculoskeletal Musculoskeletal: Denies arthralgias, myalgias or neck pain Integumentary Denies abscess, Abrasions or rash Neurologic Neurologic: Denies headache(s), paresthesias or weakness Psychiatric Psychiatric: Denies anxiety, depression, suicidal ideation or suicidal thoughts Endocrine Endocrinology: Denies polydipsia or polyuria EXAM Physical Exam Const Vital Signs: 04/01/23 07:08 Temperature 97.4 F L Temperature Source Temporal Pulse Rate 73 Respiratory Rate 20 H Blood Pressure 169/139 H Blood Pressure Mean 149 Pulse Ox 100 Oxygen Delivery Method Room Air Positive well nourished General Appearance ED: NAD HEENT Reports moist mucous membranes normocephalic and atraumatic Eyes PERRL and EOMs intact bilaterally Resp normal respiratory effort Cardio regular rate and regular rhythm GI GI Narrative: Epigastric tenderness Neuro CN's II-XII intact bilaterally Sensorium / Orientation: alert, oriented to person, oriented to place and oriented to time Psych mental status grossly normal MDM MDM MDM Narrative Medical decision making narrative: Patient with symptoms of gastritis/GERD. Patient had lab work chest 2 days ago. I do not believe he needs repeat lab work. He and his significant other are inagreement. He does want symptomatic control he is given IM Phenergan and will be followed by GI cocktail. Rate 22. Nursing states to me that the patient declines a GI cocktail. He is sleeping after getting Phenergan. He has not hadany episodes of emesis. She continued to complain of nausea so an IV was established and he was given Reglan and Benadryl and he has not had any further episodes of vomiting however on reevaluation at 9:38 AM the patient states he still nauseous and request some IV Pepcid. This was provided. 10:22 AM the patient came out of the room demanding to be discharged home immediately. He stated to nursing staff that he wants to go home and take a shower. He has antiemetics at home. He was again counseled to watch his diet as this seems to be the trigger for his emesis/abdominal pain. Discharged in stable condition. Impression: 1 nausea/vomiting 2. Abdominal pain Lab Data Attestation: I reviewed the patient's lab results. Discharge Plan Triage Chief Complaint: Abd Pain ED Provider: Shilo Olmedo Dx/Rx/DC Orders Instructions: ED Abdominal Pain Unkn Cause Male... Prescriptions: No Action ondansetron 4 mg tablet,disintegrating 4 mg PO TID PRN (Reason: nausea and vomiting) Qty: 21 0RF Primary Care Provider: Mikayla Gill Referrals: Mikayla Gill MD [Primary Care Provider] - Disposition Disposition: Home, Self Care What to do if you have Problems For any increased pain, shortness of breath, bleeding, nausea or vomiting, chestpain, or any unexpected problems, contact your Primary Care Provider. Call [facility] ([phone]) or report to the closest Emergency Room. Call 911 if necessary. 04/01/23 1023 <Electronically signed by Shilo Olmedo DO> Cosigner Signature (if applicable): CC: Dr. Mikayla Gill MD ~ Signed [facility] Work Phone: 1(155) 239-387605-08-[address] Stacy [facility] September 18, 2022 4:25pm Note Date/Time September 18, 2022 2:57pm [facility] Medical Records Department [address] [place] [address] Emergency Department Summary 09/18/22 MR#: [id number] Acct: [id number] Name: MANAV REBOLLEDO Rep #:[id number] : 1995 27 From: Benny Stacy MD PCP: Dr. Mikayla Gill MD Status:REG ER Location: ED HPI History of Present Illness Chief Complaint: Nausea/Vomiting Detail of Chief Complaint: Nausea vomiting with hematemesis and coffee-ground emesis Informant: spouse/S.O. Onset/Context/Timing Onset: Today Context: Sudden Onset Timing: Intermittent Quality: Initial to bouts of emesis without blood or coffee-ground appearing materia Location: GI Current Severity: Unable to determine because patient is moaning. Maximum Severity: Unable to determine Worsened by: Unable to determine Relieved by: Unable to determine Associated Symptoms Associated Symptoms: Unable to determine Narrative Narrative: Patient is a 27-year-old male who does have a care plan. He sought ER care 11 times over a 7-month. He has been seen by Dr. Bonilla in the past and was noted to have esophagitis due to reflux. He did see Dr. Marshall September 2021 with uncertainty of the cause of his abdominal pain. Patient's significant other informing that Dr. Marshall is aware of his marijuana use and that this is not thecause of his problems because he has been using marijuana for years. Of note there is no mention of marijuana use in Dr. Marshall's notes. Patient is lying in the bed unresponsive. When his arm was raised above his face he slowly brought it down to the side. Patient coughed once or twice. He then began to moan when I palpated his abdomen. Otherwise no history was obtained from the patient. The history was obtained from his significant other. She did take pictures of the emesis. There is concerned this represents a GI bleed. Since this occurred on the third episode of vomiting suspect that he hasa Nila-Stewart tear. Also suspect patient has cyclic vomiting. [facility] Medical History Abdominal pain Depression Former smoker Nausea and vomiting Subclinical hypothyroidism Vitamin D deficiency Home Medications famotidine 20 mg tablet 20 mg PO BID #28 TABLETS 06/10/22 [Rx Last Taken Unknown] ondansetron HCl 4 mg tablet 4 mg PO Q6H PRN nausea and vomiting #20 tabs 06/10/22 [Rx Last Taken Unknown] Allergy/AdvReac Type Severity Reaction Status Date / Time adhesive tape Allergy Rash Verified 06/24/22 06:24 ibuprofen [From Motrin] AdvReac Upset Verified 06/24/22 06:24 Stomach Family History Mother Asthma Surgical History History of appendectomy Social History household members: significant other Smoking Status: Current every day smoker tobacco type: cigarettes alcohol intake: never substance use type: marijuana ROS ROS ED Review of Systems ROS Unobtainable: due to mental condition and due to mental status EXAM Physical Exam Const Vital Signs: 09/18/22 13:52 09/18/22 13:58 Temperature 97.8 F Temperature Source Temporal Pulse Rate 80 Respiratory Rate 20 H Blood Pressure 155/83 H Blood Pressure Mean 107 Pulse Ox 100 Oxygen Delivery Method Room Air Positive well nourished and well developed General Appearance ED: well developed and NAD; Negative for cyanotic, diaphoretic or pallor HEENT Reports moist mucous membranes HEENT Narrative: Head is atraumatic normocephalic. Ears normal. Nares patent. Posterior pharynx is unremarkable. Eyes PERRL and EOMs intact bilaterally General Eye ED: Negative for pale conjunctiva or scleral icterus Neck no lymphadenopathy, supple and no JVD Chest Wall inspection of chest normal and palpation of chest normal Resp normal respiratory effort and clear to auscultation bilaterally Cardio regular rate, regular rhythm, S1 normal heart sound, S2 normal heart sound and no murmurs GI normal to inspection, nondistended, normoactive bowel sounds, non-distended and no masses; Negative for non-tender or hepatosplenomegaly GI Narrative: Patient has pain out of proportion to light tactile stimulus. Patient would move my hand away. There was no voluntary or involuntary guarding with deep palpation. Palpation: soft Back/Spine no CVA tenderness Extremity normal to inspection General Extremety ED: Negative for edema, tenderness or other findings General Extremity: Negative for edema or other findings Neuro oriented x3, CN's II-XII intact bilaterally and no sensory deficits noted Psych Psych Narrative: Difficult to assess. Skin no rashes or lesions noted, no wounds and skin turgor normal General Skin Exam: Negative for jaundice or pallor MDM MDM MDM Narrative Medical decision making narrative: SPECT patient's vomiting is probably due to marijuana use. Suspect patient's upper GI bleed is due to Nila-Stewart tear. We will have NG placed by nursing staff to determine if he is still actively bleeding. Cyclic vomiting order set was used. CBC was obtained to assess H&H. Prior records were reviewed i.e. EGD by Dr. Louie Lerma in [address] Marshall September 2021. With patient avoiding his hand from falling onto his face he is conscious of what is going on and in my opinion is deliberately not answering questions or interacting with me or the nurse. History & Record Review Discussion w/independent historian: Significant other Additional record(s) reviewed:: Prior outpatient record and Prior ED visit Lab Data Attestation: I reviewed the patient's lab results. Lab results narrative: White count is slightly elevated with slight shift. There is no bandemia comprehensive metabolic panel is unremarkable other than a glucose of 117 with normal CO2 and anion gap. Labs: Laboratory Results - last 24 hr 09/18/22 09/18/22 09/18/22 13:55 14:42 14:42 WBC 12.2 H RBC 4.73 Hgb 15.0 Hct 43.0 MCV 90.9 MCH 31.7 MCHC 34.9 RDW Std Deviation 41.7 RDW Coeff of Tanya 12.3 Plt Count 321 MPV 9.7 Immature Gran % (Auto) 0.200 Neut % (Auto) 84.6 H Lymph % (Auto) 9.6 L [place] % (Auto) 5.1 Eos % (Auto) 0.1 Baso % (Auto) 0.4 Absolute Neuts (auto) 10.3 H Absolute Lymphs (auto) 1.18 Nucleated RBC % 0 Sodium 140 Potassium 3.7 Chloride 107 Carbon Dioxide 24.0 Anion Gap 9 BUN 8 Creatinine 1.10 Estim Creat Clear Calc 99.09 Est GFR (MDRD) Af Amer 102 Est GFR (MDRD) Non-Af 84 BUN/Creatinine Ratio 7.3 L Glucose 117 H Calcium 10.1 Total Bilirubin 0.60 AST 22 ALT 33 Alkaline Phosphatase 72 Total Protein 7.7 Albumin 4.4 Globulin 3.3 Albumin/Globulin Ratio 1.3 Lipase 21 POC Glucose 129 H Radiography Chest X-Ray - ED: 1 View and Read by ED Physician (KUB was obtained and reveals the NG to be in proper position. There is no evidence of pneumoperitoneum. There is no infiltrate noted lower lung davis.) Diagnostic Testing: Clinical Impression(s) from Imaging Studies KUB X-Ray 09/18/22 15:25 IMPRESSION: The distal tip of the nasogastric tube is in the body of the stomach. Electronically Signed: Darrian Jacobsen MD at 15:39 EDT , Treatment and Re-Evaluation :: Patient was reassessed at 1620. He is sitting up talking states he feels markedly better. There was no gross blood noted after insertion of NG. Discharge Plan Triage Chief Complaint: Nausea/Vomiting ED Provider: Benny Stacy Dx/Rx/DC Orders Clinical Impression: Nila-Stewart tear, Hyperlipidemia, Abdominal pain, Nausea & vomiting, Conversion reaction, Cannabis use disorder Instructions: Nila-Stewart Tear Prescriptions: No Action ondansetron HCl 4 mg tablet 4 mg PO Q6H PRN (Reason: nausea and vomiting) Qty: 20 0RF famotidine 20 mg tablet 20 mg PO BID Qty: 28 0RF Primary Care Provider: Mikayla Gill Referrals: Mikayla Gill MD [Primary Care Provider] - Ra JoannahsDO anselmo [Med Staff - Active Staff] - 1-2 Weeks Disposition Disposition: Home, Self Care What to do if you have Problems For any increased pain, shortness of breath, bleeding, nausea or vomiting, chestpain, or any unexpected problems, contact your Primary Care Provider. Call [facility] ([phone]) or report to the closest Emergency Room. Call 911 if necessary. 09/18/22 1625 <Electronically signed by Benny Stacy MD> Cosigner Signature (if applicable): CC: Dr. Mikayla Gill MD ~ Signed [facility] Work Phone: 1(978) 276-976502-18-2023 Discharge summary Author Roney Paul [facility] 2022 5:51am Note Date/Time 2022 4:39am [facility] Medical Records Department [address] [place] [address] Emergency Department Summary 07/01/22 MR#: [id number] Acct: [id number] Name: MANAV REBOLLEDO Rep #:[id number] : 1995 27 From: Roney Paul DO PCP: Dr. Mikayla Gill MD Status:REG ER Location: ED HPI History of Present Illness Chief Complaint: Abd Pain Narrative Narrative: Patient is a 27-year-old male with past medical history of chronic abdominal pain. He was seen on June 15 and at that time was found to have pancolitis. He was placed on steroids and antibiotics. Patient states he took those as directed and finished them roughly 3 to 5 days ago. He states this evening he was sleeping and he awoke with generalized abdominal discomfort and bouts of nausea. He states that he tried his home medications without symptom improvement and secondary to this comes in for evaluation. He denies any recenttrauma or excessive activity he denies any diarrhea fevers chills or dysuria. He also denies any recent cannabis use that could have stimulated his symptoms PFSH [facility] Medical History Abdominal pain Depression Former smoker Nausea and vomiting Subclinical hypothyroidism Vitamin D deficiency Home Medications famotidine 20 mg tablet 20 mg PO BID #28 TABLETS 06/10/22 [Rx Last Taken Unknown] ondansetron HCl 4 mg tablet 4 mg PO Q6H PRN nausea and vomiting #20 tabs 06/10/22 [Rx Last Taken Unknown] prednisone 20 mg tablet 40 mg PO DAILY #20 tabs 06/15/22 [Rx Last Taken Unknown] Allergy/AdvReac Type Severity Reaction Status Date / Time adhesive tape Allergy Rash Verified 06/24/22 06:24 ibuprofen [From Motrin] AdvReac Upset Verified 06/24/22 06:24 Stomach Family History Mother Asthma Surgical History History of appendectomy Social History household members: significant other Smoking Status: Current every day smoker tobacco type: cigarettes alcohol intake: never substance use type: marijuana ROS ROS ED Constitutional Constitutional ED: Denies chills or fever(s) ENT ENT ED: Denies sore throat Cardiovascular Cardiovascular: Denies chest pain Respiratory/Chest Respiratory/Chest: Denies cough or dyspnea Gastrointestinal Gastrointestinal: Reports abdominal pain, nausea and vomiting; Denies diarrhea Genitourinary Genitourinary ED: Denies dysuria or hematuria Musculoskeletal Musculoskeletal: Denies myalgias Integumentary Denies rash Neurologic Neurologic: Denies headache(s) Hematologic/Lymphatic Hematologic/Lymphatic: Denies easy bleeding or easy bruising EXAM Physical Exam Const Vital Signs: 07/01/22 03:28 Temperature 97.6 F L Temperature Source Oral Pulse Rate 69 Respiratory Rate 18 Blood Pressure 149/95 H Blood Pressure Mean 113 Pulse Ox 100 Oxygen Delivery Method Room Air Positive well nourished and well developed General Appearance ED: well developed HEENT Reports moist mucous membranes HEENT Narrative: No trismus change in voice or difficulty with secretions no findings of secondary infection in the posterior pharynx Eyes PERRL and EOMs intact bilaterally General Eye ED: Negative for scleral icterus Neck supple Neck Narrative: No crepitance palpated or pain with external manipulation of the thyroid cartilage Resp normal respiratory effort and clear to auscultation bilaterally Cardio regular rate and regular rhythm Rate: other Other Details: Radial pulses are plus 2 out of 4 bilaterally are equal and symmetric GI non-distended GI Narrative: Abdomen is soft and nondistended with normoactive bowel sounds. Patient has mild diffuse pain with palpation without voluntary guarding or rigidity. No pulsatile mass or fluid wave Auscultation: normoactive bowel sounds Palpation: soft Extremity normal to inspection Neuro oriented x3 and CN's II-XII intact bilaterally Sensorium / Orientation: alert Psych Psych Narrative: Patient has a nervous/anxious affect Skin no rashes or lesions noted General Skin Exam: Negative for jaundice MDM MDM MDM Narrative Medical decision making narrative: Patient arrived to the ER afebrile. He has a history of chronic abdominal pain and on exam he had mild diffuse tenderness but he was not rigid he is not guarding there is no distention and therefore do not feel there is a need for CAT scan emergently. With his symptoms of abdominal pain there is concern he isdeveloped a viral stomach infection is having worsening gastritis or acute pancreatitis or that with his bouts of nausea and vomiting he has electrolyte disturbance or acute kidney injury from severe dehydration. Secondary to this basic labs were obtained. Patient's white count is normal moreover his lactic acid is normal and there is no elevation to the CRP going against an acute inflammatory process. He has no signs of acute kidney injury or severe electrolyte disturbance as well. Therefore at this time with his recent CAT scan in early June and now normal laboratory values without leukocytosis lactic acidosis or elevation to his CRP do not feel there is need for a repeat scan. Patient was hydrated initially given Compazine and then still had bouts of nausea and vomiting so Haldol was added. After receiving Haldol patient had improvement of symptoms and on reevaluation his abdomen remains soft and nonsurgical. Therefore I feel this is a flareup of his chronic abdominal issuesand his I have low concern for underlying obstruction or infection he is otherwise safe for discharge Lab Data Attestation: I reviewed the patient's lab results. Labs: Laboratory Results - last 24 hr 07/01/22 07/01/22 07/01/22 04:04 04:10 04:10 WBC 9.5 RBC 4.74 Hgb 14.6 Hct 44.6 MCV 94.1 H MCH 30.8 MCHC 32.7 RDW Std Deviation 44.9 H RDW Coeff of Tanya 13.0 Plt Count 287 MPV 9.8 Immature Gran % (Auto) 0.300 Neut % (Auto) 65.1 Lymph % (Auto) 23.2 Mohave % (Auto) 8.7 Eos % (Auto) 2.2 Baso % (Auto) 0.5 Absolute Neuts (auto) 6.2 Absolute Lymphs (auto) 2.21 Nucleated RBC % 0 Sodium 139 Potassium 3.8 Chloride 108 H Carbon Dioxide 25.0 Anion Gap 6 BUN 10 Creatinine 1.18 Estim Creat Clear Calc 92.37 Est GFR (MDRD) Af Amer 94 Est GFR (MDRD) Non-Af 78 BUN/Creatinine Ratio 8.5 L Glucose 107 H Lactic Acid 1.8 Calcium 9.3 Total Bilirubin 0.20 Direct Bilirubin 0.09 AST 27 ALT 28 Alkaline Phosphatase 55 C-React Prot Ext Range < 2.90 Total Protein 7.1 Albumin 3.7 Globulin 3.4 Lipase 139 Discharge Plan Triage Chief Complaint: Abd Pain ED Provider: Roney Paul Dx/Rx/DC Orders Clinical Impression: Nausea & vomiting, Abdominal pain Instructions: Abdominal Pain, ED Vomiting (Adult) Prescriptions: No Action ondansetron HCl 4 mg tablet 4 mg PO Q6H PRN (Reason: nausea and vomiting) Qty: 20 0RF famotidine 20 mg tablet 20 mg PO BID Qty: 28 0RF prednisone 20 mg tablet 40 mg PO DAILY Qty: 20 0RF Primary Care Provider: Mikayla Gill Referrals: Mikayla Gill MD [Primary Care Provider] - Activity Restrictions/Additional Instructions: Please continue the medication prescribed by your coil maker as directedas your work-up today reveals no clinically significant changes. Keep yourself well-hydrated and if you have any further concerns please return to the ER for repeat evaluation Disposition Disposition: Home, Self Care What to do if you have Problems For any increased pain, shortness of breath, bleeding, nausea or vomiting, chestpain, or any unexpected problems, contact your Primary Care Provider. Call [facility] ([phone]) or report to the closest Emergency Room. Call 911 if necessary. 07/01/22 0551 <Electronically signed by Roney Paul DO> Cosigner Signature (if applicable): CC: Dr. Mikayla Gill MD ~ Signed [facility] Work Phone: 1(893) 459-127202-02-[address] White [facility] June 15, 2022 3:40pm Note Date/Time June 15, 2022 1 :04pm [facility] Medical Records Department [address] [place] [id number] Emergency Department Summary 06/15/22 MR#: [id number] Acct: [id number] Name: MANAV REBOLLEDO Rep #:[id number] : 1995 From: Jono White MD PCP: Dr. Mikayla Gill MD Status:REG ER Location: ED HPI HPI - GI History of Present Illness Chief Complaint: Abd Pain Narrative Narrative: 26-year-old male past medical history of gastritis, cyclic vomiting syndrome, has had multiple visits to the ED in the past presents with nausea, vomiting, diarrhea, and abdominal pain that he has had for the last few hours. He states he has vomited 7 times without blood in his emesis, and he had 1 episode of diarrhea. He complains of diffuse abdominal pain. No exacerbating or alleviating factors. He admits to smoking marijuana on occasion. Past surgicalhistory to the abdomen does include remote appendectomy. He states he has pain all over his abdomen. [facility] Medical History Abdominal pain Depression Former smoker Nausea and vomiting Subclinical hypothyroidism Vitamin D deficiency Home Medications famotidine 20 mg tablet 20 mg PO BID #28 TABLETS 06/10/22 [Rx Last Taken Unknown] ondansetron HCl 4 mg tablet 4 mg PO Q6H PRN nausea and vomiting #20 tabs 06/10/22 [Rx Last Taken Unknown] amoxicillin 875 mg-potassium clavulanate 125 mg tablet 1 tab PO BID #14 tabs 06/15/22 [Rx Last Taken Unknown] prednisone 20 mg tablet 40 mg PO DAILY #20 tabs 06/15/22 [Rx Last Taken Unknown] Allergy/AdvReac Type Severity Reaction Status Date / Time adhesive tape Allergy Rash Verified 06/15/22 12:32 ibuprofen [From Motrin] AdvReac Upset Verified 06/15/22 12:32 Stomach Family History Mother Asthma Surgical History History of appendectomy Social History household members: significant other Smoking Status: Current every day smoker tobacco type: cigarettes alcohol intake: never substance use type: marijuana ROS ROS ED ROS Narrative Constitutional: No fever, no chills. HEENT: No sore throat. No neck pain. No loss of vision. No rhinorrhea. Cardiovascular: No chest pain. No palpitations. No pedal edema. Respiratory: No cough, no shortness of breath. Abdominal: Diffuse abdominal pain. Positive nausea. 7 episodes of nonbloody vomiting. 1 episode of nonbloody diarrhea Genitourinary: No dysuria. No hematuria. Musculoskeletal: No myalgias. No arthralgias. Neurologic: No headaches. No dizziness. No lightheadedness. Skin: No rash. No change in color. Psychiatric: No depression. No anxiety. EXAM Physical Exam Narrative Exam Narrative: Afebrile. Vital signs noted. HEENT: Normocephalic. Atraumatic. PERRL, EOMI. Neck soft and supple. No pointtenderness or step off. Cardiovascular: Regular rate and rhythm. No murmurs, rubs, or gallops appreciated. Respiratory: No tachypnea. Lungs clear to auscultation bilaterally. Gastrointestinal: Abdomen soft, minimal diffuse tenderness with normoactive bowel sounds. No rebound or guarding. Neurological: Awake. Alert. Nonfocal, nonlateralizing. Skin: No rash. Normal color. No pallor. Musculoskeletal: No pedal edema. Full range of motion extremities. Const Vital Signs: 06/15/22 12:32 06/15/22 15:28 Temperature 97 F L Temperature Source Temporal Pulse Rate 76 85 Respiratory Rate 14 18 Blood Pressure 158/99 H 122/82 H Blood Pressure Mean 118 95 Pulse Ox 100 100 Oxygen Delivery Method Room Air Room Air MDM MDM MDM Narrative Medical decision making narrative: I reviewed his prior outpatient record. He has had multiple visits to the ED inthe past. He has not had CT imaging since February of last year, but is usually normal. He states he has been scoped in the past, but not by Dr. Friend. He iscurrently taking Pepcid for his abdominal problems. He was told to refrain frommarijuana smoking again. He was seen in the emergency department 5 days ago on the , and before that on the of last month. I reviewed his care plan and he is not to receive any narcotic pain medication or synthetic opiates. He was treated with IV fluids and 2 mg of Haldol. I reviewed that last time he received Zofran and Ativan which obviously only helped him temporarily. I will obtain CT imaging and laboratory work. I reviewed patient's laboratory work. He has slightly elevated white count of 12.1 which I think may be more nonspecific or could be demargination from his vomiting. Hemoglobin normal at 15.3 with hematocrit 45.2. Normal platelet count of 323. CMP was obtained and and review shows chloride elevated at 110 with normal sodium of 140, potassium normal at 4.1. Glucose appropriately elevated at 108 with a normal anion gap of 8. Lipase normal at 79. As this is his third visit within the last few weeks, I do feel that this time CT imaging should be indicated with IV contrast. I reviewed the imaging and see mild thickening of the colon on my interpretation. I reviewed the radiology report which mentions pancolitis. I discussed the patient with his coil maker,Dr. Marshall. He put in for stool studies, but the patient stated that he would be unable to provide a stool sample at this time. Additionally, he would like him placed on a prednisone burst of 40 mg for 10 days and for Augmentin for a week. Upon repeat examination, patient states he feels improved. He is able tostand, and he feels well and would like to be discharged, asking for his IV to be removed. I stressed the importance of taking his medications and following up with Dr. Marshall. I feel he can be discharged safely home with follow-up. Return instructions to the emergency department were reviewed. Disposition is discharged home in stable condition. Lab Data Attestation: I reviewed the patient's lab results. Labs: Laboratory Results - last 24 hr 06/15/22 06/15/22 12:50 12:50 WBC 12.1 H RBC 4.94 Hgb 15.3 Hct 45.2 MCV 91.5 MCH 31.0 MCHC 33.8 RDW Std Deviation 42.5 RDW Coeff of Tanya 12.7 Plt Count 323 MPV 9.6 Immature Gran % (Auto) 0.300 Neut % (Auto) 73.9 H Lymph % (Auto) 17.7 L Mohave % (Auto) 6.4 Eos % (Auto) 1.2 Baso % (Auto) 0.5 Absolute Neuts (auto) 8.9 H Absolute Lymphs (auto) 2.14 Nucleated RBC % 0 Sodium 140 Potassium 4.1 Chloride 110 H Carbon Dioxide 22.0 Anion Gap 8 BUN 6 L Creatinine 0.97 Estim Creat Clear Calc 113.38 Est GFR (MDRD) Af Amer 118 Est GFR (MDRD) Non-Af 97 BUN/Creatinine Ratio 6.2 L Glucose 108 H Calcium 9.5 Total Bilirubin 0.50 AST 16 ALT 22 Alkaline Phosphatase 56 Total Protein 7.6 Albumin 4.1 Globulin 3.5 Albumin/Globulin Ratio 1.2 Lipase 79 Radiography Diagnostic Testing: Clinical Impression(s) from Imaging Studies Abdomen/Pelvis CT 06/15/22 12:45 IMPRESSION: Findings in keeping with a pancolitis. Fatty infiltration of the liver. Electronically Signed: Darrian Jacobsen MD at 13:39 EST , Discharge Plan Triage Chief Complaint: Abd Pain ED Provider: Jono White Dx/Rx/DC Orders Clinical Impression: Pancolitis, Nausea, vomiting, and diarrhea Prescriptions: New prednisone 20 mg tablet 40 mg PO DAILY Qty: 20 0RF amoxicillin-pot clavulanate 875-125 mg tablet 1 tab PO BID Qty: 14 0RF No Action ondansetron HCl 4 mg tablet 4 mg PO Q6H PRN (Reason: nausea and vomiting) Qty: 20 0RF famotidine 20 mg tablet 20 mg PO BID Qty: 28 0RF Primary Care Provider: Mikayla Gill Referrals: Mikayla Gill MD [Primary Care Provider] - 3-5 Days if not improving Franco Marshall DO [Med Staff - Active Staff] - 3-5 Days Disposition Disposition: Home, Self Care What to do if you have Problems For any increased pain, shortness of breath, bleeding, nausea or vomiting, chestpain, or any unexpected problems, contact your Primary Care Provider. Call [facility] ([phone]) or report to the closest Emergency Room. Call 911 if necessary. 06/15/22 1540 <Electronically signed by Jono White MD> Cosigner Signature (if applicable): CC: Dr. Mikayla Gill MD; Franco Marshall DO ~ Signed [facility] Work Phone: [phone]) 992-926912-19-2022 History of Present illness Narrative* Candace Sheikh PA-C - 05/01/2022 7:08 AM EST This note was created using NoteWriter. Subjective Manav Rebolledo is a 26 year old male. HPI Patient presents with cough, congestion, body aches fever over the past 3 to 4 days. No chest pain or shortness of breath. He denies vomiting or diarrhea. He has had headache. No home COVID test done. Denies chronic medical problems. Review of Systems Constitutional: Positive for chills, fatigue and fever. HENT: Positive for congestion, rhinorrhea and sore throat. Negative for ear pain. Respiratory: Positive for cough. Negative for shortness of breath. Cardiovascular: Negative. Gastrointestinal: Negative. Genitourinary: Negative. Musculoskeletal: Positive for myalgias. Neurological: Positive for headaches. All other systems reviewed and are negative. PAST MEDICAL HISTORY Diagnosis Date Gastritis Current Outpatient Medications Medication Sig Dispense Refill omeprazole (PRILOSEC) 40 mg capsule TAKE 1 CAPSULE BY MOUTH DAILY FOUR weeks hydrOXYzine HCl (ATARAX) 25 mg tablet Take 1-2 tablets by mouth at bedtime as needed for itching/rash. 30 tablet 0 Ppbtciukxxcibdf-Alaynktkz-KQ (BROMFED DM) 2-30-10 mg/5 mL syrup Take 10 mL by mouth four times daily as needed. 200 mL 0 predniSONE (DELTASONE) 10 mg tablet Take 4 tabs daily x 3 days, then 3 tabs x 3 days, 2 tabs x 3 days, then 1 tab x3 days with food. (Patient not taking: Reported on 04/30/2022) 30 tablet 0 ondansetron orally disintegrating (ZOFRAN ODT) 4 mg disintegrating tablet Take 1 tablet by mouth every 6 hours as needed for Nausea/Vomiting. (Patient not taking: Reported on 11/16/2021 ) 9 tablet 0 No current facility-administered medications for this visit. PAST SURGICAL HISTORY Procedure Laterality Date APPENDECTOMY FAMILY HISTORY Problem Relation Age of Onset Hypertension Mother Social History Tobacco Use Smoking status: Former Smokeless tobacco: Never Vaping Use Vaping Use: Never used Substance Use Topics Alcohol use: Yes Drug use: Never Objective BP 128/88 Pulse 86 Temp 37.6 C (99.6 F) Resp 16 Wt 98.9 kg (218 lb) SpO2 98% Physical Exam Vitals reviewed. Constitutional: Appearance: Normal appearance. HENT: Head: Normocephalic and atraumatic. Right Ear: Tympanic membrane, ear canal and external ear normal. Left Ear: Tympanic membrane, ear canal and external ear normal. Nose: Congestion present. Mouth/Throat: Mouth: Mucous membranes are moist. Pharynx: Oropharynx is clear. Cardiovascular: Rate and Rhythm: Normal rate and regular rhythm. Heart sounds: Normal heart sounds. Pulmonary: Effort: Pulmonary effort is normal. Breath sounds: Normal breath sounds. Musculoskeletal: Cervical back: Neck supple. Skin: General: Skin is warm and dry. Findings: No rash. Neurological: Mental Status: He is alert. Assessment and Plan ASSESSMENT/PLAN: 1. Viral URI with cough - ICD9: 465.9, ICD10: J06.9 - Discussed viral etiology and rationale for treatment. - Symptomatic treatment with prn analgesia - Supportive care with fluids and rest - COVID WITH FLUA+B, ROUTINE Candace Sheikh PA-C [facility] Instructions* Patient Instructions* Olivia Weller PA-C - 11/16/2021 8:43 AM EDT [facility] PATIENT INFO CONTACT DERMATITIS OVERVIEW Dermatitis is defined as an inflammation of the skin. Contact dermatitis refers to dermatitis that is caused by contact between the skin and a substance. The substance can be an allergen (a substancethat provokes an allergic reaction) or an irritant (a substance that damages the skin). Irritants are responsible for about 80 percent of cases of contact dermatitis. In most cases, self-care measures and drug therapy can control the symptoms and prevent complications of contact dermatitis. IRRITANT CONTACT DERMATITIS Irritant contact dermatitis occurs when the skin comes in direct contact with a substance that physically, mechanically, or chemically irritates the skin, causing the normal skin barrier to be disrupted. Cause The most common causes of irritant dermatitis are products used on a daily basis, including soap, cleansers, and rubbing alcohol. People with other skin conditions, dry skin, and light-colored or fair skin are at greatest risk, although anyone can develop irritant dermatitis. Symptoms Mild irritants cause redness, dryness, fissures (small cracks), and itching. Strong irritants may cause swelling, oozing, tenderness, or blisters. The hands are commonly affected, often between the fingers. Irritant dermatitis can also affect the face, especially the thin skin of the eyelids. Diagnosis The diagnosis of irritant contact dermatitis is usually based upon a person's history andphysical examination. In some cases, a patch test (applying a small amount of a substance to the skin) may be recommended to determine if the dermatitis is allergic or irritant-type. Patch testing should be done by a logistics loss prevention manager or parts department supervisor who is trained in this procedure. Treatment The goal of treatment of irritant contact dermatitis is to restore the normal skin barrier and protect the skin from future injury. Reducing exposure to known irritants is essential. In some cases, simply reducing the use of soap and using an emollient cream or ointment completely alleviates symptoms. Wearing gloves when working with irritants may help as well. In more severe cases, topical corticosteroids (steroids) may be recommended. Steroid creams and ointments are available in a variety of strengths (potencies); the least potent are available in the [place] without a prescription (eg, hydrocortisone 1 percent cream). More potent formulations req uire a prescription. Steroid treatments for contact dermatitis are most effective when applied and covered with a barrier, such as plastic wrap, a dressing (eg, Telfa), cotton gloves, or petroleum jelly. Oral steroids (eg, prednisone) may be used briefly to treat severe dermatitis, but are not recommended for long-termtreatment of irritant contact dermatitis. ALLERGIC CONTACT DERMATITIS Allergic contact dermatitis occurs when the skin comes in direct contact with an allergen. This activates the body's immune system, which triggers inflammation. Allergic contact dermatitis can occur after being exposed to a new product or after using a product for months or years. Common allergens Poison shawanda, poison oak, and poison sumac contain an oil called urushiol, which is the most common cause of allergic contact dermatitis. Ginkgo fruit and the skin of mangos also contain urushiol and can cause allergic contact dermatitis. Other common allergens include nickel in jewelry, perfumes and cosmetics, components of rubber, nail divehi, and chemicals in shoes (both leather and synthetic). Allergic contact dermatitis can also be triggered by certain medications, including hydrocortisone cream, antibiotic creams (eg, Neosporin , Bacitracin ), benzocaine, and thimerosal. Laundry detergents are an uncommon cause of allergic contact dermatitis. Symptoms Symptoms include intense itching and a red raised rash. The rash is usually limited to areas that were in direct contact with the allergen, but a rash can appear in other areas of the body, if the allergen was transferred to those areas on a person's hands. Washing the allergen away with soap and water can usually prevent this spread. The rash typically appears within 12 to 48 hours of exposure to the allergen, although in some cases it may not appear for up to two weeks. Less commonly, the rash persists for months or years, whichmakes it difficult to identify the cause of the reaction. Diagnosis The diagnosis of allergic contact dermatitis is based upon a person's history and physical examination. If symptoms improve after the allergen is eliminated, this supports the diagnosis. Patch testing may be recommended in some cases and is usually performed by a logistics loss prevention manager or parts department supervisor. Treatment Allergic contact dermatitis usually resolves within two to four weeks after the allergen is eliminated, although it can take more time in some cases. Several measures can minimize symptoms during this time and help to control symptoms in people who have chronic allergic contact dermatitis. Whenever possible, identify and stop all exposure to the allergen. Oatmeal baths or soothing lotions such as calamine lotion can provide relief in mild cases. Topical antihistamines (eg, Benadryl cream) may be effective in some people. Topical corticosteroids (steroids) may be recommended for people with mild to moderate symptoms. Steroid creams and ointments are available in a variety of strengths (potencies); the least potent areavailable in the [place] without a prescription (eg, hydrocortisone 1 percent cream). More potent formulations require a prescription. For people with more bothersome symptoms, wet or damp dressings are recommended, especially when the affected area is oozing fluid and crusting. Such dressings are soothing and relieve itching, reduce redness, gently remove crusts, and prevent additional injury from scratching. A damp cotton garment (the garment is soaked with water and then wrung out) is worn over the affected area and covered with a dry garment. As an example, for an adult with allergic contact dermatitisof the legs, wet long underwear can be covered with larger dry long underwear. Adults may prefer toapply wet dressings at night. When used during the day, wet dressings should be changed every eight hours. Infants and toddlers with extensive skin involvement can wear wet pajamas covered by a dry pair of pajamas or a sleep sack. In people with severe dermatitis, a short course of oral steroids (eg, prednisone) may be recommended to get symptoms under control. LATEX DERMATITIS Latex is a fluid produced by rubber trees that is processed into a variety of products, including gloves, balloons, and condoms. In some individuals, exposure to these products and others (such as rubber bands, erasers, feeding nipples, pacifiers) can cause a contact dermatitis that is either an irritant or allergic reaction. Less commonly, a person can develop a potentially life-threatening allergic reaction to latex. Irritant dermatitis Irritant dermatitis usually occurs on the hands of people who wear latex or other rubber gloves; the latex acts as an irritant and the gloves trap moisture against the skin. The skin dries out when the gloves are removed, leading to the dermatitis. The symptoms of irritant rubber or latex dermatitis include redness and itching on the skin. There may also be dryness and cracking. Symptoms usually occur within 12 to 36 hours of touching a latex product. Treatment involves avoiding use of any latex-containing products. Latex allergy Latex can trigger allergic contact dermatitis. The skin reaction caused by a latex allergy does not differ significantly from that of irritant latex dermatitis. Other manifestations of latex allergy include urticaria (hives) immediately after contact with latex at the site of contact and a severe allergic reaction, which causes swelling, sneezing, and wheezing. Rarely, anaphylaxis can occur, which causes life-threatening difficulty with breathing. Diagnosis In most cases, the diagnosis of latex allergy is based upon a person's history of exposure. People with a severe latex allergy may immediately develop hives, nasal symptoms, swelling, or wheezing after latex exposure. These individuals may need to see a logistics loss prevention manager or parts department supervisor for specialized skin patch tests and blood testing to verify the latex allergy. Treatment The primary treatment for latex allergy is to avoid all latex- containing products. Non-latex examination gloves are widely available, and use of glove liners may also be an effective approach. Natural membrane (sometimes called sheep skin) condoms may be used in place of latex condoms, and are effective for preventing . However, natural membrane condoms do not protect against sexually transmitted diseases such as HIV, gonorrhea, and chlamydia. People with a serious latex allergy should wear a bracelet, necklace, or similar alert tag at all times. If a reaction occurs and the person is too ill to explain their condition, this will help responders provide the proper care as quickly as possible. This measure is especially important in children. The alert tag should include a list of known allergies, as well as the name and phone number ofan emergency contact. People with a latex allergy should inform their doctors, dentists, and other healthcare providers about their allergy. Some patients are advised to carry an anaphylaxis kit (containing epinephrine that can be injected under the skin) as a precautionary measure. [facility] History of Present illness Narrative* Olivia Weller PA-C - 11/16/2021 8:35 AM EDT Subjective HPI HPI Manav Rebolledo is a 26 year old male who presents today for CC of suspected poison sumac x 3days. Notes that he identified it after the fact,and realizing he'd been exposed to a lot of it. +Pruritus. Worse on the hands, had been worse on face (perioral, on nose) the past few days, and is now also on lower extremities. Pt has tried OTC steroid cream, benadryl, and a calamine equivalent with minimal relief in symptoms. BP 112/80 Pulse 62 Temp 36.2 C (97.2 F) (Tympanic) Resp 16 Wt 99.8 kg (220 lb) SpO2 98% ALLERGIES No Known Allergies There is no problem list on file for this patient. No family history on file. Social History Tobacco Use Smoking status: Current Some Day Smoker Smokeless tobacco: Never Used Substance Use Topics Alcohol use: Not on file Drug use: Not on file Review of Systems Constitutional: Negative for chills, fever and malaise/fatigue. HENT: Negative for congestion and sore throat. Respiratory: Negative for cough and wheezing. Skin: Positive for itching and rash. Objective BP 112/80 Pulse 62 Temp 36.2 C (97.2 F) (Tympanic) Resp 16 Wt 99.8 kg (220 lb) SpO2 98% Physical Exam Constitutional: Appearance: Normal appearance. He is not ill-appearing. Skin: Findings: Rash present. Rash is papular and vesicular. Comments: Papulovesicular eruption noted on hands bilaterally, bilateral lower extremities, and to much lesser degree on upper lip -- with dry scaling noted on upper lip as well Neurological: Mental Status: He is alert. Psychiatric: Behavior: Behavior is cooperative. ASSESSMENT/PLAN: 1. Allergic contact dermatitis, unspecified trigger - ICD9: 692.9, ICD10: L23.9 - Oral Steriod tx -Prednisone taper - Anti itch therapy of Rx for Atarax recommended prn - discussed skin care of rash - follow up if symptoms persist or worsen. - PREDNISONE 10 MG TABLET - HYDROXYZINE HCL 25 MG TABLET Pt advised to see PCP if symptoms persist or progress. Reviewed red flags with patient and when to seek care sooner. The patient indicates understanding of these issues and agrees with the plan. Olivia Weller PA-C documented in this encounterSumma Health Barberton CampusDischar summary Author Roney Paul [facility] June 24, 2022 7:04am Note Date/Time June 24, 2022 7:03am [facility] Medical Records Department [address] [place] [address] Emergency Department Summary 06/24/22 MR#: [id number] Acct: [id number] Name: MANAV REBOLLEDO Rep #:[id number] : 1995 26 From: Roney Paul DO PCP: Dr. Mikayla Gill MD Status:REG ER Location: ED HPI History of Present Illness Chief Complaint: Abd Pain Narrative Narrative: Patient is a 26-year-old male who has a history of chronic/recurrent abdominal pain. He was seen 8 days ago secondary to recurrent symptoms and at that time was found to have pancolitis. The case was discussed with GI Dr. Marshall who recommended 10 days of steroids and 7-day course of Augmentin. Patient states he finished the Augmentin and is just about done with the steroids. He states he awoke this morning and had an episode of increasing pain and secondary to this took Zofran and Pepcid. He states the pain was persisting however and secondary to this he comes to the hospital for evaluation. [facility] Medical History Abdominal pain Depression Former smoker Nausea and vomiting Subclinical hypothyroidism Vitamin D deficiency Home Medications famotidine 20 mg tablet 20 mg PO BID #28 TABLETS 06/10/22 [Rx Last Taken Unknown] ondansetron HCl 4 mg tablet 4 mg PO Q6H PRN nausea and vomiting #20 tabs 06/10/22 [Rx Last Taken Unknown] prednisone 20 mg tablet 40 mg PO DAILY #20 tabs 06/15/22 [Rx Last Taken Unknown] Allergy/AdvReac Type Severity Reaction Status Date / Time adhesive tape Allergy Rash Verified 06/24/22 06:24 ibuprofen [From Motrin] AdvReac Upset Verified 06/24/22 06:24 Stomach Family History Mother Asthma Surgical History History of appendectomy Social History household members: significant other Smoking Status: Current every day smoker tobacco type: cigarettes alcohol intake: never substance use type: marijuana ROS ROS ED Constitutional Constitutional ED: Denies chills or fever(s) ENT ENT ED: Denies sore throat Cardiovascular Cardiovascular: Denies chest pain Respiratory/Chest Respiratory/Chest: Denies cough or dyspnea Gastrointestinal Gastrointestinal: Reports abdominal pain and nausea; Denies diarrhea, melena or vomiting Genitourinary Genitourinary ED: Denies dysuria Musculoskeletal Musculoskeletal: Denies myalgias Integumentary Denies rash Neurologic Neurologic: Denies headache(s) Hematologic/Lymphatic Hematologic/Lymphatic: Denies easy bleeding or easy bruising EXAM Physical Exam Const Vital Signs: 06/24/22 06:18 Temperature 96.9 F L Temperature Source Temporal Pulse Rate 66 Respiratory Rate 17 Blood Pressure 147/77 H Blood Pressure Mean 100 Pulse Ox 100 Oxygen Delivery Method Room Air Positive well nourished and well developed General Appearance ED: well developed HEENT Reports moist mucous membranes HEENT Narrative: No signs of infection noted in the posterior pharynx Eyes PERRL and EOMs intact bilaterally General Eye ED: Negative for scleral icterus Neck supple Neck Narrative: No crepitance palpated Resp normal respiratory effort and clear to auscultation bilaterally Cardio regular rate and regular rhythm GI non-distended GI Narrative: Abdomen is soft and nondistended with normal active bowel sounds. There is milddiffuse pain on palpation without voluntary guarding or rigidity. No pulsatile mass or fluid wave Auscultation: normoactive bowel sounds Palpation: soft Extremity normal to inspection Neuro oriented x3 and CN's II-XII intact bilaterally Sensorium / Orientation: alert Psych mental status grossly normal Skin no rashes or lesions noted General Skin Exam: Negative for jaundice MDM MDM MDM Narrative Medical decision making narrative: Patient presented to the ER with stable vitals. His recent ER visits were reviewed and this confirmed the diagnosis of pancolitis on recent CAT scan with mildly elevated white count as well as consultation with Dr. Marshall. The patient's abdomen exam today is nonfocal/nonsurgical and I have low concern thathe has developed a secondary intestinal abscess or perforation or obstruction. I discussed with patient that we can repeat laboratory studies at this time to check for worsening areas of inflammation and provide IV hydration as well as treatment. The patient states he is feeling better at this time and does not want to go through the trauma of IV insertion. Therefore he was given a GI cocktail and oral Protonix. On reevaluation he does report improvement of his symptoms and his abdomen remains soft and nonsurgical. Therefore as this appears to be an acute exacerbation of his chronic pain and physical exam does not suggest intestinal abscess inflammatory obstructive process or systemic infection he is otherwise safe for discharge and can follow-up with his GI physician on an outpatient basis Discharge Plan Triage Chief Complaint: Abd Pain ED Provider: Roney Paul Dx/Rx/DC Orders Clinical Impression: Colitis Instructions: ED Understanding Colitis Prescriptions: No Action ondansetron HCl 4 mg tablet 4 mg PO Q6H PRN (Reason: nausea and vomiting) Qty: 20 0RF famotidine 20 mg tablet 20 mg PO BID Qty: 28 0RF prednisone 20 mg tablet 40 mg PO DAILY Qty: 20 0RF Primary Care Provider: Mikayla Gill Referrals: Mikayla Gill MD [Primary Care Provider] - Franco Marshall DO [Med Staff - Active Staff] - Activity Restrictions/Additional Instructions: Please continue with the medication as directed by your GI physician and return to the ER should you have any further concerns Disposition Disposition: Home, Self Care What to do if you have Problems For any increased pain, shortness of breath, bleeding, nausea or vomiting, chestpain, or any unexpected problems, contact your Primary Care Provider. Call [facility] ([phone]) or report to the closest Emergency Room. Call 911 if necessary. 06/24/22 0704 <Electronically signed by Roney Paul DO> Cosigner Signature (if applicable): CC: Dr. Mikayla Gill MD ~ Signed [facility] Work Phone: Discharge summary Author Roney Elvimary [facility] March 31, 2023 1:11am Note Date/Time March 31, 2023 1:06am [facility] Medical Records Department [address] [place] [address] Emergency Department Summary 03/31/23 MR#: [id number] Acct: [id number] Name: MANAV REBOLLEDO Rep #:[id number] : 1995 27 From: Roney Paul DO PCP: Dr. Mikayla Gill MD Status:REG ER Location: ED HPI History of Present Illness Chief Complaint: Nausea/Vomiting Informant: patient Narrative Narrative: Patient is a 27-year-old male with past medical history of recurrent abdominal pain as well as THC use and cyclic vomiting syndrome. He states multiple peoplehave been sick at work and over the last 24 hours he has had generalized abdominal discomfort with bouts of nausea and vomiting. He states he has not been able to keep any food or fluid down and has concern for dehydration and therefore comes in for evaluation. [facility] Medical History Abdominal pain Depression Former smoker Nausea and vomiting Subclinical hypothyroidism Vitamin D deficiency Home Medications famotidine 20 mg tablet 20 mg PO BID #28 TABLETS 06/10/22 [Rx Last Taken Unknown] ondansetron HCl 4 mg tablet 4 mg PO Q6H PRN nausea and vomiting #20 tabs 06/10/22 [Rx Last Taken Unknown] ondansetron 4 mg disintegrating tablet 4 mg PO TID PRN nausea and vomiting #21 tabs 03/31/23 [Rx Last Taken Unknown] Allergy/AdvReac Type Severity Reaction Status Date / Time adhesive tape Allergy Rash Verified 03/30/23 23:34 ibuprofen [From Motrin] AdvReac Upset Verified 03/30/23 23:34 Stomach Family History Mother Asthma Surgical History History of appendectomy Social History household members: significant other Smoking Status: Current every day smoker tobacco type: cigarettes alcohol intake: never substance use type: marijuana ROS ROS ED Constitutional Constitutional ED: Denies chills or fever(s) ENT ENT ED: Reports rhinorrhea; Denies sore throat Cardiovascular Cardiovascular: Denies chest pain Respiratory/Chest Respiratory/Chest: Denies cough or dyspnea Gastrointestinal Gastrointestinal: Reports abdominal pain, nausea and vomiting; Denies diarrhea Genitourinary Genitourinary ED: Denies dysuria Musculoskeletal Musculoskeletal: Reports myalgias Integumentary Denies rash Neurologic Neurologic: Denies headache(s) Hematologic/Lymphatic Hematologic/Lymphatic: Denies easy bleeding or easy bruising EXAM Physical Exam Const Vital Signs: 03/30/23 23:32 Temperature 98 F Temperature Source Temporal Pulse Rate 100 Respiratory Rate 16 Blood Pressure 154/81 H Blood Pressure Mean 105 Pulse Ox 99 Oxygen Delivery Method Room Air Positive well nourished and well developed General Appearance ED: well developed HEENT HEENT Narrative: Mucous membranes are slightly dry and tacky No dried blood or active bleeding noted in the posterior pharynx No secondary changes to suggest infection Eyes PERRL and EOMs intact bilaterally General Eye ED: Negative for scleral icterus Neck supple Resp normal respiratory effort and clear to auscultation bilaterally Cardio regular rate and regular rhythm Rate: other Other Details: Radial and carotid pulses are equal and symmetric GI non-distended GI Narrative: Abdomen is soft and nondistended with hyperactive bowel sounds. There is mild diffuse pain with palpation without voluntary guarding or rigidity No pulsatile mass or fluid wave Auscultation: hyperactive bowel sounds Palpation: soft Extremity normal to inspection Neuro oriented x3, CN's II-XII intact bilaterally and no sensory deficits noted Sensorium / Orientation: alert Motor Exam: strength 5/5 throughout Psych mental status grossly normal Skin no rashes or lesions noted Skin Narrative: Skin turgor is slightly increased General Skin Exam: Negative for jaundice MDM MDM MDM Narrative Medical decision making narrative: Patient presented to the ER slightly hypertensive but otherwise with stable vitals. Differential diagnosis for his report of abdominal pain with nausea andvomiting is viral stomach infection versus biliary colic versus pancreatitis versus gastritis versus colitis there is also concern for electrolyte derangement acute kidney injury. Basic blood work was obtained which reveals slight leukocytosis but otherwise no signs of acute kidney injury or severe electrolyte derangement. Patient was given IV fluids as well as Haldol [place] Pepcid and on reevaluation reports feeling better and has had no further bouts of vomiting in the ER. On repeat evaluation his abdomen remains soft and nonsurgical. Therefore at this time as laboratory studies do not suggest severedehydration or acute kidney injury or severe electrolyte derangement and his symptoms have improved with treatment I do not feel there is need for CAT scan or further work-up and he is otherwise safe for discharge. History & Record Review Discussion w/independent historian: Patient Lab Data Labs: Laboratory Results - last 24 hr 03/31/23 00:08 WBC 12.1 H RBC 4.86 Hgb 15.2 Hct 44.8 MCV 92.2 MCH 31.3 MCHC 33.9 RDW Std Deviation 43.3 RDW Coeff of Tanya 12.6 Plt Count 307 MPV 9.9 Immature Gran % (Auto) 0.600 Neut % (Auto) 86.6 H Lymph % (Auto) 8.0 L [place] % (Auto) 4.6 Eos % (Auto) 0.0 Baso % (Auto) 0.2 Absolute Neuts (auto) 10.5 H Absolute Lymphs (auto) 0.96 Nucleated RBC % 0 Sodium 139 Potassium 3.9 Chloride 108 H Carbon Dioxide 25.0 Anion Gap 6 BUN 15 Creatinine 1.26 Estim Creat Clear Calc 86.50 Est GFR (MDRD) Af Amer 87 Est GFR (MDRD) Non-Af 72 BUN/Creatinine Ratio 11.9 Glucose 143 H Calcium 10.2 H Total Bilirubin 0.40 Direct Bilirubin 0.12 AST 17 ALT 28 Alkaline Phosphatase 67 Total Protein 8.6 H Albumin 4.6 Globulin 4.0 Lipase 27 Discharge Plan Triage Chief Complaint: Nausea/Vomiting ED Provider: Roney Paul Dx/Rx/DC Orders Clinical Impression: Mild dehydration, Nausea and vomiting, Abdominal pain Instructions: ED Dehydration (Adult), ED Vomiting (Adult) Prescriptions: New ondansetron 4 mg tablet,disintegrating 4 mg PO TID PRN (Reason: nausea and vomiting) Qty: 21 0RF No Action ondansetron HCl 4 mg tablet 4 mg PO Q6H PRN (Reason: nausea and vomiting) Qty: 20 0RF famotidine 20 mg tablet 20 mg PO BID Qty: 28 0RF Primary Care Provider: Mikayla Gill Referrals: Mikayla Gill MD [Primary Care Provider] - Activity Restrictions/Additional Instructions: Please take the Zofran as directed to help control nausea and vomiting and keep yourself well-hydrated. If you have any further concerns or worsening symptoms please return to the ER for repeat evaluation Disposition Disposition: Home, Self Care What to do if you have Problems For any increased pain, shortness of breath, bleeding, nausea or vomiting, chestpain, or any unexpected problems, contact your Primary Care Provider. Call [facility] ([phone]) or report to the closest Emergency Room. Call 911 if necessary. 03/31/23 0111 <Electronically signed by Roney Paul DO> Cosigner Signature (if applicable): CC: Dr. Mikayla Gill MD ~ Signed [facility] Work Phone: Discharge summary Author Benny Stacy [facility] July 30, 2023 3:26am Note Date/Time July 30, 2023 3:1 8am [facility] Medical Records Department [address] [place] [address] Emergency Department Summary 07/30/23 MR#: [id number] Acct: [id number] Name: MANAV REBOLLEDO Rep #:[id number] : 1995 28 From: Benny Stacy MD PCP: Care Physician,No Primary Status :REG ER Location: ED HPI HPI - GI History of Present Illness Chief Complaint: Abd Pain Detail of Chief Complaint: Associated with nausea, vomiting diarrhea per triage. Informant: patient and spouse/S.O. Abdominal Pain/Flank Pain Onset: Today Context: Sudden Onset Timing: Continuous (Pain is continuous. He has history of colitis and is seen by Dr. Marshall) Quality: Aching and Cramping Location: Diffuse Current Severity: Severe Maximum Severity: Severe Worsened by: Movement Relieved by: Nothing Nausea/Vomiting/Emesis GI Symptom: Positive for Nausea and Vomiting Onset: Today Quality: Negative for Nonbilious, Blood streaks, Coffee ground or Hematemesis Diarrhea/Melena/Hematochezia GI Symptom: Positive for Diarrhea (1 or 2 mushy stools); Negative for Melena or Hematochezia Associated Symptoms Associated Symptoms: Negative for Dysuria, Frequency, Hematuria or Urgency Narrative Narrative: Patient is a 28-year-old male. He has history of gastritis, abdominal pain, nausea and vomiting. Review of prior records indicate he has history of cannabis use. He presents because of abdominal pain nausea vomiting diarrhea per significant other since he was not answering many questions. Significant other states this has happened in the past when he had a flare of his colitis. He is present on no medicine. His colitis is treated with diet. He has intolerance to dairy products. He his significant other denied history of lactulose intolerance or celiac sprue disease. Patient was scoped by Dr. Louie Lerma. Patient had evidence of gastritis. There is no evidence of ulcer. Furthermore Dr. Marshall's note was reviewed. He believes patient has irritable bowel syndrome. There is no mention of Crohn's disease or ulcerative colitis. He had a case of colitis noted on CAT scan June 2022. He has had numerous ER visits in the past 12 months with no known cause of his abdominal pain. Prior similar symptoms: Yes Recent Illness/Hospitalization: No PFSH PFSH Medical History Abdominal pain Depression Former smoker Nausea and vomiting Subclinical hypothyroidism Vitamin D deficiency Home Medications ondansetron 4 mg disintegrating tablet 4 mg PO TID PRN nausea and vomiting #21 tabs 03/31/23 [Rx Last Taken Unknown] escitalopram oxalate 20 mg tablet 20 mg PO DAILY 07/30/23 [History Last Taken Unknown] Allergy/AdvReac Type Severity Reaction Status Date / Time adhesive tape Allergy Rash Verified 07/30/23 01:19 ibuprofen [From Motrin] AdvReac Upset Verified 07/30/23 01:19 Stomach Family History Mother Asthma Surgical History History of appendectomy Social History household members: significant other Smoking Status: Never smoker alcohol intake: never substance use type: marijuana ROS ROS ED Constitutional Constitutional ED: Denies chills, fever(s), subjective, sweats or weight loss ENT ENT ED: Denies ear pain, rhinorrhea or sore throat Cardiovascular Cardiovascular: Denies chest pain, orthopnea, palpitations, paroxysmal nocturnaldyspnea or racing heartbeat Respiratory/Chest Respiratory/Chest: Denies cough, dyspnea, dyspnea on exertion, orthopnea or paroxysmal nocturnal dyspnea Gastrointestinal Gastrointestinal: Reports abdominal pain, diarrhea, nausea and vomiting; Denies constipation or melena Genitourinary Genitourinary ED: Denies dysuria, hematuria or urinary frequency Musculoskeletal Musculoskeletal: Denies arthralgias, back pain, myalgias or neck pain Integumentary Denies rash Endocrine Endocrinology: Denies polydipsia or polyphagia Hematologic/Lymphatic Hematologic/Lymphatic: Denies easy bleeding or easy bruising EXAM Physical Exam Const Vital Signs: 07/30/23 01:14 07/30/23 01:55 07/30/23 01:18 Temperature 99.6 F H 98 F Temperature Source Temporal Oral Pulse Rate 72 62 62 Respiratory Rate 18 15 17 Blood Pressure 126/113 H 159/76 H 152/89 H Blood Pressure Mean 117 103 110 Pulse Ox 98 100 97 Oxygen Delivery Method Room Air Room Air Room Air 07/30/23 03:04 07/30/23 02:18 07/30/23 03:00 Temperature 98.1 F 98 F Temperature Source Oral Oral Pulse Rate 62 51 L 48 L Respiratory Rate 17 16 16 Blood Pressure 148/89 H 148/89 H 162/95 H Blood Pressure Mean 108 108 117 Pulse Ox 100 100 100 Oxygen Delivery Method Room Air Room Air Room Air Patient has occasional myoclonic twitch. He had no eye contact during the history and physical. He moaned at times. Positive well nourished and well developed General Appearance ED: well developed; Negative for pallor HEENT Reports TM's clear and moist mucous membranes normocephalic and atraumatic Tympanic Membrane ED: Yes TM's clear Eyes PERRL and EOMs intact bilaterally General Eye ED: Negative for pale conjunctiva or scleral icterus Neck no lymphadenopathy, supple and no JVD Resp normal respiratory effort and clear to auscultation bilaterally Cardio regular rate, regular rhythm, S1 normal heart sound, S2 normal heart sound and no murmurs GI no masses; Negative for non-tender or non-distended GI Narrative: Abdomen is tympanitic. Does have guarding on able to determine this is voluntary or involuntary. Inspection: abdominal distention Auscultation: hypoactive bowel sounds Palpation: soft and tender other (Tenderness is diffuse.); Negative for rigid, mass, pulsatile mass or rebound tenderness present Back/Spine no CVA tenderness Extremity full ROM General Extremety ED: Negative for edema or tenderness General Extremity: Negative for edema Neuro CN's II-XII intact bilaterally and moves all extremities Psych Psych Narrative: As previously documented there was no eye contact. He occasionally would moan. At 1 point I was asked to return and see him because he was having abnormal movement. Suspect this is voluntary abnormal movement. Skin no wounds General Skin Exam: Negative for jaundice or pallor Lesions: no lesions Rashes: no rashes MDM MDM MDM Narrative Medical decision making narrative: Differential diagnoses abdominal pain of unknown etiology, colitis, cannabis hyperemesis syndrome with pain, irritable bowel syndrome, there is a history of gastritis per Dr. Louie Lerma's note. History & Record Review Additional record(s) reviewed:: Prior inpatient record (He was admitted approximately 2 months ago for colitis. This was not felt to be inflammatory.),Prior outpatient record, Prior ED visit and Prior labs Lab Data Attestation: I reviewed the patient's lab results. Lab results narrative: White count is elevated. This is nonspecific. Electrolyte panel is remarked for creatinine of 1.31 with an estimated GFR of 68. Lactate is normal. Hepaticprofile was unremarkable. Labs: Laboratory Results - last 24 hr 07/30/23 07/30/23 07/30/23 01:25 01:47 02:25 WBC 15.0 H RBC 4.91 Hgb 15.4 Hct 45.7 MCV 93.1 MCH 31.4 MCHC 33.7 RDW Std Deviation 44.0 H RDW Coeff of Tanya 12.9 Plt Count 342 MPV 9.8 Immature Gran % (Auto) 0.700 Neut % (Auto) 84.5 H Lymph % (Auto) 8.4 L [place] % (Auto) 5.9 Eos % (Auto) 0.1 Baso % (Auto) 0.4 Absolute Neuts (auto) 12.6 H Absolute Lymphs (auto) 1.26 Nucleated RBC % 0 Sodium 138 Potassium 3.8 Chloride 104 Carbon Dioxide 23.0 Anion Gap 11 BUN 13 Creatinine 1.31 H Estim Creat Clear Calc 91.55 Est GFR (MDRD) Af Amer 83 Est GFR (MDRD) Non-Af 68 BUN/Creatinine Ratio 9.9 L Glucose 131 H Lactic Acid Cancelled 1.9 Calcium 10.3 H Total Bilirubin 0.60 AST 21 ALT 28 Alkaline Phosphatase 66 Total Protein 8.8 H Albumin 4.9 Globulin 3.9 Albumin/Globulin Ratio 1.3 Radiography Diagnostic Testing: Clinical Impression(s) from Imaging Studies Abdomen/Pelvis CT 07/30/23 01:32 IMPRESSION: Negative CT of the abdomen and pelvis with intravenous contrast. Electronically Signed: Leland Saldaña MD at 2:50 EDT , CT was reviewed and agree there is no abnormality noted. Suspect his nausea vomiting and abdominal pain is due to cannabis hyperemesis syndrome. Discharge Plan Triage Chief Complaint: Abd Pain Other Complaint: Nausea/Vomiting/Diarrhea ED Provider: RegisBenny Dx/Rx/DC Orders Clinical Impression: Abdominal pain of unknown etiology, Hyperlipidemia, Nausea & vomiting, Leukocytosis, Elevated serum creatinine, Hx of anxiety disorder, History of IBS Instructions: ED Irritable Bowel Syndrome, ED Abdominal Pain Unkn Cause Male... Prescriptions: No Action ondansetron 4 mg tablet,disintegrating 4 mg PO TID PRN (Reason: nausea and vomiting) Qty: 21 0RF escitalopram oxalate 20 mg tablet 20 mg PO DAILY Primary Care Provider: Care Physician,No Primary Referrals: Care Physician,No Primary [Primary Care Provider] - Doctor,Your [Non-Staff] - 3-5 Days if not improving Activity Restrictions/Additional Instructions: You will need to follow-up with your doctor. The name of your doctor appears onyour insurance card issued to you by care source. Reviewing prior records Dr. Marshall believes you have irritable bowel syndrome. You were given information on irritable bowel syndrome. Disposition Disposition: Home, Self Care What to do if you have Problems For any increased pain, shortness of breath, bleeding, nausea or vomiting, chestpain, or any unexpected problems, contact your Primary Care Provider. Call [facility] ([phone]) or report to the closest Emergency Room. Call 911 if necessary. 07/30/23 0326 <Electronically signed by Benny Stacy MD> Cosigner Signature (if applicable): CC: No Primary Care Physician ~ Signed [facility] Work Phone: Evaluation note* Diagnosis Onset Date Resolution Status Abdominal pain acute COVID-19 virus infection acu te Hyperlipidemia acute Subclinical hypothyroidism a cute Vitamin D deficiency acute [facility] Work Phone: Evaluation note* Diagnosis Onset Date Resolution Status Abdominal pain acute [facility] Work Phone: Evaluation note* Diagnosis Allergic contact dermatitis, unspecified trigger- Primary [facility] Diagnosis Onset Date Resolution Status Abdominal pain acute Anxiety acute [facility] Work Phone: evaluation note* Diagnosis Onset Date Resolution Status Abdominal pain acute Anxiety acute Subclinical hypothyroidism a cute Anxiety acute [facility] Work Phone: Evaluation note* Diagnosis Onset Date Resolution Status Anxiety acute Subclinical hypothyroidism a cute Anxiety acute [facility] Work Phone: Evaluation note* Diagnosis Viral URI with cough- Primary Acute upper respiratory infections of unspecified site documented in this encounter [facility] note* Diagnosis Onset Date Resolution Status Anxiety acute [facility] Work Phone: Evaluation noteNo assessment information available [facility] Work Phone: Evaluation note* Diagnosis Right-sided chest wall pain- Primary Painful respiration Costochondritis Tietze's disease Right-sided chest wall pain Painful respiration documented in this encounter [facility] note* Diagnosis Right-sided chest wall pain Painful respiration [facility] Discharge instructions Additional Instructions Avoid marijuana use. Follow up with Dr. Marshall.[facility] Work Phone: Hospital Discharge instructions Additional Instructions Your lab work was normal today. Continue to abstain from marijuana use as this might be contributing to your nausea and vomiting. This possibly could have a GI bug that is causing it. Try to drink fluids and just have a liquid diet for the next day or 2 until you are feeling better.[facility] Work Phone: Hospital Discharge instructions Additional Instructions Please continue with the medication as directed by your GI physician and return to the ER should you have any [facility] Work Phone[facility] Discharge instructions Additional Instructions Please continue the medication prescribed by your coil maker as directed as your work-up today reveals no clinically significant changes. Keep yourself well-hydrated and if you have any further concerns please return to the ER [facility] Work Phone: Hospital Discharge instructions Additional Instructions Please take the Zofran as directed to help control nausea and vomiting and keep yourself well-hydrated. If you have any further concerns or worsening symptoms please return to the ER [facility] Work Phone: Hospital Discharge instructions Additional Instructions You will need to follow-up with your doctor. The name of your doctor appears on your insurance card issued to you by care source. Reviewing prior records Dr. Marshall believes you have irritable bowel syndrome. You were given information on irritable bowel syndrome.[facility] Work Phone: Reason for visit Narrative* Diagnostic Procedure Only (Urgent) - Closed Specialty Diagnoses / Procedures Referred By Carlo t Referred To Contact XR IMAGING Diagnoses Right-sided chest wall pain Procedures XR RIBS/CHEST 3V AP RIB/OBLS/CXR RIGHT RADEX RIBS UNI W/POSTEROANT CH MINIMUM 3 VIEWS Brayden Potter MD [address] [place] [address] Phone: tel: fax: [place] [id number] Referral ID Status Reason Start Date Expiration Date V isits Requested Visits Authorized [id number] Closed Auto-Generate d Referral 09/15/2024 10/15/2025 1 1 [facility] Summary Purpose Family History No Family History Records Found Relationship Condition Age at Onset Recorded Date/T loan mother Asthma Unknown Advance Directives No Advanced Directives Records Found Advance Directive Response Recorded Date/ Time Living Will No September 01, 2021 11:19pm Power of Sand Bobber No September 01 11:19pm Advance Directive Response Recorded Date/ Time Living Will No September 04, 2021 10:17am Power of Sand [employer]ber No September 04 10:17am Advance Directive Response Recorded Date/ Time Living Will No November 23, 2021 4:23am Power of [place]ber No November 23 4:23am Advance Directive Response Recorded Date/ Time Living Will No November 23, 2021 10:16am Power of Sand [place]ber No November 23 10:16am Advance Directive Response Recorded Date/ Time Living Will No November 27, 2021 7:58am Power of Sand [employer]ber No November 27 7:58am Advance Directive Response Recorded Date/ Time Living Will No November 27, 2021 11:16am Power of Sand [employer]ber No November 27 11:16am Advance Directive Response Recorded Date/ Time Living Will No December 31 10:29am Power of Sand [employer]ber No December 31 10:29am Advance Directive Response Recorded Date/ Time Living Will No January 02 6:30am Power of Sand [employer]ber No January 02 6:30am Advance Directive Response Recorded Date/ Time Living Will No January 03 10:12am Power of Sand [employer]ber No January 03 10:12am Advance Directive Response Recorded Date/ Time Living Will No January 09 9:14am Power of Sand [employer]ber No January 09 9:14am Advance Directive Response Recorded Date/ Time Living Will No February 27 10:43am Power of Sand [employer]ber No February 27, 2022 10:43am Advance Directive Response Recorded Date/ Time Living Will No March 09 6:11am Power of Sand [employer]ber No March 09, 2022 6:11am Advance Directive Response Recorded Date/ Time Living Will No May 05 7:39pm Power of Sand [employer]ber No May 05, 2022 7:39pm Advance Directive Response Recorded Date/ Time Living Will No June 10 11:30am Power of Sand [employer]ber No June 10, 2022 11:30am Advance Directive Response Recorded Date/ Time Living Will No June 15 1:05pm Power of Sand [employer]ber No June 15, 2022 1:05pm Advance Directive Response Recorded Date/ Time Living Will No June 24, 2 023 6:18am Power of Sand [employer]ber No June 24, 2022 6:18am Advance Directive Response Recorded Date/ Time Living Will No July 01, 023 3:30am Power of Sand Bobber No 2022 3:30am Advance Directive Response Recorded Date/ Time Living Will No September 18, 2022 1: 57pm Power of Sand Bobber No September 18, 2022 1:57pm Advance Directive Response Recorded Date/ Time Living Will No March 30, 2 023 11:34pm Power of Sand Bobber No March 30, 2023 11:34pm Advance Directive Response Recorded Date/ Time Living Will No April 01 023 7:35am Power of Sand Bobber No April 01, 2023 7:35am Advance Directive Response Recorded Date/ Time Living Will No July 30, 2023 1:19am Power of Sand Bobber No July 29 1:19am Chief Complaint and Reason for Visit Chief Complaint abd pain CHECK UP ABD ABD PAIN ABD PAIN ABD PAIN gastritis gastritis Reason for Visit Abdominal pain COVID-19 virus infection Hyperlipidemia Subclinical hypothyroidism Vitamin D deficiency Chief Complaint abd pain CHECK UP ABD ABD PAIN ABD PAIN ABD PAIN gastritis gastritis ABD PAIN Reason for Visit Abdominal pain COVID-19 virus infection Hyperlipidemia Subclinical hypothyroidism Vitamin D deficiency Chief Complaint ABD PAIN gastritis gastritis ABD PAIN GASTRITIS EORDERS Reason for Visit Abdominal pain Chief Complaint gastritis ABD PAIN GASTRITIS EORDERS VOMITING Reason for Visit Abdominal pain Chief Complaint gastritis ABD PAIN GASTRITIS EORDERS VOMITING ABD PAIN Reason for Visit Abdominal pain Chief Complaint gastritis ABD PAIN GASTRITIS EORDERS VOMITING ABD PAIN abd Reason for Visit Abdominal pain Chief Complaint gastritis ABD PAIN GASTRITIS EORDERS VOMITING ABD PAIN abd abd Reason for Visit Abdominal pain Chief Complaint ABD PAIN GASTRITIS EORDERS VOMITING ABD PAIN abd abd ANXIETY/DEPRESSION stomach pain Reason for Visit Abdominal pain Anxiety Subclinical hypothyroidism Chief Complaint ABD PAIN GASTRITIS EORDERS VOMITING ABD PAIN abd abd ANXIETY/DEPRESSION stomach pain abd pain Reason for Visit Abdominal pain Anxiety Subclinical hypothyroidism Chief Complaint GASTRITIS EORDERS VOMITING ABD PAIN abd abd ANXIETY/DEPRESSION stomach pain abd pain abd pain Reason for Visit Abdominal pain Anxiety Subclinical hypothyroidism Chief Complaint GASTRITIS EORDERS VOMITING ABD PAIN abd abd ANXIETY/DEPRESSION stomach pain abd pain abd pain 1 M FU ABD PAIN Reason for Visit Abdominal pain Anxiety Subclinical hypothyroidism Anxiety Chief Complaint VOMITING ABD PAIN abd abd ANXIETY/DEPRESSION stomach pain abd pain abd pain 1 M FU ABD PAIN N/V Reason for Visit Anxiety Subclinical hypothyroidism Anxiety Chief Complaint VOMITING ABD PAIN abd abd ANXIETY/DEPRESSION stomach pain abd pain abd pain 1 M FU ABD PAIN N/V n/v Reason for Visit Anxiety Subclinical hypothyroidism Anxiety Chief Complaint 1 M FU ABD PAIN N/V n/v ABD PAIN Reason for Visit Anxiety Chief Complaint N/V n/v ABD PAIN VOMITING ABD PAIN Chief Complaint N/V n/v ABD PAIN VOMITING ABD PAIN ABD Chief Complaint N/V n/v ABD PAIN VOMITING ABD PAIN ABD abd pain Chief Complaint n/v ABD PAIN VOMITING ABD PAIN ABD abd pain abd pain Chief Complaint VOMITING ABD PAIN ABD abd pain abd pain nausea/vomiting Chief Complaint N/V Chief Complaint N/V ABD PAIN Chief Complaint ABD PAIN ABDOMINAL PAIN Health Concerns Infection Onset Date Last Indicated Resolved Time COVID-19 Rule-Out 04/30/2022 04/30/2022 05/01/2022 3:26 AM EST Additional Source Comments (unrecognized sect ion and content) No Status Records FoundNo Status Records FoundNo Status Records FoundNo Status Records FoundNo Status Records FoundNo Status Records Found INFORMATION SOURCE (unrecogn ized section and content) DATE CREATED AUTHOR 10/31/2017 [facility] DATE CREATED AUTHOR AUTHOR'S ORGANIZ ATION 11/01/2017 [facility] DATE CREATED AUTHOR AUTHOR'S ORGANIZ ATION 06/05/2021 [facility] ([place]) DATE CREATED AUTHOR AUTHOR'S ORGANIZ ATION 06/23/2022 [facility] DATE CREATED AUTHOR AUTHOR'S ORGANIZ ATION 08/05/2023 [facility] DATE CREATED AUTHOR AUTHOR'S ORGANIZ ATION 09/18/2024 [facility] Goals (unrecognized section and content) Goals may be documented in a n alternate sectionGoals may be documented in an alternate sectionGoals may be documented in an alternate sectionGoals may be documented in an alternate sectionGoals may be documented in an alternate sectionGoals may be documented in an alternate sectionGoals may be documented in an alternate sectionGoals may be documented in an alternate sectionGoals may be documented in an alternate sectionGoals may be documented in an alternate sectionGoals may be documented in an alternate sectionGoals may be documented in an alternate sectionGoals may be documented in an alternate sectionGoals may be documented in an alternate sectionGoals may be documented in an alternate sectionGoals may be documented in an alternate sectionGoals may be documented in an alternate sectionGoals may be documented in an alternate sectionGoals may be documented in an alternate sectionGoals may be documented in an alternate sectionGoals may be documented in an alternate sectionGoals may be documented in an alternate section Source Comments (unrecognize d section and content) In the event this informatio n is protected by the Federal Confidentiality of Alcohol and Drug Abuse Patient Records regulations: The Federal rules restrict any use of the information to criminally investigate or prosecute any alcohol or drug abuse patient.[facility] the event this information is protected by the Federal Confidentiality of Alcohol and Drug Abuse Patient Records regulations: The Federal rules restrict any use of the information to criminally investigate or prosecute any alcohol or drug abuse patient.[facility] the event this information is protected by the Federal Confidentiality of Alcohol and Drug Abuse Patient Records regulations: The Federal rules restrict any use of the information to criminally investigate or prosecute any alcohol or drug abuse patient.[facility] the event this information is protected by the Federal Confidentiality of Alcohol and Drug Abuse Patient Records regulations: The Federal rules restrict any use of the information to criminally investigate or prosecute any alcohol or drug abuse patient.[facility] Reason for Visit (unrecogniz ed section and content) Reason Comments poison shawanda all over x 3 days Reason Comments Nasal Congestion drainage, cough, sor e throat and back pain x 3 days Reason Comments right shoulder pain X 2 weeks-worse yest erday after lifting Care Teams (unrecognized sec tion and content) Physical Therapist Assistant Relationship Specialty Start Date End Date Mikayla Gill MD [address] [place] [address] PCP - General Internal Medicine 11/16/21 Team Status: Active Member Role Status Dates No Primary Care Physician Family Provider Active Dr. Mikayla Gill MD Primary Care Provider Active Team Status: Inactive Member Role Status Dates Dr. Mikayla Gill MD Primary Care Provider Active Dr. Maricarmen Wilson MD Attending Provider, Emergency Provider Active Team Status: Inactive Member Role Status Dates Dr. Mikayla Gill MD Primary Care Provider Active Jono White MD Attending Provider, Emergency Provid er Active Team Status: Inactive Member Role Status Dates Dr. Mikayla Gill MD Primary Care Provider Active Dr. Fely Mendoza MD Attending Provider, Emergency Provider Active Team Status: Inactive Member Role Status Dates Dr. Mikayla Gill MD Primary Care Provider Active Dr. Benny Stacy MD Attending Provider, Emergency Provi sharmila Active Team Status: Inactive Member Role Status Dates Dr. Mikayla Gill MD Primary Care Provider Active Dr. Babs Dodge DO Emergency Provider Active Team Status: Inactive Member Role Status Dates Dr. Mikayla Gill MD Primary Care Provider Active Jono White MD Emergency Provider Active Team Status: Inactive Member Role Status Dates Dr. Mikayla Gill MD Primary Care Provider Active Dr. Babs Dodge DO Attending Provider, Emergency P [facility] Active Team Status: Inactive Member Role Status Dates Dr. Mikayla Gill MD Primary Care Provider Active Dr. Roney Paul DO Emergency Provider Active Team Status: Inactive Member Role Status Dates Dr. Mikayla Gill MD Primary Care Provider Active Dr. Roney Paul DO Attending Provider, Emergency Pr ovider Active Team Status: Inactive Member Role Status Dates Dr. Mikayla Gill MD Primary Care Provider Active Dr. Benny Stacy MD Emergency Provider Active Team Status: Inactive Member Role Status Dates Dr. Mikayla Gill MD Primary Care Provider Active Dr. Shilo Olmedo DO Emergency Provider Active Team Status: Active Member Role Status Dates No Primary Care Physician Family Provider Active No Primary Care Physician Primary Care Provider Active Team Status: Inactive Member Role Status Dates Dr. Mikayla Gill MD Primary Care Provider Active Dr. Shilo Olmedo DO Attending Provider, Emergency Provider Active Team Status: Inactive Member Role Status Dates Dr. Benny Stacy MD Emergency Provider Active No Primary Care Physician Primary Care Provider Active Physical Therapist Assistant Relationship Specialty Start Date End Date Mikayla Gill MD [address] [place] [address] PCP - General Internal Medicine 11/16/21 Physical Therapist Assistant Relationship Specialty Start Date End Date Mikayla Gill MD [address] [place] [address] PCP - General Internal Medicine 11/16/21 FOR RECORDS PERTAINING TO PATIENTS WHO ARE OR HAVE BEEN ENROLLED IN A CHEMICAL DEPENDENCY/SUBSTANCEABUSE PROGRAM, SOME INFORMATION MAY BE OMITTED. This clinical summary was aggregated from multiple sources. Caution should be exercised in using it in the provision of clinical care. This summary normalizes information from multiple sources, and as a consequence, information in this document may materially change the coding, format and clinical context of patient data. In addition, data may be omitted in some cases. CLINICAL DECISIONS SHOULD BE BASED ON THE PRIMARY CLINICAL RECORDS. [facility]. provides no warranty or guarantee of the accuracy or completeness of information in this document.
[2025-05-11 04:15] LABS: AST(SGOT) 31 U/L (<=37); Alanine Aminotransfer ALT/SGPT 32 U/L (<=46); Albumin, Serum 4.7 g/dL (3.5-5.0); Alkaline Phosphatase 72 U/L (40-129); Anion Gap 13 (7-18); BUN 9 mg/dL (4-19); BUN/Creat Ratio 8.2 RATIO (10-20); Bilirubin, Direct 0.14 mg/dL (0.00-0.30); Calcium,Total 10.7 mg/dL (7.6-11.0); Carbon Dioxide 23.0 mmol/L (20.0-29.0); Chloride 104 mmol/L (96-106); Estimated Creatinine Clearance 111.37 ml/min (50-250); Globulin 3.2 g/dL (2.2-4.2); Glucose 111 mg/dL (70-99); Lipase 20 U/L (13-75); Potassium 4.4 mmol/L (3.5-5.1)
[2025-05-11] MEDS: DiphenhydrAMINE 50 MG, ChlorproMAZINE 50 MG in 0.9% Normal Saline (250mL Bag) 247 ML 250 MG IV (04:39)
--- NOTE | 2025-05-11 05:38 | EX.ED.DYSGE1 ---
HPI History of Present Illness Chief Complaint: Abd Pain Informant: patient Narrative Narrative: Patient is a 29-year-old male with past medical history of abdominal pain and gastritis which he states he developed from overuse of ibuprofen. He states he was at work this evening when he developed generalized abdominal discomfort with bouts of nausea vomiting and diarrhea. He denies any known sick contacts. He states there was no blood or discoloration to either the emesis or stool. However because of the pain and inability to keep food or fluid down he presents for evaluation [facility] Medical History Abdominal pain Depression Former smoker Nausea and vomiting Subclinical hypothyroidism Vitamin D deficiency Home Medications ?Medication ?Instructions ?Recorded ?Last Taken ?Type ondansetron 4 mg disintegrating 4 mg PO TID PRN nausea and 03/31/23 Unknown Rx tablet vomiting #21 tabs escitalopram oxalate 20 mg tablet 20 mg PO DAILY 07/30/23 Unknown History promethazine 25 mg tablet 25 mg PO TID PRN nausea and 05/11/25 Unknown Rx vomiting 7 days #21 tabs Allergy/AdvReac Type Severity Reaction Status Date / Time adhesive tape Allergy Rash Verified 05/11/25 03:24 ibuprofen (From Motrin) AdvReac Upset Verified 05/11/25 03:24 Stomach Family History Mother Asthma Surgical History History of appendectomy Social History household members: significant other Smoking Status: Never smoker alcohol intake: never substance use type: marijuana ROS ROS ED Constitutional Constitutional ED: Denies chills or fever(s) ENT ENT ED: Denies sore throat Cardiovascular Cardiovascular: Denies chest pain Respiratory/Chest Respiratory/Chest: Denies cough or dyspnea Gastrointestinal Gastrointestinal: Reports abdominal pain, diarrhea, nausea and vomiting Genitourinary Genitourinary ED: Denies dysuria or hematuria Musculoskeletal Musculoskeletal: Denies back pain or myalgias Integumentary Denies rash Neurologic Neurologic: Denies headache(s) Hematologic/Lymphatic Hematologic/Lymphatic: Denies easy bleeding or easy bruising EXAM Physical Exam Const Vital Signs: 05/11/25 03:24 05/11/25 05:40 05/11/25 05:53 Temperature 97.8 F 97.8 F Temperature Source Oral Pulse Rate 76 67 67 Respiratory Rate 22 H 18 18 Blood Pressure 158/124 H 169/89 H 169/89 H Blood Pressure Mean 135 115 115 Pulse Ox 100 100 100 Oxygen Delivery Method Room Air Room Air Positive well nourished and well developed General Appearance ED: well developed; Negative for pallor HEENT Reports moist mucous membranes HEENT Narrative: Normocephalic atraumatic No tongue or lip swelling no oral lesions no airway edema or compromise No secondary findings in the posterior pharynx to suggest infection Eyes PERRL and EOMs intact bilaterally General Eye ED: Negative for scleral icterus Neck supple Resp normal respiratory effort and clear to auscultation bilaterally Cardio regular rate and regular rhythm Rate: other Other Details: Heart is regular rate and rhythm without murmurs rubs or gallops Radial and carotid pulses are equal and symmetric GI non-distended and no masses GI Narrative: Abdomen is soft and nondistended with hyperactive bowel sounds No voluntary guarding or rigidity or pulsatile mass No peritoneal signs Auscultation: hyperactive bowel sounds Palpation: soft Extremity normal to inspection Neuro oriented x3, CN's II-XII intact bilaterally and no sensory deficits noted Sensorium / Orientation: alert Motor Exam: strength 5/5 throughout Psych Mood & Affect: anxious Skin no rashes or lesions noted and skin turgor normal General Skin Exam: Negative for jaundice or pallor MDM MDM MDM Narrative Medical decision making narrative: Patient arrived to the ER hypertensive but otherwise with stable vitals. He reported nausea vomiting and diarrhea associate with his abdominal discomfort and based on his history and physical exam symptoms are most consistent with a viral stomach infection such as norovirus or rotavirus. He denied any recent antibiotic use or travel outside the country and therefore I have low concern for infectious diarrhea such as C. difficile Salmonella or E. coli and his symptoms only been present for a few hours I do not feel the need for a stool study. His previous ER visits were reviewed and he had multiple CT scans in the past that did not show any obvious findings and therefore I felt no need for an emergent CT scan based on his nonsurgical abdominal exam. Labs revealed no leukocytosis his kidney function was normal liver enzymes were normal and lipase was normal going against biliary colic acute cholecystitis or acute pancreatitis. After receiving IV hydration as well as treatment with Protonix and Benadryl and Thorazine he had resolution of his symptoms. On repeat evaluation his abdomen is soft and nonsurgical. Therefore at this time with resolution of symptoms and overall negative workup I do not feel there is need for further intervention or imaging studies and is otherwise safe for discharge History & Record Review Discussion w/independent historian: Patient Additional record(s) reviewed:: Prior ED visit Lab Data Attestation: I reviewed the patient's lab results. Labs: Laboratory Results - last 24 hr 05/11/25 03:51 WBC 11.0 RBC 4.53 L Hgb 14.1 Hct 41.5 MCV 91.6 MCH 31.1 MCHC 34.0 RDW Std Deviation 41.3 RDW Coeff of Tanya 12.3 Plt Count 338 MPV 9.9 Immature Gran % (Auto) 0.500 Neut % (Auto) 80.8 H Lymph % (Auto) 13.1 L [place] % (Auto) 4.7 Eos % (Auto) 0.5 Baso % (Auto) 0.4 Absolute Neuts (auto) 8.9 H Absolute Lymphs (auto) 1.43 Nucleated RBC % 0 Sodium 140 Potassium 4.4 Chloride 104 Carbon Dioxide 23.0 Anion Gap 13 BUN 9 Creatinine 1.11 Estim Creat Clear Calc 111.37 Est GFR (MDRD) Non-Af 91 BUN/Creatinine Ratio 8.2 L Glucose 111 H Lactic Acid 2.4 H* Calcium 10.7 Total Bilirubin 0.35 Direct Bilirubin 0.14 AST 31 ALT 32 Alkaline Phosphatase 72 Total Protein 7.9 Albumin 4.7 Globulin 3.2 Lipase 20 Discharge Plan Triage Chief Complaint: Abd Pain ED Provider: Roney Paul Dx/Rx/DC Orders Clinical Impression: Nausea vomiting and diarrhea, Gastritis, Anxiety Instructions: Abdominal Pain, ED Gastroenteritis, Viral (Adult) Prescriptions: New promethazine 25 mg tablet 25 mg PO TID PRN (Reason: nausea and vomiting) 7 Days Qty: 21 0RF No Action ondansetron 4 mg tablet,disintegrating 4 mg PO TID PRN (Reason: nausea and vomiting) Qty: 21 0RF escitalopram oxalate 20 mg tablet 20 mg PO DAILY Stand Alone Forms: ED Work / School Excuse Primary Care Provider: Care Physician,No Primary Referrals: Friend,DO Franco [Med Staff - Active Staff, Gastroenterology] Care Physician,No Primary [Primary Care Provider, Medical] Activity Restrictions/Additional Instructions: Your workup today revealed no clinically significant findings. With your report of nausea vomiting diarrhea symptoms are most likely related to a viral stomach infection. This can last anywhere from 12 hours to 7 days with the average being 3 days. Take the Phenergan as directed to help control any further bouts of nausea and vomiting and keep yourself well-hydrated. Return to the ER should you have any further concerns Print Language: Faroese Disposition Disposition: Home, Self Care Discharge Date/Time: 05/11/25 05:54
[2025-05-11 05:40] VITALS: BP 169/89; PULSE 67; RESP 18; O2SAT 100
[2025-05-11 05:53] VITALS: BP 169/89; PULSE 67; RESP 18; TEMP 36.6; O2SAT 100
[2025-05-11 07:54] LABS: Reflex Lactate? Y
== END 2025-05-11 05:54 | disposition home or self-care (01) ==
PROVIDERS: Emergency Provider Emergency Medicine; Visit Provider Emergency Medicine
DX: R11.2 Nausea with vomiting, unspecified (principal); F41.9 Anxiety disorder, unspecified; R19.7 Diarrhea, unspecified; K29.70 Gastritis, unspecified, without bleeding
CPT/HCPCS: 80048; 80076; 83605; 83690; 85025; 96365; 96367; 99283; A4216